=== PATIENT | female | born 1955 | race Caucasian/White ===

== ENCOUNTER 2016-11-29 16:41 | Inpatient (IN) | payer OTHER ==
[2016-11-29] MEDS ORDERED: SODIUM CHLORIDE 0.9% 1,000 ML IV STA (19:36)
--- NOTE | 2016-11-29 19:40 | ED ---
Nausea/Vomiting/Diarrhea HPI - General Chief complaint: Nausea/Vomiting/Diarrhea Stated complaint: vomiting x2 days Time Seen by Provider: 11/29/16 19:25 Source: patient, family, RN notes reviewed Mode of arrival: wheelchair Limitations: no limitations - History of Present Illness Initial comments: 61-year-old female presents emergency Department chief complaint nausea vomiting since yesterday morning. Patient states that she has continuous he vomited. Patient states she just feels very nauseous at the time but has no real abdominal pain. Patient does admit to a prior cholecystectomy, tubal ligation and multiple C-sections. Patient states that she is on dialysis for renal failure secondary to her diabetes. Patient states she has not checked her blood sugar recently. States it has been up and down over the last 24 hours. He states she's not been hospitalist for diabetes recently. Patient states that she has fistula noted on the left arm for dialysis. Patient states she goes Sunday, , Sunday. Patient denies any chest pain or shortness breath. Patient denies fever, chills. Patient had no recent sick contacts with similar symptoms. - Related Data Home Medications Medication Instructions Recorded Confirmed Insulin Glargine [Lantus] 27 unit SQ HS 06/28/15 11/29/16 Furosemide [Lasix] 40 mg PO BID 09/08/15 11/29/16 Carvedilol 25 mg PO BID 09/22/15 11/29/16 Dicyclomine [Bentyl] 10 - 20 mg PO QID PRN 09/22/15 11/29/16 Metolazone [Zaroxolyn] 2.5 mg PO QAM 12/03/15 11/29/16 Colchicine [Colcrys] 0.6 mg PO DAILY 06/27/16 11/29/16 Gabapentin [Neurontin] 300 mg PO DAILY 06/27/16 11/29/16 Insulin Lispro [humaLOG Kwikpen] See Protocol SQ AC-TID 06/27/16 11/29/16 Aspirin [Adult Low Dose Aspirin EC] 81 mg PO DAILY 09/16/16 11/29/16 Fosrenol 500 mg PO AC-TID 09/16/16 11/29/16 Lidocaine-Prilocaine Cream [Emla 1 applic TOPICAL DAILY PRN 11/29/16 11/29/16 Cream 2.5%/2.5%] Lisinopril [Zestril] 10 mg PO DAILY 11/29/16 11/29/16 Multivitamins, Thera [Multivitamin] 1 tab PO DAILY 11/29/16 11/29/16 Ondansetron HCl [Zofran] 4 mg PO Q6H PRN 11/29/16 11/29/16 amLODIPine [Norvasc] 10 mg PO DAILY 11/29/16 11/29/16 Allergies Allergy/AdvReac Type Severity Reaction Status Date / Time sulfamethoxazole AdvReac Nausea & Verified 11/29/16 19:23 [From Bactrim] Vomiting,dyspnea trimethoprim [From Bactrim] AdvReac Nausea & Verified 11/29/16 19:23 Vomiting,dyspnea Review of Systems ROS Statement: Those systems with pertinent positive or pertinent negative responses have been documented in the HPI. ROS Other: All systems not noted in ROS Statement are negative. Past Medical History Past Medical History: Diabetes Mellitus, Hypertension, Renal Disease Additional Past Medical History / Comment(s): Stage III renal disease, neuropathy bilateral legs and feet, bilateral lower leg edema, IBS, gout, pt uses walker, dialysis fistula left arm- dialysis since July 2016, tue, , sat dialysis History of Any Multi-Drug Resistant Organisms: None Reported Past Surgical History: Appendectomy, Cardiac Ablation, Section, Cholecystectomy, Tubal Ligation Additional Past Surgical History / Comment(s): bilateral cataract removal with lens implants, C-sections, bilateral breast biopsies, graft left arm done for dialysis Past Anesthesia/Blood Transfusion Reactions: Postoperative Nausea & Vomiting ( PONV) Past Psychological History: No Psychological Hx Reported Additional Psychological History / Comment(s): Pt resides with her spouse. She is independent. She uses no assistive device. She drives. Smoking Status: Never smoker Past Alcohol Use History: None Reported Past Drug Use History: None Reported - Past Family History Father Family Medical History: Cancer, Diabetes Mellitus Additional Family Medical History / Comment(s): Father had prostate cancer. Mother Family Medical History: Cancer Additional Family Medical History / Comment(s): Mother had breast cancer. General Exam Limitations: no limitations General appearance: alert, in no apparent distress Head exam: Present: atraumatic, normocephalic, normal inspection Respiratory exam: Present: normal lung sounds bilaterally. Absent: respiratory distress, wheezes, rales, rhonchi, stridor Cardiovascular Exam: Present: regular rate, normal rhythm, normal heart sounds. Absent: systolic murmur, diastolic murmur, rubs, gallop, clicks GI/Abdominal exam: Present: soft, normal bowel sounds. Absent: distended, tenderness, guarding, rebound, rigid Neurological exam: Present: alert, oriented X3, CN II-XII intact Skin exam: Present: warm, dry, intact, normal color. Absent: rash Course Vital Signs 11/29/16 11/29/16 17:54 21:00 Temperature 97.1 F L 98 F Pulse Rate 90 82 Respiratory 20 20 Rate Blood Pressure 231/99 202/83 O2 Sat by Pulse 98 96 Oximetry Medical Decision Making - Lab Data Result diagrams: 11/29/16 19:50 11/29/16 20:48 Lab Results 11/29/16 11/29/16 11/29/16 Range/Units 19:50 19:50 19:52 WBC 17.2 H (3.8-10.6) k/uL RBC 4.40 (3.80-5.40) m/uL Hgb 14.7 (11.4-16.0) gm/dL Hct 45.3 (34.0-46.0) % MCV 103.0 H (80.0-100.0) fL MCH 33.5 (25.0-35.0) pg MCHC 32.5 (31.0-37.0) g/dL RDW 15.4 (11.5-15.5) % Plt Count 192 (150-450) k/uL Neutrophils % 86 % Lymphocytes % 9 % Monocytes % 4 % Eosinophils % 0 % Basophils % 1 % Neutrophils # 14.7 H (1.3-7.7) k/uL Lymphocytes # 1.6 (1.0-4.8) k/uL Monocytes # 0.7 (0-1.0) k/uL Eosinophils # 0.0 (0-0.7) k/uL Basophils # 0.1 (0-0.2) k/uL Macrocytosis Slight Sodium (137-145) mmol/L Potassium (3.5-5.1) mmol/L Chloride (98-107) mmol/L Carbon Dioxide (22-30) mmol/L Anion Gap mmol/L BUN (7-17) mg/dL Creatinine (0.52-1.04) mg/dL Est GFR (MDRD) Af Amer (>60 ml/min/1.73 sqM) Est GFR (MDRD) Non-Af (>60 ml/min/1.73 sqM) Glucose (74-99) mg/dL POC Glucose (mg/dL) 366 H (75-99) mg/dL POC Glu Rope Coiling Machine Operator ID Darrel Nunez Plasma Lactic Acid Milton 3.2 H* (0.7-2.0) mmol/L Calcium (8.4-10.2) mg/dL Phosphorus (2.5-4.5) mg/dL Magnesium (1.6-2.3) mg/dL Total Bilirubin (0.2-1.3) mg/dL AST (14-36) U/L ALT (9-52) U/L Alkaline Phosphatase (38-126) U/L Total Protein (6.3-8.2) g/dL Albumin (3.5-5.0) g/dL Amylase (30-110) U/L Lipase (23-300) U/L Urine Color Urine Appearance (Clear) Urine pH (5.0-8.0) Ur Specific [place] (1.001-1.035) Urine Protein (Negative) Urine Glucose (UA) (Negative) Urine Ketones (Negative) Urine Blood (Negative) Urine Nitrate (Negative) Urine Bilirubin (Negative) Urine Urobilinogen (<2.0) mg/dL Ur Leukocyte Esterase (Negative) Urine RBC (0-5) /hpf Urine WBC (0-5) /hpf Ur Squamous Epith Cells (0-4) /hpf Urine Bacteria (None) /hpf Urine Mucus (None) /hpf Gastric Occult Blood (Negative) Acetone, Qual (Negative) 11/29/16 11/29/16 11/29/16 Range/Units 20:38 20:48 21:09 WBC (3.8-10.6) k/uL RBC (3.80-5.40) m/uL Hgb (11.4-16.0) gm/dL Hct (34.0-46.0) % MCV (80.0-100.0) fL MCH (25.0-35.0) pg MCHC (31.0-37.0) g/dL RDW (11.5-15.5) % Plt Count (150-450) k/uL Neutrophils % % Lymphocytes % % Monocytes % % Eosinophils % % Basophils % % Neutrophils # (1.3-7.7) k/uL Lymphocytes # (1.0-4.8) k/uL Monocytes # (0-1.0) k/uL Eosinophils # (0-0.7) k/uL Basophils # (0-0.2) k/uL Macrocytosis Sodium 140 (137-145) mmol/L Potassium 4.2 (3.5-5.1) mmol/L Chloride 95 L (98-107) mmol/L Carbon Dioxide 19 L (22-30) mmol/L Anion Gap 26 mmol/L BUN 30 H (7-17) mg/dL Creatinine 4.60 H (0.52-1.04) mg/dL Est GFR (MDRD) Af Amer 12 (>60 ml/min/1.73 sqM) Est GFR (MDRD) Non-Af 10 (>60 ml/min/1.73 sqM) Glucose 379 H (74-99) mg/dL POC Glucose (mg/dL) (75-99) mg/dL POC Glu Rope Coiling Machine Operator ID Plasma Lactic Acid [place] (0.7-2.0) mmol/L Calcium 9.2 (8.4-10.2) mg/dL Phosphorus 5.6 H (2.5-4.5) mg/dL Magnesium 2.4 H (1.6-2.3) mg/dL Total Bilirubin 1.0 (0.2-1.3) mg/dL AST 28 (14-36) U/L ALT 32 (9-52) U/L Alkaline Phosphatase 97 (38-126) U/L Total Protein 7.2 (6.3-8.2) g/dL Albumin 4.1 (3.5-5.0) g/dL Amylase 32 (30-110) U/L Lipase 23 (23-300) U/L Urine Color Yellow Urine Appearance Clear (Clear) Urine pH 7.0 (5.0-8.0) Ur Specific [place] 1.009 (1.001-1.035) Urine Protein 4+ H (Negative) Urine Glucose (UA) 4+ H (Negative) Urine Ketones 3+ H (Negative) Urine Blood Small H (Negative) Urine Nitrate Negative (Negative) Urine Bilirubin Negative (Negative) Urine Urobilinogen <2.0 (<2.0) mg/dL Ur Leukocyte Esterase Negative (Negative) Urine RBC 2 (0-5) /hpf Urine WBC 1 (0-5) /hpf Ur Squamous Epith Cells 1 (0-4) /hpf Urine Bacteria Rare H (None) /hpf Urine Mucus Rare H (None) /hpf Gastric Occult Blood Positive (Negative) Acetone, Qual Positive (Negative) Disposition Clinical Impression: DKA (diabetic ketoacidoses), Upper GI bleed, Chronic renal failure, Hypertension, Nausea & vomiting Disposition: ADMITTED IP TO THIS HOSP
[2016-11-29] MEDS ORDERED: LABETALOL SYRINGE 5 MG/ML IVP STA (19:41)
[2016-11-29 19:57] LABS: Glucose,Whole Blood 366 mg/dL (75-99)
[2016-11-29] MEDS ORDERED: ONDANSETRON 4 MG/2 ML VIAL IVP STA (19:59)
[2016-11-29 20:09] LABS: Basophils # (A) 0.1 k/uL (0-0.2); Basophils % (A) 1 %; CHCM 33.2; Eosinophils % (A) 0 %; HCT 45.3 % (34.0-46.0); HDW 2.93; HGB 14.7 gm/dL (11.4-16.0); Luc # (Auto) 0.06; Luc % (Auto) 0; Lymphocytes # (A) 1.6 k/uL (1.0-4.8); Lymphocytes % (A) 9 %; MCH 33.5 pg (25.0-35.0); MCHC 32.5 g/dL (31.0-37.0); Macrocytosis Slight; Mean Platelet Volume 9.1; Monocytes # (A) 0.7 k/uL (0-1.0); Monocytes % (A) 4 %; Neutrophils # (A) 14.7 k/uL (1.3-7.7); Neutrophils % (A) 86 %; RDW 15.4 % (11.5-15.5); WBC 17.2 k/uL (3.8-10.6); WBC (Perox) 17.07
--- NOTE | 2016-11-29 20:26 | XR ---
EXAMINATION TYPE: XR KUB DATE OF EXAM: 11/29/2016 8:21 PM COMPARISON: NONE HISTORY: Vomiting for 2 days TECHNIQUE: 2 views FINDINGS: There is no sign of intestinal obstruction or pneumoperitoneum. Fecal pattern is normal. Th ere is no sign of a mass. Lung bases are clear. There are no pathologic calcifications over the kidne ys. IMPRESSION: Nonacute abdomen.
[2016-11-29] MEDS ORDERED: PANTOPRAZOLE 40 MG/10 ML VIAL IVP STA (20:49)
[2016-11-29 20:50] LABS: Appearance,Urine Clear (Clear); Bacteria,Urine Rare /hpf; Bilirubin,Urine Negative (Negative); Glucose,Urine (UA) 4+ (Negative); Leukocyte Esterase,Urine Negative (Negative); Mucus,Urine Rare /hpf; Nitrite,Urine Negative (Negative); Particle Count 1430; Protein,Urine 4+ (Negative); RBC,Urine 2 /hpf (0-5); Specific Gravity,Urine 1.009 (1.001-1.035); Squamous Epithelial Cell,Urine 1 /hpf (0-4); UA Billing (MACRO vs. MICRO) MICRO; Urobilinogen,Urine <2.0 mg/dL (<2.0); WBC,Urine 1 /hpf (0-5)
[2016-11-29] MEDS ORDERED: SODIUM CHLORIDE 0.9% 1,000 ML IV ONE (20:52)
[2016-11-29 20:53] LABS: Ketones,Urine 3+ (Negative)
[2016-11-29 21:13] LABS: ALT 32 U/L (9-52); AST 28 U/L (14-36); Alkaline Phosphatase 97 U/L (38-126); Amylase 32 U/L (30-110); Anion Gap 26 mmol/L; Blood Urea Nitrogen 30 mg/dL (7-17); Calcium 9.2 mg/dL (8.4-10.2); Carbon Dioxide 19 mmol/L (22-30); Chloride 95 mmol/L (98-107); Glucose 379 mg/dL (74-99); Magnesium 2.4 mg/dL (1.6-2.3); Phosphorous 5.6 mg/dL (2.5-4.5); Potassium 4.2 mmol/L (3.5-5.1); Sodium 140 mmol/L (137-145); Total Protein 7.2 g/dL (6.3-8.2)
[2016-11-29 21:15] LABS: Non-African American GFR(MDRD) 10 (>60 ml/min/1.73 sqM)
[2016-11-29] MEDS: INSULIN REGULAR 100 UNIT in SODIUM CHLORIDE 0.9% 100 ML IV SCH (21:51)
[2016-11-29 21:56] LABS: Glucose,Whole Blood 353 mg/dL (75-99)
[2016-11-29] MEDS: ONDANSETRON 4 MG/2 ML VIAL IVP PRN (22:25)
[2016-11-29 22:50] LABS: Hemoglobin A1C 7.8 % (4.2-6.1)
[2016-11-29 23:17] LABS: Glucose,Whole Blood 328 mg/dL (75-99)
[2016-11-30] MEDS ORDERED: METOCLOPRAMIDE 5 MG/ML 2 ML VIAL IVP STA (00:32)
[2016-11-30 00:41] LABS: Glucose,Whole Blood 238 mg/dL (75-99)
[2016-11-30] MEDS: D5-0.45% NACL WITH KCL 20MEQ/L 1,000 ML IV SCH ×3 (00:41→08:31)
[2016-11-30 01:15] LABS: Basophils # (A) 0.1 k/uL (0-0.2); Basophils % (A) 0 %; CH 33.6; CHCM 32.7; Eosinophils # (A) 0.1 k/uL (0-0.7); Eosinophils % (A) 0 %; HCT 39.4 % (34.0-46.0); HDW 2.89; HGB 12.6 gm/dL (11.4-16.0); Luc # (Auto) 0.07; Luc % (Auto) 1; Lymphocytes # (A) 1.2 k/uL (1.0-4.8); Lymphocytes % (A) 9 %; MCH 33.1 pg (25.0-35.0); MCHC 32.1 g/dL (31.0-37.0); MCV 103.2 fL (80.0-100.0); Macrocytosis Moderate; Mean Platelet Volume 8.7; Monocytes # (A) 0.7 k/uL (0-1.0); Monocytes % (A) 5 %; Neutrophils # (A) 12.1 k/uL (1.3-7.7); Neutrophils % (A) 85 %; RBC 3.82 m/uL (3.80-5.40); RDW 15.4 % (11.5-15.5); WBC 14.3 k/uL (3.8-10.6); WBC (Perox) 15.16
[2016-11-30 01:24] LABS: Phosphorous 3.6 mg/dL (2.5-4.5); Potassium 3.3 mmol/L (3.5-5.1)
[2016-11-30 01:43] LABS: Glucose,Whole Blood 189 mg/dL (75-99)
[2016-11-30] MEDS: SODIUM CHLORIDE 0.9% 1,000 ML IV SCH ×3 (01:43→07:51)
[2016-11-30] MEDS ORDERED: LABETALOL SYRINGE 5 MG/ML IVP PRN (02:13)
[2016-11-30] MEDS ORDERED: Potassium Replacement Protocol 1 EACH MISC MISCELLANE PRN (02:19)
[2016-11-30 02:42] LABS: Glucose,Whole Blood 170 mg/dL (75-99)
[2016-11-30] MEDS: POTASSIUM CHLORIDE ER 20 MEQ TAB.ER PO SCH ×3 (02:42→07:05)
[2016-11-30] MEDS: cloNIDine HCL 0.2 MG TAB PO SCH ×4 (02:42→21:19)
[2016-11-30 03:39] LABS: Glucose,Whole Blood 153 mg/dL (75-99)
[2016-11-30 04:30] LABS: Glucose,Whole Blood 111 mg/dL (75-99)
[2016-11-30 05:34] LABS: Glucose,Whole Blood 84 mg/dL (75-99)
[2016-11-30 05:38] LABS: Basophils # (A) 0.1 k/uL (0-0.2); Basophils % (A) 1 %; CH 33.6; CHCM 33.1; Eosinophils # (A) 0.2 k/uL (0-0.7); Eosinophils % (A) 1 %; HCT 37.1 % (34.0-46.0); HDW 2.88; Luc # (Auto) 0.18; Luc % (Auto) 1; Lymphocytes # (A) 1.9 k/uL (1.0-4.8); Lymphocytes % (A) 13 %; MCH 32.9 pg (25.0-35.0); MCHC 32.3 g/dL (31.0-37.0); Macrocytosis Slight; Mean Platelet Volume 9.2; Monocytes % (A) 7 %; Neutrophils # (A) 10.9 k/uL (1.3-7.7); Neutrophils % (A) 77 %; RBC 3.64 m/uL (3.80-5.40); RDW 15.4 % (11.5-15.5); WBC 14.3 k/uL (3.8-10.6)
[2016-11-30 05:53] LABS: Phosphorous 2.9 mg/dL (2.5-4.5); Potassium 3.8 mmol/L (3.5-5.1)
[2016-11-30 05:59] LABS: Glucose,Whole Blood 87 mg/dL (75-99)
[2016-11-30 06:43] LABS: Glucose,Whole Blood 100 mg/dL (75-99)
[2016-11-30] MEDS: ONDANSETRON 4 MG/2 ML VIAL IVP PRN ×3 (07:03→19:34)
[2016-11-30] MEDS ORDERED: GELATIN SPONGE,ABSORB (SMALL) 1 EACH SPONGE ONE (08:00)
[2016-11-30] MEDS: CARVEDILOL 12.5 MG TAB PO SCH ×2 (08:03→21:19)
[2016-11-30] MEDS: FUROSEMIDE 40 MG TAB PO SCH ×2 (08:04→08:06)
[2016-11-30] MEDS: amLODIPine 10 MG TAB PO SCH (08:04)
[2016-11-30] MEDS: LISINOPRIL 10 MG TAB PO SCH (08:04)
[2016-11-30] MEDS: METOLAZONE 2.5 MG TAB PO SCH ×2 (08:05→08:06)
[2016-11-30] MEDS: PANTOPRAZOLE 40 MG/10 ML VIAL IVP SCH ×2 (08:05→21:22)
[2016-11-30 08:11] LABS: Glucose,Whole Blood 136 mg/dL (75-99)
[2016-11-30] MEDS: INSULIN REGULAR 100 UNIT in SODIUM CHLORIDE 0.9% 100 ML IV SCH (08:31)
[2016-11-30 09:11] LABS: Glucose,Whole Blood 144 mg/dL (75-99)
[2016-11-30 10:14] LABS: Glucose,Whole Blood 153 mg/dL (75-99)
[2016-11-30 10:37] LABS: Calcium 8.6 mg/dL (8.4-10.2); Potassium 3.9 mmol/L (3.5-5.1); Total Bilirubin 0.7 mg/dL (0.2-1.3)
[2016-11-30 10:46] VITALS: BMI 35.3
[2016-11-30 11:16] LABS: Glucose,Whole Blood 167 mg/dL (75-99)
--- NOTE | 2016-11-30 11:59 | P.CONS ---
History of Present Illness - Reason for Consult Consult date: 11/30/16 Upper GI bleed coffee-ground emesis Requesting physician: Usman Silva - History of Present Illness 61-year-old female patient Dr. Ingram with a past medical history of insulin- dependent diabetes mellitus, end-stage renal disease hemodialysis Sunday, hypertension, neuropathy, gout, and IBS. Admitted with DKA intractable nausea vomiting with a few episodes of coffee-ground emesis. Symptoms started 2 days ago. This morning she is having considerable amount of nausea with clear colored phlegm in emesis basin. Denies hematochezia or melena. No fever or chills. No history of DKA, peptic ulcer disease or EGD. Admission white count 17 currently 14. Hemoglobin 12. Platelet 184. BUN 32. Creatinine 4.6. Glucose 100-366. Intravenous insulin. Mild midepigastric discomfort. Review of Systems Constitutional: Denies fever, chills, sweats, weight gain, or loss. HEENT: Negative for migraines, blurred vision or loss, earaches, drainage, tinnitus, oral mucosal lesions, dysphagia, or odynophagia. CARDIAC: Hypertension. Negative for chest pain, arrhythmias, or palpitation. RESPIRATORY: Negative for shortness of breath, hemoptysis, cough, or sputum production. GI: See HPI for pertinent findings. : Negative for hematuria, urgency, frequency, polyuria, or dysuria. GYNc: Denies possibility of . Negative vaginal discharge. MUSCULOSKELETAL: Negative for muscle aches, swelling, arthritis, and arthralgias. NEUROLOGIC: Neuropathy. Negative for stroke or TIA. ENDOCRINE: Gout. Insulin-dependent diabetes mellitus. End-stage renal disease. Negative for thyroid problems. SKIN: Negative for rash or itching. PSYCHIATRIC: Negative history for depression and anxiety All systems: negative (See HPI) Past Medical History Past Medical History: Diabetes Mellitus, Hypertension, Renal Disease Additional Past Medical History / Comment(s): Stage III renal disease, neuropathy bilateral legs and feet, bilateral lower leg edema, IBS, gout, pt uses walker, dialysis fistula left arm- dialysis since July 2016, sun, , sun dialysis History of Any Multi-Drug Resistant Organisms: None Reported Past Surgical History: Appendectomy, Cardiac Ablation, Section, Cholecystectomy, Tubal Ligation Additional Past Surgical History / Comment(s): bilateral cataract removal with lens implants, C-sections, bilateral breast biopsies, graft left arm done for dialysis Past Anesthesia/Blood Transfusion Reactions: Postoperative Nausea & Vomiting ( PONV) Past Psychological History: No Psychological Hx Reported Additional Psychological History / Comment(s): Pt resides with her spouse. She is independent. She uses no assistive device. She drives. Smoking Status: Never smoker Past Alcohol Use History: None Reported Past Drug Use History: None Reported - Past Family History Father Family Medical History: Cancer, Diabetes Mellitus Additional Family Medical History / Comment(s): Father had prostate cancer. Mother Family Medical History: Cancer Additional Family Medical History / Comment(s): Mother had breast cancer. Medications and Allergies Home Medications Medication Instructions Recorded Confirmed Type Insulin Glargine [Lantus] 27 unit SQ HS 06/28/15 11/29/16 History Carvedilol 25 mg PO BID 09/22/15 11/29/16 History Colchicine [Colcrys] 0.6 mg PO DAILY 06/27/16 11/29/16 History Gabapentin [Neurontin] 300 mg PO DAILY 06/27/16 11/29/16 History Insulin Lispro [humaLOG Kwikpen] See Protocol SQ AC-TID 06/27/16 11/29/16 History Aspirin [Adult Low Dose Aspirin EC] 81 mg PO DAILY 09/16/16 11/29/16 History Fosrenol 500 mg PO AC-TID 09/16/16 11/29/16 History Lidocaine-Prilocaine Cream [Emla 1 applic TOPICAL DAILY PRN 11/29/16 11/29/16 History Cream 2.5%/2.5%] Lisinopril [Zestril] 10 mg PO DAILY 11/29/16 11/29/16 History Multivitamins, Thera [Multivitamin] 1 tab PO DAILY 11/29/16 11/29/16 History Ondansetron HCl [Zofran] 4 mg PO Q6H PRN 11/29/16 11/29/16 History amLODIPine [Norvasc] 10 mg PO DAILY 11/29/16 11/29/16 History Allergies Allergy/AdvReac Type Severity Reaction Status Date / Time sulfamethoxazole AdvReac Nausea & Verified 11/29/16 19:23 [From Bactrim] Vomiting,dyspnea trimethoprim [From Bactrim] AdvReac Nausea & Verified 11/29/16 19:23 Vomiting,dyspnea Physical Exam Vitals: Vital Signs Temp Pulse Pulse Resp BP BP BP 11/30/16 11:17 98 F 71 18 158/70 11/30/16 08:00 98.1 F 104 H 18 168/89 11/30/16 04:13 97 F L 81 18 176/76 11/30/16 02:30 178/83 11/30/16 01:30 97.7 F 90 18 215/80 229/100 11/30/16 01:01 98.9 F 84 19 179/73 11/29/16 23:34 77 18 164/72 11/29/16 22:26 98.1 F 85 16 188/89 11/29/16 21:53 98 F 84 18 191/82 Pulse Ox 11/30/16 11:17 93 L 11/30/16 08:00 92 L 11/30/16 04:13 91 L 11/30/16 02:30 11/30/16 01:30 94 L 11/30/16 01:01 95 11/29/16 23:34 94 L 11/29/16 22:26 97 11/29/16 21:53 97 Intake and Output 11/29/16 11/30/16 11/30/16 22:59 06:59 14:59 Intake Total 66.449 5.485 Balance 66.449 5.485 Intake: Intake, IV Titration 66.449 5.485 Amount Insulin Regular 100 unit 66.449 5.485 In Sodium Chloride 0.9% 100 ml @ 0.1 UNITS/KG/HR 9.16 mls/hr IV .Q11H2M [facility] Rx#:[id number] Other: # Voids 0 Weight 90.5 kg 90.5 kg Patient Weight 12/01/16 06:59 Weight 90.5 kg General appearance: The patient is alert, oriented, in no acute distress. HET: Head is normocephalic and atraumatic. Pupils are equal and reactive. Oropharynx is clear without lesions. Neck: Supple without lymphadenopathy. Trachea midline. Heart: S1 S2. Regular rate and rhythm. Lungs: No crackles or wheezes are heard. Abdomen: Soft, nontender, nondistended with bowel sounds. No peritoneal signs. No palpable organomegaly or masses. Extremities: Normal skin color and turgor. No cyanosis, rash, ulceration, clubbing, or edema. Radial and pedal pulses are 2/4 bilaterally. Neurological: No focal deficits. Strength and sensation are grossly intact. Results CBC & Chem 7: 11/30/16 05:23 11/30/16 09:59 Labs: Abnormal Lab Results - Last 24 Hours (Table) 11/29/16 11/29/16 11/30/16 Range/Units 21:56 23:15 00:27 WBC (3.8-10.6) k/uL RBC (3.80-5.40) m/uL MCV (80.0-100.0) fL Neutrophils # (1.3-7.7) k/uL Potassium (3.5-5.1) mmol/L BUN (7-17) mg/dL Creatinine (0.52-1.04) mg/dL Glucose (74-99) mg/dL POC Glucose (mg/dL) 353 H 328 H 238 H (75-99) mg/dL Plasma Lactic Acid [place] (0.7-2.0) mmol/L Total Protein (6.3-8.2) g/dL Albumin (3.5-5.0) g/dL 11/30/16 11/30/16 11/30/16 Range/Units 01:00 01:00 01:41 WBC 14.3 H (3.8-10.6) k/uL RBC (3.80-5.40) m/uL MCV 103.2 H (80.0-100.0) fL Neutrophils # 12.1 H (1.3-7.7) k/uL Potassium 3.3 L (3.5-5.1) mmol/L BUN 32 H (7-17) mg/dL Creatinine 4.60 H (0.52-1.04) mg/dL Glucose 231 H (74-99) mg/dL POC Glucose (mg/dL) 189 H (75-99) mg/dL Plasma Lactic Acid [place] (0.7-2.0) mmol/L Total Protein (6.3-8.2) g/dL Albumin (3.5-5.0) g/dL 11/30/16 11/30/16 11/30/16 Range/Units 02:40 03:37 04:28 WBC (3.8-10.6) k/uL RBC (3.80-5.40) m/uL MCV (80.0-100.0) fL Neutrophils # (1.3-7.7) k/uL Potassium (3.5-5.1) mmol/L BUN (7-17) mg/dL Creatinine (0.52-1.04) mg/dL Glucose (74-99) mg/dL POC Glucose (mg/dL) 170 H 153 H 111 H (75-99) mg/dL Plasma Lactic Acid [place] (0.7-2.0) mmol/L Total Protein (6.3-8.2) g/dL Albumin (3.5-5.0) g/dL 11/30/16 11/30/16 11/30/16 Range/Units 05:23 05:23 05:23 WBC 14.3 H (3.8-10.6) k/uL RBC 3.64 L (3.80-5.40) m/uL MCV 102.0 H (80.0-100.0) fL Neutrophils # 10.9 H (1.3-7.7) k/uL Potassium (3.5-5.1) mmol/L BUN 34 H (7-17) mg/dL Creatinine 4.44 H (0.52-1.04) mg/dL Glucose (74-99) mg/dL POC Glucose (mg/dL) (75-99) mg/dL Plasma Lactic Acid [place] 2.3 H* (0.7-2.0) mmol/L Total Protein (6.3-8.2) g/dL Albumin (3.5-5.0) g/dL 11/30/16 11/30/16 11/30/16 Range/Units 06:42 08:07 09:04 WBC (3.8-10.6) k/uL RBC (3.80-5.40) m/uL MCV (80.0-100.0) fL Neutrophils # (1.3-7.7) k/uL Potassium (3.5-5.1) mmol/L BUN (7-17) mg/dL Creatinine (0.52-1.04) mg/dL Glucose (74-99) mg/dL POC Glucose (mg/dL) 100 H 136 H 144 H (75-99) mg/dL Plasma Lactic Acid [place] (0.7-2.0) mmol/L Total Protein (6.3-8.2) g/dL Albumin (3.5-5.0) g/dL 11/30/16 11/30/16 11/30/16 Range/Units 09:59 10:02 11:14 WBC (3.8-10.6) k/uL RBC (3.80-5.40) m/uL MCV (80.0-100.0) fL Neutrophils # (1.3-7.7) k/uL Potassium (3.5-5.1) mmol/L BUN 34 H (7-17) mg/dL Creatinine 4.40 H (0.52-1.04) mg/dL Glucose 164 H (74-99) mg/dL POC Glucose (mg/dL) 153 H 167 H (75-99) mg/dL Plasma Lactic Acid [place] (0.7-2.0) mmol/L Total Protein 6.0 L (6.3-8.2) g/dL Albumin 3.1 L (3.5-5.0) g/dL Assessment and Plan (1) Coffee ground emesis Narrative/Plan: Suspect gastritis possible esophagitis and possible Malka-Alvares tear exacerbated by multiple episodes of retching secondary DKA. Status: Acute (2) DKA (diabetic ketoacidoses) Status: Acute (3) Nausea & vomiting Status: Acute (4) End stage renal disease on dialysis Status: Chronic (5) Diabetes Status: Chronic Plan: 1. Protonix 40 mg IV twice daily. Will add Reglan 10 mg every 6 hours as needed for nausea. Supportive measures. Tight glycemic control. Endoscopy not planned at this time but contingent on clinical course. We'll follow with you. Monitor CBC. Thank you for this kind referral and the opportunity to participate in the care of your patient. This consultation was discussed with Dr. Stock. The impression and plan of care have been directed as dictated.
[2016-11-30] MEDS: METOCLOPRAMIDE 5 MG/ML 2 ML VIAL IVP PRN ×2 (12:11→18:40)
[2016-11-30 12:27] LABS: Glucose,Whole Blood 155 mg/dL (75-99)
[2016-11-30 13:10] LABS: Glucose,Whole Blood 154 mg/dL (75-99)
--- NOTE | 2016-11-30 14:03 | CONS ---
DATE OF CONSULTATION: 11/30/2016 REASON FOR CONSULT: End-stage renal disease. HISTORY OF PRESENT ILLNESS: Patient is a 61-year-old white female with history of end-stage renal disease on hemodialysis on a Sunday, , Sunday schedule. She was admitted to the hospital with complaints of nausea and vomiting which has been going on for a few days prior to admission. The patient denies any fever or chills. She has also had some diarrhea. She denies any significant abdominal pain. Her serum acetone was elevated. Blood sugars according to the patient had high as well as low and patient is admitted for DKA. She is currently maintained on an insulin drip. Her sugars had been ( ) on initial admission. PAST MEDICAL HISTORY: End-stage renal disease, hypertension with episodes of hypotension as well particularly with dialysis. Chronic lower extremity edema likely lymphedema, particularly in the left lower extremity as compared to the right, type 2 diabetes, obesity, neuropathy, hyperuricemia/gout. Medications at home included insulin, Lasix, Coreg, Ventolin, Zaroxolyn, Colcrys, Neurontin, Zofran, Norvasc, Fosrenol. Allergies include BACTRIM, nausea, vomiting and shortness of breath. REVIEW OF SYSTEMS: As per HPI. Other systems negative. PAST MEDICAL HISTORY: Type 2 diabetes, hypertension, end-stage renal disease, chronic lower extremity likely lymphedema, cardiac dysrhythmias status post cardiac catheterization. PAST SURGICAL HISTORY: Appendectomy, AV fistula, cardiac catheterizations, , cholecystectomy, tubal ligation, cataract surgery, breast biopsies. Social history is negative for smoking, drug abuse or alcohol abuse On examination, patient is comfortable, awake, alert and oriented x3. She is not in any acute distress. Blood pressure is 158/70, heart rate 71 per minute. She is afebrile. Examination of the heart S1 and S2. Examination of the lungs, bilateral breath sounds are heard. Abdomen is soft, nontender. No organomegaly is seen. The lower extremities shows no significant edema in the right lower extremity, there is 2+ edema in left lower extremity which is chronic and significantly improved from baseline. TIRE GROOVER exam is grossly intact. Labs show sodium 140, potassium 3.9, anion gap was at 12 and albumin 3.1, serum acetone was positive. Gastric occult blood was positive. Hemoglobin was at 12.0. White cell count 14.3, it was 17.2 on 11/29/2016. ASSESSMENT: 1. End-stage renal disease on hemodialysis on a Sunday, , Sunday schedule. Will arrange for hemodialysis today with no significant ultrafiltration. 2. Diabetic ketoacidosis, currently improving, likely discontinue the insulin drip ( ) and we will stop the fluids as well. 3. Nausea and vomiting, most likely secondary to diabetic gastroparesis. No evidence of significant infection noted at this time. 4. Chronic lower extremity edema, particularly left lower extremity, possible underlying lymphedema. PLAN: Hemodialysis today with no significant ultrafiltration, try to encourage increased oral intake depending on the nausea. Continue with the Zofran. GI has been consulted. Thank you for this consultation. Will continue to follow the patient with you during her hospitalization.
[2016-11-30 14:15] LABS: Glucose,Whole Blood 165 mg/dL (75-99)
[2016-11-30 14:39] LABS: Calcium 8.3 mg/dL (8.4-10.2); Potassium 4.9 mmol/L (3.5-5.1); Total Bilirubin 0.7 mg/dL (0.2-1.3); Total Protein 5.6 g/dL (6.3-8.2)
--- NOTE | 2016-11-30 16:43 | HP ---
DATE OF ADMISSION: Patient is a 61-year-old who follows with Dr. Ingram. She came in with complaints of end-stage renal disease, insulin-dependent diabetes mellitus. Came in with complaints of nausea, vomiting that have been going on for 3 to 4 days. Patient denied any fevers. Patient denied any flu-like symptoms. Patient was complaining of epigastric abdominal pain. Patient probably has gastritis. She was retching. Patient had an episode of hematemesis, which resolved at this point of time. Patient is admitted for DKA. Anion gap resolved and patient will be resumed on her insulin. Patient denied any dysuria, denied any cough, runny nose. Patient has end-stage renal disease, because of which patient's IV fluids will be discontinued, as her DKA resolved. Patient's diuretics will be held for today, and tomorrow they will be reinitiated back. Patient denied any history of peptic ulcer disease. We will treat her nausea, vomiting symptomatically probably due to gastritis or esophagitis. Patient will be continued on proton pump inhibitor, avoiding NSAIDs. The reason for her uncontrolled blood sugars and DKA is unknown at this point of time. REVIEW OF SYSTEMS: CONSTITUTIONAL: No fever, no malaise, no fatigue. HEENT: No recent visual problems or hearing problems. Denied any sore throat. CARDIOVASCULAR: No chest pain, orthopnea, PND, no palpitations, no syncope. PULMONARY: No shortness of breath, no cough, no hemoptysis. GASTROINTESTINAL: As described in HPI. NEUROLOGICAL: No headaches, no weakness, no numbness. HEMATOLOGICAL: Denies any bleeding or petechiae. GENITOURINARY: Denies any burning micturition, frequency, or urgency. MUSCULOSKELETAL/RHEUMATOLOGICAL: Denies any joint pain, swelling, or any muscle pain. ENDOCRINE: Denies any polyuria or polydipsia. The rest of the 14 point review of systems is negative. Past medical history is significant for: 1. Diabetes mellitus, insulin-dependent. (unsure whether type 1 or type 2) 2. Hypertension. 3. CKD. 4. End-stage renal disease secondary to diabetic nephropathy. 5. Appendectomy. 6. Cardiac ablation surgery. 7. section. 8. Cholecystectomy in the past. 9. Bilateral breast masses. 10. Left arm grafts. SOCIAL HISTORY: Denied any smoking or alcohol abuse or any drug abuse. FAMILY HISTORY: Father had cancer, diabetes mellitus. Father had prostate cancer. Mother had breast cancer. Home medications include: 1. Insulin. 2. ( ) 3. Gabapentin. 4. Lispro. 5. Aspirin. 6. Lidocaine. 7. Lisinopril. 8. Multivitamin. 9. Ondansetron. 10. Amlodipine. ALLERGIES: BACTRIM. PHYSICAL EXAMINATION: VITAL SIGNS: Temperature 98.0, pulse of 71, respiratory rate of 18, blood pressure 158/70. Saturating at 93% on room air. GENERAL: The patient is alert and oriented x3, not in any acute distress. Well developed, well nourished. HEENT: Pupils are round and equally reacting to light. EOMI. No scleral icterus. No conjunctival pallor. Normocephalic, atraumatic. No pharyngeal erythema. No thyromegaly. CARDIOVASCULAR: S1 and S2 present. No murmurs, rubs, or gallops. PULMONARY: Chest is clear to auscultation, no wheezing or crackles. ABDOMEN: Soft, nontender, nondistended, normoactive bowel sounds. No palpable organomegaly. MUSCULOSKELETAL: No joint swelling or deformity. EXTREMITIES: No cyanosis, clubbing, or pedal edema. NEUROLOGICAL: Gross neurological examination did not reveal any focal deficits. SKIN: No rashes. LABORATORY DATA: CBC, CMP are abnormal for elevated WBC count of 14,300. Patient's anion gap improved. Bicarbonate is 24. Anion gap is 10 now. BUN of 32, creatinine 4.4. Blood glucose is elevated. UA is consistent with DKA and acetone positive. ASSESSMENT AND PLAN: 1. Diabetic ketoacidosis, anion gap as well. Patient will be resumed on her insulin regimen. Will start her on diet and continue on symptomatic therapy for her nausea, vomiting. 2. Upper gastrointestinal bleed secondary to retching and esophagitis. 3. Nausea, vomiting, which probably precipitated her DKA, which is again secondary to esophagitis. Patient is on proton pump inhibitor for that. 4. End-stage renal disease, hemodialysis-dependent, because of which I will stop the IV fluids. Patient will be resumed on diuretic therapy tomorrow. 5. Diabetic neuropathy, diabetic nephropathy, end-stage renal disease secondary to diabetes. 6. Hypertension. For above-mentioned chronic medical problems, I will go ahead and continue her home medications.
[2016-11-30 16:49] LABS: Glucose,Whole Blood 190 mg/dL (75-99)
[2016-11-30] MEDS: GABAPENTIN 300 MG CAP PO SCH (17:02)
[2016-11-30] MEDS: INSULIN LISPRO (humaLOG) 300 UNIT/3 ML VIAL SQ SCH ×2 (17:03→21:16)
[2016-11-30] MEDS: SEVELAMER 800 MG TAB PO SCH (17:04)
[2016-11-30 20:36] LABS: Glucose,Whole Blood 93 mg/dL (75-99)
[2016-11-30] MEDS: INSULIN GLARGINE 100 UNIT/ML 10 ML VIAL SQ SCH (21:19)
[2016-12-01] MEDS: METOCLOPRAMIDE 5 MG/ML 2 ML VIAL IVP PRN ×2 (00:13→06:35)
[2016-12-01] MEDS: ONDANSETRON 4 MG/2 ML VIAL IVP PRN ×2 (02:01→08:04)
[2016-12-01 06:31] LABS: Glucose,Whole Blood 227 mg/dL (75-99)
[2016-12-01] MEDS: INSULIN LISPRO (humaLOG) 300 UNIT/3 ML VIAL SQ SCH ×4 (06:39→22:41)
[2016-12-01 07:10] LABS: Hepatitis B Surface Ag Index 0.07
[2016-12-01] MEDS: SEVELAMER 800 MG TAB PO SCH ×3 (07:11→16:53)
[2016-12-01 07:16] LABS: Hepatitis B Core IgM Index 0.07
[2016-12-01 07:41] LABS: Hepatitis B Surface Antibody Negative (Negative)
[2016-12-01] MEDS: amLODIPine 10 MG TAB PO SCH (08:03)
[2016-12-01] MEDS: CARVEDILOL 12.5 MG TAB PO SCH ×2 (08:03→16:53)
[2016-12-01] MEDS: COLCHICINE 0.6 MG TAB PO SCH (08:03)
[2016-12-01] MEDS: LISINOPRIL 10 MG TAB PO SCH (08:03)
[2016-12-01] MEDS: GABAPENTIN 300 MG CAP PO SCH (08:03)
[2016-12-01] MEDS: FUROSEMIDE 40 MG TAB PO SCH ×2 (08:04→16:52)
[2016-12-01] MEDS: PANTOPRAZOLE 40 MG/10 ML VIAL IVP SCH ×2 (08:04→22:43)
[2016-12-01] MEDS: cloNIDine HCL 0.2 MG TAB PO SCH ×3 (08:04→22:42)
[2016-12-01 11:33] LABS: Glucose,Whole Blood 188 mg/dL (75-99)
--- NOTE | 2016-12-01 12:01 | XR ---
EXAMINATION TYPE: XR chest 1V DATE OF EXAM: 12/01/2016 11:50 AM CLINICAL HISTORY: History of CHF with vomiting. TECHNIQUE: Single AP portable upright view of the chest is obtained. COMPARISON: Chest x-ray from September 16, 2016 FINDINGS: There is persistent cardiomegaly. There is chronic parenchymal change without suspicious n ew focal airspace opacity, pleural effusion, or pneumothorax seen bilaterally. Osseous structures ar e somewhat demineralized. IMPRESSION: Cardiomegaly without acute pulmonary process,
--- NOTE | 2016-12-01 12:06 | P.PN ---
Subjective Principal diagnosis: Nausea vomiting DKA 61-year-old female end-stage renal disease dialysis dependent admitted with DKA nausea vomiting. Reevaluated today in regards to nausea vomiting which has improved. She is tolerating soft food diet. Objective - Vital Signs Vital signs: Vital Signs Temp 97.6 F 12/01/16 11:27 Pulse 65 12/01/16 11:27 Resp 16 12/01/16 11:27 BP 167/76 12/01/16 11:27 Pulse Ox 94 L 12/01/16 11:27 Intake & Output 11/30/16 12/01/16 12/01/16 18:59 06:59 18:59 Intake Total 906.295 840 Output Total 575 500 Balance 331.295 340 Weight 90.5 kg 90.9 kg Intake: IV 900 D5-0.45% NaCl with KCl 900 20Meq/l 1,000 ml @ 75 mls /hr IV .[id number] ELIF Rx#: [id number] Intake, IV Titration 6.295 Amount Insulin Regular 100 unit 6.295 In Sodium Chloride 0.9% 100 ml @ 0.1 UNITS/KG/HR 9.16 mls/hr IV .[id number] ELIF Rx#:[id number] Oral 840 Output: Urine 575 500 Other: Voiding Method Toilet Toilet # Voids 0 - Exam General appearance: The patient is alert, oriented, in no acute distress. HET: Head is normocephalic and atraumatic. Pupils are equal and reactive. Oropharynx is clear without lesions. Neck: Supple without lymphadenopathy. Trachea midline. Heart: S1 S2. Regular rate and rhythm. Lungs: No crackles or wheezes are heard. Abdomen: Soft, nontender, nondistended with bowel sounds. No peritoneal signs. No palpable organomegaly or masses. Extremities: Normal skin color and turgor. No cyanosis, rash, ulceration, clubbing, or edema. Radial and pedal pulses are 2/4 bilaterally. Neurological: No focal deficits. Strength and sensation are grossly intact. - Labs CBC & Chem 7: 11/30/16 05:23 11/30/16 14:03 Labs: Abnormal Lab Results - Last 24 Hours (Table) 11/30/16 11/30/16 11/30/16 Range/Units 12:15 12:53 14:03 Sodium 136 L (137-145) mmol/L BUN 32 H (7-17) mg/dL Creatinine 4.40 H (0.52-1.04) mg/dL Glucose 314 H (74-99) mg/dL POC Glucose (mg/dL) 155 H 154 H (75-99) mg/dL Calcium 8.3 L (8.4-10.2) mg/dL Total Protein 5.6 L (6.3-8.2) g/dL Albumin 2.9 L (3.5-5.0) g/dL 11/30/16 11/30/16 12/01/16 Range/Units 14:13 16:48 06:30 Sodium (137-145) mmol/L BUN (7-17) mg/dL Creatinine (0.52-1.04) mg/dL Glucose (74-99) mg/dL POC Glucose (mg/dL) 165 H 190 H 227 H (75-99) mg/dL Calcium (8.4-10.2) mg/dL Total Protein (6.3-8.2) g/dL Albumin (3.5-5.0) g/dL 12/01/16 Range/Units 11:31 Sodium (137-145) mmol/L BUN (7-17) mg/dL Creatinine (0.52-1.04) mg/dL Glucose (74-99) mg/dL POC Glucose (mg/dL) 188 H (75-99) mg/dL Calcium (8.4-10.2) mg/dL Total Protein (6.3-8.2) g/dL Albumin (3.5-5.0) g/dL Assessment and Plan (1) Coffee ground emesis Narrative/Plan: Suspect gastritis possible esophagitis and possible Malka-Alvares tear exacerbated by multiple episodes of retching secondary DKA. Status: Acute (2) DKA (diabetic ketoacidoses) Status: Acute (3) Nausea & vomiting Status: Acute (4) End stage renal disease on dialysis Status: Chronic (5) Diabetes Status: Chronic Plan: 1. Nausea vomiting is improved. Case was discussed with Dr. Ruiz. Discharge per medicine. Follow up in GI office if symptoms recur. Assessment and plan a care discussed with Dr. Stock.
[2016-12-01 16:50] LABS: Glucose,Whole Blood 211 mg/dL (75-99)
--- NOTE | 2016-12-01 17:09 | PN ---
Patient is seen for follow-up for end-stage renal disease. She was dialyzed yesterday, we had only about 500 mL of ultrafiltration. Patient states she is feeling better. However, she is only able to keep down water and a little bit of the grape juice. No further abdominal pain or diarrhea noted. Patient is off of IV fluids. On examination, blood pressure was high at 183/82, heart rate 65 per minute. She is afebrile. Examination of the heart S1 and S2. Examination of the lungs: Bilateral breath sounds are heard. ABDOMEN: Soft, nontender, obese. Examination of lower extremities shows edema. More in the left lower extremity, currently decreased. Labs show potassium of 4.9 from yesterday and blood sugar 227. ASSESSMENT: 1. End-stage renal disease on hemodialysis on a Sunday, , Sunday schedule. Will arrange for hemodialysis in a.m. 2. Nausea and vomiting secondary to diabetic gastroparesis, slowly improving. 3. Chronic lower extremity edema which is actually improved from baseline as patient has been volume depleted. 4. Hypertension with significant orthostatic hypotension as outpatient. Blood pressure has been high, but we need to be cautious in terms of medications. I have asked for sitting or standing blood pressure to make sure we are not overmedicating. PLAN: Hemodialysis in a.m. Check sitting and standing blood pressures as patient has severe orthostatic hypotension.
[2016-12-01 17:28] VITALS: RESP 18
[2016-12-01 20:50] LABS: Glucose,Whole Blood 204 mg/dL (75-99)
--- NOTE | 2016-12-01 21:32 | PN ---
DATE OF SERVICE: 12/01/2016 The patient is a 61-year-old admitted secondary to diabetic ketoacidosis. Ketoacidosis resolved and the patient's blood sugars are ( ) the high because of ( ) Lantus and patient does not feel comfortable yet because she is unable to tolerate the ( ) because of which I am holding her discharge today and we will advance the diet as tolerated and ( ) discharge tomorrow. Patient does have end stage renal disease, hemodialysis depending. The patient probably can be discharged tomorrow after hemodialysis. REVIEW OF SYSTEMS: CARDIOVASCULAR: No chest pain, no orthopnea, no PND, no palpitations. PULMONARY: Denied any shortness of breath. No cough or hemoptysis. GASTROINTESTINAL: No diarrhea, nausea or vomiting. No abdominal pain. Normoactive bowel sounds. NEUROLOGIC: No headaches, no weakness, no numbness. Medications were reviewed. PHYSICAL EXAMINATION: VITAL SIGNS: Temperature 97.6. Pulse of 65, respiratory rate 16. Blood pressure is 167/76, saturating at 94% on room air. GENERAL: The patient is alert and oriented x3, not in any acute distress. Well developed, well nourished. HEENT: Pupils are round and equally reacting to light. EOMI. No scleral icterus. No conjunctival pallor. Normocephalic, atraumatic. No pharyngeal erythema. No thyromegaly. CARDIOVASCULAR: S1 and S2 present. No murmurs, rubs, or gallops. PULMONARY: Chest is clear to auscultation, no wheezing or crackles. ABDOMEN: Soft, nontender, nondistended, normoactive bowel sounds. No palpable organomegaly. MUSCULOSKELETAL: No joint swelling or deformity. EXTREMITIES: No cyanosis, clubbing, or pedal edema. NEUROLOGICAL: Gross neurological examination did not reveal any focal deficits. SKIN: No rashes. LABORATORY DATA: CBC, BMP are abnormal for elevated blood sugars of 314. The patient does have elevated BUN and creatinine although the patient is an end stage renal disease patient. ASSESSMENT AND PLAN: 1. Diabetic ketoacidosis. Ketoacidosis resolved. The patient increased the dose of Lantus. Patient uses sliding scale as directed by primary care physician ( ), I will go ahead and continue that scale at this time. 2. Nausea, vomiting, retching, secondary to esophagitis. Continue with proton pump inhibitor, advance diet as tolerated. 3. End stage renal disease modalities ( ). 4. Diabetic neuropathy. 5. Diabetic nephropathy. 6. Hypertension. PLAN: As mentioned above.
[2016-12-01] MEDS: INSULIN GLARGINE 100 UNIT/ML 10 ML VIAL SQ SCH (22:42)
[2016-12-02 00:23] VITALS: PULSE 65
[2016-12-02 06:29] LABS: Glucose,Whole Blood 211 mg/dL (75-99)
[2016-12-02] MEDS: SEVELAMER 800 MG TAB PO SCH ×3 (07:10→16:06)
[2016-12-02] MEDS: CARVEDILOL 12.5 MG TAB PO SCH ×2 (07:11→16:06)
[2016-12-02] MEDS: INSULIN LISPRO (humaLOG) 300 UNIT/3 ML VIAL SQ SCH ×3 (07:11→17:01)
[2016-12-02 07:13] LABS: Calcium 8.8 mg/dL (8.4-10.2); Potassium 3.6 mmol/L (3.5-5.1)
[2016-12-02] MEDS: PANTOPRAZOLE 40 MG/10 ML VIAL IVP SCH (07:41)
[2016-12-02] MEDS: GABAPENTIN 300 MG CAP PO SCH ×2 (09:01→16:06)
[2016-12-02] MEDS: amLODIPine 10 MG TAB PO SCH (09:57)
[2016-12-02] MEDS: cloNIDine HCL 0.2 MG TAB PO SCH ×2 (09:57→16:06)
[2016-12-02] MEDS: COLCHICINE 0.6 MG TAB PO SCH ×2 (10:40→12:07)
[2016-12-02] MEDS: FUROSEMIDE 40 MG TAB PO SCH ×3 (10:40→16:06)
[2016-12-02] MEDS: LISINOPRIL 10 MG TAB PO SCH ×2 (10:40→12:07)
--- NOTE | 2016-12-02 11:07 | PN ---
Patient is seen for followup for end-stage renal disease. She is currently doing much better. She was admitted to the hospital with nausea and vomiting and DKA. She has been eating and has been able to keep her food down. There are plans for discharge today. On examination, blood pressure is 163/77, heart rate 65 per minute. She is afebrile. EXAMINATION OF THE HEART: S1 and S2. EXAMINATION OF THE LUNGS: Bilateral breath sounds are heard. ABDOMEN: Soft, nontender, obese. Examination of lower extremities shows chronic skin changes, chronic edema. No wounds are noted. Left leg is little bit more swollen than the right neck. SHOESHINER exam is grossly intact. Labs show sodium 136, potassium 3.6, BUN 31. ASSESSMENT: 1. End-stage renal disease on hemodialysis on a Sunday, , Sunday schedule. Will arrange for hemodialysis today. Patient can be discharged post dialysis. 2. Diabetic ketoacidosis, currently resolved. 3. Hypertension with orthostatic hypotension. Currently blood pressure is staying on the higher side. 4. Patient is maintained on medications. She will need to be careful upon discharge to monitor her blood pressure at home. 5. Chronic lower extremity edema with possible lymphedema as well, currently improved. PLAN: The patient is stable for discharge post dialysis.
[2016-12-02 11:35] LABS: Glucose,Whole Blood 100 mg/dL (75-99)
[2016-12-02 14:53] VITALS: BP 162/76; TEMP 97.6
[2016-12-02 16:54] LABS: Glucose,Whole Blood 178 mg/dL (75-99)
--- NOTE | 2016-12-02 21:20 | DS ---
DATE OF ADMISSION: 11/29/2016 DATE OF DISCHARGE: 12/02/2016 Mrs. Lazar is a 61-year-old female with a past medical history of diabetes mellitus, hypertension, and end-stage disease on hemodialysis, admitted to the hospital with diabetic ketoacidosis. Patient has been started on IV fluids and insulin drip, after which her sugars have been under better control. The patient is also having nausea and vomiting with blood which was thought to be secondary to retching and due to vomiting. She was started on PPIs after which her symptoms resolved. During her hospital ( ) nephrology was on board and managing her hemodialysis. The patient has been cleared by nephrology and also by GI services that were involved in her care and she is being discharged home in stable condition today. Patient's discharge diagnoses: 1. Diabetic ketoacidosis. 2. Nausea, vomiting and retching secondary to #1. 3. ESRD on hemodialysis. 4. Diabetic neuropathy. 5. Diabetic nephropathy. 6. Hypertension The patient's discharge medications are as follows: 1. Coreg 25 mg p.o. b.i.d. 2. Colchicine 0.6 mg p.o. daily. 3. Gabapentin 300 milligrams p.o. daily. 4. Sliding scale of insulin. 5. Aspirin 81 mg p.o. daily. 6. ( ) 500 mg p.o. 3 times a day. 7. Lisinopril 10 milligrams p.o. daily. 8. Multivitamin 1 tablet p.o. daily. 9. Zofran 4 mg p.o. q.h.s. p.r.n. for nausea and vomiting. 10. Amlodipine 10 mg p.o. daily. 11. Clonidine 0.2 mg p.o. 3 times a day. 12. Lantus 35 mg p.o. q.h.s. 13. Protonix 40 mg p.o. daily. Patient is being discharged home to follow up with her primary care physician, Dr. Ingram in 3 to 4 days.
== END 2016-12-02 20:18 | disposition home or self-care (01) | DRG 637 ==
LOC: EC 16:41 → 6SEL 21:33
PROVIDERS: ADMIT Hospitalist; ATTEND Hospitalist
PROC: 5A1D60Z (ICD-10-PCS; principal; 2016-11-30)
DX: E13.10 Other specified diabetes mellitus with ketoacidosis without coma (principal); N18.6 End stage renal disease; K92.0 Hematemesis; I12.0 Hypertensive chronic kidney disease with stage 5 chronic kidney disease or end stage renal disease; K31.84 Gastroparesis; K20.9 Esophagitis, unspecified; E11.21 Type 2 diabetes mellitus with diabetic nephropathy; E11.22 Type 2 diabetes mellitus with diabetic chronic kidney disease; E11.43 Type 2 diabetes mellitus with diabetic autonomic (poly)neuropathy; I89.0 Lymphedema, not elsewhere classified; M10.9 Gout, unspecified; E86.9 Volume depletion, unspecified; I95.1 Orthostatic hypotension; E66.9 Obesity, unspecified; K29.70 Gastritis, unspecified, without bleeding; K58.0 Irritable bowel syndrome with diarrhea; Z71.3 Dietary counseling and surveillance; Z68.35 Body mass index [BMI] 35.0-35.9, adult; Z88.2 Allergy status to sulfonamides; Z90.49 Acquired absence of other specified parts of digestive tract; Z99.2 Dependence on renal dialysis; Z98.41 Cataract extraction status, right eye; Z98.42 Cataract extraction status, left eye; Z96.1 Presence of intraocular lens; Z79.4 Long term (current) use of insulin; Z79.82 Long term (current) use of aspirin; Z79.899 Other long term (current) drug therapy
CPT/HCPCS: 36415; 71010; 74000; 80048; 80051; 80053; 81001; 82009; 82150; 82271; 82565; 82607; 82947; 83036; 83605; 83690; 83735; 84100; 84520; 85025; 86704; 86705; 86706; 87340; 90935; 96361; 96365; 96366; 96375; 99285

== ENCOUNTER → 2019-01-14 | Outpatient (CLI) | payer MEDICARE, BC ==
--- NOTE | 2019-01-14 10:19 | XR ---
EXAMINATION TYPE: XR chest 2V DATE OF EXAM: 01/14/2019 COMPARISON: 07/08/2018 HISTORY: Cough for one month TECHNIQUE: Frontal and lateral views of the chest are obtained. FINDINGS: There is no focal air space opacity, pleural effusion, or pneumothorax seen. Minimal inter stitial prominence is unchanged from the prior. The cardiac silhouette size is mildly enlarged. The osseous structures are intact. IMPRESSION: No acute cardiopulmonary process, unchanged from the prior.
== END ==
LOC: RADXRMAIN 09:45
PROVIDERS: ATTEND Nurse Practitioner Family
DX: R05 Cough (principal)
CPT/HCPCS: 71046

== ENCOUNTER 2019-01-17 05:48 | Observation (INO) | payer MEDICARE, BC ==
[2019-01-17 06:47] LABS: Basophils # (A) 0.1 k/uL (0-0.2); Basophils % (A) 1 %; Eosinophils # (A) 0.4 k/uL (0-0.7); Eosinophils % (A) 3 %; HCT 37.9 % (34.0-46.0); HGB 12.1 gm/dL (11.4-16.0); Lymphocytes # (A) 2.8 k/uL (1.0-4.8); Lymphocytes % (A) 18 %; MCH 32.1 pg (25.0-35.0); MCHC 31.9 g/dL (31.0-37.0); MCV 100.7 fL (80.0-100.0); Macrocytosis Slight; Mean Platelet Volume 7.3; Monocytes # (A) 0.8 k/uL (0-1.0); Monocytes % (A) 5 %; Neutrophils # (A) 11.1 k/uL (1.3-7.7); Neutrophils % (A) 72 %; Platelet Count 259 k/uL (150-450); RBC 3.76 m/uL (3.80-5.40); RDW 13.7 % (11.5-15.5); WBC 15.5 k/uL (3.8-10.6)
[2019-01-17 07:00] LABS: Albumin 3.9 g/dL (3.5-5.0); Calcium 8.9 mg/dL (8.4-10.2); Potassium 4.9 mmol/L (3.5-5.1); Total Bilirubin 0.7 mg/dL (0.2-1.3); Total Protein 7.2 g/dL (6.3-8.2)
--- NOTE | 2019-01-17 07:00 | ED ---
Abdominal Pain HPI - General Source: patient Mode of arrival: EMS Limitations: no limitations <Adriane Steiner - Last Filed: 01/17/19 06:49> <Sid De Anda - Last Filed: 01/17/19 09:09> - General Chief Complaint: Abdominal Pain Stated Complaint: Chronic Low Back Pain Time Seen by Provider: 01/17/19 06:26 - History of Present Illness Initial Comments: Clarissa is a 63-year-old female who presents to the emergency department today for evaluation of back pain and bilateral flank pain. Patient reports the pain b ramakrishna a couple days ago without trauma or injury. She reports that the pain is been progressively worsening since that time. She describes the pain as an aching or bandlike across her low back. Pain is worse with any movement. Patient denies any sciatic-like pain or paresthesias in lower extremity she denies any loss of sensation in the perineal area, she rarely makes urine but denies any urinary incontinence or constipation. She has no trauma. No fevers or chills. Patient has been compliant with her dialysis she is due for dialysis this morning. EMS reports that they arrived on scene to find the patient sitting appearing very uncomfortable crying. They treated her with IM morphine and Zofran and transported her here hemodynamically stable. (Adriane Steiner) Patient was sent out to me by previous shift physician Dr. Steiner. Instruction at signout was to follow-up with urine studies and assess for final disposition. Patient was evaluated by myself. Labs and imaging studies were reviewed. Patient appears to have debilitating back pain that is exacerbated by movement. There is concern that patient is having back pain secondary to mostly skeletal in origin. Patient is given IV analgesia. An attempt was made to ambulate patient. She was not able to ambulate. Given degree of disability we will place patient in observation unit with spinal surgery consultation. Nephrology was also consulted because patient is scheduled to have dialysis today. Patient is agreeable to disposition. Patient was given Decadron per request by internal medicine (Sid De Anda) - Related Data Home Medications Medication Instructions Recorded Confirmed Carvedilol 25 mg PO BID 09/22/15 01/17/19 Colchicine [Colcrys] 0.6 mg PO DAILY PRN 06/27/16 01/17/19 Gabapentin [Neurontin] 300 mg PO DAILY PRN 06/27/16 01/17/19 Aspirin [Adult Low Dose Aspirin EC] 81 mg PO DAILY 09/16/16 01/17/19 amLODIPine [Norvasc] 10 mg PO HS 11/29/16 01/17/19 Calcium Carb-Mag Carb-Folic 1 tab PO AC-TID 07/08/18 01/17/19 [Magnebind 400 Rx] Furosemide [Lasix] 40 mg PO BID 07/08/18 01/17/19 HYDROcodone/APAP 7.5-325MG [[place] 1 tab PO DAILY PRN 07/08/18 01/17/19 7.5-325] Insulin Aspart [NovoLOG Flexpen] 14 units SQ AC-TID 07/08/18 01/17/19 Insulin Aspart [NovoLOG Flexpen] See Protocol SQ AC-TID 07/08/18 01/17/19 Insulin Glargine,Hum.rec.anlog 24 unit SQ HS 07/08/18 01/17/19 [Basaglar Kwikpen U-100] Allergies Allergy/AdvReac Type Severity Reaction Status Date / Time sulfamethoxazole AdvReac Nausea & Verified 01/17/19 07:06 [From Bactrim] Vomiting,dyspnea trimethoprim [From Bactrim] AdvReac Nausea & Verified 01/17/19 07:06 Vomiting,dyspnea Review of Systems ROS Other: All systems not noted in ROS Statement are negative. <Adriane Steiner P - Last Filed: 01/17/19 06:49> ROS Other: All systems not noted in ROS Statement are negative. <Sid De Anda - Last Filed: 01/17/19 09:09> ROS Statement: Those systems with pertinent positive or pertinent negative responses have been documented in the HPI. Past Medical History Past Medical History: Diabetes Mellitus, Hypertension, Renal Disease Additional Past Medical History / Comment(s): Stage III renal disease, neuropathy bilateral legs and feet, bilateral lower leg edema, IBS, gout, pt uses walker, dialysis fistula left arm- dialysis since July 2016, sun, , sat dialysis History of Any Multi-Drug Resistant Organisms: None Reported Past Surgical History: Appendectomy, Cardiac Ablation, Section, Cholecystectomy, Tubal Ligation Additional Past Surgical History / Comment(s): bilateral cataract removal with lens implants, C-sections, bilateral breast biopsies, graft left arm done 06-23-16 for dialysis Past Anesthesia/Blood Transfusion Reactions: Postoperative Nausea & Vomiting (PONV) Past Psychological History: No Psychological Hx Reported Smoking Status: Never smoker Past Alcohol Use History: None Reported Past Drug Use History: None Reported - Past Family History Father Family Medical History: Cancer, Diabetes Mellitus Additional Family Medical History / Comment(s): Father had prostate cancer. Mother Family Medical History: Cancer Additional Family Medical History / Comment(s): Mother had breast cancer. <Adriane Steiner - Last Filed: 01/17/19 06:49> General Exam Limitations: no limitations <Adriane Steiner - Last Filed: 01/17/19 06:49> - General Exam Comments Initial Comments: Physical Exam GENERAL: Chronically ill-appearing obese female HENT: Normocephalic, Atraumatic. EYES: PERRL, EOMI PULMONARY: Unlabored respirations. No audible rales rhonchi or wheezing was noted. CARDIOVASCULAR: There is a regular rate and rhythm without any murmurs gallops or rubs. Warm and well-perfused lower extremities DP and PT pulses are present and equal bilaterally No pulsatile mass in the abdomen ABDOMEN: Soft and nontender with normal bowel sounds. SKIN: Skin is clear with no lesions or rashes and otherwise unremarkable. : Deferred NEUROLOGIC: Patient is alert and oriented x3. Moving all extremities spontaneously MUSCULOSKELETAL: Normal extremities with adequate strength and full range of motion. No lower extremity swelling or edema. No calf tenderness. No midline spinal tenderness No bruising to back PSYCHIATRIC: Normal psychiatric evaluation. Limitations: no limitations (Adriane Steiner) Course Vital Signs 01/17/19 01/17/19 05:53 07:35 Temperature 98.8 F 98.2 F Pulse Rate 61 60 Respiratory 20 18 Rate Blood Pressure 138/69 162/78 O2 Sat by Pulse 93 L 95 Oximetry Medical Decision Making <Adriane Steiner - Last Filed: 01/17/19 06:49> - Lab Data Result diagrams: 01/17/19 06:07 01/17/19 06:07 <Sid De Anda - Last Filed: 01/17/19 09:09> - Medical Decision Making Patient was seen and evaluated history is obtained from the patient and at bedside as well as MS 63-year-old female with end-stage renal disease on dialysis who presents with atraumatic bilateral lower back pain Physical exam with no acute findings Patient receives Zofran and morphine from EMS Labs and imaging were ordered labs consistent with chronic kidney disease, there is leukocytosis, urinalysis is pending KUB x-rays no acute findings Patient care was signed out to Dr De Anda at 7:30am, UA pending at time of sign out (Adriane Steiner) - Lab Data Lab Results 01/17/19 01/17/19 01/17/19 Range/Units 06:07 06:07 08:00 WBC 15.5 H (3.8-10.6) k/uL RBC 3.76 L (3.80-5.40) m/uL Hgb 12.1 (11.4-16.0) gm/dL Hct 37.9 (34.0-46.0) % MCV 100.7 H (80.0-100.0) fL MCH 32.1 (25.0-35.0) pg MCHC 31.9 (31.0-37.0) g/dL RDW 13.7 (11.5-15.5) % Plt Count 259 (150-450) k/uL Neutrophils % 72 % Lymphocytes % 18 % Monocytes % 5 % Eosinophils % 3 % Basophils % 1 % Neutrophils # 11.1 H (1.3-7.7) k/uL Lymphocytes # 2.8 (1.0-4.8) k/uL Monocytes # 0.8 (0-1.0) k/uL Eosinophils # 0.4 (0-0.7) k/uL Basophils # 0.1 (0-0.2) k/uL Macrocytosis Slight Sodium 138 (137-145) mmol/L Potassium 4.9 (3.5-5.1) mmol/L Chloride 100 (98-107) mmol/L Carbon Dioxide 26 (22-30) mmol/L Anion Gap 12 mmol/L BUN 56 H (7-17) mg/dL Creatinine 5.52 H (0.52-1.04) mg/dL Est GFR (CKD-EPI)AfAm 9 (>60 ml/min/1.73 sqM) Est GFR (CKD-EPI)NonAf 8 (>60 ml/min/1.73 sqM) Glucose 174 H (74-99) mg/dL Calcium 8.9 (8.4-10.2) mg/dL Total Bilirubin 0.7 (0.2-1.3) mg/dL AST 21 (14-36) U/L ALT 34 (9-52) U/L Alkaline Phosphatase 155 H (38-126) U/L Total Protein 7.2 (6.3-8.2) g/dL Albumin 3.9 (3.5-5.0) g/dL Amylase 32 (30-110) U/L Lipase 24 (23-300) U/L Urine Color Yellow Urine Appearance Clear (Clear) Urine pH 6.5 (5.0-8.0) Ur Specific [place] 1.009 (1.001-1.035) Urine Protein 3+ H (Negative) Urine Glucose (UA) 1+ H (Negative) Urine Ketones Negative (Negative) Urine Blood Trace H (Negative) Urine Nitrite Negative (Negative) Urine Bilirubin Negative (Negative) Urine Urobilinogen <2.0 (<2.0) mg/dL Ur Leukocyte Esterase Negative (Negative) Urine RBC 1 (0-5) /hpf Urine WBC 1 (0-5) /hpf Ur Squamous Epith Cells 3 (0-4) /hpf Hyaline Casts 1 (0-2) /lpf Urine Mucus Rare H (None) /hpf Disposition <Adriane Steiner P - Last Filed: 01/17/19 06:49> Decision Time: 09:09 <Sid De Anda - Last Filed: 01/17/19 09:09> Clinical Impression: Acute back pain Disposition: ADMITTED IP TO THIS HOSP Condition: Fair Referrals: Piedad Ingram III, MD [Primary Care Provider] - 1-2 days
--- NOTE | 2019-01-17 07:21 | XR ---
EXAMINATION TYPE: XR KUB DATE OF EXAM: 01/17/2019 7:11 AM CLINICAL HISTORY: Abdominal and bilateral flank pain. TECHNIQUE: Two supine KUB images of the abdomen are obtained. COMPARISON: Abdominal x-ray November 29, 2016 FINDINGS: Scattered gas is seen in non-distended stomach and small bowel loops. Gas and fecal materia l is seen in non-distended colon. There are scattered pelvic phleboliths. There is moderate narrowing in both hip joints. There is slight scoliotic curvature in the thoracolumbar spine. No definitive ne phrolithiasis, evaluation however limited due to patient's body habitus. IMPRESSION: Overall nonobstructive bowel gas pattern.
[2019-01-17] MEDS ORDERED: MORPHINE SULFATE 4 MG/ML SYRINGE IVP STA (08:09)
[2019-01-17] MEDS ORDERED: LIDOCAINE 5% PATCH TOPICAL STA (08:15)
[2019-01-17 08:52] LABS: Appearance,Urine Clear (Clear); Bilirubin,Urine Negative (Negative); Blood,Urine Trace (Negative); Color,Urine Yellow; Glucose,Urine (UA) 1+ (Negative); Hyaline Casts,Urine 1 /lpf (0-2); Ketones,Urine Negative (Negative); Leukocyte Esterase,Urine Negative (Negative); Mucus,Urine Rare /hpf; Nitrite,Urine Negative (Negative); PH, Urine 6.5 (5.0-8.0); Protein,Urine 3+ (Negative); RBC,Urine 1 /hpf (0-5); Specific Gravity,Urine 1.009 (1.001-1.035); Squamous Epithelial Cell,Urine 3 /hpf (0-4); Urobilinogen,Urine <2.0 mg/dL (<2.0); WBC,Urine 1 /hpf (0-5)
[2019-01-17] MEDS ORDERED: DEXAMETHASONE SOD PHOSPHATE 10 MG/ML 1 ML VIAL IV STA (09:07)
[2019-01-17] MEDS ORDERED: NALOXONE 0.4 MG/ML 1 ML VIAL IV PRN (09:09)
[2019-01-17] MEDS ORDERED: HYDROcodone/APAP 7.5-325MG 1 EACH TAB PO PRN (09:11)
[2019-01-17] MEDS ORDERED: GABAPENTIN 300 MG CAP PO PRN (09:11)
--- NOTE | 2019-01-17 09:42 | P.NPCON ---
History of Present Illness - Reason for Consult end stage renal disease - History of Present Illness Reason for consultation: End-stage renal disease History of present illness: Patient is a 63-year-old female seen in renal consultation for end-stage renal disease. She is maintained on hemodialysis on a Sunday schedule for left upper extremity AV graft. Patient states at about 6:45 PM last night she developed some back pain for which she took now. Pain did not improve. Overnight the pain continued to worsen and she has a difficult time getting up this morning and decided to come to the hospital. She did receive morphine as well as IV steroids in the ER and is starting to feel better. She is able to move all her extremities. No fever or chills. She did have an episode of emesis last night but better now. No diarrhea. No fever or chills. Hemodynamically stable. Vital signs are stable. General: The patient appeared well nourished and normally developed. HEENT: Head exam is unremarkable. Neck is without jugular venous distension. LUNGS: Lungs are clear to auscultation and percussion. Breath sounds decreased. HEART: Rate and Rhythm are regular. First and second heart sounds normal. No murmurs, rubs or gallops. ABDOMEN: Abdominal exam reveals normal bowel sounds. Non-tender and non- distended. No evidence of peritonitis. EXTREMITITES: No clubbing, cyanosis, or edema. Past Medical History Past Medical History: Diabetes Mellitus, Hypertension, Renal Disease Additional Past Medical History / Comment(s): Stage III renal disease, neuropathy bilateral legs and feet, bilateral lower leg edema, IBS, gout, pt uses walker, dialysis fistula left arm- dialysis since July 2016, sun, , sun dialysis History of Any Multi-Drug Resistant Organisms: None Reported Past Surgical History: Appendectomy, Cardiac Ablation, Section, Cholecystectomy, Tubal Ligation Additional Past Surgical History / Comment(s): bilateral cataract removal with lens implants, C-sections, bilateral breast biopsies, graft left arm done for dialysis Past Anesthesia/Blood Transfusion Reactions: Postoperative Nausea & Vomiting (PONV) Past Psychological History: No Psychological Hx Reported Smoking Status: Never smoker Past Alcohol Use History: None Reported Past Drug Use History: None Reported - Past Family History Father Family Medical History: Cancer, Diabetes Mellitus Additional Family Medical History / Comment(s): Father had prostate cancer. Mother Family Medical History: Cancer Additional Family Medical History / Comment(s): Mother had breast cancer. Medications and Allergies Home Medications Medication Instructions Recorded Confirmed Type Carvedilol 25 mg PO BID 09/22/15 01/17/19 History Colchicine [Colcrys] 0.6 mg PO DAILY PRN 06/27/16 01/17/19 History Gabapentin [Neurontin] 300 mg PO DAILY PRN 06/27/16 01/17/19 History Aspirin [Adult Low Dose Aspirin EC] 81 mg PO DAILY 09/16/16 01/17/19 History amLODIPine [Norvasc] 10 mg PO HS 11/29/16 01/17/19 History Calcium Carb-Mag Carb-Folic 1 tab PO AC-TID 07/08/18 01/17/19 History [Magnebind 400 Rx] Furosemide [Lasix] 40 mg PO BID 07/08/18 01/17/19 History HYDROcodone/APAP 7.5-325MG [[place] 1 tab PO DAILY PRN 07/08/18 01/17/19 History 7.5-325] Insulin Aspart [NovoLOG Flexpen] 14 units SQ AC-TID 07/08/18 01/17/19 History Insulin Aspart [NovoLOG Flexpen] See Protocol SQ AC-TID 07/08/18 01/17/19 History Insulin Glargine,Hum.rec.anlog 24 unit SQ HS 07/08/18 01/17/19 History [Basaglar Kwikpen U-100] Allergies Allergy/AdvReac Type Severity Reaction Status Date / Time sulfamethoxazole AdvReac Nausea & Verified 01/17/19 07:06 [From Bactrim] Vomiting,dyspnea trimethoprim [From Bactrim] AdvReac Nausea & Verified 01/17/19 07:06 Vomiting,dyspnea Physical Exam Vitals: Vital Signs Temp Pulse Resp BP Pulse Ox 01/17/19 09:18 97.2 F L 61 18 164/75 97 01/17/19 07:35 98.2 F 60 18 162/78 95 01/17/19 05:53 98.8 F 61 20 138/69 93 L Intake and Output 01/16/19 01/17/19 01/17/19 22:59 06:59 14:59 Output Total 50 Balance -50 Output: Urine 50 Straight 50 Other: Weight 105.914 kg Results - Lab Results Most recent lab results Calcium 8.9 mg/dL (8.4-10.2) 01/17/19 06:07 01/17/19 06:07 01/17/19 06:07 Assessment and Plan Plan: Assessment: 1. End-stage renal disease maintained on hemodialysis on a Sunday schedule for left upper extremity AV graft. 2. Low back pain. Appears to be musculoskeletal in nature. 3. Insulin-dependent diabetes mellitus. 4. Hypertension with chronic kidney disease. 5. Chronic kidney disease mineral bone disease maintained on PhosLo. Plan: Hemodialysis today. Resume binders and home antihypertensives. Thank you for the consultation. I will continue to follow the patient with you during her hospital stay.
[2019-01-17 10:23] VITALS: BMI 41.3
[2019-01-17] MEDS ORDERED: COLCHICINE 0.6 MG EACH PO PRN (11:18)
[2019-01-17] MEDS: INSULIN ASPART (NovoLOG) 100 UNIT/ML VIAL SQ SCH ×4 (12:26→20:34)
[2019-01-17] MEDS: CALCIUM CARB-MAG CARB-FOLIC 1 EACH TAB PO SCH ×2 (12:28→18:10)
--- NOTE | 2019-01-17 13:34 | XR ---
EXAMINATION TYPE: XR lumbar spine 2 or 3V DATE OF EXAM: 01/17/2019 CLINICAL HISTORY: Low back pain. TECHNIQUE: Frontal and lateral images of the lumbar spine are obtained. COMPARISON: None FINDINGS: Demineralization is felt present which is noted to lower radiographic sensitivity. In reggie tion evaluation suboptimal due to patient's underlying large body habitus. There are 5 lumbar type ve rtebral bodies identified. The lumbar spine shows straightened alignment without evidence of acute f racture or dislocation. Vertebral body heights are felt within normal limits. Moderate disc space nyasia rowing with endplate sclerosis L3-L4 level is seen. Advanced disc space narrowing with advanced anter ior spurring L4-L5 level is present. Moderate disc space narrowing L5-S1 level is identified. Vascula r calcification overlying abdominal aorta is seen. IMPRESSION: As above.
[2019-01-17 16:53] LABS: Glucose,Whole Blood 243 mg/dL (75-99)
[2019-01-17] MEDS: HYDROcodone/APAP 7.5-325MG 1 EACH TAB PO PRN (18:10)
[2019-01-17] MEDS: FUROSEMIDE 40 MG TAB PO SCH (18:10)
[2019-01-17 19:34] LABS: Glucose,Whole Blood 332 mg/dL (75-99)
[2019-01-17] MEDS: CARVEDILOL 12.5 MG TAB PO SCH (20:36)
[2019-01-17] MEDS ORDERED: amLODIPine 10 MG TAB PO SCH (21:00)
[2019-01-17] MEDS ORDERED: INSULIN DETEMIR (LEVEMIR) 100 UNIT/ML SYR SQ SCH (21:00)
[2019-01-17 21:27] LABS: Glucose,Whole Blood 264 mg/dL (75-99)
[2019-01-18 07:08] LABS: Glucose,Whole Blood 262 mg/dL (75-99)
[2019-01-18 07:20] VITALS: BP 158/83; PULSE 58; RESP 14; TEMP 97.6
[2019-01-18] MEDS: CALCIUM CARB-MAG CARB-FOLIC 1 EACH TAB PO SCH ×2 (08:40→12:56)
[2019-01-18] MEDS: CARVEDILOL 12.5 MG TAB PO SCH (08:40)
[2019-01-18] MEDS: INSULIN ASPART (NovoLOG) 100 UNIT/ML VIAL SQ SCH ×4 (08:41→12:56)
[2019-01-18] MEDS: FUROSEMIDE 40 MG TAB PO SCH (08:42)
[2019-01-18] MEDS ORDERED: ASPIRIN 81 MG PO SCH (09:00)
--- NOTE | 2019-01-18 10:41 | P.PN ---
Subjective Progress Note Date: 01/18/19 Principal diagnosis: This is a 63-year-old female known to us with ESRD on dialysis Sunday. She had acute severe back pain for which was admitted through the [facility] room. KUB and spinal x-rays are normal. There is some degenerative joint disease, and some vascular calcification in the abdominal aorta is noted Pain is almost nearly resolved back to her baseline. She walks with a walker. Past medical history significant for diabetes severe neuropathy in both legs and irritable bowel syndrome. Objective - Vital Signs Vital signs: Vital Signs Temp 97.6 F 01/18/19 07:00 Pulse 58 L 01/18/19 07:00 Resp 14 01/18/19 07:00 BP 158/83 01/18/19 07:00 Pulse Ox 93 L 01/18/19 07:00 Intake & Output 01/17/19 01/18/19 01/18/19 18:59 06:59 18:59 Intake Total 240 Output Total 50 Balance 190 Intake: Oral 240 Output: Urine 50 Straight 50 Other: Voiding Method Toilet Toilet # Voids 1 0 On exam she is awake alert oriented comfortable smiling and cheerful HEENT exam no JVP neck is supple no facial asymmetry Lungs clear to auscultation good air entry bilaterally Heart sounds are unremarkable no murmur rub gallop Abdomen is soft nontender Extremity exam was no edema Neurologically awake alert oriented comfortable. - Labs CBC & Chem 7: 01/17/19 06:07 01/17/19 06:07 Labs: Abnormal Lab Results - Last 24 Hours (Table) 01/17/19 01/17/19 01/17/19 Range/Units 16:51 19:32 21:26 POC Glucose (mg/dL) 243 H 332 H 264 H (75-99) mg/dL 01/18/19 Range/Units 07:05 POC Glucose (mg/dL) 262 H (75-99) mg/dL Assessment and Plan Assessment: Impression 1. ESRD on dialysis Sunday. Stable. 2. Admitted with severe back pain resolved nearly completely with some chronic back pain. Amylase and lipase were normal at 32 and 24 respectively. 3. Severe neuropathy chronic, uses a walker to walk. 4. History of irritable bowel syndrome. 5. History of diabetes mellitus. 6. Anemia off ESRD, hemoglobin is 12.1 at target. 7. Calcium 8.9 albumin 3.9 phosphorus not available Recommendation. Patient can be discharged. Patient can receive physiotherapy as an outpatient if need be
--- NOTE | 2019-01-18 11:53 | P.CNOR ---
History of Present Illness - [facility] Consult date: 01/18/19 Requesting physician: Brittany Crouch Consult reason: low back pain History of present illness: Patient states she has a history of chronic low back pain. She has been seen in the past but not for a few years for a workup. She currently sees Dr. Arambula for pain management. She takes Williams when necessary for her pain. She states she has chronic neuropathy where she has diabetes mellitus and requires dialysis. She has been utilizing a walker at home. She has no new or acute radicular symptoms. She denies bowel or bladder changes or saddle anesthesia. Yesterday, 01/17/2019 she developed an episode of acute back pain. She denies any injury or trauma that resulted in her developing her acute back pain. The pain was severe where she could not move and required EMS transportation. She was admitted through the emergency department. She states her back pain is much improved this morning. She has not required pain medicine. She is not having any new complaints. Review of Systems All systems: negative Past Medical History Past Medical History: Diabetes Mellitus, Hypertension, Renal Disease Additional Past Medical History / Comment(s): Pt states she has recently been ill with influenza that went into bronchitis, ESRD with hemodialysis M/W/F, IDDM type II, past DKA, neuropathy bilateral feet/legs and alittle in hands, "fast heart rate"-had cardiac ablation, lymphedema bilateral lower legs/feet, gout R knee, mineral bone disease, IBS, R sided Mustafa's palsey. History of Any Multi-Drug Resistant Organisms: None Reported Past Surgical History: Appendectomy, Cardiac Ablation, Section, Cholecystectomy, Tubal Ligation Additional Past Surgical History / Comment(s): bilateral cataract removal with lens implants, C-sections, bilateral benign breast biopsies, AV graft left arm done 06-23-16 for dialysis, colonoscopy. Past Anesthesia/Blood Transfusion Reactions: Motion Sickness, Postoperative Nausea & Vomiting (PONV) Smoking Status: Never smoker - Past Family History Father Family Medical History: Cancer, Diabetes Mellitus Additional Family Medical History / Comment(s): Father had prostate cancer. Mother Family Medical History: Cancer Additional Family Medical History / Comment(s): Mother had breast cancer. Medications and Allergies Home Medications Medication Instructions Recorded Confirmed Type Carvedilol 25 mg PO BID 09/22/15 01/17/19 History Colchicine [Colcrys] 0.6 mg PO DAILY PRN 06/27/16 01/17/19 History Gabapentin [Neurontin] 300 mg PO DAILY PRN 06/27/16 01/17/19 History Aspirin [Adult Low Dose Aspirin EC] 81 mg PO DAILY 09/16/16 01/17/19 History amLODIPine [Norvasc] 10 mg PO HS 11/29/16 01/17/19 History Calcium Carb-Mag Carb-Folic 1 tab PO AC-TID 07/08/18 01/17/19 History [Magnebind 400 Rx] Furosemide [Lasix] 40 mg PO BID 07/08/18 01/17/19 History HYDROcodone/APAP 7.5-325MG [[place] 1 tab PO DAILY PRN 07/08/18 01/17/19 History 7.5-325] Insulin Aspart [NovoLOG Flexpen] 14 units SQ AC-TID 07/08/18 01/17/19 History Insulin Aspart [NovoLOG Flexpen] See Protocol SQ AC-TID 07/08/18 01/17/19 H istory Insulin Glargine,Hum.rec.anlog 24 unit SQ HS 07/08/18 01/17/19 History [Basaglar Kwikpen U-100] Cyclobenzaprine [Flexeril] 10 mg PO TID PRN #20 tab 01/18/19 Rx Allergies Allergy/AdvReac Type Severity Reaction Status Date / Time sulfamethoxazole AdvReac Nausea & Verified 01/17/19 07:06 [From Bactrim] Vomiting,dyspnea trimethoprim [From Bactrim] AdvReac Nausea & Verified 01/17/19 07:06 Vomiting,dyspnea Physical Examination Inspection of the lumbar spine is benign. There is no deformity. There are no wounds, erythema or ecchymoses. There is no step-off. It is nontender throughout the thoracolumbar spine. Lower extremities: She has weakness in both anterior tibialis and EHLs. Otherwise L2 through S1 is intact bilaterally with motor and gross sensation to light touch. There is no hyperreflexia. There is 1-2+ knee jerk and ankle jerks. There is no clonus. Downgoing toes with pink Babinski. Calves are soft and nontender. There is 2+ dorsalis pedis pulse and less than 2 second capillary refill distally. There is no true straight leg raising. Results X-rays of the lumbar spine show severe degenerative changes, spondylosis and degenerative disc disease at L4 5 and L5-S1 with there is loss of lordosis. There is also anterior spurring at these levels which appears to be causing some autofusion. There are no fractures or instability. - Labs Labs: Abnormal Lab Results - Last 24 Hours (Table) 01/17/19 01/17/19 01/17/19 Range/Units 16:51 19:32 21:26 POC Glucose (mg/dL) 243 H 332 H 264 H (75-99) mg/dL 01/18/19 Range/Units 07:05 POC Glucose (mg/dL) 262 H (75-99) mg/dL H & H 01/17/19 Range/Units 06:07 Hgb 12.1 (11.4-16.0) gm/dL Hct 37.9 (34.0-46.0) % Result Diagrams: 01/17/19 06:07 01/17/19 06:07 - Diagnostic results Lumbar AP/lateral x-ray: report reviewed, image reviewed Assessment and Plan (1) Acute back pain Narrative/Plan: The patient's lumbago is much improved this morning. She has no acute radicular symptoms. No immediate surgical intervention is warranted. I recommended follow-up with Dr. Crouch as an outpatient for further evaluation and management. Recommended continued physical therapy, restrictions and pain management. She may be discharged to home from an orthopedic standpoint. Current Visit: Yes Status: Acute Priority: Medium Code(s): M54.9 - DORSALGIA, UNSPECIFIED SNOMED Code(s): 834107627 Time with Patient: Less than 30
[2019-01-18 12:08] LABS: Glucose,Whole Blood 313 mg/dL (75-99)
[2019-01-18] MEDS: HYDROcodone/APAP 7.5-325MG 1 EACH TAB PO PRN (15:25)
--- NOTE | 2019-01-18 15:28 | P.HPIM ---
History of Present Illness H&P Date: 01/17/19 Chief Complaint: Acute exacerbation of chronic back pain 63-year-old female known to us with ESRD on dialysis Sunday. She had acute severe back pain for which was admitted through the emergency room. KUB and spinal x-rays are normal. There is some degenerative joint disease, and some vascular calcification in the abdominal aorta is noted Pain is almost nearly resolved back to her baseline. She walks with a walker. Past medical history significant for diabetes severe neuropathy in both legs and irritable bowel syndrome. Review of Systems Constitutional: Denies chills, Denies fever Eyes: denies blurred vision Ears, nose, mouth and throat: Denies epistaxis, Denies headache Cardiovascular: Denies chest pain, Denies palpitations Respiratory: Denies cough with sputum Gastrointestinal: Denies abdominal pain Musculoskeletal: Reports low back pain, Reports myalgias, Denies leg numbness/tingling Neurological: Denies confusion, Denies motor disturbance Psychiatric: Denies anxiety, Denies confusion Endocrine: Denies cold intolerance, Denies heat intolerance Hematologic/Lymphatic: Denies lymphadenopathy Past Medical History Past Medical History: Diabetes Mellitus, Hypertension, Renal Disease Additional Past Medical History / Comment(s): Pt states she has recently been ill with influenza that went into bronchitis, ESRD with hemodialysis M/W/F, IDDM type II, past DKA, neuropathy bilateral feet/legs and alittle in hands, "fast heart rate"-had cardiac ablation, lymphedema bilateral lower legs/feet, gout R knee, mineral bone disease, IBS, R sided Mustafa's palsey. History of Any Multi-Drug Resistant Organisms: None Reported Past Surgical History: Appendectomy, Cardiac Ablation, Section, Cholecystectomy, Tubal Ligation Additional Past Surgical History / Comment(s): bilateral cataract removal with lens implants, C-sections, bilateral benign breast biopsies, AV graft left arm done 06-23-16 for dialysis, colonoscopy. Past Anesthesia/Blood Transfusion Reactions: Motion Sickness, Postoperative Nausea & Vomiting (PONV) Smoking Status: Never smoker - Past Family History Father Family Medical History: Cancer, Diabetes Mellitus Additional Family Medical History / Comment(s): Father had prostate cancer. Mother Family Medical History: Cancer Additional Family Medical History / Comment(s): Mother had breast cancer. Medications and Allergies Home Medications Medication Instructions Recorded Confirmed Type Carvedilol 25 mg PO BID 09/22/15 01/17/19 History Colchicine [Colcrys] 0.6 mg PO DAILY PRN 06/27/16 01/17/19 History Gabapentin [Neurontin] 300 mg PO DAILY PRN 06/27/16 01/17/19 History Aspirin [Adult Low Dose Aspirin EC] 81 mg PO DAILY 09/16/16 01/17/19 History amLODIPine [Norvasc] 10 mg PO HS 11/29/16 01/17/19 History Calcium Carb-Mag Carb-Folic 1 tab PO AC-TID 07/08/18 01/17/19 History [Magnebind 400 Rx] Furosemide [Lasix] 40 mg PO BID 07/08/18 01/17/19 History HYDROcodone/APAP 7.5-325MG [[place] 1 tab PO DAILY PRN 07/08/18 01/17/19 History 7.5-325] Insulin Aspart [NovoLOG Flexpen] 14 units SQ AC-TID 07/08/18 01/17/19 History Insulin Aspart [NovoLOG Flexpen] See Protocol SQ AC-TID 07/08/18 01/17/19 History Insulin Glargine,Hum.rec.anlog 24 unit SQ 07/08/18 01/17/19 History [Basaglar Kwikpen U-100] Cyclobenzaprine [Flexeril] 10 mg PO TID PRN #20 tab 01/18/19 Rx Allergies Allergy/AdvReac Type Severity Reaction Status Date / Time sulfamethoxazole AdvReac Nausea & Verified 01/17/19 07:06 [From Bactrim] Vomiting,dyspnea trimethoprim [From Bactrim] AdvReac Nausea & Verified 01/17/19 07:06 Vomiting,dyspnea Physical Exam Vitals: Vital Signs Temp Pulse Pulse Resp BP BP Pulse Ox 01/17/19 10:21 97.8 F 74 17 156/81 98 01/17/19 09:18 97.2 F L 61 18 164/75 97 01/17/19 07:35 98.2 F 60 18 162/78 95 01/17/19 05:53 98.8 F 61 20 138/69 93 L Intake and Output 01/17/19 01/17/19 01/17/19 06:59 14:59 22:59 Output Total 50 Balance -50 Output: Urine 50 Straight 50 Other: Weight 105.914 kg On exam she is awake alert oriented comfortable smiling and cheerful HEENT exam no JVP neck is supple no facial asymmetry Lungs clear to auscultation good air entry bilaterally Heart sounds are unremarkable no murmur rub gallop Abdomen is soft nontender Extremity exam was no edema Neurologically awake alert oriented comfortable. Results CBC & Chem 7: 01/17/19 06:07 01/17/19 06:07 Labs: Abnormal Lab Results - Last 24 Hours (Table) 01/17/19 01/17/19 01/17/19 Range/Units 06:07 06:07 08:00 WBC 15.5 H (3.8-10.6) k/uL RBC 3.76 L (3.80-5.40) m/uL MCV 100.7 H (80.0-100.0) fL Neutrophils # 11.1 H (1.3-7.7) k/uL BUN 56 H (7-17) mg/dL Creatinine 5.52 H (0.52-1.04) mg/dL Glucose 174 H (74-99) mg/dL Alkaline Phosphatase 155 H (38-126) U/L Urine Protein 3+ H (Negative) Urine Glucose (UA) 1+ H (Negative) Urine Blood Trace H (Negative) Urine Mucus Rare H (None) /hpf Thrombosis Risk Factor Assmnt - Choose All That Apply Any of the Below Risk Factors Present?: Yes Each Factor Represents 1 point: Obesity (BMI >25) Other Risk Factors: Yes Each Risk Factor Represents 2 Points: Age 61-74 years Other congenital or acquired thrombophilia - If yes, enter type in comment: No Thrombosis Risk Factor Assessment Total Risk Factor Score: 3 Thrombosis Risk Factor Assessment Level: Moderate Risk Assessment and Plan Assessment: 1. End-stage renal disease maintained on hemodialysis on a Sunday schedule for left upper extremity AV graft. 2. Low back pain. Appears to be musculoskeletal in nature. - Orthopedic is consulted; await recommendations 3. Insulin-dependent diabetes mellitus; continue with Accu-Cheks with insulin sliding scale. 4. Hypertension with chronic kidney disease; stable on current home antihypertensive therapy. 5. Chronic kidney disease mineral bone disease maintained on PhosLo; patient is being dialyzed today. 6. DVT prophylaxis CODE STATUS; full code Plan: Hemodialysis today. Resume binders and home antihypertensives.
--- NOTE | 2019-01-18 15:40 | P.DS ---
Providers Date of admission: 01/17/19 09:10 Attending physician: Mack Martinez Consults: 01/17/19 09:03 Consult Physician Routine Consulting Provider: Ld Downey Consult Reason/Comments: needs HD Do you want consulting provider notified?: Yes 01/17/19 09:05 Consult Physician Routine Consulting Provider: Brittany Crouch Consult Reason/Comments: back pain Do you want consulting provider notified?: Yes Primary care physician: Piedad Quezada [facility] Course: 63-year-old female seen in renal consultation for end-stage renal disease. She is maintained on hemodialysis on a Sunday schedule for left upper extremity AV graft. Patient states at about 6:45 PM last night she developed some back pain for which she took now. Pain did not improve. Overnight the pain continued to worsen and she has a difficult time getting up this morning and decided to come to the hospital. She did receive morphine as well as IV steroids in the ER and is starting to feel better. She is able to move all her extremities. No fever or chills. She did have an episode of emesis last night but better now. No diarrhea. No fever or chills. Hemodynamically stable. Patient was admitted to the hospital for pain control and orthopedic evaluation; patient's symptoms resolved; orthopedic's saw patient and no further treatment or evaluation as recommended; patient did undergo dialysis was discharged home in a stable condition Patient Condition at Discharge: Fair Plan - Discharge Summary Discharge Rx Participant: No New Discharge Prescriptions: New Cyclobenzaprine [Flexeril] 10 mg PO TID PRN #20 tab PRN Reason: Spasms Continue Carvedilol 25 mg PO BID Gabapentin [Neurontin] 300 mg PO DAILY PRN PRN Reason: Pain Colchicine [Colcrys] 0.6 mg PO DAILY PRN PRN Reason: GOUT Aspirin [Adult Low Dose Aspirin EC] 81 mg PO DAILY amLODIPine [Norvasc] 10 mg PO HS Insulin Aspart [NovoLOG Flexpen] 14 units SQ AC-TID Insulin Glargine,Hum.rec.anlog [Basaglar Kwikpen U-100] 24 unit SQ HS Furosemide [Lasix] 40 mg PO BID Calcium Carb-Mag Carb-Folic [Magnebind 400] 1 tab PO AC-TID Insulin Aspart [NovoLOG Flexpen] See Protocol SQ AC-TID HYDROcodone/APAP 7.5-325MG [[place] 7.5-325] 1 tab PO DAILY PRN PRN Reason: Pain Discharge Medication List Carvedilol 25 mg PO BID 09/22/15 [History] Colchicine [Colcrys] 0.6 mg PO DAILY PRN 06/27/16 [History] Gabapentin [Neurontin] 300 mg PO DAILY PRN 06/27/16 [History] Aspirin [Adult Low Dose Aspirin EC] 81 mg PO DAILY 09/16/16 [History] amLODIPine [Norvasc] 10 mg PO HS 11/29/16 [History] Calcium Carb-Mag Carb-Folic [Magnebind 400] 1 tab PO AC-TID 07/08/18 [History] Furosemide [Lasix] 40 mg PO BID 07/08/18 [History] HYDROcodone/APAP 7.5-325MG [[place] 7.5-325] 1 tab PO DAILY PRN 07/08/18 [History] Insulin Aspart [NovoLOG Flexpen] 14 units SQ AC-TID 07/08/18 [History] Insulin Aspart [NovoLOG Flexpen] See Protocol SQ AC-TID 07/08/18 [History] Insulin Glargine,Hum.rec.anlog [Basaglar Kwikpen U-100] 24 unit SQ HS 07/08/18 [History] Cyclobenzaprine [Flexeril] 10 mg PO TID PRN #20 tab 01/18/19 [Rx] Follow up Appointment(s)/Referral(s): Brittany Crouch DO [Doctor of Osteopathic Medicine] - 1 Week Piedad Ingram III, MD [Primary Care Provider] - 1-2 days Activity/Diet/Wound Care/Special Instructions: Take meds as directed No bending, lifting or twisting Follow-up with Dr. Crouch as an outpatient Discharge Disposition: HOME SELF-CARE
== END 2019-01-18 15:35 | disposition home or self-care (01) ==
LOC: EC 05:48 → 4SSUR 09:10
PROVIDERS: ADMIT Internal Medicine; ATTEND Internal Medicine
DX: G89.29 Other chronic pain (principal); M54.5 Low back pain; I12.0 Hypertensive chronic kidney disease with stage 5 chronic kidney disease or end stage renal disease; E11.22 Type 2 diabetes mellitus with diabetic chronic kidney disease; N18.6 End stage renal disease; E11.40 Type 2 diabetes mellitus with diabetic neuropathy, unspecified; M89.8X9 Other specified disorders of bone, unspecified site; Z99.2 Dependence on renal dialysis; M10.9 Gout, unspecified; G51.0 Bell's palsy; I89.0 Lymphedema, not elsewhere classified; D64.9 Anemia, unspecified; E66.9 Obesity, unspecified; Z68.41 Body mass index [BMI] 40.0-44.9, adult; M19.90 Unspecified osteoarthritis, unspecified site; Z87.09 Personal history of other diseases of the respiratory system; Z79.899 Other long term (current) drug therapy; Z79.82 Long term (current) use of aspirin; Z79.4 Long term (current) use of insulin; Z88.2 Allergy status to sulfonamides; Z80.42 Family history of malignant neoplasm of prostate; Z80.3 Family history of malignant neoplasm of breast
CPT/HCPCS: 90970; 96374; 96375; 99285; 36415; 80053; 82150; 83690; 85025; 81001; 72100; 74018; G0378 ×2; G0257; J2270; J1100; 90935

== ENCOUNTER 2019-04-15 12:25 | Inpatient (IN) | payer MEDICARE, BC ==
[2019-04-15] MEDS ORDERED: ALBUTEROL NEBULIZED 2.5 MG/3 ML INHALATION STA (12:29)
[2019-04-15] MEDS ORDERED: CALCIUM GLUCONATE 1 GM in SODIUM CHLORIDE 0.9% 100 ML IVPB ONE (12:32)
[2019-04-15] MEDS ORDERED: FUROSEMIDE 10 MG/ML 4 ML VIAL IV STA (12:35)
[2019-04-15] MEDS ORDERED: ATROPINE SULFATE 0.1 MG/ML 10ML SYRINGE IV STA (12:56)
--- NOTE | 2019-04-15 13:02 | ED ---
Arrhythmia/Palpitations HPI - General Stated Complaint: Bradycardia Time Seen by Provider: 04/15/19 12:26 Source: patient, EMS, RN notes reviewed, old records reviewed Mode of arrival: EMS Limitations: no limitations - History of Present Illness Initial Comments: This is a 63-year-old female history of renal failure with dialysis who does still make some urine was brought in from dialysis due to a bradycardic heart rate. Patient denies any chest pain or shortness of breath she did have a blood pressure 120/70 a glucose of 270. He normally is a Sunday dial ysis she missed yesterday due to inability to access the dialysis port this was corrected she was go back today to have it done she has now been 4 days past her last dialysis. She later admitted that she has some chest tightness along with it. Upon arrival here she states she felt somewhat diaphoretic. - Related Data Home Medications Medication Instructions Recorded Confirmed Carvedilol 25 mg PO BID 09/22/15 04/15/19 Colchicine [Colcrys] 0.6 mg PO DAILY PRN 06/27/16 04/15/19 Gabapentin [Neurontin] 300 mg PO DAILY PRN 06/27/16 04/15/19 Aspirin [Adult Low Dose Aspirin EC] 81 mg PO DAILY 09/16/16 04/15/19 amLODIPine [Norvasc] 10 mg PO HS 11/29/16 04/15/19 Calcium Carb-Mag Carb-Folic 1 tab PO AC-TID 07/08/18 04/15/19 [Magnebind 400] HYDROcodone/APAP 7.5-325MG [[place] 1 tab PO DAILY PRN 07/08/18 04/15/19 7.5-325] Insulin Aspart [NovoLOG Flexpen] 14 units SQ AC-TID 07/08/18 04/15/19 Insulin Aspart [NovoLOG Flexpen] See Protocol SQ AC-TID 07/08/18 04/15/19 Insulin Glargine,Hum.rec.anlog 24 unit SQ HS 07/08/18 04/15/19 [Basaglar Kwikpen U-100] Furosemide [Lasix] 80 mg PO BID 04/15/19 04/15/19 Previous Rx's Medication Instructions Recorded Cyclobenzaprine [Flexeril] 10 mg PO TID PRN #20 tab 01/18/19 Allergies Allergy/AdvReac Type Severity Reaction Status Date / Time sulfamethoxazole AdvReac Nausea & Verified 04/15/19 13:03 [From Bactrim] Vomiting,dyspnea trimethoprim [From Bactrim] AdvReac Nausea & Verified 04/15/19 13:03 Vomiting,dyspnea Review of Systems ROS Statement: Those systems with pertinent positive or pertinent negative responses have been documented in the HPI. ROS Other: All systems not noted in ROS Statement are negative. Past Medical History Past Medical History: Diabetes Mellitus, Hypertension, Renal Disease Additional Past Medical History / Comment(s): Pt states she has recently been ill with influenza that went into bronchitis, ESRD with hemodialysis M/W/F, IDDM type II, past DKA, neuropathy bilateral feet/legs and alittle in hands, "fast heart rate"-had cardiac ablation, lymphedema bilateral lower legs/feet, gout R knee, mineral bone disease, IBS, R sided Mustafa's palsey. History of Any Multi-Drug Resistant Organisms: None Reported Past Surgical History: Appendectomy, Cardiac Ablation, Section, Cholecystectomy, Tubal Ligation Additional Past Surgical History / Comment(s): bilateral cataract removal with lens implants, C-sections, bilateral benign breast biopsies, AV graft left arm done 06-23-16 for dialysis, colonoscopy. Past Anesthesia/Blood Transfusion Reactions: Motion Sickness, Postoperative Nausea & Vomiting (PONV) Past Psychological History: No Psychological Hx Reported Smoking Status: Never smoker - Past Family History Father Family Medical History: Cancer, Diabetes Mellitus Additional Family Medical History / Comment(s): Father had prostate cancer. Mother Family Medical History: Cancer Additional Family Medical History / Comment(s): Mother had breast cancer. General Exam - General Exam Comments Initial Comments: This is a well-developed well-nourished awake alert oriented 3 female Limitations: no limitations General appearance: alert, in no apparent distress Head exam: Present: atraumatic, normocephalic, normal inspection Eye exam: Present: normal appearance, PERRL, EOMI. Absent: scleral icterus, conjunctival injection, periorbital swelling ENT exam: Present: normal exam, mucous membranes moist Neck exam: Present: normal inspection. Absent: tenderness, meningismus, lymphadenopathy Respiratory exam: Present: normal lung sounds bilaterally. Absent: respiratory distress, wheezes, rales, rhonchi, stridor Cardiovascular Exam: Present: bradycardia. Absent: systolic murmur, diastolic murmur, rubs, gallop, clicks GI/Abdominal exam: Present: soft, normal bowel sounds. Absent: distended, tenderness, guarding, rebound, rigid Extremities exam: Present: normal inspection, full ROM, normal capillary refill. Absent: tenderness, pedal edema, joint swelling, calf tenderness Back exam: Present: normal inspection Neurological exam: Present: alert, oriented X3, CN II-XII intact Psychiatric exam: Present: normal affect, normal mood Skin exam: Present: warm, intact, normal color, diaphoretic. Absent: rash Course Vital Signs 04/15/19 04/15/19 04/15/19 12:30 12:41 12:47 Temperature Pulse Rate 38 L 40 L Pulse Rate [ 40 L Window Glass Cutter Off ] Respiratory 16 16 Rate Blood Pressure 101/57 101/57 O2 Sat by Pulse 93 L Oximetry 04/15/19 04/15/19 04/15/19 13:00 13:30 13:51 Temperature Pulse Rate 43 L 43 L 40 L Pulse Rate [ Window Glass Cutter Off ] Respiratory 22 16 Rate Blood Pressure 125/62 152/79 O2 Sat by Pulse 96 Oximetry 04/15/19 04/15/19 04/15/19 13:59 14:00 14:11 Temperature Pulse Rate 42 L 40 L 42 L Pulse Rate [ Window Glass Cutter Off ] Respiratory 13 18 Rate Blood Pressure 125/77 125/64 O2 Sat by Pulse 100 99 Oximetry 04/15/19 04/15/19 04/15/19 14:30 15:00 15:34 Temperature 96.6 F L Pulse Rate 37 L 38 L 38 L Pulse Rate [ Window Glass Cutter Off ] Respiratory 14 15 Rate Blood Pressure 121/78 120/59 O2 Sat by Pulse Oximetry - Reevaluation(s) Reevaluation #1: 04/15/19 13:01 The initial concern was for hyperkalemia patient was started on treatment for this presumed entity. Pacer pads were also placed. She has lesser maintain her blood pressure. Reevaluation #2: 04/15/19 15:53 I did discuss the findings with patient and family and several occasions patient did have one episode of the. Be vasovagal in nature she otherwise remained in a blood pressure 120-130 systolic. She does have evidence of hyperkalemia she was treated for hyperkalemia. Undergone D was consulted who did come the emergency department see the patient did discuss case also with Dr. Ricardo Oliver EKG Findings - EKG Results: EKG: interpreted by ERMD (Third-degree heart block grades 37 QRS 96 QT since QTC 632/496 nonspecific configuration) Medical Decision Making - Medical Decision Making Patient was reevaluated on multiple occasions including several discussed with the patient family members. - Lab Data Result diagrams: 04/15/19 12:45 04/15/19 12:45 Lab Results 04/15/19 04/15/19 04/15/19 Range/Units 12:45 12:45 12:45 WBC 7.8 (3.8-10.6) k/uL RBC 3.39 L (3.80-5.40) m/uL Hgb 10.6 L (11.4-16.0) gm/dL Hct 34.3 (34.0-46.0) % MCV 101.4 H (80.0-100.0) fL MCH 31.4 (25.0-35.0) pg MCHC 30.9 L (31.0-37.0) g/dL RDW 14.9 (11.5-15.5) % Plt Count 313 (150-450) k/uL Neutrophils % 64 % Lymphocytes % 26 % Monocytes % 5 % Eosinophils % 2 % Basophils % 1 % Neutrophils # 5.0 (1.3-7.7) k/uL Lymphocytes # 2.0 (1.0-4.8) k/uL Monocytes # 0.4 (0-1.0) k/uL Eosinophils # 0.2 (0-0.7) k/uL Basophils # 0.0 (0-0.2) k/uL Hypochromasia Slight Macrocytosis Slight PT (9.0-12.0) sec INR (<1.2) APTT (22.0-30.0) sec Sodium 133 L (137-145) mmol/L Potassium 7.2 H* (3.5-5.1) mmol/L Chloride 97 L (98-107) mmol/L Carbon Dioxide 23 (22-30) mmol/L Anion Gap 13 mmol/L BUN 57 H (7-17) mg/dL Creatinine 8.44 H* (0.52-1.04) mg/dL Est GFR (CKD-EPI)AfAm 5 (>60 ml/min/1.73 sqM) Est GFR (CKD-EPI)NonAf 5 (>60 ml/min/1.73 sqM) Glucose 322 H (74-99) mg/dL POC Glucose (mg/dL) (75-99) mg/dL POC Glu Promotional Representative ID Calcium 8.5 (8.4-10.2) mg/dL Magnesium 3.2 H (1.6-2.3) mg/dL Total Bilirubin 0.5 (0.2-1.3) mg/dL AST 35 (14-36) U/L ALT 29 (9-52) U/L Alkaline Phosphatase 151 H (38-126) U/L CK-MB (CK-2) 1.4 (0.0-2.4) ng/mL Troponin I <0.012 (0.000-0.034) ng/mL Total Protein 7.6 (6.3-8.2) g/dL Albumin 3.9 (3.5-5.0) g/dL 04/15/19 04/15/19 Range/Units 12:45 13:42 WBC (3.8-10.6) k/uL RBC (3.80-5.40) m/uL Hgb (11.4-16.0) gm/dL Hct (34.0-46.0) % MCV (80.0-100.0) fL MCH (25.0-35.0) pg MCHC (31.0-37.0) g/dL RDW (11.5-15.5) % Plt Count (150-450) k/uL Neutrophils % % Lymphocytes % % Monocytes % % Eosinophils % % Basophils % % Neutrophils # (1.3-7.7) k/uL Lymphocytes # (1.0-4.8) k/uL Monocytes # (0-1.0) k/uL Eosinophils # (0-0.7) k/uL Basophils # (0-0.2) k/uL Hypochromasia Macrocytosis PT 9.9 (9.0-12.0) sec INR 0.9 (<1.2) APTT 22.2 (22.0-30.0) sec Sodium (137-145) mmol/L Potassium (3.5-5.1) mmol/L Chloride (98-107) mmol/L Carbon Dioxide (22-30) mmol/L Anion Gap mmol/L BUN (7-17) mg/dL Creatinine (0.52-1.04) mg/dL Est GFR (CKD-EPI)AfAm (>60 ml/min/1.73 sqM) Est GFR (CKD-EPI)NonAf (>60 ml/min/1.73 sqM) Glucose (74-99) mg/dL POC Glucose (mg/dL) 319 H (75-99) mg/dL POC Glu Promotional Representative ID Clif Solano Calcium (8.4-10.2) mg/dL Magnesium (1.6-2.3) mg/dL Total Bilirubin (0.2-1.3) mg/dL AST (14-36) U/L ALT (9-52) U/L Alkaline Phosphatase (38-126) U/L CK-MB (CK-2) (0.0-2.4) ng/mL Troponin I (0.000-0.034) ng/mL Total Protein (6.3-8.2) g/dL Albumin (3.5-5.0) g/dL - Radiology Data Radiology results: report reviewed, image reviewed (Increased interstitial markings consistent with failure) Critical Care Time Critical Care Time: Yes Critical Care Time: 49 minutes of critical care time which includes initial presentation with history physical labs x-rays multiple re-evaluations patient response to therapy discussed with paramedics any breath patient review of old charting admission orders and documentation of the above Disposition Clinical Impression: Acute hyperkalemia, Third degree heart block, Chronic renal failure syndrome, Vasovagal episode Disposition: ADMITTED IP TO THIS [facility] Condition: Serious Referrals: Piedad Ingram III, MD [Primary Care Provider] - 1-2 days
[2019-04-15 13:14] LABS: Basophils % (A) 1 %; Eosinophils # (A) 0.2 k/uL (0-0.7); Eosinophils % (A) 2 %; HCT 34.3 % (34.0-46.0); HGB 10.6 gm/dL (11.4-16.0); Hypochromasia Slight; Lymphocytes % (A) 26 %; MCH 31.4 pg (25.0-35.0); MCHC 30.9 g/dL (31.0-37.0); MCV 101.4 fL (80.0-100.0); Macrocytosis Slight; Mean Platelet Volume 8.1; Monocytes # (A) 0.4 k/uL (0-1.0); Monocytes % (A) 5 %; Neutrophils % (A) 64 %; Platelet Count 313 k/uL (150-450); RBC 3.39 m/uL (3.80-5.40); RDW 14.9 % (11.5-15.5); WBC 7.8 k/uL (3.8-10.6)
[2019-04-15 13:17] LABS: Calcium 8.5 mg/dL (8.4-10.2)
[2019-04-15 13:19] LABS: INR 0.9 (<1.2); Partial Thromboplastin Time 22.2 sec (22.0-30.0); Prothrombin Time 9.9 sec (9.0-12.0)
[2019-04-15] MEDS ORDERED: ONDANSETRON 4 MG/2 ML VIAL IVP STA (13:20)
[2019-04-15] MEDS ORDERED: DEXTROSE 50% SYRINGE 50 ML IVP STA (13:21)
--- NOTE | 2019-04-15 13:27 | XR ---
EXAMINATION TYPE: XR chest 2V DATE OF EXAM: 04/15/2019 COMPARISON: Chest x-ray January 14, 2019 HISTORY: Shortness of breath and bradycardia. TECHNIQUE: Frontal and lateral views of the chest are obtained. FINDINGS: There is chronic parenchymal change without suspicious focal air space opacity, pleural ef fusion, or pneumothorax seen. Mild interstitial edema still present. The cardiac silhouette size is enlarged with atherosclerotic change in aortic knob. The osseous structures are intact. IMPRESSION: Correlate for CHF exacerbation as there is slightly more prominent cardiomegaly with lam pected mild interstitial edema bilaterally.
[2019-04-15] MEDS ORDERED: INSULIN REGULAR 100 UNIT/ML VIAL IV ONE ×2 (13:30→13:49)
[2019-04-15 13:38] LABS: Albumin 3.9 g/dL (3.5-5.0); Magnesium 3.2 mg/dL (1.6-2.3); Total Bilirubin 0.5 mg/dL (0.2-1.3); Total Protein 7.6 g/dL (6.3-8.2)
[2019-04-15 13:39] LABS: Creatine Kinase MB 1.4 ng/mL (0.0-2.4); Troponin I <0.012 ng/mL (0.000-0.034)
[2019-04-15 13:44] LABS: Glucose,Whole Blood 319 mg/dL (75-99)
[2019-04-15 13:47] LABS: Potassium 7.2 mmol/L (3.5-5.1)
--- NOTE | 2019-04-15 15:11 | P.NPCON ---
History of Present Illness - Reason for Consult end stage renal disease - History of Present Illness Reason for consultation: End-stage renal disease History of present illness: Patient is a 63-year-old female seen in renal consultation for end-stage renal disease. Patient was evaluated in the emergency room. She is maintained on hemodialysis on a Sunday schedule via left upper extremity AV graft. Her last hemodialysis was on Sunday. Patient states she did go for her treatment yesterday but the nurses could not cannulate her access. Patient was seen by vascular surgery this morning and apparently underwent an angioplasty. She was scheduled to undergo hemodialysis today at her outpatient center but felt more short of breath and also lightheaded. When she came to the hospital her potassium level was 7.2. Blood sugars are also high at 320. Blood pressures controlled. However the patient is quite bradycardic with heart rate in the low 40s. Currently denies any active chest pain or shortness of breath. She is quite edematous. No vomiting or diarrhea. No fever or chills. Patient received IV calcium along with IV insulin, nebulized albuterol in the ER. She also got a dose of IV Lasix. Vital signs are stable. General: The patient appeared well nourished and normally developed. HEENT: Head exam is unremarkable. Neck is without jugular venous distension. LUNGS: Lungs are clear to auscultation and percussion. Breath sounds decreased. HEART: Bradycardic. No murmurs or gallops. ABDOMEN: Abdominal exam reveals normal bowel sounds. Non-tender and non-distend ed. No evidence of peritonitis. EXTREMITITES: 2+ edema. Patient has chronic lymphedema. Past Medical History Past Medical History: Diabetes Mellitus, Hypertension, Renal Disease Additional Past Medical History / Comment(s): Pt states she has recently been ill with influenza that went into bronchitis, ESRD with hemodialysis M/W/F, IDDM type II, past DKA, neuropathy bilateral feet/legs and alittle in hands, "fast heart rate"-had cardiac ablation, lymphedema bilateral lower legs/feet, gout R knee, mineral bone disease, IBS, R sided Mustafa's palsey. History of Any Multi-Drug Resistant Organisms: None Reported Past Surgical History: Appendectomy, Cardiac Ablation, Section, Cholecystectomy, Tubal Ligation Additional Past Surgical History / Comment(s): bilateral cataract removal with lens implants, C-sections, bilateral benign breast biopsies, AV graft left arm done 06-23-16 for dialysis, colonoscopy. Past Anesthesia/Blood Transfusion Reactions: Motion Sickness, Postoperative Nausea & Vomiting (PONV) Past Psychological History: No Psychological Hx Reported Smoking Status: Never smoker - Past Family History Father Family Medical History: Cancer, Diabetes Mellitus Additional Family Medical History / Comment(s): Father had prostate cancer. Mother Family Medical History: Cancer Additional Family Medical History / Comment(s): Mother had breast cancer. Medications and Allergies Home Medications Medication Instructions Recorded Confirmed Type Carvedilol 25 mg PO BID 09/22/15 04/15/19 History Colchicine [Colcrys] 0.6 mg PO DAILY PRN 06/27/16 04/15/19 History Gabapentin [Neurontin] 300 mg PO DAILY PRN 06/27/16 04/15/19 History Aspirin [Adult Low Dose Aspirin EC] 81 mg PO DAILY 09/16/16 04/15/19 History amLODIPine [Norvasc] 10 mg PO HS 11/29/16 04/15/19 History Calcium Carb-Mag Carb-Folic 1 tab PO AC-TID 07/08/18 04/15/19 History [Magnebind 400] HYDROcodone/APAP 7.5-325MG [[place] 1 tab PO DAILY PRN 07/08/18 04/15/19 History 7.5-325] Insulin Aspart [NovoLOG Flexpen] 14 units SQ AC-TID 07/08/18 04/15/19 History Insulin Aspart [NovoLOG Flexpen] See Protocol SQ AC-TID 07/08/18 04/15/19 History Insulin Glargine,Hum.rec.anlog 24 unit SQ HS 07/08/18 04/15/19 History [Basaglar Kwikpen U-100] Cyclobenzaprine [Flexeril] 10 mg PO TID PRN #20 tab 01/18/19 04/15/19 Rx Furosemide [Lasix] 80 mg PO BID 04/15/19 04/15/19 History Allergies Allergy/AdvReac Type Severity Reaction Status Date / Time sulfamethoxazole AdvReac Nausea & Verified 04/15/19 13:03 [From Bactrim] Vomiting,dyspnea trimethoprim [From Bactrim] AdvReac Nausea & Verified 04/15/19 13:03 Vomiting,dyspnea Physical Exam Vitals: Vital Signs Pulse Pulse Resp BP Pulse Ox 04/15/19 14:11 42 L 18 125/64 99 04/15/19 13:59 42 L 04/15/19 13:51 40 L 04/15/19 12:47 40 L 04/15/19 12:41 40 L 16 101/57 93 L Intake and Output 04/15/19 04/15/19 04/15/19 06:59 14:59 22:59 Other: Weight 99.79 kg Results - Lab Results Most recent lab results Calcium 8.5 mg/dL (8.4-10.2) 04/15/19 12:45 Magnesium 3.2 mg/dL (1.6-2.3) H 04/15/19 12:45 04/15/19 12:45 04/15/19 12:45 Assessment and Plan Plan: Assessment: 1. End-stage renal disease maintained on hemodialysis on Sunday schedule via left upper extremity AV graft. 2. Hyperkalemia secondary to missed dialysis treatment. Patient received IV calcium along with IV insulin and nebulized albuterol in the ER. 3. Insulin-dependent diabetes mellitus. 4. Hyponatremia secondary to chronic kidney disease. 5. Anemia of chronic kidney disease. Hemoglobin at goal. 6. Bradycardia secondary to hyperkalemia. Patient is also on Coreg outpatient. 7. Chronic kidney disease mineral bone disease maintained on Magnebind. 8. Hypertension with chronic kidney disease. Controlled. 9. Volume overload. Plan: Hemodialysis today using low potassium bath with goal 3-4 L ultrafiltration. Another treatment tomorrow per her outpatient schedule. Resume phosphate binders with meals. Add Lasix 80 mg IV twice daily. Tight blood sugar control. Thank you for the consultation. I will continue to follow the patient with you during her hospital stay.
[2019-04-15] MEDS ORDERED: ALBUTEROL NEB (CONC) 2.5 MG/0.5 ML INHALATION ONE (15:22)
[2019-04-15] MEDS ORDERED: NALOXONE 0.4 MG/ML 1 ML VIAL IV PRN (15:56)
[2019-04-15] MEDS ORDERED: CYCLOBENZAPRINE 10 MG TAB PO PRN (15:58)
[2019-04-15] MEDS ORDERED: GABAPENTIN 300 MG CAP PO PRN (15:58)
[2019-04-15] MEDS ORDERED: HYDROcodone/APAP 7.5-325MG 1 EACH TAB PO PRN (15:58)
[2019-04-15] MEDS ORDERED: COLCHICINE 0.6 MG EACH PO PRN (15:58)
[2019-04-15] MEDS ORDERED: SODIUM CHLORIDE 0.9% 1,000 ML IV SCH (16:00)
[2019-04-15 16:41] LABS: Glucose,Whole Blood 291 mg/dL (75-99)
--- NOTE | 2019-04-15 17:38 | P.CNPUL ---
History of Present Illness Consult date: 04/15/19 Reason for consult: dyspnea, other (profound bradycardia and hyperkalemia.) Chief complaint: shortness of breath and lightheadedness History of present illness: this is a 63-year-old female with history of end-stage renal disease, patient is normally on hemodialysis on Mondays 1 days and Fridays, her hemodialysis is us ually done via left upper lobe extremity AV graft. On Sunday, the patient went for hemodialysis, however the nurses could not access her AV graft. And the patient was seen this morning at [facility] by vascular surgery, and she underwent angioplasty. Patient was scheduled to undergo hemodialysis today on outpatient basis, however before she went for dialysis, patient was feeling lightheaded and generally weak. He came into the ER, and she was found to have a potassium of 7.2. She was also found to have profound bradycardia rate in the low 40s, patient was also noted to be edematous, and a blood sugar was 320. Patient received IV calcium along with insulin and she also received nebulized albuterol in the ER. IV Lasix was given. Then the patient was transferred to the ICU, and I was asked to see her on consultation. During my evaluation, the hemodialysis nurse was already dialyzing the patient. And the plan is to remove 2 L of fluids. Chest x-ray did show evidence of pulmonary edema. Review of Systems constitutional: Weakness fatigue no energy. No weight loss. No fever no chills. HEENT: No headache, no sore throat, no earache. Pulmonary: Some shortness of breath no cough no wheezing no fever no chills no hemoptysis no chest pain. Cardiac denies chest pain, but she feels lightheaded. Feels like she was going to pass out. No diaphoresis. Pulmonary: Some shortness of breath, minimal dry cough, no wheezing, no hemoptysis. GI: No nausea no vomiting no abdominal pain no melena no hematemesis Genitourinary: No dysuria frequency urgency or hematuria. Neurologic: Lightheadedness but no headache no blurred vision no diplopia. Psychiatric: Denies any symptoms of active depression Endocrine denies any symptoms of heat or cold intolerance. Hematologic: Denies any clotting bleeding or bruising. Past Medical History Past Medical History: Diabetes Mellitus, Hypertension, Renal Disease Additional Past Medical History / Comment(s): Pt states she has recently been ill with influenza that went into bronchitis, ESRD with hemodialysis M/W/F, IDDM type II, past DKA, neuropathy bilateral feet/legs and alittle in hands, "fast heart rate"-had cardiac ablation, lymphedema bilateral lower legs/feet, gout R knee, mineral bone disease, IBS, R sided Mustafa's palsey. History of Any Multi-Drug Resistant Organisms: None Reported Past Surgical History: Appendectomy, Cardiac Ablation, Section, Cholecystectomy, Tubal Ligation Additional Past Surgical History / Comment(s): bilateral cataract removal with lens implants, C-sections, bilateral benign breast biopsies, AV graft left arm done 06-23-16 for dialysis, colonoscopy. Past Anesthesia/Blood Transfusion Reactions: Motion Sickness, Postoperative Nausea & Vomiting (PONV) Past Psychological History: No Psychological Hx Reported Smoking Status: Never smoker - Past Family History Father Family Medical History: Cancer, Diabetes Mellitus Additional Family Medical History / Comment(s): Father had prostate cancer. Mother Family Medical History: Cancer Additional Family Medical History / Comment(s): Mother had breast cancer. Medications and Allergies Home Medications Medication Instructions Recorded Confirmed Type Carvedilol 25 mg PO BID 09/22/15 04/15/19 History Colchicine [Colcrys] 0.6 mg PO DAILY PRN 06/27/16 04/15/19 History Gabapentin [Neurontin] 300 mg PO DAILY PRN 06/27/16 04/15/19 History Aspirin [Adult Low Dose Aspirin EC] 81 mg PO DAILY 09/16/16 04/15/19 History amLODIPine [Norvasc] 10 mg PO HS 11/29/16 04/15/19 History Calcium Carb-Mag Carb-Folic 1 tab PO AC-TID 07/08/18 04/15/19 History [Magnebind 400] HYDROcodone/APAP 7.5-325MG [[place] 1 tab PO DAILY PRN 07/08/18 04/15/19 History 7.5-325] Insulin Aspart [NovoLOG Flexpen] 14 units SQ AC-TID 07/08/18 04/15/19 History Insulin Aspart [NovoLOG Flexpen] See Protocol SQ AC-TID 07/08/18 04/15/19 History Insulin Glargine,Hum.rec.anlog 24 unit SQ HS 07/08/18 04/15/19 History [Vin Rollins U-100] Cyclobenzaprine [Flexeril] 10 mg PO TID PRN #20 tab 01/18/19 04/15/19 Rx Furosemide [Lasix] 80 mg PO BID 04/15/19 04/15/19 History Allergies Allergy/AdvReac Type Severity Reaction Status Date / Time sulfamethoxazole AdvReac Nausea & Verified 04/15/19 13:03 [From Bactrim] Vomiting,dyspnea trimethoprim [From Bactrim] AdvReac Nausea & Verified 04/15/19 13:03 Vomiting,dyspnea Physical Exam Vitals: Vital Signs Temp Pulse Pulse Resp BP Pulse Ox 04/15/19 17:15 44 L 14 135/62 97 04/15/19 17:00 41 L 18 118/81 94 L 04/15/19 16:45 41 L 17 110/68 92 L 04/15/19 16:32 97.7 F 42 L 18 120/85 95 04/15/19 16:15 43 L 22 123/60 63 L 04/15/19 16:13 41 L 04/15/19 16:10 42 L 20 123/60 100 04/15/19 16:05 37 L 20 123/60 100 04/15/19 16:00 38 L 13 133/60 04/15/19 15:55 37 L 13 133/60 100 04/15/19 15:53 38 L 04/15/19 15:50 38 L 9 L 133/60 100 04/15/19 15:45 39 L 15 119/85 100 04/15/19 15:40 39 L 14 119/85 100 04/15/19 15:35 40 L 12 119/85 100 04/15/19 15:34 38 L 04/15/19 15:30 40 L 13 115/75 04/15/19 15:25 36 L 12 115/75 99 04/15/19 15:20 36 L 17 115/75 99 04/15/19 15:15 40 L 13 117/63 04/15/19 15:00 96.6 F L 38 L 15 120/59 04/15/19 14:30 37 L 14 121/78 04/15/19 14:11 42 L 18 125/64 99 04/15/19 14:00 40 L 13 125/77 100 04/15/19 13:59 42 L 06/18/19 13:51 40 L 04/15/19 13:30 43 L 16 152/79 96 04/15/19 13:00 43 L 22 125/62 04/15/19 12:47 40 L 04/15/19 12:41 40 L 16 101/57 93 L 04/15/19 12:30 38 L 16 101/57 Intake and Output 04/15/19 04/15/19 04/15/19 06:59 14:59 22:59 Intake Total 0 Output Total 0 Balance 0 Intake: IV 0 Sodium Chloride 0.9% 1, 0 000 ml @ 20 mls/hr IV . Q24H [facility] Rx#:[id number] Output: Urine 0 Other: Weight 99.79 kg General appearance: alert, in no apparent distress Head exam: atraumatic, normocephalic, Eye exam: PERRL, EOMI. Absent: scleral icterus, conjunctival injection, periorbital swelling ENT exam: mucous membranes moist, throat is clear. Neck exam: no tenderness, meningismus, lymphadenopathy Respiratory exam: minimal fine crackles at the bases no rhonchi and no wheezes. Cardiovascular Exam: bradycardia. distant S1 and S2, no S3 gallop GI/Abdominal exam: soft, normal bowel sounds. Absent: distended, tenderness, guarding, rebound, rigid Extremities exam: full ROM, normal capillary refill. Absent: tenderness,1+ pedal edema, joint swelling, calf tenderness, Neurological exam: Present: alert, oriented X3, CN II-XII intact Psychiatric exam: Present: normal affect, normal mood Skin exam: Present: minimal areas of cellulitis noted above the ankle anterior aspect of the left lower extremity.slightly warm to touch. Results - Laboratory Findings CBC and BMP: 04/15/19 12:45 04/15/19 12:45 PT/INR, D-dimer PT 9.9 sec (9.0-12.0) 04/15/19 12:45 INR 0.9 (<1.2) 04/15/19 12:45 Abnormal lab findings: Abnormal Labs 04/15/19 04/15/19 04/15/19 12:45 12:45 13:42 RBC 3.39 L Hgb 10.6 L MCV 101.4 H MCHC 30.9 L Sodium 133 L Potassium 7.2 H* Chloride 97 L BUN 57 H Creatinine 8.44 H* Glucose 322 H POC Glucose (mg/dL) 319 H Magnesium 3.2 H Alkaline Phosphatase 151 H 04/15/19 16:37 RBC Hgb MCV MCHC Sodium Potassium Chloride BUN Creatinine Glucose POC Glucose (mg/dL) 291 H Magnesium Alkaline Phosphatase - Diagnostic Findings Chest x-ray: image reviewed (correlate for congestive heart failure and interstitial edema.) Assessment and Plan Assessment: impression: 1 acute hyperkalemia and profound bradycardia secondary to hyperkalemia secondary to chronic kidney disease and missed dialysis. 2 end stage renal disease, on hemodialysis. 3 insulin-dependent diabetes 4 electrolytes imbalance secondary to chronic kidney disease 5 anemia of chronic kidney disease 6 hypertension and history of nephrosclerosis 7 fluid overload secondary to renal failure./Chronic/end-stage renal disease. 8 history of neuropathy secondary to diabetes 9 history of cardiac ablation 10 suspect limited area of cellulitis in the left lower extremity hence the patient will be placed on. Patient Was Already on Keflex for the Last 2 Days on Outpatient Basis. 11 History of Irritable Bowel Syndrome Presently Asymptomatic Recommendation: Agree with the Present Treatment Plan, Patient Will Be Monitored in the ICU, She is already being dialyzed, and I expect the patient to improve significantly postdialysis, will monitor overnight in the ICU. Will follow. Started on For Cellulitis of the Lower Extremity. Time with Patient: Greater than 30
[2019-04-15 17:55] LABS: Glucose,Whole Blood 202 mg/dL (75-99)
[2019-04-15] MEDS: CARVEDILOL 12.5 MG TAB PO SCH (18:10)
[2019-04-15] MEDS: INSULIN ASPART (NovoLOG) 100 UNIT/ML VIAL SQ SCH (18:14)
[2019-04-15] MEDS ORDERED: ALPRAZolam 0.25 MG TAB PO PRN (20:29)
[2019-04-15] MEDS ORDERED: TEMAZEPAM 15 MG CAP PO PRN (20:29)
[2019-04-15 20:40] LABS: Glucose,Whole Blood 90 mg/dL (75-99)
[2019-04-15] MEDS ORDERED: amLODIPine 10 MG TAB PO SCH (21:00)
[2019-04-15] MEDS ORDERED: INSULIN DETEMIR (LEVEMIR) 100 UNIT/ML SYR SQ SCH (21:00)
[2019-04-15] MEDS: CALCIUM CARB-MAG CARB-FOLIC 1 EACH TAB PO SCH (21:11)
[2019-04-15] MEDS: FUROSEMIDE 10 MG/ML 10 ML VIAL IV SCH (21:11)
--- NOTE | 2019-04-15 23:07 | HP ---
HISTORY AND PHYSICAL DATE OF SERVICE: 04/15/2019 CHIEF COMPLAINTS: Bradycardia, nausea, weakness, dizziness. HISTORY OF PRESENT ILLNESS: This 63-year-old woman with a past medical history of multiple medical problems, including chronic kidney disease, on hemodialysis Sunday, Sunday, Sunday, diabetes mellitus, hypertension, history of cardiac ablation, section, being followed by Dr. Ingram in the outpatient setting, recently had a blockage of the AV fistula on the left side which was being treated by a [facility] physician. The patient came back for hemodialysis today, but she was feeling tiredness, weakness, chest tightness, dizziness, and the patient was also found to be bradycardic. The patient was sent to [facility] Emergency Room and admitted for further evaluation and treatment. In the ER, the patient was found to have a potassium of 7.2. Creatinine was 8.44. EKG showed multiple arrhythmias, including junctional rhythm as well as possibly AV dissociation. Patient admitted in ICU. There is no history of fever, rigors, no history of headache, loss of consciousness, seizures at this time. PAST MEDICAL HISTORY: 1. History of diabetes mellitus. 2. Hypertension. 3. Renal disease. 4. Chronic renal failure. 5. History of diabetic ketoacidosis. HOME MEDICATIONS: 1. Norvasc 10 mg at bedtime. 2. NovoLog FlexPen t.i.d. and FlexPen 14 units before meals t.i.d. 3. Basaglar 24 units subcutaneously at bedtime. 4. [place] 7.5 daily p.r.n. 5. Neurontin 300 mg daily p.r.n. 6. Lasix 80 mg p.o. b.i.d. 7. Flexeril 10 mg p.o. t.i.d. p.r.n. 8. Colcrys 0.6 mg daily p.r.n. 9. Coreg 25 mg p.o. b.i.d. 10.MagneBind 400 mg p.o. before meals t.i.d. 11.Aspirin 81 mg p.o. daily. ALLERGIES: BACTRIM. FAMILY HISTORY: History of cancer, diabetes mellitus, prostate cancer. SOCIAL HISTORY: No history of smoking. No history of alcohol intake. REVIEW OF SYSTEMS: ENT: No diminished hearing. No diminished vision. CARDIOVASCULAR SYSTEM: No angina, palpitations. RESPIRATORY SYSTEM: No cough, hemoptysis. GI: As mentioned earlier. : As mentioned earlier. NERVOUS SYSTEM: No numbness, weakness. ALLERGY/IMMUNOLOGY: No asthma, hayfever. MUSCULOSKELETAL: As mentioned earlier. HEMATOLOGY/ONCOLOGY: No history of anemia. ENDOCRINE: Diabetes mellitus. CONSTITUTIONAL: As mentioned earlier. DERMATOLOGY: Negative. RHEUMATOLOGY: Negative. PSYCHIATRY: As mentioned earlier. PHYSICAL EXAMINATION: Patient is alert and oriented x3. Pulse 58, blood pressure 142/87, respiration 10, temperature 98.4, pulse ox 99% on 2 L. HEENT: Conjunctivae normal. NECK: No jugular venous distention. CARDIOVASCULAR SYSTEM: S1, S2 muffled. RESPIRATORY SYSTEM: Breath sounds diminished at the bases. A few scattered rhonchi and crackles. Expiratory wheezing also present. ABDOMEN: Soft, non-tender. No mass palpable. LEGS: No edema. No swelling. NERVOUS SYSTEM: Higher functions as mentioned earlier. Moves all 4 limbs. No focal motor or sensory deficit. LYMPHATICS: No lymph node palpable in neck, axillae or groin. SKIN: No ulcer, rash, bleeding. JOINTS: No active deforming arthropathy. LABS: WBC 7.8, hemoglobin 10.6, sodium 133, potassium 7.2. ASSESSMENT: 1. Severe hyperkalemia secondary to missed hemodialysis and resulting dizziness and cardiac arrhythmia. 2. Cardiac arrhythmia with bradycardia with possible AV dissociation. 3. Hyponatremia. 4. Chronic kidney disease, stage IV, on hemodialysis Sunday, Sunday, Sunday. 5. Diabetes mellitus, type 2. 6. Hypertension. 7. History of chronic kidney disease. 8. History of cardiac ablation. 9. Cholecystectomy. 10.History of diabetic ketoacidosis in the past. RECOMMENDATIONS AND DISCUSSION: In this 63-year-old woman who presented with multiple complex medical problems, we will monitor the patient closely, continue the current management, continue symptomatic treatment. The patient received insulin glucose regimen in the ER. I would recommend continuing with the hemodialysis and check potassium subsequently. Low- potassium diet. Avoid JOSSELYN inhibitors and potassium supplements. Otherwise, resume the rest of the medications. Prognosis is guarded because of multiple complex medical issues. Will repeat labs. Further recommendations to follow. Monitor blood sugars closely at this time. A copy of this dictation is being forwarded to Dr. Ingram, who is the primary physician. Repeat labs are ordered. Nephrology, Dr. Oliver and Cardiology have been consulted. A 2D echo also will be ordered. Further recommendations to follow. MMODL / IJN: [id number] / TABATHA
[2019-04-16] MEDS ORDERED: ONDANSETRON 4 MG/2 ML VIAL IVP STA (01:23)
[2019-04-16 05:24] LABS: Basophils # (A) 0.1 k/uL (0-0.2); Basophils % (A) 1 %; Eosinophils # (A) 0.2 k/uL (0-0.7); Eosinophils % (A) 2 %; HCT 34.1 % (34.0-46.0); HGB 10.6 gm/dL (11.4-16.0); Hypochromasia Slight; Lymphocytes # (A) 1.7 k/uL (1.0-4.8); Lymphocytes % (A) 23 %; MCH 30.8 pg (25.0-35.0); MCHC 31.1 g/dL (31.0-37.0); MCV 99.1 fL (80.0-100.0); Macrocytosis Slight; Mean Platelet Volume 7.9; Monocytes # (A) 0.4 k/uL (0-1.0); Monocytes % (A) 6 %; Neutrophils # (A) 4.8 k/uL (1.3-7.7); Neutrophils % (A) 67 %; Platelet Count 229 k/uL (150-450); RBC 3.44 m/uL (3.80-5.40); RDW 14.6 % (11.5-15.5); WBC 7.1 k/uL (3.8-10.6)
[2019-04-16 05:33] LABS: Calcium 8.4 mg/dL (8.4-10.2); Potassium 5.3 mmol/L (3.5-5.1)
[2019-04-16] MEDS: CALCIUM CARB-MAG CARB-FOLIC 1 EACH TAB PO SCH ×2 (07:04→10:58)
[2019-04-16] MEDS: PANTOPRAZOLE 40 MG TABLET PO SCH ×2 (07:05→10:59)
[2019-04-16] MEDS: CARVEDILOL 12.5 MG TAB PO SCH ×2 (07:05→10:58)
--- NOTE | 2019-04-16 07:19 | XR ---
EXAMINATION TYPE: XR chest 1V portable DATE OF EXAM: 04/16/2019 COMPARISON: 04/15/2019 HISTORY: Shortness of breath TECHNIQUE: Single frontal view of the chest is obtained. FINDINGS: Heart is prominent is atherosclerotic change aorta. No pneumothorax. Coarsened interstitia l pattern. No obvious areas of consolidation. IMPRESSION: 1. Stable x-ray demonstrating cardiomegaly with coarsened interstitium could been the basis of mild i nterstitial edema or interstitial pneumonitis.
[2019-04-16 07:26] LABS: Glucose,Whole Blood 71 mg/dL (75-99)
[2019-04-16] MEDS ORDERED: ASPIRIN 81 MG PO SCH (09:00)
[2019-04-16] MEDS ORDERED: FUROSEMIDE 80 MG TAB PO SCH (09:00)
--- NOTE | 2019-04-16 09:31 | ECHOF ---
Referral Reason:arrhythmia MEASUREMENTS -------- HEIGHT: 160.0 cm WEIGHT: 99.8 kg BP: 143/63 IVSd: 1.3 cm (0.6 - 1.1) LVIDd: 5.0 cm (3.9 - 5.3) LVPWd: 1.1 cm (0.6 - 1.1) IVSs: 1.6 cm LVIDs: 3.1 cm LVPWs: 1.9 cm LA Diam: 3.6 cm (2.7 - 3.8) Ao Diam: 3.1 cm (2.0 - 3.7) AV Cusp: 1.7 cm (1.5 - 2.6) MV EXCURSION: 10.738 mm (> 18.000) MV EF SLOPE: 39 mm/s (70 - 150) EPSS: 0.5 cm MV E Sherman: 1.19 m/s MV DecT: 295 ms MV A Sherman: 0.89 m/s MV E/A Ratio: 1.34 RAP: 10.00 mmHg RVSP: 44.61 mmHg FINDINGS -------- Sinus rhythm. This was a technically good study. [facility], [facility] The left ventricular size is normal. There is moderate concentric left ventricular hypertrophy. T here is normal global left ventricular contractility. The right ventricle is normal in size. The left atrium is normal in size. The right atrial size is normal. The aortic valve is trileaflet, and appears structurally normal. No aortic stenosis or regurgitation. Mild mitral annular calcification present. Mild mitral regurgitation is present. The tricuspid valve appears structurally normal. Mild tricuspid regurgitation present. There is m ild pulmonary hypertension. The right ventricular systolic pressure, as measured by Doppler, is 44. 61mmHg. Trace/mild (physiologic) pulmonic regurgitation. There is no pericardial effusion. CONCLUSIONS -------- 1. Sinus rhythm. 2. This was a technically good study. 3. The left ventricular size is normal. 4. There is moderate concentric left ventricular hypertrophy. 5. There is normal global left ventricular contractility. 6. The left atrium is normal in size. 7. The aortic valve is trileaflet, and appears structurally normal. No aortic stenosis or regurgitati on. 8. Mild mitral annular calcification present. 9. Mild mitral regurgitation is present. 10. The tricuspid valve appears structurally normal. 11. Mild tricuspid regurgitation present. 12. There is mild pulmonary hypertension. 13. Trace/mild (physiologic) pulmonic regurgitation. 14. There is no pericardial effusion. COLLAR SEPARATOR: GREGORY Tejeda RT(N)
--- NOTE | 2019-04-16 10:13 | P.PN ---
Subjective Patient is seen in follow-up for end-stage renal disease. She is maintained on hemodialysis on a Sunday schedule. Currently seen while undergoing hemodialysis. Potassium level is down to 5.3. Heart rate is stable. Denies chest pain or shortness of breath. Denies dizziness. Oral intake is fair. Feels nauseous and is having emesis after eating. Vital signs are stable. General: The patient appeared well nourished and normally developed. HEENT: Head exam is unremarkable. Neck is without jugular venous distension. LUNGS: Lungs are clear to auscultation and percussion. Breath sounds decreased. HEART: Rate and Rhythm are regular. First and second heart sounds normal. No murmurs, rubs or gallops. ABDOMEN: Abdominal exam reveals normal bowel sounds. Non-tender and non- distended. No evidence of peritonitis. EXTREMITITES: 1+ edema. Patient has chronic lymphedema. Objective - Vital Signs Vital signs: Vital Signs Temp 97.6 F 04/16/19 08:00 Pulse 64 04/16/19 09:00 Resp 13 04/16/19 09:00 BP 156/71 04/16/19 09:00 Pulse Ox 95 04/16/19 09:00 Intake & Output 04/15/19 04/16/19 04/16/19 18:59 06:59 18:59 Intake Total 0 690 10 Output Total 0 8500 0 Balance 0 -7810 10 Weight 99.79 kg 101.8 kg Intake: IV 0 190 10 Sodium Chloride 0.9% 1, 0 90 10 000 ml @ 20 mls/hr IV . Q24H ELIF Rx#:[id number] ceFAZolin 1,000 mg In 100 Sodium Chloride 0.9% 50 ml @ 100 mls/hr IVPB Q8HR ELIF Rx#:[id number] Hemodialysis 500 Output: Urine 0 0 0 Hemodialysis 4500 Other 4000 Other: Voiding Method Bedpan Bedpan Bedpan - Labs CBC & Chem 7: 04/16/19 04:55 04/16/19 04:55 Labs: Abnormal Lab Results - Last 24 Hours (Table) 04/15/19 04/15/19 04/15/19 Range/Units 12:45 12:45 13:42 RBC 3.39 L (3.80-5.40) m/uL Hgb 10.6 L (11.4-16.0) gm/dL MCV 101.4 H (80.0-100.0) fL MCHC 30.9 L (31.0-37.0) g/dL Sodium 133 L (137-145) mmol/L Potassium 7.2 H* (3.5-5.1) mmol/L Chloride 97 L (98-107) mmol/L BUN 57 H (7-17) mg/dL Creatinine 8.44 H* (0.52-1.04) mg/dL Glucose 322 H (74-99) mg/dL POC Glucose (mg/dL) 319 H (75-99) mg/dL Magnesium 3.2 H (1.6-2.3) mg/dL Alkaline Phosphatase 151 H (38-126) U/L 04/15/19 04/15/19 04/16/19 Range/Units 16:37 17:54 04:55 RBC 3.44 L (3.80-5.40) m/uL Hgb 10.6 L (11.4-16.0) gm/dL MCV (80.0-100.0) fL MCHC (31.0-37.0) g/dL Sodium (137-145) mmol/L Potassium (3.5-5.1) mmol/L Chloride (98-107) mmol/L BUN (7-17) mg/dL Creatinine (0.52-1.04) mg/dL Glucose (74-99) mg/dL POC Glucose (mg/dL) 291 H 202 H (75-99) mg/dL Magnesium (1.6-2.3) mg/dL Alkaline Phosphatase (38-126) U/L 04/16/19 04/16/19 Range/Units 04:55 06:59 RBC (3.80-5.40) m/uL Hgb (11.4-16.0) gm/dL MCV (80.0-100.0) fL MCHC (31.0-37.0) g/dL Sodium 134 L (137-145) mmol/L Potassium 5.3 H (3.5-5.1) mmol/L Chloride (98-107) mmol/L BUN 30 H (7-17) mg/dL Creatinine 4.98 H (0.52-1.04) mg/dL Glucose (74-99) mg/dL POC Glucose (mg/dL) 71 L (75-99) mg/dL Magnesium (1.6-2.3) mg/dL Alkaline Phosphatase (38-126) U/L Assessment and Plan Plan: Assessment: 1. End-stage renal disease maintained on hemodialysis on Sunday schedule via left upper extremity AV graft. 2. Hyperkalemia secondary to missed dialysis treatment. Better. 3. Insulin-dependent diabetes mellitus. 4. Hyponatremia secondary to chronic kidney disease. Better. 5. Anemia of chronic kidney disease. Hemoglobin at goal. 6. Symptomatic bradycardia secondary to hyperkalemia. Patient is also on Coreg outpatient. Better. 7. Chronic kidney disease mineral bone disease maintained on Magnebind. 8. Hypertension with chronic kidney disease. Controlled. 9. Volume overload. Better. Plan: Currently seen while undergoing hemodialysis. Next treatment on Sunday. Tight blood sugar control. Potential discharge today if nausea and vomiting improved.
[2019-04-16] MEDS: FUROSEMIDE 10 MG/ML 10 ML VIAL IV SCH (10:28)
[2019-04-16 10:42] VITALS: TEMP 98.2
[2019-04-16] MEDS: INSULIN ASPART (NovoLOG) 100 UNIT/ML VIAL SQ SCH (11:03)
[2019-04-16 11:30] VITALS: BP 160/73; PULSE 67; RESP 10
[2019-04-16 11:39] LABS: Glucose,Whole Blood 89 mg/dL (75-99)
--- NOTE | 2019-04-16 13:25 | P.PN ---
Subjective Progress Note Date: 04/16/19 Principal diagnosis: Profound bradycardia and hyperkalemia secondary to end-stage renal disease and chronic renal failure, missed dialysis this is a 63-year-old female with history of end-stage renal disease, patient is normally on hemodialysis on Mondays 1 days and Fridays, her hemodialysis is usually done via left upper lobe extremity AV graft. On Sunday, the patient went for hemodialysis, however the nurses could not access her AV graft. And the patient was seen this morning at [facility] by vascular surgery, and she underwent angioplasty. Patient was scheduled to undergo hemodialysis today on outpatient basis, however before she went for dialysis, patient was feeling lightheaded and generally weak. He came into the ER, and she was found to have a potassium of 7.2. She was also found to have profound bradycardia rate in the low 40s, patient was also noted to be edematous, and a blood sugar was 320. Patient received IV calcium along with insulin and she also received nebulized albuterol in the ER. IV Lasix was given. Then the patient was transferred to the ICU, and I was asked to see her on consultation. During my evaluation, the hemodialysis nurse was already dialyzing the patient. And the plan is to remove 2 L of fluids. Chest x-ray did show evidence of pulmonary edema. Patient was reevaluated today on 04/16/2019, she seems to be doing great, presently undergoing dialysis, hemodynamically stable, she is in sinus rhythm, denies any cough wheezing or shortness of breath. Denies any nausea vomiting abdominal pain. Patient actually is doing great. And has been steadily improving since dialysis was started yesterday. All labs were reviewed today including normal CBC hemoglobin is 10.6 electrolytes are noted potassium is down to 5.3. Objective - Vital Signs Vital signs: Vital Signs Temp 98.2 F 04/16/19 10:41 Pulse 67 04/16/19 11:00 Resp 10 L 04/16/19 11:00 BP 160/73 04/16/19 11:00 Pulse Ox 96 04/16/19 11:00 Intake & Output 04/15/19 04/16/19 04/16/19 18:59 06:59 18:59 Intake Total 0 690 10 Output Total 0 8500 3000 Balance 0 -7810 -2990 Weight 99.79 kg 101.8 kg Intake: IV 0 190 10 Sodium Chloride 0.9% 1, 0 90 10 000 ml @ 20 mls/hr IV . Q24H ELIF Rx#:[id number] ceFAZolin 1,000 mg In 100 Sodium Chloride 0.9% 50 ml @ 100 mls/hr IVPB Q8HR ELIF Rx#:[id number] Hemodialysis 500 Output: Urine 0 0 0 Hemodialysis 4500 3000 Other 4000 Other: Voiding Method Bedpan Bedpan Bedpan - Exam General appearance: alert, in no apparent distress Head exam: atraumatic, normocephalic, Eye exam: PERRL, EOMI. Absent: scleral icterus, conjunctival injection, periorbital swelling ENT exam: mucous membranes moist, throat is clear. Neck exam: no tenderness, meningismus, lymphadenopathy Respiratory exam: Clear throughout no crackles or rhonchi or wheezes Cardiovascular Exam: Normal S1 and S2, no S3 gallop. GI/Abdominal exam: soft, normal bowel sounds. Absent: distended, tenderness, guarding, rebound, rigid Extremities exam: full ROM, normal capillary refill. Absent: tenderness,1+ pedal edema, joint swelling, calf tenderness, Neurological exam: Present: alert, oriented X3, CN II-XII intact Psychiatric exam: Normal mood affect and mental status examination. Skin exam: No clubbing edema or cyanosis. - Labs CBC & Chem 7: 04/16/19 04:55 04/16/19 04:55 Labs: Abnormal Lab Results - Last 24 Hours (Table) 04/15/19 04/15/19 04/15/19 Range/Units 12:45 13:42 16:37 RBC (3.80-5.40) m/uL Hgb (11.4-16.0) gm/dL Sodium 133 L (137-145) mmol/L Potassium 7.2 H* (3.5-5.1) mmol/L Chloride 97 L (98-107) mmol/L BUN 57 H (7-17) mg/dL Creatinine 8.44 H* (0.52-1.04) mg/dL Glucose 322 H (74-99) mg/dL POC Glucose (mg/dL) 319 H 291 H (75-99) mg/dL Magnesium 3.2 H (1.6-2.3) mg/dL Alkaline Phosphatase 151 H (38-126) U/L 0604/16/19 04/16/19 Range/Units 17:54 04:55 04:55 RBC 3.44 L (3.80-5.40) m/uL Hgb 10.6 L (11.4-16.0) gm/dL Sodium 134 L (137-145) mmol/L Potassium 5.3 H (3.5-5.1) mmol/L Chloride (98-107) mmol/L BUN 30 H (7-17) mg/dL Creatinine 4.98 H (0.52-1.04) mg/dL Glucose (74-99) mg/dL POC Glucose (mg/dL) 202 H (75-99) mg/dL Magnesium (1.6-2.3) mg/dL Alkaline Phosphatase (38-126) U/L 04/16/19 Range/Units 06:59 RBC (3.80-5.40) m/uL Hgb (11.4-16.0) gm/dL Sodium (137-145) mmol/L Potassium (3.5-5.1) mmol/L Chloride (98-107) mmol/L BUN (7-17) mg/dL Creatinine (0.52-1.04) mg/dL Glucose (74-99) mg/dL POC Glucose (mg/dL) 71 L (75-99) mg/dL Magnesium (1.6-2.3) mg/dL Alkaline Phosphatase (38-126) U/L Assessment and Plan Assessment: impression: 1 acute hyperkalemia and profound bradycardia secondary to hyperkalemia secondary to chronic kidney disease and missed dialysis. Resolved postdialysis. 2 end stage renal disease, on hemodialysis. 3 insulin-dependent diabetes 4 electrolytes imbalance secondary to chronic kidney disease 5 anemia of chronic kidney disease 6 hypertension and history of nephrosclerosis 7 fluid overload secondary to renal failure./Chronic/end-stage renal disease. 8 history of neuropathy secondary to diabetes 9 history of cardiac ablation 10 suspect limited area of cellulitis in the left lower extremity patient was placed on Kefzol, however if discharged today she could go back on Keflex. 11 History of Irritable Bowel Syndrome Presently Asymptomatic Recommendation: Patient is presently undergoing dialysis, I believe the patient could be considered for discharge home. And we'll see on when necessary basis. Time with Patient: Less than 30
--- NOTE | 2019-04-16 17:16 | P.CRDCN ---
History of Present Illness Consult date: 04/16/19 History of present illness: This is a 63-year-old female with history of chronic renal failure on dialysis who apparently missed dialysis because of her fistula was not working well. Patient had angioplasty done at [facility]. However, patient came to the emergency room with complaints of weakness and fatigue. Patient was found to have hyperkalemia and also severe bradycardia. Patient was treated in the emergency room. She did undergo dialysis yesterday. Her heart rate has improved. She is in sinus rhythm. Patient has history of atrial fibrillation a nd had an ablation done several years ago. Follows with Dr. Hein. Hasn't had any chest pain or shortness of breath. Patient is clinically stable at this time. Patient may be discharged home today Review of Systems As per the chart Past Medical History Past Medical History: Diabetes Mellitus, Hypertension, Renal Disease Additional Past Medical History / Comment(s): Pt states she has recently been il l with influenza that went into bronchitis, ESRD with hemodialysis M/W/F, IDDM type II, past DKA, neuropathy bilateral feet/legs and alittle in hands, "fast heart rate"-had cardiac ablation, lymphedema bilateral lower legs/feet, gout R knee, mineral bone disease, IBS, R sided Mustafa's palsey. History of Any Multi-Drug Resistant Organisms: None Reported Past Surgical History: Appendectomy, Cardiac Ablation, Section, Cholecystectomy, Tubal Ligation Additional Past Surgical History / Comment(s): bilateral cataract removal with lens implants, C-sections, bilateral benign breast biopsies, AV graft left arm done 06-23-16 for dialysis, colonoscopy. Past Anesthesia/Blood Transfusion Reactions: Motion Sickness, Postoperative Nausea & Vomiting (PONV) Past Psychological History: No Psychological Hx Reported Additional Psychological History / Comment(s): Pt resides with her spouse. She is independent. She uses a walker. She drives. She has a nebulizer. Smoking Status: Never smoker Past Alcohol Use History: None Reported Past Drug Use History: None Reported - Past Family History Father Family Medical History: Cancer, Diabetes Mellitus Additional Family Medical History / Comment(s): Father had prostate cancer. Mother Family Medical History: Cancer Additional Family Medical History / Comment(s): Mother had breast cancer. Medications and Allergies Home Medications Medication Instructions Recorded Confirmed Type Carvedilol 25 mg PO BID 09/22/15 04/15/19 History Colchicine [Colcrys] 0.6 mg PO DAILY PRN 06/27/16 04/15/19 History Gabapentin [Neurontin] 300 mg PO DAILY PRN 06/27/16 04/15/19 History Aspirin [Adult Low Dose Aspirin EC] 81 mg PO DAILY 09/16/16 04/15/19 History amLODIPine [Norvasc] 10 mg PO HS 11/29/16 04/15/19 History Calcium Carb-Mag Carb-Folic 1 tab PO AC-TID 07/08/18 04/15/19 History [Magnebind 400] HYDROcodone/APAP 7.5-325MG [[place] 1 tab PO DAILY PRN 07/08/18 04/15/19 History 7.5-325] Insulin Aspart [NovoLOG Flexpen] 14 units SQ AC-TID 07/08/18 04/15/19 History Insulin Aspart [NovoLOG Flexpen] See Protocol SQ AC-TID 07/08/18 04/15/19 History Insulin Glargine,Hum.rec.anlog 24 unit SQ HS 07/08/18 04/15/19 History [Basaglar Kwikpen U-100] Cyclobenzaprine [Flexeril] 10 mg PO TID PRN #20 tab 01/18/19 04/15/19 Rx Furosemide [Lasix] 80 mg PO BID 04/15/19 04/15/19 History Allergies Allergy/AdvReac Type Severity Reaction Status Date / Time sulfamethoxazole AdvReac Nausea & Verified 04/15/19 13:03 [From Bactrim] Vomiting,dyspnea trimethoprim [From Bactrim] AdvReac Nausea & Verified 04/15/19 13:03 Vomiting,dyspnea Physical Exam Vitals: Vital Signs Temp Pulse Pulse Pulse Resp BP BP 04/16/19 11:00 67 10 L 160/73 04/16/19 10:41 98.2 F 68 16 143/65 04/16/19 10:00 66 16 166/60 04/16/19 09:00 64 13 156/71 04/16/19 08:20 13 04/16/19 08:05 04/16/19 08:00 97.6 F 66 12 158/71 04/16/19 07:00 62 15 148/69 04/16/19 06:00 63 17 159/69 04/16/19 05:00 60 16 133/59 04/16/19 04:00 98.3 F 62 22 145/69 04/16/19 03:00 59 L 15 143/64 04/16/19 02:00 63 14 162/80 04/16/19 01:00 63 21 140/67 04/16/19 00:00 98.3 F 60 15 143/67 04/15/19 23:00 58 L 13 129/61 04/15/19 22:30 58 L 13 129/61 04/15/19 22:00 58 L 13 156/65 04/15/19 21:00 61 14 149/73 04/15/19 20:52 97.7 F 59 L 14 149/73 04/15/19 20:45 59 L 17 142/86 04/15/19 20:30 55 L 10 L 153/68 04/15/19 20:15 57 L 14 142/69 04/15/19 20:00 98.4 F 58 L 10 L 142/87 04/15/19 19:45 59 L 12 152/85 04/15/19 19:30 55 L 10 L 145/74 04/15/19 19:15 56 L 10 L 148/76 04/15/19 19:00 57 L 159/82 04/15/19 18:46 60 164/99 04/15/19 18:30 63 20 154/76 04/15/19 18:15 63 17 157/77 04/15/19 18:00 62 12 156/62 04/15/19 17:45 61 18 161/91 04/15/19 17:30 60 16 149/100 04/15/19 17:15 44 L 14 135/62 Pulse Ox 04/16/19 11:00 96 04/16/19 10:41 04/16/19 10:00 97 04/16/19 09:00 95 04/16/19 08:20 04/16/19 08:05 97 04/16/19 08:00 96 04/16/19 07:00 94 L 04/16/19 06:00 94 L 04/16/19 05:00 96 04/16/19 04:00 97 04/16/19 03:00 97 04/16/19 02:00 87 L 04/16/19 01:00 95 04/16/19 00:00 98 06/18/19 23:00 98 04/15/19 22:30 98 04/15/19 22:00 99 04/15/19 21:00 99 04/15/19 20:52 04/15/19 20:45 98 04/15/19 20:30 99 04/15/19 20:15 99 04/15/19 20:00 99 04/15/19 19:45 99 04/15/19 19:30 98 04/15/19 19:15 99 04/15/19 19:00 99 04/15/19 18:46 99 04/15/19 18:30 96 04/15/19 18:15 97 04/15/19 18:00 91 L 04/15/19 17:45 97 04/15/19 17:30 90 L 04/15/19 17:15 97 Intake and Output 04/16/19 04/16/19 04/16/19 06:59 14:59 22:59 Intake Total 120 10 Output Total 0 3000 Balance 120 -2990 Intake: IV 120 10 Sodium Chloride 0.9% 1, 70 10 000 ml @ 20 mls/hr IV . Q24H ELIF Rx#:[id number] ceFAZolin 1,000 mg In 50 Sodium Chloride 0.9% 50 ml @ 100 mls/hr IVPB Q8HR ELIF Rx#:[id number] Output: Urine 0 0 Hemodialysis 3000 Other: Voiding Method Bedpan Bedpan Weight 101.8 kg GENERAL EXAM: Patient is alert and oriented and doesn't appear to be in any acute distress HEENT: Normocephalic. Normal reaction of pupils, equal size, normal range of extraocular motion. No erythema or exudates in the throat. NECK: No masses, no nuchal rigidity. CHEST: No chest wall deformity. LUNGS: Equal air entry with no crackles or wheeze. HEART: S1 and S2 normal with no audible mumurs or gallops. Regular rhythm, femorals equal on both sides.. ABDOMEN: No hepatosplenomegaly, normal bowel sounds, no guarding or rigidity. SKIN: No rashes CENTRAL NERVOUS SYSTEM: No focal deficits. EXTREMITIES: No cyanosis, clubbing or edema. Results 04/16/19 04:55 04/16/19 04:55 CBC 04/16/19 Range/Units 04:55 WBC 7.1 (3.8-10.6) k/uL RBC 3.44 L (3.80-5.40) m/uL Hgb 10.6 L (11.4-16.0) gm/dL Hct 34.1 (34.0-46.0) % Plt Count 229 (150-450) k/uL Comprehensive Metabolic Panel 04/16/19 Range/Units 04:55 Sodium 134 L (137-145) mmol/L Potassium 5.3 H (3.5-5.1) mmol/L Chloride 98 (98-107) mmol/L Carbon Dioxide 26 (22-30) mmol/L BUN 30 H (7-17) mg/dL Creatinine 4.98 H (0.52-1.04) mg/dL Glucose 92 (74-99) mg/dL Calcium 8.4 (8.4-10.2) mg/dL Intake and Output 04/16/19 04/16/19 04/16/19 06:59 14:59 22:59 Intake Total 120 10 Output Total 0 3000 Balance 120 -2990 Intake: IV 120 10 Sodium Chloride 0.9% 1, 70 10 000 ml @ 20 mls/hr IV . Q24H ELIF Rx#:[id number] ceFAZolin 1,000 mg In 50 Sodium Chloride 0.9% 50 ml @ 100 mls/hr IVPB Q8HR ELIF Rx#:[id number] Output: Urine 0 0 Hemodialysis 3000 Other: Voiding Method Bedpan Bedpan Weight 101.8 kg 04/16/19 04:55 04/16/19 04:55 EKG Interpretations (text) Initial EKG showed severe bradycardia. His Assessment and Plan (1) Severe sinus bradycardia Status: Acute Code(s): R00.1 - BRADYCARDIA, UNSPECIFIED SNOMED Code(s): 82506370 (2) Chronic renal failure Status: Acute Code(s): N18.9 - CHRONIC KIDNEY DISEASE, UNSPECIFIED SNOMED Code(s): 02556140 (3) Hypertension Status: Acute Code(s): I10 - ESSENTIAL (PRIMARY) HYPERTENSION SNOMED Code(s): 74830129 (4) Hyperkalemia Status: Acute Code(s): E87.5 - HYPERKALEMIA SNOMED Code(s): 69564582 Plan: Patient's bradycardia is related to hyperkalemia. Heart rate has improved since correction of the hyperkalemia. Has history of atrial fibrillation but currently maintaining sinus rhythm. No further cardiac workup at this time. Follow-up with Dr. Hein upon discharge.
--- NOTE | 2019-04-17 21:07 | DS ---
DISCHARGE SUMMARY DATE OF SERVICE: 04/17/2019 FINAL DIAGNOSES: 1. Severe hyperkalemia secondary to missed hemodialysis resulting in dizziness and cardiac arrhythmia. 2. Cardiac arrhythmia with bradycardia and possible AV dissociation. 3. Hyponatremia. 4. Chronic kidney disease, stage IV, on hemodialysis Sunday, Sunday, Sunday. 5. Diabetes mellitus, type 2. 6. Hypertension. 7. History of chronic kidney disease. 8. History of cardiac ablation. 9. History of cholecystectomy. 10.History of diabetic ketoacidosis in the past. DISCHARGE DISPOSITION: The patient will be discharged in stable condition with guarded prognosis. HISTORY OF PRESENT ILLNESS: This 63-year-old woman with a past medical history of multiple medical problems, was admitted with potassium of 7.2, dizziness and cardiac arrhythmia. The patient apparently missed hemodialysis. The patient had issues with an AV graft which was treated by a [place] physician. Hemodialysis continued and the patient improved significantly. Potassium improved to 5.3. Recommend outpatient followup, low- potassium diet. On exam, vitals are stable. CARDIOVASCULAR SYSTEM: S1, S2 muffled. ABDOMEN: Soft. NERVOUS SYSTEM: No focal deficit. DISCHARGE ADVICE AND MEDICATIONS: 1. Discharge diet is cardiac. 2. Activity limited until followup. 3. Follow up with Dr. Ingram in 2 to 3 days. 4. Follow up with Nephrology as advised. 5. Aspirin 81 mg p.o. daily. 6. Lantus 24 units subcutaneously at bedtime. 7. Coreg 25 mg p.o. b.i.d. 8. Colcrys 0.6 p.o. daily p.r.n. 9. Lasix 80 mg p.o. b.i.d. 10.Magnebind 400 mg before meals t.i.d. 11.Neurontin 300 mg daily p.r.n. 12.Hydrocodone 7.5 mg . 13.Norvasc 10 mg at bedtime. 14.NovoLog FlexPen 14 units before meals t.i.d. and also scale as before. 15.Flexeril 10 mg t.i.d. p.r.n. 16.CBC and BMP in the outpatient setting. Once again, the patient will be discharged in stable condition with guarded prognosis. MMODL / IJN: [id number] /
== END 2019-04-16 12:49 | disposition home or self-care (01) | DRG 640 ==
LOC: EC 12:25 → 2SICU 15:56
PROVIDERS: ADMIT Hospitalist; ATTEND Hospitalist
PROC: 5A1D70Z Performance of Urinary Filtration, Intermittent, Less than 6 Hours Per Day (ICD-10-PCS; principal; 2019-04-15)
DX: E87.5 Hyperkalemia (principal); N18.6 End stage renal disease; I12.0 Hypertensive chronic kidney disease with stage 5 chronic kidney disease or end stage renal disease; L03.116 Cellulitis of left lower limb; E11.22 Type 2 diabetes mellitus with diabetic chronic kidney disease; E11.40 Type 2 diabetes mellitus with diabetic neuropathy, unspecified; E83.9 Disorder of mineral metabolism, unspecified; R00.1 Bradycardia, unspecified; D63.1 Anemia in chronic kidney disease; E87.70 Fluid overload, unspecified; E87.1 Hypo-osmolality and hyponatremia; G51.0 Bell's palsy; I89.0 Lymphedema, not elsewhere classified; K58.9 Irritable bowel syndrome, unspecified; M10.9 Gout, unspecified; Z79.82 Long term (current) use of aspirin; Z79.4 Long term (current) use of insulin; Z79.899 Other long term (current) drug therapy; Z99.2 Dependence on renal dialysis; Z98.891 History of uterine scar from previous surgery; Z90.49 Acquired absence of other specified parts of digestive tract; Z98.51 Tubal ligation status; Z86.79 Personal history of other diseases of the circulatory system; Z98.42 Cataract extraction status, left eye; Z98.41 Cataract extraction status, right eye; Z96.1 Presence of intraocular lens; Z88.2 Allergy status to sulfonamides; Z83.3 Family history of diabetes mellitus; Z80.42 Family history of malignant neoplasm of prostate; Z80.3 Family history of malignant neoplasm of breast
CPT/HCPCS: 36415; 71045; 71046; 80048; 80053; 82553; 83735; 84484; 85025; 85610; 85730; 90935; 93005; 93306; 94640; 94644; 96365; 96366; 96375; 99291

== ENCOUNTER → 2019-07-15 | Outpatient (CLI) | payer MEDICARE, BC ==
[2019-07-15 18:43] LABS: African American GFR (CKD) 9.6 (60.0-200.0); Albumin 4.1 g/dL (3.80-4.90); Albumin/Globulin Ratio 1.24 (1.60-3.17); Anion Gap 12.9 mmol/L (4.00-12.00); BUN/Creat Ratio 3.53 Ratio (12.00-20.00); Calcium 9.3 mg/dL (8.7-10.3); Carbon Dioxide 29.1 mmol/L (21.6-31.8); Globulin 3.3 g/dL (1.6-3.3); Potassium 3.9 mmol/L (3.5-5.5); Total Bilirubin 0.5 mg/dL (0.2-1.2); Total Protein 7.4 g/dL (6.2-8.2)
== END | disposition home or self-care (01) ==
LOC: LABWHC1 13:35
PROVIDERS: ATTEND Family Medicine
DX: Z00.01 Encounter for general adult medical examination with abnormal findings (principal); N18.6 End stage renal disease; E11.22 Type 2 diabetes mellitus with diabetic chronic kidney disease; K58.0 Irritable bowel syndrome with diarrhea; I12.0 Hypertensive chronic kidney disease with stage 5 chronic kidney disease or end stage renal disease
CPT/HCPCS: 36415; 80053

== ENCOUNTER 2020-05-19 05:54 | Emergency (ER) | payer MEDICARE, BC ==
--- NOTE | 2020-05-19 05:58 | ED ---
SOB HPI - General Stated Complaint: Bradycardia Time Seen by Provider: 05/19/20 05:57 Source: RN notes reviewed, old records reviewed - History of Present Illness Initial Comments: This is a 64-year-old female presented today for evaluation of low heart rate. Patient had abnormal low heart rate when she woke up today. Patient has persistent low heart rate here in the ER states she is a never this low lower always does run around 60 to mid 50s blood pressure is normal she feels otherwise fine. Patient missed dialysis secondary to low heart rate today MD Complaint: shortness of breath, cough -: days(s) Severity: moderate Severity scale (1-10): 4 Quality: dull, aching Consistency: constant Improves With: nothing Worsens With: nothing Known History Of: COPD Context: recent URI Associated Symptoms: cough - Related Data Home Medications Medication Instructions Recorded Confirmed Carvedilol 25 mg PO BID 09/22/15 05/19/20 Colchicine [Colcrys] 0.6 mg PO DIRECTED PRN 06/27/16 05/19/20 Gabapentin [Neurontin] 300 mg PO DAILY 06/27/16 05/19/20 Aspirin [Adult Low Dose Aspirin EC] 81 mg PO DAILY 09/16/16 05/19/20 amLODIPine [Norvasc] 10 mg PO HS 11/29/16 05/19/20 Calcium Carb-Mag Carb-Folic 1 tab PO AC-TID 07/08/18 05/19/20 [Magnebind 400] HYDROcodone/APAP 7.5-325MG [[place] 1 tab PO Q6H PRN 07/08/18 05/19/20 7.5-325] Insulin Aspart [NovoLOG Flexpen] See Protocol SQ AC-TID 07/08/18 05/19/20 Insulin Glargine,Hum.rec.anlog 24 unit SQ HS 07/08/18 05/19/20 [Basaglar Kwikpen U-100] Furosemide [Lasix] 40 mg PO DIRECTED 04/15/19 05/19/20 Lidocaine-Prilocaine Cream [Emla 1 applic TOPICAL MOWEFR PRN 05/19/20 05/19/20 Cream 2.5%/2.5%] Ondansetron HCl [Zofran] 4 mg PO Q6H PRN 05/19/20 05/19/20 Allergies Allergy/AdvReac Type Severity Reaction Status Date / Time sulfamethoxazole AdvReac Nausea & Verified 05/19/20 07:04 [From Bactrim] Vomiting,dyspnea trimethoprim [From Bactrim] AdvReac Nausea & Verified 05/19/20 07:04 Vomiting,dyspnea Review of Systems ROS Statement: Those systems with pertinent positive or pertinent negative responses have been documented in the HPI. ROS Other: All systems not noted in ROS Statement are negative. Past Medical History Past Medical History: Diabetes Mellitus, Hypertension, Renal Disease Additional Past Medical History / Comment(s): Pt states she has recently been ill with influenza that went into bronchitis, ESRD with hemodialysis M/W/F, IDDM type II, past DKA, neuropathy bilateral feet/legs and alittle in hands, "fast heart rate"-had cardiac ablation, lymphedema bilateral lower legs/feet, gout R knee, mineral bone disease, IBS, R sided Mustafa's palsey. History of Any Multi-Drug Resistant Organisms: None Reported Past Surgical History: Appendectomy, Cardiac Ablation, Section, Cho lecystectomy, Tubal Ligation Additional Past Surgical History / Comment(s): bilateral cataract removal with lens implants, C-sections, bilateral benign breast biopsies, AV graft left arm done 06-23-16 for dialysis, colonoscopy. Past Anesthesia/Blood Transfusion Reactions: Motion Sickness, Postoperative Nausea & Vomiting (PONV) Past Psychological History: No Psychological Hx Reported Additional Psychological History / Comment(s): Pt resides with her spouse. She is independent. She uses a walker. She drives. She has a nebulizer. Past Alcohol Use History: None Reported Past Drug Use History: None Reported - Past Family History Father Family Medical History: Cancer, Diabetes Mellitus Additional Family Medical History / Comment(s): Father had prostate cancer. Mother Family Medical History: Cancer Additional Family Medical History / Comment(s): Mother had breast cancer. General Exam General appearance: alert, in no apparent distress Head exam: Present: atraumatic, normocephalic, normal inspection Eye exam: Present: normal appearance, PERRL, EOMI. Absent: scleral icterus, conjunctival injection, periorbital swelling ENT exam: Present: normal exam, mucous membranes moist Neck exam: Present: normal inspection. Absent: tenderness, meningismus, lymphadenopathy Respiratory exam: Present: normal lung sounds bilaterally. Absent: respiratory distress, wheezes, rales, rhonchi, stridor Cardiovascular Exam: Present: normal rhythm, bradycardia, normal heart sounds. Absent: systolic murmur, diastolic murmur, rubs, gallop, clicks GI/Abdominal exam: Present: soft, normal bowel sounds. Absent: distended, tenderness, guarding, rebound, rigid Extremities exam: Present: normal inspection, full ROM, normal capillary refill. Absent: tenderness, pedal edema, joint swelling, calf tenderness Back exam: Present: normal inspection Neurological exam: Present: alert, oriented X3, CN II-XII intact Psychiatric exam: Present: normal affect, normal mood Skin exam: Present: warm, dry, intact, normal color. Absent: rash Course Vital Signs 05/19/20 05/19/20 05/19/20 06:00 06:13 07:14 Temperature 98.1 F 98.1 F Pulse Rate 53 L 52 L Pulse Rate [ 51 L Movie Actor ] Respiratory 16 17 Rate Blood Pressure 123/59 131/57 O2 Sat by Pulse 99 98 Oximetry - Reevaluation(s) Reevaluation #1: 05/19/20 06:48 Medical records reviewed Reevaluation #2: Patient states heart is backed about where she normally has it, she feels asymptomatic and has making dramatic since he knows her heart rate being this morning Medical Decision Making - Medical Decision Making 64 female DF for evaluation of abnormal heart rate blood pressures remained normal she is a symptomatic and can be discharged home - Lab Data Result diagrams: 05/19/20 06:10 05/19/20 06:10 Lab Results 05/19/20 05/19/20 05/19/20 Range/Units 06:10 06:10 06:10 WBC 6.8 (3.8-10.6) k/uL RBC 3.33 L (3.80-5.40) m/uL Hgb 10.5 L (11.4-16.0) gm/dL Hct 32.8 L (34.0-46.0) % MCV 98.5 (80.0-100.0) fL MCH 31.4 (25.0-35.0) pg MCHC 31.9 (31.0-37.0) g/dL RDW 14.1 (11.5-15.5) % Plt Count 201 (150-450) k/uL Neutrophils % 68 % Lymphocytes % 20 % Monocytes % 7 % Eosinophils % 3 % Basophils % 1 % Neutrophils # 4.7 (1.3-7.7) k/uL Lymphocytes # 1.3 (1.0-4.8) k/uL Monocytes # 0.5 (0-1.0) k/uL Eosinophils # 0.2 (0-0.7) k/uL Basophils # 0.1 (0-0.2) k/uL PT 10.4 (9.0-12.0) sec INR 1.0 (<1.2) APTT 25.3 (22.0-30.0) sec Sodium 135 L (137-145) mmol/L Potassium 4.1 (3.5-5.1) mmol/L Chloride 96 L (98-107) mmol/L Carbon Dioxide 26 (22-30) mmol/L Anion Gap 13 mmol/L BUN 36 H (7-17) mg/dL Creatinine 6.33 H (0.52-1.04) mg/dL Est GFR (CKD-EPI)AfAm 7 (>60 ml/min/1.73 sqM) Est GFR (CKD-EPI)NonAf 6 (>60 ml/min/1.73 sqM) Glucose 115 H (74-99) mg/dL Plasma Lactic Acid [place] (0.7-2.0) mmol/L Calcium 9.2 (8.4-10.2) mg/dL Phosphorus 3.8 (2.5-4.5) mg/dL Magnesium 2.9 H (1.6-2.3) mg/dL Total Bilirubin 0.7 (0.2-1.3) mg/dL AST 27 (14-36) U/L ALT 26 (4-34) U/L Alkaline Phosphatase 121 (38-126) U/L Creatine Kinase 125 (30-135) U/L Troponin I (0.000-0.034) ng/mL NT-Pro-B Natriuret Pep pg/mL Total Protein 7.5 (6.3-8.2) g/dL Albumin 4.3 (3.5-5.0) g/dL TSH 2.520 (0.465-4.680) mIU/L 05/19/20 05/19/20 05/19/20 Range/Units 06:10 06:10 06:10 WBC (3.8-10.6) k/uL RBC (3.80-5.40) m/uL Hgb (11.4-16.0) gm/dL Hct (34.0-46.0) % MCV (80.0-100.0) fL MCH (25.0-35.0) pg MCHC (31.0-37.0) g/dL RDW (11.5-15.5) % Plt Count (150-450) k/uL Neutrophils % % Lymphocytes % % Monocytes % % Eosinophils % % Basophils % % Neutrophils # (1.3-7.7) k/uL Lymphocytes # (1.0-4.8) k/uL Monocytes # (0-1.0) k/uL Eosinophils # (0-0.7) k/uL Basophils # (0-0.2) k/uL PT (9.0-12.0) sec INR (<1.2) APTT (22.0-30.0) sec Sodium (137-145) mmol/L Potassium (3.5-5.1) mmol/L Chloride (98-107) mmol/L Carbon Dioxide (22-30) mmol/L Anion Gap mmol/L BUN (7-17) mg/dL Creatinine (0.52-1.04) mg/dL Est GFR (CKD-EPI)AfAm (>60 ml/min/1.73 sqM) Est GFR (CKD-EPI)NonAf (>60 ml/min/1.73 sqM) Glucose (74-99) mg/dL Plasma Lactic Acid [place] 1.1 (0.7-2.0) mmol/L Calcium (8.4-10.2) mg/dL Phosphorus (2.5-4.5) mg/dL Magnesium (1.6-2.3) mg/dL Total Bilirubin (0.2-1.3) mg/dL AST (14-36) U/L ALT (4-34) U/L Alkaline Phosphatase (38-126) U/L Creatine Kinase (30-135) U/L Troponin I <0.012 (0.000-0.034) ng/mL NT-Pro-B Natriuret Pep 66146 pg/mL Total Protein (6.3-8.2) g/dL Albumin (3.5-5.0) g/dL TSH (0.465-4.680) mIU/L - EKG Data -: EKG Interpreted by Me (EKG shows sinus bradycardia first-degree block the rate of 52 [place] 238 QRS 98) Disposition Clinical Impression: Bradycardia, Palpitations Disposition: HOME SELF-CARE Condition: Good Instructions (If sedation given, give patient instructions): Heart Palpitations (ED) Is patient prescribed a controlled substance at d/c from ED?: No Referrals: Piedad Ingram III, MD [Primary Care Provider] - 1-2 days
[2020-05-19 06:06] VITALS: TEMP 98.1
[2020-05-19 06:20] LABS: Basophils # (A) 0.1 k/uL (0-0.2); Basophils % (A) 1 %; Eosinophils # (A) 0.2 k/uL (0-0.7); Eosinophils % (A) 3 %; HCT 32.8 % (34.0-46.0); HGB 10.5 gm/dL (11.4-16.0); Lymphocytes # (A) 1.3 k/uL (1.0-4.8); Lymphocytes % (A) 20 %; MCH 31.4 pg (25.0-35.0); MCHC 31.9 g/dL (31.0-37.0); MCV 98.5 fL (80.0-100.0); Mean Platelet Volume 8.4; Monocytes # (A) 0.5 k/uL (0-1.0); Monocytes % (A) 7 %; Neutrophils # (A) 4.7 k/uL (1.3-7.7); Neutrophils % (A) 68 %; Platelet Count 201 k/uL (150-450); RBC 3.33 m/uL (3.80-5.40); RDW 14.1 % (11.5-15.5); WBC 6.8 k/uL (3.8-10.6)
[2020-05-19 06:30] LABS: Partial Thromboplastin Time 25.3 sec (22.0-30.0); Prothrombin Time 10.4 sec (9.0-12.0)
[2020-05-19 06:35] LABS: Albumin 4.3 g/dL (3.5-5.0); Calcium 9.2 mg/dL (8.4-10.2); Magnesium 2.9 mg/dL (1.6-2.3); Phosphorus 3.8 mg/dL (2.5-4.5); Potassium 4.1 mmol/L (3.5-5.1); Total Bilirubin 0.7 mg/dL (0.2-1.3); Total Protein 7.5 g/dL (6.3-8.2)
[2020-05-19 07:19] VITALS: BP 131/57; PULSE 52; RESP 17
== END 2020-05-19 07:21 | disposition home or self-care (01) ==
LOC: EC 05:54
DX: R00.1 Bradycardia, unspecified (principal); R00.2 Palpitations; R06.02 Shortness of breath; R05 Cough; I12.0 Hypertensive chronic kidney disease with stage 5 chronic kidney disease or end stage renal disease; E11.22 Type 2 diabetes mellitus with diabetic chronic kidney disease; N18.6 End stage renal disease; E11.40 Type 2 diabetes mellitus with diabetic neuropathy, unspecified; Z87.09 Personal history of other diseases of the respiratory system; Z99.2 Dependence on renal dialysis; Z98.890 Other specified postprocedural states; Z79.82 Long term (current) use of aspirin; Z79.4 Long term (current) use of insulin; Z79.899 Other long term (current) drug therapy; Z88.2 Allergy status to sulfonamides
CPT/HCPCS: 36415; 80053; 82550; 83605; 83735; 83880; 84100; 84443; 84484; 85025; 85610; 85730; 93005; 99284

== ENCOUNTER 2020-07-12 20:34 | Inpatient (IN) | payer MEDICARE, BC ==
[2020-07-12] MEDS ORDERED: IPRATROPIUM-ALBUTEROL 3 ML NEB INHALATION STA (21:05)
[2020-07-12] MEDS ORDERED: ONDANSETRON 4 MG/2 ML VIAL IVP STA (21:06)
[2020-07-12] MEDS ORDERED: FAMOTIDINE 20 MG/2 ML VIAL IV STA (21:06)
--- NOTE | 2020-07-12 21:09 | ED ---
General Adult HPI - General Chief complaint: Shortness of Breath Stated complaint: SOB Time Seen by Provider: 07/12/20 20:43 Source: patient, family, RN notes reviewed Mode of arrival: wheelchair Limitations: no limitations - History of Present Illness Initial comments: Patient is a pleasant 64-year-old female presenting to the emergency department with nausea vomiting and dyspnea. Patient did have nausea and vomiting last miss dialysis on Sunday. Patient did make it on Sunday. Symptoms started again Sunday and were also present Sunday and today, Sunday. Patient still has nausea. Symptoms have been waxing and waning. Patient states she does feel somewhat short of breath since yesterday evening. Patient does have some leg swelling however this is chronic from lymphedema and unchanged. No chest pain. No fevers. - Related Data Home Medications Medication Instructions Recorded Confirmed Carvedilol 25 mg PO BID 09/22/15 07/12/20 Colchicine [Colcrys] See Taper PO DIRECTED PRN 06/27/16 07/12/20 Gabapentin [Neurontin] 300 mg PO DAILY PRN 06/27/16 07/12/20 Aspirin [Adult Low Dose Aspirin EC] 81 mg PO DAILY 09/16/16 07/12/20 amLODIPine [Norvasc] 10 mg PO HS 11/29/16 07/12/20 Insulin Glargine,Hum.rec.anlog 21 unit SQ HS 07/08/18 07/12/20 [Basaglar Kwikpen U-100] Furosemide [Lasix] 40 mg PO SUTUTHSA 04/15/19 07/12/20 Lidocaine-Prilocaine Cream [Emla 1 applic TOPICAL MOWEFR PRN 05/19/20 07/12/20 Cream 2.5%/2.5%] Ondansetron HCl [Zofran] 4 mg PO Q6H PRN 05/19/20 07/12/20 Calcium Acetate [Phoslo] 1,334 mg PO AC-BID 07/12/20 07/12/20 Calcium Acetate [Phoslo] 667 mg PO DAILY PRN 07/12/20 07/12/20 INSULIN ASPART (NovoLOG) [NovoLOG 10 unit SQ AC-TID 07/12/20 07/12/20 (formulary)] INSULIN ASPART (NovoLOG) [NovoLOG See Protocol SQ AC-TID 07/12/20 07/12/20 (formulary)] Allergies Allergy/AdvReac Type Severity Reaction Status Date / Time sulfamethoxazole AdvReac Nausea & Verified 07/12/20 22:05 [From Bactrim] Vomiting,dyspnea trimethoprim [From Bactrim] AdvReac Nausea & Verified 07/12/20 22:05 Vomiting,dyspnea Review of Systems ROS Statement: Those systems with pertinent positive or pertinent negative responses have been documented in the HPI. ROS Other: All systems not noted in ROS Statement are negative. Constitutional: Denies: fever, chills Eyes: Denies: eye pain ENT: Denies: ear pain Respiratory: Reports: dyspnea. Denies: cough Cardiovascular: Denies: chest pain Endocrine: Denies: fatigue Gastrointestinal: Reports: nausea, vomiting. Denies: abdominal pain Genitourinary: Denies: dysuria Musculoskeletal: Denies: back pain Skin: Denies: rash Neurological: Denies: weakness Past Medical History Past Medical History: Diabetes Mellitus, Hypertension, Renal Disease Additional Past Medical History / Comment(s): ESRD with hemodialysis M/W/F, IDDM type II, past DKA, neuropathy bilateral feet/legs and alittle in hands, "fast heart rate"-had cardiac ablation, lymphedema bilateral lower legs/feet, gout R knee, mineral bone disease, IBS, R sided Mustafa's palsey. History of Any Multi-Drug Resistant Organisms: None Reported Past Surgical History: Appendectomy, Cardiac Ablation, Section, Cholecystectomy, Tubal Ligation Additional Past Surgical History / Comment(s): bilateral cataract removal with lens implants, C-sections, bilateral benign breast biopsies, AV graft left arm done 06-23-16 for dialysis, colonoscopy. Past Anesthesia/Blood Transfusion Reactions: Motion Sickness, Postoperative Nausea & Vomiting (PONV) Past Psychological History: No Psychological Hx Reported Smoking Status: Never smoker Past Alcohol Use History: None Reported Past Drug Use History: None Reported - Past Family History Father Family Medical History: Cancer, Diabetes Mellitus Additional Family Medical History / Comment(s): Father had prostate cancer. Mother Family Medical History: Cancer Additional Family Medical History / Comment(s): Mother had breast cancer. General Exam Limitations: no limitations General appearance: alert, in no apparent distress Head exam: Present: normocephalic Eye exam: Present: normal appearance Neck exam: Present: normal inspection Respiratory exam: Present: normal lung sounds bilaterally Cardiovascular Exam: Present: regular rate, normal rhythm GI/Abdominal exam: Present: soft. Absent: tenderness Neurological exam: Present: alert Psychiatric exam: Present: normal affect, normal mood Skin exam: Present: normal color Course Vital Signs 07/12/20 07/12/20 07/12/20 20:35 21:06 21:18 Temperature 97.8 F Pulse Rate 60 59 L Respiratory 18 18 Rate Blood Pressure 192/77 O2 Sat by Pulse 98 99 Oximetry 07/12/20 07/12/20 21:29 21:30 Temperature Pulse Rate 59 L 59 L Respiratory 16 20 Rate Blood Pressure 162/70 O2 Sat by Pulse Oximetry EKG Findings - EKG Comments: EKG Findings:: Normal sinus rhythm 60. [place] 200. QRS 80. QT 546. QTc 546. Normal axis. Normal QRS. No acute ST change. Medical Decision Making - Medical Decision Making Patient reevaluated and updated. Dr. bullock has been paged for admission covering for Dr. Ingram. - Lab Data Result diagrams: 07/12/20 21:19 07/12/20 21:19 Lab Results 07/12/20 07/12/20 07/12/20 Range/Units 21:19 21:19 21:19 WBC 9.5 (3.8-10.6) k/uL RBC 3.36 L (3.80-5.40) m/uL Hgb 10.3 L (11.4-16.0) gm/dL Hct 32.6 L (34.0-46.0) % MCV 96.9 (80.0-100.0) fL MCH 30.6 (25.0-35.0) pg MCHC 31.5 (31.0-37.0) g/dL RDW 13.8 (11.5-15.5) % Plt Count 230 (150-450) k/uL Neutrophils % 80 % Lymphocytes % 12 % Monocytes % 5 % Eosinophils % 2 % Basophils % 1 % Neutrophils # 7.5 (1.3-7.7) k/uL Lymphocytes # 1.1 (1.0-4.8) k/uL Monocytes # 0.5 (0-1.0) k/uL Eosinophils # 0.2 (0-0.7) k/uL Basophils # 0.1 (0-0.2) k/uL PT 10.5 (9.0-12.0) sec INR 1.0 (<1.2) APTT 19.3 L (22.0-30.0) sec D-Dimer 1.01 H (<0.60) mg/L FEU Sodium 129 L (137-145) mmol/L Potassium 4.2 (3.5-5.1) mmol/L Chloride 90 L (98-107) mmol/L Carbon Dioxide 26 (22-30) mmol/L Anion Gap 13 mmol/L BUN 49 H (7-17) mg/dL Creatinine 10.66 H* (0.52-1.04) mg/dL Est GFR (CKD-EPI)AfAm 4 (>60 ml/min/1.73 sqM) Est GFR (CKD-EPI)NonAf 3 (>60 ml/min/1.73 sqM) Glucose 442 H (74-99) mg/dL Plasma Lactic Acid [place] (0.7-2.0) mmol/L Calcium 9.1 (8.4-10.2) mg/dL Total Bilirubin 1.2 (0.2-1.3) mg/dL AST 16 (14-36) U/L ALT 14 (4-34) U/L Alkaline Phosphatase 104 (38-126) U/L Creatine Kinase 83 (30-135) U/L Troponin I (0.000-0.034) ng/mL NT-Pro-B Natriuret Pep pg/mL Total Protein 7.6 (6.3-8.2) g/dL Albumin 4.2 (3.5-5.0) g/dL 07/12/20 07/12/20 07/12/20 Range/Units 21:19 21:19 21:19 WBC (3.8-10.6) k/uL RBC (3.80-5.40) m/uL Hgb (11.4-16.0) gm/dL Hct (34.0-46.0) % MCV (80.0-100.0) fL MCH (25.0-35.0) pg MCHC (31.0-37.0) g/dL RDW (11.5-15.5) % Plt Count (150-450) k/uL Neutrophils % % Lymphocytes % % Monocytes % % Eosinophils % % Basophils % % Neutrophils # (1.3-7.7) k/uL Lymphocytes # (1.0-4.8) k/uL Monocytes # (0-1.0) k/uL Eosinophils # (0-0.7) k/uL Basophils # (0-0.2) k/uL PT (9.0-12.0) sec INR (<1.2) APTT (22.0-30.0) sec D-Dimer (<0.60) mg/L FEU Sodium (137-145) mmol/L Potassium (3.5-5.1) mmol/L Chloride (98-107) mmol/L Carbon Dioxide (22-30) mmol/L Anion Gap mmol/L BUN (7-17) mg/dL Creatinine (0.52-1.04) mg/dL Est GFR (CKD-EPI)AfAm (>60 ml/min/1.73 sqM) Est GFR (CKD-EPI)NonAf (>60 ml/min/1.73 sqM) Glucose (74-99) mg/dL Plasma Lactic Acid [place] 1.7 (0.7-2.0) mmol/L Calcium (8.4-10.2) mg/dL Total Bilirubin (0.2-1.3) mg/dL AST (14-36) U/L ALT (4-34) U/L Alkaline Phosphatase (38-126) U/L Creatine Kinase (30-135) U/L Troponin I 0.042 H* (0.000-0.034) ng/mL NT-Pro-B Natriuret Pep 53594 pg/mL Total Protein (6.3-8.2) g/dL Albumin (3.5-5.0) g/dL - Radiology Data Radiology results: image reviewed (Chest x-ray does show mild pulmonary interstitial edema and small effusions, or failure possible. Interstitial density increased compared to old exam.) Disposition Clinical Impression: Congestive heart failure Disposition: ADMITTED IP TO THIS HOSP Is patient prescribed a controlled substance at d/c from ED?: No Referrals: Piedad Ingram III, MD [Primary Care Provider] - 1-2 days Decision Time: 22:50
[2020-07-12 21:52] LABS: Basophils # (A) 0.1 k/uL (0-0.2); Basophils % (A) 1 %; Eosinophils # (A) 0.2 k/uL (0-0.7); Eosinophils % (A) 2 %; HCT 32.6 % (34.0-46.0); HGB 10.3 gm/dL (11.4-16.0); Lymphocytes # (A) 1.1 k/uL (1.0-4.8); Lymphocytes % (A) 12 %; MCH 30.6 pg (25.0-35.0); MCHC 31.5 g/dL (31.0-37.0); MCV 96.9 fL (80.0-100.0); Mean Platelet Volume 8.6; Monocytes # (A) 0.5 k/uL (0-1.0); Monocytes % (A) 5 %; Neutrophils # (A) 7.5 k/uL (1.3-7.7); Neutrophils % (A) 80 %; Platelet Count 230 k/uL (150-450); RBC 3.36 m/uL (3.80-5.40); RDW 13.8 % (11.5-15.5); WBC 9.5 k/uL (3.8-10.6)
[2020-07-12 21:59] LABS: Albumin 4.2 g/dL (3.5-5.0); Calcium 9.1 mg/dL (8.4-10.2); Potassium 4.2 mmol/L (3.5-5.1); Total Bilirubin 1.2 mg/dL (0.2-1.3); Total Protein 7.6 g/dL (6.3-8.2)
[2020-07-12 22:04] LABS: Prothrombin Time 10.5 sec (9.0-12.0)
--- NOTE | 2020-07-12 22:04 | XR ---
EXAMINATION TYPE: XR chest 2V DATE OF EXAM: 07/12/2020 COMPARISON: 04/16/2019 HISTORY: Difficulty breathing TECHNIQUE: FINDINGS: Heart is enlarged. There is coarse pulmonary interstitial infiltrates. There are chest lead s. There is very slight blunting of the costophrenic angles. IMPRESSION: Mild pulmonary interstitial edema with small pleural effusions. Mild heart failure is pos sible. Interstitial density increased compared to old exam.
[2020-07-12 22:22] LABS: D-Dimer 1.01 mg/L FEU (<0.60); Partial Thromboplastin Time 19.3 sec (22.0-30.0)
[2020-07-12] MEDS ORDERED: ASPIRIN 325 MG TAB PO STA (22:50)
[2020-07-12] MEDS ORDERED: FUROSEMIDE 10 MG/ML 4 ML VIAL IV STA (22:53)
[2020-07-12] MEDS ORDERED: ENOXAPARIN 80 MG/0.8 ML SYRINGE SQ SCH (23:00)
[2020-07-12] MEDS: NITROGLYCERIN OINT 1 INCH/GM PACKET TOPICAL SCH (23:11)
[2020-07-12] MEDS ORDERED: ENOXAPARIN 80 MG/0.8 ML SYRINGE SQ ONE (23:15)
[2020-07-13 00:09] LABS: Glucose,Whole Blood 442 mg/dL (75-99)
[2020-07-13] MEDS ORDERED: INSULIN REGULAR 100 UNIT/ML VIAL IV ONE (00:14)
[2020-07-13 06:28] LABS: Glucose,Whole Blood 263 mg/dL (75-99)
[2020-07-13] MEDS: INSULIN ASPART (NovoLOG) 100 UNIT/ML VIAL SQ SCH ×7 (06:43→20:54)
--- NOTE | 2020-07-13 08:42 | NM ---
EXAMINATION TYPE: NM pul vent and perfuse DATE OF EXAM: 07/13/2020 COMPARISON: Correlation 07/12/2020 radiograph HISTORY: 64-year-old female shortness breath, dyspnea TECHNIQUE: Utilizing inhalation of 65.5 mCi Tc 99m DTPA aerosol and intravenous injection of 5.14 mC i of Tc 99m MAA, ventilation and perfusion images are acquired post injection in multiple projections . FINDINGS: Normal radiotracer distribution is noted in the lungs. There is some clumping of inhaled tracer withi n the central airways. There is no evidence of mismatched defects. IMPRESSION: Very low probability for pulmonary embolus. Some clumping of tracer in the central airways can be see n with COPD. Clinically correlate.
[2020-07-13] MEDS ORDERED: GABAPENTIN 300 MG CAP PO PRN (09:23)
[2020-07-13] MEDS ORDERED: CALCIUM ACETATE 667 MG TAB PO PRN (09:23)
[2020-07-13] MEDS ORDERED: ONDANSETRON 4 MG TAB PO PRN (09:23)
[2020-07-13] MEDS ORDERED: LIDOCAINE-PRILOCAINE 2.5-2.5% CREAM 5 GM TUBE TOPICAL PRN (09:23)
[2020-07-13] MEDS ORDERED: ONDANSETRON 4 MG/2 ML VIAL IVP PRN (09:25)
[2020-07-13] MEDS: FUROSEMIDE 40 MG TAB PO SCH (09:45)
[2020-07-13] MEDS: HYDROcodone/APAP 7.5-325MG 1 EACH TAB PO PRN ×2 (09:45→20:16)
[2020-07-13] MEDS: NITROGLYCERIN OINT 1 INCH/GM PACKET TOPICAL SCH ×5 (09:46→20:16)
--- NOTE | 2020-07-13 10:45 | P.HPIM ---
History of Present Illness 1-year-old female presented with nausea vomiting, and shortness of breath. Patient denied any fever chills patient denied any abdominal pain patient does have occasional diarrhea although that's not initiate this time. Patient has is single nausea episodes on and off since has a renal failure and dialysis. Patient did miss dialysis yesterday and once again on Sunday. Patient is Sunday, Sunday hemodialysis. Patient is a short of breath and patient chest x-ray did show pulmonary edema patient barely makes any urine. Patient does have anasarca. Review of Systems REVIEW OF SYSTEMS: CONSTITUTIONAL: No fever, no malaise, no fatigue. HEENT: No recent visual problems or hearing problems. Denied any sore throat. CARDIOVASCULAR: no palpitations, no syncope. PULMONARY: no cough, no hemoptysis. GASTROINTESTINAL: No diarrhea, no vomiting, no abdominal pain. NEUROLOGICAL: No headaches, no weakness, no numbness. HEMATOLOGICAL: Denies any bleeding or petechiae. GENITOURINARY: Denies any burning micturition, frequency, or urgency. MUSCULOSKELETAL/RHEUMATOLOGICAL: Denies any joint pain, swelling, or any muscle pain. ENDOCRINE: Denies any polyuria or polydipsia. The rest of the 14-point review of systems is negative. Past Medical History Past Medical History: Diabetes Mellitus, Hypertension, Renal Disease Additional Past Medical History / Comment(s): ESRD with hemodialysis M/W/F, IDDM type II, past DKA, neuropathy bilateral feet/legs and alittle in hands, "fast heart rate"-had cardiac ablation, lymphedema bilateral lower legs/feet, gout R knee, mineral bone disease, IBS, R sided Mustafa's palsey. History of Any Multi-Drug Resistant Organisms: None Reported Past Surgical History: Appendectomy, Cardiac Ablation, Section, Cholecystectomy, Tubal Ligation Additional Past Surgical History / Comment(s): bilateral cataract removal with lens implants, C-sections, bilateral benign breast biopsies, AV graft left arm done 06-23-16 for dialysis, colonoscopy. Past Anesthesia/Blood Transfusion Reactions: Motion Sickness, Postoperative Nausea & Vomiting (PONV) Past Psychological History: No Psychological Hx Reported Additional Psychological History / Comment(s): Pt resides with her spouse. She is independent. She uses a walker. She drives. She has a nebulizer. Smoking Status: Never smoker Past Alcohol Use History: None Reported Past Drug Use History: None Reported - Past Family History Father Family Medical History: Cancer, Diabetes Mellitus Additional Family Medical History / Comment(s): Father had prostate cancer. Mother Family Medical History: Cancer Additional Family Medical History / Comment(s): Mother had breast cancer. Medications and Allergies Home Medications Medication Instructions Recorded Confirmed Type Carvedilol 25 mg PO BID 09/22/15 07/12/20 History Colchicine [Colcrys] See Taper PO DIRECTED PRN 06/27/16 07/12/20 History Gabapentin [Neurontin] 300 mg PO DAILY PRN 06/27/16 07/12/20 History Aspirin [Adult Low Dose Aspirin EC] 81 mg PO DAILY 09/16/16 07/12/20 History amLODIPine [Norvasc] 10 mg PO HS 11/29/16 07/12/20 History Insulin Glargine,Hum.rec.anlog 21 unit SQ HS 07/08/18 07/12/20 History [Basaglar Kwikpen U-100] Furosemide [Lasix] 40 mg PO SUTUTHSA 04/15/19 07/12/20 History Lidocaine-Prilocaine Cream [Emla 1 applic TOPICAL MOWEFR PRN 05/19/20 07/12/20 History Cream 2.5%/2.5%] Ondansetron HCl [Zofran] 4 mg PO Q8H PRN 05/19/20 07/13/20 History Calcium Acetate [Phoslo] 1,334 mg PO AC-BID 07/12/20 07/12/20 History Calcium Acetate [Phoslo] 667 mg PO DAILY PRN 07/12/20 07/12/20 History INSULIN ASPART (NovoLOG) [NovoLOG 10 unit SQ AC-TID 07/12/20 07/12/20 History (formulary)] INSULIN ASPART (NovoLOG) [NovoLOG See Protocol SQ AC-TID 07/12/20 07/12/20 History (formulary)] HYDROcodone/APAP 7.5-325MG [[place] 1 tablet PO BID PRN 07/13/20 07/13/20 History 7.5-325] Allergies Allergy/AdvReac Type Severity Reaction Status Date / Time sulfamethoxazole AdvReac Nausea & Verified 07/12/20 22:05 [From Bactrim] Vomiting,dyspnea trimethoprim [From Bactrim] AdvReac Nausea & Verified 07/12/20 22:05 Vomiting,dyspnea Physical Exam Vitals: Vital Signs Temp Pulse Pulse Resp BP BP Pulse Ox 07/13/20 08:25 98.8 F 53 L 18 135/62 98 07/13/20 03:08 56 L 18 154/65 97 07/13/20 03:07 60 19 07/13/20 00:48 97.6 F 60 19 155/70 99 07/13/20 00:00 60 19 07/12/20 23:32 98.2 F 60 18 142/63 98 07/12/20 23:20 60 18 151/68 99 07/12/20 21:30 59 L 20 162/70 07/12/20 21:29 59 L 16 07/12/20 21:18 59 L 18 07/12/20 21:06 99 07/12/20 20:35 97.8 F 60 18 192/77 98 Intake and Output 07/12/20 07/13/20 07/13/20 22:59 06:59 14:59 Other: # Voids 2 Weight 83.915 kg 103 kg PHYSICAL EXAMINATION: GENERAL: The patient is alert and oriented x3, not in any acute distress. Well developed, well nourished. Does have anasarca HEENT: Pupils are round and equally reacting to light. EOMI. No scleral icterus. No conjunctival pallor. Normocephalic, atraumatic. No pharyngeal erythema. No thyromegaly. CARDIOVASCULAR: S1 and S2 present. No murmurs, rubs, or gallops. PULMONARY: Chest is clear to auscultation, no wheezing or crackles. ABDOMEN: Soft, nontender, nondistended, normoactive bowel sounds. No palpable organomegaly. MUSCULOSKELETAL: No joint swelling or deformity. EXTREMITIES: No cyanosis, clubbing, she does have bilateral pedal edema that is some skin breakdown but no infection in both legs. NEUROLOGICAL: Gross neurological examination did not reveal any focal deficits. SKIN: Skin breakdown as mentioned above Results CBC & Chem 7: 07/12/20 21:19 07/12/20 21:19 Labs: Abnormal Lab Results - Last 24 Hours (Table) 07/12/20 07/12/20 07/12/20 Range/Units 21:19 21:19 21:19 RBC 3.36 L (3.80-5.40) m/uL Hgb 10.3 L (11.4-16.0) gm/dL Hct 32.6 L (34.0-46.0) % APTT 19.3 L (22.0-30.0) sec D-Dimer 1.01 H (<0.60) mg/L FEU Sodium 129 L (137-145) mmol/L Chloride 90 L (98-107) mmol/L BUN 49 H (7-17) mg/dL Creatinine 10.66 H* (0.52-1.04) mg/dL Glucose 442 H (74-99) mg/dL POC Glucose (mg/dL) (75-99) mg/dL Troponin I (0.000-0.034) ng/mL 07/12/20 07/13/20 07/13/20 Range/Units 21:19 00:00 06:26 RBC (3.80-5.40) m/uL Hgb (11.4-16.0) gm/dL Hct (34.0-46.0) % APTT (22.0-30.0) sec D-Dimer (<0.60) mg/L FEU Sodium (137-145) mmol/L Chloride (98-107) mmol/L BUN (7-17) mg/dL Creatinine (0.52-1.04) mg/dL Glucose (74-99) mg/dL POC Glucose (mg/dL) 442 H 263 H (75-99) mg/dL Troponin I 0.042 H* (0.000-0.034) ng/mL Thrombosis Risk Factor Assmnt - Choose All That Apply Each Factor Represents 1 point: Heart failure (<1month), Swollen legs (current) Other Risk Factors: Yes Each Risk Factor Represents 2 Points: Age 61-74 years Other congenital or acquired thrombophilia - If yes, enter type in comment: No Thrombosis Risk Factor Assessment Total Risk Factor Score: 4 Thrombosis Risk Factor Assessment Level: Moderate Risk Assessment and Plan Plan: -Shadows of breath : Secondary to pulmonary edema which is again secondary to missing hemodialysis, nephrology was consulted patient probably will need hemodialysis today. Patient had a pulmonary perfusion imaging which showed very low probability for PE -Severe nausea: Secondary to renal failure, patient will be continued on Zofran and Pepcid. Hopefully this will improve with the hemodialysis. -And stage renal disease: Patient will need hemodialysis today usually Sunday schedule -Hyponatremia: Expected to improve with hemodialysis secondary to renal failure -Mildly elevated troponin without any chest pain history: Secondary to renal failure -Type 2 diabetes mellitus: Uncontrolled elevated blood sugars: Patient will be resumed on her home regimen and titrate the insulin depending on her blood sugars. -Hypertension -Metabolic bone disease from renal failure -DVT prophylaxis with subcutaneous heparin from tomorrow as patient received high-dose Lovenox in spite of renal failure.
[2020-07-13 11:48] LABS: Glucose,Whole Blood 235 mg/dL (75-99)
--- NOTE | 2020-07-13 14:13 | P.CRDCN ---
History of Present Illness Consult date: 07/13/20 Consult reason: congestive heart failure Chief complaint: Nausea and vomiting, shortness of breath History of present illness: This is a pleasant 64-year-old female who follows with Dr. Harrison in the office. She has a known history of end-stage renal disease on dialysis, hypertension, hyperlipidemia, diabetes. She presented to the hospital with symptoms of nausea and vomiting with associated shortness of breath. She missed her dialysis last Sunday, underwent dialysis Sunday, states that the symptoms have been going off and on for approximately one week duration. Her chest x-ray on presentation here did show some mild pulmonary interstitial edema with small effusions. EKG showed normal sinus rhythm with prolonged QT, no acute changes noted. The patient did have an echocardiogram with Doppler study performed in March 2019 which revealed a normal left ventricular systolic function. Her blood pressure 155/70 with a heart rate in the 50s, respirations 18. White blood cell count 9.5, hemoglobin 10.3, platelet count 2:30, d-dimer 1.01, sodium 129, potassium 4.2, BUN 49, creatinine 1.0. Troponin 0.012, 0.042. BNP level XLII,DCC. Patient was given a one-time dose of IV Lasix, she does make some urine however very faint amounts. We will obtain an echocardiogram with Doppler study. We will also decrease the aspirin 81 mg daily. Past Medical History Past Medical History: Diabetes Mellitus, Hypertension, Renal Disease Additional Past Medical History / Comment(s): ESRD with hemodialysis M/W/F, IDDM type II, past DKA, neuropathy bilateral feet/legs and alittle in hands, "fast heart rate"-had cardiac ablation, lymphedema bilateral lower legs/feet, gout R knee, mineral bone disease, IBS, R sided Mustafa's palsey. History of Any Multi-Drug Resistant Organisms: None Reported Past Surgical History: Appendectomy, Cardiac Ablation, Section, Cholecystectomy, Tubal Ligation Additional Past Surgical History / Comment(s): bilateral cataract removal with lens implants, C-sections, bilateral benign breast biopsies, AV graft left arm done 06-23-16 for dialysis, colonoscopy. Past Anesthesia/Blood Transfusion Reactions: Motion Sickness, Postoperative Nausea & Vomiting (PONV) Past Psychological History: No Psychological Hx Reported Additional Psychological History / Comment(s): Pt resides with her spouse. She is independent. She uses a walker. She drives. She has a nebulizer. Smoking Status: Never smoker Past Alcohol Use History: None Reported Past Drug Use History: None Reported - Past Family History Father Family Medical History: Cancer, Diabetes Mellitus Additional Family Medical History / Comment(s): Father had prostate cancer. Mother Family Medical History: Cancer Additional Family Medical History / Comment(s): Mother had breast cancer. Medications and Allergies Home Medications Medication Instructions Recorded Confirmed Type Carvedilol 25 mg PO BID 09/22/15 07/12/20 History Colchicine [Colcrys] See Taper PO DIRECTED PRN 06/27/16 07/12/20 History Gabapentin [Neurontin] 300 mg PO DAILY PRN 06/27/16 07/12/20 History Aspirin [Adult Low Dose Aspirin EC] 81 mg PO DAILY 09/16/16 07/12/20 History amLODIPine [Norvasc] 10 mg PO HS 11/29/16 07/12/20 History Insulin Glargine,Hum.rec.anlog 21 unit SQ HS 07/08/18 07/12/20 History [Basaglar Kwikpen U-100] Furosemide [Lasix] 40 mg PO SUTUTHSA 04/15/19 07/12/20 History Lidocaine-Prilocaine Cream [Emla 1 applic TOPICAL MOWEFR PRN 05/19/20 07/12/20 History Cream 2.5%/2.5%] Ondansetron HCl [Zofran] 4 mg PO Q8H PRN 05/19/20 07/13/20 History Calcium Acetate [Phoslo] 1,334 mg PO AC-BID 07/12/20 07/12/20 History Calcium Acetate [Phoslo] 667 mg PO DAILY PRN 07/12/20 07/12/20 History INSULIN ASPART (NovoLOG) [NovoLOG 10 unit SQ AC-TID 07/12/20 07/12/20 History (formulary)] INSULIN ASPART (NovoLOG) [NovoLOG See Protocol SQ AC-TID 07/12/20 07/12/20 History (formulary)] HYDROcodone/APAP 7.5-325MG [[place] 1 tablet PO BID PRN 07/13/20 07/13/20 History 7.5-325] Allergies Allergy/AdvReac Type Severity Reaction Status Date / Time sulfamethoxazole AdvReac Nausea & Verified 07/12/20 22:05 [From Bactrim] Vomiting,dyspnea trimethoprim [From Bactrim] AdvReac Nausea & Verified 07/12/20 22:05 Vomiting,dyspnea Physical Exam Vitals: Vital Signs Temp Pulse Pulse Resp BP BP Pulse Ox 07/13/20 12:05 48 L 18 114/50 98 07/13/20 08:25 98.8 F 53 L 18 135/62 98 07/13/20 03:08 56 L 18 154/65 97 07/13/20 03:07 60 19 07/13/20 00:48 97.6 F 60 19 155/70 99 07/13/20 00:00 60 19 07/12/20 23:32 98.2 F 60 18 142/63 98 07/12/20 23:20 60 18 151/68 99 07/12/20 21:30 59 L 20 162/70 07/12/20 21:29 59 L 16 07/12/20 21:18 59 L 18 07/12/20 21:06 99 07/12/20 20:35 97.8 F 60 18 192/77 98 Intake and Output 07/12/20 07/13/20 07/13/20 22:59 06:59 14:59 Other: # Voids 2 Weight 83.915 kg 103 kg PHYSICAL EXAMINATION: GENERAL: 64-year-old female in no acute distress at the time of my examination HEENT: Head is atraumatic, normocephalic. Pupils equal, round. Sclera anicteric. Conjunctiva are clear. Mucous membranes of the mouth are moist. Neck is supple. There is elevated jugular venous pressure. No carotid bruit is heard. HEART EXAMINATION: Heart S1 and S2 with soft systolic murmur is heard CHEST EXAMINATION: On's reveal rales to the bases bilaterally ABDOMEN: Soft, nontender. Bowel sounds are heard. No organomegaly noted. EXTREMITIES: 2+ peripheral pulses with 1-2+ evidence of peripheral edema and no calf tenderness noted. NEUROLOGIC patient is awake, alert and oriented 3 . . Results 07/12/20 21:19 07/12/20 21:19 Cardiac Enzymes 07/12/20 07/12/20 Range/Units 21:19 21:19 AST 16 (14-36) U/L Troponin I 0.042 H* (0.000-0.034) ng/mL Coagulation 07/12/20 Range/Units 21:19 PT 10.5 (9.0-12.0) sec APTT 19.3 L (22.0-30.0) sec CBC 07/12/20 Range/Units 21:19 WBC 9.5 (3.8-10.6) k/uL RBC 3.36 L (3.80-5.40) m/uL Hgb 10.3 L (11.4-16.0) gm/dL Hct 32.6 L (34.0-46.0) % Plt Count 230 (150-450) k/uL Comprehensive Metabolic Panel 07/12/20 Range/Units 21:19 Sodium 129 L (137-145) mmol/L Potassium 4.2 (3.5-5.1) mmol/L Chloride 90 L (98-107) mmol/L Carbon Dioxide 26 (22-30) mmol/L BUN 49 H (7-17) mg/dL Creatinine 10.66 H* (0.52-1.04) mg/dL Glucose 442 H (74-99) mg/dL Calcium 9.1 (8.4-10.2) mg/dL AST 16 (14-36) U/L ALT 14 (4-34) U/L Alkaline Phosphatase 104 (38-126) U/L Total Protein 7.6 (6.3-8.2) g/dL Albumin 4.2 (3.5-5.0) g/dL Current Medications Generic Name Dose Route Start Last Admin Trade Name Freq PRN Reason Stop Dose Admin Hydrocodone Bitart/Acetaminophen 1 each 07/13/20 09:23 07/13/20 09:45 Hydrocodone/Apap 7.5-325mg 1 Each Tab PO 1 each BID PRN Administration Pain Amlodipine Besylate 10 mg 07/13/20 21:00 Amlodipine 10 Mg Tab PO HS ELIF Aspirin 81 mg 07/14/20 09:00 Aspirin 81 Mg PO DAILY ELIF Calcium Acetate 1,334 mg 07/13/20 17:30 Calcium Acetate 667 Mg Tab PO AC-BID ELIF Calcium Acetate 667 mg 07/13/20 09:23 Calcium Acetate 667 Mg Tab PO DAILY PRN with a snack Carvedilol 25 mg 07/13/20 17:30 Carvedilol 12.5 Mg Tab PO BID-W/MEALS [facility] Famotidine 20 mg 07/14/20 09:00 Famotidine 20 Mg Tab PO DAILY [facility] Furosemide 40 mg 07/13/20 09:30 07/13/20 09:45 Furosemide 40 Mg Tab PO 40 mg SUTUTHSA [facility] Administration Gabapentin 300 mg 07/13/20 09:23 Gabapentin 300 Mg Cap PO DAILY PRN NERVE PAIN Heparin Sodium (Porcine) 5,000 unit 07/14/20 00:00 Heparin Sodium,Porcine 5,000 Unit/Ml 1 Ml Vial SQ Q8HR [facility] Insulin Aspart 0 unit 07/13/20 07:30 07/13/20 12:24 Insulin Aspart (Novolog) 100 Unit/Ml Vial SQ 5 unit ACHS [facility] Administration Protocol Insulin Aspart 10 unit 07/13/20 12:30 07/13/20 12:24 Insulin Aspart (Novolog) 100 Unit/Ml Vial SQ 10 unit AC-TID [facility] Administration Insulin Detemir 21 unit 07/13/20 21:00 Insulin Detemir (Levemir) 100 Unit/Ml Syr SQ HS [facility] Lidocaine/Prilocaine 1 applic 07/13/20 09:23 Lidocaine-Prilocaine 2.5-2.5% Cream 5 Gm Tube TOPICAL MOWEFR PRN DIALYIS DAYS Nitroglycerin 1 inch 07/12/20 23:00 07/13/20 12:24 Nitroglycerin Oint 1 Inch/Gm Packet TOPICAL Not Given QID [facility] Ondansetron HCl 4 mg 07/13/20 09:25 Ondansetron 4 Mg/2 Ml Vial IVP Q6HR PRN Nausea And Vomiting Sodium Chloride 10 ml 07/13/20 09:00 07/13/20 09:48 Sodium Chloride 0.9% Flush 10 Ml Syringe IV 10 ml BID [facility] Administration Intake and Output 07/12/20 07/13/20 07/13/20 22:59 06:59 14:59 Other: # Voids 2 Weight 83.915 kg 103 kg 07/12/20 21:19 07/12/20 21:19 EKG Interpretations (text) EKG shows normal sinus rhythm with prolonged QT, no acute changes noted Assessment and Plan Plan: Assessment and plan #1 diastolic congestive heart failure acute on chronic #2 end-stage renal disease on hemodialysis #3 diabetes #4 hypertension #5 hyperlipidemia #6 elevated d-dimer #7 abnormality in troponin, not consistent with acute coronary syndrome, likely secondary to chronic renal failure Plan We will obtain a repeat echocardiogram with Doppler study, decrease aspirin 81 mg daily. will undergo dialysis, diuretic management as per nephrology. A VQ scan of the chest is also been requested to rule out the possibility of pulmonary embolism. DNP note has been reviewed, I agree with a documented findings and plan of care. Patient was seen and examined.
[2020-07-13 14:19] VITALS: BMI 40.2
[2020-07-13] MEDS ORDERED: EPINEPHrine 10 ML SYRINGE (0.1 MG/ML) ONE (15:10)
[2020-07-13] MEDS ORDERED: SODIUM BICARB 8.4% 50 ML SYR (1 MEQ/ML) ONE ×2 (15:10→15:27)
[2020-07-13] MEDS ORDERED: CALCIUM CHLORIDE 100 MG/ML 10 ML SYRINGE ONE (15:10)
[2020-07-13 15:34] LABS: Glucose,Whole Blood 77 mg/dL (75-99)
[2020-07-13 15:46] LABS: ABG Base Excess 2.3 mmol/L; ABG HCO3 27 mmol/L (21-25); ABG Oxygen Saturation 99.3 % (94-97); ABG PCO2 43 mmHg (35-45); ABG PH 7.41 (7.35-7.45); ABG PO2 299 mmHg (83-108); ABG TCO2 28 mmol/L (19-24); Allen Test Performed? Yes
[2020-07-13 15:47] LABS: INR 1.2 (<1.2); Prothrombin Time 11.9 sec (9.0-12.0)
[2020-07-13 15:51] LABS: Albumin 3.8 g/dL (3.5-5.0); Calcium 10.3 mg/dL (8.4-10.2); Magnesium 2.6 mg/dL (1.6-2.3); Phosphorus 3.7 mg/dL (2.5-4.5); Potassium 3.2 mmol/L (3.5-5.1)
[2020-07-13 15:55] LABS: Glucose,Whole Blood 83 mg/dL (75-99)
--- NOTE | 2020-07-13 16:21 | P.EN ---
Code Blue Note: Arrived to find CPR in progress and one amp of EPI given. Patient had been receiving HD for approx 1.5 Hrs developed bradycardia with agonal respirations, and then quickly went into PEA. Her fluids were given back from HD. She given a total of 2 rounds of epinephrine, 1 amp of sodium bicarb, and calcium gluconate and return of spontaneous circulation- these were given through her HD access as she lost IV access. She had a blood pressure of 181/101 at the time of ROSC She was noted to have either sinus bradycardia versus junctional rhythm on the monitor. She regained consciousness and was awake and talking. Critical care was notified and ordered one additional amp of sodium bicarb. Blood work was drawn. She was transferred to the ICU. ABG obtained and within normal. Patient was awake and alert and following commands. Dr. Campos was contacted and arrived at bedside to place central line. Dr. Martinez notified and aware of code. D/W HD tech and apparently patients was receiving HD and then had to go to the bathroom, was unhooked for 45 mins, came back to bed and was restarted on HD and then started to feel light headed and not well and then coded. Total down time less than 10 minutes. A total of 60 minutes was spent on the complex care of this patient.
--- NOTE | 2020-07-13 16:43 | XR ---
EXAMINATION TYPE: XR chest 1V portable DATE OF EXAM: 07/13/2020 COMPARISON: Yesterday HISTORY: Short of breath TECHNIQUE: Single view FINDINGS: There is right jugular catheter with tip in the superior vena cava. There is some mild pulm onary interstitial edema. Heart is enlarged. There are no hilar masses. There are chest leads. IMPRESSION: There is mild pulmonary interstitial edema unchanged compared to yesterday. Mild heart fa ilure is possible.
[2020-07-13 16:50] LABS: Amylase 35 U/L (30-110)
[2020-07-13] MEDS: carvediloL 12.5 MG TAB PO SCH (16:56)
[2020-07-13] MEDS: CALCIUM ACETATE 667 MG TAB PO SCH (16:56)
--- NOTE | 2020-07-13 17:08 | ECHOF ---
Referral Reason:Heart Failure MEASUREMENTS -------- HEIGHT: 160.0 cm WEIGHT: 103.0 kg BP: 154/65 IVSd: 1.5 cm (0.6 - 1.1) LVIDd: 4.1 cm (3.9 - 5.3) LVPWd: 1.4 cm (0.6 - 1.1) EDV(Teich): 75 ml IVSs: 1.6 cm LVIDs: 3.5 cm LVPWs: 1.4 cm %IVS Thck: 6 % ESV(Teich): 51 ml EF(Teich): 32 % %FS: 15 % SV(Teich): 24 ml LA Diam: 4.8 cm (2.7 - 3.8) RVIDd: 3.8 cm (< 3.3) LALs A4C: 5.8 cm LAAs A4C: 21.3 cm LAESV A-L A4C: 66 ml LAESV MOD A4C: 62 ml LALs A2C: 5.7 cm LAAs A2C: 25.0 cm LAESV A-L A2C: 94 ml LAESV MOD A2C: 88 ml LAESV(A-L): 80 ml LAESV Index (A-L): 39.13 ml/m Ao Diam: 2.7 cm (2.0 - 3.7) LA Diam: 4.4 cm (2.7 - 3.8) AV Cusp: 1.5 cm (1.5 - 2.6) EPSS: 0.3 cm MV E [place]: 0.55 m/s MV DecT: 242 ms MV Dec [place]: 2.3 m/s MV A [place]: 0.67 m/s MV E/A Ratio: 0.82 MV PHT: 70 ms TR Vmax: 3.07 m/s TR maxP.74 mmHg RAP: 5.00 mmHg RVSP: 42.74 mmHg MV EF SLOPE: 22.96 mm/s (70 - 150) MV EXCURSION: 11.45 mm (> 18.000) FINDINGS -------- The left ventricular size is normal. There is mild concentric left ventricular hypertrophy. Overa ll left ventricular systolic function is low-normal with, an EF between 50 - 55 %. Increased Lap Gr francine II Diastolic Dysfunction. The right ventricle is mildly enlarged. The left atrium is markedly dilated. LA is severely dilated >40 ml/m2 The right atrial size is normal. 5.0mg OF [place] UTLIZED: 2 OR MORE WALL SEGMENTS NOT VISUALIZED. The aortic valve is trileaflet, and appears structurally normal. No aortic stenosis or regurgitation. Mild mitral regurgitation is present. Mild tricuspid regurgitation present. There is mild to moderate pulmonary hypertension. Trace/mild (physiologic) pulmonic regurgitation. The aortic root size is normal. There is a trivial pericardial effusion present. CONCLUSIONS -------- 1. The left ventricular size is normal. 2. There is mild concentric left ventricular hypertrophy. 3. Overall left ventricular systolic function is low-normal with, an EF between 50 - 55 %. 4. Increased Lap Grade II Diastolic Dysfunction. 5. The right ventricle is mildly enlarged. 6. The left atrium is markedly dilated. 7. LA is severely dilated >40 ml/m2 8. The right atrial size is normal. 9. 5.0mg OF [place] UTLIZED: 2 OR MORE WALL SEGMENTS NOT VISUALIZED. 10. Mild mitral regurgitation is present. 11. Mild tricuspid regurgitation present. 12. There is mild to moderate pulmonary hypertension. 13. Trace/mild (physiologic) pulmonic regurgitation. 14. There is a trivial pericardial effusion present. BUSINESS CONTINUITY ANALYST: Veena Luna RDCS
--- NOTE | 2020-07-13 17:27 | CONS ---
CONSULTATION REASON FOR CONSULT: End-stage renal disease. HISTORY OF PRESENT ILLNESS: The patient is a 64-year-old female with end-stage renal disease who was seen this morning. Patient presented to the hospital with complaints of weakness, not feeling well. She was also short of breath. The patient is normally maintained on a Sunday, Sunday, Sunday schedule for dialysis. She stated that she did not go for her treatment yesterday and it was rescheduled for today. The patient did have some nausea and vomiting as well. She felt that she could not eat as usual. There is no history of fever or chills. No diarrhea. No abdominal pain. The patient denied any chest pains. She did admit to missing dialysis last week as well, but patient did have her treatment on Sunday and then did not come in on Sunday, which was yesterday. Chest x-ray shows evidence of pulmonary vascular congestion. PAST MEDICAL HISTORY: End-stage renal disease, type 2 diabetes, neuropathy, coronary artery disease, lymphedema, chronic, history of gout, CKD mineral bone disorder, history of Mustafa's palsy, IBS, cardiac arrhythmia with history of cardiac ablation. PAST SURGICAL HISTORY: Appendectomy, , cardiac ablation, cholecystectomy, tubal ligation, AV graft, colonoscopy, bilateral breast biopsies, lens implants, C-sections. SOCIAL HISTORY: Negative for smoking, drug abuse or alcohol abuse. MEDICATIONS: Medications prior to admission included carvedilol, colchicine, Neurontin, Norvasc, Lasix, Zofran, PhosLo, insulin, Shelton. ALLERGIES: ALLERGIES include BACTRIM, which causes nausea and vomiting. REVIEW OF SYSTEMS: As per HPI. Other systems negative. PHYSICAL EXAMINATION: Patient is comfortable, awake, alert, oriented x3, not in any acute distress. Blood pressure was this morning 135/62, heart rate 53 per minute. Patient is afebrile. EXAMINATION OF THE HEART: S1 and S2. EXAMINATION OF LUNGS: Bilateral breath sounds are heard. ABDOMEN: Soft, non-tender. Examination of lower extremities shows edema 2+ bilaterally with chronic skin changes. PUTTY PATCHER exam is grossly intact. LABS: Labs show hemoglobin 10.3, sodium 129, potassium 4.2, BUN 49, serum creatinine 10.6. Troponin was 0.042. ASSESSMENT: 1. End-stage renal disease, on hemodialysis on a Sunday, Sunday, Sunday schedule. Patient missed her treatment yesterday. She also missed her treatment last week. She will be dialyzed today. 2. Volume overload. Expect improvement post dialysis. 3. Nausea and vomiting, treated symptomatically. Continue to monitor for now. Symptoms have improved. 4. Type 2 diabetes. 5. Chronic kidney disease mineral bone disorder. 6. Hypertension, partly volume-sensitive. PLAN: Hemodialysis today. We will plan for another treatment tomorrow, and this will help with the volume overload as well. ADDENDUM: The patient was being dialyzed on the floor. However, she requested to come off to go to the restroom. The patient was in the restroom for about 35 to 40 minutes and then came back to be hooked back up to dialysis. Her blood pressure was noted to be significantly low and then subsequently patient CODED. She went into PEA and code lasted for about 10 minutes. Post cardiac arrest, patient did not need to be intubated. She was transferred to the ICU. Dialysis needles were left in and patient will complete her treatment, mostly for volume overload. If she is hemodynamically stable, we will hold off on the dialysis and plan for a treatment tomorrow. MMODL / IJN: [id number] /
--- NOTE | 2020-07-13 17:27 | P.CNPUL ---
History of Present Illness Consult date: 07/13/20 Chief complaint: Unresponsiveness, cardiac arrest History of present illness: This is a 64-year-old. Patient is currently on hemodialysis for incisional disease. The patient is diabetic. The patient undergoes hemodialysis 3 times a week MW. She has chronic peripheral neuropathy involving the lower extremities and chronic lower extremity edema and lymphedema. She also has previous history of IBS and Mustafa's palsy. The patient was having nausea vomiting on outpatient basis. She missed 2 sessions of hemodialysis and she developed worsening shortness of breath and for that reason she was hospitalized on 07/12/2020. She had obviously increased edema. Her chest x-ray showed mild pulmonary vessel congestion and interstitial edema and small pleural effusions. The patient had mild heart failure. Her initial sodium level was 129. Her creatinine was up to 10.6 and her serum bicarb was 26. LFTs are within normal limits. D-dimer was 1. Coagulation profile was essentially within normal limits. The CPK was nonelevated at 83. Troponin was 0.042. ProBNP level was 42,700. The patient was undergoing hemodialysis this afternoon when she had to had stopped the dialysis to go to the bathroom and have a bowel movement. During the process, the patient spent quite a bit having a bowel movement and following that she came back to her bed and she acutely developed bradycardia and subsequently went into a PEA rhythm. Note that the patient already received hemodialysis for approximately 1.5 hours. She developed bradycardia and then she had agonal breathing and quickly went into PEA. At that point, CPR was initiated and the patient was given 2 rounds of epinephrine and 1 of sodium bicarb and calcium gluconate and she returned to spontaneous circulation following that. She did not get intubated. She was placed on on the percent on a beta facemasks. Upon return of smoking circulation her BP was 181 over 11. She did develop sinus rhythm and currently she is in sinus rhythm with a heart rate in the mid 50s. She had regained full consciousness and she was awake and alert and following commands and answering questions without any focal neurological deficits. She got moved to the intensive care unit. Blood gases was noted. No cervical metabolic acidosis. Lactic acid level was up to 3.7 following the code. Note that I repeated the blood work immediately in the ICU. Potassium level is at 3.2. The serum bicarb was 22. No other significant abnormalities on her blood work. Her blood gas showed a pH of 7.41 with a pCO2 of 43 and pO2 of 299. She denies having any chest pain. No pleurisy. No hemoptysis. The lynn virus Covid 19 PCR was negative. Review of Systems Constitutional: Reports fatigue, Reports weakness Eyes: denies as per HPI, denies blurred vision, denies bulging eye, denies decreased vision, denies diplopia, denies discharge, denies dry eye, denies irritation, denies itching, denies pain, denies photophobia, denies loss of peripheral vision, denies loss of vision, denies tunnel vision/blind spots Ears: deny: decreased hearing, ear discharge, earache, tinnitus Ears, nose, mouth and throat: Denies headache, Denies sore throat Breasts: absent: as per HPI, change in shape, gynecomastia, masses, nipple discharge, pain, skin changes, swelling Cardiovascular: Reports decreased exercise tolerance, Reports dyspnea on e xertion Respiratory: Reports as per HPI, Reports dyspnea Gastrointestinal: Reports nausea, Reports vomiting Genitourinary: Reports as per HPI (The patient is on dialysis through AV graft in the left upper extremity) Menstruation: Reports as per HPI Musculoskeletal: Reports arm numbness/tingling Musculoskeletal: bilateral: ankle swelling, absent: ankle pain, ankle stiffness Integumentary: Reports as per HPI Neurological: Reports gait dysfunction, Reports weakness Psychiatric: Reports as per HPI Endocrine: Reports as per HPI, Reports fatigue Hematologic/Lymphatic: Reports as per HPI Allergic/Immunologic: Reports as per HPI Past Medical History Past Medical History: Diabetes Mellitus, Hypertension, Renal Disease Additional Past Medical History / Comment(s): ESRD with hemodialysis M/W/F, IDDM type II, past DKA, neuropathy bilateral feet/legs and alittle in hands, "fast heart rate"-had cardiac ablation, lymphedema bilateral lower legs/feet, gout R knee, mineral bone disease, IBS, R sided Mustafa's palsey. History of Any Multi-Drug Resistant Organisms: None Reported Past Surgical History: Appendectomy, Cardiac Ablation, Section, Cholecystectomy, Tubal Ligation Additional Past Surgical History / Comment(s): bilateral cataract removal with lens implants, C-sections, bilateral benign breast biopsies, AV graft left arm done 06-23-16 for dialysis, colonoscopy. Past Anesthesia/Blood Transfusion Reactions: Motion Sickness, Postoperative Nausea & Vomiting (PONV) Past Psychological History: No Psychological Hx Reported Additional Psychological History / Comment(s): Pt resides with her spouse. She is independent. She uses a walker. She drives. She has a nebulizer. Smoking Status: Never smoker Past Alcohol Use History: None Reported Past Drug Use History: None Reported - Past Family History Father Family Medical History: Cancer, Diabetes Mellitus Additional Family Medical History / Comment(s): Father had prostate cancer. Mother Family Medical History: Cancer Additional Family Medical History / Comment(s): Mother had breast cancer. Medications and Allergies Home Medications Medication Instructions Recorded Confirmed Type Carvedilol 25 mg PO BID 09/22/15 07/12/20 History Colchicine [Colcrys] See Taper PO DIRECTED PRN 06/27/16 07/12/20 History Gabapentin [Neurontin] 300 mg PO DAILY PRN 06/27/16 07/12/20 History Aspirin [Adult Low Dose Aspirin EC] 81 mg PO DAILY 09/16/16 07/12/20 History amLODIPine [Norvasc] 10 mg PO HS 11/29/16 07/12/20 History Insulin Glargine,Hum.rec.anlog 21 unit SQ HS 07/08/18 07/12/20 History [Basaglar Kwikpen U-100] Furosemide [Lasix] 40 mg PO SUTUTHSA 04/15/19 07/12/20 History Lidocaine-Prilocaine Cream [Emla 1 applic TOPICAL MOWEFR PRN 05/19/20 07/12/20 History Cream 2.5%/2.5%] Ondansetron HCl [Zofran] 4 mg PO Q8H PRN 05/19/20 07/13/20 History Calcium Acetate [Phoslo] 1,334 mg PO AC-BID 07/12/20 07/12/20 History Calcium Acetate [Phoslo] 667 mg PO DAILY PRN 07/12/20 07/12/20 History INSULIN ASPART (NovoLOG) [NovoLOG 10 unit SQ AC-TID 07/12/20 07/12/20 History (formulary)] INSULIN ASPART (NovoLOG) [NovoLOG See Protocol SQ AC-TID 07/12/20 07/12/20 History (formulary)] HYDROcodone/APAP 7.5-325MG [Sula 1 tablet PO BID PRN 07/13/20 07/13/20 History 7.5-325] Allergies Allergy/AdvReac Type Severity Reaction Status Date / Time sulfamethoxazole AdvReac Nausea & Verified 07/12/20 22:05 [From Bactrim] Vomiting,dyspnea trimethoprim [From Bactrim] AdvReac Nausea & Verified 07/12/20 22:05 Vomiting,dyspnea Physical Exam Vitals: Vital Signs Temp Pulse Pulse Resp BP BP Pulse Ox 07/13/20 12:05 48 L 18 114/50 98 07/13/20 08:25 98.8 F 53 L 18 135/62 98 07/13/20 03:08 56 L 18 154/65 97 07/13/20 03:07 60 19 07/13/20 00:48 97.6 F 60 19 155/70 99 07/13/20 00:00 60 19 07/12/20 23:32 98.2 F 60 18 142/63 98 07/12/20 23:20 60 18 151/68 99 07/12/20 21:30 59 L 20 162/70 07/12/20 21:29 59 L 16 07/12/20 21:18 59 L 18 07/12/20 21:06 99 07/12/20 20:35 97.8 F 60 18 192/77 98 Intake and Output 07/13/20 07/13/20 07/13/20 06:59 14:59 22:59 Other: # Voids 2 # Bowel Movements 1 Weight 103 kg 103 kg Gen. appearance, comfortable and the patient is not in acute respiratory distress. The patient is communicating and alert and she is awake. Head exam was generally normal. There was no scleral icterus or corneal arcus. Mucous membranes were moist. Neck was supple and without jugular venous distension, thyromegaly, or carotid bruits. Carotids were easily palpable bilaterally. There was no adenopathy. Lungs were clear to auscultation and percussion, and with normal diaphragmatic excursion. No wheezes or rales were noted. The patient has few crackles in lung bases bilaterally. Heart sounds are regular and there is a systolic ejection murmur heard over the left lateral sternal border and apex. Abdominal exam revealed normal bowel sounds. The abdomen was soft, non-tender, and without masses, organomegaly, or appreciable enlargement of the abdominal aorta. Extremities revealed an AV graft which is functional in the left upper extremity. The patient's chronic lipedema and edema in lower extremity is bilaterally was 1-2 pitting. Neurologically, the patient is awake and alert and the patient does not have any focal neurological deficit. Cranial nerves are essentially intact. Examination of the skin revealed no evidence of significant rashes, suspicious appearing nevi or other concerning lesions. Results - Laboratory Findings CBC and BMP: 07/12/20 21:19 07/13/20 15:31 ABG ABG pH 7.41 (7.35-7.45) 07/13/20 15:44 ABG pCO2 43 mmHg (35-45) 07/13/20 15:44 ABG pO2 299 mmHg (83-108) H 07/13/20 15:44 ABG O2 Saturation 99.3 % (94-97) H 07/13/20 15:44 PT/INR, D-dimer PT 11.9 sec (9.0-12.0) 07/13/20 15:31 INR 1.2 (<1.2) H 07/13/20 15:31 D-Dimer 1.01 mg/L FEU (<0.60) H 07/12/20 21:19 Abnormal lab findings: Abnormal Labs 07/12/20 07/12/20 07/12/20 21:19 21:19 21:19 RBC 3.36 L Hgb 10.3 L Hct 32.6 L INR APTT 19.3 L D-Dimer 1.01 H ABG pO2 ABG HCO3 ABG Total CO2 ABG O2 Saturation Sodium 129 L Potassium Chloride 90 L BUN 49 H Creatinine 10.66 H* Glucose 442 H POC Glucose (mg/dL) Plasma Lactic Acid [place] Calcium Magnesium Troponin I Lipase 07/12/20 07/13/20 07/13/20 21:19 00:00 06:26 RBC Hgb Hct INR APTT D-Dimer ABG pO2 ABG HCO3 ABG Total CO2 ABG O2 Saturation Sodium Potassium Chloride BUN Creatinine Glucose POC Glucose (mg/dL) 442 H 263 H Plasma Lactic Acid [place] Calcium Magnesium Troponin I 0.042 H* Lipase 07/13/20 07/13/20 07/13/20 11:47 15:31 15:31 RBC Hgb Hct INR 1.2 H APTT D-Dimer ABG pO2 ABG HCO3 ABG Total CO2 ABG O2 Saturation Sodium Potassium 3.2 L Chloride BUN 32 H Creatinine 7.82 H* Glucose 111 H POC Glucose (mg/dL) 235 H Plasma Lactic Acid [place] Calcium 10.3 H Magnesium 2.6 H Troponin I Lipase 07/13/20 07/13/20 07/13/20 15:31 15:31 15:44 RBC Hgb Hct INR APTT D-Dimer ABG pO2 299 H ABG HCO3 27 H ABG Total CO2 28 H ABG O2 Saturation 99.3 H Sodium Potassium Chloride BUN Creatinine Glucose POC Glucose (mg/dL) Plasma Lactic Acid [place] 3.7 H* Calcium Magnesium Troponin I Lipase 16 L - Diagnostic Findings Chest x-ray: image reviewed Assessment and Plan Plan: 1 acute cardiac pulmonary arrest. The patient developed bradycardia with agonal respirations subsequently she went into a PEA. Exact etiology is not clear. Suspect underlying cardiac event. A vasovagal event post defecation is felt to be less likely. The patient got resuscitated based on ACLS protocol with a very short downtime and return respiratory circulation. She is hemodynamically stable at this point in time. Troponin is not elevated. EKG showing a normal sinus rhythm without any acute ischemic changes or any ST segment elevation or depression. She had a normal sinus rhythm with bradycardia. She has not required any pressors. 2 mild lactic acidosis with a lactic acid level of 3.7 post cardiac arrest 3 end-stage renal disease on hemodialysis 3 times a week MWF and the patient was approximately 1-1/2 hours into dialysis when she had this above-mentioned events. She had missed 2 sessions of dialysis earlier the patient had a component of fluid overload. 4 shortness of breath secondary to above 5 diabetes mellitus type 2. No documented hypoglycemia. 6 diabetic peripheral neuropathy 7 chronic lymphedema lower extremity with interval worsening of the swelling as the patient has missed dialysis 2 8 Gout 9 metabolic bone disease 10 IBS 11 right-sided Mustafa's palsy 12 hypertension 13 hyperlipidemia Plan Monitor troponins 3 obtain echocardiogram hemodynamically stable. FiO2 will be weaned down and the patient and placed on oxygen by nasal cannula blood work was noted Complete hemodialysis and I've discussed this with nephrology ICU monitoring Check Doppler of the lower extremities Cardiology consultation We'll continue to follow.
--- NOTE | 2020-07-13 17:31 | P.PCN ---
Date of Procedure: 07/13/20 Preoperative Diagnosis: Cardiac arrest, PEA Postoperative Diagnosis: Cardiac arrest, PEA Procedure(s) Performed: Triple-lumen catheter insertion Anesthesia: local Surgeon: Lian Campos Estimated Blood Loss (ml): 0 Pathology: none sent Condition: critical Disposition: ICU Operative Findings: Indication: Hemodynamic monitoring/Intravenous access. A time-out was completed verifying correct patient, procedure, site, positioning, and implant(s) or special equipment if applicable. The patient was placed in a dependent position appropriate for central line placement based on the vein to be cannulated. The patients right neck was prepped and draped in sterile fashion. 1% Lidocaine was used to anesthetize the surrounding skin area. A triple lumen 9F Cordis catheter was introduced into the internal jugular vein using Seldinger technique. The catheter was threaded smoothly over the guide wire and appropriate blood return was obtained. Each lumen of the catheter was evacuated of air and flushed with sterile saline. The catheter was then sutured in place to the skin and a sterile dressing applied. Perfusion to the extremity distal to the point of catheter insertion was checked and found to be adequate. The patient tolerated the procedure well and there were no complications.
[2020-07-13] MEDS: amLODIPine 10 MG TAB PO SCH (20:16)
--- NOTE | 2020-07-13 20:33 | US ---
EXAMINATION TYPE: US venous doppler duplex LE DATE OF EXAM: 07/13/2020 8:13 PM COMPARISON: [facility] 2012 CLINICAL HISTORY: swelling , rule out DVT. Swelling bilateral lower extremities. No hx of DVT. Patien t takes baby aspirin. SIDE PERFORMED: Bilateral TECHNIQUE: The lower extremity deep venous system is examined utilizing real time linear array sonog wesley with graded compression, doppler sonography and color-flow sonography. VESSELS IMAGED: External Iliac Vein (EIV) Common Femoral Vein Deep Femoral Vein Greater Saphenous Vein * Femoral Vein Popliteal Vein Small Saphenous Vein * Proximal Calf Veins (* superficial vessels) Limited due to patient body habitus. Right Leg: No evidence of DVT in veins imaged at this time from prox calf veins to EIV. Limited visi bility of distal segment right femoral vein in compression views. Left Leg: No evidence of DVT in veins imaged at this time from prox calf veins to EIV. IMPRESSION: No sign of deep vein thrombosis in both legs.
[2020-07-13 20:54] LABS: Glucose,Whole Blood 82 mg/dL (75-99)
[2020-07-13] MEDS ORDERED: FAMOTIDINE 20 MG/2 ML VIAL IV SCH (21:00)
[2020-07-13 21:22] LABS: Hemoglobin A1C 7.9 % (4.0-6.0)
[2020-07-13] MEDS: INSULIN DETEMIR (LEVEMIR) 100 UNIT/ML SYR SQ SCH (21:22)
[2020-07-13] MEDS ORDERED: ASPIRIN 325 MG TAB PO SCH (22:51)
[2020-07-14] MEDS: HEPARIN SODIUM,PORCINE 5,000 UNIT/ML 1 ML VIAL SQ SCH ×3 (00:31→17:51)
[2020-07-14 02:01] LABS: Glucose,Whole Blood 85 mg/dL (75-99)
[2020-07-14 06:49] LABS: Glucose,Whole Blood 114 mg/dL (75-99)
[2020-07-14 06:54] LABS: Basophils # (A) 0.1 k/uL (0-0.2); Basophils % (A) 1 %; Eosinophils # (A) 0.2 k/uL (0-0.7); Eosinophils % (A) 2 %; HCT 32.5 % (34.0-46.0); HGB 10.1 gm/dL (11.4-16.0); Hypochromasia Moderate; Lymphocytes # (A) 1.3 k/uL (1.0-4.8); Lymphocytes % (A) 17 %; MCH 30.6 pg (25.0-35.0); MCHC 31.1 g/dL (31.0-37.0); MCV 98.2 fL (80.0-100.0); Mean Platelet Volume 9.1; Monocytes # (A) 0.5 k/uL (0-1.0); Monocytes % (A) 6 %; Neutrophils # (A) 5.4 k/uL (1.3-7.7); Neutrophils % (A) 72 %; Platelet Count 207 k/uL (150-450); RBC 3.32 m/uL (3.80-5.40); RDW 13.9 % (11.5-15.5); WBC 7.5 k/uL (3.8-10.6)
[2020-07-14] MEDS: INSULIN ASPART (NovoLOG) 100 UNIT/ML VIAL SQ SCH ×7 (06:54→21:06)
[2020-07-14] MEDS: carvediloL 12.5 MG TAB PO SCH ×2 (07:03→17:37)
[2020-07-14] MEDS: CALCIUM ACETATE 667 MG TAB PO SCH ×2 (07:03→17:43)
--- NOTE | 2020-07-14 07:43 | XR ---
EXAMINATION TYPE: XR chest 1V portable DATE OF EXAM: 07/14/2020 COMPARISON: 07/13/2020 INDICATION: CHF TECHNIQUE: Single frontal view of the chest is obtained. FINDINGS: The heart size is mildly prominent. The pulmonary vasculature is mildly prominent. Small left pleural effusion is present. Right central venous catheter is present with the tip in the right atrium. IMPRESSION: 1. Small left pleural effusion. 2. Cardiomegaly with prominent pulmonary vascular markings. There may be some volume overload present .
[2020-07-14 08:20] LABS: Calcium 8.5 mg/dL (8.4-10.2)
[2020-07-14] MEDS ORDERED: ASPIRIN 81 MG PO SCH (09:00)
[2020-07-14] MEDS ORDERED: LOPERAMIDE 2 MG CAP PO SCH (09:30)
[2020-07-14] MEDS: ASPIRIN 81 MG PO SCH (09:31)
[2020-07-14] MEDS: NITROGLYCERIN OINT 1 INCH/GM PACKET TOPICAL SCH ×5 (09:31→23:14)
[2020-07-14] MEDS: FAMOTIDINE 20 MG TAB PO SCH (09:31)
[2020-07-14] MEDS ORDERED: LOPERAMIDE 2 MG CAP PO PRN (09:32)
--- NOTE | 2020-07-14 10:00 | ECHOF ---
Referral Reason:cardiac arrest MEASUREMENTS -------- HEIGHT: 160.0 cm WEIGHT: 106.1 kg BP: 167/65 RVIDd: 3.4 cm (< 3.3) TR Vmax: 2.78 m/s TR maxP.84 mmHg RAP: 5.00 mmHg RVSP: 35.84 mmHg FINDINGS -------- Sinus rhythm. Limited Study Overall left ventricular systolic function is normal with, an EF between 55 - 60 %. The aortic valve is trileaflet and appears structurally normal. Mild mitral regurgitation is present. Mild tricuspid regurgitation present. There is mild pulmonary hypertension. The right ventricular systolic pressure, as measured by Doppler, is 35.84mmHg. Trace/mild (physiologic) pulmonic regurgitation. There is no pericardial effusion. CONCLUSIONS -------- 1. Limited Study 2. Overall left ventricular systolic function is normal with, an EF between 55 - 60 %. 3. Mild mitral regurgitation is present. 4. Mild tricuspid regurgitation present. 5. There is mild pulmonary hypertension. 6. Trace/mild (physiologic) pulmonic regurgitation. 7. There is no pericardial effusion. LINESPERSON: Mary Stover RDCS
--- NOTE | 2020-07-14 11:36 | P.PN ---
Subjective Patient is admitted with pulmonary edema secondary to missing hemodialysis and nausea vomiting secondary to renal failure. Nausea vomiting improved presently. Patient was transferred to ICU yesterday as she had an episode of pulseless electrical activity patient was resuscitated there for about 10 minutes and received 2 doses of epinephrine. Patient is presently clinically doing well chest x-ray still showing some pulmonary edema. Patient had a normal ejection fraction. Constitutional: Denied any fatigue denied any fever. Cardio vascular: denied any chest pain, palpitations Gastrointestinal denied any nausea vomiting Pulmonary: Denied any shortness of breath cough Neurologic denied any new focal deficits All inpatient medications were reviewed and appropriate changes in these medications as dictated in the interval history and assessment and plan. Objective - Vital Signs Vital signs: Vital Signs Temp 97.9 F 07/14/20 08:00 Pulse 54 L 07/14/20 11:00 Resp 20 07/14/20 11:00 BP 156/83 07/14/20 11:00 Pulse Ox 98 07/14/20 11:00 Intake & Output 07/13/20 07/14/20 07/14/20 18:59 06:59 18:59 Intake Total 20 240 20 Output Total 550 2000 0 Balance -530 -1760 20 Weight 103 kg 106.5 kg Intake: IV 20 240 20 0.9 20 240 20 Output: Urine 0 Hemodialysis 550 2000 Other: # Voids 2 1 # Bowel Movements 1 1 - Exam PHYSICAL EXAMINATION: GENERAL: The patient is alert and oriented x3, not in any acute distress. Well developed, well nourished. HEENT: Pupils are round and equally reacting to light. EOMI. No scleral icterus. No conjunctival pallor. Normocephalic, atraumatic. No pharyngeal erythema. No thyromegaly. CARDIOVASCULAR: S1 and S2 present. No murmurs, rubs, or gallops. PULMONARY: Mild bibasilar crackles and rhonchi ABDOMEN: Soft, nontender, nondistended, normoactive bowel sounds. No palpable organomegaly. MUSCULOSKELETAL: No joint swelling or deformity. EXTREMITIES: No cyanosis, clubbing, still has significant bilateral pedal edema NEUROLOGICAL: Gross neurological examination did not reveal any focal deficits. SKIN: No rashes. - Labs CBC & Chem 7: 07/14/20 06:14 07/14/20 07:50 Labs: Abnormal Lab Results - Last 24 Hours (Table) 0907/13/20 07/13/20 Range/Units 21:19 11:47 15:31 RBC (3.80-5.40) m/uL Hgb (11.4-16.0) gm/dL Hct (34.0-46.0) % INR 1.2 H (<1.2) ABG pO2 (83-108) mmHg ABG HCO3 (21-25) mmol/L ABG Total CO2 (19-24) mmol/L ABG O2 Saturation (94-97) % Potassium (3.5-5.1) mmol/L BUN (7-17) mg/dL Creatinine (0.52-1.04) mg/dL Glucose (74-99) mg/dL POC Glucose (mg/dL) 235 H (75-99) mg/dL Hemoglobin A1c 7.9 H (4.0-6.0) % Plasma Lactic Acid Milton (0.7-2.0) mmol/L Calcium (8.4-10.2) mg/dL Magnesium (1.6-2.3) mg/dL Troponin I (0.000-0.034) ng/mL Lipase (23-300) U/L 07/13/20 07/13/20 07/13/20 Range/Units 15:31 15:31 15:31 RBC (3.80-5.40) m/uL Hgb (11.4-16.0) gm/dL Hct (34.0-46.0) % INR (<1.2) ABG pO2 (83-108) mmHg ABG HCO3 (21-25) mmol/L ABG Total CO2 (19-24) mmol/L ABG O2 Saturation (94-97) % Potassium 3.2 L (3.5-5.1) mmol/L BUN 32 H (7-17) mg/dL Creatinine 7.82 H* (0.52-1.04) mg/dL Glucose 111 H (74-99) mg/dL POC Glucose (mg/dL) (75-99) mg/dL Hemoglobin A1c (4.0-6.0) % Plasma Lactic Acid Milton 3.7 H* (0.7-2.0) mmol/L Calcium 10.3 H (8.4-10.2) mg/dL Magnesium 2.6 H (1.6-2.3) mg/dL Troponin I (0.000-0.034) ng/mL Lipase 16 L (23-300) U/L 07/13/20 07/13/20 07/13/20 Range/Units 15:44 18:10 23:55 RBC (3.80-5.40) m/uL Hgb (11.4-16.0) gm/dL Hct (34.0-46.0) % INR (<1.2) ABG pO2 299 H (83-108) mmHg ABG HCO3 27 H (21-25) mmol/L ABG Total CO2 28 H (19-24) mmol/L ABG O2 Saturation 99.3 H (94-97) % Potassium (3.5-5.1) mmol/L BUN (7-17) mg/dL Creatinine (0.52-1.04) mg/dL Glucose (74-99) mg/dL POC Glucose (mg/dL) (75-99) mg/dL Hemoglobin A1c (4.0-6.0) % Plasma Lactic Acid Milton (0.7-2.0) mmol/L Calcium (8.4-10.2) mg/dL Magnesium (1.6-2.3) mg/dL Troponin I 0.060 H* 0.115 H* (0.000-0.034) ng/mL Lipase (23-300) U/L 07/14/20 07/14/20 07/14/20 Range/Units 06:14 06:47 07:50 RBC 3.32 L (3.80-5.40) m/uL Hgb 10.1 L (11.4-16.0) gm/dL Hct 32.5 L (34.0-46.0) % INR (<1.2) ABG pO2 (83-108) mmHg ABG HCO3 (21-25) mmol/L ABG Total CO2 (19-24) mmol/L ABG O2 Saturation (94-97) % Potassium (3.5-5.1) mmol/L BUN 28 H (7-17) mg/dL Creatinine 7.71 H* (0.52-1.04) mg/dL Glucose 169 H (74-99) mg/dL POC Glucose (mg/dL) 114 H (75-99) mg/dL Hemoglobin A1c (4.0-6.0) % Plasma Lactic Acid Milton (0.7-2.0) mmol/L Calcium (8.4-10.2) mg/dL Magnesium (1.6-2.3) mg/dL Troponin I (0.000-0.034) ng/mL Lipase (23-300) U/L 07/14/20 Range/Units 07:50 RBC (3.80-5.40) m/uL Hgb (11.4-16.0) gm/dL Hct (34.0-46.0) % INR (<1.2) ABG pO2 (83-108) mmHg ABG HCO3 (21-25) mmol/L ABG Total CO2 (19-24) mmol/L ABG O2 Saturation (94-97) % Potassium (3.5-5.1) mmol/L BUN (7-17) mg/dL Creatinine (0.52-1.04) mg/dL Glucose (74-99) mg/dL POC Glucose (mg/dL) (75-99) mg/dL Hemoglobin A1c (4.0-6.0) % Plasma Lactic Acid Milton (0.7-2.0) mmol/L Calcium (8.4-10.2) mg/dL Magnesium (1.6-2.3) mg/dL Troponin I 0.102 H* (0.000-0.034) ng/mL Lipase (23-300) U/L Assessment and Plan Plan: -pulmonary edema which is again secondary to missing hemodialysis, patient had hemodialysis yesterday will receive hemodialysis again today. No evidence of heart failure -Cardio pulmonary arrest: Was successfully resuscitated patient had an episode of PE A received 2 rounds of epinephrine 1 amp of sodium bicarbonate and calcium gluconate -Severe nausea: Secondary to renal failure, patient will be continued on Zofran and Pepcid. Hopefully this will improve with the hemodialysis. -End-stage stage renal disease: Patient will need hemodialysis today usually Sunday schedule -Hyponatremia: Expected to improve with hemodialysis secondary to renal failure -Mildly elevated troponin without any chest pain history: Secondary to renal failure -Type 2 diabetes mellitus: Uncontrolled elevated blood sugars: Patient will be resumed on her home regimen and titrate the insulin depending on her blood sugars. -Hypertension -Metabolic bone disease from renal failure -DVT prophylaxis with subcutaneous heparin from tomorrow as patient received high-dose Lovenox in spite of renal failure.
[2020-07-14 12:08] LABS: Glucose,Whole Blood 250 mg/dL (75-99)
--- NOTE | 2020-07-14 12:20 | PN ---
PROGRESS NOTE Patient is seen for followup for end-stage renal disease. She was transferred to the ICU yesterday after cardiac arrest. Patient developed PEA. She was down for about 10 minutes and this happened while patient came off dialysis to go to the bathroom and she was found to be significantly hypotensive after she came back. She was not reconnected to the dialysis machine yet. However, she did not need intubation and patient was dialyzed after the code. She tolerated her treatment very well. Electrolytes have been within normal range. Troponin was mildly elevated. Currently patient is asymptomatic. She is sitting up in a bedside chair, comfortable with no significant complaints. Patient had missed outpatient dialysis and there was evidence of CHF and fluid overload. We did have about 2 L of ultrafiltration yesterday. PHYSICAL EXAMINATION: On examination today, blood pressure was 149/66, heart rate 54 per minute, she is afebrile. Examination of the heart S1, S2. Examination of the lungs, bilateral breath sounds are heard. Abdomen is soft, nontender, obese. Examination of the lower extremities shows edema bilateral extremities which is chronic. Patient's legs are currently wrapped. BIOM[employer] FACILITATOR exam grossly intact. LABS: Show sodium 139, potassium 4.0, chloride 102, BUN 28, creatinine 7.7 troponin 0.102. ASSESSMENT: 1. End-stage renal disease, on hemodialysis on a Sunday, Sunday, Sunday schedule, status post dialysis yesterday as patient had missed her treatment as outpatient. 2. Status post cardiac arrest. Patient did not need intubation. She is currently doing well. Troponin is borderline. 3. Nausea and vomiting, currently improved. 4. CHF/volume overload, expect further improvement post hemodialysis today. PLAN: Repeat dialysis today with goal UF of about 2-3 L. MMODL / IJN: [id number] /
--- NOTE | 2020-07-14 13:36 | P.PN ---
Subjective Progress Note Date: 07/14/20 Principal diagnosis: Cardiac arrest This is a 64-year-old. Patient is currently on hemodialysis for incisional disease. The patient is diabetic. The patient undergoes hemodialysis 3 times a week MW. She has chronic peripheral neuropathy involving the lower extremities and chronic lower extremity edema and lymphedema. She also has previous history of IBS and Mustafa's palsy. The patient was having nausea vomiting on outpatient basis. She missed 2 sessions of hemodialysis and she developed worsening shortness of breath and for that reason she was hospitalized on 07/12/2020. She had obviously increased edema. Her chest x-ray showed mild pulmonary vessel congestion and interstitial edema and small pleural effusions. The patient had mild heart failure. Her initial sodium level was 129. Her creatinine was up to 10.6 and her serum bicarb was 26. LFTs are within normal limits. D-dimer was 1. Coagulation profile was essentially within normal limits. The CPK was nonelevated at 83. Troponin was 0.042. ProBNP level was 42,700. The patient was undergoing hemodialysis this afternoon when she had to had stopped the dialysis to go to the bathroom and have a bowel movement. During the process, the patient spent quite a bit having a bowel movement and following that she came back to her bed and she acutely developed bradycardia and subsequently went into a PEA rhythm. Note that the patient already received hemodialysis for approximately 1.5 hours. She developed bradycardia and then she had agonal breathing and quickly went into PEA. At that point, CPR was initiated and the patient was given 2 rounds of epinephrine and 1 of sodium bicarb and calcium gluconate and she returned to spontaneous circulation following that. She did not get intubated. She was placed on on the percent on a beta facemasks. Upon return of smoking circulation her BP was 181 over 11. She did develop sinus rhythm and currently she is in sinus rhythm with a heart rate in the mid 50s. She had regained full consciousness and she was awake and alert and following commands and answering questions without any focal neurological deficits. She got moved to the intensive care unit. Blood gases was noted. No cervical metabolic acidosis. Lactic acid level was up to 3.7 following the code. Note that I repeated the blood work immediately in the ICU. Potassium level is at 3.2. The serum bicarb was 22. No other significant abnormalities on her blood work. Her blood gas showed a pH of 7.41 with a pCO2 of 43 and pO2 of 299. She denies having any chest pain. No pleurisy. No hemoptysis. The lynn virus Covid 19 PCR was negative. On patient seen in follow-up in the intensive care unit, she is currently awake and alert, she is oriented 3, she denies any acute distress, no complaint of chest and shortness of breath. Patient is currently on 2 L of oxygen her pulse ox is 98%, she's been afebrile, she remains bradycardic on the monitor, in sinus mechanism with a rate of 55-56 BPM, her Coreg remains on hold, yesterday patient has completed her hemodialysis and 2550 cc of fluid was removed with dialysis. She has had no recurrent issues overnight, electrolytes this morning have been reviewed showing sodium of 139, potassium is 4.0, chloride is 102, CO2 is 28, BUN of 28, creatinine is 7.71, troponin came back at 0.102. No fever or chills, no leukocytosis on today's labs, white blood cell count is 7.5, hemoglobin is 10.1. Echocardiogram has been completed showing left ventricular systolic function is normal with an EF of 55-60%, mild mitral regurg, mild tricuspid regurg with mild pulmonary hypertension and right-sided pressures of 35.8 mmHg. Her chest x-ray today shows small left pleural effusion, cardiomegaly with prominent pulmonary vascular markings suggesting of of some volume overload. Patient will have another hemodialysis session today and the goal to remove 2-3 L. Lower extremity Dopplers showed no evidence of DVT Objective - Vital Signs Vital signs: Vital Signs Temp 98.2 F 07/14/20 12:00 Pulse 56 L 07/14/20 13:00 Resp 14 07/14/20 13:00 BP 160/80 07/14/20 13:00 Pulse Ox 98 07/14/20 13:00 Intake & Output 07/13/20 07/14/20 07/14/20 18:59 06:59 18:59 Intake Total 20 240 20 Output Total 550 2000 0 Balance -530 -1760 20 Weight 103 kg 106.5 kg Intake: IV 20 240 20 0.9 20 240 20 Output: Urine 0 Hemodialysis 550 2000 Other: # Voids 2 0 # Bowel Movements 1 1 - Exam GENERAL EXAM: Alert, very pleasant, 64-year-old white female on 2 L of oxygen pulse ox 98% comfortable in no apparent distress. HEAD: Normocephalic/atraumatic. EYES: Normal reaction of pupils, equal size. Conjunctiva pink, sclera white. NOSE: Clear with pink turbinates. THROAT: No erythema or exudates. NECK: No masses, no JVD, no thyroid enlargement, no adenopathy. CHEST: No chest wall deformity. Symmetrical expansion. LUNGS: Equal air entry with no crackles, wheeze, rhonchi or dullness. CVS: Regular rate and rhythm, normal S1 and S2, no gallops, no murmurs, no rubs ABDOMEN: Soft, nontender. No hepatosplenomegaly, normal bowel sounds, no guarding or rigidity. EXTREMITIES: No clubbing, no edema, no cyanosis, 2+ pulses and upper and lower extremities. MUSCULOSKELETAL: Muscle strength and tone normal. SPINE: No scoliosis or deformity SKIN: No rashes CENTRAL NERVOUS SYSTEM: Alert and oriented -3. No focal deficits, tone is normal in all 4 extremities. PSYCHIATRIC: Alert and oriented -3. Appropriate affect. Intact judgment and insight. - Labs CBC & Chem 7: 07/14/20 06:14 07/14/20 07:50 Labs: Abnormal Lab Results - Last 24 Hours (Table) 07/12/20 07/13/20 07/13/20 Range/Units 21:19 15:31 15:31 RBC (3.80-5.40) m/uL Hgb (11.4-16.0) gm/dL Hct (34.0-46.0) % INR 1.2 H (<1.2) ABG pO2 (83-108) mmHg ABG HCO3 (21-25) mmol/L ABG Total CO2 (19-24) mmol/L ABG O2 Saturation (94-97) % Potassium 3.2 L (3.5-5.1) mmol/L BUN 32 H (7-17) mg/dL Creatinine 7.82 H* (0.52-1.04) mg/dL Glucose 111 H (74-99) mg/dL POC Glucose (mg/dL) (75-99) mg/dL Hemoglobin A1c 7.9 H (4.0-6.0) % Plasma Lactic Acid Milton (0.7-2.0) mmol/L Calcium 10.3 H (8.4-10.2) mg/dL Magnesium 2.6 H (1.6-2.3) mg/dL Troponin I (0.000-0.034) ng/mL Lipase (23-300) U/L 07/13/20 07/13/20 07/13/20 Range/Units 15:31 15:31 15:44 RBC (3.80-5.40) m/uL Hgb (11.4-16.0) gm/dL Hct (34.0-46.0) % INR (<1.2) ABG pO2 299 H (83-108) mmHg ABG HCO3 27 H (21-25) mmol/L ABG Total CO2 28 H (19-24) mmol/L ABG O2 Saturation 99.3 H (94-97) % Potassium (3.5-5.1) mmol/L BUN (7-17) mg/dL Creatinine (0.52-1.04) mg/dL Glucose (74-99) mg/dL POC Glucose (mg/dL) (75-99) mg/dL Hemoglobin A1c (4.0-6.0) % Plasma Lactic Acid Milton 3.7 H* (0.7-2.0) mmol/L Calcium (8.4-10.2) mg/dL Magnesium (1.6-2.3) mg/dL Troponin I (0.000-0.034) ng/mL Lipase 16 L (23-300) U/L 07/13/20 07/13/20 07/14/20 Range/Units 18:10 23:55 06:14 RBC 3.32 L (3.80-5.40) m/uL Hgb 10.1 L (11.4-16.0) gm/dL Hct 32.5 L (34.0-46.0) % INR (<1.2) ABG pO2 (83-108) mmHg ABG HCO3 (21-25) mmol/L ABG Total CO2 (19-24) mmol/L ABG O2 Saturation (94-97) % Potassium (3.5-5.1) mmol/L BUN (7-17) mg/dL Creatinine (0.52-1.04) mg/dL Glucose (74-99) mg/dL POC Glucose (mg/dL) (75-99) mg/dL Hemoglobin A1c (4.0-6.0) % Plasma Lactic Acid Milton (0.7-2.0) mmol/L Calcium (8.4-10.2) mg/dL Magnesium (1.6-2.3) mg/dL Troponin I 0.060 H* 0.115 H* (0.000-0.034) ng/mL Lipase (23-300) U/L 07/14/20 07/14/20 07/14/20 Range/Units 06:47 07:50 07:50 RBC (3.80-5.40) m/uL Hgb (11.4-16.0) gm/dL Hct (34.0-46.0) % INR (<1.2) ABG pO2 (83-108) mmHg ABG HCO3 (21-25) mmol/L ABG Total CO2 (19-24) mmol/L ABG O2 Saturation (94-97) % Potassium (3.5-5.1) mmol/L BUN 28 H (7-17) mg/dL Creatinine 7.71 H* (0.52-1.04) mg/dL Glucose 169 H (74-99) mg/dL POC Glucose (mg/dL) 114 H (75-99) mg/dL Hemoglobin A1c (4.0-6.0) % Plasma Lactic Acid Milton (0.7-2.0) mmol/L Calcium (8.4-10.2) mg/dL Magnesium (1.6-2.3) mg/dL Troponin I 0.102 H* (0.000-0.034) ng/mL Lipase (23-300) U/L 07/14/20 Range/Units 12:06 RBC (3.80-5.40) m/uL Hgb (11.4-16.0) gm/dL Hct (34.0-46.0) % INR (<1.2) ABG pO2 (83-108) mmHg ABG HCO3 (21-25) mmol/L ABG Total CO2 (19-24) mmol/L ABG O2 Saturation (94-97) % Potassium (3.5-5.1) mmol/L BUN (7-17) mg/dL Creatinine (0.52-1.04) mg/dL Glucose (74-99) mg/dL POC Glucose (mg/dL) 250 H (75-99) mg/dL Hemoglobin A1c (4.0-6.0) % Plasma Lactic Acid Milton (0.7-2.0) mmol/L Calcium (8.4-10.2) mg/dL Magnesium (1.6-2.3) mg/dL Troponin I (0.000-0.034) ng/mL Lipase (23-300) U/L Assessment and Plan Plan: Assessment: 1 acute cardiac pulmonary arrest. The patient developed bradycardia with agonal respirations subsequently she went into a PEA. Exact etiology is not clear. Suspect underlying cardiac event. A vasovagal event post defecation is felt to be less likely. The patient got resuscitated based on ACLS protocol with a very short downtime and return respiratory circulation. She is hemodynamically stable at this point in time. Troponin is not elevated. EKG showing a normal sinus rhythm without any acute ischemic changes or any ST segment elevation or depression. She had a normal sinus rhythm with bradycardia. She has not required any pressors. 2 mild lactic acidosis with a lactic acid level of 3.7 post cardiac arrest 3 end-stage renal disease on hemodialysis 3 times a week MWF and the patient was approximately 1-1/2 hours into dialysis when she had this above-mentioned ev ents. She had missed 2 sessions of dialysis earlier the patient had a component of fluid overload. 4 shortness of breath secondary to above 5 diabetes mellitus type 2. No documented hypoglycemia. 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 We'll continue to closely follow the patient in the ICU, her mentation is appropriate, she is completely back to baseline, awake and alert, answering all questions appropriately, no neurologic deficits. No complaints of chest pain or shortness of breath, we'll continue to follow patient's labs, and chest x-rays. Case discussed with nephrology I performed a history & physical examination of the patient and discussed their management with my nurse practitioner, Maryann Louis. I reviewed the nurse practitioner's note and agree with the documented findings and plan of care. Lung sounds are positive for diminished breath sounds, and mild bibasilar crackles. The findings and the impression was discussed with the patient. I attest to the documentation by the nurse practitioner. Time with Patient: Less than 30
--- NOTE | 2020-07-14 14:59 | PN ---
PROGRESS NOTE A 64-year-old lady admitted to hospital with congestive heart failure, nausea, vomiting and shortness of breath. The patient has history of diastolic heart failure, end-stage renal disease on hemodialysis, hypertension, diabetes, dyslipidemia. She had elevated troponin not suggestive of myocardial infarction, is related to the renal failure. Had an echocardiogram that showed normal LV function without any evidence of pericardial effusion. The patient apparently had pulseless electrical activity on the floor and had been transferred to ICU. The exact etiology for her cardiac event is unclear. She had dialysis, got up and then apparently suddenly passed out and then she came out of it spontaneously. She received CPR. She has been admitted to ICU and has been doing well since. On exam, afebrile, heart rate is 53 beats per minute. Blood pressure is 138/85, respiratory rate 18. Chest exam reveals good air entry bilaterally. Heart exam reveals first and second heart sounds. No gallop. Exam of extremities did not reveal any edema. LABS: Show troponin of 0.1 secondary to renal failure. Hemoglobin is 10.1. She is in sinus rhythm. ASSESSMENT: 1. Cardiac arrest, exact etiology is unclear. Patient looks fine this morning. Her echo did not show pericardial effusion or wall motion abnormalities. 2. Elevated troponin. 3. Diastolic heart failure. PLAN: Patient will continue the aspirin, Coreg, Lasix and I will increase her activity today. MMODL / IJN: [id number] /
[2020-07-14 16:42] LABS: Glucose,Whole Blood 61 mg/dL (75-99)
[2020-07-14 16:56] LABS: Glucose,Whole Blood 60 mg/dL (75-99)
[2020-07-14 17:08] LABS: Glucose,Whole Blood 78 mg/dL (75-99)
[2020-07-14 17:50] LABS: Glucose,Whole Blood 122 mg/dL (75-99)
[2020-07-14 21:00] LABS: Glucose,Whole Blood 166 mg/dL (75-99)
[2020-07-14] MEDS: HYDROcodone/APAP 7.5-325MG 1 EACH TAB PO PRN (21:05)
[2020-07-14] MEDS: INSULIN DETEMIR (LEVEMIR) 100 UNIT/ML SYR SQ SCH (21:06)
[2020-07-14] MEDS: amLODIPine 10 MG TAB PO SCH (21:07)
[2020-07-15 00:06] LABS: Glucose,Whole Blood 186 mg/dL (75-99)
[2020-07-15] MEDS: HEPARIN SODIUM,PORCINE 5,000 UNIT/ML 1 ML VIAL SQ SCH ×3 (00:09→17:08)
[2020-07-15] MEDS ORDERED: INSULIN DETEMIR (LEVEMIR) 100 UNIT/ML SYR SQ SCH (04:12)
[2020-07-15 06:40] LABS: Glucose,Whole Blood 146 mg/dL (75-99)
[2020-07-15] MEDS: CALCIUM ACETATE 667 MG TAB PO SCH ×2 (06:46→17:08)
[2020-07-15] MEDS: carvediloL 12.5 MG TAB PO SCH ×2 (06:47→11:00)
[2020-07-15] MEDS: INSULIN ASPART (NovoLOG) 100 UNIT/ML VIAL SQ SCH ×4 (06:48→21:49)
[2020-07-15 07:09] LABS: HCT 30.8 % (34.0-46.0); HGB 9.8 gm/dL (11.4-16.0); Hypochromasia Slight; MCHC 31.7 g/dL (31.0-37.0); MCV 97.9 fL (80.0-100.0); Mean Platelet Volume 8.4; Platelet Count 203 k/uL (150-450); RBC 3.15 m/uL (3.80-5.40); RDW 13.9 % (11.5-15.5); WBC 7.5 k/uL (3.8-10.6)
[2020-07-15 07:32] LABS: Calcium 8.6 mg/dL (8.4-10.2); Potassium 3.9 mmol/L (3.5-5.1)
[2020-07-15] MEDS: NITROGLYCERIN OINT 1 INCH/GM PACKET TOPICAL SCH (08:17)
[2020-07-15] MEDS: FAMOTIDINE 20 MG TAB PO SCH (08:22)
[2020-07-15] MEDS: ASPIRIN 81 MG PO SCH (08:22)
[2020-07-15] MEDS: FUROSEMIDE 40 MG TAB PO SCH (08:23)
[2020-07-15 11:28] LABS: Glucose,Whole Blood 178 mg/dL (75-99)
[2020-07-15 12:37] LABS: Glucose,Whole Blood 169 mg/dL (75-99)
--- NOTE | 2020-07-15 13:38 | P.PN ---
Subjective Patient is admitted with pulmonary edema secondary to missing hemodialysis and nausea vomiting secondary to renal failure. Nausea vomiting improved presently. Patient was transferred to ICU yesterday as she had an episode of pulseless electrical activity patient was resuscitated there for about 10 minutes and received 2 doses of epinephrine. Patient is presently clinically doing well chest x-ray still showing some pulmonary edema. Patient had a normal ejection fraction. 07/15/2020 Patient is doing much better and patient will undergo dialysis tomorrow after that patient will be discharged patient is otherwise and patient's anasarca impr trever. Constitutional: Denied any fatigue denied any fever. Cardio vascular: denied any chest pain, palpitations Gastrointestinal denied any nausea vomiting Pulmonary: Denied any shortness of breath cough Neurologic denied any new focal deficits All inpatient medications were reviewed and appropriate changes in these medications as dictated in the interval history and assessment and plan. Objective - Vital Signs Vital signs: Vital Signs Temp 97.6 F 07/15/20 08:00 Pulse 56 L 07/15/20 10:00 Resp 16 07/15/20 10:00 BP 140/62 07/15/20 10:00 Pulse Ox 95 07/15/20 10:00 Intake & Output 07/14/20 07/15/20 07/15/20 18:59 06:59 18:59 Intake Total 20 Output Total 3000 0 0 Balance -2980 0 0 Weight 101.4 kg Intake: IV 20 0.9 20 Output: Urine 0 0 0 Hemodialysis 3000 Other: # Voids 0 1 0 # Bowel Movements 1 - Exam PHYSICAL EXAMINATION: GENERAL: The patient is alert and oriented x3, not in any acute distress. Well developed, well nourished. HEENT: Pupils are round and equally reacting to light. EOMI. No scleral icterus. No conjunctival pallor. Normocephalic, atraumatic. No pharyngeal erythema. No thyromegaly. CARDIOVASCULAR: S1 and S2 present. No murmurs, rubs, or gallops. PULMONARY: No wheezing or crackles are appreciated good air entry into bilateral lung [place] ABDOMEN: Soft, nontender, nondistended, normoactive bowel sounds. No palpable organomegaly. MUSCULOSKELETAL: No joint swelling or deformity. EXTREMITIES: No cyanosis, clubbing, still has significant bilateral pedal edema NEUROLOGICAL: Gross neurological examination did not reveal any focal deficits. SKIN: No rashes. - Labs CBC & Chem 7: 07/15/20 06:31 07/15/20 06:31 Labs: Abnormal Lab Results - Last 24 Hours (Table) 07/14/20 07/14/20 07/14/20 Range/Units 16:41 16:53 17:49 RBC (3.80-5.40) m/uL Hgb (11.4-16.0) gm/dL Hct (34.0-46.0) % Sodium (137-145) mmol/L BUN (7-17) mg/dL Creatinine (0.52-1.04) mg/dL Glucose (74-99) mg/dL POC Glucose (mg/dL) 61 L 60 L 122 H (75-99) mg/dL 07/14/20 07/15/20 07/15/20 Range/Units 20:59 00:05 06:31 RBC (3.80-5.40) m/uL Hgb (11.4-16.0) gm/dL Hct (34.0-46.0) % Sodium 135 L (137-145) mmol/L BUN 19 H (7-17) mg/dL Creatinine 5.99 H (0.52-1.04) mg/dL Glucose 153 H (74-99) mg/dL POC Glucose (mg/dL) 166 H 186 H (75-99) mg/dL 07/15/20 07/15/20 07/15/20 Range/Units 06:31 06:39 11:26 RBC 3.15 L (3.80-5.40) m/uL Hgb 9.8 L (11.4-16.0) gm/dL Hct 30.8 L (34.0-46.0) % Sodium (137-145) mmol/L BUN (7-17) mg/dL Creatinine (0.52-1.04) mg/dL Glucose (74-99) mg/dL POC Glucose (mg/dL) 146 H 178 H (75-99) mg/dL 07/15/20 Range/Units 12:36 RBC (3.80-5.40) m/uL Hgb (11.4-16.0) gm/dL Hct (34.0-46.0) % Sodium (137-145) mmol/L BUN (7-17) mg/dL Creatinine (0.52-1.04) mg/dL Glucose (74-99) mg/dL POC Glucose (mg/dL) 169 H (75-99) mg/dL Assessment and Plan Plan: -pulmonary edema which is again secondary to missing hemodialysis, patient had AV hemodialysis since admission patient is presently close to anemia on the session of dialysis tomorrow after the patient was discharged tomorrow -Cardio pulmonary arrest: Was successfully resuscitated patient had an episode of PE A received 2 rounds of epinephrine 1 amp of sodium bicarbonate and calcium gluconate -Severe nausea: Secondary to renal failure, patient will be continued on Zofran and Pepcid. He has some nausea significantly improved since admission -End-stage stage renal disease: Patient will need hemodialysis today usually Sunday schedule -Hyponatremia: Improved with hemodialysis -Mildly elevated troponin without any chest pain history: Secondary to renal failure -Type 2 diabetes mellitus: Uncontrolled elevated blood sugars: Patient will be resumed on her home regimen and titrate the insulin depending on her blood sugars. -Hypertension -Metabolic bone disease from renal failure -DVT prophylaxis with subcutaneous heparin from tomorrow as patient received hig h-dose Lovenox in spite of renal failure.
--- NOTE | 2020-07-15 14:23 | P.PN ---
Subjective Progress Note Date: 07/15/20 This is a 64-year-old. Patient is currently on hemodialysis for incisional disease. The patient is diabetic. The patient undergoes hemodialysis 3 times a week MW. She has chronic peripheral neuropathy involving the lower extremities and chronic lower extremity edema and lymphedema. She also has previous history of IBS and Mustafa's palsy. The patient was having nausea vomiting on outpatient basis. She missed 2 sessions of hemodialysis and she developed worsening shortness of breath and for that reason she was hospitalized on 07/12/2020. She had obviously increased edema. Her chest x-ray showed mild pulmonary vessel congestion and interstitial edema and small pleural effusions. The patient had mild heart failure. Her initial sodium level was 129. Her creatinine was up to 10.6 and her serum bicarb was 26. LFTs are within normal limits. D-dimer was 1. Coagulation profile was essentially within normal limits. The CPK was nonelevated at 83. Troponin was 0.042. ProBNP level was 42,700. The patient was undergoing hemodialysis this afternoon when she had to had stopped the dialysis to go to the bathroom and have a bowel movement. During the process, the patient spent quite a bit having a bowel movement and following that she came back to her bed and she acutely developed bradycardia and subsequently went into a PEA rhythm. Note that the patient already received hemodialysis for approximately 1.5 hours. She developed bradycardia and then she had agonal breathing and quickly went into PEA. At that point, CPR was initiated and the patient was given 2 rounds of epinephrine and 1 of sodium bicarb and calcium gluconate and she returned to spontaneous circulation following that. She did not get intubated. She was placed on on the percent on a beta facemasks. Upon return of smoking circulation her BP was 181 over 11. She did develop sinus rhythm and currently she is in sinus rhythm with a heart rate in the mid 50s. She had regained full consciousness and she was awake and alert and following commands and answering questions without any focal neurological deficits. She got moved to the intensive care unit. Blood gases was noted. No cervical metabolic acidosis. Lactic acid level was up to 3.7 following the code. Note that I repeated the blood work immediately in the ICU. Potassium level is at 3.2. The serum bicarb was 22. No other significant abnormalities on her blood work. Her blood gas showed a pH of 7.41 with a pCO2 of 43 and pO2 of 299. She denies having any chest pain. No pleurisy. No hemoptysis. The lynn virus Covid 19 PCR was negative. On patient seen in follow-up in the intensive care unit, she is currently awake and alert, she is oriented 3, she denies any acute distress, no complaint of chest and shortness of breath. Patient is currently on 2 L of oxygen her pulse ox is 98%, she's been afebrile, she remains bradycardic on the monitor, in sinus mechanism with a rate of 55-56 BPM, her Coreg remains on hold, yesterday patient has completed her hemodialysis and 2550 cc of fluid was removed with dialysis. She has had no recurrent issues overnight, electrolytes this morning have been reviewed showing sodium of 139, potassium is 4.0, chloride is 102, CO2 is 28, BUN of 28, creatinine is 7.71, troponin came back at 0.102. No fever or chills, no leukocytosis on today's labs, white blood cell count is 7.5, hemoglobin is 10.1. Echocardiogram has been completed showing left ventricular systolic function is normal with an EF of 55-60%, mild mitral regurg, mild tricuspid regurg with mild pulmonary hypertension and right-sided pressures of 35.8 mmHg. Her chest x-ray today shows small left pleural effusi on, cardiomegaly with prominent pulmonary vascular markings suggesting of of some volume overload. Patient will have another hemodialysis session today and the goal to remove 2-3 L. Lower extremity Dopplers showed no evidence of DVT on 07/15/2020, the patient is doing well. The patient underwent dialysis yesterday without any major difficulties. The patient is doing well. The patient is alert and awake and the patient has no specific complaints. Meanwhile, the patient was held on Coreg which probably was contributing to her bradycardia. No chest pain.a limited echocardiogram was done patient had an ejection fraction of 55-60%. No evidence of any significant pulmonary hypertension. Lower extremity DVT evaluation was negative. No fever. No chills. No other new complaints. the hemoglobin is at 9.8. BNP is at 19 with a creatinine of 5.99. Objective - Vital Signs Vital signs: Vital Signs Temp 97.6 F 07/15/20 08:00 Pulse 56 L 07/15/20 10:00 Resp 16 07/15/20 10:00 BP 140/62 07/15/20 10:00 Pulse Ox 95 07/15/20 10:00 Intake & Output 07/14/20 07/15/20 07/15/20 18:59 06:59 18:59 Intake Total 20 Output Total 3000 0 0 Balance -2980 0 0 Weight 101.4 kg Intake: IV 20 0.9 20 Output: Urine 0 0 0 Hemodialysis 3000 Other: # Voids 0 1 0 # Bowel Movements 1 - Exam GENERAL EXAM: Alert, very pleasant, 64-year-old white female on 2 L of oxygen pulse ox 98% comfortable in no apparent distress. HEAD: Normocephalic/atraumatic. EYES: Normal reaction of pupils, equal size. Conjunctiva pink, sclera white. NOSE: Clear with pink turbinates. THROAT: No erythema or exudates. NECK: No masses, no JVD, no thyroid enlargement, no adenopathy. CHEST: No chest wall deformity. Symmetrical expansion. LUNGS: Equal air entry with no crackles, wheeze, rhonchi or dullness. CVS: Regular rate and rhythm, normal S1 and S2, no gallops, no murmurs, no rubs ABDOMEN: Soft, nontender. No hepatosplenomegaly, normal bowel sounds, no guarding or rigidity. EXTREMITIES: No clubbing, no edema, no cyanosis, 2+ pulses and upper and lower extremities. MUSCULOSKELETAL: Muscle strength and tone normal. SPINE: No scoliosis or deformity SKIN: No rashes CENTRAL NERVOUS SYSTEM: Alert and oriented -3. No focal deficits, tone is normal in all 4 extremities. PSYCHIATRIC: Alert and oriented -3. Appropriate affect. Intact judgment and insight. - Labs CBC & Chem 7: 07/15/20 06:31 07/15/20 06:31 Labs: Abnormal Lab Results - Last 24 Hours (Table) 07/14/20 07/14/20 07/14/20 Range/Units 16:41 16:53 17:49 RBC (3.80-5.40) m/uL Hgb (11.4-16.0) gm/dL Hct (34.0-46.0) % Sodium (137-145) mmol/L BUN (7-17) mg/dL Creatinine (0.52-1.04) mg/dL Glucose (74-99) mg/dL POC Glucose (mg/dL) 61 L 60 L 122 H (75-99) mg/dL 07/14/20 07/15/20 07/15/20 Range/Units 20:59 00:05 06:31 RBC (3.80-5.40) m/uL Hgb (11.4-16.0) gm/dL Hct (34.0-46.0) % Sodium 135 L (137-145) mmol/L BUN 19 H (7-17) mg/dL Creatinine 5.99 H (0.52-1.04) mg/dL Glucose 153 H (74-99) mg/dL POC Glucose (mg/dL) 166 H 186 H (75-99) mg/dL 07/15/20 07/15/20 07/15/20 Range/Units 06:31 06:39 11:26 RBC 3.15 L (3.80-5.40) m/uL Hgb 9.8 L (11.4-16.0) gm/dL Hct 30.8 L (34.0-46.0) % Sodium (137-145) mmol/L BUN (7-17) mg/dL Creatinine (0.52-1.04) mg/dL Glucose (74-99) mg/dL POC Glucose (mg/dL) 146 H 178 H (75-99) mg/dL 07/15/20 Range/Units 12:36 RBC (3.80-5.40) m/uL Hgb (11.4-16.0) gm/dL Hct (34.0-46.0) % Sodium (137-145) mmol/L BUN (7-17) mg/dL Creatinine (0.52-1.04) mg/dL Glucose (74-99) mg/dL POC Glucose (mg/dL) 169 H (75-99) mg/dL Assessment and Plan Plan: 1 acute cardiac arrest. the patient has been resuscitated adequately and the patient recovered without any significant deficits. The exact cause is not clear for his underlying cardiac arrest. 2 mild lactic acidosis post cardiac arrest 3 end-stage renal disease on hemodialysis 3 times a week MWF , last dialysis session was yesterday 4 shortness of breath secondary to above 5 diabetes mellitus type 2. No documented hypoglycemia. 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
--- NOTE | 2020-07-15 15:58 | PN ---
PROGRESS NOTE Patient is seen for followup for end-stage renal disease. She is currently transferred out of the ICU. Patient denies any significant complaints. She tolerated her dialysis well yesterday. We had about 3 L of fluid removed. No significant complaints today. PHYSICAL EXAMINATION: Patient is comfortable. Blood pressure is 140/62, heart rate 56 per minute, she is afebrile. Examination of the heart S1, S2. Examination of the lungs, bilateral breath sounds are heard. Abdomen is soft, nontender. Examination of the lower extremities shows no evidence of edema. SHIP LINER exam grossly intact. LABS: Show sodium 135, potassium 3.9, chloride 98, CO2 is 28, BUN 19, creatinine 5.9, hemoglobin 9.8 g/dL. ASSESSMENT: 1. End-stage renal disease, on hemodialysis on a Sunday, Sunday, Sunday schedule. 2. Volume overload, currently improved. 3. Status post cardiac arrest. No evidence of DVT in the lower extremities. Troponin was borderline. No evidence of ischemic changes on EKG. No plans from Cardiology standpoint. 4. Chronic lower extremity lymphedema with volume overload and increased lower extremity edema, now improved. 5. Metabolic bone disease. 6. Hypertension, partly volume sensitive, now improved. PLAN: Hemodialysis in a.m. Patient can likely be discharged tomorrow post dialysis. MMODL / IJN: [id number] /
[2020-07-15 17:00] LABS: Glucose,Whole Blood 193 mg/dL (75-99)
[2020-07-15] MEDS: carvediloL 3.125 MG TAB PO SCH (17:08)
--- NOTE | 2020-07-15 17:10 | PN ---
PROGRESS NOTE Clarissa is feeling much better. Did not have any further syncopal events. She had been dialyzed and the heart failure symptoms have resolved. She has had bradycardia last night and the Coreg is currently on hold. On exam, heart rate is 56 beats per minute. Blood pressure is 140/72, respirations 16. Chest exam reveals good air entry bilaterally. Heart exam reveals first and second heart sounds. No gallop. Abdomen is soft. Exam of the extremities did not reveal any edema. Peripheral pulses are felt. Patient is currently on aspirin Norvasc Coreg, which is on hold, Lasix, Neurontin, insulin, and lisinopril. ASSESSMENT: 1. Acute exacerbation of chronic diastolic heart failure. 2. Elevated troponin. 3. Status post cardiac arrest of unclear etiology. PLAN: Patient is doing well. I will decrease the dose of Coreg to 3.25 b.i.d. LUIS FERNANDO / VI: [id number] /
[2020-07-15] MEDS: HYDROcodone/APAP 7.5-325MG 1 EACH TAB PO PRN (19:59)
[2020-07-15] MEDS: amLODIPine 10 MG TAB PO SCH (20:00)
[2020-07-15 21:19] LABS: Glucose,Whole Blood 95 mg/dL (75-99)
[2020-07-16] MEDS: HEPARIN SODIUM,PORCINE 5,000 UNIT/ML 1 ML VIAL SQ SCH ×3 (00:54→16:14)
[2020-07-16 06:25] LABS: Potassium 4.2 mmol/L (3.5-5.1)
[2020-07-16 06:59] LABS: Glucose,Whole Blood 116 mg/dL (75-99)
[2020-07-16] MEDS: INSULIN ASPART (NovoLOG) 100 UNIT/ML VIAL SQ SCH ×2 (07:22→11:49)
[2020-07-16] MEDS: CALCIUM ACETATE 667 MG TAB PO SCH (07:34)
[2020-07-16] MEDS: carvediloL 3.125 MG TAB PO SCH (07:37)
--- NOTE | 2020-07-16 11:14 | P.PN ---
Subjective This is a pleasant 64-year-old female past medical history significant for end-stage renal disease on hemodialysis, hypertension, dyslipidemia and diabetes mellitus. She follows in the office with Dr. Hein. She is seen and examined resting comfortably undergoing dialysis this morning. She has no symptoms of chest pain, shortness of breath, dizziness or palpitations. Blood pressure 144/75 heart rate 55 afebrile maintaining oxygen saturation on room air. Laboratory data reviewed, sodium 132, potassium 4.2, creatinine 7.3. Currently maintained on amlodipine 10 mg daily, aspirin 81 mg daily, Coreg 3.125 mg twice a day and Lasix 40 mg every other day. Yesterday her Coreg was decreased secondary to bradycardia. She continues to maintain a heart rate in the mid to high 50s. GENERAL: Well-appearing, well-nourished and in no acute distress. NECK: Supple without JVD or thyromegaly. LUNGS: Breath sounds clear to auscultation bilaterally. Respiration equal and unlabored. No wheezes, rales or rhonchi. HEART: Regular rate and rhythm with systolic ejection murmur at the base, no rubs or gallops. S1 and S2 heard. EXTREMITIES: Normal range of motion, no edema. No clubbing or cyanosis. Peripheral pulses intact. ASSESSMENT Acute on chronic diastolic heart failure, improved Chronic kidney disease on hemodialysis Status post cardiac arrest, PEA with ROSC after CPR and epi administration Hypertension Dyslipidemia Diabetes mellitus PLAN Stable on current medical regimen. Continue coreg at decreased dose. Nurse Practitioner note has been reviewed, I agree with a documented findings and plan of care. Patient was seen and examined. Objective - Vital Signs Vital signs: Vital Signs Temp 97.4 F L 07/16/20 04:56 Pulse 55 L 07/16/20 04:56 Resp 17 07/16/20 04:56 BP 144/75 07/16/20 04:56 Pulse Ox 94 L 07/16/20 04:56 Intake & Output 07/15/20 07/16/20 07/16/20 18:59 06:59 18:59 Intake Total 0 Output Total 0 0 Balance 0 0 Weight 88 kg Intake: IV 0 0.9 0 Output: Urine 0 0 Stool 0 Other: # Voids 0 0 - Labs CBC & Chem 7: 07/15/20 06:31 07/16/20 05:30 Labs: Abnormal Lab Results - Last 24 Hours (Table) 07/15/20 07/15/20 07/15/20 Range/Units 11:26 12:36 16:57 Sodium (137-145) mmol/L Chloride (98-107) mmol/L BUN (7-17) mg/dL Creatinine (0.52-1.04) mg/dL Glucose (74-99) mg/dL POC Glucose (mg/dL) 178 H 169 H 193 H (75-99) mg/dL 07/16/20 07/16/20 Range/Units 05:30 06:57 Sodium 132 L (137-145) mmol/L Chloride 97 L (98-107) mmol/L BUN 28 H (7-17) mg/dL Creatinine 7.30 H* (0.52-1.04) mg/dL Glucose 114 H (74-99) mg/dL POC Glucose (mg/dL) 116 H (75-99) mg/dL
[2020-07-16 11:17] LABS: Glucose,Whole Blood 114 mg/dL (75-99)
[2020-07-16 11:39] VITALS: TEMP 97.6
[2020-07-16] MEDS: FAMOTIDINE 20 MG TAB PO SCH (11:48)
[2020-07-16] MEDS: ASPIRIN 81 MG PO SCH (11:48)
[2020-07-16] MEDS: HYDROcodone/APAP 7.5-325MG 1 EACH TAB PO PRN (11:51)
--- NOTE | 2020-07-16 12:10 | P.PN ---
Subjective Progress Note Date: 07/16/20 Principal diagnosis: Acute cardiac arrest with return of spontaneous circulation This is a 64-year-old. Patient is currently on hemodialysis for incisional disease. The patient is diabetic. The patient undergoes hemodialysis 3 times a week MW. She has chronic peripheral neuropathy involving the lower extremities and chronic lower extremity edema and lymphedema. She also has previous history of IBS and Mustafa's palsy. The patient was having nausea vomiting on outpatient basis. She missed 2 sessions of hemodialysis and she developed worsening shortness of breath and for that reason she was hospitalized on 07/12/2020. She had obviously increased edema. Her chest x-ray showed mild pulmonary vessel congestion and interstitial edema and small pleural effusions. The patient had mild heart failure. Her initial sodium level was 129. Her creatinine was up to 10.6 and her serum bicarb was 26. LFTs are within normal limits. D-dimer was 1. Coagulation profile was essentially within normal limits. The CPK was nonelevated at 83. Troponin was 0.042. ProBNP level was 42,700. The patient was undergoing hemodialysis this afternoon when she had to had stopped the dialysis to go to the bathroom and have a bowel movement. During the process, the patient spent quite a bit having a bowel movement and following that she came back to her bed and she acutely developed bradycardia and subsequently went into a PEA rhythm. Note that the patient already received hemodialysis for approximately 1.5 hours. She developed bradycardia and then she had agonal breathing and quickly went into PEA. At that point, CPR was initiated and the patient was given 2 rounds of epinephrine and 1 of sodium bicarb and calcium gluconate and she returned to spontaneous circulation following that. She did not get intubated. She was placed on on the percent on a beta facemasks. Upon return of smoking circulation her BP was 181 over 11. She did develop sinus rhythm and currently she is in sinus rhythm with a heart rate in the mid 50s. She had regained full consciousness and she was awake and alert and following commands and answering questions without any focal neurological deficits. She got moved to the intensive care unit. Blood gases was noted. No cervical metabolic acidosis. Lactic acid level was up to 3.7 following the code. Note that I repeated the blood work immediately in the ICU. Potassium level is at 3.2. The serum bicarb was 22. No other significant abnormalities on her blood work. Her blood gas showed a pH of 7.41 with a pCO2 of 43 and pO2 of 299. She denies having any chest pain. No pleurisy. No hemoptysis. The lynn virus Covid 19 PCR was negative. On patient seen in follow-up in the intensive care unit, she is currently awake and alert, she is oriented 3, she denies any acute distress, no complaint of chest and shortness of breath. Patient is currently on 2 L of oxygen her pulse ox is 98%, she's been afebrile, she remains bradycardic on the monitor, in sinus mechanism with a rate of 55-56 BPM, her Coreg remains on hold, yesterday patient has completed her hemodialysis and 2550 cc of fluid was removed with dialysis. She has had no recurrent issues overnight, electrolytes this morning have been reviewed showing sodium of 139, potassium is 4.0, chloride is 102, CO2 is 28, BUN of 28, creatinine is 7.71, troponin came back at 0.102. No fever or chills, no leukocytosis on today's labs, white blood cell count is 7.5, hemoglobin is 10.1. Echocardiogram has been completed showing left ventricular systolic function is normal with an EF of 55-60%, mild mitral regurg, mild tricuspid regurg with mild pulmonary hypertension and right-sided pressures of 35.8 mmHg. Her chest x-ray today shows small left pleural effusion, cardiomegaly with prominent pulmonary vascular markings suggesting of of some volume overload. Patient will have another hemodialysis session today and the goal to remove 2-3 L. Lower extremity Dopplers showed no evidence of DVT on 07/15/2020, the patient is doing well. The patient underwent dialysis yesterday without any major difficulties. The patient is doing well. The patient is alert and awake and the patient has no specific complaints. Meanwhile, the patient was held on Coreg which probably was contributing to her bradycardia. No chest pain.a limited echocardiogram was done patient had an ejection fraction of 55-60%. No evidence of any significant pulmonary hyperten noel. Lower extremity DVT evaluation was negative. No fever. No chills. No other new complaints. the hemoglobin is at 9.8. BNP is at 19 with a creatinine of 5.99. The patient is seen today 07/16/2020 in follow-up on the regular medical floor. She is currently sitting up at the bedside. Awake and alert in no acute distress. She is maintaining good O2 saturations in the mid 90s on room air. She's been afebrile. Sodium 132. Potassium 4.2. Creatinine 7.30. Currently receiving hemodialysis. Objective - Vital Signs Vital signs: Vital Signs Temp 97.6 F 07/16/20 11:37 Pulse 61 07/16/20 12:05 Resp 15 07/16/20 11:37 BP 165/76 07/16/20 12:05 Pulse Ox 97 07/16/20 12:05 Intake & Output 07/15/20 07/16/20 07/16/20 18:59 06:59 18:59 Intake Total 0 Output Total 0 0 Balance 0 0 Weight 88 kg Intake: IV 0 0.9 0 Output: Urine 0 0 Stool 0 Other: # Voids 0 0 - Exam GENERAL EXAM: Alert, very pleasant, 64-year-old white female on room air, comfortable in no apparent distress. HEAD: Normocephalic/atraumatic. EYES: Normal reaction of pupils, equal size. Conjunctiva pink, sclera white. NOSE: Clear with pink turbinates. THROAT: No erythema or exudates. NECK: No masses, no JVD, no thyroid enlargement, no adenopathy. CHEST: No chest wall deformity. Symmetrical expansion. LUNGS: Equal air entry with faint crackles in the posterior bases. CVS: Regular rate and rhythm, normal S1 and S2, no gallops, no murmurs, no rubs ABDOMEN: Soft, nontender. No hepatosplenomegaly, normal bowel sounds, no guarding or rigidity. EXTREMITIES: No clubbing, no edema, no cyanosis, 2+ pulses and upper and lower extremities. MUSCULOSKELETAL: Muscle strength and tone normal. SPINE: No scoliosis or deformity SKIN: No rashes CENTRAL NERVOUS SYSTEM: No focal deficits, tone is normal in all 4 extremities. PSYCHIATRIC: Alert and oriented -3. Appropriate affect. Intact judgment and insight. - Labs CBC & Chem 7: 07/15/20 06:31 07/16/20 05:30 Labs: Abnormal Lab Results - Last 24 Hours (Table) 07/15/20 07/15/20 07/16/20 Range/Units 12:36 16:57 05:30 Sodium 132 L (137-145) mmol/L Chloride 97 L (98-107) mmol/L BUN 28 H (7-17) mg/dL Creatinine 7.30 H* (0.52-1.04) mg/dL Glucose 114 H (74-99) mg/dL POC Glucose (mg/dL) 169 H 193 H (75-99) mg/dL 07/16/20 07/16/20 Range/Units 06:57 11:15 Sodium (137-145) mmol/L Chloride (98-107) mmol/L BUN (7-17) mg/dL Creatinine (0.52-1.04) mg/dL Glucose (74-99) mg/dL POC Glucose (mg/dL) 116 H 114 H (75-99) mg/dL Assessment and Plan Assessment: 1 acute cardiac arrest. the patient has been resuscitated adequately and the patient recovered without any significant deficits. The exact cause is not clear for his underlying cardiac arrest. 2 mild lactic acidosis post cardiac arrest 3 end-stage renal disease on hemodialysis 3 times a week MWF , last dialysis session was yesterday 4 shortness of breath secondary to above 5 diabetes mellitus type 2. No documented hypoglycemia. 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 Campos Currently stable from the pulmonary and critical care standpoint Currently receiving hemodialysis On room air We will see on an as-needed basis I, the cosigning physician, performed a history & physical examination of the patient. Lungs sounds with faint crackles in the posterior bases. Maintaining g ood O2 saturations in the 90s on room air. I discussed the assessment and plan of care with my nurse practitioner, Marie Daniel. I attest to the above note as dictated by her.
[2020-07-16 12:40] VITALS: BP 183/70; PULSE 57; RESP 16
--- NOTE | 2020-07-16 15:38 | P.DS ---
Providers Date of admission: 07/12/20 22:50 Attending physician: Brandon Boyd MD Consults: 07/12/20 22:50 Consult Physician Routine Consulting Provider: Kira Tomlin Consult Reason/Comments: chf Do you want consulting provider notified?: Yes Consult Physician Routine Consulting Provider: Gwen Ulrich Consult Reason/Comments: crf, pulmonary edema Do you want consulting provider notified?: Yes 07/13/20 18:02 Consult Physician Routine Consulting Provider: Lian Campos Consult Reason/Comments: icu management Do you want consulting provider notified?: Already Contacted Primary care physician: Piedad Con[facility] Hospital Course: Patient is admitted with pulmonary edema secondary to missing hemodialysis and nausea vomiting secondary to renal failure. Nausea vomiting improved presently. Patient was transferred to ICU yesterday as she had an episode of pulseless electrical activity patient was resuscitated there for about 10 minutes and received 2 doses of epinephrine. Patient is presently clinically doing well chest x-ray still showing some pulmonary edema. Patient had a normal ejection fraction. 07/15/2020 Patient is doing much better and patient will undergo dialysis tomorrow after that patient will be discharged patient is otherwise and patient's anasarca improved. 07/16/2020 Patient swelling and anasarca improved patient is bit hyponatremic and creatinine went up will receive hemodialysis today and after that patient will be discharged patient blood pressure is elevated since her coronary dose was cut down because of bradycardia. Eval is in and will be discharged today PHYSICAL EXAMINATION: GENERAL: The patient is alert and oriented x3, not in any acute distress. Well developed, well nourished. HEENT: Pupils are round and equally reacting to light. EOMI. No scleral icterus. No conjunctival pallor. Normocephalic, atraumatic. No pharyngeal erythema. No thyromegaly. CARDIOVASCULAR: S1 and S2 present. No murmurs, rubs, or gallops. PULMONARY: No wheezing or crackles are appreciated good air entry into bilateral lung [place] ABDOMEN: Soft, nontender, nondistended, normoactive bowel sounds. No palpable organomegaly. MUSCULOSKELETAL: No joint swelling or deformity. EXTREMITIES: No cyanosis, clubbing, still has significant bilateral pedal edema NEUROLOGICAL: Gross neurological examination did not reveal any focal deficits. SKIN: No rashes. Assessment and Plan Plan: -pulmonary edema which is again secondary to missing hemodialysis, patient received daily him on hemodialysis since hospitalization. Clinically doing well and patient will be discharged today -Cardio pulmonary arrest: Was successfully resuscitated patient had an episode of PE A received 2 rounds of epinephrine 1 amp of sodium bicarbonate and calcium gluconate. Patient was bradycardic, and was on hold a dose of which is being cut down to very low-dose. -Severe nausea: Secondary to renal failure, patient will be continued on Zofran and Pepcid. He has some nausea significantly improved since admission -End-stage stage renal disease: Patient will need hemodialysis today usually Sunday schedule -Hyponatremia: Improved with hemodialysis -Mildly elevated troponin without any chest pain history: Secondary to renal failure -Type 2 diabetes mellitus: Fairly well controlled on present regimen discharged on present regimen -Hypertension: Blood pressure is significantly elevated patient was started on hydralazine -Metabolic bone disease from renal failure Plan - Discharge Summary Discharge Rx Participant: No New Discharge Prescriptions: New carvediloL [Coreg] 3.125 mg PO BID-W/MEALS #30 tab hydrALAZINE HCL [Apresoline] 50 mg PO TID #90 tab Continue Gabapentin [Neurontin] 300 mg PO DAILY PRN PRN Reason: NERVE PAIN Aspirin [Adult Low Dose Aspirin EC] 81 mg PO DAILY amLODIPine [Norvasc] 10 mg PO HS Insulin Glargine,Hum.rec.anlog [Basaglar Kwikpen U-100] 21 unit SQ HS Furosemide [Lasix] 40 mg PO SUTUTHSA Ondansetron HCl [Zofran] 4 mg PO Q8H PRN PRN Reason: Nausea And Vomiting Lidocaine-Prilocaine Cream [Emla Cream 2.5%/2.5%] 1 applic TOPICAL MOWEFR PRN PRN Reason: DIALYIS DAYS INSULIN ASPART (NovoLOG) [NovoLOG (formulary)] See Protocol SQ AC-TID Calcium Acetate [PhosLo] 667 mg PO DAILY PRN PRN Reason: with a snack Calcium Acetate [PhosLo] 1,334 mg PO AC-BID INSULIN ASPART (NovoLOG) [NovoLOG (formulary)] 10 unit SQ AC-TID HYDROcodone/APAP 7.5-325MG [[place] 7.5-325] 1 tablet PO BID PRN PRN Reason: Pain Discontinued Carvedilol 25 mg PO BID Colchicine [Colcrys] See Taper PO DIRECTED PRN PRN Reason: GOUT Discharge Medication List Gabapentin [Neurontin] 300 mg PO DAILY PRN 06/27/16 [History] Aspirin [Adult Low Dose Aspirin EC] 81 mg PO DAILY 09/16/16 [History] amLODIPine [Norvasc] 10 mg PO HS 11/29/16 [History] Insulin Glargine,Hum.rec.anlog [Basaglar Kwikpen U-100] 21 unit SQ HS 07/08/18 [History] Furosemide [Lasix] 40 mg PO SUTUTHSA 04/15/19 [History] Lidocaine-Prilocaine Cream [Emla Cream 2.5%/2.5%] 1 applic TOPICAL MOWEFR PRN 05/19/20 [History] Ondansetron HCl [Zofran] 4 mg PO Q8H PRN 05/19/20 [History] Calcium Acetate [PhosLo] 1,334 mg PO AC-BID 07/12/20 [History] Calcium Acetate [PhosLo] 667 mg PO DAILY PRN 07/12/20 [History] INSULIN ASPART (NovoLOG) [NovoLOG (formulary)] 10 unit SQ AC-TID 07/12/20 [History] INSULIN ASPART (NovoLOG) [NovoLOG (formulary)] See Protocol SQ AC-TID 07/12/20 [History] HYDROcodone/APAP 7.5-325MG [[place] 7.5-325] 1 tablet PO BID PRN 07/13/20 [History] carvediloL [Coreg] 3.125 mg PO BID-W/MEALS #30 tab 07/16/20 [Rx] hydrALAZINE HCL [Apresoline] 50 mg PO TID #90 tab 07/16/20 [Rx] Follow up Appointment(s)/Referral(s): Ross Hein MD [STAFF PHYSICIAN] - 2 Weeks Piedad Ingram III, MD [Primary Care Provider] - 3 Days Lian Campos MD [STAFF PHYSICIAN] - 1 Week Discharge Disposition: HOME SELF-CARE
--- NOTE | 2020-07-16 17:03 | PN ---
PROGRESS NOTE Patient is seen for followup for end-stage renal disease. She is currently seen on hemodialysis, tolerating her treatment well. Patient denies any significant complaints. PHYSICAL EXAMINATION: Blood pressure was elevated at 165/76, heart rate 59 per minute. Patient is afebrile. There is edema noted in bilateral lower extremities with lymphedema as well. Chronic skin changes noted bilaterally, worse on the right leg. Abdomen is soft, morbidly obese. LOCATION ANALYST exam grossly intact. LABS: Labs show sodium 132, potassium 4.2, serum creatinine 7.3 mg/dL. ASSESSMENT: 1. End-stage renal disease, on hemodialysis on a Sunday, Sunday, Sunday schedule. Patient can be discharged post dialysis and follow up for dialysis on Sunday as outpatient. 2. Status post cardiac arrest with all workup negative, including no evidence of PE or acute PA. Rhythm has been stable. 3. Volume overload, now improved. 4. Chronic kidney disease mineral bone disorder. PLAN: Goal UF about 3 L. The patient can be discharged post dialysis. Follow up as outpatient on Sunday. Continue to maintain salt and fluid restriction. MMODL / IJN: [id number] /
--- NOTE | 2020-07-18 13:08 | CDI ---
Documentation Clarification Form Date: 07/18/20 From: Audrey Acevedo Phone: If you have a question about this query, please contact Ingrid Eaton, Manager Of Software Development at [phone] between 8am and 5pm. Admit Date: 07/12/20 Discharge Date: 04/15/20 Patient Name: NASREEN TINOCO Visit Number: [id number] ATTENTION: The Clinical Documentation Specialists (CDI) and [facility] Coding Staff appreciate your assistance in clarifying documentation. Please respond to the clarification below the line at the bottom and electronically sign. The CDI & [facility] Coding staff will review the response and follow-up if needed. Please note: Queries are made part of the Legal Health Record. If you have any questions, please contact the author of this message via ITS. Dear Dr. Mack Martinez, The patient has Type 2 diabetes: uncontolled elevated blood sugars, as indicated on H&P. POC Glucose: 442, 263, 235, 77, 83, 82, 85, 114, 250, 61, 60, 78, 122, 166, 186, 146, 178, 169, 193, 95, 116, 114 Glucose: 442, 111, 169, 153, 114 a1C: 7.9 Treatment: blood glucose monitoring ACHS, consistent carbohydrate diet, Humi;om R 10 U iv stat, [id number]/ml Insulin pin Per [facility] 2016 - query the provider for clarification whether the patient has hyperglycemia or hypoglycemia so that the appropriate code may be reported - uncontrolled diabetes indicates that the patient's blood sugar is not at an acceptable level, because it is either too high or too low. In order to capture the severity of Illness and necessary documentation specificity, please clarify if Type 2 uncontrolled diabetes is: Hyperglycemia Hypoglycemia Other, please specify Unable to Determine Hyperglycemia MTDD
== END 2020-07-16 16:37 | disposition home or self-care (01) | DRG 291 ==
LOC: EC 20:34 → 3SCARD 22:50 → 2SICU 07-13 15:38 → 6NMEDSUR 07-15 22:12
PROVIDERS: ADMIT Internal Medicine; ATTEND Internal Medicine
PROC: 5A12012 Performance of Cardiac Output, Single, Manual (ICD-10-PCS; principal; 2020-07-13)
PROC: 5A1D70Z Performance of Urinary Filtration, Intermittent, Less than 6 Hours Per Day (ICD-10-PCS; 2020-07-13)
PROC: 02HV33Z Insertion of Infusion Device into Superior Vena Cava, Percutaneous Approach (ICD-10-PCS; 2020-07-13)
DX: I13.2 Hypertensive heart and chronic kidney disease with heart failure and with stage 5 chronic kidney disease, or end stage renal disease (principal); N18.6 End stage renal disease; I50.33 Acute on chronic diastolic (congestive) heart failure; I46.9 Cardiac arrest, cause unspecified; E87.1 Hypo-osmolality and hyponatremia; E87.2 Acidosis; I27.20 Pulmonary hypertension, unspecified; E83.9 Disorder of mineral metabolism, unspecified; I95.9 Hypotension, unspecified; E11.22 Type 2 diabetes mellitus with diabetic chronic kidney disease; E11.42 Type 2 diabetes mellitus with diabetic polyneuropathy; E11.65 Type 2 diabetes mellitus with hyperglycemia; Z79.4 Long term (current) use of insulin; Z99.2 Dependence on renal dialysis; Z20.828 Contact with and (suspected) exposure to other viral communicable diseases; E78.5 Hyperlipidemia, unspecified; I08.1 Rheumatic disorders of both mitral and tricuspid valves; R00.1 Bradycardia, unspecified; I25.10 Atherosclerotic heart disease of native coronary artery without angina pectoris; M10.9 Gout, unspecified; K58.9 Irritable bowel syndrome, unspecified; I89.0 Lymphedema, not elsewhere classified; R79.89 Other specified abnormal findings of blood chemistry; Z79.82 Long term (current) use of aspirin; Z79.899 Other long term (current) drug therapy; Z86.69 Personal history of other diseases of the nervous system and sense organs; Z90.49 Acquired absence of other specified parts of digestive tract; Z87.19 Personal history of other diseases of the digestive system; Z98.51 Tubal ligation status; Z86.79 Personal history of other diseases of the circulatory system; Z96.1 Presence of intraocular lens; Z98.41 Cataract extraction status, right eye; Z98.891 History of uterine scar from previous surgery; Z98.42 Cataract extraction status, left eye; Z98.890 Other specified postprocedural states; Z88.2 Allergy status to sulfonamides; Z83.3 Family history of diabetes mellitus; Z80.42 Family history of malignant neoplasm of prostate; Z80.3 Family history of malignant neoplasm of breast
CPT/HCPCS: 36415; 36600; 71045; 71046; 78582; 80048; 80053; 82150; 82550; 82805; 83036; 83605; 83690; 83735; 83880; 84100; 84484; 85025; 85027; 85379; 85610; 85730; 87040; 90935; 93005; 93306; 93970; 94640; 96372; 96374; 96375; 99285

== ENCOUNTER 2020-11-01 10:52 | Inpatient (IN) | payer MEDICARE, BC ==
[2020-11-01] MEDS ORDERED: hydrALAZINE HCL 20 MG/ML 1 ML VIAL IVP STA (11:35)
--- NOTE | 2020-11-01 11:56 | ED ---
General Adult HPI - General Source: patient, RN notes reviewed Mode of arrival: wheelchair Limitations: no limitations <Sanjeev Kang - Last Filed: 11/01/20 13:18> <Iris Junior - Last Filed: 11/04/20 00:35> - General Chief complaint: Shortness of Breath Stated complaint: SOB Time Seen by Provider: 11/01/20 11:13 - History of Present Illness Initial comments: This a 64-year-old female presents emergency Department chief complaint of shortness of breath. Patient's been having increasing shortness breath over the last couple days. She is concerned that she has covid family members in the house have been tested positive. She recently started becoming symptomatic. Patient does have a history of diabetes, hypertension on dialysis. Last dialysis was Sunday. She states her days are switched because of recent Covid exposure. Patient denies any abdominal complaints denies any spinning fevers or chills that she's had some nausea vomiting diarrhea. She states that she has chronic wound on her legs which has not worsened usual. She has not checked her blood sugar today. Patient has not taken her blood pressure medication patient noted to be hypertensive. Patient denies chest pain. (Sanjeev Kang) - Related Data Home Medications Medication Instructions Recorded Confirmed Gabapentin [Neurontin] 300 mg PO DAILY PRN 06/27/16 11/03/20 Aspirin [Adult Low Dose Aspirin EC] 81 mg PO DAILY 09/16/16 11/03/20 amLODIPine [Norvasc] 10 mg PO HS 11/29/16 11/03/20 Insulin Glargine,Hum.rec.anlog 21 unit SQ HS 07/08/18 11/03/20 [Vin Rollins U-100] Lidocaine-Prilocaine Cream [Emla 1 applic TOPICAL TUTHSA PRN 05/19/20 11/03/20 Cream 2.5%/2.5%] Ondansetron HCl [Zofran] 4 mg PO Q8H PRN 05/19/20 11/03/20 Calcium Acetate [PhosLo] 1,334 mg PO AC-BID 07/12/20 11/03/20 Calcium Acetate [PhosLo] 667 mg PO DAILY PRN 07/12/20 11/03/20 INSULIN ASPART (NovoLOG) [NovoLOG 10 unit SQ AC-TID 07/12/20 11/03/20 (formulary)] INSULIN ASPART (NovoLOG) [NovoLOG See Protocol SQ AC-TID 07/12/20 11/03/20 (formulary)] HYDROcodone/APAP 7.5-325MG [[place] 1 tablet PO BID PRN 07/13/20 11/03/20 7.5-325] Furosemide [Lasix] 80 mg PO BID 11/01/20 11/03/20 methylPREDNISolone Dose Pack See Taper PO DIRECTED 11/03/20 11/03/20 [Medrol Dose Pack] Previous Rx's Medication Instructions Recorded carvediloL [Coreg] 3.125 mg PO BID-W/MEALS #30 tab 07/16/20 hydrALAZINE HCL [Apresoline] 50 mg PO TID #90 tab 07/16/20 Famotidine [Pepcid] 20 mg PO BID #30 tablet 11/02/20 Ondansetron Odt [Zofran Odt] 4 mg PO Q8HR PRN #30 tab 11/02/20 Zinc Sulfate 220 mg PO BID #20 capsule 11/02/20 Allergies Allergy/AdvReac Type Severity Reaction Status Date / Time sulfamethoxazole AdvReac Nausea & Verified 11/03/20 19:41 [From Bactrim] Vomiting,dyspnea trimethoprim [From Bactrim] AdvReac Nausea & Verified 11/03/20 19:41 Vomiting,dyspnea Review of Systems ROS Other: All systems not noted in ROS Statement are negative. <Sanjeev Kang - Last Filed: 11/01/20 13:18> ROS Other: All systems not noted in ROS Statement are negative. <Iris Junior - Last Filed: 11/04/20 00:35> ROS Statement: Those systems with pertinent positive or pertinent negative responses have been documented in the HPI. Past Medical History Past Medical History: Diabetes Mellitus, Hypertension, Renal Disease Additional Past Medical History / Comment(s): ESRD with hemodialysis M/W/F, IDDM type II, past DKA, neuropathy bilateral feet/legs and alittle in hands, "fast heart rate"-had cardiac ablation, lymphedema bilateral lower legs/feet, gout R knee, mineral bone disease, IBS, R sided Mustafa's palsey. History of Any Multi-Drug Resistant Organisms: None Reported Past Surgical History: Appendectomy, Cardiac Ablation, Section, Cholecystectomy, Tubal Ligation Additional Past Surgical History / Comment(s): bilateral cataract removal with lens implants, C-sections, bilateral benign breast biopsies, AV graft left arm done 06-23-16 for dialysis, colonoscopy. Past Anesthesia/Blood Transfusion Reactions: Motion Sickness, Postoperative Nausea & Vomiting (PONV) Past Psychological History: No Psychological Hx Reported Smoking Status: Never smoker Past Alcohol Use History: None Reported Past Drug Use History: None Reported - Past Family History Father Family Medical History: Cancer, Diabetes Mellitus Additional Family Medical History / Comment(s): Father had prostate cancer. Mother Family Medical History: Cancer Additional Family Medical History / Comment(s): Mother had breast cancer. <Sanjeev Kang - Last Filed: 11/01/20 13:18> General Exam Limitations: no limitations General appearance: alert, in no apparent distress Head exam: Present: atraumatic, normocephalic, normal inspection Eye exam: Present: normal appearance, PERRL, EOMI. Absent: scleral icterus, conjunctival injection, periorbital swelling ENT exam: Present: normal exam, mucous membranes moist Neck exam: Present: normal inspection. Absent: tenderness, meningismus, lym phadenopathy Respiratory exam: Present: normal lung sounds bilaterally. Absent: respiratory distress, wheezes, rales, rhonchi, stridor Cardiovascular Exam: Present: regular rate, normal rhythm, normal heart sounds. Absent: systolic murmur, diastolic murmur, rubs, gallop, clicks GI/Abdominal exam: Present: soft, normal bowel sounds. Absent: distended, tenderness, guarding, rebound, rigid Extremities exam: Present: other (Old healing sores on right lower extremity) Neurological exam: Present: alert, oriented X3, CN II-XII intact Skin exam: Present: warm, dry, intact, normal color. Absent: rash <Sanjeev Kang - Last Filed: 11/01/20 13:18> Course Vital Signs 11/01/20 11/01/20 11/01/20 11:06 12:17 12:30 Temperature 98.9 F Pulse Rate 73 Respiratory 24 23 Rate Blood Pressure 237/186 176/81 O2 Sat by Pulse 99 Oximetry 11/01/20 11/01/20 11/01/20 14:00 14:12 14:52 Temperature 98.8 F Pulse Rate 80 79 77 Respiratory 18 22 20 Rate Blood Pressure 194/91 191/89 O2 Sat by Pulse 97 97 97 Oximetry EKG Findings - EKG Comments: EKG Findings:: EKG performed at 11:42 normal sinus rhythm rate of 78 UT 178 QRS 80 QT/QTC 42/549 prolonged QT noted <Sanjeev Kang - Last Filed: 11/01/20 13:18> Medical Decision Making - Lab Data Result diagrams: 11/01/20 11:49 11/01/20 11:49 <Sanjeev Kang - Last Filed: 11/01/20 13:18> - Lab Data Result diagrams: 11/01/20 11:49 11/01/20 11:49 <Iris Junior - Last Filed: 11/04/20 00:35> - Medical Decision Making 64-year-old presented for shortness breath. Patient is covid Positive. Patient does have chronic renal failure with evidence of interstitial edema, elevated potassium. Patient's troponin is elevated though patient is sexually no chest pain. Patient will be admitted for dialysis, further management treatment. (Sanjeev Kang) I was available for consultation in the emergency department. The history and physical exam were done by the midlevel provider. I was consulted for this patients care. I reviewed the case with the midlevel provider and based on their presentation of the patient, I agree with the assessment, medical decision making and plan of care as documented. Chart was dictated using [employer] dictation software. Attempts were made to correct any dictation errors however some typographical errors may persist. Patient was seen during a national state of emergency due to the Covid-19 pandemic. (Iris Junior) - Lab Data Lab Results 11/01/20 11/01/20 11/01/20 Range/Units 11:49 11:49 11:49 WBC 5.8 (3.8-10.6) k/uL RBC 3.75 L (3.80-5.40) m/uL Hgb 11.7 (11.4-16.0) gm/dL Hct 35.4 (34.0-46.0) % MCV 94.4 (80.0-100.0) fL MCH 31.1 (25.0-35.0) pg MCHC 33.0 (31.0-37.0) g/dL RDW 14.7 (11.5-15.5) % Plt Count 232 (150-450) k/uL MPV 8.1 Neutrophils % 66 % Lymphocytes % 18 % Monocytes % 11 % Eosinophils % 1 % Basophils % 2 % Neutrophils # 3.8 (1.3-7.7) k/uL Lymphocytes # 1.0 (1.0-4.8) k/uL Monocytes # 0.6 (0-1.0) k/uL Eosinophils # 0.1 (0-0.7) k/uL Basophils # 0.1 (0-0.2) k/uL PT 11.5 (9.0-12.0) sec INR 1.1 (<1.2) APTT 23.2 (22.0-30.0) sec Sodium 133 L (137-145) mmol/L Potassium 5.4 H (3.5-5.1) mmol/L Chloride 93 L (98-107) mmol/L Carbon Dioxide 24 (22-30) mmol/L Anion Gap 16 mmol/L BUN 32 H (7-17) mg/dL Creatinine 7.29 H* (0.52-1.04) mg/dL Est GFR (CKD-EPI)AfAm 6 (>60 ml/min/1.73 sqM) Est GFR (CKD-EPI)NonAf 5 (>60 ml/min/1.73 sqM) Glucose 312 H (74-99) mg/dL POC Glucose (mg/dL) (75-99) mg/dL POC Glu Machine Operator Replanter ID Lactic Ac Sepsis Rflx Plasma Lactic Acid [place] (0.7-2.0) mmol/L Calcium 9.2 (8.4-10.2) mg/dL Phosphorus 5.2 H (2.5-4.5) mg/dL Magnesium 2.5 H (1.6-2.3) mg/dL Total Bilirubin 1.0 (0.2-1.3) mg/dL AST 26 (14-36) U/L ALT 21 (4-34) U/L Alkaline Phosphatase 157 H (38-126) U/L Troponin I (0.000-0.034) ng/mL NT-Pro-B Natriuret Pep pg/mL Total Protein 9.1 H (6.3-8.2) g/dL Albumin 4.4 (3.5-5.0) g/dL Coronavirus (PCR) (Not Detectd) 11/01/20 11/01/20 11/01/20 Range/Units 11:49 11:49 11:49 WBC (3.8-10.6) k/uL RBC (3.80-5.40) m/uL Hgb (11.4-16.0) gm/dL Hct (34.0-46.0) % MCV (80.0-100.0) fL MCH (25.0-35.0) pg MCHC (31.0-37.0) g/dL RDW (11.5-15.5) % Plt Count (150-450) k/uL MPV Neutrophils % % Lymphocytes % % Monocytes % % Eosinophils % % Basophils % % Neutrophils # (1.3-7.7) k/uL Lymphocytes # (1.0-4.8) k/uL Monocytes # (0-1.0) k/uL Eosinophils # (0-0.7) k/uL Basophils # (0-0.2) k/uL PT (9.0-12.0) sec INR (<1.2) APTT (22.0-30.0) sec Sodium (137-145) mmol/L Potassium (3.5-5.1) mmol/L Chloride (98-107) mmol/L Carbon Dioxide (22-30) mmol/L Anion Gap mmol/L BUN (7-17) mg/dL Creatinine (0.52-1.04) mg/dL Est GFR (CKD-EPI)AfAm (>60 ml/min/1.73 sqM) Est GFR (CKD-EPI)NonAf (>60 ml/min/1.73 sqM) Glucose (74-99) mg/dL POC Glucose (mg/dL) (75-99) mg/dL POC Glu Machine Operator Replanter ID Lactic Ac Sepsis Rflx Plasma Lactic Acid [place] 3.2 H* (0.7-2.0) mmol/L Calcium (8.4-10.2) mg/dL Phosphorus (2.5-4.5) mg/dL Magnesium (1.6-2.3) mg/dL Total Bilirubin (0.2-1.3) mg/dL AST (14-36) U/L ALT (4-34) U/L Alkaline Phosphatase (38-126) U/L Troponin I 0.145 H* (0.000-0.034) ng/mL NT-Pro-B Natriuret Pep 73058 pg/mL Total Protein (6.3-8.2) g/dL Albumin (3.5-5.0) g/dL Coronavirus (PCR) (Not Detectd) 11/01/20 11/01/20 11/01/20 Range/Units 11:49 12:29 12:45 WBC (3.8-10.6) k/uL RBC (3.80-5.40) m/uL Hgb (11.4-16.0) gm/dL Hct (34.0-46.0) % MCV (80.0-100.0) fL MCH (25.0-35.0) pg MCHC (31.0-37.0) g/dL RDW (11.5-15.5) % Plt Count (150-450) k/uL MPV Neutrophils % % Lymphocytes % % Monocytes % % Eosinophils % % Basophils % % Neutrophils # (1.3-7.7) k/uL Lymphocytes # (1.0-4.8) k/uL Monocytes # (0-1.0) k/uL Eosinophils # (0-0.7) k/uL Basophils # (0-0.2) k/uL PT (9.0-12.0) sec INR (<1.2) APTT (22.0-30.0) sec Sodium (137-145) mmol/L Potassium (3.5-5.1) mmol/L Chloride (98-107) mmol/L Carbon Dioxide (22-30) mmol/L Anion Gap mmol/L BUN (7-17) mg/dL Creatinine (0.52-1.04) mg/dL Est GFR (CKD-EPI)AfAm (>60 ml/min/1.73 sqM) Est GFR (CKD-EPI)NonAf (>60 ml/min/1.73 sqM) Glucose (74-99) mg/dL POC Glucose (mg/dL) 296 H (75-99) mg/dL POC Glu Machine Operator Replanter ID Sujatha Ayoub Lactic Ac Sepsis Rflx Y Plasma Lactic Acid [place] (0.7-2.0) mmol/L Calcium (8.4-10.2) mg/dL Phosphorus (2.5-4.5) mg/dL Magnesium (1.6-2.3) mg/dL Total Bilirubin (0.2-1.3) mg/dL AST (14-36) U/L ALT (4-34) U/L Alkaline Phosphatase (38-126) U/L Troponin I (0.000-0.034) ng/mL NT-Pro-B Natriuret Pep pg/mL Total Protein (6.3-8.2) g/dL Albumin (3.5-5.0) g/dL Coronavirus (PCR) Detected A (Not Detectd) Disposition <Sanjeev Kang - Last Filed: 11/01/20 13:18> <Iris Junior A - Last Filed: 11/04/20 00:35> Clinical Impression: Hyperkalemia, COVID-19, Hypertension, End stage renal disease on dialysis, Lilliana betes, Pulmonary edema Disposition: ADMITTED IP TO THIS HOSP Condition: Serious
--- NOTE | 2020-11-01 12:02 | XR ---
EXAMINATION TYPE: XR chest 2V DATE OF EXAM: 11/01/2020 COMPARISON: 07/14/2020 HISTORY: 64 year-old female shortness of breath, difficulty breathing TECHNIQUE: AP and lateral views FINDINGS: Heart mildly enlarged. Mild interstitial opacity and peribronchial cuffing. No maury consolidation or pleural effusion. IMPRESSION: Mild cardiomegaly and interstitial changes. Correlate to exclude mild pulmonary vascular congestion. If concern for early atypical pneumonia, follow-up can be performed.
[2020-11-01 12:19] LABS: Basophils # (A) 0.1 k/uL (0-0.2); Basophils % (A) 2 %; Eosinophils # (A) 0.1 k/uL (0-0.7); Eosinophils % (A) 1 %; HCT 35.4 % (34.0-46.0); HGB 11.7 gm/dL (11.4-16.0); Lymphocytes % (A) 18 %; MCH 31.1 pg (25.0-35.0); MCV 94.4 fL (80.0-100.0); Mean Platelet Volume 8.1; Monocytes # (A) 0.6 k/uL (0-1.0); Monocytes % (A) 11 %; Neutrophils # (A) 3.8 k/uL (1.3-7.7); Neutrophils % (A) 66 %; Platelet Count 232 k/uL (150-450); RBC 3.75 m/uL (3.80-5.40); RDW 14.7 % (11.5-15.5); WBC 5.8 k/uL (3.8-10.6)
[2020-11-01 12:27] LABS: INR 1.1 (<1.2); Partial Thromboplastin Time 23.2 sec (22.0-30.0); Prothrombin Time 11.5 sec (9.0-12.0)
[2020-11-01 12:29] LABS: Albumin 4.4 g/dL (3.5-5.0); Calcium 9.2 mg/dL (8.4-10.2); Magnesium 2.5 mg/dL (1.6-2.3); Phosphorus 5.2 mg/dL (2.5-4.5); Potassium 5.4 mmol/L (3.5-5.1); Total Protein 9.1 g/dL (6.3-8.2)
[2020-11-01 12:31] LABS: Glucose,Whole Blood 296 mg/dL (75-99)
[2020-11-01] MEDS ORDERED: ACETAMINOPHEN TAB 325 MG TAB PO PRN (13:20)
[2020-11-01] MEDS ORDERED: NALOXONE 0.4 MG/ML 1 ML VIAL IV PRN (13:20)
[2020-11-01] MEDS ORDERED: ONDANSETRON 4 MG/2 ML VIAL IVP PRN (13:57)
[2020-11-01] MEDS ORDERED: CALCIUM ACETATE 667 MG TAB PO PRN (14:38)
[2020-11-01] MEDS ORDERED: GABAPENTIN 300 MG CAP PO PRN (14:38)
[2020-11-01] MEDS ORDERED: LIDOCAINE-PRILOCAINE 2.5-2.5% CREAM 5 GM TUBE TOPICAL PRN (14:38)
--- NOTE | 2020-11-01 14:47 | P.HPIM ---
History of Present Illness Patient is a pleasant 62-year-old female came in with complaints of shortness of breath. Patient was having discharge breath for last couple days. Patient was having symptoms of covid in drink of generalized weakness since last Sunday and patient is tested positive today. Patient's the hematemesis was switched around because of her exposure to Covid. Patient is supposed to get hemodialysis today. Patient was comparing of her severe nausea vomiting and some diarrhea. Patient was also having fevers. Patient is afebrile since hospitalization. Patient's last hemodialysis was on Sunday. Patient is found to have significant infiltrate bilaterally with highly elevated BNP the infiltrate is consistent with CHF and can be secondary to Covid pneumonia. Review of Systems REVIEW OF SYSTEMS: CONSTITUTIONAL: Has mentioned in HPI HEENT: No recent visual problems or hearing problems. Denied any sore throat. CARDIOVASCULAR: No chest pain, orthopnea, PND, no palpitations, no syncope. PULMONARY: no hemoptysis. GASTROINTESTINAL: no abdominal pain. NEUROLOGICAL: No headaches, no weakness, no numbness. HEMATOLOGICAL: Denies any bleeding or petechiae. GENITOURINARY: Denies any burning micturition, frequency, or urgency. MUSCULOSKELETAL/RHEUMATOLOGICAL: Denies any joint pain, swelling, or any muscle pain. ENDOCRINE: Denies any polyuria or polydipsia. The rest of the 14-point review of systems is negative. Past Medical History Past Medical History: Diabetes Mellitus, Hypertension, Renal Disease Additional Past Medical History / Comment(s): ESRD with hemodialysis M/W/F, IDDM type II, past DKA, neuropathy bilateral feet/legs and alittle in hands, "fast heart rate"-had cardiac ablation, lymphedema bilateral lower legs/feet, gout R knee, mineral bone disease, IBS, R sided Mustafa's palsey. History of Any Multi-Drug Resistant Organisms: None Reported Past Surgical History: Appendectomy, Cardiac Ablation, Section, Cholecystectomy, Tubal Ligation Additional Past Surgical History / Comment(s): bilateral cataract removal with lens implants, C-sections, bilateral benign breast biopsies, AV graft left arm done 06-23-16 for dialysis, colonoscopy. Past Anesthesia/Blood Transfusion Reactions: Motion Sickness, Postoperative Nausea & Vomiting (PONV) Past Psychological History: No Psychological Hx Reported Smoking Status: Never smoker Past Alcohol Use History: None Reported Past Drug Use History: None Reported - Past Family History Father Family Medical History: Cancer, Diabetes Mellitus Additional Family Medical History / Comment(s): Father had prostate cancer. Mother Family Medical History: Cancer Additional Family Medical History / Comment(s): Mother had breast cancer. Medications and Allergies Home Medications Medication Instructions Recorded Confirmed Type Gabapentin [Neurontin] 300 mg PO DAILY PRN 06/27/16 11/01/20 History Aspirin [Adult Low Dose Aspirin EC] 81 mg PO DAILY 09/16/16 11/01/20 History amLODIPine [Norvasc] 10 mg PO HS 11/29/16 11/01/20 History Insulin Glargine,Hum.rec.anlog 21 unit SQ HS 07/08/18 11/01/20 History [Basaglar Kwikpen U-100] Lidocaine-Prilocaine Cream [Emla 1 applic TOPICAL TUTHSA PRN 05/19/20 11/01/20 History Cream 2.5%/2.5%] Ondansetron HCl [Zofran] 4 mg PO Q8H PRN 05/19/20 11/01/20 History Calcium Acetate [PhosLo] 1,334 mg PO AC-BID 07/12/20 11/01/20 History Calcium Acetate [PhosLo] 667 mg PO DAILY PRN 07/12/20 11/01/20 History INSULIN ASPART (NovoLOG) [NovoLOG 10 unit SQ AC-TID 07/12/20 11/01/20 History (formulary)] INSULIN ASPART (NovoLOG) [NovoLOG See Protocol SQ AC-TID 07/12/20 11/01/20 History (formulary)] HYDROcodone/APAP 7.5-325MG [[place] 1 tablet PO BID PRN 07/13/20 11/01/20 History 7.5-325] carvediloL [Coreg] 3.125 mg PO BID-W/MEALS #30 tab 07/16/20 11/01/20 Rx hydrALAZINE HCL [Apresoline] 50 mg PO TID #90 tab 07/16/20 11/01/20 Rx Furosemide [Lasix] 80 mg PO BID 11/01/20 11/01/20 History Allergies Allergy/AdvReac Type Severity Reaction Status Date / Time sulfamethoxazole AdvReac Nausea & Verified 11/01/20 13:03 [From Bactrim] Vomiting,dyspnea trimethoprim [From Bactrim] AdvReac Nausea & Verified 11/01/20 13:03 Vomiting,dyspnea Physical Exam Vitals: Vital Signs Temp Pulse Resp BP Pulse Ox 11/01/20 14:12 98.8 F 79 22 194/91 97 11/01/20 14:00 80 18 97 11/01/20 12:30 176/81 11/01/20 12:17 23 11/01/20 11:06 98.9 F 73 24 237/186 99 Intake and Output 10/31/20 11/01/20 11/01/20 22:59 06:59 14:59 Other: Weight 104.326 kg PHYSICAL EXAMINATION: GENERAL: The patient is alert and oriented x3, patient is in distress because of her severe nausea. Well developed, well nourished. HEENT: Pupils are round and equally reacting to light. EOMI. No scleral icterus. No conjunctival pallor. Normocephalic, atraumatic. No pharyngeal erythema. No thyromegaly. CARDIOVASCULAR: S1 and S2 present. No murmurs, rubs, or gallops. PULMONARY: Right basilar crackles ABDOMEN: Soft, nontender, nondistended, normoactive bowel sounds. No palpable organomegaly. MUSCULOSKELETAL: No joint swelling or deformity. EXTREMITIES: No cyanosis, clubbing, or pedal edema. NEUROLOGICAL: Gross neurological examination did not reveal any focal deficits. SKIN: No rashes. Note: Because of COVID 19 isolation, some of the history and physical exam findings are indirect and obtained from nursing staff, and other physician examinations to avoid unnecessary contact with the patient. Results CBC & Chem 7: 11/01/20 11:49 11/01/20 11:49 Labs: Abnormal Lab Results - Last 24 Hours (Table) 11/01/20 11/01/20 11/01/20 Range/Units 11:49 11:49 11:49 RBC 3.75 L (3.80-5.40) m/uL Sodium 133 L (137-145) mmol/L Potassium 5.4 H (3.5-5.1) mmol/L Chloride 93 L (98-107) mmol/L BUN 32 H (7-17) mg/dL Creatinine 7.29 H* (0.52-1.04) mg/dL Glucose 312 H (74-99) mg/dL POC Glucose (mg/dL) (75-99) mg/dL Plasma Lactic Acid [place] 3.2 H* (0.7-2.0) mmol/L Phosphorus 5.2 H (2.5-4.5) mg/dL Magnesium 2.5 H (1.6-2.3) mg/dL Alkaline Phosphatase 157 H (38-126) U/L Troponin I (0.000-0.034) ng/mL Total Protein 9.1 H (6.3-8.2) g/dL Coronavirus (PCR) (Not Detectd) 11/01/20 11/01/20 11/01/20 Range/Units 11:49 11:49 12:29 RBC (3.80-5.40) m/uL Sodium (137-145) mmol/L Potassium (3.5-5.1) mmol/L Chloride (98-107) mmol/L BUN (7-17) mg/dL Creatinine (0.52-1.04) mg/dL Glucose (74-99) mg/dL POC Glucose (mg/dL) 296 H (75-99) mg/dL Plasma Lactic Acid [place] (0.7-2.0) mmol/L Phosphorus (2.5-4.5) mg/dL Magnesium (1.6-2.3) mg/dL Alkaline Phosphatase (38-126) U/L Troponin I 0.145 H* (0.000-0.034) ng/mL Total Protein (6.3-8.2) g/dL Coronavirus (PCR) Detected A (Not Detectd) Assessment and Plan Plan: -Short of breath: Secondary to covid 19 pneumonia and pulmonary edema. -Covid 19 pneumonia: Patient was started on Decadron because of significant infiltrates on the chest x-ray, pulmonary was consulted. -Nausea vomiting diarrhea: Secondary to assessment #2 -Pulmonary edema secondary to end-stage renal disease patient will undergo emergent hemodialysis today. -Mild elevation of troponin secondary to chronic kidney disease will repeat 2 more sets of troponins -Type 2 diabetes mellitus -Hypertension -End-stage renal disease secondary to diabetic nephropathy -Type 2 diabetes mellitus: Patient will be started on sliding scale insulin as patient is having nausea vomiting will hold off on long-acting insulin as well as female insulin. -Due to prophylaxis with subcutaneous heparin GI prophylaxis with IV Pepcid
[2020-11-01] MEDS: hydrALAZINE HCL 50 MG TAB PO SCH ×2 (14:53→21:16)
--- NOTE | 2020-11-01 14:57 | P.NPCON ---
History of Present Illness - Reason for Consult end stage renal disease - History of Present Illness Reason for consultation: End-stage renal disease History of present illness: Patient is a 64-year-old female seen in renal consultation for end-stage renal disease. Patient was seen in the emergency room. She is maintained on hemodialysis on Sunday schedule. Patient states she had hem odialysis on Sunday due to the holiday week and shortly afterwards developed vomiting as well as loose bowel movements. She also became more short of breath. Patient states 2 of her grandchildren tested positive for Covid 19. Patient also tested positive for Covid 19. She denies fever or chills. She has been started on IV steroids. Currently on 2 L nasal cannula. Blood pressure high. All medications have been resumed. No abdominal pain. Vital signs are stable. General: The patient appeared well nourished and normally developed. HEENT: Head exam is unremarkable. Neck is without jugular venous distension. LUNGS: Breath sounds decreased. HEART: Rate and Rhythm are regular. ABDOMEN: Soft, nontender. Obese. EXTREMITITES: 1+ edema. Chronic skin changes noted. Past Medical History Past Medical History: Diabetes Mellitus, Hypertension, Renal Disease Additional Past Medical History / Comment(s): ESRD with hemodialysis M/W/F, IDDM type II, past DKA, neuropathy bilateral feet/legs and alittle in hands, "fast heart rate"-had cardiac ablation, lymphedema bilateral lower legs/feet, gout R knee, mineral bone disease, IBS, R sided Mustafa's palsey. History of Any Multi-Drug Resistant Organisms: None Reported Past Surgical History: Appendectomy, Cardiac Ablation, Section, Cholecystectomy, Tubal Ligation Additional Past Surgical History / Comment(s): bilateral cataract removal with lens implants, C-sections, bilateral benign breast biopsies, AV graft left arm done 06-23-16 for dialysis, colonoscopy. Past Anesthesia/Blood Transfusion Reactions: Motion Sickness, Postoperative Nausea & Vomiting (PONV) Past Psychological History: No Psychological Hx Reported Smoking Status: Never smoker Past Alcohol Use History: None Reported Past Drug Use History: None Reported - Past Family History Father Family Medical History: Cancer, Diabetes Mellitus Additional Family Medical History / Comment(s): Father had prostate cancer. Mother Family Medical History: Cancer Additional Family Medical History / Comment(s): Mother had breast cancer. Medications and Allergies Home Medications Medication Instructions Recorded Confirmed Type Gabapentin [Neurontin] 300 mg PO DAILY PRN 06/27/16 11/01/20 History Aspirin [Adult Low Dose Aspirin EC] 81 mg PO DAILY 09/16/16 11/01/20 History amLODIPine [Norvasc] 10 mg PO HS 11/29/16 11/01/20 History Insulin Glargine,Hum.rec.anlog 21 unit SQ HS 07/08/18 11/01/20 History [Vin Rollins U-100] Lidocaine-Prilocaine Cream [Emla 1 applic TOPICAL TUTHSA PRN 05/19/20 11/01/20 History Cream 2.5%/2.5%] Ondansetron HCl [Zofran] 4 mg PO Q8H PRN 05/19/20 11/01/20 History Calcium Acetate [PhosLo] 1,334 mg PO AC-BID 07/12/20 11/01/20 History Calcium Acetate [PhosLo] 667 mg PO DAILY PRN 07/12/20 11/01/20 History INSULIN ASPART (NovoLOG) [NovoLOG 10 unit SQ AC-TID 07/12/20 11/01/20 History (formulary)] INSULIN ASPART (NovoLOG) [NovoLOG See Protocol SQ AC-TID 07/12/20 11/01/20 History (formulary)] HYDROcodone/APAP 7.5-325MG [[place] 1 tablet PO BID PRN 07/13/20 11/01/20 History 7.5-325] carvediloL [Coreg] 3.125 mg PO BID-W/MEALS #30 tab 07/16/20 11/01/20 Rx hydrALAZINE HCL [Apresoline] 50 mg PO TID #90 tab 07/16/20 11/01/20 Rx Furosemide [Lasix] 80 mg PO BID 11/01/20 11/01/20 History Allergies Allergy/AdvReac Type Severity Reaction Status Date / Time sulfamethoxazole AdvReac Nausea & Verified 11/01/20 13:03 [From Bactrim] Vomiting,dyspnea trimethoprim [From Bactrim] AdvReac Nausea & Verified 11/01/20 13:03 Vomiting,dyspnea Physical Exam Vitals: Vital Signs Temp Pulse Resp BP Pulse Ox 11/01/20 14:12 98.8 F 79 22 194/91 97 11/01/20 14:00 80 18 97 11/01/20 12:30 176/81 11/01/20 12:17 23 11/01/20 11:06 98.9 F 73 24 237/186 99 Intake and Output 10/31/20 11/01/20 11/01/20 22:59 06:59 14:59 Other: Weight 104.326 kg Results - Lab Results Most recent lab results Calcium 9.2 mg/dL (8.4-10.2) 11/01/20 11:49 Phosphorus 5.2 mg/dL (2.5-4.5) H 11/01/20 11:49 Magnesium 2.5 mg/dL (1.6-2.3) H 11/01/20 11:49 11/01/20 11:49 11/01/20 11:49 Assessment and Plan Plan: Assessment: 1. End-stage renal disease maintained on hemodialysis on Sunday schedule. 2. Coated 19 pneumonia. Maintained on steroids. 3. Chronic kidney disease mineral bone disease maintained on PhosLo. 4. Hypertension with chronic kidney disease. Exacerbated by steroids. 5. Diabetes mellitus. Plan: Hemodialysis today. Home antihypertensives and phosphate binder resumed. Add hydralazine 10 mg every 4 hours as needed for systolic blood pressure greater than 160. Thank you for the consultation. I will continue to follow the patient with you during her hospital stay.
[2020-11-01] MEDS: DEXAMETHASONE SOD PHOSPHATE 10 MG/ML 1 ML VIAL IV SCH (15:56)
[2020-11-01] MEDS: hydrALAZINE HCL 20 MG/ML 1 ML VIAL IVP PRN ×2 (15:57→23:55)
[2020-11-01] MEDS: FAMOTIDINE 20 MG/2 ML VIAL IV SCH ×2 (15:58→23:44)
[2020-11-01] MEDS: carvediloL 3.125 MG TAB PO SCH (15:58)
[2020-11-01] MEDS: CALCIUM ACETATE 667 MG TAB PO SCH (15:58)
[2020-11-01] MEDS: HEPARIN SODIUM,PORCINE 5,000 UNIT/ML 1 ML VIAL SQ SCH ×2 (15:58→23:47)
[2020-11-01 16:46] LABS: Glucose,Whole Blood 300 mg/dL (75-99)
[2020-11-01] MEDS: INSULIN ASPART (NovoLOG) 100 UNIT/ML VIAL SQ SCH ×2 (17:08→21:15)
[2020-11-01 20:49] LABS: Glucose,Whole Blood 127 mg/dL (75-99)
[2020-11-01] MEDS ORDERED: amLODIPine 10 MG TAB PO SCH (21:00)
[2020-11-01] MEDS: HYDROcodone/APAP 7.5-325MG 1 EACH TAB PO PRN (21:16)
[2020-11-01] MEDS: FUROSEMIDE 80 MG TAB PO SCH (21:16)
[2020-11-02] MEDS ORDERED: hydrALAZINE HCL 50 MG TAB PO STA (03:51)
[2020-11-02 05:29] LABS: Glucose,Whole Blood 176 mg/dL (75-99)
[2020-11-02] MEDS: CALCIUM ACETATE 667 MG TAB PO SCH ×2 (07:15→17:05)
[2020-11-02] MEDS: carvediloL 3.125 MG TAB PO SCH ×2 (07:15→17:06)
[2020-11-02] MEDS: INSULIN ASPART (NovoLOG) 100 UNIT/ML VIAL SQ SCH ×3 (07:28→17:06)
[2020-11-02] MEDS ORDERED: FUROSEMIDE 40 MG TAB PO SCH (09:00)
[2020-11-02] MEDS ORDERED: ASPIRIN 81 MG PO SCH (09:00)
[2020-11-02] MEDS: HEPARIN SODIUM,PORCINE 5,000 UNIT/ML 1 ML VIAL SQ SCH ×3 (09:27→17:12)
[2020-11-02] MEDS: FUROSEMIDE 80 MG TAB PO SCH (09:28)
[2020-11-02] MEDS: hydrALAZINE HCL 50 MG TAB PO SCH ×2 (09:28→17:06)
[2020-11-02 12:05] LABS: Glucose,Whole Blood 217 mg/dL (75-99)
[2020-11-02] MEDS: DEXAMETHASONE SOD PHOSPHATE 10 MG/ML 1 ML VIAL IV SCH (12:16)
[2020-11-02] MEDS: FAMOTIDINE 20 MG/2 ML VIAL IV SCH (12:22)
--- NOTE | 2020-11-02 12:31 | P.PN ---
Subjective Patient is seen in follow-up for end-stage renal disease. She is maintained on hemodialysis on Sunday schedule. Feels better today. No chest pain or shortness of breath. Vital signs are stable. General: The patient appeared well nourished and normally developed. HEENT: Head exam is unremarkable. Neck is without jugular venous distension. LUNGS: Breath sounds decreased. HEART: Rate and Rhythm are regular. ABDOMEN: Soft, nontender. EXTREMITITES: 1+ edema. Chronic changes noted. Objective - Vital Signs Vital signs: Vital Signs Temp 96.3 F L 11/02/20 08:00 Pulse 68 11/02/20 04:00 Resp 18 11/02/20 08:00 BP 147/68 11/02/20 08:00 Pulse Ox 93 L 11/02/20 08:00 Intake & Output 11/01/20 11/02/20 11/02/20 18:59 06:59 18:59 Intake Total 240 Output Total 1999 Balance -1999 240 Weight 104.326 kg 97 kg Intake: Oral 240 Output: Hemodialysis 1999 Other: Voiding Method Bedside Commode Bedside Commode Bedside Commode # Voids 0 - Labs CBC & Chem 7: 11/01/20 11:49 11/01/20 11:49 Labs: Abnormal Lab Results - Last 24 Hours (Table) 11/01/20 11/01/20 11/01/20 Range/Units 11:49 11:49 11:49 Sodium 133 L (137-145) mmol/L Potassium 5.4 H (3.5-5.1) mmol/L Chloride 93 L (98-107) mmol/L BUN 32 H (7-17) mg/dL Creatinine 7.29 H* (0.52-1.04) mg/dL Glucose 312 H (74-99) mg/dL POC Glucose (mg/dL) (75-99) mg/dL Plasma Lactic Acid [place] 3.2 H* (0.7-2.0) mmol/L Phosphorus 5.2 H (2.5-4.5) mg/dL Magnesium 2.5 H (1.6-2.3) mg/dL Alkaline Phosphatase 157 H (38-126) U/L Troponin I 0.145 H* (0.000-0.034) ng/mL Total Protein 9.1 H (6.3-8.2) g/dL Coronavirus (PCR) (Not Detectd) 11/01/20 11/01/20 11/01/20 Range/Units 11:49 12:29 15:20 Sodium (137-145) mmol/L Potassium (3.5-5.1) mmol/L Chloride (98-107) mmol/L BUN (7-17) mg/dL Creatinine (0.52-1.04) mg/dL Glucose (74-99) mg/dL POC Glucose (mg/dL) 296 H (75-99) mg/dL Plasma Lactic Acid [place] 2.2 H* (0.7-2.0) mmol/L Phosphorus (2.5-4.5) mg/dL Magnesium (1.6-2.3) mg/dL Alkaline Phosphatase (38-126) U/L Troponin I (0.000-0.034) ng/mL Total Protein (6.3-8.2) g/dL Coronavirus (PCR) Detected A (Not Detectd) 11/01/20 11/01/20 11/02/20 Range/Units 16:44 20:46 05:25 Sodium (137-145) mmol/L Potassium (3.5-5.1) mmol/L Chloride (98-107) mmol/L BUN (7-17) mg/dL Creatinine (0.52-1.04) mg/dL Glucose (74-99) mg/dL POC Glucose (mg/dL) 300 H 127 H 176 H (75-99) mg/dL Plasma Lactic Acid [place] (0.7-2.0) mmol/L Phosphorus (2.5-4.5) mg/dL Magnesium (1.6-2.3) mg/dL Alkaline Phosphatase (38-126) U/L Troponin I (0.000-0.034) ng/mL Total Protein (6.3-8.2) g/dL Coronavirus (PCR) (Not Detectd) 11/02/20 Range/Units 11:45 Sodium (137-145) mmol/L Potassium (3.5-5.1) mmol/L Chloride (98-107) mmol/L BUN (7-17) mg/dL Creatinine (0.52-1.04) mg/dL Glucose (74-99) mg/dL POC Glucose (mg/dL) 217 H (75-99) mg/dL Plasma Lactic Acid [place] (0.7-2.0) mmol/L Phosphorus (2.5-4.5) mg/dL Magnesium (1.6-2.3) mg/dL Alkaline Phosphatase (38-126) U/L Troponin I (0.000-0.034) ng/mL Total Protein (6.3-8.2) g/dL Coronavirus (PCR) (Not Detectd) Assessment and Plan Plan: Assessment: 1. End-stage renal disease maintained on hemodialysis on Sunday schedule. 2. Coated 19 pneumonia. Maintained on steroids. 3. Chronic kidney disease mineral bone disease maintained on PhosLo. 4. Hypertension with chronic kidney disease. Exacerbated by steroids. Stable. 5. Diabetes mellitus. Plan: Due to COVID-19 infection, she will now be maintained on a Sunday schedule at a dialysis unit in [place] campus. I will do a short hemodialysis treatment today and then she will go to the [place] [facility] unit starting .
--- NOTE | 2020-11-02 13:04 | P.DS ---
Providers Date of admission: 11/01/20 14:34 Attending physician: Mack Martinez Consults: 11/01/20 13:20 Consult Physician Urgent Consulting Provider: Ld Downey Consult Reason/Comments: Dialysis Do you want consulting provider notified?: Yes 11/01/20 13:21 Consult Physician Urgent Consulting Provider: Eduar Oliver Consult Reason/Comments: COVID Do you want consulting provider notified?: Yes Primary care physician: Piedad Simpson [facility] Course: Patient is a pleasant 62-year-old female came in with complaints of shortness of breath. Patient was having discharge breath for last couple days. Patient was having symptoms of covid in drink of generalized weakness since last Sunday and patient is tested positive today. Patient's the hematemesis was switched around because of her exposure to Covid. Patient is supposed to get hemodialysis today. Patient was comparing of her severe nausea vomiting and some diarrhea. Patient was also having fevers. Patient is afebrile since hos pitalization. Patient's last hemodialysis was on Sunday. Patient is found to have significant infiltrate bilaterally with highly elevated BNP the infiltrate is consistent with CHF and can be secondary to Covid pneumonia. 11/02/2020 Patient has significant improvement in her respiratory status and her overall symptoms of nausea vomiting and patient is doing much better today the symptoms improved after hemodialysis. Patient will undergo hemanalysis again today after that patient will be discharged patient is not requiring any oxygen. Patient's hemodialysis will be next which will be set up by case management here PHYSICAL EXAMINATION: GENERAL: The patient is alert and oriented x3, patient is in distress because of her severe nausea. Well developed, well nourished. HEENT: Pupils are round and equally reacting to light. EOMI. No scleral icterus. No conjunctival pallor. Normocephalic, atraumatic. No pharyngeal erythema. No thyromegaly. CARDIOVASCULAR: S1 and S2 present. No murmurs, rubs, or gallops. PULMONARY: Right basilar crackles ABDOMEN: Soft, nontender, nondistended, normoactive bowel sounds. No palpable organomegaly. MUSCULOSKELETAL: No joint swelling or deformity. EXTREMITIES: No cyanosis, clubbing, or pedal edema. NEUROLOGICAL: Gross neurological examination did not reveal any focal deficits. SKIN: No rashes. Note: Because of COVID 19 isolation, some of the history and physical exam findings are indirect and obtained from nursing staff, and other physician examinations to avoid unnecessary contact with the patient. Assessment and Plan Plan: -Shortness of breath: Secondary to covid 19 pneumonia and pulmonary edema. -Covid 19 pneumonia: Patient will be discharged on Medrol Dosepak, zinc -Nausea vomiting diarrhea: Secondary to assessment #2 -Pulmonary edema secondary to end-stage renal disease patient will undergo emergent hemodialysis today. -Mild elevation of troponin secondary to chronic kidney disease . -Type 2 diabetes mellitus: Patient blood sugars were low yesterday before us systemic steroids as patient is being discharged on steroids him unsure how the blood sugars will behavior as because of which asked her to closely monitor the blood sugars at home and if they're elevated call PCP for titration of insulin -Hypertension -End-stage renal disease secondary to diabetic nephropathy Patient Condition at Discharge: Serious Plan - Discharge Summary New Discharge Prescriptions: New methylPREDNISolone Dose Pack [Medrol Dose Pack] 4 mg PO DIRECTED #21 package Zinc Sulfate 220 mg PO BID #20 capsule Famotidine [Pepcid] 20 mg PO BID #30 tablet No Action Gabapentin [Neurontin] 300 mg PO DAILY PRN PRN Reason: NERVE PAIN Aspirin [Adult Low Dose Aspirin EC] 81 mg PO DAILY amLODIPine [Norvasc] 10 mg PO HS Insulin Glargine,Hum.rec.anlog [Basaglar Kwikpen U-100] 21 unit SQ HS Ondansetron HCl [Zofran] 4 mg PO Q8H PRN PRN Reason: Nausea And Vomiting Lidocaine-Prilocaine Cream [Emla Cream 2.5%/2.5%] 1 applic TOPICAL TUTHSA PRN PRN Reason: DIALYIS DAYS INSULIN ASPART (NovoLOG) [NovoLOG (formulary)] See Protocol SQ AC-TID Calcium Acetate [PhosLo] 667 mg PO DAILY PRN PRN Reason: with a snack Calcium Acetate [PhosLo] 1,334 mg PO AC-BID INSULIN ASPART (NovoLOG) [NovoLOG (formulary)] 10 unit SQ AC-TID HYDROcodone/APAP 7.5-325MG [[place] 7.5-325] 1 tablet PO BID PRN PRN Reason: Pain carvediloL [Coreg] 3.125 mg PO BID-W/MEALS #30 tab hydrALAZINE HCL [Apresoline] 50 mg PO TID #90 tab Furosemide [Lasix] 80 mg PO BID Discharge Medication List Gabapentin [Neurontin] 300 mg PO DAILY PRN 06/27/16 [History] Aspirin [Adult Low Dose Aspirin EC] 81 mg PO DAILY 09/16/16 [History] amLODIPine [Norvasc] 10 mg PO HS 11/29/16 [History] Insulin Glargine,Hum.rec.anlog [Basaglar Kwikpen U-100] 21 unit SQ HS 07/08/18 [History] Lidocaine-Prilocaine Cream [Emla Cream 2.5%/2.5%] 1 applic TOPICAL TUTHSA PRN 05/19/20 [History] Ondansetron HCl [Zofran] 4 mg PO Q8H PRN 05/19/20 [History] Calcium Acetate [PhosLo] 1,334 mg PO AC-BID 07/12/20 [History] Calcium Acetate [PhosLo] 667 mg PO DAILY PRN 07/12/20 [History] INSULIN ASPART (NovoLOG) [NovoLOG (formulary)] 10 unit SQ AC-TID 07/12/20 [History] INSULIN ASPART (NovoLOG) [NovoLOG (formulary)] See Protocol SQ AC-TID 07/12/20 [History] HYDROcodone/APAP 7.5-325MG [[place] 7.5-325] 1 tablet PO BID PRN 07/13/20 [History] carvediloL [Coreg] 3.125 mg PO BID-W/MEALS #30 tab 07/16/20 [Rx] hydrALAZINE HCL [Apresoline] 50 mg PO TID #90 tab 07/16/20 [Rx] Furosemide [Lasix] 80 mg PO BID 11/01/20 [History] Famotidine [Pepcid] 20 mg PO BID #30 tablet 11/02/20 [Rx] Zinc Sulfate 220 mg PO BID #20 capsule 11/02/20 [Rx] methylPREDNISolone Dose Pack [Medrol Dose Pack] 4 mg PO DIRECTED #21 package 11/02/20 [Rx] Follow up Appointment(s)/Referral(s): Eduar Oliver MD [STAFF PHYSICIAN] - 3 Weeks Piedad Ingram III, MD [Primary Care Provider] - 3 Days Discharge Disposition: HOME SELF-CARE
[2020-11-02] MEDS ORDERED: ONDANSETRON ODT 4 MG TAB PO PRN (13:28)
[2020-11-02 13:30] VITALS: TEMP 98
[2020-11-02] MEDS ORDERED: FAMOTIDINE 20 MG TAB PO SCH (13:30)
--- NOTE | 2020-11-02 15:11 | P.CNPUL ---
History of Present Illness Consult date: 11/02/20 Reason for consult: dyspnea Chief complaint: Shortness of breath History of present illness: This is a 64-year-old female with history of multiple medical problems including end-stage renal disease, on hemodialysis, type 2 diabetes, diabetic neuropathy, chronic lymphedema, irritable bowel syndrome, patient presented to the ER yesterday with 2 days history of increased shortness of breath. Patient had no fever, no chills, no hemoptysis, no chest pain. No nausea no vomiting no abdominal pain no diarrhea, no loss of sensation of taste or smell. Patient was noted to have evidence of interstitial edema, and underwent dialysis. Her last dialysis was on Sunday. Shortly after the patient underwent hemodialysis, her shortness of breath has completely resolved. Considering the patient had those pulmonary symptoms and considering that she was recently exposed to a family member who had covid 19 infection, patient was tested for Covid, and the tests came back positive. Hence the patient was admitted, placed on the Covid 19 cocktail, she has no active pulmonary symptoms at present, and this consult was initiated. However shortly after I evaluated the patient, her admitting physician is planning to discharge the patient home today. Her labs showed relatively normal CBC. Abnormal renal profile with a BUN of 32 creatinine of 7.29. BNP level was over 44,000. Review of Systems CONSTITUTIONAL: Negative HEENT: No recent visual problems or hearing problems. Denied any sore throat. CARDIOVASCULAR: As noted in HPI. PULMONARY: As noted in HPI. GASTROINTESTINAL: no abdominal pain. NEUROLOGICAL: No headaches, no weakness, no numbness. HEMATOLOGICAL: Denies any bleeding or petechiae. GENITOURINARY: Denies any burning micturition, frequency, or urgency. MUSCULOSKELETAL/RHEUMATOLOGICAL: Denies any joint pain, swelling, or any muscle pain. ENDOCRINE: Denies any polyuria or polydipsia. Past Medical History Past Medical History: Diabetes Mellitus, Hypertension, Renal Disease Additional Past Medical History / Comment(s): ESRD with hemodialysis M/W/F, IDDM type II, past DKA, neuropathy bilateral feet/legs and alittle in hands, "fast heart rate"-had cardiac ablation, lymphedema bilateral lower legs/feet, gout R knee, mineral bone disease, IBS, R sided Mustafa's palsey.skin CA on back removed. History of Any Multi-Drug Resistant Organisms: None Reported Past Surgical History: Appendectomy, Cardiac Ablation, Section, Cholecystectomy, Tubal Ligation Additional Past Surgical History / Comment(s): bilateral cataract removal with lens implants, C-sections, bilateral benign breast biopsies, AV graft left arm done 06-23-16 for dialysis, colonoscopy. Past Anesthesia/Blood Transfusion Reactions: Motion Sickness, Postoperative Nausea & Vomiting (PONV) Past Psychological History: No Psychological Hx Reported Additional Psychological History / Comment(s): Pt resides with her spouse. She is independent. She uses a walker. She drives. . Smoking Status: Never smoker Past Alcohol Use History: None Reported Past Drug Use History: None Reported - Past Family History Father Family Medical History: Cancer, Diabetes Mellitus Additional Family Medical History / Comment(s): Father had prostate cancer. Mother Family Medical History: Cancer Additional Family Medical History / Comment(s): Mother had breast cancer. Medications and Allergies Home Medications Medication Instructions Recorded Confirmed Type Gabapentin [Neurontin] 300 mg PO DAILY PRN 06/27/16 11/01/20 History Aspirin [Adult Low Dose Aspirin EC] 81 mg PO DAILY 09/16/16 11/01/20 History amLODIPine [Norvasc] 10 mg PO HS 11/29/16 11/01/20 History Insulin Glargine,Hum.rec.anlog 21 unit SQ HS 07/08/18 11/01/20 History [Vin Rollins U-100] Lidocaine-Prilocaine Cream [Emla 1 applic TOPICAL TUTHSA PRN 05/19/20 11/01/20 History Cream 2.5%/2.5%] Ondansetron HCl [Zofran] 4 mg PO Q8H PRN 05/19/20 11/01/20 History Calcium Acetate [PhosLo] 1,334 mg PO AC-BID 07/12/20 11/01/20 History Calcium Acetate [PhosLo] 667 mg PO DAILY PRN 07/12/20 11/01/20 History INSULIN ASPART (NovoLOG) [NovoLOG 10 unit SQ AC-TID 07/12/20 11/01/20 History (formulary)] INSULIN ASPART (NovoLOG) [NovoLOG See Protocol SQ AC-TID 07/12/20 11/01/20 History (formulary)] HYDROcodone/APAP 7.5-325MG [[place] 1 tablet PO BID PRN 07/13/20 11/01/20 History 7.5-325] carvediloL [Coreg] 3.125 mg PO BID-W/MEALS #30 tab 07/16/20 11/01/20 Rx hydrALAZINE HCL [Apresoline] 50 mg PO TID #90 tab 07/16/20 11/01/20 Rx Furosemide [Lasix] 80 mg PO BID 11/01/20 11/01/20 History Famotidine [Pepcid] 20 mg PO BID #30 tablet 11/02/20 Rx Ondansetron Odt [Zofran Odt] 4 mg PO Q8HR PRN #30 tab 11/02/20 Rx Zinc Sulfate 220 mg PO BID #20 capsule 11/02/20 Rx methylPREDNISolone Dose Pack 4 mg PO DIRECTED #21 package 11/02/20 Rx [Medrol Dose Pack] Allergies Allergy/AdvReac Type Severity Reaction Status Date / Time sulfamethoxazole AdvReac Nausea & Verified 11/01/20 13:03 [From Bactrim] Vomiting,dyspnea trimethoprim [From Bactrim] AdvReac Nausea & Verified 11/01/20 13:03 Vomiting,dyspnea Physical Exam Vitals: Vital Signs Temp Pulse Resp BP Pulse Ox 11/02/20 12:00 98 F 62 16 166/70 93 L 11/02/20 08:00 96.3 F L 18 147/68 93 L 11/02/20 04:00 68 18 176/79 92 L 11/02/20 01:31 61 18 11/02/20 00:00 61 18 186/81 97 11/01/20 20:02 98.1 F 76 16 159/89 11/01/20 20:00 76 18 11/01/20 17:00 76 20 167/85 11/01/20 16:00 98.1 F 78 10 L 223/95 98 Intake and Output 11/02/20 11/02/20 11/02/20 06:59 14:59 22:59 Intake Total 240 Balance 240 Intake: Oral 240 Other: Voiding Method Bedside Commode Bedside Commode Weight 97 kg Physical Exam: Revealed a 64-year-old female, on room air, pleasant, in no distress. Head: Atraumatic, normocephalic. HEENT:[Neck is supple.] [No neck masses.] [No thyromegaly.] [No JVD.] Chest: [Symmetrical chest expansion, final crackles at the bases. Cardiac Exam: [Normal S1 and S2, no S3 gallop, no murmur.] Abdomen: [Soft, nontender, no megaly, no rebound, no guarding, normal bowel sounds.] Extremities: [No clubbing, trace of bipedal edema. edema, no cyanosis.] Neurological Exam: [No focal neurologic deficit.] Alert oriented 3. Psychiatric: Normal mood, affect and normal mental status examination. Skin: No rashes. Results - Laboratory Findings CBC and BMP: 11/01/20 11:49 11/01/20 11:49 PT/INR, D-dimer PT 11.5 sec (9.0-12.0) 11/01/20 11:49 INR 1.1 (<1.2) 11/01/20 11:49 Abnormal lab findings: Abnormal Labs 11/01/20 11/01/20 11/01/20 11:49 11:49 11:49 RBC 3.75 L Sodium 133 L Potassium 5.4 H Chloride 93 L BUN 32 H Creatinine 7.29 H* Glucose 312 H POC Glucose (mg/dL) Plasma Lactic Acid [place] 3.2 H* Phosphorus 5.2 H Magnesium 2.5 H Alkaline Phosphatase 157 H Troponin I Total Protein 9.1 H Coronavirus (PCR) 11/01/20 11/01/20 11/01/20 11:49 11:49 12:29 RBC Sodium Potassium Chloride BUN Creatinine Glucose POC Glucose (mg/dL) 296 H Plasma Lactic Acid [place] Phosphorus Magnesium Alkaline Phosphatase Troponin I 0.145 H* Total Protein Coronavirus (PCR) Detected A 11/01/20 11/01/20 11/01/20 15:20 16:44 20:46 RBC Sodium Potassium Chloride BUN Creatinine Glucose POC Glucose (mg/dL) 300 H 127 H Plasma Lactic Acid [place] 2.2 H* Phosphorus Magnesium Alkaline Phosphatase Troponin I Total Protein Coronavirus (PCR) 11/02/20 11/02/20 05:25 11:45 RBC Sodium Potassium Chloride BUN Creatinine Glucose POC Glucose (mg/dL) 176 H 217 H Plasma Lactic Acid [place] Phosphorus Magnesium Alkaline Phosphatase Troponin I Total Protein Coronavirus (PCR) - Diagnostic Findings Chest x-ray: image reviewed (Chest x-ray showed cardiomegaly and mild interstitial changes bilaterally consistent with mild pulmonary vascular congestion. Or atypical pneumonia.) Assessment and Plan Assessment: Impression: Shortness of breath secondary to fluid overload secondary to end-stage renal disease, improved with dialysis. Possible underlying Covid19 pneumonitis. However considering the patient's dramatic improvement in her pulmonary status post hemodialysis speaks in favor of fluid overload rather than Covid 19 pneumonitis. Acute Covid 19 infection Type 2 diabetes with diabetic neuropathy. Benign essential hypertension. End-stage renal disease secondary to diabetic nephropathy, on hemodialysis Mondays 1 days and Fridays. Recommendation: Consider lacing the patient on the Covid 19 cocktail. Agree with discharge planning however the patient was made aware to come back to the hospital if her condition gets any worse. Patient is to follow-up with her primary care physician otherwise. Time with Patient: Greater than 30
[2020-11-02] MEDS: HYDROcodone/APAP 7.5-325MG 1 EACH TAB PO PRN (16:55)
[2020-11-02 17:07] LABS: Glucose,Whole Blood 152 mg/dL (75-99)
[2020-11-02 17:23] VITALS: BP 178/72; PULSE 66; RESP 18
== END 2020-11-02 19:14 | disposition home or self-care (01) | DRG 177 ==
LOC: EC 10:52 → 3SCARD 14:34
PROVIDERS: ADMIT Internal Medicine; ATTEND Internal Medicine
PROC: 5A1D70Z Performance of Urinary Filtration, Intermittent, Less than 6 Hours Per Day (ICD-10-PCS; principal; 2020-11-01)
DX: U07.1 COVID-19 (principal); N18.6 End stage renal disease; J12.82 Pneumonia due to coronavirus disease 2019; E11.22 Type 2 diabetes mellitus with diabetic chronic kidney disease; E11.40 Type 2 diabetes mellitus with diabetic neuropathy, unspecified; E87.5 Hyperkalemia; T38.0X5A Adverse effect of glucocorticoids and synthetic analogues, initial encounter; Z96.1 Presence of intraocular lens; N18.9 Chronic kidney disease, unspecified; I12.9 Hypertensive chronic kidney disease with stage 1 through stage 4 chronic kidney disease, or unspecified chronic kidney disease; K58.0 Irritable bowel syndrome with diarrhea; E83.89 Other disorders of mineral metabolism; Z83.3 Family history of diabetes mellitus; Z80.42 Family history of malignant neoplasm of prostate; Z80.3 Family history of malignant neoplasm of breast; Z98.42 Cataract extraction status, left eye; Z98.41 Cataract extraction status, right eye; Z99.2 Dependence on renal dialysis; Z85.828 Personal history of other malignant neoplasm of skin; Z79.899 Other long term (current) drug therapy; Z79.82 Long term (current) use of aspirin; Z79.4 Long term (current) use of insulin; Z79.52 Long term (current) use of systemic steroids; Z88.2 Allergy status to sulfonamides; Z90.49 Acquired absence of other specified parts of digestive tract; Z98.891 History of uterine scar from previous surgery; Z98.51 Tubal ligation status; Z98.890 Other specified postprocedural states
CPT/HCPCS: 36415; 71046; 80053; 83605; 83735; 83880; 84100; 84484; 85025; 85610; 85730; 87635; 90935; 93005; 96374; 96375; 99285

== ENCOUNTER 2020-11-03 18:18 | Inpatient (IN) | payer MEDICARE, BC ==
[2020-11-03] MEDS ORDERED: ALBUTEROL HFA INHALER INHALATION STA (18:30)
[2020-11-03] MEDS ORDERED: ALBUTEROL HFA INHALER INHALATION PRN (18:30)
[2020-11-03] MEDS ORDERED: ACETAMINOPHEN TAB 500 MG TAB PO PRN (18:30)
--- NOTE | 2020-11-03 18:39 | ED ---
General Adult HPI - General Chief complaint: Shortness of Breath Stated complaint: +covid/sob Time Seen by Provider: 11/03/20 18:29 Source: patient, RN notes reviewed Mode of arrival: wheelchair Limitations: no limitations - History of Present Illness Initial comments: Patient is a pleasant 5 he 4-year-old female presenting to the emergency Department with complaints of difficulty in breathing. Onset of symptoms was just 2 days ago. Patient states she was diagnosed positive for rotavirus and admitted to the hospital. Patient recently discharged. Patient states symptoms have worsened today. No leg pain or leg swelling. Patient is having some subjective fevers chills and myalgias. Patient is fatigued. Patient is maintained complaint is her breathing. Patient does have occasional cough with yellow sputum. No history of chronic lung problems. - Related Data Home Medications Medication Instructions Recorded Confirmed Gabapentin [Neurontin] 300 mg PO DAILY PRN 06/27/16 11/03/20 Aspirin [Adult Low Dose Aspirin EC] 81 mg PO DAILY 09/16/16 11/03/20 amLODIPine [Norvasc] 10 mg PO HS 11/29/16 11/03/20 Insulin Glargine,Hum.rec.anlog 21 unit SQ HS 07/08/18 11/03/20 [[place] U-100] Lidocaine-Prilocaine Cream [Emla 1 applic TOPICAL TUTHSA PRN 05/19/20 11/03/20 Cream 2.5%/2.5%] Ondansetron HCl [Zofran] 4 mg PO Q8H PRN 05/19/20 11/03/20 Calcium Acetate [PhosLo] 1,334 mg PO AC-BID 07/12/20 11/03/20 Calcium Acetate [PhosLo] 667 mg PO DAILY PRN 07/12/20 11/03/20 INSULIN ASPART (NovoLOG) [NovoLOG 10 unit SQ AC-TID 07/12/20 11/03/20 (formulary)] INSULIN ASPART (NovoLOG) [NovoLOG See Protocol SQ AC-TID 07/12/20 11/03/20 (formulary)] HYDROcodone/APAP 7.5-325MG [[place] 1 tablet PO BID PRN 07/13/20 11/03/20 7.5-325] Furosemide [Lasix] 80 mg PO BID 11/01/20 11/03/20 methylPREDNISolone Dose Pack See Taper PO DIRECTED 11/03/20 11/03/20 [Medrol Dose Pack] Previous Rx's Medication Instructions Recorded carvediloL [Coreg] 3.125 mg PO BID-W/MEALS #30 tab 07/16/20 hydrALAZINE HCL [Apresoline] 50 mg PO TID #90 tab 07/16/20 Famotidine [Pepcid] 20 mg PO BID #30 tablet 11/02/20 Ondansetron Odt [Zofran Odt] 4 mg PO Q8HR PRN #30 tab 11/02/20 Zinc Sulfate 220 mg PO BID #20 capsule 11/02/20 Allergies Allergy/AdvReac Type Severity Reaction Status Date / Time sulfamethoxazole AdvReac Nausea & Verified 11/03/20 19:41 [From Bactrim] Vomiting,dyspnea trimethoprim [From Bactrim] AdvReac Nausea & Verified 11/03/20 19:41 Vomiting,dyspnea Review of Systems ROS Statement: Those systems with pertinent positive or pertinent negative responses have been documented in the HPI. ROS Other: All systems not noted in ROS Statement are negative. Constitutional: Reports: fever, chills Eyes: Denies: eye pain ENT: Denies: ear pain Respiratory: Reports: cough, dyspnea Cardiovascular: Denies: chest pain Endocrine: Reports: fatigue Gastrointestinal: Denies: abdominal pain Genitourinary: Denies: dysuria Musculoskeletal: Denies: back pain Skin: Denies: rash Neurological: Denies: weakness Past Medical History Past Medical History: Diabetes Mellitus, Hypertension, Renal Disease Additional Past Medical History / Comment(s): ESRD with hemodialysis M/W/F, IDDM type II, past DKA, neuropathy bilateral feet/legs and alittle in hands, "fast heart rate"-had cardiac ablation, lymphedema bilateral lower legs/feet, gout R knee, mineral bone disease, IBS, R sided Mustafa's palsey.skin CA on back removed. covid 19 History of Any Multi-Drug Resistant Organisms: None Reported Past Surgical History: Appendectomy, Cardiac Ablation, Section, Cholecystectomy, Tubal Ligation Additional Past Surgical History / Comment(s): bilateral cataract removal with lens implants, C-sections, bilateral benign breast biopsies, AV graft left arm done 06-23-16 for dialysis, colonoscopy. Past Anesthesia/Blood Transfusion Reactions: Motion Sickness, Postoperative Nausea & Vomiting (PONV) Past Psychological History: No Psychological Hx Reported Smoking Status: Never smoker Past Alcohol Use History: None Reported Past Drug Use History: None Reported - Past Family History Father Family Medical History: Cancer, Diabetes Mellitus Additional Family Medical History / Comment(s): Father had prostate cancer. Mother Family Medical History: Cancer Additional Family Medical History / Comment(s): Mother had breast cancer. General Exam Limitations: no limitations General appearance: alert Head exam: Present: normocephalic Eye exam: Present: normal appearance Neck exam: Present: normal inspection Respiratory exam: Present: respiratory distress, wheezes (Right base), accessory muscle use Cardiovascular Exam: Present: regular rate, normal rhythm GI/Abdominal exam: Present: soft. Absent: tenderness Extremities exam: Present: normal inspection. Absent: pedal edema, calf tenderness Neurological exam: Present: alert Psychiatric exam: Present: normal affect, normal mood Skin exam: Present: normal color Course Vital Signs 11/03/20 18:22 Temperature 99.5 F Pulse Rate 64 Respiratory 28 H Rate Blood Pressure 207/84 O2 Sat by Pulse 93 L Oximetry EKG Findings - EKG Comments: EKG Findings:: Sinus rhythm with rate of 72. CA 178. QRS 90. QT 538. QTC 589. Normal axis. Premature complexes present. Severe motion artifact is present. Medical Decision Making - Medical Decision Making Reevaluated and updated. Case discussed with Dr. Martinez, who will admit covering for Dr. Ingram - Lab Data Result diagrams: 11/03/20 18:49 11/03/20 18:49 Lab Results 11/03/20 11/03/20 11/03/20 Range/Units 18:49 18:49 18:49 WBC 6.4 (3.8-10.6) k/uL RBC 3.76 L (3.80-5.40) m/uL Hgb 11.6 (11.4-16.0) gm/dL Hct 35.2 (34.0-46.0) % MCV 93.7 (80.0-100.0) fL MCH 30.9 (25.0-35.0) pg MCHC 33.0 (31.0-37.0) g/dL RDW 14.7 (11.5-15.5) % Plt Count 181 (150-450) k/uL MPV 8.3 Neutrophils % 68 % Lymphocytes % 19 % Monocytes % 8 % Eosinophils % 0 % Basophils % 3 % Neutrophils # 4.4 (1.3-7.7) k/uL Lymphocytes # 1.2 (1.0-4.8) k/uL Monocytes # 0.5 (0-1.0) k/uL Eosinophils # 0.0 (0-0.7) k/uL Basophils # 0.2 (0-0.2) k/uL PT 11.4 (9.0-12.0) sec INR 1.1 (<1.2) APTT 25.2 (22.0-30.0) sec Sodium 132 L (137-145) mmol/L Potassium 6.3 H* (3.5-5.1) mmol/L Chloride 97 L (98-107) mmol/L Carbon Dioxide 23 (22-30) mmol/L Anion Gap 12 mmol/L BUN 35 H (7-17) mg/dL Creatinine 6.11 H (0.52-1.04) mg/dL Est GFR (CKD-EPI)AfAm 8 (>60 ml/min/1.73 sqM) Est GFR (CKD-EPI)NonAf 7 (>60 ml/min/1.73 sqM) Glucose 153 H (74-99) mg/dL Plasma Lactic Acid [place] (0.7-2.0) mmol/L Calcium 8.9 (8.4-10.2) mg/dL Magnesium 2.3 (1.6-2.3) mg/dL Total Bilirubin 1.2 (0.2-1.3) mg/dL AST 50 H (14-36) U/L ALT 24 (4-34) U/L Alkaline Phosphatase 124 (38-126) U/L Lactate Dehydrogenase 1118 H (313-618) U/L C-Reactive Protein 20.0 H (<10.0) mg/L Total Protein 9.7 H (6.3-8.2) g/dL Albumin 4.5 (3.5-5.0) g/dL 11/03/20 Range/Units 18:49 WBC (3.8-10.6) k/uL RBC (3.80-5.40) m/uL Hgb (11.4-16.0) gm/dL Hct (34.0-46.0) % MCV (80.0-100.0) fL MCH (25.0-35.0) pg MCHC (31.0-37.0) g/dL RDW (11.5-15.5) % Plt Count (150-450) k/uL MPV Neutrophils % % Lymphocytes % % Monocytes % % Eosinophils % % Basophils % % Neutrophils # (1.3-7.7) k/uL Lymphocytes # (1.0-4.8) k/uL Monocytes # (0-1.0) k/uL Eosinophils # (0-0.7) k/uL Basophils # (0-0.2) k/uL PT (9.0-12.0) sec INR (<1.2) APTT (22.0-30.0) sec Sodium (137-145) mmol/L Potassium (3.5-5.1) mmol/L Chloride (98-107) mmol/L Carbon Dioxide (22-30) mmol/L Anion Gap mmol/L BUN (7-17) mg/dL Creatinine (0.52-1.04) mg/dL Est GFR (CKD-EPI)AfAm (>60 ml/min/1.73 sqM) Est GFR (CKD-EPI)NonAf (>60 ml/min/1.73 sqM) Glucose (74-99) mg/dL Plasma Lactic Acid [place] 1.7 (0.7-2.0) mmol/L Calcium (8.4-10.2) mg/dL Magnesium (1.6-2.3) mg/dL Total Bilirubin (0.2-1.3) mg/dL AST (14-36) U/L ALT (4-34) U/L Alkaline Phosphatase (38-126) U/L Lactate Dehydrogenase (313-618) U/L C-Reactive Protein (<10.0) mg/L Total Protein (6.3-8.2) g/dL Albumin (3.5-5.0) g/dL - Radiology Data Radiology results: image reviewed (Chest x-ray shows increased interstitial density similar to previous exam. No obvious heart failure.) Critical Care Time Critical Care Time: Yes Total Critical Care Time: 32 Disposition Clinical Impression: Hyperkalemia, Chronic renal failure syndrome, COVID-19 Disposition: ADMITTED IP TO THIS HOSP Condition: Serious Is patient prescribed a controlled substance at d/c from ED?: No Referrals: Piedad Ingram III, MD [Primary Care Provider] - 1-2 days Decision Time: 20:18
[2020-11-03] MEDS ORDERED: ACETAMINOPHEN TAB 500 MG TAB PO STA (18:40)
[2020-11-03] MEDS ORDERED: SODIUM CHLORIDE 0.9% 1,000 ML IV STA (18:40)
[2020-11-03 19:14] LABS: INR 1.1 (<1.2); Partial Thromboplastin Time 25.2 sec (22.0-30.0); Prothrombin Time 11.4 sec (9.0-12.0)
[2020-11-03 19:21] LABS: Basophils # (A) 0.2 k/uL (0-0.2); Basophils % (A) 3 %; Eosinophils % (A) 0 %; HCT 35.2 % (34.0-46.0); HGB 11.6 gm/dL (11.4-16.0); Lymphocytes # (A) 1.2 k/uL (1.0-4.8); Lymphocytes % (A) 19 %; MCH 30.9 pg (25.0-35.0); MCV 93.7 fL (80.0-100.0); Mean Platelet Volume 8.3; Monocytes # (A) 0.5 k/uL (0-1.0); Monocytes % (A) 8 %; Neutrophils # (A) 4.4 k/uL (1.3-7.7); Neutrophils % (A) 68 %; Platelet Count 181 k/uL (150-450); RBC 3.76 m/uL (3.80-5.40); RDW 14.7 % (11.5-15.5); WBC 6.4 k/uL (3.8-10.6)
[2020-11-03 19:41] LABS: Albumin 4.5 g/dL (3.5-5.0); Calcium 8.9 mg/dL (8.4-10.2); Magnesium 2.3 mg/dL (1.6-2.3); Total Bilirubin 1.2 mg/dL (0.2-1.3); Total Protein 9.7 g/dL (6.3-8.2)
[2020-11-03 19:44] LABS: Potassium 6.3 mmol/L (3.5-5.1)
--- NOTE | 2020-11-03 20:00 | XR ---
EXAMINATION TYPE: XR chest 1V portable DATE OF EXAM: 11/03/2020 COMPARISON: 11/01/2020 HISTORY: Short of breath. Cough. TECHNIQUE: Single view FINDINGS: Heart is enlarged. There is mild coarsening of the interstitial pulmonary markings. There a re chest leads. Costophrenic angles are clear. There is no obvious heart failure. IMPRESSION: Increased interstitial pulmonary density similar to old exam. No obvious heart failure. S table cardiomegaly.
[2020-11-03] MEDS ORDERED: DEXTROSE 50% SYRINGE 50 ML IVP ONE (20:04)
[2020-11-03] MEDS ORDERED: SODIUM POLYSTYRENE SULFONATE 15 GM/60 ML BOTTLE PO ONE (20:04)
[2020-11-03] MEDS ORDERED: INSULIN REGULAR 100 UNIT/ML VIAL IV ONE (20:04)
[2020-11-03] MEDS ORDERED: CALCIUM GLUCONATE 1 GM in SODIUM CHLORIDE 0.9% 100 ML IVPB ONE (20:15)
[2020-11-03] MEDS ORDERED: NALOXONE 0.4 MG/ML 1 ML VIAL IV PRN (20:19)
[2020-11-03] MEDS: ALBUTEROL HFA INHALER INHALATION SCH (20:21)
[2020-11-03] MEDS ORDERED: ZINC SULFATE 220 MG CAP PO SCH (20:30)
[2020-11-03] MEDS: CHOLECALCIFEROL 1,000 UNIT TAB PO SCH (20:58)
[2020-11-03 21:42] LABS: Glucose,Whole Blood 69 mg/dL (75-99)
[2020-11-03 21:57] LABS: Glucose,Whole Blood 67 mg/dL (75-99)
[2020-11-03] MEDS ORDERED: ONDANSETRON 4 MG TAB PO PRN (22:09)
[2020-11-03] MEDS ORDERED: ONDANSETRON ODT 4 MG TAB PO PRN (22:09)
[2020-11-03] MEDS ORDERED: GABAPENTIN 300 MG CAP PO PRN (22:09)
[2020-11-03] MEDS ORDERED: HYDROcodone/APAP 7.5-325MG 1 EACH TAB PO PRN (22:09)
[2020-11-03 22:10] LABS: Glucose,Whole Blood 69 mg/dL (75-99)
[2020-11-03] MEDS ORDERED: FAMOTIDINE 20 MG TAB PO SCH (22:15)
[2020-11-03] MEDS ORDERED: amLODIPine 10 MG TAB PO SCH (22:15)
[2020-11-03 22:26] LABS: Glucose,Whole Blood 81 mg/dL (75-99)
[2020-11-03] MEDS: CALCIUM ACETATE 667 MG TAB PO SCH (22:29)
[2020-11-03] MEDS: FUROSEMIDE 80 MG TAB PO SCH (22:30)
[2020-11-03] MEDS: hydrALAZINE HCL 50 MG TAB PO SCH (22:34)
[2020-11-03] MEDS: ASCORBIC ACID 500 MG TAB PO SCH (22:35)
[2020-11-03] MEDS: DEXAMETHASONE SOD PHOSPHATE 10 MG/ML 1 ML VIAL IV SCH (22:35)
[2020-11-03] MEDS: ZINC SULFATE 220 MG CAP PO SCH (22:36)
[2020-11-04] MEDS: ALBUTEROL HFA INHALER INHALATION SCH ×4 (01:54→19:52)
[2020-11-04] MEDS: CALCIUM ACETATE 667 MG TAB PO SCH ×2 (06:36→18:55)
[2020-11-04] MEDS: carvediloL 3.125 MG TAB PO SCH ×2 (06:36→18:55)
[2020-11-04] MEDS: hydrALAZINE HCL 50 MG TAB PO SCH (06:45)
[2020-11-04 06:51] LABS: Glucose,Whole Blood 289 mg/dL (75-99)
[2020-11-04] MEDS: INSULIN ASPART (NovoLOG) 100 UNIT/ML VIAL SQ SCH ×6 (07:11→19:34)
[2020-11-04] MEDS ORDERED: LIDOCAINE-PRILOCAINE 2.5-2.5% CREAM 5 GM TUBE TOPICAL PRN (09:00)
[2020-11-04] MEDS ORDERED: ASPIRIN 81 MG PO SCH (09:00)
[2020-11-04] MEDS ORDERED: ENOXAPARIN 30 MG/0.3 ML SYRINGE SQ SCH (09:00)
--- NOTE | 2020-11-04 09:44 | P.CRDCN ---
History of Present Illness History of present illness: HISTORY OF PRESENTING ILLNESS This is a pleasant 64-year-old female past medical history significant for end-stage renal disease on hemodialysis last treatment 2 days ago, chronic diastolic heart failure, hypertension and diabetes mellitus. She follows in the office with Dr. Hein. We have been asked to see in consultation for ventricular tachycardia. She was recently admitted to the hospital and discharged on Sunday with Covid 19. She was home for less than 24 hours and she felt as though her breathing was unstable and she returned to the hospital. On arrival her potassium was 6.3. She had a run of nonsustained wide complex ventricular tachycardia, 10 beats. During that time she did feel dizzy and lightheaded. She denies symptoms of chest pain. She was given D5, calcium gluconate and insulin. Repeat potassium is 3.8. She has had no further arrhythmia noted on the monitor. DIAGNOSTICS EKG reveals sinus mechanism with first-degree AV block with PVCs. Chest xray increased interstitial pulmonary density with no obvious heart failure. Laboratory reviewed, CBC unremarkable, sodium 132, initial potassium 6. 3 repeat after treatment 3.8, creatinine 6.11, magnesium 2.3, NT proBNP 47,900. Current cardiac medications include aspirin 81 mg daily, Lasix 80 mg twice a day, amlodipine 10 mg at bedtime, Coreg 3.125 mg twice a day and hydralazine 50 mg 3 times a day. Most recent echocardiogram obtained June 2020 revealed preserved LV systolic function with ejection fraction 50-55%, grade 2 diastolic dysfunction, mild mitral regurgitation and mild tricuspid regurgitation with mild to moderate pulmonary hypertension. REVIEW OF SYSTEMS At the time of my exam: CONSTITUTIONAL: Denies fever or chills. CARDIOVASCULAR: Complains of shortness of breath. Denies chest pain, orthopnea, PND or palpitations. RESPIRATORY: Denies cough. GASTROINTESTINAL: Denies abdominal pain, diarrhea, constipation, nausea or vomiting. MUSCULOSKELETAL: Denies myalgias. NEUROLOGIC: Denies numbness, tingling or weakness. ENDOCRINE: Denies fatigue, weight change, polydipsia or polyurina. GENITOURINARY: Denies burning, hematuria or urgency with micturation. HEMATOLOGIC: Denies history of anemia or bleeding. PHYSICAL EXAMINATION Blood pressure 192/93 heart rate 65 afebrile and maintaining oxygen saturation on nasal cannula. CONSTITUTIONAL: No apparent distress. HEENT: Head is normocephalic. Pupils are equal, round. Sclerae anicteric. Mucous membranes of the mouth are moist. No JVD. No carotid bruit. CHEST EXAMINATION: Lungs are clear to auscultation. No chest wall tenderness is noted on palpation or with deep breathing. Diminished bilaterally. HEART EXAMINATION: Regular rate and rhythm. S1, S2 heard. Systolic ejection murmur at the left sternal border, no gallops or rub. ABDOMEN: Soft, nontender. Positive bowel sounds. EXTREMITIES: 2+ peripheral pulses, trace bilateral lower extremity edema and no calf tenderness. NEUROLOGIC EXAMINATION: Patient is awake, alert and oriented x3. ASSESSMENT Nonsustained ventricular tachycardia secondary to hyperkalemia Hyperkalemia, improved End-stage renal disease on hemodialysis Covid 19 Hypertension Chronic diastolic heart failure, clinically euvolemic Diabetes mellitus PLAN Patient will likely undergo hemodialysis today, awaiting nephrology evaluation. Increase hydralazine to 75 mg 3 times a day for optimal blood pressure control. Continue Coreg at 3.125 mg twice a day, heart rates in the 50s to 60s currently. Ventricular tachycardia secondary to hyperkalemia. No further arrhythmia noted since correction of potassium. Thank you kindly for this consultation. Nurse Practitioner note has been reviewed, I agree with a documented findings and plan of care. Patient was seen and examined. Past Medical History Past Medical History: Diabetes Mellitus, Hypertension, Renal Disease Additional Past Medical History / Comment(s): ESRD with hemodialysis t,th, sat, IDDM type II, past DKA, neuropathy bilateral feet/legs and alittle in hands, "fast heart rate"-had cardiac ablation, lymphedema bilateral lower legs/feet, gout R knee, mineral bone disease, IBS, R sided Mustafa's palsey.skin CA on back removed. covid 19 History of Any Multi-Drug Resistant Organisms: None Reported Past Surgical History: Appendectomy, Cardiac Ablation, Section, Cholecystectomy, Tubal Ligation Additional Past Surgical History / Comment(s): bilateral cataract removal with lens implants, C-sections, bilateral benign breast biopsies, AV graft left arm done 06-23-16 for dialysis, colonoscopy. Past Anesthesia/Blood Transfusion Reactions: Motion Sickness, Postoperative Nausea & Vomiting (PONV) Smoking Status: Never smoker - Past Family History Father Family Medical History: Cancer, Diabetes Mellitus Additional Family Medical History / Comment(s): Father had prostate cancer. Mother Family Medical History: Cancer Additional Family Medical History / Comment(s): Mother had breast cancer. Medications and Allergies Home Medications Medication Instructions Recorded Confirmed Type Gabapentin [Neurontin] 300 mg PO DAILY PRN 06/27/16 11/03/20 History Aspirin [Adult Low Dose Aspirin EC] 81 mg PO DAILY 09/16/16 11/03/20 History amLODIPine [Norvasc] 10 mg PO HS 11/29/16 11/03/20 History Insulin Glargine,Hum.rec.anlog 21 unit SQ HS 07/08/18 11/03/20 History [Basaglar Kwikpen U-100] Lidocaine-Prilocaine Cream [Emla 1 applic TOPICAL TUTHSA PRN 05/19/20 11/03/20 History Cream 2.5%/2.5%] Ondansetron HCl [Zofran] 4 mg PO Q8H PRN 05/19/20 11/03/20 History Calcium Acetate [PhosLo] 1,334 mg PO AC-BID 07/12/20 11/03/20 History Calcium Acetate [PhosLo] 667 mg PO DAILY PRN 07/12/20 11/03/20 History INSULIN ASPART (NovoLOG) [NovoLOG 10 unit SQ AC-TID 07/12/20 11/03/20 History (formulary)] INSULIN ASPART (NovoLOG) [NovoLOG See Protocol SQ AC-TID 07/12/20 11/03/20 History (formulary)] HYDROcodone/APAP 7.5-325MG [[place] 1 tablet PO BID PRN 07/13/20 11/03/20 History 7.5-325] carvediloL [Coreg] 3.125 mg PO BID-W/MEALS #30 tab 07/16/20 11/03/20 Rx hydrALAZINE HCL [Apresoline] 50 mg PO TID #90 tab 07/16/20 11/03/20 Rx Furosemide [Lasix] 80 mg PO BID 11/01/20 11/03/20 History Famotidine [Pepcid] 20 mg PO BID #30 tablet 11/02/20 11/03/20 Rx Ondansetron Odt [Zofran Odt] 4 mg PO Q8HR PRN #30 tab 11/02/20 11/03/20 Rx Zinc Sulfate 220 mg PO BID #20 capsule 11/02/20 11/03/20 Rx methylPREDNISolone Dose Pack See Taper PO DIRECTED 11/03/20 11/03/20 History [Medrol Dose Pack] Allergies Allergy/AdvReac Type Severity Reaction Status Date / Time sulfamethoxazole AdvReac Nausea & Verified 11/03/20 19:41 [From Bactrim] Vomiting,dyspnea trimethoprim [From Bactrim] AdvReac Nausea & Verified 11/03/20 19:41 Vomiting,dyspnea Physical Exam Vitals: Vital Signs Temp Pulse Pulse Resp BP BP Pulse Ox 11/04/20 04:00 98.1 F 65 20 192/93 96 11/04/20 02:00 57 L 18 11/04/20 00:30 97.8 F 57 L 18 169/79 96 11/03/20 21:30 98.1 F 60 18 179/81 98 11/03/20 20:39 65 18 183/80 98 11/03/20 18:22 99.5 F 64 28 H 207/84 93 L Intake and Output 11/03/20 11/04/20 11/04/20 22:59 06:59 14:59 Output Total 0 Balance 0 Output: Urine 0 Other: Weight 104.326 kg 97 kg Results 11/03/20 18:49 11/03/20 23:43 Cardiac Enzymes 11/03/20 Range/Units 18:49 AST 50 H (14-36) U/L Lactate Dehydrogenase 1118 H (313-618) U/L Coagulation 11/03/20 Range/Units 18:49 PT 11.4 (9.0-12.0) sec APTT 25.2 (22.0-30.0) sec CBC 11/03/20 Range/Units 18:49 WBC 6.4 (3.8-10.6) k/uL RBC 3.76 L (3.80-5.40) m/uL Hgb 11.6 (11.4-16.0) gm/dL Hct 35.2 (34.0-46.0) % Plt Count 181 (150-450) k/uL Comprehensive Metabolic Panel 11/03/20 11/03/20 Range/Units 18:49 23:43 Sodium 132 L (137-145) mmol/L Potassium 6.3 H* 3.8 (3.5-5.1) mmol/L Chloride 97 L (98-107) mmol/L Carbon Dioxide 23 (22-30) mmol/L BUN 35 H (7-17) mg/dL Creatinine 6.11 H (0.52-1.04) mg/dL Glucose 153 H (74-99) mg/dL Calcium 8.9 (8.4-10.2) mg/dL AST 50 H (14-36) U/L ALT 24 (4-34) U/L Alkaline Phosphatase 124 (38-126) U/L Total Protein 9.7 H (6.3-8.2) g/dL Albumin 4.5 (3.5-5.0) g/dL Current Medications Generic Name Dose Route Start Last Admin Trade Name Freq PRN Reason Stop Dose Admin Acetaminophen 1,000 mg 11/03/20 18:30 Acetaminophen Tab 500 Mg Tab PO Q6HR PRN Fever>101 Hydrocodone Bitart/Acetaminophen 1 each 11/03/20 22:09 11/03/20 22:34 Hydrocodone/Apap 7.5-325mg 1 Each Tab PO 1 each BID PRN Administration Pain Albuterol Sulfate 2 puff 11/03/20 20:00 11/04/20 08:20 Albuterol Hfa Inhaler INHALATION 2 puff RT-Q6H ELIF Administration Albuterol Sulfate 2 puff 11/03/20 18:30 Albuterol Hfa Inhaler INHALATION RT-Q6H PRN Shortness Of Breath Or Wheezing Amlodipine Besylate 10 mg 11/03/20 22:15 11/03/20 22:34 Amlodipine 10 Mg Tab PO 10 mg HS ELIF Administration Ascorbic Acid 500 mg 11/03/20 21:30 11/03/20 22:35 Ascorbic Acid 500 Mg Tab PO 500 mg BID ELIF Administration Aspirin 81 mg 11/04/20 09:00 Aspirin 81 Mg PO DAILY ELIF Calcium Acetate 1,334 mg 11/03/20 22:15 11/04/20 06:36 Calcium Acetate 667 Mg Tab PO 1,334 mg AC-BID ELIF Administration Carvedilol 3.125 mg 11/04/20 07:30 11/04/20 06:36 Carvedilol 3.125 Mg Tab PO 3.125 mg BID-W/MEALS ELIF Administration Cholecalciferol 5,000 unit 11/03/20 20:30 11/03/20 20:58 Cholecalciferol 1,000 Unit Tab PO Not Given DAILY [facility] Dexamethasone Sodium Phosphate 6 mg 11/03/20 22:00 11/03/20 22:35 Dexamethasone Sod Phosphate 10 Mg/Ml 1 Ml Vial IV 6 mg DAILY [facility] Administration Enoxaparin Sodium 30 mg 11/04/20 09:00 Enoxaparin 30 Mg/0.3 Ml Syringe SQ DAILY ELIF Famotidine 20 mg 11/03/20 22:15 11/03/20 22:34 Famotidine 20 Mg Tab PO 20 mg BID [facility] Administration Furosemide 80 mg 11/03/20 22:15 11/03/20 22:30 Furosemide 80 Mg Tab PO Not Given BID [facility] Gabapentin 300 mg 11/03/20 22:09 Gabapentin 300 Mg Cap PO DAILY PRN [facility] Hydralazine HCl 75 mg 11/04/20 09:00 Hydralazine Hcl 25 Mg Tab PO TID [facility] Insulin Aspart 0 unit 11/04/20 07:30 11/04/20 07:11 Insulin Aspart (Novolog) 100 Unit/Ml Vial SQ 5 unit AC-TID [facility] Administration Protocol Insulin Aspart 10 unit 11/04/20 07:30 11/04/20 07:11 Insulin Aspart (Novolog) 100 Unit/Ml Vial SQ 10 unit AC-TID [facility] Administration Insulin Detemir 21 unit 11/04/20 21:00 Insulin Detemir (Levemir) 100 Unit/Ml Syr SQ [facility] Lidocaine/Prilocaine 1 applic 11/04/20 09:00 Lidocaine-Prilocaine 2.5-2.5% Cream 5 Gm Tube TOPICAL TUTHSA PRN DIALYIS DAYS Naloxone HCl 0.2 mg 11/03/20 20:19 Naloxone 0.4 Mg/Ml 1 Ml Vial IV Q2M PRN Opioid Reversal Ondansetron HCl 4 mg 11/03/20 22:09 Ondansetron Odt 4 Mg Tab PO Q8HR PRN Nausea And Vomiting Zinc Sulfate 220 mg 11/03/20 22:15 11/03/20 22:36 Zinc Sulfate 220 Mg Cap PO 220 mg BID [facility] Administration Intake and Output 11/03/20 11/04/20 11/04/20 22:59 06:59 14:59 Output Total 0 Balance 0 Output: Urine 0 Other: Weight 104.326 kg 97 kg 11/03/20 18:49 11/03/20 23:43
[2020-11-04 11:22] LABS: Ferritin 3482.3 ng/mL (10.0-291.0)
[2020-11-04 12:10] LABS: Glucose,Whole Blood 240 mg/dL (75-99)
[2020-11-04] MEDS ORDERED: hydrALAZINE HCL 20 MG/ML 1 ML VIAL IVP PRN (12:15)
--- NOTE | 2020-11-04 12:18 | P.NPCON ---
History of Present Illness - Reason for Consult end stage renal disease - History of Present Illness Reason for consultation: End-stage renal disease History of present illness: Patient is a 64-year-old female seen in renal consultation for end-stage renal disease. She is maintained on hemodialysis on Sunday schedule but is currently on a Sunday schedule as she is at a different unit for dialysis for the next 2 weeks due to Covid infection. Last treatment was on Sunday. She is due for dialysis today. Patient was just discharged from the hospital 2 days ago but returned due to worsening shortness of breath. She is currently on room air. Denies chest pain. Does admit to dyspnea especially with exertion. Oral intake is fair. No vomiting or diarrhea. Blood pressure on the higher side. Chest x-ray was not suggestive of heart failure. Increased interstitial pulmonary density was noted. She is afebrile. White count normal. Denies any significant cough. Patient's potassium level was high at 6.3 and was medically treated. Repeat potassium level was 3.8 last night. Vital signs are stable. General: The patient appeared well nourished and normally developed. HEENT: Head exam is unremarkable. Neck is without jugular venous distension. LUNGS: Breath sounds decreased. HEART: Rate and Rhythm are regular. ABDOMEN: Soft, nontender. EXTREMITITES: 1-2+ edema. Chronic lymphedema. Past Medical History Past Medical History: Diabetes Mellitus, Hypertension, Renal Disease Additional Past Medical History / Comment(s): ESRD with hemodialysis t,, sun, IDDM type II, past DKA, neuropathy bilateral feet/legs and alittle in hands, "fast heart rate"-had cardiac ablation, lymphedema bilateral lower legs/feet, gout R knee, mineral bone disease, IBS, R sided Mustafa's palsey.skin CA on back removed. covid 19 History of Any Multi-Drug Resistant Organisms: None Reported Past Surgical History: Appendectomy, Cardiac Ablation, Section, Cholecystectomy, Tubal Ligation Additional Past Surgical History / Comment(s): bilateral cataract removal with lens implants, C-sections, bilateral benign breast biopsies, AV graft left arm done 06-23-16 for dialysis, colonoscopy. Past Anesthesia/Blood Transfusion Reactions: Motion Sickness, Postoperative Nausea & Vomiting (PONV) Smoking Status: Never smoker - Past Family History Father Family Medical History: Cancer, Diabetes Mellitus Additional Family Medical History / Comment(s): Father had prostate cancer. Mother Family Medical History: Cancer Additional Family Medical History / Comment(s): Mother had breast cancer. Medications and Allergies Home Medications Medication Instructions Recorded Confirmed Type Gabapentin [Neurontin] 300 mg PO DAILY PRN 06/27/16 11/03/20 History Aspirin [Adult Low Dose Aspirin EC] 81 mg PO DAILY 09/16/16 11/03/20 History amLODIPine [Norvasc] 10 mg PO HS 11/29/16 11/03/20 History Insulin Glargine,Hum.rec.anlog 21 unit SQ HS 07/08/18 11/03/20 History [Basaglar Kwikpen U-100] Lidocaine-Prilocaine Cream [Emla 1 applic TOPICAL TUTHSA PRN 05/19/20 11/03/20 History Cream 2.5%/2.5%] Ondansetron HCl [Zofran] 4 mg PO Q8H PRN 05/19/20 11/03/20 History Calcium Acetate [PhosLo] 1,334 mg PO AC-BID 07/12/20 11/03/20 History Calcium Acetate [PhosLo] 667 mg PO DAILY PRN 07/12/20 11/03/20 History INSULIN ASPART (NovoLOG) [NovoLOG 10 unit SQ AC-TID 07/12/20 11/03/20 History (formulary)] INSULIN ASPART (NovoLOG) [NovoLOG See Protocol SQ AC-TID 07/12/20 11/03/20 Hist ory (formulary)] HYDROcodone/APAP 7.5-325MG [[place] 1 tablet PO BID PRN 07/13/20 11/03/20 History 7.5-325] carvediloL [Coreg] 3.125 mg PO BID-W/MEALS #30 tab 07/16/20 11/03/20 Rx hydrALAZINE HCL [Apresoline] 50 mg PO TID #90 tab 07/16/20 11/03/20 Rx Furosemide [Lasix] 80 mg PO BID 11/01/20 11/03/20 History Famotidine [Pepcid] 20 mg PO BID #30 tablet 11/02/20 11/03/20 Rx Ondansetron Odt [Zofran Odt] 4 mg PO Q8HR PRN #30 tab 11/02/20 11/03/20 Rx Zinc Sulfate 220 mg PO BID #20 capsule 11/02/20 11/03/20 Rx methylPREDNISolone Dose Pack See Taper PO DIRECTED 11/03/20 11/03/20 History [Medrol Dose Pack] Allergies Allergy/AdvReac Type Severity Reaction Status Date / Time sulfamethoxazole AdvReac Nausea & Verified 11/03/20 19:41 [From Bactrim] Vomiting,dyspnea trimethoprim [From Bactrim] AdvReac Nausea & Verified 11/03/20 19:41 Vomiting,dyspnea Physical Exam Vitals: Vital Signs Temp Pulse Pulse Resp BP BP Pulse Ox 11/04/20 08:00 97.5 F L 64 20 163/73 95 11/04/20 04:00 98.1 F 65 20 192/93 96 11/04/20 02:00 57 L 18 11/04/20 00:30 97.8 F 57 L 18 169/79 96 11/03/20 21:30 98.1 F 60 18 179/81 98 11/03/20 20:39 65 18 183/80 98 11/03/20 18:22 99.5 F 64 28 H 207/84 93 L Intake and Output 11/03/20 11/04/20 11/04/20 22:59 06:59 14:59 Output Total 0 Balance 0 Output: Urine 0 Other: Weight 104.326 kg 97 kg Results - Lab Results Most recent lab results Calcium 8.9 mg/dL (8.4-10.2) 11/03/20 18:49 Magnesium 2.3 mg/dL (1.6-2.3) 11/03/20 18:49 11/03/20 18:49 11/03/20 23:43 Assessment and Plan Plan: assessment: 1. End-stage renal disease maintained on hemodialysis on Sunday schedule. Currently on a sunday schedule due to Covid infection. 2. Covid pneumonia maintained on steroids and zinc. 3. Volume overload. 4. Chronic kidney disease mineral bone disease maintained on PhosLo. 5. Hypertension with chronic kidney disease. Hydralazine dose increased by card iology. 6. Acute on chronic diastolic CHF. 7. Diabetes mellitus. Plan: Hemodialysis today with goal 3 L ultrafiltration. Add hydralazine 10 mg every 4 hours as needed for systolic blood pressure gr eater than 160. Thank you for the consultation. I will continue to follow the patient with you during her hospital stay
--- NOTE | 2020-11-04 12:24 | P.HPIM ---
History of Present Illness 63-year-old pleasant female was a readmitted after she was discharged from my service 2 days ago. During her previous hospitalization patient was diagnosed with covid 19, patient was admitted for acute hypoxic respiratory failure at the time which was believed secondary to mostly CHF and coronavirus pneumonia. At the time of discharge patient was not requiring oxygen saturating well on room air and patient was discharged on Medrol Dosepak and was discharged home. Patient came in yesterday with complaints of shortness of breath. I was told patient was severely hypoxic because of which we admitted the patient and I believe patient was on 2 L of oxygen. Patient is presently saturating 95% without any oxygen although she complains of shortness of breath while walking to the bathroom. Patient didn't receive hemodialysis today at. Discussed with nephrology patient will undergo hemodialysis with removal of 3 L of fluid. Chest x-ray is more consistent with fluid overload than Covid 19 pneumonia. After the hemodialysis will ablate the patient and if patient is not requiring oxygen patient will be discharged. Patient blood sugars were still low normal on admission but now higher because of Decadron because of those low normal blood sugars down the pre-meal insulin to 5 units and patient will be asked to check her blood sugars closely. Patient is also found to be hyperkalemic on admission with admission potassium was 6.3 patient received the D5 with insulin with significant improvement in potassium. Patient also had episode of nonsustained VT for which cardiology evaluated the patient and they believe this nonsustained VT secondary to elevated potassium no further intervention or workup is being planned from their perspective. Patient's magnesium is 2.3. Review of Systems REVIEW OF SYSTEMS: CONSTITUTIONAL: No fever, no malaise, no fatigue. HEENT: No recent visual problems or hearing problems. Denied any sore throat. CARDIOVASCULAR: No chest pain, orthopnea, PND, no palpitations, no syncope. PULMONARY: no hemoptysis. GASTROINTESTINAL: No diarrhea, no nausea, no vomiting, no abdominal pain. NEUROLOGICAL: No headaches, no weakness, no numbness. HEMATOLOGICAL: Denies any bleeding or petechiae. GENITOURINARY: Denies any burning micturition, frequency, or urgency. MUSCULOSKELETAL/RHEUMATOLOGICAL: Denies any joint pain, swelling, or any muscle pain. ENDOCRINE: Denies any polyuria or polydipsia. The rest of the 14-point review of systems is negative. Past Medical History Past Medical History: Diabetes Mellitus, Hypertension, Renal Disease Additional Past Medical History / Comment(s): ESRD with hemodialysis t,th, sat, IDDM type II, past DKA, neuropathy bilateral feet/legs and alittle in hands, "fast heart rate"-had cardiac ablation, lymphedema bilateral lower legs/feet, gout R knee, mineral bone disease, IBS, R sided Mustafa's palsey.skin CA on back removed. covid 19 History of Any Multi-Drug Resistant Organisms: None Reported Past Surgical History: Appendectomy, Cardiac Ablation, Section, Cholecystectomy, Tubal Ligation Additional Past Surgical History / Comment(s): bilateral cataract removal with lens implants, C-sections, bilateral benign breast biopsies, AV graft left arm done 06-23-16 for dialysis, colonoscopy. Past Anesthesia/Blood Transfusion Reactions: Motion Sickness, Postoperative Nausea & Vomiting (PONV) Smoking Status: Never smoker - Past Family History Father Family Medical History: Cancer, Diabetes Mellitus Additional Family Medical History / Comment(s): Father had prostate cancer. Mother Family Medical History: Cancer Additional Family Medical History / Comment(s): Mother had breast cancer. Medications and Allergies Home Medications Medication Instructions Recorded Confirmed Type Gabapentin [Neurontin] 300 mg PO DAILY PRN 06/27/16 11/03/20 History Aspirin [Adult Low Dose Aspirin EC] 81 mg PO DAILY 09/16/16 11/03/20 History amLODIPine [Norvasc] 10 mg PO HS 11/29/16 11/03/20 History Insulin Glargine,Hum.rec.anlog 21 unit SQ HS 07/08/18 11/03/20 History [Vin Rollins U-100] Lidocaine-Prilocaine Cream [Emla 1 applic TOPICAL TUTHSA PRN 05/19/20 11/03/20 History Cream 2.5%/2.5%] Ondansetron HCl [Zofran] 4 mg PO Q8H PRN 05/19/20 11/03/20 History Calcium Acetate [PhosLo] 1,334 mg PO AC-BID 07/12/20 11/03/20 History Calcium Acetate [PhosLo] 667 mg PO DAILY PRN 07/12/20 11/03/20 History INSULIN ASPART (NovoLOG) [NovoLOG See Protocol SQ AC-TID 07/12/20 11/03/20 History (formulary)] HYDROcodone/APAP 7.5-325MG [[place] 1 tablet PO BID PRN 07/13/20 11/03/20 History 7.5-325] carvediloL [Coreg] 3.125 mg PO BID-W/MEALS #30 tab 07/16/20 11/03/20 Rx hydrALAZINE HCL [Apresoline] 50 mg PO TID #90 tab 07/16/20 11/03/20 Rx Furosemide [Lasix] 80 mg PO BID 11/01/20 11/03/20 History Famotidine [Pepcid] 20 mg PO BID #30 tablet 11/02/20 11/03/20 Rx Ondansetron Odt [Zofran Odt] 4 mg PO Q8HR PRN #30 tab 11/02/20 11/03/20 Rx Zinc Sulfate 220 mg PO BID #20 capsule 11/02/20 11/03/20 Rx methylPREDNISolone Dose Pack See Taper PO DIRECTED 11/03/20 11/03/20 History [Medrol Dose Pack] Albuterol Inhaler [Ventolin Hfa 2 puff INHALATION RT-QID PRN #1 11/04/20 Rx Inhaler] inhaler INSULIN ASPART (NovoLOG) [NovoLOG 5 unit SQ AC-TID #0 11/04/20 11/03/20 Rx (formulary)] Allergies Allergy/AdvReac Type Severity Reaction Status Date / Time sulfamethoxazole AdvReac Nausea & Verified 11/03/20 19:41 [From Bactrim] Vomiting,dyspnea trimethoprim [From Bactrim] AdvReac Nausea & Verified 11/03/20 19:41 Vomiting,dyspnea Physical Exam Vitals: Vital Signs Temp Pulse Pulse Resp BP BP Pulse Ox 11/04/20 08:00 97.5 F L 64 20 163/73 95 11/04/20 04:00 98.1 F 65 20 192/93 96 11/04/20 02:00 57 L 18 11/04/20 00:30 97.8 F 57 L 18 169/79 96 11/03/20 21:30 98.1 F 60 18 179/81 98 11/03/20 20:39 65 18 183/80 98 11/03/20 18:22 99.5 F 64 28 H 207/84 93 L Intake and Output 11/03/20 11/04/20 11/04/20 22:59 06:59 14:59 Output Total 0 Balance 0 Output: Urine 0 Other: Weight 104.326 kg 97 kg PHYSICAL EXAMINATION: GENERAL: The patient is alert and oriented x3, not in any acute distress. Well developed, well nourished. HEENT: Pupils are round and equally reacting to light. EOMI. No scleral icterus. No conjunctival pallor. Normocephalic, atraumatic. No pharyngeal erythema. No thyromegaly. CARDIOVASCULAR: S1 and S2 present. No murmurs, rubs, or gallops. PULMONARY: Mild of bibasilar crackles were appreciated ABDOMEN: Soft, nontender, nondistended, normoactive bowel sounds. No palpable organomegaly. MUSCULOSKELETAL: No joint swelling or deformity. EXTREMITIES: No cyanosis, clubbing, or pedal edema. NEUROLOGICAL: Gross neurological examination did not reveal any focal deficits. SKIN: No rashes. Results CBC & Chem 7: 11/03/20 18:49 11/03/20 23:43 Labs: Abnormal Lab Results - Last 24 Hours (Table) 11/03/20 11/03/20 11/03/20 Range/Units 18:49 18:49 18:49 RBC 3.76 L (3.80-5.40) m/uL Sodium 132 L (137-145) mmol/L Potassium 6.3 H* (3.5-5.1) mmol/L Chloride 97 L (98-107) mmol/L BUN 35 H (7-17) mg/dL Creatinine 6.11 H (0.52-1.04) mg/dL Glucose 153 H (74-99) mg/dL POC Glucose (mg/dL) (75-99) mg/dL Ferritin 3482.3 H (10.0-291.0) ng/mL AST 50 H (14-36) U/L Lactate Dehydrogenase 1118 H (313-618) U/L C-Reactive Protein 20.0 H (<10.0) mg/L Total Protein 9.7 H (6.3-8.2) g/dL Procalcitonin 0.41 H (0.02-0.09) ng/mL 11/03/20 11/03/20 11/03/20 Range/Units 21:39 21:56 22:09 RBC (3.80-5.40) m/uL Sodium (137-145) mmol/L Potassium (3.5-5.1) mmol/L Chloride (98-107) mmol/L BUN (7-17) mg/dL Creatinine (0.52-1.04) mg/dL Glucose (74-99) mg/dL POC Glucose (mg/dL) 69 L 67 L 69 L (75-99) mg/dL Ferritin (10.0-291.0) ng/mL AST (14-36) U/L Lactate Dehydrogenase (313-618) U/L C-Reactive Protein (<10.0) mg/L Total Protein (6.3-8.2) g/dL Procalcitonin (0.02-0.09) ng/mL 11/04/20 Range/Units 06:49 RBC (3.80-5.40) m/uL Sodium (137-145) mmol/L Potassium (3.5-5.1) mmol/L Chloride (98-107) mmol/L BUN (7-17) mg/dL Creatinine (0.52-1.04) mg/dL Glucose (74-99) mg/dL POC Glucose (mg/dL) 289 H (75-99) mg/dL Ferritin (10.0-291.0) ng/mL AST (14-36) U/L Lactate Dehydrogenase (313-618) U/L C-Reactive Protein (<10.0) mg/L Total Protein (6.3-8.2) g/dL Procalcitonin (0.02-0.09) ng/mL Thrombosis Risk Factor Assmnt - Choose All That Apply Any of the Below Risk Factors Present?: Yes Each Factor Represents 1 point: Obesity (BMI >25), Swollen legs (current) Other Risk Factors: Yes Each Risk Factor Represents 2 Points: Age 61-74 years Other congenital or acquired thrombophilia - If yes, enter type in comment: No Thrombosis Risk Factor Assessment Total Risk Factor Score: 4 Thrombosis Risk Factor Assessment Level: Moderate Risk Assessment and Plan Plan: Shortness of breath: Secondary to pulmonary edema from end-stage renal disease patient will undergo hemodialysis patient also has covid 19. Plan as mentioned in the interval history most probably patient will be discharged today -Hyperkalemia: Secondary to end-stage indices patient will undergo hemodialysis today her potassium repeat one is around 3.8. Patient the will be discharged on low potassium diet instructions regarding this progress on diet will be provided to the patient -Nonsustained VT: Secondary to hyperkalemia -Type 2 diabetes mellitus: Management of blood sugars as mentioned the history -Hypertension -End-stage renal disease secondary to diabetic nephropathy -Diabetic peripheral neuropathy: Continue gabapentin Plan as mentioned in the interval history
--- NOTE | 2020-11-04 12:28 | P.DS ---
Providers Date of admission: 11/03/20 20:21 Attending physician: Mack Martinez Consults: 11/03/20 20:19 Consult Physician Urgent Consulting Provider: Ld Downey Consult Reason/Comments: crf, hyperkalemia Do you want consulting provider notified?: Yes 11/03/20 20:20 Consult Physician Urgent Consulting Provider: Eduar Oliver Consult Reason/Comments: covid, dyspnea Do you want consulting provider notified?: Yes 11/03/20 20:28 Consult Physician Urgent Consulting Provider: Kira Tomlin Consult Reason/Comments: run of v tach, hyperkalemia Do you want consulting provider notified?: Yes Primary care physician: [facility] Course: Refer to my history of present illness for further details Patient Condition at Discharge: Serious Plan - Discharge Summary New Discharge Prescriptions: New Albuterol Inhaler [Ventolin Hfa Inhaler] 2 puff INHALATION RT-QID PRN #1 inhaler PRN Reason: Shortness Of Breath Or Wheezing Continue Gabapentin [Neurontin] 300 mg PO DAILY PRN PRN Reason: NERVE PAIN Aspirin [Adult Low Dose Aspirin EC] 81 mg PO DAILY amLODIPine [Norvasc] 10 mg PO HS Insulin Glargine,Hum.rec.anlog [Basaglar Kwikpen U-100] 21 unit SQ HS Ondansetron HCl [Zofran] 4 mg PO Q8H PRN PRN Reason: Nausea And Vomiting Lidocaine-Prilocaine Cream [Emla Cream 2.5%/2.5%] 1 applic TOPICAL TUTHSA PRN PRN Reason: DIALYIS DAYS INSULIN ASPART (NovoLOG) [NovoLOG (formulary)] See Protocol SQ AC-TID Calcium Acetate [PhosLo] 667 mg PO DAILY PRN PRN Reason: with a snack Calcium Acetate [PhosLo] 1,334 mg PO AC-BID HYDROcodone/APAP 7.5-325MG [[place] 7.5-325] 1 tablet PO BID PRN PRN Reason: Pain carvediloL [Coreg] 3.125 mg PO BID-W/MEALS #30 tab hydrALAZINE HCL [Apresoline] 50 mg PO TID #90 tab Furosemide [Lasix] 80 mg PO BID Zinc Sulfate 220 mg PO BID #20 capsule Famotidine [Pepcid] 20 mg PO BID #30 tablet Ondansetron Odt [Zofran ODT] 4 mg PO Q8HR PRN #30 tab PRN Reason: Nausea And Vomiting methylPREDNISolone Dose Pack [Medrol Dose Pack] See Taper PO DIRECTED Changed INSULIN ASPART (NovoLOG) [NovoLOG (formulary)] 5 unit SQ AC-TID #0 Discharge Medication List Gabapentin [Neurontin] 300 mg PO DAILY PRN 06/27/16 [History] Aspirin [Adult Low Dose Aspirin EC] 81 mg PO DAILY 09/16/16 [History] amLODIPine [Norvasc] 10 mg PO HS 11/29/16 [History] Insulin Glargine,Hum.rec.anlog [Basaglar Kwikpen U-100] 21 unit SQ HS 07/08/18 [History] Lidocaine-Prilocaine Cream [Emla Cream 2.5%/2.5%] 1 applic TOPICAL TUTHSA PRN 05/19/20 [History] Ondansetron HCl [Zofran] 4 mg PO Q8H PRN 05/19/20 [History] Calcium Acetate [PhosLo] 1,334 mg PO AC-BID 07/12/20 [History] Calcium Acetate [PhosLo] 667 mg PO DAILY PRN 07/12/20 [History] INSULIN ASPART (NovoLOG) [NovoLOG (formulary)] See Protocol SQ AC-TID 07/12/20 [History] HYDROcodone/APAP 7.5-325MG [[place] 7.5-325] 1 tablet PO BID PRN 07/13/20 [History] carvediloL [Coreg] 3.125 mg PO BID-W/MEALS #30 tab 07/16/20 [Rx] hydrALAZINE HCL [Apresoline] 50 mg PO TID #90 tab 07/16/20 [Rx] Furosemide [Lasix] 80 mg PO BID 11/01/20 [History] Famotidine [Pepcid] 20 mg PO BID #30 tablet 11/02/20 [Rx] Ondansetron Odt [Zofran ODT] 4 mg PO Q8HR PRN #30 tab 11/02/20 [Rx] Zinc Sulfate 220 mg PO BID #20 capsule 11/02/20 [Rx] methylPREDNISolone Dose Pack [Medrol Dose Pack] See Taper PO DIRECTED 11/03/20 [History] Albuterol Inhaler [Ventolin Hfa Inhaler] 2 puff INHALATION RT-QID PRN #1 inhaler 11/04/20 [Rx] INSULIN ASPART (NovoLOG) [NovoLOG (formulary)] 5 unit SQ AC-TID #0 11/04/20 [Rx] Follow up Appointment(s)/Referral(s): Piedad Ingram III, MD [Primary Care Provider] - 3 Days Activity/Diet/Wound Care/Special Instructions: Renal diet Discharge Disposition: HOME SELF-CARE
[2020-11-04 13:25] LABS: Albumin 4.2 g/dL (3.5-5.0); Calcium 9.1 mg/dL (8.4-10.2); Phosphorus 5.2 mg/dL (2.5-4.5); Potassium 4.3 mmol/L (3.5-5.1); Total Bilirubin 0.7 mg/dL (0.2-1.3); Total Protein 8.9 g/dL (6.3-8.2)
--- NOTE | 2020-11-04 14:02 | P.CNPUL ---
History of Present Illness Consult date: 11/04/20 Requesting physician: aMck Martinez Reason for consult: dyspnea, abnormal CXR/CT (Increased interstitial pulmonary disease.) Chief complaint: Shortness of breath History of present illness: This is a 64-year-old female with history of multiple medical problems including end-stage renal disease, on hemodialysis, type 2 diabetes, diabetic neuropathy, chronic lymphedema, irritable bowel syndrome, patient presented to the ER yesterday 11/03/2020 after just being discharged from the hospital on 11/02/2020. She had tested positive for the lynn virus. On 11/02/2020 she did undergo hemodialysis however only approximately 200 ML's of fluid was able to be removed. She stated she had increasing shortness of breath and came back to the emergency room. Chest x-ray reveals evidence of fluid volume overload. She is scheduled to receive hemodialysis again today. Presently she is seen in consultation on the selective care unit. She is sitting up at the bedside. Awake and alert in no acute distress. Maintaining O2 saturations in the mid 90s on room air. She's afebrile. Sodium 134. Potassium 4.3. Creatinine 7.60. White count 6.4. Hemoglobin 11.6. She remains on dexamethasone, Lovenox, and Pepcid, vitamin supplements. The goals today for hemodialysis on 3 L of ultrafiltration. She is also initiated on hydralazine. Review of Systems REVIEW OF SYSTEMS: CONSTITUTIONAL: Denies any recent significant weight loss or weight gain. EYES: Denies change in vision. EARS, NOSE, MOUTH, THROAT: Denies headaches, denies sore throat. CARDIOVASCULAR: Denies chest pain, palpitations or syncopal episodes. RESPIRATORY: Positive for shortness of breath, cough, congestion no hemoptysis. GASTROINTESTINAL: Denies change in appetite, denies abdominal pain GENITOURINARY: Denies hematuria, denies infections. MUSKULOSKELETAL: Denies pain, denies swelling. INTEGUMENTARY: Denies rash, denies eczema. NEUROLOGICAL: Denies recent memory loss, no recent seizure activity. PSYCHIATRIC: Denies anxiety, denies depression. HEMATOLOGIC/LYMPHATIC: Denies anemia, denies enlarged lymph nodes. Past Medical History Past Medical History: Diabetes Mellitus, Hypertension, Renal Disease Additional Past Medical History / Comment(s): ESRD with hemodialysis t,th, sat, IDDM type II, past DKA, neuropathy bilateral feet/legs and alittle in hands, "fast heart rate"-had cardiac ablation, lymphedema bilateral lower legs/feet, gout R knee, mineral bone disease, IBS, R sided Mustafa's palsey.skin CA on back removed. covid 19 History of Any Multi-Drug Resistant Organisms: None Reported Past Surgical History: Appendectomy, Cardiac Ablation, Section, Cho lecystectomy, Tubal Ligation Additional Past Surgical History / Comment(s): bilateral cataract removal with lens implants, C-sections, bilateral benign breast biopsies, AV graft left arm done 06-23-16 for dialysis, colonoscopy. Past Anesthesia/Blood Transfusion Reactions: Motion Sickness, Postoperative Nausea & Vomiting (PONV) Smoking Status: Never smoker - Past Family History Father Family Medical History: Cancer, Diabetes Mellitus Additional Family Medical History / Comment(s): Father had prostate cancer. Mother Family Medical History: Cancer Additional Family Medical History / Comment(s): Mother had breast cancer. Medications and Allergies Home Medications Medication Instructions Recorded Confirmed Type Gabapentin [Neurontin] 300 mg PO DAILY PRN 06/27/16 11/03/20 History Aspirin [Adult Low Dose Aspirin EC] 81 mg PO DAILY 09/16/16 11/03/20 History amLODIPine [Norvasc] 10 mg PO HS 11/29/16 11/03/20 History Insulin Glargine,Hum.rec.anlog 21 unit SQ HS 07/08/18 11/03/20 History [Basaglar Ayo U-100] Lidocaine-Prilocaine Cream [Emla 1 applic TOPICAL TUTHSA PRN 05/19/20 11/03/20 History Cream 2.5%/2.5%] Ondansetron HCl [Zofran] 4 mg PO Q8H PRN 05/19/20 11/03/20 History Calcium Acetate [PhosLo] 1,334 mg PO AC-BID 07/12/20 11/03/20 History Calcium Acetate [PhosLo] 667 mg PO DAILY PRN 07/12/20 11/03/20 History INSULIN ASPART (NovoLOG) [NovoLOG See Protocol SQ AC-TID 07/12/20 11/03/20 History (formulary)] HYDROcodone/APAP 7.5-325MG [[place] 1 tablet PO BID PRN 07/13/20 11/03/20 History 7.5-325] carvediloL [Coreg] 3.125 mg PO BID-W/MEALS #30 tab 07/16/20 11/03/20 Rx hydrALAZINE HCL [Apresoline] 50 mg PO TID #90 tab 07/16/20 11/03/20 Rx Furosemide [Lasix] 80 mg PO BID 11/01/20 11/03/20 History Famotidine [Pepcid] 20 mg PO BID #30 tablet 11/02/20 11/03/20 Rx Ondansetron Odt [Zofran ODT] 4 mg PO Q8HR PRN #30 tab 11/02/20 11/03/20 Rx Zinc Sulfate 220 mg PO BID #20 capsule 11/02/20 11/03/20 Rx methylPREDNISolone Dose Pack See Taper PO DIRECTED 11/03/20 11/03/20 History [Medrol Dose Pack] Albuterol Inhaler [Ventolin Hfa 2 puff INHALATION RT-QID PRN #1 11/04/20 Rx Inhaler] inhaler INSULIN ASPART (NovoLOG) [NovoLOG 5 unit SQ AC-TID #0 11/04/20 11/03/20 Rx (formulary)] Allergies Allergy/AdvReac Type Severity Reaction Status Date / Time sulfamethoxazole AdvReac Nausea & Verified 11/03/20 19:41 [From Bactrim] Vomiting,dyspnea trimethoprim [From Bactrim] AdvReac Nausea & Verified 11/03/20 19:41 Vomiting,dyspnea Physical Exam Vitals: Vital Signs Temp Pulse Pulse Resp BP BP Pulse Ox 11/04/20 08:00 97.5 F L 64 20 163/73 95 11/04/20 04:00 98.1 F 65 20 192/93 96 11/04/20 02:00 57 L 18 11/04/20 00:30 97.8 F 57 L 18 169/79 96 11/03/20 21:30 98.1 F 60 18 179/81 98 11/03/20 20:39 65 18 183/80 98 11/03/20 18:22 99.5 F 64 28 H 207/84 93 L Intake and Output 11/03/20 11/04/20 11/04/20 22:59 06:59 14:59 Output Total 0 Balance 0 Output: Urine 0 Other: Weight 104.326 kg 97 kg GENERAL EXAM: Alert, active, pleasant 64-year-old female patient, on room air, comfortable in no apparent distress. HEAD: Normocephalic. EYES: Normal reaction of pupils, equal size. NOSE: Clear with pink turbinates. THROAT: No erythema or exudates. NECK: No masses, no JVD. CHEST: No chest wall deformity. LUNGS: Equal air entry with faint crackles in the bilateral posterior bases. CVS: S1 and S2 normal with no audible murmur, regular rhythm. ABDOMEN: No hepatosplenomegaly, normal bowel sounds, no guarding or rigidity. SPINE: No scoliosis or deformity SKIN: No rashes CENTRAL NERVOUS SYSTEM: No focal deficits, tone is normal in all 4 extremities. EXTREMITIES: AV fistula left upper extremity. There is no peripheral edema. No clubbing, no cyanosis. Peripheral pulses are intact. Results - Laboratory Findings CBC and BMP: 11/03/20 18:49 11/04/20 11:15 PT/INR, D-dimer PT 11.4 sec (9.0-12.0) 11/03/20 18:49 INR 1.1 (<1.2) 11/03/20 18:49 Abnormal lab findings: Abnormal Labs 11/03/20 11/03/20 11/03/20 18:49 18:49 18:49 RBC 3.76 L Sodium 132 L Potassium 6.3 H* Chloride 97 L BUN 35 H Creatinine 6.11 H Glucose 153 H POC Glucose (mg/dL) Phosphorus Ferritin 3482.3 H AST 50 H Alkaline Phosphatase Lactate Dehydrogenase 1118 H C-Reactive Protein 20.0 H Total Protein 9.7 H Procalcitonin 0.41 H 11/03/20 11/03/20 11/03/20 21:39 21:56 22:09 RBC Sodium Potassium Chloride BUN Creatinine Glucose POC Glucose (mg/dL) 69 L 67 L 69 L Phosphorus Ferritin AST Alkaline Phosphatase Lactate Dehydrogenase C-Reactive Protein Total Protein Procalcitonin 11/04/20 11/04/20 11/04/20 06:49 11:15 11:54 RBC Sodium 134 L Potassium Chloride 94 L BUN 43 H Creatinine 7.60 H* Glucose 293 H POC Glucose (mg/dL) 289 H 240 H Phosphorus 5.2 H Ferritin AST 41 H Alkaline Phosphatase 130 H Lactate Dehydrogenase C-Reactive Protein Total Protein 8.9 H Procalcitonin - Diagnostic Findings Chest x-ray: image reviewed Assessment and Plan Assessment: 1 Dyspnea secondary to fluid volume overload and end-stage renal disease 2 Recent admission for Coumadin 19 pneumonitis, recovered 3 Type 2 diabetes mellitus 4 Diabetic neuropathy 5 Hypertension 6 Irritable bowel syndrome 7 History of Mustafa's palsy Plan: The patient was seen and evaluated by Dr. Oliver Chest x-ray and labs reviewed Stable from the pulmonary standpoint, on room air Possible discharge after hemodialysis and once cleared medically We will continue to follow and make further recommendations based on her clinical status I, the cosigning physician, performed a history & physical examination of the patient. Lungs sounds with basilar crackles. Maintaining good O2 saturations in the 90s on room air. I discussed the assessment and plan of care with my nurse practitioner, Marie Daniel. I attest to the above consultation as dictated by her. Time with Patient: Greater than 30
[2020-11-04 17:06] LABS: Glucose,Whole Blood 88 mg/dL (75-99)
[2020-11-04 17:15] VITALS: BP 163/82; PULSE 65; RESP 18; TEMP 98.1
[2020-11-04] MEDS: ASCORBIC ACID 500 MG TAB PO SCH ×2 (18:55→18:57)
[2020-11-04] MEDS: ZINC SULFATE 220 MG CAP PO SCH (18:56)
[2020-11-04] MEDS: hydrALAZINE HCL 25 MG TAB PO SCH ×2 (18:56→19:32)
[2020-11-04] MEDS: FUROSEMIDE 80 MG TAB PO SCH (18:56)
[2020-11-04] MEDS: DEXAMETHASONE SOD PHOSPHATE 10 MG/ML 1 ML VIAL IV SCH (19:05)
[2020-11-04] MEDS: CHOLECALCIFEROL 1,000 UNIT TAB PO SCH (19:32)
[2020-11-04] MEDS ORDERED: INSULIN DETEMIR (LEVEMIR) 100 UNIT/ML SYR SQ SCH (21:00)
[2020-11-05] MEDS ORDERED: FAMOTIDINE 20 MG TAB PO SCH (09:00)
== END 2020-11-04 19:36 | disposition home or self-care (01) | DRG 291 ==
LOC: EC 18:18 → 3SCARD 20:21
PROVIDERS: ADMIT Internal Medicine; ATTEND Internal Medicine
PROC: 5A1D70Z Performance of Urinary Filtration, Intermittent, Less than 6 Hours Per Day (ICD-10-PCS; principal; 2020-11-04)
DX: I13.2 Hypertensive heart and chronic kidney disease with heart failure and with stage 5 chronic kidney disease, or end stage renal disease (principal); I50.33 Acute on chronic diastolic (congestive) heart failure; U07.1 COVID-19; J12.82 Pneumonia due to coronavirus disease 2019; N18.6 End stage renal disease; I47.2 Ventricular tachycardia; E11.22 Type 2 diabetes mellitus with diabetic chronic kidney disease; E11.42 Type 2 diabetes mellitus with diabetic polyneuropathy; E87.5 Hyperkalemia; I27.20 Pulmonary hypertension, unspecified; I44.0 Atrioventricular block, first degree; E83.9 Disorder of mineral metabolism, unspecified; K58.9 Irritable bowel syndrome, unspecified; Z79.4 Long term (current) use of insulin; Z79.52 Long term (current) use of systemic steroids; Z79.82 Long term (current) use of aspirin; Z79.899 Other long term (current) drug therapy; Z80.3 Family history of malignant neoplasm of breast; Z80.42 Family history of malignant neoplasm of prostate; Z83.3 Family history of diabetes mellitus; Z85.828 Personal history of other malignant neoplasm of skin; Z96.1 Presence of intraocular lens; Z98.41 Cataract extraction status, right eye; Z98.42 Cataract extraction status, left eye; Z99.2 Dependence on renal dialysis; Z98.51 Tubal ligation status; Z88.2 Allergy status to sulfonamides
CPT/HCPCS: 36415; 71045; 80053; 82728; 83605; 83615; 83735; 83880; 84100; 84132; 84145; 85025; 85610; 85730; 86140; 87040; 90935; 93005; 94640; 96374; 99291

== ENCOUNTER 2020-12-04 11:51 | Emergency (ER) | payer MEDICARE, BC ==
[2020-12-04 11:57] VITALS: BP 180/69; PULSE 79; RESP 18; TEMP 98.2
--- NOTE | 2020-12-04 12:16 | ED ---
Extremity Problem HPI - General Chief complaint: Extremity Problem,Nontraumatic Stated complaint: L Knee Pain, Hx Blood Clots Time Seen by Provider: 12/04/20 11:58 Source: patient, RN notes reviewed Mode of arrival: wheelchair Limitations: no limitations - History of Present Illness Initial comments: This a 65-year-old female presents emergency Department with chief complaint of left knee pain. Patient states started last night she did take 2 [place] spine which has helped. Patient states that she had no recent trauma states that she did fall on the hospital last week. Patient was discharged 9 days ago after having some shortness of breath and was found to have bilateral lower leg DVTs. Patient states that she is on Eliquis currently. Patient states that her left knee feels like she has gout in which she's in the past she noticed some bruising this morning. Denies any pain above or below. There is pain with movement especially weightbearing. Denies chest pain or shortness breath patient did have a CT of her chest which was negative for blood clot. - Related Data Home Medications Medication Instructions Recorded Confirmed Gabapentin [Neurontin] 300 mg PO DAILY PRN 06/27/16 11/03/20 Aspirin [Adult Low Dose Aspirin EC] 81 mg PO DAILY 09/16/16 11/03/20 amLODIPine [Norvasc] 10 mg PO HS 11/29/16 11/03/20 Insulin Glargine,Hum.rec.anlog 21 unit SQ HS 07/08/18 11/03/20 [[place] U-100] Lidocaine-Prilocaine Cream [Emla 1 applic TOPICAL TUTHSA PRN 05/19/20 11/03/20 Cream 2.5%/2.5%] Ondansetron HCl [Zofran] 4 mg PO Q8H PRN 05/19/20 11/03/20 Calcium Acetate [PhosLo] 1,334 mg PO AC-BID 07/12/20 11/03/20 Calcium Acetate [PhosLo] 667 mg PO DAILY PRN 07/12/20 11/03/20 INSULIN ASPART (NovoLOG) [NovoLOG See Protocol SQ AC-TID 07/12/20 11/03/20 (formulary)] HYDROcodone/APAP 7.5-325MG [[place] 1 tablet PO BID PRN 07/13/20 11/03/20 7.5-325] Furosemide [Lasix] 80 mg PO BID 11/01/20 11/03/20 methylPREDNISolone Dose Pack See Taper PO DIRECTED 11/03/20 11/03/20 [Medrol Dose Pack] Previous Rx's Medication Instructions Recorded carvediloL [Coreg] 3.125 mg PO BID-W/MEALS #30 tab 07/16/20 hydrALAZINE HCL [Apresoline] 50 mg PO TID #90 tab 07/16/20 Famotidine [Pepcid] 20 mg PO BID #30 tablet 11/02/20 Ondansetron Odt [Zofran ODT] 4 mg PO Q8HR PRN #30 tab 11/02/20 Zinc Sulfate 220 mg PO BID #20 capsule 11/02/20 INSULIN ASPART (NovoLOG) [NovoLOG 5 unit SQ AC-TID #0 11/04/20 (formulary)] Albuterol Sulfate [Ventolin HFA] 2 puff INHALATION Q6H PRN 30 Days 11/05/20 #1 inhaler Allergies Allergy/AdvReac Type Severity Reaction Status Date / Time sulfamethoxazole AdvReac Nausea & Verified 12/04/20 11:57 [From Bactrim] Vomiting,dyspnea trimethoprim [From Bactrim] AdvReac Nausea & Verified 12/04/20 11:57 Vomiting,dyspnea Review of Systems ROS Statement: Those systems with pertinent positive or pertinent negative responses have been documented in the HPI. ROS Other: All systems not noted in ROS Statement are negative. Past Medical History Past Medical History: Diabetes Mellitus, Deep Vein Thrombosis (DVT), Hypertension, Renal Disease Additional Past Medical History / Comment(s): ESRD with hemodialysis t,th, sat, IDDM type II, past DKA, neuropathy bilateral feet/legs and alittle in hands, "fast heart rate"-had cardiac ablation, lymphedema bilateral lower legs/feet, gout R knee, mineral bone disease, IBS, R sided Mustafa's palsey.skin CA on back removed. covid 19 History of Any Multi-Drug Resistant Organisms: None Reported Past Surgical History: Appendectomy, Cardiac Ablation, Section, Cholecystectomy, Tubal Ligation Additional Past Surgical History / Comment(s): bilateral cataract removal with lens implants, C-sections, bilateral benign breast biopsies, AV graft left arm done 8-26-16 for dialysis, colonoscopy. Past Anesthesia/Blood Transfusion Reactions: Motion Sickness, Postoperative Nausea & Vomiting (PONV) Past Psychological History: No Psychological Hx Reported Smoking Status: Never smoker Past Alcohol Use History: None Reported Past Drug Use History: None Reported - Past Family History Father Family Medical History: Cancer, Diabetes Mellitus Additional Family Medical History / Comment(s): Father had prostate cancer. Mother Family Medical History: Cancer Additional Family Medical History / Comment(s): Mother had breast cancer. General Exam Limitations: no limitations General appearance: alert, in no apparent distress Head exam: Present: atraumatic, normocephalic, normal inspection Eye exam: Present: normal appearance, PERRL, EOMI. Absent: scleral icterus, conjunctival injection, periorbital swelling Respiratory exam: Present: normal lung sounds bilaterally. Absent: respiratory distress, wheezes, rales, rhonchi, stridor Cardiovascular Exam: Present: regular rate, normal rhythm, normal heart sounds. Absent: systolic murmur, diastolic murmur, rubs, gallop, clicks Extremities exam: Present: other (Bilateral lower shunted swelling noted, pedal pulses are equal bilaterally there is tenderness diffusely of the left knee with no erythema no swelling or increased warmth there is equal warmth or lower extremities patient has some bruising noted just inferior to the left knee ) Course Vital Signs 12/04/20 11:54 Temperature 98.2 F Pulse Rate 79 Respiratory 18 Rate Blood Pressure 180/69 O2 Sat by Pulse 100 Oximetry Medical Decision Making - Medical Decision Making X-ray and also been reviewed there is no evidence of DVT, x-ray unremarkable patient does have some bruising a related to pain from blood in the tissue. Patient's neurovascular intact. Patient follow-up with orthopedics if no improvement. Disposition Clinical Impression: Left knee pain Disposition: HOME SELF-CARE Condition: Stable Instructions (If sedation given, give patient instructions): Knee Pain (ED) Additional Instructions: Please return to the Emergency Department if symptoms worsen or any other con cerns. Is patient prescribed a controlled substance at d/c from ED?: No Referrals: Piedad Ingram III, MD [Primary Care Provider] - 1-2 days Lee Alves MD [STAFF PHYSICIAN] - 1-2 days Time of Disposition: 13:13
--- NOTE | 2020-12-04 12:27 | XR ---
Scattered bilateral carpal EXAMINATION TYPE: XR knee complete LT DATE OF EXAM: 12/04/2020 CLINICAL HISTORY: pain TECHNIQUE: Three views of the left knee are obtained. COMPARISON: None. FINDINGS: There is no acute fracture/dislocation. The tri-compartment joint spaces appear within no rmal limits. The overlying soft tissue appears unremarkable. IMPRESSION: There is no acute fracture or dislocation ICD 10 NO FRACTURE, INITIAL EVALUATION
--- NOTE | 2020-12-04 13:00 | US ---
EXAMINATION TYPE: US venous doppler duplex LE LT DATE OF EXAM: 12/04/2020 12:51 PM COMPARISON: CLINICAL HISTORY: pain, recent clot. Patient states having an ultrasound done x 1 week ago at [facility] facility and was told she had blood clot in both legs. On Eliquis. Anterior left knee pain. SIDE PERFORMED: Left TECHNIQUE: The lower extremity deep venous system is examined utilizing real time linear array sonog wesley with graded compression, doppler sonography and color-flow sonography. VESSELS IMAGED: Common Femoral Vein Deep Femoral Vein Greater Saphenous Vein * Femoral Vein Popliteal Vein Small Saphenous Vein * Proximal Calf Veins (* superficial vessels) Left Leg: Negative for DVT IMPRESSION: No evidence for DVT.
[2020-12-04] MEDS ORDERED: HYDROmorphone 1 MG/ML 1 ML SYRINGE IM STA (13:12)
== END 2020-12-04 13:30 | disposition home or self-care (01) ==
LOC: EC 11:51
DX: M25.562 Pain in left knee (principal); R06.02 Shortness of breath; I12.0 Hypertensive chronic kidney disease with stage 5 chronic kidney disease or end stage renal disease; N18.6 End stage renal disease; E11.22 Type 2 diabetes mellitus with diabetic chronic kidney disease; E11.40 Type 2 diabetes mellitus with diabetic neuropathy, unspecified; Z79.4 Long term (current) use of insulin; Z79.899 Other long term (current) drug therapy; Z79.82 Long term (current) use of aspirin; Z99.2 Dependence on renal dialysis; Z88.1 Allergy status to other antibiotic agents; Z88.2 Allergy status to sulfonamides; Z90.49 Acquired absence of other specified parts of digestive tract; Z98.42 Cataract extraction status, left eye; Z98.41 Cataract extraction status, right eye; Z96.1 Presence of intraocular lens; Z85.828 Personal history of other malignant neoplasm of skin; Z80.3 Family history of malignant neoplasm of breast; Z80.42 Family history of malignant neoplasm of prostate
CPT/HCPCS: 73562; 93971; 99284; 96372; J1170

== ENCOUNTER 2020-12-08 14:32 | Inpatient (IN) | payer MEDICARE, BC ==
[2020-12-08] MEDS ORDERED: ALBUTEROL HFA INHALER INHALATION STA (15:12)
[2020-12-08] MEDS ORDERED: ACETAMINOPHEN TAB 500 MG TAB PO PRN (15:12)
[2020-12-08] MEDS ORDERED: ACETAMINOPHEN TAB 500 MG TAB PO STA (15:12)
--- NOTE | 2020-12-08 15:37 | ED ---
General Adult HPI - General Chief complaint: Fever Stated complaint: Fever Time Seen by Provider: 12/08/20 15:05 Source: patient, RN notes reviewed Mode of arrival: wheelchair Limitations: no limitations - History of Present Illness Initial comments: Patient is a pleasant 65-year-old female presenting to the emergency department with fever. Patient was diagnosed with rotavirus just over 1 month ago. Patient has fatigue, decreased appetite, decreased oral intake. Patient has cough and dyspnea. Patient has loss of taste loss of smell. Patient is having nausea vomiting or diarrhea. Patient feels somewhat weak all over. Patient feels chilled and cold. - Related Data Home Medications Medication Instructions Recorded Confirmed Gabapentin [Neurontin] 300 mg PO DAILY PRN 06/27/16 11/03/20 Aspirin [Adult Low Dose Aspirin EC] 81 mg PO DAILY 09/16/16 11/03/20 amLODIPine [Norvasc] 10 mg PO HS 11/29/16 11/03/20 Insulin Glargine,Hum.rec.anlog 21 unit SQ HS 07/08/18 11/03/20 [Vin Rollins U-100] Lidocaine-Prilocaine Cream [Emla 1 applic TOPICAL TUTHSA PRN 05/19/20 11/03/20 Cream 2.5%/2.5%] Ondansetron HCl [Zofran] 4 mg PO Q8H PRN 05/19/20 11/03/20 Calcium Acetate [PhosLo] 1,334 mg PO AC-BID 07/12/20 11/03/20 Calcium Acetate [PhosLo] 667 mg PO DAILY PRN 07/12/20 11/03/20 INSULIN ASPART (NovoLOG) [NovoLOG See Protocol SQ AC-TID 07/12/20 11/03/20 (formulary)] HYDROcodone/APAP 7.5-325MG [[place] 1 tablet PO BID PRN 07/13/20 11/03/20 7.5-325] Furosemide [Lasix] 80 mg PO BID 11/01/20 11/03/20 Apixaban [Eliquis] 5 mg PO BID 12/08/20 12/08/20 INSULIN ASPART (NovoLOG) [NovoLOG 12 unit SQ AC-TID 12/08/20 12/08/20 (formulary)] Zinc 50 mg PO BID 12/08/20 12/08/20 Previous Rx's Medication Instructions Recorded hydrALAZINE HCL [Apresoline] 50 mg PO TID #90 tab 07/16/20 Albuterol Sulfate [Ventolin HFA] 2 puff INHALATION Q6H PRN 30 Days 11/05/20 #1 inhaler Allergies Allergy/AdvReac Type Severity Reaction Status Date / Time sulfamethoxazole AdvReac Nausea & Verified 12/08/20 17:22 [From Bactrim] Vomiting,dyspnea trimethoprim [From Bactrim] AdvReac Nausea & Verified 12/08/20 17:22 Vomiting,dyspnea Review of Systems ROS Statement: Those systems with pertinent positive or pertinent negative responses have been documented in the HPI. ROS Other: All systems not noted in ROS Statement are negative. Constitutional: Reports: fever, chills Eyes: Denies: eye pain ENT: Denies: ear pain Respiratory: Reports: cough, dyspnea Cardiovascular: Denies: chest pain Endocrine: Reports: fatigue Gastrointestinal: Reports: nausea, vomiting, diarrhea. Denies: abdominal pain Genitourinary: Denies: dysuria Musculoskeletal: Denies: back pain Skin: Denies: rash Neurological: Denies: confusion Past Medical History Past Medical History: Diabetes Mellitus, Dialysis, Deep Vein Thrombosis (DVT), Hypertension, Renal Disease Additional Past Medical History / Comment(s): ESRD with hemodialysis t,, sat, IDDM type II, past DKA, neuropathy bilateral feet/legs and alittle in hands, "fast heart rate"-had cardiac ablation, lymphedema bilateral lower legs/feet, gout R knee, mineral bone disease, IBS, R sided Mustafa's palsey.skin CA on back removed. covid 19 in October History of Any Multi-Drug Resistant Organisms: None Reported Past Surgical History: Appendectomy, Cardiac Ablation, Section, Cholecystectomy, Tubal Ligation Additional Past Surgical History / Comment(s): bilateral cataract removal with lens implants, C-sections, bilateral benign breast biopsies, AV graft left arm done 06-23-16 for dialysis, colonoscopy. Past Anesthesia/Blood Transfusion Reactions: Motion Sickness, Postoperative Nausea & Vomiting (PONV) Past Psychological History: No Psychological Hx Reported Smoking Status: Never smoker Past Alcohol Use History: None Reported Past Drug Use History: None Reported - Past Family History Father Family Medical History: Cancer, Diabetes Mellitus Additional Family Medical History / Comment(s): Father had prostate cancer. Mother Family Medical History: Cancer Additional Family Medical History / Comment(s): Mother had breast cancer. General Exam Limitations: no limitations General appearance: alert, in no apparent distress Head exam: Present: atraumatic, normocephalic Eye exam: Present: normal appearance, PERRL ENT exam: Present: mucous membranes dry Neck exam: Present: normal inspection Respiratory exam: Present: normal lung sounds bilaterally Cardiovascular Exam: Present: regular rate, normal rhythm GI/Abdominal exam: Present: soft. Absent: tenderness Extremities exam: Present: pedal edema. Absent: calf tenderness Neurological exam: Present: alert. Absent: motor sensory deficit Psychiatric exam: Present: flat affect Skin exam: Present: normal color Course Vital Signs 12/08/20 12/08/20 12/08/20 14:48 15:49 16:33 Temperature 99.3 F 98.8 F Pulse Rate 93 93 83 Respiratory 18 20 18 Rate Blood Pressure 180/67 176/86 169/71 O2 Sat by Pulse 94 L 95 97 Oximetry EKG Findings - EKG Comments: EKG Findings:: Normal sinus rhythm and 93. CO 178. QRS 72. QT 370. QTc or 69. Normal axis. Normal QRS. No acute ST change. Medical Decision Making - Medical Decision Making Patient reevaluated and updated. Dr. Silva has been paged for admission, covering for Dr. Ingram. Dr. Ludy Chavez and was updated on consult. - Lab Data Result diagrams: 12/08/20 15:29 12/08/20 15:29 Lab Results 12/08/20 12/08/20 12/08/20 Range/Units 15:01 15:29 15:29 WBC 12.8 H (3.8-10.6) k/uL RBC 3.23 L (3.80-5.40) m/uL Hgb 9.6 L D (11.4-16.0) gm/dL Hct 30.4 L (34.0-46.0) % MCV 94.3 (80.0-100.0) fL MCH 29.8 (25.0-35.0) pg MCHC 31.6 (31.0-37.0) g/dL RDW 16.1 H (11.5-15.5) % Plt Count 732 H D (150-450) k/uL MPV 7.0 Neutrophils % 74 % Lymphocytes % 14 % Monocytes % 8 % Eosinophils % 2 % Basophils % 1 % Neutrophils # 9.5 H (1.3-7.7) k/uL Lymphocytes # 1.8 (1.0-4.8) k/uL Monocytes # 1.0 (0-1.0) k/uL Eosinophils # 0.2 (0-0.7) k/uL Basophils # 0.1 (0-0.2) k/uL Hypochromasia Slight Anisocytosis Slight PT 11.6 (9.0-12.0) sec INR 1.1 (<1.2) APTT 31.9 H (22.0-30.0) sec Sodium (137-145) mmol/L Potassium (3.5-5.1) mmol/L Chloride (98-107) mmol/L Carbon Dioxide (22-30) mmol/L Anion Gap mmol/L BUN (7-17) mg/dL Creatinine (0.52-1.04) mg/dL Est GFR (CKD-EPI)AfAm (>60 ml/min/1.73 sqM) Est GFR (CKD-EPI)NonAf (>60 ml/min/1.73 sqM) Glucose (74-99) mg/dL POC Glucose (mg/dL) 82 (75-99) mg/dL POC Glu Traffic Signal Repairer Salma Dacosta Plasma Lactic Acid [place] (0.7-2.0) mmol/L Calcium (8.4-10.2) mg/dL Magnesium (1.6-2.3) mg/dL Total Bilirubin (0.2-1.3) mg/dL AST (14-36) U/L ALT (4-34) U/L Alkaline Phosphatase (38-126) U/L Lactate Dehydrogenase (313-618) U/L C-Reactive Protein (<10.0) mg/L Total Protein (6.3-8.2) g/dL Albumin (3.5-5.0) g/dL 12/08/20 12/08/20 Range/Units 15:29 15:29 WBC (3.8-10.6) k/uL RBC (3.80-5.40) m/uL Hgb (11.4-16.0) gm/dL Hct (34.0-46.0) % MCV (80.0-100.0) fL MCH (25.0-35.0) pg MCHC (31.0-37.0) g/dL RDW (11.5-15.5) % Plt Count (150-450) k/uL MPV Neutrophils % % Lymphocytes % % Monocytes % % Eosinophils % % Basophils % % Neutrophils # (1.3-7.7) k/uL Lymphocytes # (1.0-4.8) k/uL Monocytes # (0-1.0) k/uL Eosinophils # (0-0.7) k/uL Basophils # (0-0.2) k/uL Hypochromasia Anisocytosis PT (9.0-12.0) sec INR (<1.2) APTT (22.0-30.0) sec Sodium 133 L (137-145) mmol/L Potassium 4.2 (3.5-5.1) mmol/L Chloride 91 L (98-107) mmol/L Carbon Dioxide 32 H (22-30) mmol/L Anion Gap 10 mmol/L BUN 11 (7-17) mg/dL Creatinine 3.24 H (0.52-1.04) mg/dL Est GFR (CKD-EPI)AfAm 16 (>60 ml/min/1.73 sqM) Est GFR (CKD-EPI)NonAf 14 (>60 ml/min/1.73 sqM) Glucose 83 (74-99) mg/dL POC Glucose (mg/dL) (75-99) mg/dL POC Glu Traffic Signal Repairer ID Plasma Lactic Acid [place] 1.7 (0.7-2.0) mmol/L Calcium 9.4 (8.4-10.2) mg/dL Magnesium 2.1 (1.6-2.3) mg/dL Total Bilirubin 0.8 (0.2-1.3) mg/dL AST 22 (14-36) U/L ALT 16 (4-34) U/L Alkaline Phosphatase 163 H (38-126) U/L Lactate Dehydrogenase 701 H (313-618) U/L C-Reactive Protein 178.7 H (<10.0) mg/L Total Protein 8.3 H (6.3-8.2) g/dL Albumin 3.8 (3.5-5.0) g/dL - Radiology Data Radiology results: image reviewed (Chest x-ray shows right lower lobe patchy infiltrate) Critical Care Time Critical Care Time: Yes Total Critical Care Time: 31 Disposition Clinical Impression: COVID-19, Pneumonia, Sepsis Disposition: ADMITTED IP TO THIS HOSP Is patient prescribed a controlled substance at d/c from ED?: No Referrals: Piedad Ingram III, MD [Primary Care Provider] - 1-2 days Decision Time: 17:29
[2020-12-08 15:39] LABS: Glucose,Whole Blood 82 mg/dL (75-99)
[2020-12-08 15:48] LABS: Anisocytosis Slight; Basophils # (A) 0.1 k/uL (0-0.2); Basophils % (A) 1 %; Eosinophils # (A) 0.2 k/uL (0-0.7); Eosinophils % (A) 2 %; HCT 30.4 % (34.0-46.0); Hypochromasia Slight; Lymphocytes # (A) 1.8 k/uL (1.0-4.8); Lymphocytes % (A) 14 %; MCH 29.8 pg (25.0-35.0); MCHC 31.6 g/dL (31.0-37.0); MCV 94.3 fL (80.0-100.0); Monocytes % (A) 8 %; Neutrophils # (A) 9.5 k/uL (1.3-7.7); Neutrophils % (A) 74 %; RBC 3.23 m/uL (3.80-5.40); RDW 16.1 % (11.5-15.5); WBC 12.8 k/uL (3.8-10.6)
[2020-12-08 15:58] LABS: HGB 9.6 gm/dL (11.4-16.0)
[2020-12-08 15:59] LABS: Platelet Count 732 k/uL (150-450)
--- NOTE | 2020-12-08 16:02 | XR ---
EXAMINATION TYPE: XR chest 1V portable DATE OF EXAM: 12/08/2020 COMPARISON: Chest x-ray 11/03/2020 HISTORY: Suspected Covid 19 pneumonia TECHNIQUE: Single frontal view of the chest is obtained. FINDINGS: Patchy airspace disease suspected at the right lung base. Cardiac mediastinal silhouette t hought to be stable, heart is enlarged, appearance may be accentuated by rotation. Technique is somew hat limited. There are overlying leads. No evident pneumothorax or pleural effusion. IMPRESSION: Correlate for pneumonia or edema, follow-up is recommended.
[2020-12-08 16:17] LABS: INR 1.1 (<1.2); Partial Thromboplastin Time 31.9 sec (22.0-30.0); Prothrombin Time 11.6 sec (9.0-12.0)
[2020-12-08 16:19] LABS: Albumin 3.8 g/dL (3.5-5.0); Calcium 9.4 mg/dL (8.4-10.2); Magnesium 2.1 mg/dL (1.6-2.3); Potassium 4.2 mmol/L (3.5-5.1); Total Bilirubin 0.8 mg/dL (0.2-1.3); Total Protein 8.3 g/dL (6.3-8.2)
[2020-12-08 16:44] LABS: C Reactive Protein 178.7 mg/L (<10.0)
[2020-12-08] MEDS ORDERED: PNEUMONIA PROTOCOL UTILIZED 1 EACH MISC PO PRN (17:30)
[2020-12-08] MEDS ORDERED: AZITHROMYCIN 500 MG in SODIUM CHLORIDE 0.9% 250 ML IVPB STA (17:30)
[2020-12-08] MEDS ORDERED: PIPERACILLIN-TAZOBACTAM 3.375 GM in SODIUM CHLORIDE 0.9% 100 ML IVPB STA (17:30)
[2020-12-08] MEDS ORDERED: IPRATROPIUM-ALBUTEROL 3 ML NEB INHALATION PRN (17:30)
[2020-12-08] MEDS ORDERED: HYDROcodone/APAP 7.5-325MG 1 EACH TAB PO ONE (18:04)
[2020-12-08] MEDS: ZINC SULFATE 220 MG CAP PO SCH (18:36)
[2020-12-08] MEDS: CHOLECALCIFEROL 25 MCG (1000 IU) TABLET PO SCH (18:36)
[2020-12-08] MEDS: DEXAMETHASONE SOD PHOSPHATE 10 MG/ML 1 ML VIAL IV SCH (18:36)
[2020-12-08] MEDS: SODIUM CHLORIDE 0.9% 1,000 ML IV SCH (18:39)
[2020-12-08] MEDS: ASCORBIC ACID 500 MG TAB PO SCH (22:18)
[2020-12-08] MEDS: APIXABAN 5 MG TAB PO SCH (22:18)
[2020-12-09] MEDS: SODIUM CHLORIDE 0.9% 1,000 ML IV SCH ×3 (02:01→20:50)
[2020-12-09] MEDS: PIPERACILLIN-TAZOBACTAM 3.375 GM in SODIUM CHLORIDE 0.9% 100 ML IVPB SCH ×2 (05:44→18:16)
[2020-12-09 05:52] LABS: Ferritin 2495.1 ng/mL (10.0-291.0)
[2020-12-09 07:00] LABS: Glucose,Whole Blood 467 mg/dL (75-99)
--- NOTE | 2020-12-09 07:35 | XR ---
EXAMINATION TYPE: XR chest 1V DATE OF EXAM: 12/09/2020 COMPARISON: 12/08/2020 INDICATION: Pneumonia TECHNIQUE: Single frontal view of the chest is obtained. FINDINGS: The heart size is mildly prominent. The pulmonary vasculature is slightly prominent. Previous basilar infiltrates are resolving. IMPRESSION: 1. Resolving bibasilar infiltrates. Correlate for resolving congestive heart failure or pneumonia.
[2020-12-09] MEDS: ASCORBIC ACID 500 MG TAB PO SCH ×2 (08:22→20:44)
[2020-12-09] MEDS: CHOLECALCIFEROL 25 MCG (1000 IU) TABLET PO SCH (08:22)
[2020-12-09] MEDS: DEXAMETHASONE SOD PHOSPHATE 10 MG/ML 1 ML VIAL IV SCH (08:22)
[2020-12-09] MEDS: ZINC SULFATE 220 MG CAP PO SCH (08:22)
[2020-12-09] MEDS: APIXABAN 5 MG TAB PO SCH (08:22)
[2020-12-09] MEDS: INSULIN ASPART (NovoLOG) 100 UNIT/ML VIAL SQ SCH ×6 (08:22→20:44)
[2020-12-09] MEDS ORDERED: FUROSEMIDE 80 MG TAB PO PRN (08:55)
[2020-12-09] MEDS ORDERED: CALCIUM ACETATE 667 MG TAB PO PRN (08:55)
[2020-12-09] MEDS ORDERED: GABAPENTIN 300 MG CAP PO PRN (08:55)
[2020-12-09] MEDS ORDERED: LIDOCAINE-PRILOCAINE 2.5-2.5% CREAM 5 GM TUBE TOPICAL PRN (08:55)
[2020-12-09] MEDS ORDERED: ONDANSETRON 4 MG TAB PO PRN (08:55)
[2020-12-09] MEDS ORDERED: ALBUTEROL HFA INHALER INHALATION PRN (08:55)
[2020-12-09] MEDS ORDERED: NON FORMULARY DRUG (Zinc [Zinc] 50 MG Tablet) PO SCH (09:00)
[2020-12-09] MEDS: ASPIRIN 81 MG PO SCH (09:48)
[2020-12-09] MEDS: hydrALAZINE HCL 50 MG TAB PO SCH ×3 (09:49→20:49)
[2020-12-09 11:39] LABS: Anisocytosis Slight; Basophils % (A) 0 %; Eosinophils % (A) 0 %; HGB 8.9 gm/dL (11.4-16.0); Hypochromasia Moderate; Lymphocytes # (A) 0.8 k/uL (1.0-4.8); Lymphocytes % (A) 8 %; MCHC 30.7 g/dL (31.0-37.0); MCV 97.7 fL (80.0-100.0); Macrocytosis Slight; Mean Platelet Volume 7.5; Monocytes # (A) 0.7 k/uL (0-1.0); Monocytes % (A) 7 %; Neutrophils # (A) 8.3 k/uL (1.3-7.7); Neutrophils % (A) 84 %; Platelet Count 640 k/uL (150-450); RBC 2.97 m/uL (3.80-5.40); RDW 16.1 % (11.5-15.5); WBC 9.8 k/uL (3.8-10.6)
[2020-12-09 11:44] LABS: Glucose,Whole Blood 413 mg/dL (75-99)
[2020-12-09 12:28] LABS: African American GFR (CKD) 11 (>60 ml/min/1.73 sqM); Anion Gap 16 mmol/L; Blood Urea Nitrogen 27 mg/dL (7-17); Calcium 9.4 mg/dL (8.4-10.2); Carbon Dioxide 23 mmol/L (22-30); Chloride 90 mmol/L (98-107); Glucose 430 mg/dL (74-99); Non-African American GFR(CKD) 9 (>60 ml/min/1.73 sqM); Potassium 4.5 mmol/L (3.5-5.1); Sodium 129 mmol/L (137-145)
[2020-12-09] MEDS ORDERED: INSULIN ASPART (NovoLOG) 100 UNIT/ML VIAL SQ SCH ×2 (12:30)
--- NOTE | 2020-12-09 15:55 | CONS ---
CONSULTATION REASON FOR CONSULT: End-stage renal disease. HISTORY OF PRESENT ILLNESS: Patient is a 65-year-old female with end-stage renal disease, on hemodialysis on a Sunday, Sunday, Sunday schedule. Patient was admitted to the hospital with a history of fever and chills. She recently had COVID-19 infection with no significant respiratory symptoms about 3 weeks ago, following which she was dialyzed at an outside facility. Patient had been complaining of left knee pain for some time. She was also diagnosed recently with lower extremity DVTs. She denied any cough, nausea, vomiting, fevers, chills or abdominal pain. Currently patient is maintained on antibiotics and there is concern for possible need for arthrocentesis. PAST MEDICAL HISTORY: End-stage renal disease, recent COVID-19 infection, coronary artery disease, CKD mineral bone disorder, anemia of chronic disease, history of neuropathy, gout. PAST SURGICAL HISTORY: Appendectomy, cardiac ablation, , cholecystectomy, tubal ligation, cataract surgeries, breast biopsies, AV graft, left arm, colonoscopy. SOCIAL HISTORY: Negative for smoking, drug abuse or alcohol abuse. MEDICATIONS: Medications prior to admission included insulin, Lasix, Eliquis, zinc, PhosLo, Zofran, aspirin, Norvasc, Neurontin. ALLERGIES: ALLERGIES include BACTRIM, which causes nausea, vomiting and dyspnea. PHYSICAL EXAMINATION: Patient is comfortable, awake, not in any acute distress. Alert, oriented x3. Blood pressure is 169/76, heart rate 75 per minute. She is afebrile. EXAMINATION OF THE HEART: S1 and S2. EXAMINATION OF LUNGS: Bilateral breath sounds are heard. ABDOMEN: Soft, non-tender, obese. Examination of lower extremities shows no evidence of edema. [employer]ENT exam is grossly intact. LABS: Labs show sodium 129, potassium 4.5, BUN 27, serum creatinine 4.62, hemoglobin 8.9 g/dL. ASSESSMENT: 1. End-stage renal disease, on hemodialysis on a Sunday, Sunday, Sunday schedule. 2. Recent COVID-19 infection with repeat test currently negative. 3. Fever on initial admission with concern for possible pneumonia versus infectious arthritis, septic arthritis, left left knee, maintained on antibiotics. 4. Chronic kidney disease mineral bone disorder. 5. Recent lower extremity deep venous thrombosis. PLAN: Continue IV antibiotics. Continue phosphate binders. Discontinue IV fluids. We will plan for hemodialysis in a.m. Further antibiotic recommendations as per ID. MMTIFFANYL / IJN: [id number] /
[2020-12-09 16:45] LABS: Glucose,Whole Blood 153 mg/dL (75-99)
--- NOTE | 2020-12-09 16:49 | P.CNPUL ---
History of Present Illness Consult date: 12/09/20 Reason for consult: other Chief complaint: Fever, chills, recent coronavirus infection History of present illness: This 65-year-old white female patient of Dr. Ingram, with past medical history of diabetes mellitus, hypertension, end-stage renal disease on hemodialysis on Sunday schedule, chronic lymphedema involving bilateral lower extremities, gout, who had recent history of COVID 19 infection on 11/01/2020. She also had recent hospitalization from 11/03/2020 through 11/05/2020 for shortness of breath related to fluid overload, pulmonary edema. She was dialyzed, was feeling better, and was discharged home. On 12/08/2020 patient presented to the hospital for evaluation of fever, and the patient had called her thoracic surgeon office Dr. Rea, and she was also complaining of decreased appetite, weakness, cough and dyspnea. Patient was also having loss of taste and smell. She is also complaining of nausea vomiting and diarrhea. She is having hot and cold spells. Her chest x-ray showed patchy airspace disease at the right lung base, EKG showed normal sinus rhythm. Coronavirus PCR was negative, less than lab data has been reviewed showing white blood cell count of 12.8, hemoglobin of 9.6, sodium of 133, potassium is 4.2, chloride is 91, CO2 is 32, BUN of 11, creatinine of 3.24, ferritin level was 2495, [place] phosphatase was elevated to 163, AST and OT were within normal limits, LDH is 701, improved since October, CRP is 178, pro-calcitonin level was 0.30. Patient was afebrile, hemodynamically she is stable, she was started on empiric antibiotics in the form of azithromycin, and Zosyn, she is receiving IV hydration at 100 ML per hour, nephrology is following, today she seen ambulating to the bathroom, tolerating activity very well, follow-up chest x-ray today shows resolving bibasilar infiltrates. She is on oral Lasix 80 mg twice daily, is on oral anticoagulation. Patient had complaint of swelling in her left knee, and x-ray of the left knee showed no acute fracture or dislocation. Venous Doppler of the left lower extremity revealed no evidence of DVT. Patient does have chronic venous congestion of lower extremities and chronic lower extremity swelling. Left knee does not appear to be more swollen or red or warm to touch. ID service is following Review of Systems All systems: negative Constitutional: Reports weakness, Denies chills, Denies fever Eyes: denies blurred vision, denies pain Ears, nose, mouth and throat: Denies headache, Denies sore throat Cardiovascular: Denies chest pain, Denies shortness of breath Respiratory: Reports dyspnea, Reports home oxygen, Reports respiratory infections, Denies cough Gastrointestinal: Denies abdominal pain, Denies diarrhea, Denies nausea, Denies vomiting Genitourinary: Denies dysuria, Denies hematuria Musculoskeletal: Denies myalgias Integumentary: Denies pruritus, Denies rash Neurological: Denies numbness, Denies weakness Psychiatric: Denies anxiety, Denies depression Endocrine: Denies fatigue, Denies weight change Past Medical History Past Medical History: Diabetes Mellitus, Dialysis, Deep Vein Thrombosis (DVT), Hypertension, Renal Disease Additional Past Medical History / Comment(s): ESRD with hemodialysis t,, sun, IDDM type II, past DKA, neuropathy bilateral feet/legs and alittle in hands, "fast heart rate"-had cardiac ablation, lymphedema bilateral lower legs/feet, gout R knee, mineral bone disease, IBS, R sided Mustafa's palsey.skin CA on back removed. covid 19 in October History of Any Multi-Drug Resistant Organisms: None Reported Past Surgical History: Appendectomy, Cardiac Ablation, Section, Cholecystectomy, Tubal Ligation Additional Past Surgical History / Comment(s): bilateral cataract removal with lens implants, C-sections, bilateral benign breast biopsies, AV graft left arm done 06-23-16 for dialysis, colonoscopy. Past Anesthesia/Blood Transfusion Reactions: Motion Sickness, Postoperative Nausea & Vomiting (PONV) Past Psychological History: No Psychological Hx Reported Additional Psychological History / Comment(s): Pt resides with her spouse. She is independent. She uses a walker. She drives. . Smoking Status: Never smoker Past Alcohol Use History: None Reported Past Drug Use History: None Reported - Past Family History Father Family Medical History: Cancer, Diabetes Mellitus Additional Family Medical History / Comment(s): Father had prostate cancer. Mother Family Medical History: Cancer Additional Family Medical History / Comment(s): Mother had breast cancer. Medications and Allergies Home Medications Medication Instructions Recorded Confirmed Type Gabapentin [Neurontin] 300 mg PO DAILY PRN 06/27/16 12/08/20 History Aspirin [Adult Low Dose Aspirin EC] 81 mg PO DAILY 09/16/16 12/08/20 History amLODIPine [Norvasc] 10 mg PO HS 11/29/16 12/08/20 History Insulin Glargine,Hum.rec.anlog 21 unit SQ HS 07/08/18 12/08/20 History [Basaglar Kwikpen U-100] Lidocaine-Prilocaine Cream [Emla 1 applic TOPICAL TUTHSA PRN 05/19/20 12/08/20 History Cream 2.5%/2.5%] Ondansetron HCl [Zofran] 4 mg PO Q8H PRN 05/19/20 12/08/20 History Calcium Acetate [PhosLo] 1,334 mg PO AC-BID 07/12/20 12/08/20 History Calcium Acetate [PhosLo] 667 mg PO DAILY PRN 07/12/20 12/08/20 History INSULIN ASPART (NovoLOG) [NovoLOG See Protocol SQ AC-TID 07/12/20 12/08/20 History (formulary)] HYDROcodone/APAP 7.5-325MG [[place] 1 tablet PO Q6H PRN 07/13/20 12/08/20 History 7.5-325] hydrALAZINE HCL [Apresoline] 50 mg PO TID #90 tab 07/16/20 12/08/20 Rx Furosemide [Lasix] 80 mg PO BID PRN 11/01/20 12/08/20 History Albuterol Sulfate [Ventolin HFA] 2 puff INHALATION Q6H PRN 30 Days 11/05/20 12/08/20 Rx #1 inhaler Apixaban [Eliquis] 5 mg PO BID 12/08/20 12/08/20 History INSULIN ASPART (NovoLOG) [NovoLOG 12 unit SQ AC-TID 12/08/20 12/08/20 History (formulary)] Zinc 50 mg PO BID 12/08/20 12/08/20 History Allergies Allergy/AdvReac Type Severity Reaction Status Date / Time sulfamethoxazole AdvReac Nausea & Verified 12/08/20 17:22 [From Bactrim] Vomiting,dyspnea trimethoprim [From Bactrim] AdvReac Nausea & Verified 12/08/20 17:22 Vomiting,dyspnea Physical Exam Vitals: Vital Signs Temp Pulse Pulse Resp BP BP Pulse Ox 12/09/20 14:30 97.5 F L 79 17 178/52 98 12/09/20 09:19 97.9 F 99 17 125/56 96 12/09/20 05:42 97.4 F L 90 18 143/69 93 L 12/09/20 02:30 97.5 F L 75 16 156/69 93 L 12/08/20 22:22 97.3 F L 77 17 169/76 93 L 12/08/20 21:04 73 18 131/64 95 12/08/20 20:00 77 17 12/08/20 18:43 83 18 165/78 94 L 12/08/20 16:33 98.8 F 83 18 169/71 97 Intake and Output 12/09/20 12/09/20 12/09/20 06:59 14:59 22:59 Intake Total 1450 Balance 1450 Intake: Intake, IV Titration 1450 Amount Azithromycin 500 mg In 250 Sodium Chloride 0.9% 250 ml @ 250 mls/hr IVPB Q24H [facility] Rx#:[id number] Sodium Chloride 0.9% 1, 1200 000 ml @ 100 mls/hr IV . Q10H [facility] Rx#:[id number] GENERAL EXAM: Alert, very pleasant, 65-year-old white female, walking with a walker, from the bathroom, currently on room air with pulse ox of 98% comfortable in no apparent distress. HEAD: Normocephalic/atraumatic. EYES: Normal reaction of pupils, equal size. Conjunctiva pink, sclera white. NOSE: Clear with pink turbinates. THROAT: No erythema or exudates. NECK: No masses, no JVD, no thyroid enlargement, no adenopathy. CHEST: No chest wall deformity. Symmetrical expansion. LUNGS: Equal air entry with no crackles, wheeze, rhonchi or dullness. CVS: Regular rate and rhythm, normal S1 and S2, no gallops, no murmurs, no rubs ABDOMEN: Soft, nontender. No hepatosplenomegaly, normal bowel sounds, no guarding or rigidity. EXTREMITIES: No clubbing, no edema, no cyanosis, 2+ pulses and upper and lower extremities. MUSCULOSKELETAL: Muscle strength and tone normal. SPINE: No scoliosis or deformity SKIN: No rashes CENTRAL NERVOUS SYSTEM: Alert and oriented -3. No focal deficits, tone is normal in all 4 extremities. PSYCHIATRIC: Alert and oriented -3. Appropriate affect. Intact judgment and insight. Results - Laboratory Findings CBC and BMP: 12/09/20 11:01 12/09/20 11:01 PT/INR, D-dimer PT 11.6 sec (9.0-12.0) 12/08/20 15:29 INR 1.1 (<1.2) 12/08/20 15:29 Abnormal lab findings: Abnormal Labs 12/08/20 12/08/20 12/08/20 15:29 15:29 15:29 WBC 12.8 H RBC 3.23 L Hgb 9.6 L D Hct 30.4 L MCHC RDW 16.1 H Plt Count 732 H D Neutrophils # 9.5 H Lymphocytes # APTT 31.9 H Sodium 133 L Chloride 91 L Carbon Dioxide 32 H BUN Creatinine 3.24 H Glucose POC Glucose (mg/dL) Ferritin 2495.1 H Alkaline Phosphatase 163 H Lactate Dehydrogenase 701 H C-Reactive Protein 178.7 H Total Protein 8.3 H Procalcitonin 12/08/20 12/09/20 12/09/20 15:29 06:56 11:01 WBC RBC 2.97 L Hgb 8.9 L Hct 29.0 L MCHC 30.7 L RDW 16.1 H Plt Count 640 H Neutrophils # 8.3 H Lymphocytes # 0.8 L APTT Sodium Chloride Carbon Dioxide BUN Creatinine Glucose POC Glucose (mg/dL) 467 H Ferritin Alkaline Phosphatase Lactate Dehydrogenase C-Reactive Protein Total Protein Procalcitonin 0.30 H 12/09/20 12/09/20 11:01 11:42 WBC RBC Hgb Hct MCHC RDW Plt Count Neutrophils # Lymphocytes # APTT Sodium 129 L Chloride 90 L Carbon Dioxide BUN 27 H Creatinine 4.62 H Glucose 430 H POC Glucose (mg/dL) 413 H Ferritin Alkaline Phosphatase Lactate Dehydrogenase C-Reactive Protein Total Protein Procalcitonin - Diagnostic Findings Chest x-ray: report reviewed, image reviewed Assessment and Plan Plan: Assessment: #1. Fever, chills, possibly related to septic joint in left knee, possibility of pneumonia is less likely #2. Recent history of bilateral lower extremity DVTs, and patient is on Eliquis, left lower extremity Doppler showed no evidence of DVT #3. Recent history of COVID19 pneumonia on 11/01/2020, recovered. Repeat COVID 19 PCR negative at this time #4. End-stage renal disease on hemodialysis #5. History of coronary artery disease #6. Chronic anemia #7. Diabetes mellitus with history of diabetic neuropathy #8. History of gout #9. No history of smoking #10. Hypertension Plan: Continue antibiotics per ID service recommendations, chest x-ray reviewed, pneumonia is felt to be less likely, no significant pulmonary symptoms, no cough, no chest pain, patient is on room air, she's been afebrile while in the hospital. I performed a history & physical examination of the patient and discussed their management with my nurse practitioner, Maryann Louis. I reviewed the nurse practitioner's note and agree with the documented findings and plan of care. Lung sounds are positive for diminished breath sounds. The findings and the impression was discussed with the patient. I attest to the documentation by the nurse practitioner. Time with Patient: Greater than 30
--- NOTE | 2020-12-09 17:14 | P.HPIM ---
History of Present Illness H&P Date: 12/09/20 Chief Complaint: Fever and chills Patient is a 65-year-old female with a known history of ESRD on hemodialysis Sunday and Sunday for the past 5 years, AV graft, recent covid 19 positive on 11/01/2020 with recovery, recently admitted to the hospital at [facility] and found to have bilateral lower extremity DVTs and was started on Eliquis for anticoagulation, hypertension, diabetes type 2 and bilateral lower extremity chronic venous stasis and lymphedema presents to ER due to complaints of fever and chills with T-max of 10.1. Patient called her dry folder cloth office and was recommended to go to ER. Patient was also complaining of fatigue and decreased appetite and oral intake. Does have cough and shortness of breath on admission. Patient does have loss of taste and smell. She was also complaining of left knee pain. Patient says that she had thrombolysis done in the left upper extremity AV graft. Not sure which pushes it was done. In the ER chest x-ray showed correlate for pneumonia or edema. Follow-up is recommended. EKG showed normal sinus rhythm. Laboratory data showed WBC 12.8, hemoglobin 9.6, RDW 16.1 and platelets 732 MCV 94.3 Sodium 133 potassium 4.2 chloride 91 bicarb 32 BUN 11 and creatinine 3.24 AST 22 ALT 16 alk phos 163 LDH 701 CRP 178 and pro calcitonin 0.3 Covid 19 PCR not detected. Patient was started on antibiotics for possible pneumonia in the ER. Currently on Zosyn and azithromycin. Review of Systems Constitutional: Patient does have fever and chills . Generalized weakness and fatigue.. Abdomen: Patient is complaining of nausea vomiting and diarrhea. No abdominal pain.. Cardiovascular: Patient denies any chest pain . Does have short of breath no palpitations. Respiratory: Patient does have cough without sputum production. Positive shortness of breath Neurologic: Patient denied any numbness or tingling headache. Musculoskeletal: Patient had left knee pain on admission. Skin: Negative Psychiatric: Negative Endocrine: No heat or cold intolerance. No recent weight gain. Genitourinary: No dysuria or hematuria. All other 14 point ROS negative except the above Past Medical History Past Medical History: Diabetes Mellitus, Dialysis, Deep Vein Thrombosis (DVT), Hypertension, Renal Disease Additional Past Medical History / Comment(s): ESRD with hemodialysis t,th, sat, IDDM type II, past DKA, neuropathy bilateral feet/legs and alittle in hands, "fast heart rate"-had cardiac ablation, lymphedema bilateral lower legs/feet, gout R knee, mineral bone disease, IBS, R sided Mustafa's palsey.skin CA on back removed. covid 19 in October History of Any Multi-Drug Resistant Organisms: None Reported Past Surgical History: Appendectomy, Cardiac Ablation, Section, Cholecystectomy, Tubal Ligation Additional Past Surgical History / Comment(s): bilateral cataract removal with lens implants, C-sections, bilateral benign breast biopsies, AV graft left arm done 06-23-16 for dialysis, colonoscopy. Past Anesthesia/Blood Transfusion Reactions: Motion Sickness, Postoperative Nicko sea & Vomiting (PONV) Past Psychological History: No Psychological Hx Reported Additional Psychological History / Comment(s): Pt resides with her spouse. She is independent. She uses a walker. She drives. . Smoking Status: Never smoker Past Alcohol Use History: None Reported Past Drug Use History: None Reported - Past Family History Father Family Medical History: Cancer, Diabetes Mellitus Additional Family Medical History / Comment(s): Father had prostate cancer. Mother Family Medical History: Cancer Additional Family Medical History / Comment(s): Mother had breast cancer. Medications and Allergies Home Medications Medication Instructions Recorded Confirmed Type Gabapentin [Neurontin] 300 mg PO DAILY PRN 06/27/16 12/08/20 History Aspirin [Adult Low Dose Aspirin EC] 81 mg PO DAILY 09/16/16 12/08/20 History amLODIPine [Norvasc] 10 mg PO HS 11/29/16 12/08/20 History Insulin Glargine,Hum.rec.anlog 21 unit SQ HS 07/08/18 12/08/20 History [Basaglar Kwikpen U-100] Lidocaine-Prilocaine Cream [Emla 1 applic TOPICAL TUTHSA PRN 05/19/20 12/08/20 History Cream 2.5%/2.5%] Ondansetron HCl [Zofran] 4 mg PO Q8H PRN 05/19/20 12/08/20 History Calcium Acetate [PhosLo] 1,334 mg PO AC-BID 07/12/20 12/08/20 History Calcium Acetate [PhosLo] 667 mg PO DAILY PRN 07/12/20 12/08/20 History INSULIN ASPART (NovoLOG) [NovoLOG See Protocol SQ AC-TID 07/12/20 12/08/20 History (formulary)] HYDROcodone/APAP 7.5-325MG [[place] 1 tablet PO Q6H PRN 07/13/20 12/08/20 History 7.5-325] hydrALAZINE HCL [Apresoline] 50 mg PO TID #90 tab 07/16/20 12/08/20 Rx Furosemide [Lasix] 80 mg PO BID PRN 11/01/20 12/08/20 History Albuterol Sulfate [Ventolin HFA] 2 puff INHALATION Q6H PRN 30 Days 11/05/20 12/08/20 Rx #1 inhaler Apixaban [Eliquis] 5 mg PO BID 12/08/20 12/08/20 History INSULIN ASPART (NovoLOG) [NovoLOG 12 unit SQ AC-TID 12/08/20 12/08/20 History (formulary)] Zinc 50 mg PO BID 12/08/20 12/08/20 History Allergies Allergy/AdvReac Type Severity Reaction Status Date / Time sulfamethoxazole AdvReac Nausea & Verified 12/08/20 17:22 [From Bactrim] Vomiting,dyspnea trimethoprim [From Bactrim] AdvReac Nausea & Verified 12/08/20 17:22 Vomiting,dyspnea Physical Exam Vitals: Vital Signs Temp Pulse Pulse Resp BP BP Pulse Ox 12/09/20 05:42 97.4 F L 90 18 143/69 93 L 12/09/20 02:30 97.5 F L 75 16 156/69 93 L 12/08/20 22:22 97.3 F L 77 17 169/76 93 L 12/08/20 21:04 73 18 131/64 95 12/08/20 20:00 77 17 12/08/20 18:43 83 18 165/78 94 L 12/08/20 16:33 98.8 F 83 18 169/71 97 12/08/20 15:49 93 20 176/86 95 12/08/20 14:48 99.3 F 93 18 180/67 94 L Intake and Output 12/08/20 12/09/20 12/09/20 22:59 06:59 14:59 Intake Total 1450 Balance 1450 Intake: Intake, IV Titration 1450 Amount Azithromycin 500 mg In 250 Sodium Chloride 0.9% 250 ml @ 250 mls/hr IVPB Q24H [facility] Rx#:[id number] Sodium Chloride 0.9% 1, 1200 000 ml @ 100 mls/hr IV . Q10H [facility] Rx#:[id number] Other: Voiding Method Toilet Weight 104.326 kg PHYSICAL EXAMINATION: Patient is lying in the bed comfortably, no acute distress, awake alert and oriented. Morbidly obese. HEENT: Normocephalic. Neck is supple. Pupils reactive. Nostrils clear. Oral cavity is moist. Ears reveal no drainage. Neck reveals no JVD, carotid bruits, or thyromegaly. CHEST EXAMINATION: Trachea is central. Symmetrical expansion. Lung [place] clear to auscultation and percussion. CARDIAC: Normal S1, S2 with no gallops. No murmurs ABDOMEN: Soft. Bowel sounds normal. No organomegaly. No abdominal bruits. Extremities: Bilateral lower extremity lymphedema with skin discoloration due to venous stasis. No clubbing or cyanosis Neurologically awake, alert, oriented x3 with well-coordinated movements. No focal deficits noted Skin: No rash or skin lesions. Psychiatric: Coperative. Nonsuicidal Musculoskeletal: No joint swelling or deformity. Normal range of motion. Results CBC & Chem 7: 12/09/20 11:01 12/09/20 11:01 Labs: Abnormal Lab Results - Last 24 Hours (Table) 12/08/20 12/08/20 12/08/20 Range/Units 15:29 15:29 15:29 WBC 12.8 H (3.8-10.6) k/uL RBC 3.23 L (3.80-5.40) m/uL Hgb 9.6 L D (11.4-16.0) gm/dL Hct 30.4 L (34.0-46.0) % RDW 16.1 H (11.5-15.5) % Plt Count 732 H D (150-450) k/uL Neutrophils # 9.5 H (1.3-7.7) k/uL APTT 31.9 H (22.0-30.0) sec Sodium 133 L (137-145) mmol/L Chloride 91 L (98-107) mmol/L Carbon Dioxide 32 H (22-30) mmol/L Creatinine 3.24 H (0.52-1.04) mg/dL POC Glucose (mg/dL) (75-99) mg/dL Ferritin 2495.1 H (10.0-291.0) ng/mL Alkaline Phosphatase 163 H (38-126) U/L Lactate Dehydrogenase 701 H (313-618) U/L C-Reactive Protein 178.7 H (<10.0) mg/L Total Protein 8.3 H (6.3-8.2) g/dL Procalcitonin (0.02-0.09) ng/mL 12/08/20 12/09/20 Range/Units 15:29 06:56 WBC (3.8-10.6) k/uL RBC (3.80-5.40) m/uL Hgb (11.4-16.0) gm/dL Hct (34.0-46.0) % RDW (11.5-15.5) % Plt Count (150-450) k/uL Neutrophils # (1.3-7.7) k/uL APTT (22.0-30.0) sec Sodium (137-145) mmol/L Chloride (98-107) mmol/L Carbon Dioxide (22-30) mmol/L Creatinine (0.52-1.04) mg/dL POC Glucose (mg/dL) 467 H (75-99) mg/dL Ferritin (10.0-291.0) ng/mL Alkaline Phosphatase (38-126) U/L Lactate Dehydrogenase (313-618) U/L C-Reactive Protein (<10.0) mg/L Total Protein (6.3-8.2) g/dL Procalcitonin 0.30 H (0.02-0.09) ng/mL Thrombosis Risk Factor Assmnt - DVT/VTE Prophylaxis DVT/VTE Prophylaxis: Pharmacologic Prophylaxis ordered - Choose All That Apply Each Factor Represents 1 point: Obesity (BMI >25), Swollen legs (current) Each Risk Factor Represents 2 Points: Age 61-74 years Each Risk Factor Represents 3 Points: History of DVT/PE Thrombosis Risk Factor Assessment Total Risk Factor Score: 7 Thrombosis Risk Factor Assessment Level: High Risk Assessment and Plan Assessment: Fever and chills with possible left knee septic arthritis versus bacteremia from AV graft. Recent history of bilateral lower extremity DVT currently on anticoagulation with Eliquis Recent history of covid 19 diagnoses on 11/01/2020 with improvement in bilateral pulmonary infiltrates on repeat chest x-ray. On room air currently. Chronic bilateral lower extremity lymphedema and chronic venous stasis changes ESRD on hemodialysis Sunday, left upper extremity AV graft. Morbid obesity with BMI 40.7 History of gout in the left knee Anemia of chronic disease Hypertension Diabetes type 2 insulin-dependent Bilateral lower extremity diabetic peripheral neuropathy History of cardiac ablation History of IBS DVT prophylaxis. Patient is already on Eliquis Plan: Patient will be continued on antibiotics the form of Zosyn and azithromycin. Follow-up blood cultures. Repeat chest x-ray showed improving infiltrates. Left knee pain and swelling is resolved now. No redness noted around the joint. ID and pulmonary was consulted. Nephrology is on board. Continue with home medications and titrate insulin dose. Follow up closely and further recommendations based on the clinical course. Time with Patient: Greater than 30
[2020-12-09] MEDS: CALCIUM ACETATE 667 MG TAB PO SCH (17:29)
[2020-12-09] MEDS ORDERED: AZITHROMYCIN 500 MG in SODIUM CHLORIDE 0.9% 250 ML IVPB SCH (18:00)
[2020-12-09 20:35] LABS: Glucose,Whole Blood 280 mg/dL (75-99)
[2020-12-09] MEDS: amLODIPine 10 MG TAB PO SCH (20:43)
[2020-12-09] MEDS: INSULIN DETEMIR (LEVEMIR) 100 UNIT/ML SYR SQ SCH (20:44)
[2020-12-09] MEDS: APIXABAN 2.5 MG TABLET PO SCH (20:44)
--- NOTE | 2020-12-10 00:33 | CONS ---
CONSULTATION DATE OF SERVICE: 12/09/2020. REASON FOR CONSULTATION AND EVALUATION: Fever, pneumonia. HISTORY OF PRESENT ILLNESS: The patient is a 65-year-old female with a past medical history significant for end-stage renal disease, on hemodialysis with left arm fistula Sunday, , Sunday. The patient recently did have manipulation of her fistula by her vascular surgeon and she did have her dialysis yesterday without any problem. Off dialysis, the patient went for followup to her solar sales advisor, Dr. Oliver. On question today, she was noticed to have a fever for which the patient was sent to the ER for further evaluation. The patient mentioning not feeling well for the last few days. Has been complaining of pain to the left knee area, more of a dull aching, 4-5 out of 10 and no radiation. No history of any trauma. She did have some swelling but no redness to the left knee area. The patient denies having any chest pain or shortness of breath. Minimal cough. No sputum production. Some nausea but no vomiting. No abdominal pain. Did have some diarrhea. With these symptoms, the patient has been evaluated by the ER physician. On arrival to the ER, the patient did have a low-grade fever of 99.3. The patient is currently sating 96% on room air. The patient did have a white count of 12.8 on admission that has subsequently normalized to 9.8 this morning. The patient did have a procalcitonin of 0.30 and CRP 178. Carbajal PCR came back negative. Blood cultures obtained so far pending. The patient did have a chest x-ray done yesterday afternoon which shows correlate for or pneumonia. Repeat x-ray showing resolving right basilar infiltrate. The patient did mention improvement in her symptoms after she was started on Zosyn. REVIEW OF SYSTEMS: Positive points have been mentioned in HPI. Rest of systems are negative. PAST MEDICAL HISTORY: End-stage renal disease on hemodialysis, diabetes mellitus, DVT, hypertension. PAST SURGICAL HISTORY: Appendectomy, cardiac ablation, , cholecystectomy, tubal ligation. SOCIAL HISTORY: No history of smoking, drinking or drug use. FAMILY HISTORY: Father history of diabetes and prostate cancer. Mother history of breast cancer. ALLERGIES: TO SULFAMETHOXAZOLE. MEDICATIONS: Include the patient is currently on Tylenol, [place], Ventolin, Norvasc, Eliquis, vitamin C, aspirin, and erythromycin, PhosLo, Lasix, Neurontin, hydralazine, NovoLog, Levemir, Zofran, Piptazobactam. PHYSICAL EXAMINATION: Her blood pressure 171/80 with a pulse of 81, temperature 97.6. She is 96% on room air. General description: The patient is an elderly female up in the bed in no distress. No tachypnea or accessory muscles of respiration use. HEENT: Examination shows slight pallor. No scleral icterus. Oral mucous membranes dry. Neck: Trachea central. No thyromegaly. Lungs: Unlabored breathing, decreased breath sounds in the bases. No wheeze or crackles. Heart S1, S2. Regular rate and rhythm. ABDOMEN: Soft, no tenderness. No guarding. No rigidity. EXTREMITIES: No edema of the feet. SKIN examination: Left knee area did have some swelling. No redness, no warmth. No tenderness. Left arm AV fistula site with no swelling. No redness and bruising. NEUROLOGICAL: Patient is awake, alert, oriented times three. Mood and affect normal. LABS: Hemoglobin 8.9, white count 9.8. BUN of 27, creatinine 4.62, procalcitonin 0.30. CRP was elevated. Blood culture has been negative so far. DIAGNOSTIC IMPRESSION AND PLAN: Patient admitted to hospital with fever in this patient who did have recent manipulation of the left arm AV fistula site with concern for possible source versus pneumonia. However, she did not have significant respiratory symptoms to account for etiology of her fever. The patient did have elevated procalcitonin and patient reported improvement with Zosyn. PLAN: 1. We will keep the patient on Zosyn while waiting for the culture to finalize. 2. Try to obtain sputum for Gram stain and culture. 3. Obtain x-rays of the left knee and aspirate if evidence of any fluid. 4. We will follow on clinical condition and culture to further adjust medication if needed. Thank you for this consultation. Will follow this patient along with you. MMODL / IJN: [id number] /
[2020-12-10] MEDS: LOPERAMIDE 2 MG CAP PO PRN ×4 (01:38→21:08)
[2020-12-10] MEDS: PIPERACILLIN-TAZOBACTAM 3.375 GM in SODIUM CHLORIDE 0.9% 100 ML IVPB SCH ×2 (05:45→17:38)
[2020-12-10 06:49] LABS: Glucose,Whole Blood 293 mg/dL (75-99)
[2020-12-10] MEDS: CHOLECALCIFEROL 25 MCG (1000 IU) TABLET PO SCH (07:41)
[2020-12-10] MEDS: APIXABAN 2.5 MG TABLET PO SCH ×2 (07:41→20:50)
[2020-12-10] MEDS: CALCIUM ACETATE 667 MG TAB PO SCH ×2 (07:41→17:38)
[2020-12-10] MEDS: ASPIRIN 81 MG PO SCH (07:41)
[2020-12-10] MEDS: ASCORBIC ACID 500 MG TAB PO SCH ×2 (07:41→20:52)
[2020-12-10] MEDS: ZINC SULFATE 220 MG CAP PO SCH (07:41)
[2020-12-10] MEDS: INSULIN ASPART (NovoLOG) 100 UNIT/ML VIAL SQ SCH ×7 (07:42→20:54)
[2020-12-10] MEDS: hydrALAZINE HCL 50 MG TAB PO SCH ×3 (07:42→20:51)
[2020-12-10 11:49] LABS: Glucose,Whole Blood 123 mg/dL (75-99)
--- NOTE | 2020-12-10 12:07 | XR ---
EXAMINATION TYPE: XR knee limited LT DATE OF EXAM: 12/10/2020 CLINICAL HISTORY: pain TECHNIQUE: Three views of the left knee are obtained. COMPARISON: None. FINDINGS: There is no acute fracture/dislocation. The tri-compartment joint spaces appear within no rmal limits. The overlying soft tissue appears unremarkable. IMPRESSION: There is no acute fracture or dislocation ICD 10 NO FRACTURE, INITIAL EVALUATION
--- NOTE | 2020-12-10 13:19 | P.CNOR ---
History of Present Illness - [facility] Consult date: 12/10/20 Consult reason: joint pain History of present illness: Patient is a 65 showed female who presented to [facility] on 12/08/2020 for evaluation of her current medical condition. Patient has a very extensive medical history and multiple hospital visits at multiple hospitals over the last month or 2. Patient has chronic end-stage renal disease and requires dialysis multiple days per week. She was diagnosed with COVID 19 in early October. She has spent time at both [facility] and [facility] due to increasing and worsening shortness of breath. At her most recent visit at [facility] she was diagnosed with bilateral DVTs in lower extremities and started on a anticoagulant. Patient was seeing her tile and marble setter on 12/08/2020 and she had developed shaking chills along with increasing fever. She was advised to report to the hospital for admission and further workup. Multiple lab tests imaging test have been done along with multiple medical specialty consults. During her hospital stay she has mentioned increasing pain in her left knee. With her lab results, there was concern for possible septic arthritis involving the left knee. Our orthopedic team was on consult. Patient was examined today at bedside, she was resting comfortably. She was just finishing up with her dialysis treatment. She is a very pleasant female. She states that her knee started to hurt about a week ago. For a day or 2 she noticed significant pain throughout the knee mainly with ambulation. Since last week it has improved but she still does notice some discomfort. 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 Patient states that during that time at [facility] in later October she did have a fall. The x-rays were done at the hospital at [place] on 12/08/2020 and also today's x-rays revealed no acute fractures or dislocations. Patient is a type II diabetic and on insulin. She has multiple medical comorbidities. She has no other orthopedic complaints, this to include bilateral upper extremity, cervical, thoracic or lumbar pain. She denies any discomfort of the right lower extremity. The loss of bowel or bladder function, no peroneal numbness or tingling. Review of Systems Constitutional: Reports as per HPI Past Medical History Past Medical History: Diabetes Mellitus, Dialysis, Deep Vein Thrombosis (DVT), Hypertension, Renal Disease Additional Past Medical History / Comment(s): ESRD with hemodialysis t,th, sat, IDDM type II, past DKA, neuropathy bilateral feet/legs and alittle in hands, "fast heart rate"-had cardiac ablation, lymphedema bilateral lower legs/feet, gout R knee, mineral bone disease, IBS, R sided Mustafa's palsey.skin CA on back removed. covid 19 in October History of Any Multi-Drug Resistant Organisms: None Reported Past Surgical History: Appendectomy, Cardiac Ablation, Section, Cholecystectomy, Tubal Ligation Additional Past Surgical History / Comment(s): bilateral cataract removal with lens implants, C-sections, bilateral benign breast biopsies, AV graft left arm done 06-23-16 for dialysis, colonoscopy. Past Anesthesia/Blood Transfusion Reactions: Motion Sickness, Postoperative Nausea & Vomiting (PONV) Past Psychological History: No Psychological Hx Reported Additional Psychological History / Comment(s): Pt resides with her spouse. She is independent. She uses a walker. She drives. . Smoking Status: Never smoker Past Alcohol Use History: None Reported Past Drug Use History: None Reported - Past Family History Father Family Medical History: Cancer, Diabetes Mellitus Additional Family Medical History / Comment(s): Father had prostate cancer. Mother Family Medical History: Cancer Additional Family Medical History / Comment(s): Mother had breast cancer. Medications and Allergies Home Medications Medication Instructions Recorded Confirmed Type Gabapentin [Neurontin] 300 mg PO DAILY PRN 06/27/16 12/08/20 History Aspirin [Adult Low Dose Aspirin EC] 81 mg PO DAILY 09/16/16 12/08/20 History amLODIPine [Norvasc] 10 mg PO HS 11/29/16 12/08/20 History Insulin Glargine,Hum.rec.anlog 21 unit SQ 07/08/18 12/08/20 History [Clayagltravis Ibarrapen U-100] Lidocaine-Prilocaine Cream [Emla 1 applic TOPICAL TUTHSA PRN 05/19/20 12/08/20 History Cream 2.5%/2.5%] Ondansetron HCl [Zofran] 4 mg PO Q8H PRN 05/19/20 12/08/20 History Calcium Acetate [PhosLo] 1,334 mg PO AC-BID 07/12/20 12/08/20 History Calcium Acetate [PhosLo] 667 mg PO DAILY PRN 07/12/20 12/08/20 History INSULIN ASPART (NovoLOG) [NovoLOG See Protocol SQ AC-TID 07/12/20 12/08/20 History (formulary)] HYDROcodone/APAP 7.5-325MG [[place] 1 tablet PO Q6H PRN 07/13/20 12/08/20 History 7.5-325] hydrALAZINE HCL [Apresoline] 50 mg PO TID #90 tab 07/16/20 12/08/20 Rx Furosemide [Lasix] 80 mg PO BID PRN 11/01/20 12/08/20 History Albuterol Sulfate [Ventolin HFA] 2 puff INHALATION Q6H PRN 30 Days 11/05/20 12/08/20 Rx #1 inhaler Apixaban [Eliquis] 5 mg PO BID 12/08/20 12/08/20 History INSULIN ASPART (NovoLOG) [NovoLOG 12 unit SQ AC-TID 12/08/20 12/08/20 History (formulary)] Zinc 50 mg PO BID 12/08/20 12/08/20 History Allergies Allergy/AdvReac Type Severity Reaction Status Date / Time sulfamethoxazole AdvReac Nausea & Verified 12/08/20 17:22 [From Bactrim] Vomiting,dyspnea trimethoprim [From Bactrim] AdvReac Nausea & Verified 12/08/20 17:22 Vomiting,dyspnea Physical Examination Left lower extremity: No obvious open lesions or sores are present surrounding the knee. There is obvious edema of the lower extremity with skin discoloration of a chronic venous stasis Mild effusion is present over the knee, there is no areas of fluctuance appreciated She's nontender with palpation along the medial and lateral joint line. She is nontender with palpation of the proximal femur and also the lower leg, including foot and ankle She can straight leg raise with no difficulty, logroll maneuver reproduces no groin pain She can actively extend the knee fully and flex past 90 with no significant pain reproduced Plantar flexion, dorsiflexion, EHL, FHL are intact Her sensory exam to light touch is intact throughout the extremity Refills less than 2 seconds General orthopedic exam: Range of motion is intact in all major muscle groups the bilateral upper extremities She is nontender to palpation throughout the midline and paraspinal region of the cervical, thoracic and lumbar spine No point tenderness of the bilateral upper extremities appreciated Logroll maneuver the right lower extremity reproduces no pain, she is able to straight leg raise. Extension and flexion of the hip, knee, foot and ankle are all intact Lymphedema with chronic venous stasis changes are appreciated in the lower extremity Results - Labs Labs: Abnormal Lab Results - Last 24 Hours (Table) 12/09/20 12/09/20 12/10/20 Range/Units 16:42 20:34 06:45 POC Glucose (mg/dL) 153 H 280 H 293 H (75-99) mg/dL C-Reactive Protein (<10.0) mg/L 12/10/20 12/10/20 Range/Units 11:46 12:06 POC Glucose (mg/dL) 123 H (75-99) mg/dL C-Reactive Protein 86.6 H (<10.0) mg/L Microbiology - Last 24 Hours (Table) 12/08/20 15:50 Blood Culture - Preliminary Blood No Growth after 24 hours 12/08/20 15:56 Blood Culture - Preliminary Blood No Growth after 24 hours H & H 12/08/20 12/09/20 Range/Units 15:29 11:01 Hgb 9.6 L D 8.9 L (11.4-16.0) gm/dL Hct 30.4 L 29.0 L (34.0-46.0) % Coagulation 12/08/20 Range/Units 15:29 INR 1.1 (<1.2) Result Diagrams: 12/09/20 11:01 12/09/20 11:01 - Diagnostic results Knee x-ray: report reviewed, image reviewed Assessment and Plan Assessment: Left knee pain Left knee effusion Concern for left knee septic arthropathy versus gouty arthropathy versus other inflammatory arthropathy Multiple medical comorbidities Plan: I was able to discuss the case, including the physical exam findings and imaging studies my attending Dr. Liao. Due to the physical exam findings and also her lab findings, recommend aspiration of the left knee for further analysis. Discussion of the procedure was had with the patient at bedside, she is in good understanding and would like to proceed. Please see procedure note for further detail Await analysis on fluid of the left knee, aerobic and anaerobic cultures, cell count, Gram stain, fungal cultures and crystals Weight-bear as tolerated of left lower extremity DVT prophylaxis, recommendations per primary medical team Other medical especially recommendations Further recommendations to follow Time with Patient: Less than 30
--- NOTE | 2020-12-10 13:21 | P.PCN ---
Date of Procedure: 12/10/20 Preoperative Diagnosis: Left knee pain, left knee effusion Postoperative Diagnosis: Same Procedure(s) Performed: Left knee aspiration Anesthesia: none Surgeon: Andrade Chen Estimated Blood Loss (ml): 0 Pathology: none sent Condition: stable Disposition: no change Indications for Procedure: Left knee pain, left knee effusion, abnormal lab Description of Procedure: The procedure was discussed with the patient at bedside, this including the risk and benefits of the procedure along with need for further treatment depending on results of labs that will be taken on the fluid analysis from her left knee. Patient was a good understanding and would like to proceed Patient was lying supine, the knee was prepped with 1 chlorhexidine swab and one alcohol swabs. A 20-gauge needle was then used to aspirate 22 mL of straw- colored joint fluid via the suprapatellar approach. After achieving a good aspiration, the needle was then removed. A bandage was then placed. I then placing a 20-gauge needle onto syringe and prepared culture tubes and culture swabs for lab analysis. Proper labs were then ordered and fluid was sent to lab. Await results
[2020-12-10 15:49] LABS: Appearance,BF Cloudy
[2020-12-10 15:50] LABS: Nucleated Cells, Body Fluid 10720 /uL; RBC, Body Fluid 3840 /uL
[2020-12-10 15:51] LABS: Mononuclear WBC,Body Fluid 5 %; Polynuclear WBC,Body Fluid 95 %; Total Cells Counted,Body Fluid 100
--- NOTE | 2020-12-10 15:51 | P.PN ---
Subjective Progress Note Date: 12/10/20 This 65-year-old white female patient of Dr. Ingram, with past medical history of diabetes mellitus, hypertension, end-stage renal disease on hemodialysis on Sunday schedule, chronic lymphedema involving bilateral lower extremities, gout, who had recent history of COVID 19 infection on 11/01/2020. She also had recent hospitalization from 11/03/2020 through 11/05/2020 for shortness of breath related to fluid overload, pulmonary edema. She was dialyzed, was feeling better, and was discharged home. On 12/08/2020 patient presented to the hospital for evaluation of fever, and the patient had called her school program director office Dr. Rea, and she was also complaining of decreased appetite, weakness, cough and dyspnea. Patient was also having loss of taste and smell. She is also complaining of nausea vomiting and diarrhea. She is having hot and cold spells. Her chest x-ray showed patchy airspace disease at the right lung base, EKG showed normal sinus rhythm. Coronavirus PCR was negative, less than lab data has been reviewed showing white blood cell count of 12.8, hemoglobin of 9.6, sodium of 133, potassium is 4.2, chloride is 91, CO2 is 32, BUN of 11, creatinine of 3.24, ferritin level was 2495, [place] phosphatase was elevated to 163, AST and OT were within normal limits, LDH is 701, improved since October, CRP is 178, pro-calcitonin level was 0.30. Patient was afebrile, hemodynamically she is stable, she was started on empiric antibiotics in the form of azithromycin, and Zosyn, she is receiving IV hydration at 100 ML per hour, nephrology is following, today she seen ambulating to the bathroom, tolerating activity very well, follow-up chest x-ray today shows resolving bibasilar infiltrates. She is on oral Lasix 80 mg twice daily, is on oral anticoagulation. Patient had complaint of swelling in her left knee, and x-ray of the left knee showed no acute fracture or dislocation. Venous Doppler of the left lower extremity revealed no evidence of DVT. Patient does have chronic venous congestion of lower extremities and chronic lower extremity swelling. Left knee does not appear to be more swollen or red or warm to touch. ID service is following On today's evaluation of 12/10/2020, I'm seeing the patient for a follow-up. The patient is doing well. No new complaints for now. She was having a bout of fever on outpatient basis and temperature was not documented during this current hospital stay. She did have some swelling in her left knee and orthopedic surgery was involved and any drainage was done. The fluid was not turbid or purulence. The pro-calcitonin level level was 0.3. Her Covid 19 testing came back negative. C-reactive protein is also improving. Her sed rate is also elevated. Currently she is on a broad-spectrum antibiotics including Zosyn and vancomycin. Ubaldo has a stable. Nevertheless, the exact source of infection is not clear and were pending further cultures. ID is on the case. The blood cultures remain negative for now. Discussed the case with orthopedic surgery. Objective - Vital Signs Vital signs: Vital Signs Temp 97.3 F L 12/10/20 14:23 Pulse 72 12/10/20 14:23 Resp 17 12/10/20 14:23 BP 161/71 12/10/20 14:23 Pulse Ox 98 12/10/20 14:23 Intake & Output 12/09/20 12/10/20 12/10/20 18:59 06:59 18:59 Output Total 2500 Balance -2500 Output: Hemodialysis 2500 Other: Voiding Method Toilet Toilet # Voids 3 1 1 - Exam GENERAL EXAM: Alert, very pleasant, 65-year-old white female, walking with a walker, from the bathroom, currently on room air with pulse ox of 98% comfortable in no apparent distress. HEAD: Normocephalic/atraumatic. EYES: Normal reaction of pupils, equal size. Conjunctiva pink, sclera white. NOSE: Clear with pink turbinates. THROAT: No erythema or exudates. NECK: No masses, no JVD, no thyroid enlargement, no adenopathy. CHEST: No chest wall deformity. Symmetrical expansion. LUNGS: Equal air entry with no crackles, wheeze, rhonchi or dullness. CVS: Regular rate and rhythm, normal S1 and S2, no gallops, no murmurs, no rubs ABDOMEN: Soft, nontender. No hepatosplenomegaly, normal bowel sounds, no guarding or rigidity. EXTREMITIES: No clubbing, no edema, no cyanosis, 2+ pulses and upper and lower extremities. MUSCULOSKELETAL: Muscle strength and tone normal. SPINE: No scoliosis or deformity SKIN: No rashes CENTRAL NERVOUS SYSTEM: Alert and oriented -3. No focal deficits, tone is normal in all 4 extremities. PSYCHIATRIC: Alert and oriented -3. Appropriate affect. Intact judgment and insight. - Labs CBC & Chem 7: 12/09/20 11:01 12/09/20 11:01 Labs: Abnormal Lab Results - Last 24 Hours (Table) 12/09/20 12/09/20 12/10/20 Range/Units 16:42 20:34 06:45 ESR (0-20) mm/hr POC Glucose (mg/dL) 153 H 280 H 293 H (75-99) mg/dL C-Reactive Protein (<10.0) mg/L 12/10/20 12/10/20 12/10/20 Range/Units 11:46 12:06 12:06 ESR >140 H (0-20) mm/hr POC Glucose (mg/dL) 123 H (75-99) mg/dL C-Reactive Protein 86.6 H (<10.0) mg/L Microbiology - Last 24 Hours (Table) 12/08/20 15:50 Blood Culture - Preliminary Blood No Growth after 24 hours 12/08/20 15:56 Blood Culture - Preliminary Blood No Growth after 24 hours Assessment and Plan Plan: #1. Fever, chills, possibly related to septic joint in left knee, possibility of pneumonia is less likely, the patient is still being investigated. Her sed rate and CRP levels were both elevated. Left he joint was drained and the fluid analysis still pending for now. Meanwhile the patient is afebrile and she is hemodynamically stable and she is covered with broad-spectrum antibiotics. #2. Recent history of bilateral lower extremity DVTs, and patient is on Eliquis, left lower extremity Doppler showed no evidence of DVT #3. Recent history of COVID19 pneumonia on 11/01/2020, recovered. Repeat COVID 19 PCR negative at this time #4. End-stage renal disease on hemodialysis #5. History of coronary artery disease #6. Chronic anemia #7. Diabetes mellitus with history of diabetic neuropathy #8. History of gout #9. No history of smoking #10. Hypertension Plan Awaiting results from the fluid aspiration from the left knee Monitor fever pattern Continue antibiotics per ID recommendation Pulmonary status is stable and will continue to follow. Furthermore the Covid 19 testing came back negative.
[2020-12-10 16:41] LABS: Glucose,Whole Blood 147 mg/dL (75-99)
--- NOTE | 2020-12-10 16:42 | PN ---
PROGRESS NOTE Patient is seen for followup for end-stage renal disease. She is maintained on a Sunday, Sunday, Sunday schedule. Patient was admitted to the hospital with fever and left knee pain. She recently had COVID-19 infection. Patient has been started on antibiotics and she is currently afebrile. The pain in the left knee has also improved. PHYSICAL EXAMINATION: On examination today, blood pressure was 161/71, heart rate 72 per minute. Patient is afebrile. She is seen on hemodialysis, tolerating her treatment well. Examination of lower extremities shows no evidence of edema. Left knee is not significantly tender. ABDOMEN: Soft, obese, nontender. LABS: Hemoglobin of 8.9 g/dL yesterday. Sodium 129, potassium 4.5 yesterday. ASSESSMENT: 1. End-stage renal disease, on hemodialysis on a Sunday, Sunday, Sunday schedule. 2. Fever, possibly related to left knee septic arthritis. 3. Recent COVID-19 infection and mild pneumonia. 4. Chronic kidney disease mineral bone disorder. 5. Hypertension. PLAN: Hemodialysis today. Patient is tolerating her treatment well. Next treatment will be Sunday12/13/2020. Antibiotics as per ID. Consult Orthopedics for left knee arthrocentesis. MMODL / IJN: [id number] /
[2020-12-10] MEDS: SODIUM CHLORIDE 0.9% 1,000 ML IV SCH ×2 (19:38→20:37)
[2020-12-10 20:26] LABS: Glucose,Whole Blood 183 mg/dL (75-99)
[2020-12-10] MEDS: amLODIPine 10 MG TAB PO SCH (20:51)
[2020-12-10] MEDS: INSULIN DETEMIR (LEVEMIR) 100 UNIT/ML SYR SQ SCH (20:52)
[2020-12-11] MEDS: SODIUM CHLORIDE 0.9% 1,000 ML IV SCH (05:39)
[2020-12-11] MEDS: PIPERACILLIN-TAZOBACTAM 3.375 GM in SODIUM CHLORIDE 0.9% 100 ML IVPB SCH ×2 (05:54→17:26)
[2020-12-11 07:04] LABS: Glucose,Whole Blood 165 mg/dL (75-99)
[2020-12-11] MEDS: APIXABAN 2.5 MG TABLET PO SCH ×2 (07:37→21:11)
[2020-12-11] MEDS: INSULIN ASPART (NovoLOG) 100 UNIT/ML VIAL SQ SCH ×7 (07:38→21:12)
[2020-12-11] MEDS: ASPIRIN 81 MG PO SCH (07:39)
[2020-12-11] MEDS: hydrALAZINE HCL 50 MG TAB PO SCH ×3 (07:39→21:11)
[2020-12-11] MEDS: ZINC SULFATE 220 MG CAP PO SCH (07:39)
[2020-12-11] MEDS: CHOLECALCIFEROL 25 MCG (1000 IU) TABLET PO SCH (07:40)
[2020-12-11] MEDS: ASCORBIC ACID 500 MG TAB PO SCH ×2 (07:40→21:11)
[2020-12-11] MEDS: CALCIUM ACETATE 667 MG TAB PO SCH ×2 (07:40→17:26)
--- NOTE | 2020-12-11 11:05 | P.PN ---
Subjective Patient is seen in follow-up for end-stage renal disease. She is maintained on hemodialysis on Sunday schedule. Tolerated dialysis yesterday with 2.5 L of oxygen. She underwent aspiration of the left knee yesterday. No active complaints at this time. Vital signs are stable. General: The patient appeared well nourished and normally developed. HEENT: Head exam is unremarkable. Neck is without jugular venous distension. LUNGS: Breath sounds decreased. HEART: Rate and Rhythm are regular. ABDOMEN: Soft, nontender. EXTREMITITES: 2+ edema. Objective - Vital Signs Vital signs: Vital Signs Temp 97.6 F 12/11/20 08:00 Pulse 69 12/11/20 08:00 Resp 16 12/11/20 08:00 BP 151/73 12/11/20 08:00 Pulse Ox 99 12/11/20 08:00 Intake & Output 12/10/20 12/11/20 12/11/20 18:59 06:59 18:59 Output Total 2500 Balance -2500 Output: Hemodialysis 2500 Other: Voiding Method Toilet Toilet # Voids 2 3 # Bowel Movements 1 - Labs CBC & Chem 7: 12/09/20 11:01 12/09/20 11:01 Labs: Abnormal Lab Results - Last 24 Hours (Table) 12/10/20 12/10/20 12/10/20 Range/Units 11:46 12:06 12:06 ESR >140 H (0-20) mm/hr POC Glucose (mg/dL) 123 H (75-99) mg/dL C-Reactive Protein 86.6 H (<10.0) mg/L 12/10/20 12/10/20 12/11/20 Range/Units 16:38 20:24 07:02 ESR (0-20) mm/hr POC Glucose (mg/dL) 147 H 183 H 165 H (75-99) mg/dL C-Reactive Protein (<10.0) mg/L Microbiology - Last 24 Hours (Table) 12/10/20 13:05 Gram Stain - Preliminary Synovial Fluid Body Fluid Culture - Preliminary 12/10/20 13:05 Fungal Culture - Preliminary Knee - Left 12/10/20 13:05 Anaerobic Culture - Preliminary Knee - Left 12/08/20 15:50 Blood Culture - Preliminary Blood No Growth after 48 hours 12/08/20 15:56 Blood Culture - Preliminary Blood No Growth after 48 hours Assessment and Plan Plan: Assessment: 1. End-stage renal disease maintained on hemodialysis on Sunday schedule. 2. Possible left knee septic arthritis. Status post aspiration December 10. Orthopedic surgery following. 3. Hypertension with chronic kidney disease. 4. Chronic kidney disease mineral bone disease maintained on PhosLo. 5. Diabetes mellitus. 6. Chronic lower extremity lymphedema. Plan: Hemodialysis on Sunday. Hep-Lock IV fluids. Follow-up cultures.
--- NOTE | 2020-12-11 11:05 | P.PN ---
Subjective Progress Note Date: 12/11/20 Patient seen and examined she is resting comfortably in bed no issues currently pain is controlled Objective - Vital Signs Vital signs: Vital Signs Temp 97.6 F 12/11/20 08:00 Pulse 69 12/11/20 08:00 Resp 16 12/11/20 08:00 BP 151/73 12/11/20 08:00 Pulse Ox 99 12/11/20 08:00 Intake & Output 12/10/20 12/11/20 12/11/20 18:59 06:59 18:59 Output Total 2500 Balance -2500 Output: Hemodialysis 2500 Other: Voiding Method Toilet Toilet # Voids 2 3 # Bowel Movements 1 - Exam Patient is alert and oriented 3 appears well-nourished well-hydrated is in no acute distress. They does not appear septic. On exam the patient has no te nderness to palpation of her thoracic or lumbar spine. There is no edema or ballottement sign. They have good strength in her lower extremities with 5 out of 5 dorsiflexion plantar flexion EHL and FHL bilaterally. Upper extremities show 5/5 strength in all major muscle groups. There is FROM that is painless of the b/l UE and LE in all major joints. They are intact to light touch sensation in L2 to S1 nerve distribution. Patient has palpable dorsalis pedis was posterior tibial pulses. Compartments are soft and compressible. Patient shows a negative Homans, Frazier's, negative Babinski's negative clonus bilaterally. negative straight leg raise bilaterally. No tensioning signs.Cranial nerves II through XII are grossly intact. Overall alignment is well-maintained in the sagittal coronal planes. - Constitutional General appearance: Present: cooperative - Labs CBC & Chem 7: 12/09/20 11:01 12/09/20 11:01 Labs: Abnormal Lab Results - Last 24 Hours (Table) 12/10/20 12/10/20 12/10/20 Range/Units 11:46 12:06 12:06 ESR >140 H (0-20) mm/hr POC Glucose (mg/dL) 123 H (75-99) mg/dL C-Reactive Protein 86.6 H (<10.0) mg/L 12/10/20 12/10/20 12/11/20 Range/Units 16:38 20:24 07:02 ESR (0-20) mm/hr POC Glucose (mg/dL) 147 H 183 H 165 H (75-99) mg/dL C-Reactive Protein (<10.0) mg/L Microbiology - Last 24 Hours (Table) 12/10/20 13:05 Gram Stain - Preliminary Synovial Fluid Body Fluid Culture - Preliminary 12/10/20 13:05 Fungal Culture - Preliminary Knee - Left 12/10/20 13:05 Anaerobic Culture - Preliminary Knee - Left 12/08/20 15:50 Blood Culture - Preliminary Blood No Growth after 48 hours 12/08/20 15:56 Blood Culture - Preliminary Blood No Growth after 48 hours Assessment and Plan Assessment: 65-year-old female with a history of gout question of septic arthritis No septic arthritis on aspiration Plan: Her labs came back for her knee she does not have septic arthritis she has mild arthritic changes Recommend PT pain control anti-inflammatories ice if needed possible gout medications no surgical intervention at this time
[2020-12-11] MEDS: HYDROcodone/APAP 7.5-325MG 1 EACH TAB PO PRN (11:34)
[2020-12-11 12:19] LABS: Glucose,Whole Blood 105 mg/dL (75-99)
[2020-12-11] MEDS ORDERED: KETOROLAC 15 MG/ML 1 ML VIAL IVP STA (12:41)
--- NOTE | 2020-12-11 12:59 | P.PN ---
Subjective Progress Note Date: 12/10/20 HISTORY OF PRESENT ILLNESS This is a 65-year-old female patient treated for fever and pneumonia. She has a significant past medical history of end-stage renal disease on hemodialysis with left arm fistula on Sunday schedule she recently had manipulation of her fistula by her vascular surgeon. The patient states that her headache is better today. She continues to have a cough that is nonproductive. She denies any chest pain. No nausea, vomiting or diarrhea. Patient is afebrile, heart rate 70, blood pressure 161/71, pulse ox 98% on room air. PHYSICAL EXAMINATION Gen: This is a 65-year-old female. Patient is resting and appears to be comfortable. HEENT: Head is atraumatic, normocephalic. Pupils equal, round. Sclerae is anicteric. NECK: Supple. No JVD. No lymphadenopathy. LUNGS: Decreased at the bases. No intercostal retractions. HEART: Regular rate and rhythm. ABDOMEN: Soft. Bowel sounds are present. No masses. No tenderness. EXTREMITIES: No pedal edema. No calf tenderness. NEUROLOGICAL: Patient is awake, alert and oriented x3. ASSESSMENT Fever rule out underlying lying cause AV fistula manipulation as source of infection unlikely Possible gram-negative pneumonia Ruled out septic left knee PLAN Continue Zosyn 3.375 g IV piggyback every 12 hours Monitor blood cultures Obtain sputum culture Further recommendations based on patient's clinical course The above dictated assessment and findings were discussed with Dr. Felton. The impression and plan of care have been directed as dictated. Graciela Rosas nurse practitioner acting as scribe for Dr. Felton. Objective - Vital Signs Vital signs: Vital Signs Temp 97.8 F 12/10/20 07:17 Pulse 74 12/10/20 07:17 Resp 17 12/10/20 07:17 BP 167/74 12/10/20 07:17 Pulse Ox 98 12/10/20 07:17 Intake & Output 12/09/20 12/10/20 12/10/20 18:59 06:59 18:59 Other: Voiding Method Toilet Toilet # Voids 3 1 1 - Labs CBC & Chem 7: 12/09/20 11:01 12/09/20 11:01 Labs: Abnormal Lab Results - Last 24 Hours (Table) 12/09/20 12/09/20 12/10/20 Range/Units 16:42 20:34 06:45 POC Glucose (mg/dL) 153 H 280 H 293 H (75-99) mg/dL C-Reactive Protein (<10.0) mg/L 12/10/20 12/10/20 Range/Units 11:46 12:06 POC Glucose (mg/dL) 123 H (75-99) mg/dL C-Reactive Protein 86.6 H (<10.0) mg/L Microbiology - Last 24 Hours (Table) 12/08/20 15:50 Blood Culture - Preliminary Blood No Growth after 24 hours 12/08/20 15:56 Blood Culture - Preliminary Blood No Growth after 24 hours
--- NOTE | 2020-12-11 13:44 | P.PN ---
Subjective Progress Note Date: 12/11/20 This 65-year-old white female patient of Dr. Ingram, with past medical history of diabetes mellitus, hypertension, end-stage renal disease on hemodialysis on Sunday schedule, chronic lymphedema involving bilateral lower extremities, gout, who had recent history of COVID 19 infection on 11/01/2020. She also had recent hospitalization from 11/03/2020 through 11/05/2020 for shortness of breath related to fluid overload, pulmonary edema. She was dialyzed, was feeling better, and was discharged home. On 12/08/2020 patient presented to the hospital for evaluation of fever, and the patient had called her boilers and pressure vessels inspector office Dr. Rea, and she was also complaining of decreased appetite, weakness, cough and dyspnea. Patient was also having loss of taste and smell. She is also complaining of nausea vomiting and diarrhea. She is having hot and cold spells. Her chest x-ray showed patchy airspace disease at the right lung base, EKG showed normal sinus rhythm. Coronavirus PCR was negative, less than lab data has been reviewed showing white blood cell count of 12.8, hemoglobin of 9.6, sodium of 133, potassium is 4.2, chloride is 91, CO2 is 32, BUN of 11, creatinine of 3.24, ferritin level was 2495, [place] phosphatase was elevated to 163, AST and OT were within normal limits, LDH is 701, improved since October, CRP is 178, pro-calcitonin level was 0.30. Patient was afebrile, hemodynamically she is stable, she was started on empiric antibiotics in the form of azithromycin, and Zosyn, she is receiving IV hydration at 100 ML per hour, nephrology is following, today she seen ambulating to the bathroom, tolerating activity very well, follow-up chest x-ray today shows resolving bibasilar infiltrates. She is on oral Lasix 80 mg twice daily, is on oral anticoagulation. Patient had complaint of swelling in her left knee, and x-ray of the left knee showed no acute fracture or dislocation. Venous Doppler of the left lower extremity revealed no evidence of DVT. Patient does have chronic venous congestion of lower extremities and chronic lower extremity swelling. Left knee does not appear to be more swollen or red or warm to touch. ID service is following On today's evaluation of 12/10/2020, I'm seeing the patient for a follow-up. The patient is doing well. No new complaints for now. She was having a bout of fever on outpatient basis and temperature was not documented during this current hospital stay. She did have some swelling in her left knee and orthopedic surgery was involved and any drainage was done. The fluid was not turbid or purulence. The pro-calcitonin level level was 0.3. Her Covid 19 testing came back negative. C-reactive protein is also improving. Her sed rate is also elevated. Currently she is on a broad-spectrum antibiotics including Zosyn and vancomycin. Ubaldo has a stable. Nevertheless, the exact source of infection is not clear and were pending further cultures. ID is on the case. The blood cultures remain negative for now. Discussed the case with orthopedic surgery. Today's evaluation done is being seen in follow-up on 12/11/2020 patient is still having pain in her knee. The fluid was aspirated. There was a question of septic arthritis. Nevertheless, the tests from the synovitis fluid did not confirm this. She is offered anti-inflammatory medications for now. No other new complaints.. Noted the cultures are negative the patient has had gout in the right knee in the past. Objective - Vital Signs Vital signs: Vital Signs Temp 97.6 F 12/11/20 08:00 Pulse 69 12/11/20 08:00 Resp 16 12/11/20 08:00 BP 151/73 12/11/20 08:00 Pulse Ox 99 12/11/20 08:00 Intake & Output 12/10/20 12/11/20 12/11/20 18:59 06:59 18:59 Output Total 2500 Balance -2500 Output: Hemodialysis 2500 Other: Voiding Method Toilet Toilet # Voids 2 3 # Bowel Movements 1 - Exam GENERAL EXAM: Alert, very pleasant, 65-year-old white female, walking with a walker, from the bathroom, currently on room air with pulse ox of 98% comfortable in no apparent distress. HEAD: Normocephalic/atraumatic. EYES: Normal reaction of pupils, equal size. Conjunctiva pink, sclera white. NOSE: Clear with pink turbinates. THROAT: No erythema or exudates. NECK: No masses, no JVD, no thyroid enlargement, no adenopathy. CHEST: No chest wall deformity. Symmetrical expansion. LUNGS: Equal air entry with no crackles, wheeze, rhonchi or dullness. CVS: Regular rate and rhythm, normal S1 and S2, no gallops, no murmurs, no rubs ABDOMEN: Soft, nontender. No hepatosplenomegaly, normal bowel sounds, no guarding or rigidity. EXTREMITIES: No clubbing, no edema, no cyanosis, 2+ pulses and upper and lower extremities. MUSCULOSKELETAL: Muscle strength and tone normal. SPINE: No scoliosis or deformity SKIN: No rashes CENTRAL NERVOUS SYSTEM: Alert and oriented -3. No focal deficits, tone is normal in all 4 extremities. PSYCHIATRIC: Alert and oriented -3. Appropriate affect. Intact judgment and insight. - Labs CBC & Chem 7: 12/09/20 11:01 12/09/20 11:01 Labs: Abnormal Lab Results - Last 24 Hours (Table) 12/10/20 12/10/20 12/11/20 Range/Units 16:38 20:24 07:02 POC Glucose (mg/dL) 147 H 183 H 165 H (75-99) mg/dL 12/11/20 Range/Units 12:17 POC Glucose (mg/dL) 105 H (75-99) mg/dL Microbiology - Last 24 Hours (Table) 12/10/20 13:05 Gram Stain - Preliminary Synovial Fluid Body Fluid Culture - Preliminary 12/10/20 13:05 Fungal Culture - Preliminary Knee - Left 12/10/20 13:05 Anaerobic Culture - Preliminary Knee - Left 12/08/20 15:50 Blood Culture - Preliminary Blood No Growth after 48 hours 12/08/20 15:56 Blood Culture - Preliminary Blood No Growth after 48 hours Assessment and Plan Plan: #1. Fever, chills, possibly related to septic joint in left knee, possibility of pneumonia is less likely, the patient is still being investigated. Her sed rate and CRP levels were both elevated. Fluid from the left knee + on uri nalysis indicated no evidence of septic arthritis. This could be gout/pseudogout. Cultures are negative thus far. #2. Recent history of bilateral lower extremity DVTs, and patient is on Eliquis, left lower extremity Doppler showed no evidence of DVT #3. Recent history of COVID19 pneumonia on 11/01/2020, recovered. Repeat COVID 19 PCR negative at this time #4. End-stage renal disease on hemodialysis #5. History of coronary artery disease #6. Chronic anemia #7. Diabetes mellitus with history of diabetic neuropathy #8. History of gout #9. No history of smoking #10. Hypertension Plan Add colchicine 0.6 mg on a daily basis Monitor fever pattern, currently afebrile Continue antibiotics per ID recommendation Pulmonary status is stable and we will sign off the case.
[2020-12-11 17:08] LABS: Glucose,Whole Blood 253 mg/dL (75-99)
[2020-12-11 20:13] LABS: Glucose,Whole Blood 224 mg/dL (75-99)
[2020-12-11] MEDS: INSULIN DETEMIR (LEVEMIR) 100 UNIT/ML SYR SQ SCH (21:11)
[2020-12-11] MEDS: amLODIPine 10 MG TAB PO SCH (21:11)
--- NOTE | 2020-12-11 23:43 | PN ---
PROGRESS NOTE DATE OF SERVICE: 12/11/2020. REASON FOR FOLLOWUP: Fever. INTERVAL HISTORY: Patient is currently afebrile. Patient is breathing comfortably. Still complaining of pain to the left knee area. No worsening though. No chest pain, shortness of breath or cough. No abdominal pain or diarrhea. PHYSICAL EXAMINATION: Blood pressure 143/69 with a pulse of 73, temperature 97.6. She is 98% on room air. General description is an elderly female up in the bed in no distress. Respiratory system: Unlabored breathing. Decreased breath sounds in the bases. No wheeze. Heart S1, S2. Regular rate and rhythm. Abdomen soft, no tenderness. Left knee minimal swelling. No redness. No drainage. LABS: Left knee aspirate was mostly with 10,000 white cells neutrophils. Blood culture has been negative. DIAGNOSTIC IMPRESSION AND PLAN: Patient with fever and left knee pain, possible gouty arthritis. The clinical picture is not suggestive of septic arthritis and the aspirate shows only 10,000 WBC. The patient has been started on colchicine. If the culture remains to be negative, antibiotic can be safely discontinued. MMODL / IJN: [id number] /
[2020-12-12] MEDS: PIPERACILLIN-TAZOBACTAM 3.375 GM in SODIUM CHLORIDE 0.9% 100 ML IVPB SCH ×2 (05:58→17:29)
[2020-12-12 07:26] LABS: Glucose,Whole Blood 178 mg/dL (75-99)
[2020-12-12] MEDS: ASCORBIC ACID 500 MG TAB PO SCH ×2 (07:40→20:44)
[2020-12-12] MEDS: CHOLECALCIFEROL 25 MCG (1000 IU) TABLET PO SCH (07:40)
[2020-12-12] MEDS: CALCIUM ACETATE 667 MG TAB PO SCH ×2 (07:40→17:29)
[2020-12-12] MEDS: ZINC SULFATE 220 MG CAP PO SCH (07:40)
[2020-12-12] MEDS: HYDROcodone/APAP 7.5-325MG 1 EACH TAB PO PRN ×2 (07:40→23:17)
[2020-12-12] MEDS: APIXABAN 2.5 MG TABLET PO SCH ×2 (07:40→20:44)
[2020-12-12] MEDS: ASPIRIN 81 MG PO SCH (07:40)
[2020-12-12] MEDS: hydrALAZINE HCL 50 MG TAB PO SCH ×3 (07:40→20:44)
[2020-12-12] MEDS: INSULIN ASPART (NovoLOG) 100 UNIT/ML VIAL SQ SCH ×7 (07:41→20:43)
[2020-12-12] MEDS: FUROSEMIDE 80 MG TAB PO SCH ×2 (08:31→17:30)
--- NOTE | 2020-12-12 09:32 | P.PN ---
Subjective Patient is seen in follow-up for end-stage renal disease. She is maintained on hemodialysis on Sunday schedule. She underwent aspiration of the left knee on December 10. No active complaints at this time. Hemodynamically stable. Vital signs are stable. General: The patient appeared well nourished and normally developed. HEENT: Head exam is unremarkable. Neck is without jugular venous distension. LUNGS: Breath sounds decreased. HEART: Rate and Rhythm are regular. ABDOMEN: Soft, nontender. EXTREMITITES: 2+ edema. Objective - Vital Signs Vital signs: Vital Signs Temp 98.4 F 12/12/20 08:00 Pulse 73 12/12/20 08:00 Resp 16 12/12/20 08:00 BP 154/76 12/12/20 08:00 Pulse Ox 98 12/12/20 08:00 Intake & Output 12/11/20 12/12/20 12/12/20 18:59 06:59 18:59 Other: Voiding Method Toilet # Voids 3 2 # Bowel Movements 0 - Labs CBC & Chem 7: 12/09/20 11:01 12/09/20 11:01 Labs: Abnormal Lab Results - Last 24 Hours (Table) 12/11/20 12/11/20 12/11/20 Range/Units 12:17 17:07 20:12 POC Glucose (mg/dL) 105 H 253 H 224 H (75-99) mg/dL 12/12/20 Range/Units 07:25 POC Glucose (mg/dL) 178 H (75-99) mg/dL Microbiology - Last 24 Hours (Table) 12/08/20 15:50 Blood Culture - Preliminary Blood No Growth after 72 hours 12/08/20 15:56 Blood Culture - Preliminary Blood No Growth after 72 hours 12/10/20 13:05 Gram Stain - Preliminary Synovial Fluid Body Fluid Culture - Preliminary Assessment and Plan Plan: Assessment: 1. End-stage renal disease maintained on hemodialysis on Sunday schedule. 2. Possible left knee septic arthritis. Status post aspiration December 10. Orthopedic surgery following. 3. Hypertension with chronic kidney disease. Stable. 4. Chronic kidney disease mineral bone disease maintained on PhosLo. 5. Diabetes mellitus. 6. Chronic lower extremity lymphedema. Plan: Hemodialysis on Sunday. Follow-up cultures. Maintain oral Lasix.
[2020-12-12 11:53] LABS: Glucose,Whole Blood 199 mg/dL (75-99)
[2020-12-12 16:53] LABS: Glucose,Whole Blood 178 mg/dL (75-99)
[2020-12-12 20:20] LABS: Glucose,Whole Blood 195 mg/dL (75-99)
[2020-12-12] MEDS: INSULIN DETEMIR (LEVEMIR) 100 UNIT/ML SYR SQ SCH (20:43)
[2020-12-12] MEDS: amLODIPine 10 MG TAB PO SCH (20:44)
[2020-12-12] MEDS: COLCHICINE 0.6 MG EACH PO SCH (22:23)
--- NOTE | 2020-12-12 22:42 | PN ---
PROGRESS NOTE DATE OF SERVICE: 12/12/2020 REASON FOR FOLLOWUP: Fever. INTERVAL HISTORY: The patient is currently afebrile. The patient is breathing comfortably. The patient denies any chest pain. No shortness of breath. No cough. No nausea. No abdominal pain. No diarrhea. PHYSICAL EXAMINATION: Blood pressure 135/72 with a pulse of 71, temperature 98. She is 97% on room air. General description: The patient is a middle-aged female up in the chair in no distress. Respiratory system: Unlabored breathing, clear to auscultation anteriorly. Heart S1, S2, regular rate and rhythm. Abdomen soft, no tenderness. Left knee currently with no swelling. No redness. LABS: No new labs have been obtained today. Cultures from the left knee so far negative. DIAGNOSTIC IMPRESSION AND PLAN: Patient admitted to the hospital with subjective fever with no fever recorded in the hospital. Noted to have elevated white count with left knee pain status post aspirate and cultures negative so far. The patient will be started on Colchicine with concern for possible gouty arthritis. With no evidence of any infection, Zosyn will be discontinued and monitor clinical course closely. Continue supportive care. MMODL / IJN: [id number] /
--- NOTE | 2020-12-13 01:49 | P.PN ---
Subjective Progress Note Date: 12/10/20 Principal diagnosis: Fever and chills. Suspected left knee septic arthritis. Patient is a 65-year-old female with a known history of ESRD on hemodialysis Mo sunday and Sunday for the past 5 years, AV graft, recent covid 19 positive on 11/01/2020 with recovery, recently admitted to the hospital at [facility] and found to have bilateral lower extremity DVTs and was started on Eliquis for anticoagulation, hypertension, diabetes type 2 and bi lateral lower extremity chronic venous stasis and lymphedema presents to ER due to complaints of fever and chills with T-max of 10.1. Patient called her test and research reactor operator office and was recommended to go to ER. Patient was also complaining of fatigue and decreased appetite and oral intake. Does have cough and shortness of breath on admission. Patient does have loss of taste and smell. She was also complaining of left knee pain. Patient says that she had thrombolysis done in the left upper extremity AV graft. Not sure which pushes it was done. In the ER chest x-ray showed correlate for pneumonia or edema. Follow-up is recommended. EKG showed normal sinus rhythm. Laboratory data showed WBC 12.8, hemoglobin 9.6, RDW 16.1 and platelets 732 MCV 94.3 Sodium 133 potassium 4.2 chloride 91 bicarb 32 BUN 11 and creatinine 3.24 AST 22 ALT 16 alk phos 163 LDH 701 CRP 178 and pro calcitonin 0.3 Covid 19 PCR not detected. Patient was started on antibiotics for possible pneumonia in the ER. Currently on Zosyn and azithromycin. 12/10/2020 Patient is currently sitting in the chair comfortably. No complaints of chest pain or shortness of breath. Patient has been afebrile. No episodes of fever while in the hospital so far. No dysuria or hematuria. Patient was seen by orthopedic surgery left knee joint aspiration was done and fluid was sent for analysis. Patient remains on antibiotics in the form of Zosyn. ID and pulmonary is following. Source of infection is unclear at this time. Blood cultures have been negative so far. Current medications reviewed. Objective - Vital Signs Vital signs: Vital Signs Temp 97.3 F L 12/10/20 14:23 Pulse 72 12/10/20 14:23 Resp 17 12/10/20 14:23 BP 161/71 12/10/20 14:23 Pulse Ox 98 12/10/20 14:23 Intake & Output 12/09/20 12/10/20 12/10/20 18:59 06:59 18:59 Output Total 2500 Balance -2500 Output: Hemodialysis 2500 Other: Voiding Method Toilet Toilet # Voids 3 1 1 - Exam PHYSICAL EXAMINATION: Patient is lying in the bed comfortably, no acute distress, awake alert and oriented. Morbidly obese. HEENT: Normocephalic. Neck is supple. Pupils reactive. Nostrils clear. Oral cavity is moist. Ears reveal no drainage. Neck reveals no JVD, carotid bruits, or thyromegaly. CHEST EXAMINATION: Trachea is central. Symmetrical expansion. Lung [place] clear to auscultation and percussion. CARDIAC: Normal S1, S2 with no gallops. No murmurs ABDOMEN: Soft. Bowel sounds normal. No organomegaly. No abdominal bruits. Extremities: Bilateral lower extremity lymphedema with skin discoloration due to venous stasis. No clubbing or cyanosis Neurologically awake, alert, oriented x3 with well-coordinated movements. No focal deficits noted Skin: No rash or skin lesions. Psychiatric: Coperative. Nonsuicidal Musculoskeletal: No joint swelling or deformity. Normal range of motion. - Labs CBC & Chem 7: 12/09/20 11:01 12/09/20 11:01 Labs: Abnormal Lab Results - Last 24 Hours (Table) 12/09/20 12/09/20 12/10/20 Range/Units 16:42 20:34 06:45 ESR (0-20) mm/hr POC Glucose (mg/dL) 153 H 280 H 293 H (75-99) mg/dL C-Reactive Protein (<10.0) mg/L 12/10/20 12/10/20 12/10/20 Range/Units 11:46 12:06 12:06 ESR >140 H (0-20) mm/hr POC Glucose (mg/dL) 123 H (75-99) mg/dL C-Reactive Protein 86.6 H (<10.0) mg/L Microbiology - Last 24 Hours (Table) 12/08/20 15:50 Blood Culture - Preliminary Blood No Growth after 24 hours 12/08/20 15:56 Blood Culture - Preliminary Blood No Growth after 24 hours Assessment and Plan Assessment: Fever and chills with suspected left knee septic arthritis vs gout. Recent history of bilateral lower extremity DVT currently on anticoagulation w gisela Deal Recent history of covid 19 diagnoses on 11/01/2020 with improvement in bilateral pulmonary infiltrates on repeat chest x-ray. On room air currently. Chronic bilateral lower extremity lymphedema and chronic venous stasis changes ESRD on hemodialysis Sunday, left upper extremity AV graft. Morbid obesity with BMI 40.7 History of gout in the left knee Anemia of chronic disease Hypertension Diabetes type 2 insulin-dependent Bilateral lower extremity diabetic peripheral neuropathy History of cardiac ablation History of IBS DVT prophylaxis. Patient is already on Eliquis Plan: Patient will be continued on antibiotics the form of Zosyn and azithromycin. Follow-up blood cultures. Repeat chest x-ray showed improving infiltrates. Left knee pain and swelling is resolved now. No redness noted around the joint. ID and pulmonary is followingd. Nephrology is on board. Status post left knee arthrocentesis Continue with home medications and titrate insulin dose. Follow up closely and further recommendations based on the clinical course. Time with Patient: Greater than 30
--- NOTE | 2020-12-13 01:51 | P.PN ---
Subjective Progress Note Date: 12/11/20 Principal diagnosis: Fever and chills. Suspected left knee septic arthritis. Patient is a 65-year-old female with a known history of ESRD on hemodialysis [place] sunday and Sunday for the past 5 years, AV graft, recent covid 19 positive on 11/01/2020 with recovery, recently admitted to the hospital at [facility] and found to have bilateral lower extremity DVTs and was started on Eliquis for anticoagulation, hypertension, diabetes type 2 and bi lateral lower extremity chronic venous stasis and lymphedema presents to ER due to complaints of fever and chills with T-max of 10.1. Patient called her site project manager office and was recommended to go to ER. Patient was also complaining of fatigue and decreased appetite and oral intake. Does have cough and shortness of breath on admission. Patient does have loss of taste and smell. She was also complaining of left knee pain. Patient says that she had thrombolysis done in the left upper extremity AV graft. Not sure which pushes it was done. In the ER chest x-ray showed correlate for pneumonia or edema. Follow-up is recommended. EKG showed normal sinus rhythm. Laboratory data showed WBC 12.8, hemoglobin 9.6, RDW 16.1 and platelets 732 MCV 94.3 Sodium 133 potassium 4.2 chloride 91 bicarb 32 BUN 11 and creatinine 3.24 AST 22 ALT 16 alk phos 163 LDH 701 CRP 178 and pro calcitonin 0.3 Covid 19 PCR not detected. Patient was started on antibiotics for possible pneumonia in the ER. Currently on Zosyn and azithromycin. 12/10/2020 Patient is currently sitting in the chair comfortably. No complaints of chest pain or shortness of breath. Patient has been afebrile. No episodes of fever while in the hospital so far. No dysuria or hematuria. Patient was seen by orthopedic surgery left knee joint aspiration was done and fluid was sent for analysis. Patient remains on antibiotics in the form of Zosyn. ID and pulmonary is following. Source of infection is unclear at this time. Blood cultures have been negative so far. 12/11/2020 Patient is currently sitting in the chair. Complains of pain at the aspiration site of left knee. Patient states that she is unable to flex her knee completely. Otherwise patient is afebrile. Synovial fluid analysis showed no evidence of infection. Fluid culture and crystals pending at this time. Blood cultures have been negative so far. Patient is afebrile. No cough or sputum production. Saturating well on room air. No headache or di zziness or lightheadedness. No chest pain or shortness breath. Current medications reviewed. Objective - Vital Signs Vital signs: Vital Signs Temp 97.6 F 12/11/20 19:10 Pulse 73 12/11/20 19:10 Resp 20 12/11/20 19:10 BP 143/69 12/11/20 19:10 Pulse Ox 98 12/11/20 19:10 Intake & Output 12/11/20 12/11/20 12/12/20 06:59 18:59 06:59 Other: Voiding Method Toilet # Voids 3 3 - Exam PHYSICAL EXAMINATION: Patient is lying in the bed comfortably, no acute distress, awake alert and oriented. Morbidly obese. HEENT: Normocephalic. Neck is supple. Pupils reactive. Nostrils clear. Oral cavity is moist. Ears reveal no drainage. Neck reveals no JVD, carotid bruits, or thyromegaly. CHEST EXAMINATION: Trachea is central. Symmetrical expansion. Lung [place] clear to auscultation and percussion. CARDIAC: Normal S1, S2 with no gallops. No murmurs ABDOMEN: Soft. Bowel sounds normal. No organomegaly. No abdominal bruits. Extremities: Bilateral lower extremity lymphedema with skin discoloration due to venous stasis. No clubbing or cyanosis Neurologically awake, alert, oriented x3 with well-coordinated movements. No focal deficits noted Skin: No rash or skin lesions. Psychiatric: Coperative. Nonsuicidal Musculoskeletal: No joint swelling or deformity. Normal range of motion. - Labs CBC & Chem 7: 12/09/20 11:01 12/09/20 11:01 Labs: Abnormal Lab Results - Last 24 Hours (Table) 12/11/20 12/11/20 12/11/20 Range/Units 07:02 12:17 17:07 POC Glucose (mg/dL) 165 H 105 H 253 H (75-99) mg/dL 12/11/20 Range/Units 20:12 POC Glucose (mg/dL) 224 H (75-99) mg/dL Microbiology - Last 24 Hours (Table) 02/10/21 15:50 Blood Culture - Preliminary Blood No Growth after 72 hours 12/08/20 15:56 Blood Culture - Preliminary Blood No Growth after 72 hours 12/10/20 13:05 Gram Stain - Preliminary Synovial Fluid Body Fluid Culture - Preliminary 12/10/20 13:05 Fungal Culture - Preliminary Knee - Left 12/10/20 13:05 Anaerobic Culture - Preliminary Knee - Left Assessment and Plan Assessment: Fever and chills with suspected left knee septic arthritis vs gout. Recent history of bilateral lower extremity DVT currently on anticoagulation with Eliquis Recent history of covid 19 diagnoses on 11/01/2020 with improvement in bilateral pulmonary infiltrates on repeat chest x-ray. On room air currently. Chronic bilateral lower extremity lymphedema and chronic venous stasis changes ESRD on hemodialysis Sunday, left upper extremity AV graft. Morbid obesity with BMI 40.7 History of gout in the left knee Anemia of chronic disease Hypertension Diabetes type 2 insulin-dependent Bilateral lower extremity diabetic peripheral neuropathy History of cardiac ablation History of IBS DVT prophylaxis. Patient is already on Eliquis Plan: Patient will be continued on antibiotics the form of Zosyn. Follow-up blood cultures. Repeat chest x-ray showed improving infiltrates. Left knee pain and swelling is resolved now. No redness noted around the joint. ID and pulmonary is followingd. Nephrology is on board. Status post left knee arthrocentesis Continue with home medications and titrate insulin dose. Follow up closely and further recommendations based on the clinical course. Time with Patient: Greater than 30
--- NOTE | 2020-12-13 01:53 | P.PN ---
Subjective Progress Note Date: 12/12/20 Principal diagnosis: Fever and chills. Suspected left knee septic arthritis. Patient is a 65-year-old female with a known history of ESRD on hemodialysis Mo sunday and Sunday for the past 5 years, AV graft, recent covid 19 positive on 11/01/2020 with recovery, recently admitted to the hospital at [facility] and found to have bilateral lower extremity DVTs and was started on Eliquis for anticoagulation, hypertension, diabetes type 2 and bi lateral lower extremity chronic venous stasis and lymphedema presents to ER due to complaints of fever and chills with T-max of 10.1. Patient called her inter fold roll cutter office and was recommended to go to ER. Patient was also complaining of fatigue and decreased appetite and oral intake. Does have cough and shortness of breath on admission. Patient does have loss of taste and smell. She was also complaining of left knee pain. Patient says that she had thrombolysis done in the left upper extremity AV graft. Not sure which pushes it was done. In the ER chest x-ray showed correlate for pneumonia or edema. Follow-up is recommended. EKG showed normal sinus rhythm. Laboratory data showed WBC 12.8, hemoglobin 9.6, RDW 16.1 and platelets 732 MCV 94.3 Sodium 133 potassium 4.2 chloride 91 bicarb 32 BUN 11 and creatinine 3.24 AST 22 ALT 16 alk phos 163 LDH 701 CRP 178 and pro calcitonin 0.3 Covid 19 PCR not detected. Patient was started on antibiotics for possible pneumonia in the ER. Currently on Zosyn and azithromycin. 12/10/2020 Patient is currently sitting in the chair comfortably. No complaints of chest pain or shortness of breath. Patient has been afebrile. No episodes of fever while in the hospital so far. No dysuria or hematuria. Patient was seen by orthopedic surgery left knee joint aspiration was done and fluid was sent for analysis. Patient remains on antibiotics in the form of Zosyn. ID and pulmonary is following. Source of infection is unclear at this time. Blood cultures have been negative so far. 12/11/2020 Patient is currently sitting in the chair. Complains of pain at the aspiration site of left knee. Patient states that she is unable to flex her knee completely. Otherwise patient is afebrile. Synovial fluid analysis showed no evidence of infection. Fluid culture and crystals pending at this time. Blood cultures have been negative so far. Patient is afebrile. No cough or sputum production. Saturating well on room air. No headache or di zziness or lightheadedness. No chest pain or shortness breath. 12/12/2020 patient states that her left knee pain is better today. Afebrile. No nausea vomiting or abdominal pain. Fluid culture and analysis is pending at this time. Blood cultures have been negative so far. Patient has been afebrile while in the hospital. Orthopedic surgery is following. Patient will receive a dose of Toradol yesterday. patient is scheduled for hemodialysis tomorrow. ID is on board. Patient was initially admitted to hospital due to fever and chills. No septic focus is noted so far. Current medications reviewed. Objective - Vital Signs Vital signs: Vital Signs Temp 98.5 F 12/12/20 14:00 Pulse 72 12/12/20 14:00 Resp 16 12/12/20 14:00 BP 157/69 12/12/20 14:00 Pulse Ox 98 12/12/20 14:00 Intake & Output 12/11/20 12/12/20 12/12/20 18:59 06:59 18:59 Other: Voiding Method Toilet # Voids 3 2 # Bowel Movements 0 - Exam PHYSICAL EXAMINATION: Patient is lying in the bed comfortably, no acute distress, awake alert and oriented. Morbidly obese. HEENT: Normocephalic. Neck is supple. Pupils reactive. Nostrils clear. Oral cavity is moist. Ears reveal no drainage. Neck reveals no JVD, carotid bruits, or thyromegaly. CHEST EXAMINATION: Trachea is central. Symmetrical expansion. Lung [place] clear to auscultation and percussion. CARDIAC: Normal S1, S2 with no gallops. No murmurs ABDOMEN: Soft. Bowel sounds normal. No organomegaly. No abdominal bruits. Extremities: Bilateral lower extremity lymphedema with skin discoloration due to venous stasis. No clubbing or cyanosis Neurologically awake, alert, oriented x3 with well-coordinated movements. No focal deficits noted Skin: No rash or skin lesions. Psychiatric: Coperative. Nonsuicidal Musculoskeletal: No joint swelling or deformity. Normal range of motion. - Labs CBC & Chem 7: 12/09/20 11:01 12/09/20 11:01 Labs: Abnormal Lab Results - Last 24 Hours (Table) 12/11/20 12/12/20 12/12/20 Range/Units 20:12 07:25 11:52 POC Glucose (mg/dL) 224 H 178 H 199 H (75-99) mg/dL 12/12/20 Range/Units 16:51 POC Glucose (mg/dL) 178 H (75-99) mg/dL Microbiology - Last 24 Hours (Table) 12/08/20 15:50 Blood Culture - Preliminary Blood No Growth after 72 hours 12/08/20 15:56 Blood Culture - Preliminary Blood No Growth after 72 hours 12/10/20 13:05 Gram Stain - Preliminary Synovial Fluid Body Fluid Culture - Preliminary Assessment and Plan Assessment: Fever and chills with suspected left knee septic arthritis vs gout. Recent history of bilateral lower extremity DVT currently on anticoagulation wit h Eliquis Recent history of covid 19 diagnoses on 11/01/2020 with improvement in bilateral pulmonary infiltrates on repeat chest x-ray. On room air currently. Chronic bilateral lower extremity lymphedema and chronic venous stasis changes ESRD on hemodialysis Sunday, left upper extremity AV graft. Morbid obesity with BMI 40.7 History of gout in the left knee Anemia of chronic disease Hypertension Diabetes type 2 insulin-dependent Bilateral lower extremity diabetic peripheral neuropathy History of cardiac ablation History of IBS DVT prophylaxis. Patient is already on Eliquis Plan: Patient will be continued on antibiotics the form of Zosyn. Follow-up blood cultures. Repeat chest x-ray showed improving infiltrates. Left knee pain and swelling is resolved now. No redness noted around the joint. ID and pulmonary is followingd. Nephrology is on board. Status post left knee arthrocentesis Continue with home medications and titrate insulin dose. Follow up closely and further recommendations based on the clinical course. Time with Patient: Greater than 30
[2020-12-13 07:05] LABS: Glucose,Whole Blood 221 mg/dL (75-99)
[2020-12-13] MEDS: hydrALAZINE HCL 50 MG TAB PO SCH ×3 (08:12→20:04)
[2020-12-13] MEDS: FUROSEMIDE 80 MG TAB PO SCH ×2 (08:12→18:50)
[2020-12-13] MEDS: CALCIUM ACETATE 667 MG TAB PO SCH ×2 (08:12→18:51)
[2020-12-13] MEDS: CHOLECALCIFEROL 25 MCG (1000 IU) TABLET PO SCH (08:12)
[2020-12-13] MEDS: APIXABAN 2.5 MG TABLET PO SCH ×2 (08:12→20:04)
[2020-12-13] MEDS: COLCHICINE 0.6 MG EACH PO SCH ×2 (08:12→20:04)
[2020-12-13] MEDS: ASPIRIN 81 MG PO SCH (08:12)
[2020-12-13] MEDS: INSULIN ASPART (NovoLOG) 100 UNIT/ML VIAL SQ SCH ×7 (08:12→20:29)
[2020-12-13] MEDS: ZINC SULFATE 220 MG CAP PO SCH (08:13)
[2020-12-13] MEDS: ASCORBIC ACID 500 MG TAB PO SCH ×2 (08:13→20:05)
[2020-12-13 11:06] LABS: Basophils # (A) 0.19 X 10*3/uL (0.00-0.10); Basophils % (A) 1.1 %; Eosinophils % (A) 1.7 %; HCT 27.4 % (37.2-46.3); HGB 8.2 g/dL (12.0-15.0); Lymphocytes # (A) 2.85 X 10*3/uL (0.90-5.00); Lymphocytes % (A) 15.9 %; MCH 29.7 pg (27.0-32.0); MCHC 29.9 g/dL (32.0-37.0); MCV 99.3 fL (80.0-97.0); Mean Platelet Volume 9.5 fL (9.5-12.2); Monocytes # (A) 1.47 X 10*3/uL (0.20-1.00); Monocytes % (A) 8.2 %; Neutrophils # (A) 12.26 X 10*3/uL (1.80-7.70); Neutrophils % (A) 68.3 %; Platelet Count 617 X 10*3/uL (140-440); RBC 2.76 X 10*6/uL (4.10-5.20); RDW 17.3 % (11.5-14.5); WBC 17.94 X 10*3/uL (4.50-10.00)
[2020-12-13 11:34] LABS: Glucose,Whole Blood 139 mg/dL (75-99)
--- NOTE | 2020-12-13 11:53 | P.PN ---
Subjective Patient is seen in follow-up for end-stage renal disease. She is maintained on hemodialysis on Sunday schedule. She underwent aspiration of the left knee on December 10. No active complaints at this time. Hemodynamically stable. Scheduled for dialysis today. No changes overnight. Vital signs are stable. General: The patient appeared well nourished and normally developed. HEENT: Head exam is unremarkable. Neck is without jugular venous distension. LUNGS: Breath sounds decreased. HEART: Rate and Rhythm are regular. ABDOMEN: Soft, nontender. EXTREMITITES: 2+ edema. Objective - Vital Signs Vital signs: Vital Signs Temp 97.6 F 12/13/20 07:28 Pulse 71 12/13/20 08:00 Resp 17 12/13/20 08:00 BP 146/64 12/13/20 07:28 Pulse Ox 99 12/13/20 07:28 Intake & Output 12/12/20 12/13/20 12/13/20 18:59 06:59 18:59 Other: Voiding Method Toilet Toilet # Voids 6 1 - Labs CBC & Chem 7: 12/13/20 07:58 12/09/20 11:01 Labs: Abnormal Lab Results - Last 24 Hours (Table) 12/12/20 12/12/20 12/12/20 Range/Units 11:52 16:51 20:17 WBC (4.50-10.00) X 10*3/uL RBC (4.10-5.20) X 10*6/uL Hgb (12.0-15.0) g/dL Hct (37.2-46.3) % MCV (80.0-97.0) fL MCHC (32.0-37.0) g/dL RDW (11.5-14.5) % Plt Count (140-440) X 10*3/uL Immature Gran # (0.00-0.04) X 10*3/uL Neutrophils # (1.80-7.70) X 10*3/uL Monocytes # (0.20-1.00) X 10*3/uL Basophils # (0.00-0.10) X 10*3/uL POC Glucose (mg/dL) 199 H 178 H 195 H (75-99) mg/dL 12/13/20 12/13/20 12/13/20 Range/Units 06:50 07:58 11:31 WBC 17.94 H (4.50-10.00) X 10*3/uL RBC 2.76 L (4.10-5.20) X 10*6/uL Hgb 8.2 L (12.0-15.0) g/dL Hct 27.4 L (37.2-46.3) % MCV 99.3 H (80.0-97.0) fL MCHC 29.9 L (32.0-37.0) g/dL RDW 17.3 H (11.5-14.5) % Plt Count 617 H (140-440) X 10*3/uL Immature Gran # 0.87 H (0.00-0.04) X 10*3/uL Neutrophils # 12.26 H (1.80-7.70) X 10*3/uL Monocytes # 1.47 H (0.20-1.00) X 10*3/uL Basophils # 0.19 H (0.00-0.10) X 10*3/uL POC Glucose (mg/dL) 221 H 139 H (75-99) mg/dL Microbiology - Last 24 Hours (Table) 12/10/20 13:05 Anaerobic Culture - Preliminary Knee - Left 12/08/20 15:50 Blood Culture - Preliminary Blood No Growth after 96 hours 12/08/20 15:56 Blood Culture - Preliminary Blood No Growth after 96 hours Assessment and Plan Plan: Assessment: 1. End-stage renal disease maintained on hemodialysis on Sunday schedule. 2. Possible left knee septic arthritis. Status post aspiration December 10. Orthopedic surgery following. 3. Hypertension with chronic kidney disease. Stable. 4. Chronic kidney disease mineral bone disease maintained on PhosLo. 5. Diabetes mellitus. 6. Chronic lower extremity lymphedema. 7. Anemia of chronic kidney disease. Plan: Hemodialysis today. Follow-up cultures. Maintain oral Lasix. Add Aranesp.
[2020-12-13] MEDS ORDERED: DARBEPOETIN ALFA 40 MCG/0.4 ML SYRINGE SQ SCH (12:00)
--- NOTE | 2020-12-13 13:32 | P.DS ---
Providers Date of admission: 12/08/20 17:30 Attending physician: Usman Silva Consults: 12/08/20 17:30 Consult Physician Routine Consulting Provider: Lian Campos Consult Reason/Comments: dyspnea Do you want consulting provider notified?: Yes 12/08/20 18:02 Consult Physician Urgent Consulting Provider: Darshana Felton Consult Reason/Comments: pneumonia, covid Do you want consulting provider notified?: Yes 12/09/20 09:00 Consult Physician Urgent Consulting Provider: Gwen Ulrich Consult Reason/Comments: hemodialysis Do you want consulting provider notified?: Yes 12/10/20 11:28 Consult Physician Urgent Consulting Provider: Gabriel Liao Consult Reason/Comments: possible knee aspiration Do you want consulting provider notified?: Yes Primary care physician: Piedad Quezada [facility] Hospital Course: Fever and chills. Gouty arthritis, rule out septic arthritis Patient is a 65-year-old female with a known history of ESRD on hemodialysis Sunday and Sunday for the past 5 years, AV graft, recent covid 19 positive on 11/01/2020 with recovery, recently admitted to the hospital at [facility] and found to have bilateral lower extremity DVTs and was sta rted on Eliquis for anticoagulation, hypertension, diabetes type 2 and bilateral lower extremity chronic venous stasis and lymphedema presents to ER due to complaints of fever and chills with T-max of 10.1. 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 Patient was also complaining of fatigue and decreased appetite and oral intake. Does have cough and shortness of breath on admission. Patient does have loss of taste and smell. She was also complaining of left knee pain. Patient says that she had thrombolysis done in the left upper extremity AV graft. Not sure which pushes it was done. In the ER chest x-ray showed correlate for pneumonia or edema. Follow-up is recommended. EKG showed normal sinus rhythm. Laboratory data showed WBC 12.8, hemoglobin 9.6, RDW 16.1 and platelets 732 MCV 94.3 Sodium 133 potassium 4.2 chloride 91 bicarb 32 BUN 11 and creatinine 3.24 AST 22 ALT 16 alk phos 163 LDH 701 CRP 178 and pro calcitonin 0.3 Covid 19 PCR not detected. Patient was started on antibiotics for possible pneumonia in the ER. Currently on Zosyn and azithromycin. 12/10/2020 Patient is currently sitting in the chair comfortably. No complaints of chest pain or shortness of breath. Patient has been afebrile. No episodes of fever while in the hospital so far. No dysuria or hematuria. Patient was seen by orthopedic surgery left knee joint aspiration was done and fluid was sent for analysis. Patient remains on antibiotics in the form of Zosyn. ID and pulmonary is following. Source of infection is unclear at this time. Blood cultures have been negative so far. 12/11/2020 Patient is currently sitting in the chair. Complains of pain at the aspiration site of left knee. Patient states that she is unable to flex her knee completely. Otherwise patient is afebrile. Synovial fluid analysis showed no evidence of infection. Fluid culture and crystals pending at this time. Blood cultures have been negative so far. Patient is afebrile. No cough or sputum production. Saturating well on room air. No headache or dizziness or lightheadedness. No chest pain or shortness breath. 12/12/2020 patient states that her left knee pain is better today. Afebrile. No nausea vomiting or abdominal pain. Fluid culture and analysis is pending at this time. Blood cultures have been negative so far. Patient has been afebrile while in the hospital. Orthopedic surgery is following. Patient will receive a dose of Toradol yesterday. patient is scheduled for hemodialysis tomorrow. ID is on board. Patient was initially admitted to hospital due to fever and chills. No septic focus is noted so far. 12/13/2020 Patient pain in the left is better patient appears to have gout. Patient was started on colchicine antibiotics were discontinued and patient will be discharged after hemodialysis today patient does have bilateral lower leg edema and patient states that she has lymphedema which is chronic PHYSICAL EXAMINATION: Patient is lying in the bed comfortably, no acute distress, awake alert and oriented. Morbidly obese. HEENT: Normocephalic. Neck is supple. Pupils reactive. Nostrils clear. Oral cavity is moist. Ears reveal no drainage. Neck reveals no JVD, carotid bruits, or thyromegaly. CHEST EXAMINATION: Trachea is central. Symmetrical expansion. Lung [place] clear to auscultation and percussion. CARDIAC: Normal S1, S2 with no gallops. No murmurs ABDOMEN: Soft. Bowel sounds normal. No organomegaly. No abdominal bruits. Extremities: Bilateral lower extremity lymphedema with skin discoloration due to venous stasis. No clubbing or cyanosis Neurologically awake, alert, oriented x3 with well-coordinated movements. No focal deficits noted Skin: No rash or skin lesions. Psychiatric: Coperative. Nonsuicidal Musculoskeletal: No joint swelling or deformity. Normal range of motion. Assessment and Plan Assessment: Gouty arthritis of the left knee ruled out septic arthritis. Cultures are so far negative Recent history of bilateral lower extremity DVT currently on anticoagulation with Eliquis Recent history of covid 19 diagnoses on 11/01/2020 with improvement in bilateral pulmonary infiltrates on repeat chest x-ray. On room air currently. Chronic bilateral lower extremity lymphedema and chronic venous stasis changes ESRD on hemodialysis Sunday, left upper extremity AV graft. Morbid obesity with BMI 40.7 History of gout in the left knee Anemia of chronic disease Hypertension Diabetes type 2 insulin-dependent Bilateral lower extremity diabetic peripheral neuropathy History of cardiac ablation History of IBS DVT prophylaxis. Patient is already on Eliquis Plan - Discharge Summary Discharge Rx Participant: No New Discharge Prescriptions: New Colchicine [Colcrys] 0.6 mg PO BID #60 each Continue Gabapentin [Neurontin] 300 mg PO DAILY PRN PRN Reason: NERVE PAIN Aspirin [Adult Low Dose Aspirin EC] 81 mg PO DAILY amLODIPine [Norvasc] 10 mg PO HS Insulin Glargine,Hum.rec.anlog [Basaglar Kwikpen U-100] 21 unit SQ HS Ondansetron HCl [Zofran] 4 mg PO Q8H PRN PRN Reason: Nausea And Vomiting Lidocaine-Prilocaine Cream [Emla Cream 2.5%/2.5%] 1 applic TOPICAL TUTHSA PRN PRN Reason: DIALYIS DAYS INSULIN ASPART (NovoLOG) [NovoLOG (formulary)] See Protocol SQ AC-TID Calcium Acetate [PhosLo] 667 mg PO DAILY PRN PRN Reason: with a snack Calcium Acetate [PhosLo] 1,334 mg PO AC-BID HYDROcodone/APAP 7.5-325MG [[place] 7.5-325] 1 tablet PO Q6H PRN PRN Reason: Pain hydrALAZINE HCL [Apresoline] 50 mg PO TID #90 tab Furosemide [Lasix] 80 mg PO BID PRN PRN Reason: Edema Albuterol Sulfate [Ventolin HFA] 2 puff INHALATION Q6H PRN 30 Days #1 inhaler PRN Reason: Shortness Of Breath Apixaban [Eliquis] 5 mg PO BID INSULIN ASPART (NovoLOG) [NovoLOG (formulary)] 12 unit SQ AC-TID Zinc 50 mg PO BID Discharge Medication List Gabapentin [Neurontin] 300 mg PO DAILY PRN 06/27/16 [History] Aspirin [Adult Low Dose Aspirin EC] 81 mg PO DAILY 09/16/16 [History] amLODIPine [Norvasc] 10 mg PO HS 11/29/16 [History] Insulin Glargine,Hum.rec.anlog [Basaglar Kwikpen U-100] 21 unit SQ HS 07/08/18 [History] Lidocaine-Prilocaine Cream [Emla Cream 2.5%/2.5%] 1 applic TOPICAL TUTHSA PRN 05/19/20 [History] Ondansetron HCl [Zofran] 4 mg PO Q8H PRN 05/19/20 [History] Calcium Acetate [PhosLo] 1,334 mg PO AC-BID 07/12/20 [History] Calcium Acetate [PhosLo] 667 mg PO DAILY PRN 07/12/20 [History] INSULIN ASPART (NovoLOG) [NovoLOG (formulary)] See Protocol SQ AC-TID 07/12/20 [History] HYDROcodone/APAP 7.5-325MG [[place] 7.5-325] 1 tablet PO Q6H PRN 07/13/20 [History] hydrALAZINE HCL [Apresoline] 50 mg PO TID #90 tab 07/16/20 [Rx] Furosemide [Lasix] 80 mg PO BID PRN 11/01/20 [History] Albuterol Sulfate [Ventolin HFA] 2 puff INHALATION Q6H PRN 30 Days #1 inhaler 11/05/20 [Rx] Apixaban [Eliquis] 5 mg PO BID 12/08/20 [History] INSULIN ASPART (NovoLOG) [NovoLOG (formulary)] 12 unit SQ AC-TID 12/08/20 [History] Zinc 50 mg PO BID 12/08/20 [History] Colchicine [Colcrys] 0.6 mg PO BID #60 each 12/13/20 [Rx] Follow up Appointment(s)/Referral(s): Piedad Ingram III, MD [Primary Care Provider] - 12/15/20 10:30 am (This will be a phone visit) Discharge Disposition: HOME SELF-CARE
[2020-12-13 13:51] LABS: African American GFR (CKD) 6.5 (60.0-200.0); Anion Gap 12.7 mmol/L (4.00-12.00); BUN/Creat Ratio 10.57 Ratio (12.00-20.00); Calcium 8.8 mg/dL (8.7-10.3); Carbon Dioxide 21.3 mmol/L (21.6-31.8); Non-African American GFR(CKD) 5.6 (60.0-200.0); Potassium 6.4 mmol/L (3.5-5.5)
--- NOTE | 2020-12-13 14:33 | PN ---
PROGRESS NOTE DATE OF SERVICE: 12/13/2020 REASON FOR FOLLOWUP: Subjective fever and left knee pain, question septic arthritis. INTERVAL HISTORY: The patient is currently afebrile. Patient is breathing comfortably. Denies having any chest pain. No shortness of breath or cough. No nausea, no vomiting. No abdominal pain. No diarrhea. Still complaining of pain in the left knee area but no worsening though. PHYSICAL EXAMINATION: Blood pressure 146/64, pulse of 71, temperature 97.6. She is 99% on room air. General description is an elderly female up in the bed in no distress. RESPIRATORY SYSTEM: Unlabored breathing, decreased intensity of breath sounds. No wheeze. HEART: S1, S2. Regular rate and rhythm. ABDOMEN: Soft, no tenderness. Left knee with minimal swelling, no redness. LABS: Hemoglobin 8.2, white count 17.94. DIAGNOSTIC IMPRESSION AND PLAN: Patient presented to the hospital with fever, though no fever has been recorded in this hospital stay. Patient was complaining of pain to the left knee, which has been aspirated, did not show significant elevated white count with concern for possible gouty arthritis versus advanced osteoarthritis. However, the patient did have significant jump in her white count that is slightly concerning after or antibiotic. We will check a blood culture. Check inflammatory marker, a chest x-ray and recommend holding on discharge today. Re-evaluate the CBC tomorrow. Continue supportive care. MMODL / IJN: [id number] /
[2020-12-13] MEDS: HYDROcodone/APAP 7.5-325MG 1 EACH TAB PO PRN (15:13)
--- NOTE | 2020-12-13 16:41 | XR ---
EXAMINATION TYPE: XR chest 1V portable DATE OF EXAM: 12/13/2020 Comparison: 12/09/2020 Clinical History: 65-year-old female pneumonia Findings: Heart mildly enlarged. Patchy medial right basilar opacity is similar. Mild interstitial prominence i s unchanged and may be chronic. No pleural effusion. Impression: Similar medial right basilar infiltrate. Interstitial prominence may in part be chronic.
[2020-12-13 16:52] LABS: Glucose,Whole Blood 107 mg/dL (75-99)
[2020-12-13] MEDS: amLODIPine 10 MG TAB PO SCH (20:04)
[2020-12-13 20:18] LABS: Glucose,Whole Blood 147 mg/dL (75-99)
[2020-12-13] MEDS: INSULIN DETEMIR (LEVEMIR) 100 UNIT/ML SYR SQ SCH (20:28)
[2020-12-13 20:40] VITALS: RESP 20; TEMP 97.8
[2020-12-13 21:17] VITALS: BP 160/64; PULSE 83
--- NOTE | 2020-12-14 12:02 | P.PN ---
Progress Note - Text 65-year-old female was admitted the for arthritis of the knee initially was treated for septic arthritis, after several fluid analysis and believed that patient hasn't committed arthritis was discharged on colchicine now her sinus reveal fluid cultures came back positive for staph aureus patient is called to come back to the hospital there was no response a message was left with a callback number.
== END 2020-12-13 21:17 | disposition home or self-care (01) | DRG 553 ==
LOC: EC 14:32 → 4SSUR 17:30
PROVIDERS: ADMIT Hospitalist; ATTEND Hospitalist
PROC: 0S9D3ZZ Drainage of Left Knee Joint, Percutaneous Approach (ICD-10-PCS; principal; 2020-12-10)
PROC: 5A1D70Z Performance of Urinary Filtration, Intermittent, Less than 6 Hours Per Day (ICD-10-PCS; 2020-12-10)
DX: M10.062 Idiopathic gout, left knee (principal); N18.6 End stage renal disease; I12.0 Hypertensive chronic kidney disease with stage 5 chronic kidney disease or end stage renal disease; Z68.41 Body mass index [BMI] 40.0-44.9, adult; D63.1 Anemia in chronic kidney disease; E11.22 Type 2 diabetes mellitus with diabetic chronic kidney disease; E11.40 Type 2 diabetes mellitus with diabetic neuropathy, unspecified; E66.01 Morbid (severe) obesity due to excess calories; I25.10 Atherosclerotic heart disease of native coronary artery without angina pectoris; I89.0 Lymphedema, not elsewhere classified; I87.8 Other specified disorders of veins; M65.9 Synovitis and tenosynovitis, unspecified; Z86.16 Personal history of COVID-19; Z20.822 Contact with and (suspected) exposure to COVID-19; M17.10 Unilateral primary osteoarthritis, unspecified knee; M89.8X9 Other specified disorders of bone, unspecified site; Z96.1 Presence of intraocular lens; Z79.01 Long term (current) use of anticoagulants; Z79.4 Long term (current) use of insulin; Z79.82 Long term (current) use of aspirin; Z79.899 Other long term (current) drug therapy; Z80.3 Family history of malignant neoplasm of breast; Z80.42 Family history of malignant neoplasm of prostate; Z83.3 Family history of diabetes mellitus; Z85.828 Personal history of other malignant neoplasm of skin; Z86.718 Personal history of other venous thrombosis and embolism; Z87.01 Personal history of pneumonia (recurrent); Z98.41 Cataract extraction status, right eye; Z98.42 Cataract extraction status, left eye; Z99.2 Dependence on renal dialysis
CPT/HCPCS: 36415; 71045; 80048; 80053; 82728; 83605; 83615; 83735; 84145; 85025; 85610; 85652; 85730; 86140; 87040; 87070; 87075; 87077; 87102; 87186; 87205; 87635; 89050; 89060; 90935; 93005; 94640; 96365; 96367; 96375; 99291

== ENCOUNTER 2020-12-14 14:40 | Inpatient (IN) | payer MEDICARE, BC ==
[2020-12-14] MEDS ORDERED: VANCOMYCIN IV PER PHARMACY 1 EACH MISC MISCELLANE PRN (15:06)
[2020-12-14] MEDS ORDERED: SODIUM CHLORIDE 0.9% 1,000 ML IV STA (15:08)
[2020-12-14] MEDS ORDERED: NALOXONE 0.4 MG/ML 1 ML VIAL IV PRN (15:11)
[2020-12-14] MEDS ORDERED: traMADol 50 MG TAB PO PRN (15:11)
--- NOTE | 2020-12-14 15:15 | ED ---
Recheck HPI - General Chief Complaint: Recheck/Abnormal Lab/Rx Stated Complaint: Lft knee infection Time Seen by Provider: 12/14/20 14:56 Source: patient, RN notes reviewed Mode of arrival: wheelchair Limitations: no limitations - History of Present Illness Initial Comments: Patient is a 65 she'll female that presents to emergency department with a left knee staph aureus infection. She noted that she was dismissed discharge from the hospital today but then was called with lab reports and that she should come back to the IV antibiotics and fluids due to staph aureus being cultured on joint aspiration. She also has a history of lymphedema bilateral legs. She denied any pain or need for any pain medication at the moment. She stated that her knee was not sore or painful. She denied any chest pain short of breath headache nausea vomiting diarrhea constipation fever fatigue chills. - Related Data Home Medications Medication Instructions Recorded Confirmed Gabapentin [Neurontin] 300 mg PO DAILY PRN 06/27/16 12/08/20 Aspirin [Adult Low Dose Aspirin EC] 81 mg PO DAILY 09/16/16 12/08/20 amLODIPine [Norvasc] 10 mg PO HS 11/29/16 12/08/20 Insulin Glargine,Hum.rec.anlog 21 unit SQ HS 07/08/18 12/08/20 [Vin Rollins U-100] Lidocaine-Prilocaine Cream [Emla 1 applic TOPICAL TUTHSA PRN 05/19/20 12/08/20 Cream 2.5%/2.5%] Ondansetron HCl [Zofran] 4 mg PO Q8H PRN 05/19/20 12/08/20 Calcium Acetate [PhosLo] 1,334 mg PO AC-BID 07/12/20 12/08/20 Calcium Acetate [PhosLo] 667 mg PO DAILY PRN 07/12/20 12/08/20 INSULIN ASPART (NovoLOG) [NovoLOG See Protocol SQ AC-TID 07/12/20 12/08/20 (formulary)] HYDROcodone/APAP 7.5-325MG [[place] 1 tablet PO Q6H PRN 07/13/20 12/08/20 7.5-325] Furosemide [Lasix] 80 mg PO BID PRN 11/01/20 12/08/20 Apixaban [Eliquis] 5 mg PO BID 12/08/20 12/08/20 INSULIN ASPART (NovoLOG) [NovoLOG 12 unit SQ AC-TID 12/08/20 12/08/20 (formulary)] Zinc 50 mg PO BID 12/08/20 12/08/20 Previous Rx's Medication Instructions Recorded hydrALAZINE HCL [Apresoline] 50 mg PO TID #90 tab 07/16/20 Albuterol Sulfate [Ventolin HFA] 2 puff INHALATION Q6H PRN 30 Days 11/05/20 #1 inhaler Colchicine [Colcrys] 0.6 mg PO BID #60 each 12/13/20 Allergies Allergy/AdvReac Type Severity Reaction Status Date / Time sulfamethoxazole AdvReac Nausea & Verified 12/14/20 14:46 [From Bactrim] Vomiting,dyspnea trimethoprim [From Bactrim] AdvReac Nausea & Verified 12/08/20 17:22 Vomiting,dyspnea Review of Systems ROS Statement: Those systems with pertinent positive or pertinent negative responses have been documented in the HPI. ROS Other: All systems not noted in ROS Statement are negative. Past Medical History Past Medical History: Diabetes Mellitus, Dialysis, Deep Vein Thrombosis (DVT), Hypertension, Renal Disease Additional Past Medical History / Comment(s): ESRD with hemodialysis t,th, sat, IDDM type II, past DKA, neuropathy bilateral feet/legs and alittle in hands, "fast heart rate"-had cardiac ablation, lymphedema bilateral lower legs/feet, gout R knee, mineral bone disease, IBS, R sided Mustafa's palsey.skin CA on back removed. covid 19 in October History of Any Multi-Drug Resistant Organisms: None Reported Past Surgical History: Appendectomy, Cardiac Ablation, Section, Cholecystectomy, Tubal Ligation Additional Past Surgical History / Comment(s): bilateral cataract removal with lens implants, C-sections, bilateral benign breast biopsies, AV graft left arm done 06-23-16 for dialysis, colonoscopy. Past Anesthesia/Blood Transfusion Reactions: Motion Sickness, Postoperative Nausea & Vomiting (PONV) Past Psychological History: No Psychological Hx Reported Smoking Status: Never smoker Past Alcohol Use History: None Reported Past Drug Use History: None Reported - Past Family History Father Family Medical History: Cancer, Diabetes Mellitus Additional Family Medical History / Comment(s): Father had prostate cancer. Mother Family Medical History: Cancer Additional Family Medical History / Comment(s): Mother had breast cancer. General Exam Limitations: no limitations General appearance: alert, in no apparent distress Head exam: Present: atraumatic, normocephalic, normal inspection Eye exam: Present: normal appearance, PERRL, EOMI. Absent: scleral icterus, conjunctival injection, periorbital swelling ENT exam: Present: normal exam, mucous membranes moist Neck exam: Present: normal inspection. Absent: tenderness, meningismus, lymphadenopathy Respiratory exam: Present: normal lung sounds bilaterally. Absent: respiratory distress, wheezes, rales, rhonchi, stridor Cardiovascular Exam: Present: regular rate, normal rhythm, normal heart sounds. Absent: systolic murmur, diastolic murmur, rubs, gallop, clicks Extremities exam: Present: normal inspection, full ROM, normal capillary refill, other (Bilateral lower extremity lymphedema,). Absent: tenderness, pedal edema, joint swelling, calf tenderness Neurological exam: Present: alert, oriented X3, CN II-XII intact Psychiatric exam: Present: normal affect, normal mood Skin exam: Present: warm, dry, intact, normal color, other (Dry flaky skin noted on bilateral lower legs/and.). Absent: rash Course Vital Signs 12/14/20 14:42 Temperature 98.2 F Pulse Rate 78 Respiratory 16 Rate Blood Pressure 143/85 O2 Sat by Pulse 98 Oximetry Medical Decision Making - Medical Decision Making Patient is 65-year-old female with a staph aureus left knee joint infection. CBC, CMP, lactic acid, blood cultures ordered. IV Rocephin and vancomycin ordered and started. 1 L of normal saline bolus given. Case discussed with Dr. Ornelas, it was decided to admit patient to inpatient Sunday but antibiotic therapy. Disposition Clinical Impression: Staph aureus infection, Infection of knee, Obesity Disposition: ADMITTED IP TO THIS HOSP Condition: Stable Referrals: Piedad Ingram III, MD [Primary Care Provider] - 1-2 days
[2020-12-14] MEDS: SODIUM CHLORIDE 0.9% 1,000 ML IV SCH (15:38)
[2020-12-14] MEDS: MORPHINE SULFATE 4 MG/ML SYRINGE IV PRN ×3 (15:42→23:47)
[2020-12-14] MEDS: ONDANSETRON 4 MG/2 ML VIAL IVP PRN ×2 (15:43→23:49)
[2020-12-14 16:26] LABS: Anisocytosis Slight; Basophils # (A) 0.2 k/uL (0-0.2); Basophils % (A) 1 %; Eosinophils # (A) 0.6 k/uL (0-0.7); Eosinophils % (A) 4 %; HCT 23.9 % (34.0-46.0); HGB 7.6 gm/dL (11.4-16.0); Hypochromasia Slight; Lymphocytes # (A) 2.5 k/uL (1.0-4.8); Lymphocytes % (A) 15 %; MCH 30.3 pg (25.0-35.0); MCHC 31.6 g/dL (31.0-37.0); MCV 95.7 fL (80.0-100.0); Macrocytosis Slight; Monocytes # (A) 1.1 k/uL (0-1.0); Monocytes % (A) 7 %; Neutrophils # (A) 11.9 k/uL (1.3-7.7); Neutrophils % (A) 73 %; Platelet Count 580 k/uL (150-450); RDW 17.3 % (11.5-15.5); WBC 16.4 k/uL (3.8-10.6)
[2020-12-14] MEDS ORDERED: VANCOMYCIN 1,750 MG in SODIUM CHLORIDE 0.9% 500 ML 500 ML IVPB ONE (16:30)
[2020-12-14 16:41] LABS: Albumin 3.6 g/dL (3.5-5.0); Calcium 8.9 mg/dL (8.4-10.2); Potassium 5.5 mmol/L (3.5-5.1); Total Bilirubin 0.5 mg/dL (0.2-1.3); Total Protein 7.6 g/dL (6.3-8.2)
[2020-12-14 17:21] LABS: Glucose,Whole Blood 129 mg/dL (75-99)
[2020-12-14 20:43] LABS: Appearance,BF Cloudy; Color,BF Yellow; Nucleated Cells, Body Fluid 24600 /uL; RBC, Body Fluid 650 /uL
[2020-12-14 20:45] LABS: Mononuclear WBC,Body Fluid 5 %; Polynuclear WBC,Body Fluid 95 %; Total Cells Counted,Body Fluid 100
[2020-12-14 20:52] LABS: Glucose,Whole Blood 134 mg/dL (75-99)
--- NOTE | 2020-12-14 21:55 | P.CNOR ---
History of Present Illness - HPI Consult date: 12/14/20 Consult reason: joint pain History of present illness: 65-year-old female return to the emergency department after positive cultures came back On her knee aspiration from earlier in the week. The patient had been having a lot of pain in her knee however had gotten a lot better it was really not having any issues at discharge. Her original aspiration was very benign with synovial wbc of 10,000 and 95% PMN and no oranisms originally with a negative gram stain originally. She states now that shes having more knee pain than she was and that at home the [place] was not helping her. She denies any fevers or chills. Shes actually having emesis in the room during exam as she got morphine. It does appear to be coffee ground in nature. She just ate dinner as well. She denies any other symptoms right now she does have some sort of shortness of breath and was diagnosed with pneumonia previously. Review of Systems 14 point ROS completed and as stated in HPI. All other systems reviewed negative. Past Medical History Past Medical History: Diabetes Mellitus, Dialysis, Deep Vein Thrombosis (DVT), Hypertension, Renal Disease Additional Past Medical History / Comment(s): ESRD with hemodialysis t,th, sat, IDDM type II, past DKA, neuropathy bilateral feet/legs and alittle in hands, "fast heart rate"-had cardiac ablation, lymphedema bilateral lower legs/feet, gout R knee, mineral bone disease, IBS, R sided Mustafa's palsey.skin CA on back removed. covid 19 in October History of Any Multi-Drug Resistant Organisms: None Reported Past Surgical History: Appendectomy, Cardiac Ablation, Section, Cholecystectomy, Tubal Ligation Additional Past Surgical History / Comment(s): bilateral cataract removal with lens implants, C-sections, bilateral benign breast biopsies, AV graft left arm done 06-23-16 for dialysis, colonoscopy. Past Anesthesia/Blood Transfusion Reactions: Motion Sickness, Postoperative Nausea & Vomiting (PONV) Past Psychological History: No Psychological Hx Reported Smoking Status: Never smoker Past Alcohol Use History: None Reported Past Drug Use History: None Reported - Past Family History Father Family Medical History: Cancer, Diabetes Mellitus Additional Family Medical History / Comment(s): Father had prostate cancer. Mother Family Medical History: Cancer Additional Family Medical History / Comment(s): Mother had breast cancer. Medications and Allergies Home Medications Medication Instructions Recorded Confirmed Type RX: Gabapentin [Neurontin] 300 mg PO DAILY PRN 06/27/16 12/14/20 History RX: Aspirin [Adult Low Dose 81 mg PO DAILY 09/16/16 12/14/20 History Aspirin EC] RX: amLODIPine [Norvasc] 10 mg PO HS 11/29/16 12/14/20 History RX: Insulin Glargine,Hum.rec.anlog 21 unit SQ HS 07/08/18 12/14/20 History [Basaglar Kwikpen U-100] RX: Lidocaine-Prilocaine Cream 1 applic TOPICAL TUTHSA PRN 05/19/20 12/14/20 History [Emla Cream 2.5%/2.5%] RX: Ondansetron HCl [Zofran] 4 mg PO Q8H PRN 05/19/20 12/14/20 History RX: Calcium Acetate [PhosLo] 1,334 mg PO AC-BID 07/12/20 12/14/20 History RX: Calcium Acetate [PhosLo] 667 mg PO DAILY PRN 07/12/20 12/14/20 History RX: INSULIN ASPART (NovoLOG) See Protocol SQ AC-TID 07/12/20 12/14/20 History [NovoLOG (formulary)] RX: HYDROcodone/APAP 7.5-325MG 1 tablet PO Q6H PRN 07/13/20 12/14/20 History [[place] 7.5-325] RX: hydrALAZINE HCL [Apresoline] 50 mg PO TID #90 tab 07/16/20 12/14/20 Rx RX: Furosemide [Lasix] 80 mg PO BID PRN 11/01/20 12/14/20 History RX: Albuterol Sulfate [Ventolin 2 puff INHALATION Q6H PRN 30 Days 11/05/20 12/14/20 Rx HFA] #1 inhaler RX: Apixaban [Eliquis] 5 mg PO BID 12/08/20 12/14/20 History RX: INSULIN ASPART (NovoLOG) 12 unit SQ AC-TID 12/08/20 12/14/20 History [NovoLOG (formulary)] RX: Zinc 50 mg PO BID 12/08/20 12/14/20 History RX: Colchicine [Colcrys] 0.6 mg PO BID #60 each 12/13/20 12/14/20 Rx Allergies Allergy/AdvReac Type Severity Reaction Status Date / Time sulfamethoxazole AdvReac Nausea & Verified 12/14/20 17:46 [From Bactrim] Vomiting,dyspnea trimethoprim [From Bactrim] AdvReac Nausea & Verified 12/14/20 17:46 Vomiting,dyspnea Physical Examination Osteopathic Statement: *. No significant issues noted on an osteopathic structural exam other than those noted in the History and Physical/Consult. AOX3 NAD in room with her Non septic appearing Slightly sedated due to morphine Minimal pain in knee currently Obese body habitus, edema in LE b/l with venous stasis appearance No erythema around knee, no ecchymosis, mild 1+ effusion of LEFT knee No pain with passive motion of the LEFT knee, inability to bear weight at this time however Currently having coffee ground emesis LLE exam: L knee is without Erythema, calor, edema. There is a mild 1+ effusion. There is no pain with palpation of the knee. There is no pain with patellar ballotment The knee is stable to varus valgus ant/post drawer testing SILT L2-S1 5/5 EHL, FHL, SLR, KF, KE, DF, PF 2/4 DP/PT pulses compartments soft and compressive There is no pain with movement of the LEFT hip or ankle There is FROM of all major joints of the LE b/l There is FROM of all major joints of the UE b/l without pain UE exams benign with full strength all major muscle groups and palpable distal pulses with soft compartments Results Previous knee aspiration showed culture that grew out Staph A. No other cultures grew any organisms. New aspiration cultures pending New knee xrays pending pending - Labs Labs: Abnormal Lab Results - Last 24 Hours (Table) 12/14/20 12/14/20 12/14/20 Range/Units 15:29 15:29 17:18 WBC 16.4 H (3.8-10.6) k/uL RBC 2.50 L (3.80-5.40) m/uL Hgb 7.6 L (11.4-16.0) gm/dL Hct 23.9 L (34.0-46.0) % RDW 17.3 H (11.5-15.5) % Plt Count 580 H (150-450) k/uL Neutrophils # 11.9 H (1.3-7.7) k/uL Monocytes # 1.1 H (0-1.0) k/uL Sodium 133 L (137-145) mmol/L Potassium 5.5 H (3.5-5.1) mmol/L Carbon Dioxide 21 L (22-30) mmol/L BUN 58 H (7-17) mg/dL Creatinine 5.94 H (0.52-1.04) mg/dL Glucose 114 H (74-99) mg/dL POC Glucose (mg/dL) 129 H (75-99) mg/dL H & H 12/14/20 Range/Units 15:29 Hgb 7.6 L (11.4-16.0) gm/dL Hct 23.9 L (34.0-46.0) % Result Diagrams: 12/14/20 15:29 12/14/20 15:29 Assessment and Plan Assessment: Pt s/e on the hospital floor 65 yo female with LEFT knee pain, Possible Septic arthrits one positive culture after aspiration, possible contaminant. Staph A. Previous synovial count does not reflect septic arthritis. Pt was previously dx with pneumonia and is ESRD which can elevate SED and CRP as well. WBC count is again high here today, however it is lower than previously. Pt has hx of gout in RIGHT knee, never in LEFT. Previous aspiration did not show crystals. Continued pain in LEFT knee and positive cultures Multiple medical comorbidities Plan: -Appreciate consult -RE-aspiration of LEFT knee. After informed consent the patients LEFT knee was identified and superior lateral area was prepped and draped in a sterile fashion. An 18 g needle was introduced into the patients LEFT suprapatellar region. 20 cc of cloudy straw colored fluid was obtained. 10 cc was sent to lab for stat gram stain, synovial fluid analysis, and culture. The rest was discarded. There was no blood in tap. The patient tolerated this well and the site was bandaged after removal of needle. There were no complications. -Trend labs sed and crp -Pain control, light on the morphine and narcotics -Medical management -GI/DVT ppx -NPO @ [place] Had a long discussion with patient and . At this time she is vomiting coffee ground like material and has just had dinner. Her aspirate is more concerning this time as it is cloudy as compared to her previous aspirate which was not. She is having pain, but states it is much better than it was before. Due to the readmission, positive cultures and continued pain I do feel that we should lavage this knee. Due to her high risk with medical comorbids, recent and continuing pneumonia, emesis, recent meal we need to wait until morning for lavage. I explained the risks and benefits of this and the procedure at length to the and patient. They agreed and pt stated her lungs and kidneys are bad and that she would rather wait until it is more safe for surgery. We will board her first thing in the AM for arthroscopic lavage of the LEFT knee with cultures. They were comfortable with this. She is currently on vancomycin and this can continue Await aspiration results Time with Patient: Greater than 30
[2020-12-14] MEDS ORDERED: SCOPOLAMINE 1.5MG/72HR PATCH TRANSDERM STA (22:01)
[2020-12-15] MEDS: HEPARIN SODIUM,PORCINE 5,000 UNIT/ML 1 ML VIAL SQ SCH ×3 (00:06→17:44)
[2020-12-15 00:38] LABS: Anisocytosis Slight; Basophils # (A) 0.2 k/uL (0-0.2); Basophils % (A) 1 %; Eosinophils # (A) 0.2 k/uL (0-0.7); Eosinophils % (A) 1 %; HCT 23.1 % (34.0-46.0); HGB 7.2 gm/dL (11.4-16.0); Hypochromasia Moderate; Lymphocytes # (A) 2.9 k/uL (1.0-4.8); Lymphocytes % (A) 16 %; MCH 30.7 pg (25.0-35.0); MCHC 31.3 g/dL (31.0-37.0); MCV 98.2 fL (80.0-100.0); Macrocytosis Slight; Mean Platelet Volume 7.4; Monocytes # (A) 1.2 k/uL (0-1.0); Monocytes % (A) 7 %; Neutrophils # (A) 13.5 k/uL (1.3-7.7); Neutrophils % (A) 74 %; Platelet Count 526 k/uL (150-450); RBC 2.35 m/uL (3.80-5.40); RDW 17.1 % (11.5-15.5); WBC 18.3 k/uL (3.8-10.6)
[2020-12-15] MEDS: SODIUM CHLORIDE 0.9% 1,000 ML IV SCH (04:41)
[2020-12-15] MEDS ORDERED: NALOXONE 0.4 MG/ML 1 ML VIAL ONE (06:53)
[2020-12-15] MEDS ORDERED: WATER FOR INJECTION, STERILE 10 ML VIAL IV ONE (06:53)
[2020-12-15] MEDS ORDERED: ONDANSETRON 4 MG/2 ML VIAL ONE (06:53)
[2020-12-15] MEDS ORDERED: PHENYLEPHRINE-0.9% NACL SYG 1,000 MCG/10 ML SYRINGE ONE (06:53)
[2020-12-15] MEDS ORDERED: PROPOFOL 10 MG/ML 20 ML VIAL IV ONE (06:53)
[2020-12-15] MEDS ORDERED: LIDOCAINE 1% INJ 10MG/ML (20 ML MDV) ONE (06:53)
[2020-12-15] MEDS ORDERED: ePHEDrine SULFATE/0.9% NACL/PF 50 MG/5 ML SYRINGE IV ONE (06:53)
[2020-12-15] MEDS ORDERED: fentaNYL (PF) 50 MCG/ML 2 ML AMP ONE ×2 (06:53)
[2020-12-15] MEDS ORDERED: LACTATED RINGERS 1,000 ML IV ONE ×2 (06:56)
[2020-12-15] MEDS ORDERED: ceFAZolin 3,000 MG in SODIUM CHLORIDE 0.9% IRRIGATIO 3,000 ML IRRIGATION ONE (06:56)
--- NOTE | 2020-12-15 06:56 | P.PN ---
Subjective Progress Note Date: 12/15/20 Principal diagnosis: LEFT knee pain Pt s/e this am. She is slightly sedated at this time. She is able to answer questions and is in room currently. Denies any f/c overnight. She is still having alot of emesis. States pain in the knee that seems to be the same but she has not been up yet. Denies any other symptoms. Objective - Vital Signs Vital signs: Vital Signs Temp 97.5 F L 12/15/20 02:20 Pulse 68 12/15/20 02:20 Resp 15 12/15/20 02:20 BP 113/71 12/15/20 02:20 Pulse Ox 94 L 12/15/20 02:20 Intake & Output 12/14/20 12/14/20 12/15/20 06:59 18:59 06:59 Output Total 250 Balance -250 Weight 104.326 kg 100.7 kg Output: Emesis 250 Other: Voiding Method Toilet Bedside Commode # Voids 2 # Bowel Movements 2 - Exam AOX3 NAD in room with her Non septic appearing Slightly sedated due to morphine Minimal pain in knee currently Obese body habitus, edema in LE b/l with venous stasis appearance No erythema around knee, no ecchymosis, mild 1+ effusion of LEFT knee No pain with passive motion of the LEFT knee, inability to bear weight at this time however Currently having coffee ground emesis LLE exam: L knee is without Erythema, calor, edema. There is a mild 1+ effusion. There is no pain with palpation of the knee. There is no pain with patellar ballotment The knee is stable to varus valgus ant/post drawer testing SILT L2-S1 5/5 EHL, FHL, SLR, KF, KE, DF, PF 2/4 DP/PT pulses compartments soft and compressive There is no pain with movement of the LEFT hip or ankle There is FROM of all major joints of the LE b/l There is FROM of all major joints of the UE b/l without pain UE exams benign with full strength all major muscle groups and palpable distal pulses with soft compartments - Labs CBC & Chem 7: 12/14/20 23:37 12/14/20 15:29 Labs: Abnormal Lab Results - Last 24 Hours (Table) 12/14/20 12/14/20 12/14/20 Range/Units 15:29 15:29 17:18 WBC 16.4 H (3.8-10.6) k/uL RBC 2.50 L (3.80-5.40) m/uL Hgb 7.6 L (11.4-16.0) gm/dL Hct 23.9 L (34.0-46.0) % RDW 17.3 H (11.5-15.5) % Plt Count 580 H (150-450) k/uL Neutrophils # 11.9 H (1.3-7.7) k/uL Monocytes # 1.1 H (0-1.0) k/uL Sodium 133 L (137-145) mmol/L Potassium 5.5 H (3.5-5.1) mmol/L Carbon Dioxide 21 L (22-30) mmol/L BUN 58 H (7-17) mg/dL Creatinine 5.94 H (0.52-1.04) mg/dL Glucose 114 H (74-99) mg/dL POC Glucose (mg/dL) 129 H (75-99) mg/dL 12/14/20 12/14/20 Range/Units 20:51 23:37 WBC 18.3 H (3.8-10.6) k/uL RBC 2.35 L (3.80-5.40) m/uL Hgb 7.2 L (11.4-16.0) gm/dL Hct 23.1 L (34.0-46.0) % RDW 17.1 H (11.5-15.5) % Plt Count 526 H (150-450) k/uL Neutrophils # 13.5 H (1.3-7.7) k/uL Monocytes # 1.2 H (0-1.0) k/uL Sodium (137-145) mmol/L Potassium (3.5-5.1) mmol/L Carbon Dioxide (22-30) mmol/L BUN (7-17) mg/dL Creatinine (0.52-1.04) mg/dL Glucose (74-99) mg/dL POC Glucose (mg/dL) 134 H (75-99) mg/dL Microbiology - Last 24 Hours (Table) 12/14/20 18:20 Gram Stain - Preliminary Knee - Left Body Fluid Culture - Preliminary Assessment and Plan Assessment: Pt s/e on the hospital floor 65 yo female with LEFT knee pain, Possible Septic arthrits one positive culture after aspiration, possible contaminant. Staph A. Previous synovial count does not reflect septic arthritis. Pt was previously dx with pneumonia and is ESRD which can elevate SED and CRP as well. WBC count is again high here today, however it is lower than previously. Pt has hx of gout in RIGHT knee, never in LEFT. Previous aspiration did not show crystals. Continued pain in LEFT knee and positive cultures Multiple medical comorbidities Plan: -Appreciate consult -Trend labs sed and crp -Pain control, light on the morphine and narcotics -Medical management -GI/DVT ppx -NPO confirmed Had a long discussion with patient and . At this time she is vomiting coffee ground like material and has just had dinner. Her aspirate is more concerning this time as it is cloudy as compared to her previous aspirate which was not. She is having pain, but states it is much better than it was before. Due to the readmission, positive cultures and continued pain I do feel that we should lavage this knee. Due to her high risk with medical comorbids, recent and continuing pneumonia, emesis, recent meal we need to wait until morning for lavage. I explained the risks and benefits of this and the procedure at length to the and patient. They agreed and pt stated her lungs and kidneys are bad and that she would rather wait until it is more safe for surgery. We will board her first thing in the AM for arthroscopic lavage of the LEFT knee with cultures. They were comfortable with this. She is currently on vancomycin and this can continue Aspiration results still inconclusive from cell count. NO organisms seen. WBC 24k (however this is doubled), PMN 95% and 5 PHPF. OR THIS MORNING
[2020-12-15] MEDS ORDERED: BUPIVACAINE (PF) 0.5% 30 ML VIAL SQ ONE ×2 (07:47→07:54)
[2020-12-15] MEDS ORDERED: SODIUM CHLORIDE 0.9% 250 ML IV ONE (07:47)
[2020-12-15] MEDS ORDERED: ONDANSETRON 4 MG TAB PO PRN (08:35)
[2020-12-15] MEDS ORDERED: CALCIUM ACETATE 667 MG TAB PO PRN (08:35)
[2020-12-15] MEDS ORDERED: ALBUTEROL NEBULIZED 2.5 MG/3 ML INHALATION PRN (08:35)
[2020-12-15] MEDS ORDERED: FUROSEMIDE 80 MG TAB PO PRN (08:35)
[2020-12-15] MEDS ORDERED: HYDROcodone/APAP 7.5-325MG 1 EACH TAB PO PRN (08:35)
[2020-12-15] MEDS ORDERED: LIDOCAINE-PRILOCAINE 2.5-2.5% CREAM 5 GM TUBE TOPICAL PRN (08:35)
[2020-12-15] MEDS ORDERED: GABAPENTIN 300 MG CAP PO PRN (08:35)
[2020-12-15 08:53] LABS: Glucose,Whole Blood 227 mg/dL (75-99)
[2020-12-15] MEDS ORDERED: INSULIN ASPART (NovoLOG) 100 UNIT/ML VIAL SQ ONE (08:57)
[2020-12-15] MEDS ORDERED: PANTOPRAZOLE 40 MG/10 ML VIAL IVP SCH (09:00)
[2020-12-15] MEDS: PANTOPRAZOLE 40 MG/10 ML VIAL IVP SCH ×2 (10:55→22:09)
[2020-12-15] MEDS: ZINC SULFATE 220 MG CAP PO SCH ×2 (10:55→22:09)
[2020-12-15] MEDS: hydrALAZINE HCL 50 MG TAB PO SCH ×3 (10:55→22:00)
--- NOTE | 2020-12-15 11:00 | P.NPCON ---
History of Present Illness - Reason for Consult end stage renal disease - History of Present Illness Reason for consultation: End-stage renal disease History of present illness: Patient is a 65-year-old female seen in renal consultation for end-stage renal disease. She is maintained on hemodialysis on Sunday schedule. Patient presented with left knee pain and was just discharged from the hospital 2 days ago. She was advised to come back to the hospital after the fluid culture came back positive for staph aureus. She underwent lavage of the knee this morning. She is currently quite sleepy. present at bedside. No fever. Blood pressure stable. Scheduled for dialysis today. She is maintained on IV antibiotics. Infectious disease also consulted. She also had coffee ground emesis last night after dinner 4 with GI has been consulted. Hemoglobin 7.2 as of last night. Last admission was in the range of 8.2-9.6. Vital signs are stable. General: The patient appeared well nourished and normally developed. HEENT: Head exam is unremarkable. Neck is without jugular venous distension. LUNGS: Breath sounds decreased. HEART: Rate and Rhythm are regular. ABDOMEN: Soft, nontender. Obese. EXTREMITITES: 2+ edema. Chronic lymphedema. Past Medical History Past Medical History: Diabetes Mellitus, Dialysis, Deep Vein Thrombosis (DVT), Hypertension, Renal Disease Additional Past Medical History / Comment(s): ESRD with hemodialysis t,, sun, IDDM type II, past DKA, neuropathy bilateral feet/legs and alittle in hands, "fast heart rate"-had cardiac ablation, lymphedema bilateral lower legs/feet, gout R knee, mineral bone disease, IBS, R sided Mustafa's palsey.skin CA on back removed. covid 19 in October History of Any Multi-Drug Resistant Organisms: None Reported Past Surgical History: Appendectomy, Cardiac Ablation, Section, Cholecystectomy, Tubal Ligation Additional Past Surgical History / Comment(s): bilateral cataract removal with lens implants, C-sections, bilateral benign breast biopsies, AV graft left arm done 06-23-16 for dialysis, colonoscopy. Past Anesthesia/Blood Transfusion Reactions: Motion Sickness, Postoperative Nausea & Vomiting (PONV) Past Psychological History: No Psychological Hx Reported Smoking Status: Never smoker Past Alcohol Use History: None Reported Past Drug Use History: None Reported - Past Family History Father Family Medical History: Cancer, Diabetes Mellitus Additional Family Medical History / Comment(s): Father had prostate cancer. Mother Family Medical History: Cancer Additional Family Medical History / Comment(s): Mother had breast cancer. Medications and Allergies Home Medications Medication Instructions Recorded Confirmed Type Gabapentin [Neurontin] 300 mg PO DAILY PRN 06/27/16 12/14/20 History Aspirin [Adult Low Dose Aspirin EC] 81 mg PO DAILY 09/16/16 12/14/20 History amLODIPine [Norvasc] 10 mg PO HS 11/29/16 12/14/20 History Insulin Glargine,Hum.rec.anlog 21 unit SQ HS 07/08/18 12/14/20 History [Basaglar Kwikpen U-100] Lidocaine-Prilocaine Cream [Emla 1 applic TOPICAL TUTHSA PRN 05/19/20 12/14/20 History Cream 2.5%/2.5%] Ondansetron HCl [Zofran] 4 mg PO Q8H PRN 05/19/20 12/14/20 History Calcium Acetate [PhosLo] 1,334 mg PO AC-BID 07/12/20 12/14/20 History Calcium Acetate [PhosLo] 667 mg PO DAILY PRN 07/12/20 12/14/20 History INSULIN ASPART (NovoLOG) [NovoLOG See Protocol SQ AC-TID 07/12/20 12/14/20 History (formulary)] HYDROcodone/APAP 7.5-325MG [[place] 1 tablet PO Q6H PRN 07/13/20 12/14/20 History 7.5-325] hydrALAZINE HCL [Apresoline] 50 mg PO TID #90 tab 07/16/20 12/14/20 Rx Furosemide [Lasix] 80 mg PO BID PRN 11/01/20 12/14/20 History Albuterol Sulfate [Ventolin HFA] 2 puff INHALATION Q6H PRN 30 Days 11/05/20 12/14/20 Rx #1 inhaler Apixaban [Eliquis] 5 mg PO BID 12/08/20 12/14/20 History INSULIN ASPART (NovoLOG) [NovoLOG 12 unit SQ AC-TID 12/08/20 12/14/20 History (formulary)] Zinc 50 mg PO BID 12/08/20 12/14/20 History Colchicine [Colcrys] 0.6 mg PO BID #60 each 12/13/20 12/14/20 Rx Allergies Allergy/AdvReac Type Severity Reaction Status Date / Time sulfamethoxazole AdvReac Nausea & Verified 12/14/20 17:46 [From Bactrim] Vomiting,dyspnea trimethoprim [From Bactrim] AdvReac Nausea & Verified 12/14/20 17:46 Vomiting,dyspnea Physical Exam Vitals: Vital Signs Temp Pulse Pulse Resp BP BP BP 12/15/20 09:30 44 L 16 12/15/20 09:00 44 L 16 106/51 12/15/20 08:45 53 L 16 110/55 12/15/20 08:30 52 L 16 107/53 12/15/20 08:21 96.9 F L 45 L 20 111/55 12/15/20 02:20 97.5 F L 68 15 113/71 12/14/20 19:20 98.6 F 71 16 133/69 12/14/20 18:07 98.4 F 76 17 166/66 12/14/20 17:01 98.4 F 12/14/20 16:46 75 18 144/65 12/14/20 14:42 98.2 F 78 16 143/85 Pulse Ox 12/15/20 09:30 12/15/20 09:00 97 12/15/20 08:45 99 12/15/20 08:30 100 12/15/20 08:21 98 12/15/20 02:20 94 L 12/14/20 19:20 96 12/14/20 18:07 97 12/14/20 17:01 12/14/20 16:46 92 L 12/14/20 14:42 98 Intake and Output 12/14/20 12/15/20 12/15/20 22:59 06:59 14:59 Intake Total 201 50 Output Total 100 150 10 Balance -100 51 40 Intake: IV 201 50 Output: Emesis 100 150 Estimated Blood Loss 10 Other: Voiding Method Toilet Toilet Bedside Commode Bedside Commode # Voids 2 2 # Bowel Movements 2 2 Weight 104.326 kg 100.7 kg Results - Lab Results Most recent lab results Calcium 8.9 mg/dL (8.4-10.2) 12/14/20 15:29 12/14/20 23:37 12/14/20 15:29 Assessment and Plan Plan: Assessment: 1. End-stage renal disease maintained on hemodialysis on Sunday schedule. 2. Left knee septic arthritis with culture positive for staph aureus status post lavage morning. 3. Anemia of chronic kidney disease. Rule out iron deficiency. Questionable GI bleed. 4. Chronic kidney disease mineral bone disease maintained on PhosLo. 5. Diabetes mellitus. 6. Hypertension with chronic kidney disease. Controlled. Plan: Hemodialysis today. Follow-up cultures. Hold antihypertensives for systolic blood pressure less than 120. Check iron studies. Add Aranesp. GI and infectious disease recommendations pending. Thank you for the consultation. I will continue to follow the patient with you during her hospital stay.
[2020-12-15 11:18] LABS: Anisocytosis Slight; Basophils # (A) 0.1 k/uL (0-0.2); Basophils % (A) 1 %; Eosinophils # (A) 0.1 k/uL (0-0.7); Eosinophils % (A) 0 %; HCT 23.5 % (34.0-46.0); Hypochromasia Marked; Lymphocytes # (A) 1.2 k/uL (1.0-4.8); Lymphocytes % (A) 9 %; Macrocytosis Marked; Monocytes # (A) 0.8 k/uL (0-1.0); Monocytes % (A) 6 %; Neutrophils # (A) 11.4 k/uL (1.3-7.7); Neutrophils % (A) 83 %; Platelet Count 441 k/uL (150-450); RBC 2.12 m/uL (3.80-5.40); RDW 17.4 % (11.5-15.5); WBC 13.7 k/uL (3.8-10.6)
[2020-12-15 11:21] LABS: HGB 6.3 gm/dL (11.4-16.0); MCV 111.1 fL (80.0-100.0)
[2020-12-15 11:33] LABS: Glucose,Whole Blood 223 mg/dL (75-99)
[2020-12-15] MEDS ORDERED: DARBEPOETIN ALFA 40 MCG/0.4 ML SYRINGE SQ SCH (12:00)
[2020-12-15] MEDS ORDERED: traMADol 50 MG TAB PO PRN (12:50)
[2020-12-15] MEDS: INSULIN ASPART (NovoLOG) 100 UNIT/ML VIAL SQ SCH ×2 (13:03→17:46)
--- NOTE | 2020-12-15 13:48 | P.HPIM ---
History of Present Illness 65-year-old pleasant female who was discharged from my service after she was evaluated and treated for septic arthritis which was subsequently ruled out because of the white blood cell count in the synovial fluid which was only 10,00 0. Although day after discharge the patient the cultures from the synovial fluid came back positive for staph aureus which is MSSA I called the patient back patient came back and was readmitted. Patient does have lymphedema bilateral lower extremity his patient is hemodialysis dependent. Patient was started on Rocephin and vancomycin vancomycin will be discontinued Rocephin will be continued infectious disease and arthritic surgery was good consulted and patient already had incision and drainage and irrigation of the left knee. Patient also had an episode of hematemesis because of which anti-coagulation and aspirin are being held and patient was started on Protonix. Review of Systems REVIEW OF SYSTEMS: CONSTITUTIONAL: No fever, no malaise, no fatigue. HEENT: No recent visual problems or hearing problems. Denied any sore throat. CARDIOVASCULAR: No chest pain, orthopnea, PND, no palpitations, no syncope. PULMONARY: No shortness of breath, no cough, no hemoptysis. GASTROINTESTINAL: No diarrhea, no nausea, no vomiting, no abdominal pain. NEUROLOGICAL: No headaches, no weakness, no numbness. HEMATOLOGICAL: Denies any bleeding or petechiae. GENITOURINARY: Denies any burning micturition, frequency, or urgency. MUSCULOSKELETAL/RHEUMATOLOGICAL: Denies any joint pain, swelling, or any muscle pain. ENDOCRINE: Denies any polyuria or polydipsia. The rest of the 14-point review of systems is negative. Past Medical History Past Medical History: Diabetes Mellitus, Dialysis, Deep Vein Thrombosis (DVT), H ypertension, Renal Disease Additional Past Medical History / Comment(s): ESRD with hemodialysis t,th, sat, IDDM type II, past DKA, neuropathy bilateral feet/legs and alittle in hands, "fast heart rate"-had cardiac ablation, lymphedema bilateral lower legs/feet, gout R knee, mineral bone disease, IBS, R sided Mustafa's palsey.skin CA on back removed. covid 19 in October History of Any Multi-Drug Resistant Organisms: None Reported Past Surgical History: Appendectomy, Cardiac Ablation, Section, Cholecystectomy, Tubal Ligation Additional Past Surgical History / Comment(s): bilateral cataract removal with lens implants, C-sections, bilateral benign breast biopsies, AV graft left arm done 06-23-16 for dialysis, colonoscopy. Past Anesthesia/Blood Transfusion Reactions: Motion Sickness, Postoperative Nausea & Vomiting (PONV) Past Psychological History: No Psychological Hx Reported Smoking Status: Never smoker Past Alcohol Use History: None Reported Past Drug Use History: None Reported - Past Family History Father Family Medical History: Cancer, Diabetes Mellitus Additional Family Medical History / Comment(s): Father had prostate cancer. Mother Family Medical History: Cancer Additional Family Medical History / Comment(s): Mother had breast cancer. Medications and Allergies Home Medications Medication Instructions Recorded Confirmed Type Gabapentin [Neurontin] 300 mg PO DAILY PRN 06/27/16 12/14/20 History Aspirin [Adult Low Dose Aspirin EC] 81 mg PO DAILY 09/16/16 12/14/20 History amLODIPine [Norvasc] 10 mg PO HS 11/29/16 12/14/20 History Insulin Glargine,Hum.rec.anlog 21 unit SQ HS 07/08/18 12/14/20 History [Vin Rollins U-100] Lidocaine-Prilocaine Cream [Emla 1 applic TOPICAL TUTHSA PRN 05/19/20 12/14/20 History Cream 2.5%/2.5%] Ondansetron HCl [Zofran] 4 mg PO Q8H PRN 05/19/20 12/14/20 History Calcium Acetate [PhosLo] 1,334 mg PO AC-BID 07/12/20 12/14/20 History Calcium Acetate [PhosLo] 667 mg PO DAILY PRN 07/12/20 12/14/20 History INSULIN ASPART (NovoLOG) [NovoLOG See Protocol SQ AC-TID 07/12/20 12/14/20 History (formulary)] HYDROcodone/APAP 7.5-325MG [[place] 1 tablet PO Q6H PRN 07/13/20 12/14/20 History 7.5-325] hydrALAZINE HCL [Apresoline] 50 mg PO TID #90 tab 07/16/20 12/14/20 Rx Furosemide [Lasix] 80 mg PO BID PRN 11/01/20 12/14/20 History Albuterol Sulfate [Ventolin HFA] 2 puff INHALATION Q6H PRN 30 Days 11/05/20 12/14/20 Rx #1 inhaler Apixaban [Eliquis] 5 mg PO BID 12/08/20 12/14/20 History INSULIN ASPART (NovoLOG) [NovoLOG 12 unit SQ AC-TID 12/08/20 12/14/20 History (formulary)] Zinc 50 mg PO BID 12/08/20 12/14/20 History Colchicine [Colcrys] 0.6 mg PO BID #60 each 12/13/20 12/14/20 Rx Allergies Allergy/AdvReac Type Severity Reaction Status Date / Time sulfamethoxazole AdvReac Nausea & Verified 12/14/20 17:46 [From Bactrim] Vomiting,dyspnea trimethoprim [From Bactrim] AdvReac Nausea & Verified 12/14/20 17:46 Vomiting,dyspnea Physical Exam Vitals: Vital Signs Temp Pulse Pulse Resp BP BP BP 12/15/20 09:30 44 L 16 12/15/20 09:00 44 L 16 106/51 12/15/20 08:45 53 L 16 110/55 12/15/20 08:30 52 L 16 107/53 12/15/20 08:21 96.9 F L 45 L 20 111/55 12/15/20 02:20 97.5 F L 68 15 113/71 12/14/20 19:20 98.6 F 71 16 133/69 12/14/20 18:07 98.4 F 76 17 166/66 12/14/20 17:01 98.4 F 12/14/20 16:46 75 18 144/65 12/14/20 14:42 98.2 F 78 16 143/85 Pulse Ox 12/15/20 09:30 12/15/20 09:00 97 12/15/20 08:45 99 12/15/20 08:30 100 12/15/20 08:21 98 12/15/20 02:20 94 L 12/14/20 19:20 96 12/14/20 18:07 97 12/14/20 17:01 12/14/20 16:46 92 L 12/14/20 14:42 98 Intake and Output 12/14/20 12/15/20 12/15/20 22:59 06:59 14:59 Intake Total 201 50 Output Total 100 150 10 Balance -100 51 40 Intake: IV 201 50 Output: Emesis 100 150 Estimated Blood Loss 10 Other: Voiding Method Toilet Toilet Bedside Commode Bedside Commode # Voids 2 2 # Bowel Movements 2 2 Weight 104.326 kg 100.7 kg PHYSICAL EXAMINATION: GENERAL: The patient is alert and oriented x3, not in any acute distress. Well developed, well nourished. HEENT: Pupils are round and equally reacting to light. EOMI. No scleral icterus. No conjunctival pallor. Normocephalic, atraumatic. No pharyngeal erythema. No thyromegaly. CARDIOVASCULAR: S1 and S2 present. No murmurs, rubs, or gallops. PULMONARY: Chest is clear to auscultation, no wheezing or crackles. ABDOMEN: Soft, nontender, nondistended, normoactive bowel sounds. No palpable organomegaly. MUSCULOSKELETAL: No joint swelling or deformity. Left knee is wrapped with an Zain bandage EXTREMITIES: No cyanosis, clubbing, bilateral lower extremity edema NEUROLOGICAL: Gross neurological examination did not reveal any focal deficits. SKIN: No rashes. Results CBC & Chem 7: 12/15/20 10:30 12/14/20 15:29 Labs: Abnormal Lab Results - Last 24 Hours (Table) 12/14/20 12/14/20 12/14/20 Range/Units 15:29 15:29 17:18 WBC 16.4 H (3.8-10.6) k/uL RBC 2.50 L (3.80-5.40) m/uL Hgb 7.6 L (11.4-16.0) gm/dL Hct 23.9 L (34.0-46.0) % MCV (80.0-100.0) fL MCHC (31.0-37.0) g/dL RDW 17.3 H (11.5-15.5) % Plt Count 580 H (150-450) k/uL Neutrophils # 11.9 H (1.3-7.7) k/uL Monocytes # 1.1 H (0-1.0) k/uL Macrocytosis Sodium 133 L (137-145) mmol/L Potassium 5.5 H (3.5-5.1) mmol/L Carbon Dioxide 21 L (22-30) mmol/L BUN 58 H (7-17) mg/dL Creatinine 5.94 H (0.52-1.04) mg/dL Glucose 114 H (74-99) mg/dL POC Glucose (mg/dL) 129 H (75-99) mg/dL 12/14/20 12/14/20 12/15/20 Range/Units 20:51 23:37 08:51 WBC 18.3 H (3.8-10.6) k/uL RBC 2.35 L (3.80-5.40) m/uL Hgb 7.2 L (11.4-16.0) gm/dL Hct 23.1 L (34.0-46.0) % MCV (80.0-100.0) fL MCHC (31.0-37.0) g/dL RDW 17.1 H (11.5-15.5) % Plt Count 526 H (150-450) k/uL Neutrophils # 13.5 H (1.3-7.7) k/uL Monocytes # 1.2 H (0-1.0) k/uL Macrocytosis Sodium (137-145) mmol/L Potassium (3.5-5.1) mmol/L Carbon Dioxide (22-30) mmol/L BUN (7-17) mg/dL Creatinine (0.52-1.04) mg/dL Glucose (74-99) mg/dL POC Glucose (mg/dL) 134 H 227 H (75-99) mg/dL 12/15/20 12/15/20 Range/Units 10:30 11:31 WBC 13.7 H (3.8-10.6) k/uL RBC 2.12 L (3.80-5.40) m/uL Hgb 6.3 L* (11.4-16.0) gm/dL Hct 23.5 L (34.0-46.0) % MCV 111.1 H D (80.0-100.0) fL MCHC 27.0 L (31.0-37.0) g/dL RDW 17.4 H (11.5-15.5) % Plt Count (150-450) k/uL Neutrophils # 11.4 H (1.3-7.7) k/uL Monocytes # (0-1.0) k/uL Macrocytosis Marked A Sodium (137-145) mmol/L Potassium (3.5-5.1) mmol/L Carbon Dioxide (22-30) mmol/L BUN (7-17) mg/dL Creatinine (0.52-1.04) mg/dL Glucose (74-99) mg/dL POC Glucose (mg/dL) 223 H (75-99) mg/dL Microbiology - Last 24 Hours (Table) 12/15/20 07:46 Anaerobic Culture - Preliminary Knee - Left 12/15/20 07:46 Wound Culture - Preliminary Knee - Left 12/15/20 07:46 Wound Culture - Preliminary Knee - Left 12/15/20 07:46 Anaerobic Culture - Preliminary Knee - Left 12/14/20 18:20 Gram Stain - Preliminary Knee - Left Body Fluid Culture - Preliminary Thrombosis Risk Factor Assmnt - Choose All That Apply Each Factor Represents 1 point: Obesity (BMI >25), Serious lung disease incl. pneumonia (< 1month), Swollen legs (current) Other Risk Factors: Yes Each Risk Factor Represents 2 Points: Age 61-74 years, Arthroscopic surgery, Major surgery Thrombosis Risk Factor Assessment Total Risk Factor Score: 9 Thrombosis Risk Factor Assessment Level: High Risk Assessment and Plan Plan: -Left knee septic arthritis patient is status post incision and drainage and irrigation of the left knee patient will be continue on Rocephin and vancomycin was discussed uterine as patient has MSSA infectious disease will evaluated the patient. -Possible upper GI bleed holding off anticoagulation patient was started on Protonix gastro-oncology was consulted -Acute blood loss anemia from upper GI bleed. -End-stage renal disease or dialysis dependent nephrology evaluated the patient patient will continue on her regular from her dialysis sessions -Type 2 diabetes mellitus -History of DVT in the past -Hypertension
[2020-12-15] MEDS: ONDANSETRON 4 MG/2 ML VIAL IVP PRN (14:15)
[2020-12-15] MEDS: MORPHINE SULFATE 4 MG/ML SYRINGE IV PRN (14:21)
[2020-12-15] MEDS ORDERED: VANCOMYCIN 1,750 MG in SODIUM CHLORIDE 0.9% 500 ML 500 ML IVPB ONE (16:00)
[2020-12-15 17:01] LABS: Glucose,Whole Blood 199 mg/dL (75-99)
[2020-12-15] MEDS: CALCIUM ACETATE 667 MG TAB PO SCH (17:44)
[2020-12-15 18:13] LABS: Reticulocyte % 2.7 % (0.5-2.0)
--- NOTE | 2020-12-15 19:03 | CONS ---
CONSULTATION DATE OF SERVICE: 12/15/2020 REASON FOR CONSULTATION: Left knee septic arthritis. HISTORY OF PRESENT ILLNESS: The patient is a 65-year-old female with a past medical history significant for end-stage renal disease, on hemodialysis, who was recently admitted to this facility with a fever. She was complaining of pain to the left knee area. Patient did have aspirate of the left knee with white count only 10,000 and the patient's cultures were negative at 72 hours. The patient was subsequently discharged home. After the patient was discharged, the culture from the left knee aspirate came back positive with Staph aureus. The lab never called the floor to alert us of this positive culture. The patient was called in to come back to the hospital. As per discussion with the patient's , the patient was still having some pain to the left knee area; however, she was able to get by by using the walker. There was no history of any fever. Since presentation to the hospital the patient has been afebrile. She did have a white count of 18.3 with a left shift. The patient had a repeat aspirate of the left knee which came back cloudy with 24,000 nucleated cells. The patient was taken to the OR this morning and is status post washout of the left knee. Infectious Disease was consulted for further management of antibiotic therapy. REVIEW OF SYSTEMS: Positive points have been mentioned in the HPI. Rest of the systems are negative. PAST MEDICAL HISTORY: End-stage renal disease, on hemodialysis, diabetes mellitus, DVT, hypertension. PAST SURGICAL HISTORY: Appendectomy, cardiac ablation, , cholecystectomy, tubal ligation. SOCIAL HISTORY: No history of smoking, drinking or drug use. FAMILY HISTORY: Mother with history of breast cancer. Father with history of diabetes and prostate cancer. ALLERGIES: SULFA. MEDICATIONS: The patient is currently on [place], Ventolin, Norvasc, PhosLo, Rocephin 2 grams daily, Lasix, Neurontin, heparin, hydralazine, NovoLog, Levemir, Narcan, Zofran, Protonix, Ultram and zinc sulfate. PHYSICAL EXAMINATION: Blood pressure 106/51 with a pulse of 53, temperature 96.9. She is 97% on 2 L nasal cannula. General description is an elderly female lying in bed in no distress. No tachypnea or accessory muscle of respiration use. HEENT: Examination shows slight pallor. No scleral icterus. Oral mucosa membrane is dry. NECK: Trachea is central. No thyromegaly. LUNGS: Unlabored breathing. Clear to auscultation anteriorly. No wheeze or crackle. HEART: S1, S2. Regular rate and rhythm. ABDOMEN: Soft. No tenderness. No guarding or rigidity. Left knee is currently dressed, with no drainage on the dressing. NEUROLOGIC: The patient is slightly sleepy, lethargic after anesthesia. Orientation could not be determined. LABS: Hemoglobin 6.3, white count 13.7. Admission white count was 18.3. BUN of 58, creatinine 5.94. Synovial fluid is positive. Carbajal PCR was negative. OR cultures pending. Cultures done on her last admission came back positive with MSSA. DIAGNOSTIC IMPRESSION AND PLAN: Patient with MSSA left knee septic arthritis in this patient who is status post washout of the left knee. She did not have any positive blood culture on her last admission. PLAN: 1. Rocephin 2 grams IV piggyback daily; to continue. 2. Will discuss with Nephrology if IV vancomycin can be given to her through dialysis for 4 weeks, so we can avoid placing a PICC line, and outpatient antibiotic therapy at the bedside. All his questions and concerns were answered. MMODL / IJN: [id number] /
[2020-12-15 21:25] LABS: Glucose,Whole Blood 154 mg/dL (75-99)
[2020-12-15] MEDS: INSULIN DETEMIR (LEVEMIR) 100 UNIT/ML SYR SQ SCH (21:52)
[2020-12-15] MEDS: amLODIPine 10 MG TAB PO SCH (22:09)
--- NOTE | 2020-12-15 23:17 | CONS ---
CONSULTATION DATE OF DICTATION: 12/15/2020 REASON FOR CONSULTATION: Anemia and coffee-ground emesis. HISTORY OF PRESENT ILLNESS: The patient is a 65-year-old pleasant white female with history of end-stage renal disease, on hemodialysis, who was admitted to the hospital with septic arthritis involving the left knee. She presented with swelling of the left knee and underwent arthrocentesis done this afternoon and was started on broad-spectrum antibiotics. While in the hospital, she developed coffee-ground emesis yesterday and threw up two times and subsequently dropped her hemoglobin to 6.3 g/dL. She is going to be receiving blood transfusion during her hemodialysis that is scheduled for this evening. Patient presently on broad-spectrum antibiotics with Rocephin and vancomycin for Staph aureus septic arthritis. The patient denies any abdominal pain. She reports no melena, no prior history of peptic ulcer disease, no recent NSAID use. PAST MEDICAL HISTORY: Significant for end-stage renal disease, on hemodialysis, history of diabetes mellitus, hypertension, DVT in the past, COVID-19 infection in October of this year. PAST SURGICAL HISTORY: Appendectomy, cardiac ablation, , cholecystectomy, tubal ligation, bilateral cataract surgery, AV graft in left arm. SOCIAL HISTORY: No smoking. No alcohol use. FAMILY HISTORY: Father diabetes mellitus. Mother with breast cancer. MEDICATIONS: Medications at home include Neurontin, Norvasc, aspirin, insulin, Zofran, PhosLo, NovoLog, hydralazine, Lasix, Ventolin, Eliquis, colchicine. ALLERGIES: BACTRIM. REVIEW OF SYSTEMS: CARDIOPULMONARY: No chest pain or shortness of breath. GENITOURINARY: No dysuria or hematuria. MUSCULOSKELETAL: Unremarkable other than severe septic arthritis of the left knee, for which she just underwent arthrocentesis this morning. NEUROLOGY: Unremarkable. PSYCHIATRY: Unremarkable. ENT/VISION: Unremarkable. CONSTITUTIONAL: No recent weight loss. No fever, chills, night sweats. HEMATOLOGY: Unremarkable other than anemia. PHYSICAL EXAMINATION: She appears comfortable. Vital signs show a blood pressure of 132/58, pulse rate 51, temperature 97.7. HEENT examination unremarkable. Conjunctivae pink. Sclerae anicteric. Oral cavity no lesions. NECK: No JVD or lymph node enlargement. CHEST: Clear to auscultation. HEART: Regular rate and rhythm. ABDOMEN: Soft. There was very minimal tenderness in the epigastric area. Bowel sounds are positive. No organomegaly. EXTREMITIES: No pedal edema. Severe swelling of the left knee joint noted. NEUROLOGIC: Alert and oriented x3. No focal deficits. LABS: Labs from yesterday: WBC 18.3, hemoglobin 7.2. Today hemoglobin is 6.3, platelets 525, BUN 58, creatinine 5.94. AST, ALT, T-bilirubin and alkaline phosphatase are within normal limits. IMPRESSION: 1. Nausea, vomiting, coffee-ground emesis x2 yesterday, dropped hemoglobin from 7.2 to 6.3 g/dL. Rule out peptic ulcer disease. 2. End-stage renal disease, on hemodialysis. 3. Septic arthritis involving the left knee, presently on broad-spectrum antibiotics. 4. End-stage renal disease, on hemodialysis. 5. Longstanding history of diabetes mellitus. RECOMMENDATIONS: 1. Continue with Protonix 40 mg twice daily. 2. Agree with one unit of PRBC transfusion. 3. Continue with hemodialysis. 4. Repeat CBC in the morning. 5. Will proceed with an upper endoscopy tomorrow. Discussed with the patient risks, benefits and complications, and she is agreeable to it. In the meantime, continue to hold Eliquis. Will follow with you closely. Thank you for this consultation. MMODL / IJN: [id number] /
[2020-12-16] MEDS: HEPARIN SODIUM,PORCINE 5,000 UNIT/ML 1 ML VIAL SQ SCH ×3 (00:12→15:23)
[2020-12-16] MEDS: ONDANSETRON 4 MG/2 ML VIAL IVP PRN ×2 (00:21→15:27)
[2020-12-16] MEDS: MORPHINE SULFATE 4 MG/ML SYRINGE IV PRN (01:10)
[2020-12-16 02:03] LABS: % Iron Saturation 93.06 (12.00-45.00); Ferritin >16500.0 ng/mL (22.0-322.0); Iron 161 ug/dL (50-170); Total Iron Binding Capacity 173 ug/dL (228-460)
[2020-12-16 07:04] LABS: Glucose,Whole Blood 213 mg/dL (75-99)
[2020-12-16 07:15] LABS: Anisocytosis Slight; Basophils # (A) 0.1 k/uL (0-0.2); Basophils % (A) 1 %; Eosinophils # (A) 0.1 k/uL (0-0.7); Eosinophils % (A) 1 %; HCT 22.6 % (34.0-46.0); Hypochromasia Marked; Lymphocytes # (A) 1.5 k/uL (1.0-4.8); Lymphocytes % (A) 12 %; MCH 30.4 pg (25.0-35.0); MCHC 29.6 g/dL (31.0-37.0); Macrocytosis Moderate; Mean Platelet Volume 7.7; Monocytes # (A) 0.5 k/uL (0-1.0); Monocytes % (A) 4 %; Neutrophils # (A) 9.8 k/uL (1.3-7.7); Neutrophils % (A) 82 %; Platelet Count 427 k/uL (150-450); RDW 17.4 % (11.5-15.5)
[2020-12-16 07:24] LABS: HGB 6.7 gm/dL (11.4-16.0); MCV 102.5 fL (80.0-100.0)
[2020-12-16] MEDS: INSULIN ASPART (NovoLOG) 100 UNIT/ML VIAL SQ SCH ×3 (08:14→17:21)
--- NOTE | 2020-12-16 08:41 | P.PN ---
Subjective Progress Note Date: 12/16/20 Principal diagnosis: LEFT knee pain Patient seen and examined this morning. Slightly sedated. States she has soreness in her knee but better. She has not been up and about. Denies fevers or chills. She still having emesis at this time. Denies any chest pain or shortness of breath currently. Objective - Vital Signs Vital signs: Vital Signs Temp 98.5 F 12/16/20 08:00 Pulse 76 12/16/20 08:00 Resp 16 12/16/20 08:00 BP 154/66 12/16/20 08:00 Pulse Ox 91 L 12/16/20 08:00 Intake & Output 12/15/20 12/16/20 12/16/20 18:59 06:59 18:59 Intake Total 450 300 Output Total 10 2300 Balance 440 -2000 Weight 99.3 kg Intake: IV 50 Intake, IV Titration 150 Amount Sodium Chloride 0.9% 1, 150 000 ml @ 75 mls/hr IV . [id number] ELIF Rx#:[id number] Oral 250 Hemodialysis 300 Output: Hemodialysis 2300 Estimated Blood Loss 10 Other: Voiding Method Toilet Toilet Bedside Commode Bedside Commode # Voids 2 # Bowel Movements 2 1 - Exam AOX3 NAD in room with her Non septic appearing Slightly sedated due to morphine Minimal pain in knee currently Obese body habitus, edema in LE b/l with venous stasis appearance No erythema around knee, no ecchymosis, mild 1+ effusion of LEFT knee No pain with passive motion of the LEFT knee, inability to bear weight at this time however Currently having emesis LLE exam: L knee is without Erythema, calor, edema. There is no pain with palpation of the knee. There is no pain with patellar ballotment The knee is stable to varus valgus ant/post drawer testing SILT L2-S1 5/5 EHL, FHL, SLR, KF, KE, DF, PF 2/4 DP/PT pulses compartments soft and compressive Dressing is clean dry and intact There is no pain with movement of the LEFT hip or ankle There is FROM of all major joints of the LE b/l There is FROM of all major joints of the UE b/l without pain UE exams benign with full strength all major muscle groups and palpable distal pulses with soft compartments - Labs CBC & Chem 7: 12/16/20 05:31 12/14/20 15:29 Labs: Abnormal Lab Results - Last 24 Hours (Table) 12/15/20 12/15/20 12/15/20 Range/Units 08:51 10:30 11:31 WBC 13.7 H (3.8-10.6) k/uL RBC 2.12 L (3.80-5.40) m/uL Hgb 6.3 L* (11.4-16.0) gm/dL Hct 23.5 L (34.0-46.0) % MCV 111.1 H D (80.0-100.0) fL MCHC 27.0 L (31.0-37.0) g/dL RDW 17.4 H (11.5-15.5) % Neutrophils # 11.4 H (1.3-7.7) k/uL Macrocytosis Marked A Retic Count (0.5-2.0) % POC Glucose (mg/dL) 227 H 223 H (75-99) mg/dL TIBC (228-460) ug/dL % Saturation (12.00-45.00) Ferritin (22.0-322.0) ng/mL Crossmatch 12/15/20 12/15/20 12/15/20 Range/Units 16:59 17:30 17:30 WBC (3.8-10.6) k/uL RBC (3.80-5.40) m/uL Hgb (11.4-16.0) gm/dL Hct (34.0-46.0) % MCV (80.0-100.0) fL MCHC (31.0-37.0) g/dL RDW (11.5-15.5) % Neutrophils # (1.3-7.7) k/uL Macrocytosis Retic Count 2.7 H (0.5-2.0) % POC Glucose (mg/dL) 199 H (75-99) mg/dL TIBC 173 L (228-460) ug/dL % Saturation 93.06 H (12.00-45.00) Ferritin >01229.0 H (22.0-322.0) ng/mL Crossmatch 12/15/20 12/15/20 12/16/20 Range/Units 17:30 21:23 05:31 WBC 12.0 H (3.8-10.6) k/uL RBC 2.20 L (3.80-5.40) m/uL Hgb 6.7 L* (11.4-16.0) gm/dL Hct 22.6 L (34.0-46.0) % MCV 102.5 H D (80.0-100.0) fL MCHC 29.6 L (31.0-37.0) g/dL RDW 17.4 H (11.5-15.5) % Neutrophils # 9.8 H (1.3-7.7) k/uL Macrocytosis Retic Count (0.5-2.0) % POC Glucose (mg/dL) 154 H (75-99) mg/dL TIBC (228-460) ug/dL % Saturation (12.00-45.00) Ferritin (22.0-322.0) ng/mL Crossmatch See Detail 12/16/20 Range/Units 07:02 WBC (3.8-10.6) k/uL RBC (3.80-5.40) m/uL Hgb (11.4-16.0) gm/dL Hct (34.0-46.0) % MCV (80.0-100.0) fL MCHC (31.0-37.0) g/dL RDW (11.5-15.5) % Neutrophils # (1.3-7.7) k/uL Macrocytosis Retic Count (0.5-2.0) % POC Glucose (mg/dL) 213 H (75-99) mg/dL TIBC (228-460) ug/dL % Saturation (12.00-45.00) Ferritin (22.0-322.0) ng/mL Crossmatch Microbiology - Last 24 Hours (Table) 12/15/20 07:46 Gram Stain - Preliminary Knee - Left Wound Culture - Preliminary 12/15/20 07:46 Gram Stain - Preliminary Knee - Left Wound Culture - Preliminary 12/14/20 15:29 Blood Culture - Preliminary Blood No Growth after 24 hours 12/14/20 18:20 Gram Stain - Preliminary Knee - Left Body Fluid Culture - Preliminary 12/15/20 07:46 Anaerobic Culture - Preliminary Knee - Left 02/17/21 07:46 Anaerobic Culture - Preliminary Knee - Left Assessment and Plan Assessment: Pt s/e on the hospital floor 65 yo female postop day 1 left knee arthroscopic lavage and debridement Possible GI bleed Multiple medical comorbidities Plan: -Medical management, ID management -Continue IV antibiotics -Await cultures -Trend labs sed and crp -Pain control, light on the morphine and narcotics -GI/DVT ppx -Condition appropriate diet -We will follow. Currently orthopedically stable
[2020-12-16] MEDS: CALCIUM ACETATE 667 MG TAB PO SCH ×2 (08:44→17:21)
[2020-12-16] MEDS: PANTOPRAZOLE 40 MG/10 ML VIAL IVP SCH ×2 (09:39→20:52)
[2020-12-16] MEDS ORDERED: PROPOFOL 10 MG/ML 20 ML VIAL IV ONE (10:36)
[2020-12-16] MEDS ORDERED: LIDOCAINE 1% INJ 10MG/ML (20 ML MDV) ONE (10:36)
[2020-12-16 10:37] LABS: African American GFR (CKD) 11.7 (60.0-200.0); Anion Gap 21.3 mmol/L (4.00-12.00); Calcium 8.7 mg/dL (8.7-10.3); Carbon Dioxide 17.7 mmol/L (21.6-31.8); Non-African American GFR(CKD) 10.1 (60.0-200.0); Potassium 5.3 mmol/L (3.5-5.5)
[2020-12-16] MEDS ORDERED: IV FLUID CONTINUATION 500 ML IV ONE (10:40)
[2020-12-16] MEDS ORDERED: SODIUM BICARB 8.4% 50 ML SYR (1 MEQ/ML) IV STA (11:03)
--- NOTE | 2020-12-16 11:06 | P.PN ---
Subjective Patient is seen in follow-up for end-stage renal disease. She is maintained on hemodialysis on Sunday schedule. Completed dialysis yesterday with near 2 L ultrafiltration. Currently sitting up in chair. Hemoglobin low at 6.7. She is awaiting blood transfusion. No active bleeding. Vital signs are stable. General: The patient appeared well nourished and normally developed. HEENT: Head exam is unremarkable. Neck is without jugular venous distension. LUNGS: Breath sounds decreased. HEART: Rate and Rhythm are regular. ABDOMEN: Soft, nontender. EXTREMITITES: Chronic lymphedema. Objective - Vital Signs Vital signs: Vital Signs Temp 98.5 F 12/16/20 08:00 Pulse 76 12/16/20 08:00 Resp 16 12/16/20 08:00 BP 154/66 12/16/20 08:00 Pulse Ox 91 L 12/16/20 08:00 Intake & Output 12/15/20 12/16/20 12/16/20 18:59 06:59 18:59 Intake Total 450 300 Output Total 10 2300 Balance 440 -2000 Weight 99.3 kg Intake: IV 50 Intake, IV Titration 150 Amount Sodium Chloride 0.9% 1, 150 000 ml @ 75 mls/hr IV . [id number] [facility] Rx#:[id number] Oral 250 Hemodialysis 300 Output: Hemodialysis 2300 Estimated Blood Loss 10 Other: Voiding Method Toilet Toilet Bedside Commode Bedside Commode # Voids 2 # Bowel Movements 2 1 - Labs CBC & Chem 7: 12/16/20 05:31 12/16/20 05:31 Labs: Abnormal Lab Results - Last 24 Hours (Table) 12/15/20 12/15/20 12/15/20 Range/Units 10:30 11:31 16:59 WBC 13.7 H (3.8-10.6) k/uL RBC 2.12 L (3.80-5.40) m/uL Hgb 6.3 L* (11.4-16.0) gm/dL Hct 23.5 L (34.0-46.0) % MCV 111.1 H D (80.0-100.0) fL MCHC 27.0 L (31.0-37.0) g/dL RDW 17.4 H (11.5-15.5) % Neutrophils # 11.4 H (1.3-7.7) k/uL Macrocytosis Marked A Retic Count (0.5-2.0) % Sodium (135-145) mmol/L Chloride (96-109) mmol/L Carbon Dioxide (21.6-31.8) mmol/L Anion Gap (4.00-12.00) mmol/L BUN (9.0-27.0) mg/dL Creatinine (0.6-1.5) mg/dL Est GFR (CKD-EPI)AfAm (60.0-200.0) Est GFR (CKD-EPI)NonAf (60.0-200.0) BUN/Creatinine Ratio (12.00-20.00) Ratio Glucose (70-110) mg/dL POC Glucose (mg/dL) 223 H 199 H (75-99) mg/dL TIBC (228-460) ug/dL % Saturation (12.00-45.00) Ferritin (22.0-322.0) ng/mL Crossmatch 12/15/20 12/15/20 12/15/20 Range/Units 17:30 17:30 17:30 WBC (3.8-10.6) k/uL RBC (3.80-5.40) m/uL Hgb (11.4-16.0) gm/dL Hct (34.0-46.0) % MCV (80.0-100.0) fL MCHC (31.0-37.0) g/dL RDW (11.5-15.5) % Neutrophils # (1.3-7.7) k/uL Macrocytosis Retic Count 2.7 H (0.5-2.0) % Sodium (135-145) mmol/L Chloride (96-109) mmol/L Carbon Dioxide (21.6-31.8) mmol/L Anion Gap (4.00-12.00) mmol/L BUN (9.0-27.0) mg/dL Creatinine (0.6-1.5) mg/dL Est GFR (CKD-EPI)AfAm (60.0-200.0) Est GFR (CKD-EPI)NonAf (60.0-200.0) BUN/Creatinine Ratio (12.00-20.00) Ratio Glucose (70-110) mg/dL POC Glucose (mg/dL) (75-99) mg/dL TIBC 173 L (228-460) ug/dL % Saturation 93.06 H (12.00-45.00) Ferritin >21958.0 H (22.0-322.0) ng/mL Crossmatch See Detail 12/15/20 12/16/20 12/16/20 Range/Units 21:23 05:31 05:31 WBC 12.0 H (3.8-10.6) k/uL RBC 2.20 L (3.80-5.40) m/uL Hgb 6.7 L* (11.4-16.0) gm/dL Hct 22.6 L (34.0-46.0) % MCV 102.5 H D (80.0-100.0) fL MCHC 29.6 L (31.0-37.0) g/dL RDW 17.4 H (11.5-15.5) % Neutrophils # 9.8 H (1.3-7.7) k/uL Macrocytosis Retic Count (0.5-2.0) % Sodium 134 L (135-145) mmol/L Chloride 95 L (96-109) mmol/L Carbon Dioxide 17.7 L (21.6-31.8) mmol/L Anion Gap 21.30 H (4.00-12.00) mmol/L BUN 43.0 H (9.0-27.0) mg/dL Creatinine 4.3 H (0.6-1.5) mg/dL Est GFR (CKD-EPI)AfAm 11.7 L (60.0-200.0) Est GFR (CKD-EPI)NonAf 10.1 L (60.0-200.0) BUN/Creatinine Ratio 10.00 L (12.00-20.00) Ratio Glucose 194 H (70-110) mg/dL POC Glucose (mg/dL) 154 H (75-99) mg/dL TIBC (228-460) ug/dL % Saturation (12.00-45.00) Ferritin (22.0-322.0) ng/mL Crossmatch 12/16/20 Range/Units 07:02 WBC (3.8-10.6) k/uL RBC (3.80-5.40) m/uL Hgb (11.4-16.0) gm/dL Hct (34.0-46.0) % MCV (80.0-100.0) fL MCHC (31.0-37.0) g/dL RDW (11.5-15.5) % Neutrophils # (1.3-7.7) k/uL Macrocytosis Retic Count (0.5-2.0) % Sodium (135-145) mmol/L Chloride (96-109) mmol/L Carbon Dioxide (21.6-31.8) mmol/L Anion Gap (4.00-12.00) mmol/L BUN (9.0-27.0) mg/dL Creatinine (0.6-1.5) mg/dL Est GFR (CKD-EPI)AfAm (60.0-200.0) Est GFR (CKD-EPI)NonAf (60.0-200.0) BUN/Creatinine Ratio (12.00-20.00) Ratio Glucose (70-110) mg/dL POC Glucose (mg/dL) 213 H (75-99) mg/dL TIBC (228-460) ug/dL % Saturation (12.00-45.00) Ferritin (22.0-322.0) ng/mL Crossmatch Microbiology - Last 24 Hours (Table) 12/15/20 07:46 Gram Stain - Preliminary Knee - Left Wound Culture - Preliminary 12/15/20 07:46 Gram Stain - Preliminary Knee - Left Wound Culture - Preliminary 12/14/20 15:29 Blood Culture - Preliminary Blood No Growth after 24 hours 12/14/20 18:20 Gram Stain - Preliminary Knee - Left Body Fluid Culture - Preliminary 12/15/20 07:46 Anaerobic Culture - Preliminary Knee - Left 12/15/20 07:46 Anaerobic Culture - Preliminary Knee - Left Assessment and Plan Plan: Assessment: 1. End-stage renal disease maintained on hemodialysis on Sunday schedule. 2. Left knee septic arthritis with culture positive for staph aureus status post lavage December 15. 3. Anemia of chronic kidney disease. Iron replete. Maintained on Aranesp. Awaiting blood transfusion. ? GI bleed - EGD today. 4. Chronic kidney disease mineral bone disease maintained on PhosLo. 5. Diabetes mellitus. 6. Hypertension with chronic kidney disease. Controlled. 7. Metabolic acidosis secondary to chronic kidney disease. Expect improvement postdialysis. Plan: Hemodialysis tomorrow. Follow-up cultures. Hold antihypertensives for systolic blood pressure less than 120. 2 A sodium bicarbonate IV push today. Blood transfusion once available.
--- NOTE | 2020-12-16 11:06 | P.PCN ---
Date of Procedure: 12/16/20 Description of Procedure: BRIEF HISTORY: Patient is a 65-year-old female with history of end-stage renal disease, hospitalized for septic arthritis. Patient had a fall in her hemoglobin down to 6.3 requiring blood transfusion and had reports of coffee-ground emesis. Esophagogastroduodenoscopy is planned for further evaluation. PROCEDURE PERFORMED: Esophagogastroduodenoscopy with biopsy and gold probe ablation. PREOPERATIVE DIAGNOSIS: Coffee-ground emesis, anemia. ESTIMATED BLOOD LOSS: Minimal. IV sedation per anesthesia. PROCEDURE: After informed consent was obtained, the patient was brought into the endoscopy unit. IV sedation was administered by Anesthesia under continuous monitoring. Initially the Olympus GIF-190 video endoscope was inserted into the mouth. Esophagus intubated without any difficulty. It was gradually advanced into the stomach and duodenum and carefully examined. The bulb and the second part of the duodenum appeared normal, with biopsies taken. The scope at this time was withdrawn to the stomach, adequately insufflated with air, and upon careful examination, mucosa of the antrum, body, cardia and the fundus appeared normal except for some mild scattered erythema in the antrum and body suggestive of mild gastritis with biopsies taken. There was also a punctate area in the gastric body with minimal oozing of blood suggestive of a AVMs/angiectasia which was treated with cold probe ablation with hemostasis achieved. The scope was th en withdrawn into the esophagus. The GE junction was located at 39 cm from the incisors, and a small 1 cm hiatal hernia noted. The esophagus appeared normal. There were no erosions or ulcerations seen and the patient tolerated the procedure well. IMPRESSION: 1. Gastric angiectasia/AVM treated with gold probe ablation therapy with hemostasis achieved. 2. Mild gastritis. 3. Small hiatal hernia. 4. Biopsies of the duodenum and antrum and body. RECOMMENDATIONS: The findings of this examination were discussed with the patient. Okay for full liquid diet, patient will be advanced tomorrow if stable dietary modifications including consistent carbohydrate and renal diet ordered. Continue to monitor hemoglobin and hematocrit and transfuse as needed. Continue Protonix twice daily. Continue other medical management as per primary team.
[2020-12-16] MEDS: hydrALAZINE HCL 50 MG TAB PO SCH ×3 (11:24→20:53)
[2020-12-16] MEDS: ZINC SULFATE 220 MG CAP PO SCH ×2 (11:24→20:53)
[2020-12-16 11:56] LABS: Glucose,Whole Blood 260 mg/dL (75-99)
--- NOTE | 2020-12-16 15:43 | P.PN ---
Subjective Progress Note Date: 12/16/20 65-year-old pleasant female who was discharged from my service after she was evaluated and treated for septic arthritis which was subsequently ruled out because of the white blood cell count in the synovial fluid which was only 10,000. Although day after discharge the patient the cultures from the synovial fluid came back positive for staph aureus which is MSSA I called the patient back patient came back and was readmitted. Patient does have lymphedema bilateral lower extremity his patient is hemodialysis dependent. Patient was started on Rocephin and vancomycin vancomycin will be discontinued Rocephin will be continued infectious disease and arthritic surgery was good consulted and patient already had incision and drainage and irrigation of the left knee. Patient also had an episode of hematemesis because of which anti-coagulation and aspirin are being held and patient was started on Protonix. 12/16/2020 Patient is seen this morning and hemoglobin was found to be 6.7 and awaiting to receive a unit of PRBCs. Patient apparently has antibodies and blood was unavailable and awaiting to arrive from [place]. Per nursing staff the blood will be here sometime this evening. Patient is also hemodialysis dependent and nephrology following. Patient does receive treatments on Sunday//Sunday and will continue. Patient will have dialysis tomorrow. Patient was scheduled to undergo EGD with GI today and reports shows gastric angiectasia/AVM treated with gold probe ablation therapy with hemostasis achieved, mild gastritis, small hiatal hernia, and biopsies obtained of the duo denum and antrum and body and patient will follow-up outpatient for biopsy results. Patient to continue with Protonix twice daily and full liquids with the possibility of advancing tomorrow as tolerated. Review of systems: Constitutional: No reports of fatigue, fever, or chills Cardiovascular: No reports of chest pain or palpitations Respiratory: No reports of shortness of breath or cough GI: No reports of nausea, vomiting, or diarrhea : No reports of dysuria or retention Neurovascular: No reports of weakness or numbness All medications have been reviewed Objective - Vital Signs Vital signs: Vital Signs Temp 97.8 F 12/16/20 14:00 Pulse 85 12/16/20 14:00 Resp 16 12/16/20 14:00 BP 159/71 12/16/20 14:00 Pulse Ox 92 L 12/16/20 14:00 Intake & Output 12/15/20 12/16/20 12/16/20 18:59 06:59 18:59 Intake Total 450 300 100 Output Total 10 2300 Balance 440 -2000 100 Weight 99.3 kg Intake: IV 50 100 Intake, IV Titration 150 Amount Sodium Chloride 0.9% 1, 150 000 ml @ 75 mls/hr IV . [id number] [facility] Rx#:[id number] Oral 250 Hemodialysis 300 Output: Hemodialysis 2300 Estimated Blood Loss 10 Other: Voiding Method Toilet Toilet Bedside Commode Bedside Commode # Voids 2 1 # Bowel Movements 2 1 - Exam GENERAL: The patient is alert and oriented x3, not in any acute distress. Well developed, well nourished. HEENT: Pupils are round and equally reacting to light. EOMI. No scleral icterus. No conjunctival pallor. Normocephalic, atraumatic. No pharyngeal erythema. No thyromegaly. CARDIOVASCULAR: S1 and S2 present. No murmurs, rubs, or gallops. PULMONARY: Chest is clear to auscultation, no wheezing or crackles. ABDOMEN: Soft, nontender, nondistended, normoactive bowel sounds. No palpable organomegaly. MUSCULOSKELETAL: No joint swelling or deformity. Left knee is wrapped with an Zain bandage EXTREMITIES: No cyanosis, clubbing, bilateral lower extremity edema NEUROLOGICAL: Gross neurological examination did not reveal any focal deficits. SKIN: No rashes. - Labs CBC & Chem 7: 12/16/20 05:31 12/16/20 05:31 Labs: Abnormal Lab Results - Last 24 Hours (Table) 12/15/20 12/15/20 12/15/20 Range/Units 16:59 17:30 17:30 WBC (3.8-10.6) k/uL RBC (3.80-5.40) m/uL Hgb (11.4-16.0) gm/dL Hct (34.0-46.0) % MCV (80.0-100.0) fL MCHC (31.0-37.0) g/dL RDW (11.5-15.5) % Neutrophils # (1.3-7.7) k/uL Retic Count 2.7 H (0.5-2.0) % Sodium (135-145) mmol/L Chloride (96-109) mmol/L Carbon Dioxide (21.6-31.8) mmol/L Anion Gap (4.00-12.00) mmol/L BUN (9.0-27.0) mg/dL Creatinine (0.6-1.5) mg/dL Est GFR (CKD-EPI)AfAm (60.0-200.0) Est GFR (CKD-EPI)NonAf (60.0-200.0) BUN/Creatinine Ratio (12.00-20.00) Ratio Glucose (70-110) mg/dL POC Glucose (mg/dL) 199 H (75-99) mg/dL TIBC 173 L (228-460) ug/dL % Saturation 93.06 H (12.00-45.00) Ferritin >10486.0 H (22.0-322.0) ng/mL Crossmatch 12/15/20 12/15/20 12/16/20 Range/Units 17:30 21:23 05:31 WBC (3.8-10.6) k/uL RBC (3.80-5.40) m/uL Hgb (11.4-16.0) gm/dL Hct (34.0-46.0) % MCV (80.0-100.0) fL MCHC (31.0-37.0) g/dL RDW (11.5-15.5) % Neutrophils # (1.3-7.7) k/uL Retic Count (0.5-2.0) % Sodium 134 L (135-145) mmol/L Chloride 95 L (96-109) mmol/L Carbon Dioxide 17.7 L (21.6-31.8) mmol/L Anion Gap 21.30 H (4.00-12.00) mmol/L BUN 43.0 H (9.0-27.0) mg/dL Creatinine 4.3 H (0.6-1.5) mg/dL Est GFR (CKD-EPI)AfAm 11.7 L (60.0-200.0) Est GFR (CKD-EPI)NonAf 10.1 L (60.0-200.0) BUN/Creatinine Ratio 10.00 L (12.00-20.00) Ratio Glucose 194 H (70-110) mg/dL POC Glucose (mg/dL) 154 H (75-99) mg/dL TIBC (228-460) ug/dL % Saturation (12.00-45.00) Ferritin (22.0-322.0) ng/mL Crossmatch See Detail 12/16/20 12/16/20 12/16/20 Range/Units 05:31 07:02 11:54 WBC 12.0 H (3.8-10.6) k/uL RBC 2.20 L (3.80-5.40) m/uL Hgb 6.7 L* (11.4-16.0) gm/dL Hct 22.6 L (34.0-46.0) % MCV 102.5 H D (80.0-100.0) fL MCHC 29.6 L (31.0-37.0) g/dL RDW 17.4 H (11.5-15.5) % Neutrophils # 9.8 H (1.3-7.7) k/uL Retic Count (0.5-2.0) % Sodium (135-145) mmol/L Chloride (96-109) mmol/L Carbon Dioxide (21.6-31.8) mmol/L Anion Gap (4.00-12.00) mmol/L BUN (9.0-27.0) mg/dL Creatinine (0.6-1.5) mg/dL Est GFR (CKD-EPI)AfAm (60.0-200.0) Est GFR (CKD-EPI)NonAf (60.0-200.0) BUN/Creatinine Ratio (12.00-20.00) Ratio Glucose (70-110) mg/dL POC Glucose (mg/dL) 213 H 260 H (75-99) mg/dL TIBC (228-460) ug/dL % Saturation (12.00-45.00) Ferritin (22.0-322.0) ng/mL Crossmatch Microbiology - Last 24 Hours (Table) 12/15/20 07:46 Gram Stain - Preliminary Knee - Left Wound Culture - Preliminary 12/15/20 07:46 Gram Stain - Preliminary Knee - Left Wound Culture - Preliminary 12/14/20 15:29 Blood Culture - Preliminary Blood No Growth after 24 hours 12/14/20 18:20 Gram Stain - Preliminary Knee - Left Body Fluid Culture - Preliminary 12/15/20 07:46 Anaerobic Culture - Preliminary Knee - Left 12/15/20 07:46 Anaerobic Culture - Preliminary Knee - Left Assessment and Plan Assessment: -Left knee septic arthritis patient is status post incision and drainage and irrigation of the left knee patient will be continue on Rocephin and vancomycin as patient has MSSA, infectious disease following patient will likely receive vancomycin with dialysis in the outpatient setting and this is being arranged with case management. -Possible upper GI bleed holding off anticoagulation patient was started on Protonix, GI following -Gastric angiectasia/AVM requiring gold probe ablation therapy for hemostasis as noted during EGD -Mild gastritis, small hiatal hernia as noted on EGD, biopsies obtained and patient will follow-up outpatient with GI -Acute blood loss anemia from upper GI bleed. Hemoglobin today is 6.7 and awaiting to receive a unit of PRBCs as patient has antibodies and awaiting blood to arrive from [place] sometime this evening. Will repeat CBC in the morning -End-stage renal disease or dialysis dependent nephrology following and will continue with Sunday/Sunday/Sunday -Type 2 diabetes mellitus -History of DVT in the past -Hypertension -GI prophylaxis: Protonix 40 mg twice daily
[2020-12-16 16:49] LABS: Glucose,Whole Blood 192 mg/dL (75-99)
[2020-12-16] MEDS: amLODIPine 10 MG TAB PO SCH (20:53)
[2020-12-16 20:57] LABS: Glucose,Whole Blood 206 mg/dL (75-99)
[2020-12-16] MEDS: INSULIN DETEMIR (LEVEMIR) 100 UNIT/ML SYR SQ SCH (21:10)
--- NOTE | 2020-12-16 23:16 | PN ---
PROGRESS NOTE DATE OF SERVICE: 12/16/2020 REASON FOR FOLLOWUP: Left knee MSSA septic arthritis. INTERVAL HISTORY: The patient is currently afebrile. Still complains of significant pain to the left knee area. The patient denies having any chest pain or shortness of breath or cough. No nausea, no vomiting, no abdominal pain or diarrhea. PHYSICAL EXAMINATION: Blood pressure 173/72 with a pulse of 82, temperature 97.4. She is 93% on room air. General description is an elderly female lying in bed in no distress. RESPIRATORY SYSTEM: Unlabored breathing. Clear to auscultation anteriorly. HEART: S1, S2. Regular rate and rhythm. ABDOMEN: Soft. No tenderness. LAB: Hemoglobin 6.7, white count 12, BUN of 43, creatinine 4.3. DIAGNOSTIC IMPRESSION AND PLAN: Patient with left knee septic arthritis, status post left knee washout. Previous culture positive for MSSA. The patient is covered with Rocephin 2 grams daily. Plan is for vancomycin, Pharmacy to dose, through dialysis for 4 weeks. Continue with supportive care. MMODL / IJN: [id number] /
[2020-12-17] MEDS: HEPARIN SODIUM,PORCINE 5,000 UNIT/ML 1 ML VIAL SQ SCH ×4 (00:04→23:54)
[2020-12-17] MEDS: ONDANSETRON 4 MG/2 ML VIAL IVP PRN ×2 (02:15→08:54)
[2020-12-17 06:41] LABS: Glucose,Whole Blood 67 mg/dL (75-99)
[2020-12-17 06:56] LABS: Glucose,Whole Blood 67 mg/dL (75-99)
[2020-12-17 07:17] LABS: Glucose,Whole Blood 78 mg/dL (75-99)
[2020-12-17] MEDS: hydrALAZINE HCL 50 MG TAB PO SCH ×3 (07:52→20:56)
[2020-12-17] MEDS: INSULIN ASPART (NovoLOG) 100 UNIT/ML VIAL SQ SCH ×3 (07:52→17:25)
[2020-12-17] MEDS: CALCIUM ACETATE 667 MG TAB PO SCH ×2 (08:01→19:44)
[2020-12-17] MEDS: PANTOPRAZOLE 40 MG/10 ML VIAL IVP SCH ×2 (08:05→19:43)
[2020-12-17] MEDS: ZINC SULFATE 220 MG CAP PO SCH ×2 (08:06→19:43)
[2020-12-17] MEDS ORDERED: TRIMETHOBENZAMIDE 100 MG/ML 2 ML VIAL IM PRN (08:14)
--- NOTE | 2020-12-17 09:16 | P.PN ---
Subjective Progress Note Date: 12/17/20 Principal diagnosis: LEFT knee pain Patient seen and examined she is seated up in bed eating breakfast doing fairly well. She states mild discomfort in her left knee uses a walker to get around but has been up and about. She denies any fevers or chills. She is still having some emesis but better. She denies chest pain or shortness of breath at this time. She denies any numbness or tingling or other issues at this time. Objective - Vital Signs Vital signs: Vital Signs Temp 97.5 F L 12/17/20 02:25 Pulse 55 L 12/17/20 02:25 Resp 16 12/17/20 02:25 BP 120/74 12/17/20 02:25 Pulse Ox 93 L 12/17/20 02:25 Intake & Output 12/16/20 12/17/20 12/17/20 18:59 06:59 18:59 Intake Total 100 310 Balance 100 310 Weight 100.5 kg Intake: IV 100 Blood Product 0 310 Rc As-1 Unit 0 310 [id number] Other: Voiding Method Toilet Bedside Commode # Voids 1 3 # Bowel Movements 3 - Exam AOX3 NAD in room with her Non septic appearing Slightly sedated due to morphine Minimal pain in knee currently Obese body habitus, edema in LE b/l with venous stasis appearance No erythema around knee, no ecchymosis, mild 1+ effusion of LEFT knee No pain with passive motion of the LEFT knee, increasing ability to bear weight at this time LLE exam: L knee is without Erythema, calor, edema. There is no pain with palpation of the knee. There is no pain with patellar ballotment The knee is stable to varus valgus ant/post drawer testing SILT L2-S1 5/5 EHL, FHL, SLR, KF, KE, DF, PF 2/4 DP/PT pulses compartments soft and compressive Dressing is clean dry and intact There is no pain with movement of the LEFT hip or ankle There is FROM of all major joints of the LE b/l There is FROM of all major joints of the UE b/l without pain UE exams benign with full strength all major muscle groups and palpable distal pulses with soft compartments - Labs CBC & Chem 7: 12/16/20 05:31 12/16/20 05:31 Labs: Abnormal Lab Results - Last 24 Hours (Table) 12/15/20 12/16/20 12/16/20 Range/Units 17:30 05:31 11:54 Sodium 134 L (135-145) mmol/L Chloride 95 L (96-109) mmol/L Carbon Dioxide 17.7 L (21.6-31.8) mmol/L Anion Gap 21.30 H (4.00-12.00) mmol/L BUN 43.0 H (9.0-27.0) mg/dL Creatinine 4.3 H (0.6-1.5) mg/dL Est GFR (CKD-EPI)AfAm 11.7 L (60.0-200.0) Est GFR (CKD-EPI)NonAf 10.1 L (60.0-200.0) BUN/Creatinine Ratio 10.00 L (12.00-20.00) Ratio Glucose 194 H (70-110) mg/dL POC Glucose (mg/dL) 260 H (75-99) mg/dL Crossmatch See Detail 12/16/20 12/16/20 12/17/20 Range/Units 16:47 20:55 06:39 Sodium (135-145) mmol/L Chloride (96-109) mmol/L Carbon Dioxide (21.6-31.8) mmol/L Anion Gap (4.00-12.00) mmol/L BUN (9.0-27.0) mg/dL Creatinine (0.6-1.5) mg/dL Est GFR (CKD-EPI)AfAm (60.0-200.0) Est GFR (CKD-EPI)NonAf (60.0-200.0) BUN/Creatinine Ratio (12.00-20.00) Ratio Glucose (70-110) mg/dL POC Glucose (mg/dL) 192 H 206 H 67 L (75-99) mg/dL Crossmatch 12/17/20 Range/Units 06:54 Sodium (135-145) mmol/L Chloride (96-109) mmol/L Carbon Dioxide (21.6-31.8) mmol/L Anion Gap (4.00-12.00) mmol/L BUN (9.0-27.0) mg/dL Creatinine (0.6-1.5) mg/dL Est GFR (CKD-EPI)AfAm (60.0-200.0) Est GFR (CKD-EPI)NonAf (60.0-200.0) BUN/Creatinine Ratio (12.00-20.00) Ratio Glucose (70-110) mg/dL POC Glucose (mg/dL) 67 L (75-99) mg/dL Crossmatch Microbiology - Last 24 Hours (Table) 12/14/20 15:29 Blood Culture - Preliminary Blood No Growth after 48 hours 12/15/20 07:46 Gram Stain - Preliminary Knee - Left Wound Culture - Preliminary 12/15/20 07:46 Gram Stain - Preliminary Knee - Left Wound Culture - Preliminary Assessment and Plan Assessment: Pt s/e on the hospital floor 65 yo female postop day 2 left knee arthroscopic lavage and debridement Possible GI bleed Multiple medical comorbidities Plan: -Medical management, ID management -Continue IV antibiotics -Await cultures -Trend labs sed and crp -Pain control, light on the morphine and narcotics -GI/DVT ppx -Condition appropriate diet -We will follow. Currently orthopedically stable
[2020-12-17 09:40] LABS: HCT 23.7 % (37.2-46.3); MCH 29.5 pg (27.0-32.0); MCHC 29.5 g/dL (32.0-37.0); Mean Platelet Volume 9.6 fL (9.5-12.2); Platelet Count 389 X 10*3/uL (140-440); RBC 2.37 X 10*6/uL (4.10-5.20); RDW 19.4 % (11.5-14.5); WBC 12.12 X 10*3/uL (4.50-10.00)
[2020-12-17 11:03] LABS: Anisocytosis (M) 2+; Basophils # (A) 0.07 X 10*3/uL (0.00-0.10); Basophils % (A) 0.6 %; Eosinophils # (A) 0.09 X 10*3/uL (0.04-0.35); Eosinophils % (A) 0.7 %; Lymphocytes # (A) 1.92 X 10*3/uL (0.90-5.00); Lymphocytes % (A) 15.8 %; Monocytes # (A) 1.54 X 10*3/uL (0.20-1.00); Monocytes % (A) 12.7 %; Neutrophils # (A) 8.23 X 10*3/uL (1.80-7.70)
--- NOTE | 2020-12-17 11:31 | P.PN ---
Subjective Patient is seen in follow-up for end-stage renal disease. She is maintained on hemodialysis on Sunday schedule. Scheduled for dialysis today. Currently sitting up in chair. Hemoglobin 7.0 today. No chest pain or shortness of breath. Vital signs are stable. General: The patient appeared well nourished and normally developed. HEENT: Head exam is unremarkable. Neck is without jugular venous distension. LUNGS: Breath sounds decreased. HEART: Rate and Rhythm are regular. ABDOMEN: Soft, nontender. EXTREMITITES: Chronic lymphedema. Objective - Vital Signs Vital signs: Vital Signs Temp 97.5 F L 12/17/20 02:25 Pulse 55 L 12/17/20 02:25 Resp 16 12/17/20 02:25 BP 120/74 12/17/20 02:25 Pulse Ox 93 L 12/17/20 02:25 Intake & Output 12/16/20 12/17/20 12/17/20 18:59 06:59 18:59 Intake Total 100 310 Balance 100 310 Weight 100.5 kg Intake: IV 100 Blood Product 0 310 Rc As-1 Unit 0 310 [id number] Other: Voiding Method Toilet Bedside Commode # Voids 1 3 # Bowel Movements 3 - Labs CBC & Chem 7: 12/17/20 06:31 12/16/20 05:31 Labs: Abnormal Lab Results - Last 24 Hours (Table) 12/15/20 12/16/20 12/16/20 Range/Units 17:30 11:54 16:47 WBC (4.50-10.00) X 10*3/uL RBC (4.10-5.20) X 10*6/uL Hgb (12.0-15.0) g/dL Hct (37.2-46.3) % MCV (80.0-97.0) fL MCHC (32.0-37.0) g/dL RDW (11.5-14.5) % Absolute Nucleated RBC (0.00-0.00) X 10*3/uL Immature Gran # (0.00-0.04) X 10*3/uL Neutrophils # (1.80-7.70) X 10*3/uL Monocytes # (0.20-1.00) X 10*3/uL NRBC/100 WBC Diff (0.0-0.0) /100 WBCS POC Glucose (mg/dL) 260 H 192 H (75-99) mg/dL Crossmatch See Detail 12/16/20 12/17/20 12/17/20 Range/Units 20:55 06:31 06:39 WBC 12.12 H (4.50-10.00) X 10*3/uL RBC 2.37 L (4.10-5.20) X 10*6/uL Hgb 7.0 L (12.0-15.0) g/dL Hct 23.7 L (37.2-46.3) % MCV 100.0 H (80.0-97.0) fL MCHC 29.5 L (32.0-37.0) g/dL RDW 19.4 H (11.5-14.5) % Absolute Nucleated RBC 0.04 H (0.00-0.00) X 10*3/uL Immature Gran # 0.27 H (0.00-0.04) X 10*3/uL Neutrophils # 8.23 H (1.80-7.70) X 10*3/uL Monocytes # 1.54 H (0.20-1.00) X 10*3/uL NRBC/100 WBC Diff 0.3 H (0.0-0.0) /100 WBCS POC Glucose (mg/dL) 206 H 67 L (75-99) mg/dL Crossmatch 12/17/20 Range/Units 06:54 WBC (4.50-10.00) X 10*3/uL RBC (4.10-5.20) X 10*6/uL Hgb (12.0-15.0) g/dL Hct (37.2-46.3) % MCV (80.0-97.0) fL MCHC (32.0-37.0) g/dL RDW (11.5-14.5) % Absolute Nucleated RBC (0.00-0.00) X 10*3/uL Immature Gran # (0.00-0.04) X 10*3/uL Neutrophils # (1.80-7.70) X 10*3/uL Monocytes # (0.20-1.00) X 10*3/uL NRBC/100 WBC Diff (0.0-0.0) /100 WBCS POC Glucose (mg/dL) 67 L (75-99) mg/dL Crossmatch Microbiology - Last 24 Hours (Table) 12/15/20 07:46 Gram Stain - Final Knee - Left Wound Culture - Final 12/15/20 07:46 Gram Stain - Final Knee - Left Wound Culture - Final 12/14/20 15:29 Blood Culture - Preliminary Blood No Growth after 48 hours Assessment and Plan Plan: Assessment: 1. End-stage renal disease maintained on hemodialysis on Sunday schedule. 2. Left knee septic arthritis with culture positive for staph aureus status post lavage December 15. 3. Anemia of chronic kidney disease. Iron replete. Maintained on Aranesp. Status post EGD yesterday which revealed gastric AVM status post ablation. 4. Chronic kidney disease mineral bone disease maintained on PhosLo. 5. Diabetes mellitus. 6. Hypertension with chronic kidney disease. Controlled. 7. Metabolic acidosis secondary to chronic kidney disease. Expect improvement postdialysis. Plan: Hemodialysis today. Follow-up cultures. Hold antihypertensives for systolic blood pressure less than 120. Monitor hemoglobin and transfuse as needed.
[2020-12-17 11:52] LABS: Glucose,Whole Blood 74 mg/dL (75-99)
[2020-12-17 12:13] LABS: Glucose,Whole Blood 78 mg/dL (75-99)
[2020-12-17] MEDS ORDERED: VANCOMYCIN IV PER PHARMACY 1 EACH MISC MISCELLANE PRN (13:25)
--- NOTE | 2020-12-17 13:47 | P.PN ---
Subjective Progress Note Date: 12/17/20 Principal diagnosis: Anemia and coffee-ground emesis Patient was seen and examined lying in bed. She states she had some nausea this morning, however denies any coffee-ground emesis. She denies any black stools or abdominal pain. She had no acute changes through the night, denies any fever or chills. Today she underwent an upper endoscopy which showed gastric angiectasia/AVM treated with cold probe ablation therapy with hemostasis achieved. Mild gastritis, small hiatal hernia with biopsies taken. Objective - Vital Signs Vital signs: Vital Signs Temp 97.5 F L 12/17/20 02:25 Pulse 55 L 12/17/20 02:25 Resp 16 12/17/20 02:25 BP 120/74 12/17/20 02:25 Pulse Ox 93 L 12/17/20 02:25 Intake & Output 12/16/20 12/17/20 12/17/20 18:59 06:59 18:59 Intake Total 100 310 Balance 100 310 Weight 100.5 kg Intake: IV 100 Blood Product 0 310 Rc As-1 Unit 0 310 [id number] Other: Voiding Method Toilet Bedside Commode # Voids 1 3 # Bowel Movements 3 - Exam General appearance: The patient is alert, oriented, appears in no acute distress. HET: Head is normocephalic and atraumatic. Conjunctiva pink. Sclera anicteric. Neck: Supple without lymphadenopathy. Abdomen: Soft, nontender, nondistended with bowel sounds. No guarding or rigidity. Extremities: Normal skin color and turgor. Left lower extremity with swelling. Skin: No rashes, no jaundice Neurological: No focal deficits. Alert and oriented 3. - Labs CBC & Chem 7: 12/17/20 06:31 12/16/20 05:31 Labs: Abnormal Lab Results - Last 24 Hours (Table) 12/15/20 12/16/20 12/16/20 Range/Units 17:30 05:31 11:54 WBC (4.50-10.00) X 10*3/uL RBC (4.10-5.20) X 10*6/uL Hgb (12.0-15.0) g/dL Hct (37.2-46.3) % MCV (80.0-97.0) fL MCHC (32.0-37.0) g/dL RDW (11.5-14.5) % Absolute Nucleated RBC (0.00-0.00) X 10*3/uL NRBC/100 WBC Diff (0.0-0.0) /100 WBCS Sodium 134 L (135-145) mmol/L Chloride 95 L (96-109) mmol/L Carbon Dioxide 17.7 L (21.6-31.8) mmol/L Anion Gap 21.30 H (4.00-12.00) mmol/L BUN 43.0 H (9.0-27.0) mg/dL Creatinine 4.3 H (0.6-1.5) mg/dL Est GFR (CKD-EPI)AfAm 11.7 L (60.0-200.0) Est GFR (CKD-EPI)NonAf 10.1 L (60.0-200.0) BUN/Creatinine Ratio 10.00 L (12.00-20.00) Ratio Glucose 194 H (70-110) mg/dL POC Glucose (mg/dL) 260 H (75-99) mg/dL Crossmatch See Detail 12/16/20 12/16/20 12/17/20 Range/Units 16:47 20:55 06:31 WBC 12.12 H (4.50-10.00) X 10*3/uL RBC 2.37 L (4.10-5.20) X 10*6/uL Hgb 7.0 L (12.0-15.0) g/dL Hct 23.7 L (37.2-46.3) % MCV 100.0 H (80.0-97.0) fL MCHC 29.5 L (32.0-37.0) g/dL RDW 19.4 H (11.5-14.5) % Absolute Nucleated RBC 0.04 H (0.00-0.00) X 10*3/uL NRBC/100 WBC Diff 0.3 H (0.0-0.0) /100 WBCS Sodium (135-145) mmol/L Chloride (96-109) mmol/L Carbon Dioxide (21.6-31.8) mmol/L Anion Gap (4.00-12.00) mmol/L BUN (9.0-27.0) mg/dL Creatinine (0.6-1.5) mg/dL Est GFR (CKD-EPI)AfAm (60.0-200.0) Est GFR (CKD-EPI)NonAf (60.0-200.0) BUN/Creatinine Ratio (12.00-20.00) Ratio Glucose (70-110) mg/dL POC Glucose (mg/dL) 192 H 206 H (75-99) mg/dL Crossmatch 12/17/20 12/17/20 Range/Units 06:39 06:54 WBC (4.50-10.00) X 10*3/uL RBC (4.10-5.20) X 10*6/uL Hgb (12.0-15.0) g/dL Hct (37.2-46.3) % MCV (80.0-97.0) fL MCHC (32.0-37.0) g/dL RDW (11.5-14.5) % Absolute Nucleated RBC (0.00-0.00) X 10*3/uL NRBC/100 WBC Diff (0.0-0.0) /100 WBCS Sodium (135-145) mmol/L Chloride (96-109) mmol/L Carbon Dioxide (21.6-31.8) mmol/L Anion Gap (4.00-12.00) mmol/L BUN (9.0-27.0) mg/dL Creatinine (0.6-1.5) mg/dL Est GFR (CKD-EPI)AfAm (60.0-200.0) Est GFR (CKD-EPI)NonAf (60.0-200.0) BUN/Creatinine Ratio (12.00-20.00) Ratio Glucose (70-110) mg/dL POC Glucose (mg/dL) 67 L 67 L (75-99) mg/dL Crossmatch Microbiology - Last 24 Hours (Table) 12/15/20 07:46 Gram Stain - Final Knee - Left Wound Culture - Final 12/15/20 07:46 Gram Stain - Final Knee - Left Wound Culture - Final 12/14/20 15:29 Blood Culture - Preliminary Blood No Growth after 48 hours Assessment and Plan (1) Coffee ground emesis Narrative/Plan: This is a 65-year-old female patient I'll in the hospital developed nausea and vomiting with coffee-ground emesis 2. She had a drop in her hemoglobin from 7.2-6.3. Need to rule out peptic ulcer disease or other etiology for upper GI bleed. Current Visit: No Status: Acute Code(s): K92.0 - HEMATEMESIS SNOMED Code(s): 79979628 (2) Anemia Current Visit: No Status: Acute Code(s): D64.9 - ANEMIA, UNSPECIFIED SNOMED Code(s): 082534413 (3) Nausea & vomiting Current Visit: No Status: Acute Code(s): R11.2 - NAUSEA WITH VOMITING, UNSPECIFIED SNOMED Code(s): 99315129 (4) End stage renal disease on dialysis Narrative/Plan: End-stage renal disease on hemodialysis, nephrology following closely. Patient gets hemodialysis Sunday. Current Visit: No Status: Chronic Code(s): N18.6 - END STAGE RENAL DISEASE; Z99.2 - DEPENDENCE ON RENAL DIALYSIS SNOMED Code(s): 198968165 (5) Diabetes Current Visit: No Status: Chronic Code(s): E11.9 - TYPE 2 DIABETES MELLITUS WITHOUT COMPLICATIONS SNOMED Code(s): 59759919 Plan: 1. Supportive care 2. Patient is status post 2 units of PRBC transfusion 3. Continue Protonix 40 mg twice daily 4. Patient is status post EGD 5. Repeat CBC daily transfuse for hemoglobin less than 7 6. Hemodialysis per nephrology 7. Made as to consistent carbohydrate/renal diet Thank you for this consultation, we will continue to follow Dr. Bishop I agree with the dictator's note, documented as a scribe by Jaki Francis.
[2020-12-17] MEDS ORDERED: VANCOMYCIN 1,750 MG in SODIUM CHLORIDE 0.9% 500 ML 500 ML IVPB ONE (14:00)
--- NOTE | 2020-12-17 14:05 | PN ---
PROGRESS NOTE DATE OF SERVICE: 12/17/2020 REASON FOR FOLLOWUP: Left knee septic arthritis, MSSA. INTERVAL HISTORY: The patient is currently afebrile. Patient is feeling better. Breathing comfortably. Overall pain and discomfort to the knee has improved. The patient is currently undergoing dialysis. Denies having any chest pain or cough. No abdominal pain. No diarrhea. PHYSICAL EXAMINATION: Blood pressure is 150/64, pulse 74, temperature 97.5. She is 99% on room air. General description is an elderly female lying in bed in no distress. RESPIRATORY SYSTEM: Unlabored breathing, clear to auscultation anteriorly. HEART: S1, S2. Regular rate and rhythm. ABDOMEN: Soft, no tenderness. LABS: White count 12.12. DIAGNOSTIC IMPRESSION AND PLAN: Patient with MSSA left knee septic arthritis. Antibiotic was switched to vancomycin, pharmacy to dose, total of 4 weeks so we can prevent PICC line and outpatient antibiotic therapy. Continue supportive care. MMODL / DUKEN: [id number] /
--- NOTE | 2020-12-17 15:26 | P.PN ---
Subjective Progress Note Date: 12/17/20 65-year-old pleasant female who was discharged from my service after she was evaluated and treated for septic arthritis which was subsequently ruled out because of the white blood cell count in the synovial fluid which was only 10,000. Although day after discharge the patient the cultures from the synovial fluid came back positive for staph aureus which is MSSA I called the patient back patient came back and was readmitted. Patient does have lymphedema bilateral lower extremity his patient is hemodialysis dependent. Patient was started on Rocephin and vancomycin vancomycin will be discontinued Rocephin will be continued infectious disease and arthritic surgery was good consulted and patient already had incision and drainage and irrigation of the left knee. Patient also had an episode of hematemesis because of which anti-coagulation and aspirin are being held and patient was started on Protonix. 12/16/2020 Patient is seen this morning and hemoglobin was found to be 6.7 and awaiting to receive a unit of PRBCs. Patient apparently has antibodies and blood was unavailable and awaiting to arrive from [facility]. Per nursing staff the blood will be here sometime this evening. Patient is also hemodialysis dependent and nephrology following. Patient does receive treatments on Sunday//Sunday and will continue. Patient will have dialysis tomorrow. Patient was scheduled to undergo EGD with GI today and reports shows gastric angiectasia/AVM treated with gold probe ablation therapy with hemostasis achieved, mild gastritis, small hiatal hernia, and biopsies obtained of the duo denum and antrum and body and patient will follow-up outpatient for biopsy results. Patient to continue with Protonix twice daily and full liquids with the possibility of advancing tomorrow as tolerated. 12/17/2020 Patient is seen in follow-up this morning and reportedly had a large dark maroon bowel movement last night and multiple episodes of stool in the C. diff was ordered and currently pending as patient has not had any further episodes of loose stools or bowel movements today. Patient did receive 1 unit of PRBC and repeat lab this morning was found to be 7.0. Patient will receive another unit of PRBC today. Patient also to receive dialysis today as she is normally scheduled for Sunday/Sunday/Sunday. Will repeat a.m. labs and monitor hemoglobin. Patient denies any further episodes of vomiting although continues to be nauseated at times and is relieved with Zofran. Patient is maintained on IV vancomycin and will be scheduled outpatient to continue to receive antibiotics with dialysis per infectious disease recommendations. Review of systems: Constitutional: No reports of fatigue, fever, or chills Cardiovascular: No reports of chest pain or palpitations Respiratory: No reports of shortness of breath or cough GI: reports intermittent nausea, no reports of vomiting, or diarrhea : No reports of dysuria or retention Neurovascular: No reports of weakness or numbness All medications have been reviewed Objective - Vital Signs Vital signs: Vital Signs Temp 97.5 F L 12/17/20 02:25 Pulse 55 L 12/17/20 02:25 Resp 16 12/17/20 02:25 BP 120/74 12/17/20 02:25 Pulse Ox 93 L 12/17/20 02:25 Intake & Output 12/16/20 12/17/20 12/17/20 18:59 06:59 18:59 Intake Total 100 310 Balance 100 310 Weight 100.5 kg Intake: IV 100 Blood Product 0 310 Rc As-1 Unit 0 310 [id number] Other: Voiding Method Toilet Bedside Commode # Voids 1 3 # Bowel Movements 3 - Exam GENERAL: The patient is alert and oriented x3, not in any acute distress. Well developed, well nourished. HEENT: Pupils are round and equally reacting to light. EOMI. No scleral icterus. No conjunctival pallor. Normocephalic, atraumatic. No pharyngeal erythema. No thyromegaly. CARDIOVASCULAR: S1 and S2 present. No murmurs, rubs, or gallops. PULMONARY: Chest is clear to auscultation, no wheezing or crackles. ABDOMEN: Soft, nontender, nondistended, normoactive bowel sounds. No palpable organomegaly. MUSCULOSKELETAL: No joint swelling or deformity. Left knee is wrapped with an Zain bandage EXTREMITIES: No cyanosis, clubbing, bilateral lower extremity edema, left knee dressing is dry and recently changed and sutures are intact NEUROLOGICAL: Gross neurological examination did not reveal any focal deficits. SKIN: No rashes. - Labs CBC & Chem 7: 12/17/20 06:31 12/16/20 05:31 Labs: Abnormal Lab Results - Last 24 Hours (Table) 12/15/20 12/16/20 12/16/20 Range/Units 17:30 05:31 11:54 Sodium 134 L (135-145) mmol/L Chloride 95 L (96-109) mmol/L Carbon Dioxide 17.7 L (21.6-31.8) mmol/L Anion Gap 21.30 H (4.00-12.00) mmol/L BUN 43.0 H (9.0-27.0) mg/dL Creatinine 4.3 H (0.6-1.5) mg/dL Est GFR (CKD-EPI)AfAm 11.7 L (60.0-200.0) Est GFR (CKD-EPI)NonAf 10.1 L (60.0-200.0) BUN/Creatinine Ratio 10.00 L (12.00-20.00) Ratio Glucose 194 H (70-110) mg/dL POC Glucose (mg/dL) 260 H (75-99) mg/dL Crossmatch See Detail 12/16/20 12/16/20 12/17/20 Range/Units 16:47 20:55 06:39 Sodium (135-145) mmol/L Chloride (96-109) mmol/L Carbon Dioxide (21.6-31.8) mmol/L Anion Gap (4.00-12.00) mmol/L BUN (9.0-27.0) mg/dL Creatinine (0.6-1.5) mg/dL Est GFR (CKD-EPI)AfAm (60.0-200.0) Est GFR (CKD-EPI)NonAf (60.0-200.0) BUN/Creatinine Ratio (12.00-20.00) Ratio Glucose (70-110) mg/dL POC Glucose (mg/dL) 192 H 206 H 67 L (75-99) mg/dL Crossmatch 12/17/20 Range/Units 06:54 Sodium (135-145) mmol/L Chloride (96-109) mmol/L Carbon Dioxide (21.6-31.8) mmol/L Anion Gap (4.00-12.00) mmol/L BUN (9.0-27.0) mg/dL Creatinine (0.6-1.5) mg/dL Est GFR (CKD-EPI)AfAm (60.0-200.0) Est GFR (CKD-EPI)NonAf (60.0-200.0) BUN/Creatinine Ratio (12.00-20.00) Ratio Glucose (70-110) mg/dL POC Glucose (mg/dL) 67 L (75-99) mg/dL Crossmatch Microbiology - Last 24 Hours (Table) 12/14/20 15:29 Blood Culture - Preliminary Blood No Growth after 48 hours 12/15/20 07:46 Gram Stain - Preliminary Knee - Left Wound Culture - Preliminary 12/15/20 07:46 Gram Stain - Preliminary Knee - Left Wound Culture - Preliminary Assessment and Plan Assessment: -Left knee septic arthritis patient is status post incision and drainage and irrigation of the left knee patient will be continue vancomycin as patient has MSSA, infectious disease following patient will likely receive vancomycin with dialysis in the outpatient setting and this is being arranged with case management. -Possible upper GI bleed holding off anticoagulation patient was started on Protonix, GI following. Will discuss with GI about resuming anticoagulant and currently maintained on heparin injection subcutaneous -Gastric angiectasia/AVM requiring gold probe ablation therapy for hemostasis as noted during EGD -Mild gastritis, small hiatal hernia as noted on EGD, biopsies obtained and patient will follow-up outpatient with GI -Acute blood loss anemia from upper GI bleed. Hemoglobin today is 7 and awaiting to receive a unit of PRBCs Will repeat CBC in the morning -End-stage renal disease or dialysis dependent nephrology following and will continue with Sunday/Sunday/Sunday, patient receiving hemodialysis today -Type 2 diabetes mellitus -History of DVT in the past -Hypertension -GI prophylaxis: Protonix 40 mg twice daily Plan: Continue current medications. Monitor for any signs of bleeding. Will repeat CBC in the morning as patient will be receiving another unit of PRBCs today as hemoglobin was found to be 7. Patient currently on subcutaneous heparin and will discuss with GI about resuming anticoagulation. Patient is also having some nausea although denies vomiting. Patient to receive hemodialysis today is her normal schedule is Sunday/Sunday/Sunday. Arrangements being made for outpatient antibiotic therapy with dialysis and infectious disease. Anticipate discharge in 24 hours.
[2020-12-17 17:10] LABS: Glucose,Whole Blood 79 mg/dL (75-99)
[2020-12-17] MEDS: amLODIPine 10 MG TAB PO SCH (19:43)
[2020-12-17] MEDS: INSULIN DETEMIR (LEVEMIR) 100 UNIT/ML SYR SQ SCH (19:49)
[2020-12-17 20:27] LABS: Glucose,Whole Blood 98 mg/dL (75-99)
[2020-12-18 01:45] LABS: Glucose,Whole Blood 133 mg/dL (75-99)
[2020-12-18 06:51] LABS: African American GFR (CKD) 12 (>60 ml/min/1.73 sqM); Anion Gap 15 mmol/L; Blood Urea Nitrogen 28 mg/dL (7-17); Calcium 9.1 mg/dL (8.4-10.2); Carbon Dioxide 21 mmol/L (22-30); Chloride 95 mmol/L (98-107); Glucose 138 mg/dL (74-99); Non-African American GFR(CKD) 10 (>60 ml/min/1.73 sqM); Potassium 4.5 mmol/L (3.5-5.1); Sodium 131 mmol/L (137-145)
[2020-12-18 06:56] LABS: Vancomycin,Random 28.3 ug/mL
[2020-12-18 07:01] LABS: Glucose,Whole Blood 143 mg/dL (75-99)
[2020-12-18] MEDS: INSULIN ASPART (NovoLOG) 100 UNIT/ML VIAL SQ SCH ×2 (07:44→12:19)
[2020-12-18] MEDS: hydrALAZINE HCL 50 MG TAB PO SCH (07:49)
[2020-12-18] MEDS: CALCIUM ACETATE 667 MG TAB PO SCH (07:49)
[2020-12-18] MEDS: ZINC SULFATE 220 MG CAP PO SCH (07:49)
[2020-12-18] MEDS: PANTOPRAZOLE 40 MG/10 ML VIAL IVP SCH (07:50)
[2020-12-18] MEDS: HEPARIN SODIUM,PORCINE 5,000 UNIT/ML 1 ML VIAL SQ SCH (07:50)
[2020-12-18 08:30] VITALS: PULSE 79
[2020-12-18 10:43] LABS: Basophils # (A) 0.09 X 10*3/uL (0.00-0.10); Basophils % (A) 0.8 %; Eosinophils # (A) 0.15 X 10*3/uL (0.04-0.35); Eosinophils % (A) 1.3 %; HCT 25.8 % (37.2-46.3); HGB 8.2 g/dL (12.0-15.0); Lymphocytes # (A) 1.82 X 10*3/uL (0.90-5.00); Lymphocytes % (A) 15.5 %; MCH 30.1 pg (27.0-32.0); MCHC 31.8 g/dL (32.0-37.0); MCV 94.9 fL (80.0-97.0); Mean Platelet Volume 10.5 fL (9.5-12.2); Monocytes # (A) 1.16 X 10*3/uL (0.20-1.00); Monocytes % (A) 9.9 %; Neutrophils # (A) 8.35 X 10*3/uL (1.80-7.70); Neutrophils % (A) 70.9 %; Platelet Count 438 X 10*3/uL (140-440); RBC 2.72 X 10*6/uL (4.10-5.20); RDW 18.8 % (11.5-14.5); WBC 11.76 X 10*3/uL (4.50-10.00)
[2020-12-18 11:39] LABS: Glucose,Whole Blood 166 mg/dL (75-99)
--- NOTE | 2020-12-18 13:27 | P.DS ---
Providers Date of admission: 12/14/20 15:02 Attending physician: Usman Silva Consults: 12/14/20 15:12 Consult Physician Urgent Consulting Provider: Gabriel Liao Consult Reason/Comments: Left knee staff infection Do you want consulting provider notified?: Yes 12/14/20 19:06 Consult Physician Routine Consulting Provider: Ld Downey Consult Reason/Comments: esrd/dialysis pt Do you want consulting provider notified?: Yes 12/14/20 19:07 Consult Physician Routine Consulting Provider: Radha Hein Consult Reason/Comments: coffee ground emisis Do you want consulting provider notified?: Yes 12/14/20 19:08 Consult Physician Routine Consulting Provider: Darshana Felton Consult Reason/Comments: positive synovial fluid culture Do you want consulting provider notified?: Yes Primary care physician: Piedad Quezada [facility] Course: 65-year-old pleasant female who was discharged from my service after she was evaluated and treated for septic arthritis which was subsequently ruled out zane use of the white blood cell count in the synovial fluid which was only 10,000. Although day after discharge the patient the cultures from the synovial fluid came back positive for staph aureus which is MSSA I called the patient back patient came back and was readmitted. Patient does have lymphedema bilateral lower extremity his patient is hemodialysis dependent. Patient was started on Rocephin and vancomycin vancomycin will be discontinued Rocephin will be continued infectious disease and arthritic surgery was good consulted and patient already had incision and drainage and irrigation of the left knee. Patient also had an episode of hematemesis because of which anti-coagulation and aspirin are being held and patient was started on Protonix. 12/16/2020 Patient is seen this morning and hemoglobin was found to be 6.7 and awaiting to receive a unit of PRBCs. Patient apparently has antibodies and blood was unavailable and awaiting to arrive from [place]. Per nursing staff the blood will be here sometime this evening. Patient is also hemodialysis dependent and nephrology following. Patient does receive treatments on Sunday/Sunday/Sunday and will continue. Patient will have dialysis tomorrow. Patient was scheduled to undergo EGD with GI today and reports shows gastric angiectasia/AVM treated with gold probe ablation therapy with hemostasis achieved, mild gastritis, small hiatal hernia, and biopsies obtained of the duodenum and antrum and body and patient will follow-up outpatient for biopsy results. Patient to continue with Protonix twice daily and full liquids with the possibility of advancing tomorrow as tolerated. 12/17/2020 Patient is seen in follow-up this morning and reportedly had a large dark maroon bowel movement last night and multiple episodes of stool in the C. diff was ordered and currently pending as patient has not had any further episodes of loose stools or bowel movements today. Patient did receive 1 unit of PRBC and repeat lab this morning was found to be 7.0. Patient will receive another unit of PRBC today. Patient also to receive dialysis today as she is normally scheduled for Sunday/Sunday/Sunday. Will repeat a.m. labs and monitor hemoglobin. Patient denies any further episodes of vomiting although continues to be nauseated at times and is relieved with Zofran. Patient is maintained on IV vancomycin and will be scheduled outpatient to continue to receive antibiotics with dialysis per infectious disease recommendations. 12/18/2020 Patient doesn't have any more diarrhea C. diff is negative. Patient will receive vancomycin with dialysis sessions duration of vancomycin as per infectious disease. Patient doesn't have any more GI bleed hemoglobin remained stable. Discussed with gastroenterology patient will be resumed on Eliquis at 2.5 mg twice a day patient had an upper and lower GI endoscopy upper GI endoscopy showed mild gastritis lower GI endoscopy showed AV malformations. Patient has a small hiatal hernia as well with GENERAL: The patient is alert and oriented x3, not in any acute distress. Well developed, well nourished. HEENT: Pupils are round and equally reacting to light. EOMI. No scleral icterus. No conjunctival pallor. Normocephalic, atraumatic. No pharyngeal erythema. No thyromegaly. CARDIOVASCULAR: S1 and S2 present. No murmurs, rubs, or gallops. PULMONARY: Chest is clear to auscultation, no wheezing or crackles. ABDOMEN: Soft, nontender, nondistended, normoactive bowel sounds. No palpable organomegaly. MUSCULOSKELETAL: No joint swelling or deformity. Left knee is wrapped with an Zain bandage EXTREMITIES: No cyanosis, clubbing, bilateral lower extremity edema, left knee dressing is dry . NEUROLOGICAL: Gross neurological examination did not reveal any focal deficits. SKIN: No rashes. -Left knee septic arthritis patient is status post incision and drainage and irrigation of the left knee patient will be continue patient is being discharged on vancomycin to avoid PICC line and can get vancomycin during the days of dialysis. Upper GI bleed secondary to gastritis patient also has AV malformations on colonoscopy. -Gastric angiectasia/AVM requiring gold probe ablation therapy for hemostasis as noted during EGD -Mild gastritis, small hiatal hernia as noted on EGD, biopsies obtained and patient will follow-up outpatient with GI -Acute blood loss anemia from upper GI bleed. No more GI bleed. -End-stage renal disease or dialysis dependent nephrology following and will continue with Sunday/Sunday/Sunday, -Type 2 diabetes mellitus -Recent DVT for which patient is on Eliquis which is being held until now will be resumed on 2.5 twice a day -Hypertension Patient Condition at Discharge: Stable Plan - Discharge Summary Discharge Rx Participant: Yes New Discharge Prescriptions: New Pantoprazole Sodium [Protonix] 20 mg PO BID #30 tablet. Continue Gabapentin [Neurontin] 300 mg PO DAILY PRN PRN Reason: NERVE PAIN Aspirin [Adult Low Dose Aspirin EC] 81 mg PO DAILY amLODIPine [Norvasc] 10 mg PO HS Insulin Glargine,Hum.rec.anlog [Basaglar Kwikpen U-100] 21 unit SQ HS Ondansetron HCl [Zofran] 4 mg PO Q8H PRN PRN Reason: Nausea And Vomiting Lidocaine-Prilocaine Cream [Emla Cream 2.5%/2.5%] 1 applic TOPICAL TUTHSA PRN PRN Reason: DIALYIS DAYS INSULIN ASPART (NovoLOG) [NovoLOG (formulary)] See Protocol SQ AC-TID Calcium Acetate [PhosLo] 667 mg PO DAILY PRN PRN Reason: with a snack Calcium Acetate [PhosLo] 1,334 mg PO AC-BID HYDROcodone/APAP 7.5-325MG [[facility] 7.5-325] 1 tablet PO Q6H PRN PRN Reason: Pain hydrALAZINE HCL [Apresoline] 50 mg PO TID #90 tab Furosemide [Lasix] 80 mg PO BID PRN PRN Reason: Edema Albuterol Sulfate [Ventolin HFA] 2 puff INHALATION Q6H PRN 30 Days #1 inhaler PRN Reason: Shortness Of Breath INSULIN ASPART (NovoLOG) [NovoLOG (formulary)] 12 unit SQ AC-TID Zinc 50 mg PO BID Changed Apixaban [Eliquis] 2.5 mg PO BID #0 Discontinued Colchicine [Colcrys] 0.6 mg PO BID #60 each Discharge Medication List Gabapentin [Neurontin] 300 mg PO DAILY PRN 06/27/16 [History] Aspirin [Adult Low Dose Aspirin EC] 81 mg PO DAILY 09/16/16 [History] amLODIPine [Norvasc] 10 mg PO HS 11/29/16 [History] Insulin Glargine,Hum.rec.anlog [Basaglar Kwikpen U-100] 21 unit SQ HS 07/08/18 [History] Lidocaine-Prilocaine Cream [Emla Cream 2.5%/2.5%] 1 applic TOPICAL TUTHSA PRN 05/19/20 [History] Ondansetron HCl [Zofran] 4 mg PO Q8H PRN 05/19/20 [History] Calcium Acetate [PhosLo] 1,334 mg PO AC-BID 07/12/20 [History] Calcium Acetate [PhosLo] 667 mg PO DAILY PRN 07/12/20 [History] INSULIN ASPART (NovoLOG) [NovoLOG (formulary)] See Protocol SQ AC-TID 07/12/20 [History] HYDROcodone/APAP 7.5-325MG [[facility] 7.5-325] 1 tablet PO Q6H PRN 07/13/20 [History] hydrALAZINE HCL [Apresoline] 50 mg PO TID #90 tab 07/16/20 [Rx] Furosemide [Lasix] 80 mg PO BID PRN 11/01/20 [History] Albuterol Sulfate [Ventolin HFA] 2 puff INHALATION Q6H PRN 30 Days #1 inhaler 11/05/20 [Rx] INSULIN ASPART (NovoLOG) [NovoLOG (formulary)] 12 unit SQ AC-TID 12/08/20 [History] Zinc 50 mg PO BID 12/08/20 [History] Apixaban [Eliquis] 2.5 mg PO BID #0 12/18/20 [Rx] Pantoprazole Sodium [Protonix] 20 mg PO BID #30 tablet. 12/18/20 [Rx] Follow up Appointment(s)/Referral(s): Piedad Ingram III, MD [Primary Care Provider] - 1-2 days [facility], [REFERRING] - As Needed Gabriel Liao DO [Doctor of Osteopathic Medicine] - 2 Weeks Darshana Felton MD [STAFF PHYSICIAN] - 1 Week Jaciel Bishop MD [STAFF PHYSICIAN] - 1 Week Activity/Diet/Wound Care/Special Instructions: Orthopedic Discharge and Recovery Instructions RN- IF patient discharges this weekend, please call weekend [facility] #[phone] to arrange antibiotic delivery to Dialysis Clinic. Date of Surgery: 12/15/2020 Diagnosis: Left knee possible septic arthritis versus gout Procedure: Left knee arthroscopic lavage and debridement Medications: List Weight bearing status: Bearing as tolerated All medication refills should be obtained through your primary care doctor or your clinic orthopedic surgeon. Please discuss prescription refills at your follow up appointment. Do not call the hospital for medication refills. Dressing: Unless directed otherwise by your surgeon, leave your dressing in place for a total of 3 days post operatively. Then you may remove your dressing and leave open to air. Keep the area clean and if not able to keep area clean, then cover with sterile gauze and tape. Showering: You may shower 3 days after your procedure allowing soap and water to run over incision. Do not scrub. Do not soak. Blot dry. Follow up: Please confirm a follow up appointment with your surgeon 2 weeks post operatively. Please make an appointment to follow up with your PCP in 1-2 weeks after surgery for evaluation Cast Care: If you have a cast please keep it clean, dry and intact. Do not put anything down inside the cast. Do no scratch inside the cast. Do not weight bear on the cast. Discharge Disposition: HOME WITH HOME HEALTH SERVICES
[2020-12-18 14:31] LABS: Glucose,Whole Blood 42 mg/dL (75-99)
[2020-12-18 14:44] LABS: Glucose,Whole Blood 53 mg/dL (75-99)
[2020-12-18 14:47] VITALS: BP 164/70; RESP 18; TEMP 97.7
[2020-12-18 14:57] LABS: Glucose,Whole Blood 65 mg/dL (75-99)
[2020-12-18 15:12] LABS: Glucose,Whole Blood 82 mg/dL (75-99)
--- NOTE | 2020-12-18 15:24 | PN ---
PROGRESS NOTE Patient is seen for followup for end-stage renal disease. She is currently maintained on a Sunday, Sunday, Sunday schedule. Patient is maintained on antibiotics for left knee septic arthritis. She denies any significant complaints today. PHYSICAL EXAMINATION: Blood pressure was elevated at 183/73 but came down to 153/74 later, heart rate 79 per minute, patient is afebrile. Examination of lower extremities shows chronic skin changes, edema 1+ bilaterally, mostly chronic. 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 Abdomen is soft, obese, nontender. LAB: Show potassium 4.5 from today. Hemoglobin 8.2, white cell count 11.76. ASSESSMENT: 1. End-stage renal disease, on hemodialysis on a Sunday, Sunday, Sunday schedule. 2. Left septic knee arthritis, maintained on antibiotics. The patient will continue with antibiotics with dialysis. 3. Chronic kidney disease mineral bone disorder. 4. Anemia of chronic disease. PLAN: Continue vancomycin with dialysis post discharge. MMODL / IJN: [id number] /
--- NOTE | 2020-12-18 15:47 | PN ---
PROGRESS NOTE DATE OF SERVICE: 12/18/2020 REASON FOR FOLLOWUP: Left knee septic arthritis MSSA. INTERVAL HISTORY: Patient is currently afebrile. Patient is breathing comfortably. The patient denies having any chest pain. No shortness of breath or cough. No abdominal pain. Overall pain and discomfort to the left knee has decreased. PHYSICAL EXAMINATION: Blood pressure is 164/70, pulse 79, temperature 97.7, she is 96% on room air. General description is an elderly female up in the chair in no distress. Respiratory system: Unlabored breathing. Clear to auscultation anteriorly. Heart S1, S2. Regular rate and rhythm. ABDOMEN: Soft, no tenderness. Left knee with minimal swelling. No significant redness or drainage. LABS: Left knee aspirate culture positive for Staph aureus. DIAGNOSTIC IMPRESSION AND PLAN: Patient with left knee septic arthritis, status post washout. Culture with MSSA. The patient is a dialysis patient and needs access site. Hence antibiotic was switched over to vancomycin. She will continue for 4 weeks and close outpatient followup. MMODL / IJN: [id number] /
--- NOTE | 2020-12-18 19:30 | OP ---
OPERATIVE REPORT DATE OF SERVICE: 12/15/2020. PREOPERATIVE DIAGNOSIS: Left knee septic arthritis, suspected. POSTOPERATIVE DIAGNOSIS: Left knee septic arthritis, suspected. PROCEDURES PERFORMED: 1. Left knee arthroscopic lavage. 2. Arthroscopic synovectomy minor with debridement using arthroscopic shaver. ANESTHESIA: General with endotracheal tube. ESTIMATED BLOOD LOSS: 10 mL. CONDITION: Stable to PACU. INDICATION FOR PROCEDURE: This is a 65-year-old female who returned to the emergency department after positive cultures came back in her knee aspiration from earlier in the week. The patient has been having a lot of pain in her knee. However, she had gotten better and was not really having any issues at discharge. Her original aspiration was benign with a synovial white blood cell count of about 10,000 and 95% PMNs with no organisms originally with a negative Gram stain originally. She then started having more knee pain after her discharge and she was called by the physician at the hospital telling her she needed to return to the emergency department as her cultures appeared positive for MSSA. The patient stated that she continued to have knee pain on the left and that she was now having emesis which was bloody or dark in color and does not seem to stop. She does have a history of Covid for which she has been negative since her admissions. She denies any fevers, chills, shortness of breath or chest pain at this time. She denies any other symptoms as well. She was seen and evaluated on the hospital floor as well as preoperatively. All preop protocols followed. It was discussed with the patient and her , who is in the room with her arthroscopic lavage of this knee. A new aspiration was taken on the floor, which did show an increase in white blood cell count on the left knee although it is still a benign number of 24,000. Due to the cloudy fluid, her increased white cell count, increased CRP, sedimentation rate and increased the pain, we decided that it would be best for her to have arthroscopic lavage of the knee. I discussed the risks and benefits of the procedure with the patient as well as her . The risks including risks of bleeding, infection, transfusions, operations, anesthesia up to including . She is willing to assume these risks and all the risks of surgery. She had been given vancomycin as well as Rocephin on the floor and this was continued. The site was marked and she was willing to proceed with the procedure. OPERATIVE COURSE: The patient was transferred to the operative suite by the department of anesthesia and placed supine on a standard operating bed. The patient's arms were placed on arm boards and were well padded and secured. She was secured to the table with a safety strap. SCD was placed on the nonoperative lower extremity. She was drifted off to sleep by the department of anesthesia. All bony prominences were padded accordingly. Left lower extremity was then placed in arthroscopic leg conklin. The foot of the bed was dropped. Preoperative briefing was performed and left knee was identified as the correct knee. The patient's left knee was then prepped and draped in normal sterile fashion. Time- out was performed. All parties in agreement with the procedure to be performed. An 11 blade was then used to create an anterior lateral portal on the patient's left knee in a standard fashion. The trocar was entered into the knee very easily in the suprapatellar pouch. The arthroscope was then introduced into the knee and lavage was ensued. Diagnostic arthroscopy then ensued. The equipment would not allow for picture taking at this time due to a software malfunction. The fluid appeared cloudy in nature and we did take cultures of the initial fluid that came out after the trocar had been placed. Two cultures were taken and 1 was sent and the 3rd was taken for pathology and Gram stain. Diagnostic arthroscopy revealed synovitis, however, no significant meniscal tears medial or lateral, which were intact. The patellofemoral joint was intact. Medial and lateral compartments were intact. There were no significant arthritic changes. There was mild chondromalacia noted in the trochlear groove. There was synovitis, which was noted anterior to the trochlear groove as well as anterior to the trochlear notch. ACL and PCL were intact and were in good condition. Medial portal was then made by first introducing an 18-gauge spinal needle for localization followed by incision. Probe was then placed and the medial lateral compartments were probed and were in good condition. The shaver was then introduced and a limited synovectomy was performed throughout the knee to offer visualization as well as debridement of the tissue which was hyperemic. We then placed a 2nd trocar into the medial portal and allowed 9 L of saline to run through the knee. The first three were an antibiotic solution of Kefzol as well as normal sterile saline followed by 6 L of normal sterile saline. We lavaged the knee and all compartments and ranged the knee to allow for complete lavage as well as any posterior pockets to be debrided. We milked the back of the knee to also provide this lavage. Once this was completed and the 9 L had been completed, the scope was again used for diagnostic purposes as well as a probe. Some more synovectomy was performed in the suprapatellar pouch to allow for debridement in this area. We then removed the shaver as well as the scope and any excess fluid. We removed. The portals were then closed with 2-0 nylon in a simple fashion. The patient was given a 0.25% Marcaine without epinephrine, 20 mL for anesthetic within the intra-articular region. It was then cleaned and dressed sterilely with sterile Adaptic, 4x4s, ABD, and an Zain wrap was placed on the patient's left lower extremity. She was then awakened by the department of anesthesia having tolerated the procedure very well with no complications. She was transferred to her hospital bed into the postop care unit in stable condition. MMODL / DUKEN: [id number] /
== END 2020-12-18 15:15 | disposition home or self-care (01) | DRG 485 ==
LOC: EC 14:40 → 4SSUR 15:02
PROVIDERS: ADMIT Hospitalist; ATTEND Hospitalist
PROC: 0S9D3ZX Drainage of Left Knee Joint, Percutaneous Approach, Diagnostic (ICD-10-PCS; 2020-12-14)
PROC: 5A1D70Z Performance of Urinary Filtration, Intermittent, Less than 6 Hours Per Day (ICD-10-PCS; 2020-12-15)
PROC: 0SBD4ZZ Excision of Left Knee Joint, Percutaneous Endoscopic Approach (ICD-10-PCS; principal; 2020-12-15 07:00)
PROC: 30233N1 Transfusion of Nonautologous Red Blood Cells into Peripheral Vein, Percutaneous Approach (ICD-10-PCS; 2020-12-16)
PROC: 0DB78ZX Excision of Stomach, Pylorus, Via Natural or Artificial Opening Endoscopic, Diagnostic (ICD-10-PCS; 2020-12-16)
PROC: 0W3P8ZZ Control Bleeding in Gastrointestinal Tract, Via Natural or Artificial Opening Endoscopic (ICD-10-PCS; 2020-12-16)
PROC: 0DB98ZX Excision of Duodenum, Via Natural or Artificial Opening Endoscopic, Diagnostic (ICD-10-PCS; 2020-12-16)
DX: M00.062 Staphylococcal arthritis, left knee (principal); N18.6 End stage renal disease; K55.21 Angiodysplasia of colon with hemorrhage; I12.0 Hypertensive chronic kidney disease with stage 5 chronic kidney disease or end stage renal disease; E87.2 Acidosis; D62 Acute posthemorrhagic anemia; E83.9 Disorder of mineral metabolism, unspecified; D63.1 Anemia in chronic kidney disease; E11.22 Type 2 diabetes mellitus with diabetic chronic kidney disease; E11.42 Type 2 diabetes mellitus with diabetic polyneuropathy; Z79.4 Long term (current) use of insulin; Z99.2 Dependence on renal dialysis; Z20.822 Contact with and (suspected) exposure to COVID-19; I89.0 Lymphedema, not elsewhere classified; K58.9 Irritable bowel syndrome, unspecified; M10.9 Gout, unspecified; E66.9 Obesity, unspecified; K29.70 Gastritis, unspecified, without bleeding; K44.9 Diaphragmatic hernia without obstruction or gangrene; B95.61 Methicillin susceptible Staphylococcus aureus infection as the cause of diseases classified elsewhere; Z68.38 Body mass index [BMI] 38.0-38.9, adult; Z87.01 Personal history of pneumonia (recurrent); Z79.899 Other long term (current) drug therapy; Z79.82 Long term (current) use of aspirin; Z79.01 Long term (current) use of anticoagulants; Z85.828 Personal history of other malignant neoplasm of skin; Z86.16 Personal history of COVID-19; Z86.718 Personal history of other venous thrombosis and embolism; Z98.51 Tubal ligation status; Z90.49 Acquired absence of other specified parts of digestive tract; Z98.42 Cataract extraction status, left eye; Z98.41 Cataract extraction status, right eye; Z96.1 Presence of intraocular lens; Z98.890 Other specified postprocedural states; Z88.2 Allergy status to sulfonamides; Z80.42 Family history of malignant neoplasm of prostate; Z83.3 Family history of diabetes mellitus; Z80.3 Family history of malignant neoplasm of breast
CPT/HCPCS: 36415; 43239; 43255; 80048; 80053; 80202; 82607; 82728; 82746; 83540; 83550; 83605; 85025; 85045; 86850; 86860; 86870; 86880; 86885; 86900; 86901; 86902; 86906; 86920; 87040; 87070; 87075; 87077; 87186; 87205; 87635; 88108; 88305; 89050; 89060; 90935; 96361; 96365; 99284

== ENCOUNTER → 2021-01-25 | Outpatient (CLI) | payer MEDICARE, BC ==
--- NOTE | 2021-01-25 16:11 | CT ---
EXAMINATION TYPE: CT brain wo con DATE OF EXAM: 01/25/2021 COMPARISON: 09/16/2016 INDICATION: Fall, hit head DLP: 1072.3 mGycm, Automated exposure control for dose reduction was used. CONTRAST: None CT of the brain is performed utilizing 3 mm thick sections through the posterior fossa and 3 mm thick sections through the remaining calvarium. Study is performed within 24 hours of arrival to the hosp [facility]. No abnormal hyperdensity is present to suggest an acute intracranial hemorrhage. There is a calcification along the inner table of the temporal bone measuring approximately 1.4 cm li sabino related to a calcified meningioma. No significant mass effect on the adjacent brain is evident. No acute fractures are evident. There is some soft tissue swelling over the right posterior parietal region. No acute infarcts are evident. Ventricles and sulci are appropriate for the patient age. Paranasal sinuses and mastoid air cells within the [id number] are clear. IMPRESSIONS: 1. No acute intracranial process. 2. Mild soft tissue swelling left posterior parietal region. 3. Old calcified meningioma present previously in the right temporal region.
== END | disposition home or self-care (01) ==
LOC: RADCTMAIN 15:35
PROVIDERS: ATTEND Family Medicine
DX: R22.0 Localized swelling, mass and lump, head (principal); Z86.011 Personal history of benign neoplasm of the brain
CPT/HCPCS: 70450

== ENCOUNTER 2021-01-26 11:53 | Inpatient (IN) | payer MEDICARE, BC ==
[2021-01-26 12:08] LABS: Glucose,Whole Blood 58 mg/dL (75-99)
--- NOTE | 2021-01-26 12:40 | ED ---
Recheck HPI - General Chief Complaint: Recheck/Abnormal Lab/Rx Stated Complaint: hypoglycemia, shaking Time Seen by Provider: 01/26/21 12:20 Source: patient, family, RN notes reviewed Mode of arrival: wheelchair Limitations: no limitations - History of Present Illness Initial Comments: This is a 65-year-old female history of multiple medical issues including end- stage renal disease with dialysis diabetes DVT on blood thinners hypertension and peripheral neuropathy who was brought in today by her because of profound weakness increased weakness to her extremities. She had a low blood sugar 359 home. As well as have dialysis at 5:30 this morning of admission because of weakness. She denies any fevers or sweats he does have chills occasionally she states. She states she makes her a little urine. He also had some increased peripheral edema he also did develop edema to her sclera. No trauma reported she apparently had a CAT scan of her brain this week with results pending. Her complaints modifying factors at this time. MD Complaint: other - Related Data Home Medications Medication Instructions Recorded Confirmed Gabapentin [Neurontin] 300 mg PO DAILY PRN 06/27/16 01/26/21 Aspirin [Adult Low Dose Aspirin EC] 81 mg PO DAILY 09/16/16 01/26/21 amLODIPine [Norvasc] 10 mg PO HS 11/29/16 01/26/21 Insulin Glargine,Hum.rec.anlog 21 unit SQ HS 07/08/18 01/26/21 [Bas[place]lar [place] U-100] Lidocaine-Prilocaine Cream [Emla 1 applic TOPICAL TUTHSA PRN 05/19/20 01/26/21 Cream 2.5%/2.5%] Ondansetron HCl [Zofran] 4 mg PO Q8H PRN 05/19/20 01/26/21 Calcium Acetate [PhosLo] 1,334 mg PO AC-BID 07/12/20 01/26/21 Calcium Acetate [PhosLo] 667 mg PO DAILY PRN 07/12/20 01/26/21 INSULIN ASPART (NovoLOG) [NovoLOG See Protocol SQ AC-TID 07/12/20 01/26/21 (formulary)] HYDROcodone/APAP 7.5-325MG [[place] 1 tablet PO Q6H PRN 09/15/20 03/31/21 7.5-325] Furosemide [Lasix] 80 mg PO BID PRN 11/01/20 01/26/21 INSULIN ASPART (NovoLOG) [NovoLOG 12 unit SQ AC-TID 12/08/20 01/26/21 (formulary)] Zinc 50 mg PO BID 12/08/20 01/26/21 Albuterol Sulfate [Ventolin HFA] 2 puff INHALATION RT-QID PRN 01/26/21 01/26/21 Apixaban [Eliquis] 2.5 mg PO BID 01/26/21 01/26/21 Loperamide [Imodium] 4 mg PO Q6H PRN 01/26/21 01/26/21 Previous Rx's Medication Instructions Recorded hydrALAZINE HCL [Apresoline] 50 mg PO TID #90 tab 07/16/20 Allergies Allergy/AdvReac Type Severity Reaction Status Date / Time sulfamethoxazole AdvReac Nausea & Verified 01/26/21 12:09 [From Bactrim] Vomiting,dyspnea trimethoprim [From Bactrim] AdvReac Nausea & Verified 01/26/21 12:09 Vomiting,dyspnea Review of Systems ROS Statement: Those systems with pertinent positive or pertinent negative responses have been documented in the HPI. ROS Other: All systems not noted in ROS Statement are negative. Past Medical History Past Medical History: Diabetes Mellitus, Dialysis, Deep Vein Thrombosis (DVT), Hypertension, Renal Disease Additional Past Medical History / Comment(s): ESRD with hemodialysis t,th, sat, IDDM type II, past DKA, neuropathy bilateral feet/legs and alittle in hands, "fast heart rate"-had cardiac ablation, lymphedema bilateral lower legs/feet, gout R knee, mineral bone disease, IBS, R sided Mustafa's palsey.skin CA on back removed. covid 19 in October History of Any Multi-Drug Resistant Organisms: None Reported Past Surgical History: Appendectomy, Cardiac Ablation, Section, Cho lecystectomy, Tubal Ligation Additional Past Surgical History / Comment(s): bilateral cataract removal with lens implants, C-sections, bilateral benign breast biopsies, AV graft left arm done 06-23-16 for dialysis, colonoscopy. Past Anesthesia/Blood Transfusion Reactions: Motion Sickness, Postoperative Nausea & Vomiting (PONV) Past Psychological History: No Psychological Hx Reported Smoking Status: Never smoker Past Alcohol Use History: None Reported Past Drug Use History: None Reported - Past Family History Father Family Medical History: Cancer, Diabetes Mellitus Additional Family Medical History / Comment(s): Father had prostate cancer. Mother Family Medical History: Cancer Additional Family Medical History / Comment(s): Mother had breast cancer. General Exam - General Exam Comments Initial Comments: This is a well-developed obese female who is awake alert oriented 3 he has seem somewhat lethargic however. Limitations: no limitations General appearance: alert, in no apparent distress Head exam: Present: atraumatic, normocephalic, normal inspection Eye exam: Present: PERRL, other (Conjunctival edema bilaterally) ENT exam: Present: mucous membranes dry Neck exam: Present: normal inspection. Absent: tenderness, meningismus, lymphadenopathy Respiratory exam: Present: decreased breath sounds Cardiovascular Exam: Present: regular rate, normal rhythm, normal heart sounds. Absent: systolic murmur, diastolic murmur, rubs, gallop, clicks GI/Abdominal exam: Present: soft, normal bowel sounds. Absent: distended, tenderness, guarding, rebound, rigid Rectal exam: Present: deferred Extremities exam: Present: full ROM, normal capillary refill, pedal edema (Bilateral peripheral edema with stasis changes. Dressings applied to some weeping wounds.). Absent: tenderness, joint swelling, calf tenderness Back exam: Present: normal inspection Neurological exam: Present: alert, oriented X3, CN II-XII intact Psychiatric exam: Present: normal affect, normal mood Skin exam: Present: warm, dry, intact, normal color. Absent: rash Course Vital Signs 01/26/21 01/26/21 01/26/21 12:06 14:00 15:00 Temperature 98.3 F Pulse Rate 75 64 61 Respiratory 22 18 18 Rate Blood Pressure 183/76 162/89 158/88 O2 Sat by Pulse 92 L 94 L 95 Oximetry Medical Decision Making - Medical Decision Making I did discuss findings with the patient family as well as with Dr. Martinez who did come to the emergency department should the patient also with Dr. Downey from nephrology. - Lab Data Result diagrams: 01/26/21 13:02 01/26/21 13:58 Lab Results 01/26/21 01/26/21 01/26/21 Range/Units 12:07 13:02 13:02 WBC 10.5 (3.8-10.6) k/uL RBC 3.11 L (3.80-5.40) m/uL Hgb 9.3 L D (11.4-16.0) gm/dL Hct 30.1 L (34.0-46.0) % MCV 96.8 D (80.0-100.0) fL MCH 29.9 (25.0-35.0) pg MCHC 30.9 L (31.0-37.0) g/dL RDW 16.7 H (11.5-15.5) % Plt Count 342 (150-450) k/uL MPV 7.5 Neutrophils % 81 % Lymphocytes % 12 % Monocytes % 5 % Eosinophils % 1 % Basophils % 1 % Neutrophils # 8.5 H (1.3-7.7) k/uL Lymphocytes # 1.3 (1.0-4.8) k/uL Monocytes # 0.5 (0-1.0) k/uL Eosinophils # 0.1 (0-0.7) k/uL Basophils # 0.1 (0-0.2) k/uL Hypochromasia Moderate Anisocytosis Slight Macrocytosis Slight PT 10.9 (9.0-12.0) sec INR 1.0 (<1.2) APTT 26.6 (22.0-30.0) sec Sodium (137-145) mmol/L Potassium (3.5-5.1) mmol/L Chloride (98-107) mmol/L Carbon Dioxide (22-30) mmol/L Anion Gap mmol/L BUN (7-17) mg/dL Creatinine (0.52-1.04) mg/dL Est GFR (CKD-EPI)AfAm (>60 ml/min/1.73 sqM) Est GFR (CKD-EPI)NonAf (>60 ml/min/1.73 sqM) Glucose (74-99) mg/dL POC Glucose (mg/dL) 58 L (75-99) mg/dL POC Glu [employer]spin Machine Operator Sawyer Concepcion Plasma Lactic Acid [place] (0.7-2.0) mmol/L Calcium (8.4-10.2) mg/dL Magnesium (1.6-2.3) mg/dL Total Bilirubin (0.2-1.3) mg/dL AST (14-36) U/L ALT (4-34) U/L Alkaline Phosphatase (38-126) U/L Creatine Kinase (30-135) U/L Troponin I (0.000-0.034) ng/mL NT-Pro-B Natriuret Pep pg/mL Total Protein (6.3-8.2) g/dL Albumin (3.5-5.0) g/dL 01/26/21 01/26/21 01/26/21 Range/Units 13:02 13:02 13:02 WBC (3.8-10.6) k/uL RBC (3.80-5.40) m/uL Hgb (11.4-16.0) gm/dL Hct (34.0-46.0) % MCV (80.0-100.0) fL MCH (25.0-35.0) pg MCHC (31.0-37.0) g/dL RDW (11.5-15.5) % Plt Count (150-450) k/uL MPV Neutrophils % % Lymphocytes % % Monocytes % % Eosinophils % % Basophils % % Neutrophils # (1.3-7.7) k/uL Lymphocytes # (1.0-4.8) k/uL Monocytes # (0-1.0) k/uL Eosinophils # (0-0.7) k/uL Basophils # (0-0.2) k/uL Hypochromasia Anisocytosis Macrocytosis PT (9.0-12.0) sec INR (<1.2) APTT (22.0-30.0) sec Sodium (137-145) mmol/L Potassium (3.5-5.1) mmol/L Chloride (98-107) mmol/L Carbon Dioxide (22-30) mmol/L Anion Gap mmol/L BUN (7-17) mg/dL Creatinine (0.52-1.04) mg/dL Est GFR (CKD-EPI)AfAm (>60 ml/min/1.73 sqM) Est GFR (CKD-EPI)NonAf (>60 ml/min/1.73 sqM) Glucose (74-99) mg/dL POC Glucose (mg/dL) (75-99) mg/dL POC Glu Clothespin Machine Operator ID Plasma Lactic Acid [place] 1.7 (0.7-2.0) mmol/L Calcium (8.4-10.2) mg/dL Magnesium (1.6-2.3) mg/dL Total Bilirubin (0.2-1.3) mg/dL AST (14-36) U/L ALT (4-34) U/L Alkaline Phosphatase (38-126) U/L Creatine Kinase (30-135) U/L Troponin I 0.067 H* (0.000-0.034) ng/mL NT-Pro-B Natriuret Pep 20980 pg/mL Total Protein (6.3-8.2) g/dL Albumin (3.5-5.0) g/dL 01/26/21 01/26/21 Range/Units 13:31 13:58 WBC (3.8-10.6) k/uL RBC (3.80-5.40) m/uL Hgb (11.4-16.0) gm/dL Hct (34.0-46.0) % MCV (80.0-100.0) fL MCH (25.0-35.0) pg MCHC (31.0-37.0) g/dL RDW (11.5-15.5) % Plt Count (150-450) k/uL MPV Neutrophils % % Lymphocytes % % Monocytes % % Eosinophils % % Basophils % % Neutrophils # (1.3-7.7) k/uL Lymphocytes # (1.0-4.8) k/uL Monocytes # (0-1.0) k/uL Eosinophils # (0-0.7) k/uL Basophils # (0-0.2) k/uL Hypochromasia Anisocytosis Macrocytosis PT (9.0-12.0) sec INR (<1.2) APTT (22.0-30.0) sec Sodium 132 L (137-145) mmol/L Potassium 5.7 H (3.5-5.1) mmol/L Chloride 92 L (98-107) mmol/L Carbon Dioxide 28 (22-30) mmol/L Anion Gap 12 mmol/L BUN 28 H (7-17) mg/dL Creatinine 5.89 H (0.52-1.04) mg/dL Est GFR (CKD-EPI)AfAm 8 (>60 ml/min/1.73 sqM) Est GFR (CKD-EPI)NonAf 7 (>60 ml/min/1.73 sqM) Glucose 72 L (74-99) mg/dL POC Glucose (mg/dL) 76 (75-99) mg/dL POC Glu Clothespin Machine Operator ID Sujatha Ayoub Plasma Lactic Acid [place] (0.7-2.0) mmol/L Calcium 8.9 (8.4-10.2) mg/dL Magnesium 2.9 H (1.6-2.3) mg/dL Total Bilirubin 0.6 (0.2-1.3) mg/dL AST 46 H (14-36) U/L ALT 34 (4-34) U/L Alkaline Phosphatase 239 H (38-126) U/L Creatine Kinase 67 (30-135) U/L Troponin I (0.000-0.034) ng/mL NT-Pro-B Natriuret Pep pg/mL Total Protein 7.1 (6.3-8.2) g/dL Albumin 3.6 (3.5-5.0) g/dL - EKG Data -: EKG Interpreted by Me EKG Comments: Sinus rhythm a 68. Interval 208 QRS duration 92 QT since QTC 490/521 prolonged QT nonspecific anterior configuration - Radiology Data Radiology results: report reviewed (Imaging reviewed consistent with CHF right lower lobe infiltrate noted), image reviewed Disposition Clinical Impression: CHF (congestive heart failure), Chronic renal failure syndrome, Anemia, Elevated troponin Disposition: ADMITTED IP TO THIS HOSP Condition: Fair Referrals: Piedad Ingram III, MD [Primary Care Provider] - 1-2 days
[2021-01-26 13:16] LABS: Anisocytosis Slight; Basophils # (A) 0.1 k/uL (0-0.2); Basophils % (A) 1 %; Eosinophils # (A) 0.1 k/uL (0-0.7); Eosinophils % (A) 1 %; HCT 30.1 % (34.0-46.0); Hypochromasia Moderate; Lymphocytes # (A) 1.3 k/uL (1.0-4.8); Lymphocytes % (A) 12 %; MCH 29.9 pg (25.0-35.0); MCHC 30.9 g/dL (31.0-37.0); Macrocytosis Slight; Mean Platelet Volume 7.5; Monocytes # (A) 0.5 k/uL (0-1.0); Monocytes % (A) 5 %; Neutrophils # (A) 8.5 k/uL (1.3-7.7); Neutrophils % (A) 81 %; Platelet Count 342 k/uL (150-450); RBC 3.11 m/uL (3.80-5.40); RDW 16.7 % (11.5-15.5); WBC 10.5 k/uL (3.8-10.6)
[2021-01-26 13:26] LABS: HGB 9.3 gm/dL (11.4-16.0); MCV 96.8 fL (80.0-100.0)
[2021-01-26 13:32] LABS: Glucose,Whole Blood 76 mg/dL (75-99)
--- NOTE | 2021-01-26 13:42 | XR ---
EXAMINATION TYPE: XR chest 2V DATE OF EXAM: 01/26/2021 COMPARISON: 12/13/2020 INDICATION: Weakness TECHNIQUE: Frontal and lateral views of the chest are obtained. FINDINGS: The heart size is enlarged. The pulmonary vasculature is normal. Mild right lower lobe infiltrate is present. This is less distinct but covers a larger area prior exa m. IMPRESSION: 1. Mild right lower lobe infiltrate. Findings change from comparison. Correlate for a new pneumonia a t this location.
[2021-01-26 13:48] LABS: Partial Thromboplastin Time 26.6 sec (22.0-30.0); Prothrombin Time 10.9 sec (9.0-12.0)
[2021-01-26 14:01] VITALS: RESP 18
[2021-01-26 14:39] LABS: Albumin 3.6 g/dL (3.5-5.0); Calcium 8.9 mg/dL (8.4-10.2); Magnesium 2.9 mg/dL (1.6-2.3); Potassium 5.7 mmol/L (3.5-5.1); Total Bilirubin 0.6 mg/dL (0.2-1.3); Total Protein 7.1 g/dL (6.3-8.2)
[2021-01-26] MEDS ORDERED: GABAPENTIN 300 MG CAP PO PRN (15:41)
[2021-01-26] MEDS ORDERED: FUROSEMIDE 80 MG TAB PO PRN (15:41)
[2021-01-26] MEDS ORDERED: ALBUTEROL HFA INHALER INHALATION PRN (15:41)
[2021-01-26] MEDS ORDERED: ONDANSETRON 4 MG TAB PO PRN (15:41)
[2021-01-26] MEDS ORDERED: LOPERAMIDE 2 MG CAP PO PRN (15:41)
[2021-01-26] MEDS ORDERED: LIDOCAINE-PRILOCAINE 2.5-2.5% CREAM 5 GM TUBE TOPICAL PRN (15:41)
[2021-01-26] MEDS ORDERED: CALCIUM ACETATE 667 MG TAB PO PRN (15:41)
--- NOTE | 2021-01-26 15:56 | P.HPIM ---
History of Present Illness 65-year-old pleasant female was brought in because of excessive drowsiness and sleepiness and patient is found to have low blood sugars and 50s. Patient was supposed to go to hemodialysis today because of excessive tiredness and sle epiness she ended up not going there. Patient here can use to have low blood sugars patient is on long-acting insulin as well as pre-meal insulin patient is a diabetic. Patient denied any fever chills. Patient does have a significant edema bilateral lower expertise. Patient does have significant anasarca chest x-ray did show pulmonary edema. Patient also denied any significant shortness of breath. Patient has also some bilateral lower extremities for which I'm consulted wound care. CT of the head is pending chest x-ray showed right lower lobe infiltrate suspicious for pneumonia although patient doesn't have any fever no leukocytosis patient denied any significant cough. Patient does appear to have pulmonary edema rather than pneumonia. Unable to obtain much of the history from the patient because of her excessive drowsiness and sleepiness patient denied any dysuria patient barely makes any urine. Review of Systems REVIEW OF SYSTEMS: Rest of the review of systems except for those mentioned above were negative most of the review of systems I'm unable to obtain due to her clinical condition The rest of the 14-point review of systems is negative. Past Medical History Past Medical History: Diabetes Mellitus, Dialysis, Deep Vein Thrombosis (DVT), Hypertension, Renal Disease Additional Past Medical History / Comment(s): ESRD with hemodialysis t,, sun, IDDM type II, past DKA, neuropathy bilateral feet/legs and alittle in hands, "fast heart rate"-had cardiac ablation, lymphedema bilateral lower legs/feet, gout R knee, mineral bone disease, IBS, R sided Mustafa's palsey.skin CA on back removed. covid 19 in October History of Any Multi-Drug Resistant Organisms: None Reported Past Surgical History: Appendectomy, Cardiac Ablation, Section, Cholecystectomy, Tubal Ligation Additional Past Surgical History / Comment(s): bilateral cataract removal with lens implants, C-sections, bilateral benign breast biopsies, AV graft left arm done 06-23-16 for dialysis, colonoscopy. Past Anesthesia/Blood Transfusion Reactions: Motion Sickness, Postoperative Nausea & Vomiting (PONV) Past Psychological History: No Psychological Hx Reported Smoking Status: Never smoker Past Alcohol Use History: None Reported Past Drug Use History: None Reported - Past Family History Father Family Medical History: Cancer, Diabetes Mellitus Additional Family Medical History / Comment(s): Father had prostate cancer. Mother Family Medical History: Cancer Additional Family Medical History / Comment(s): Mother had breast cancer. Medications and Allergies Home Medications Medication Instructions Recorded Confirmed Type Gabapentin [Neurontin] 300 mg PO DAILY PRN 06/27/16 01/26/21 History Aspirin [Adult Low Dose Aspirin EC] 81 mg PO DAILY 09/16/16 01/26/21 History amLODIPine [Norvasc] 10 mg PO HS 11/29/16 01/26/21 History Insulin Glargine,Hum.rec.anlog 21 unit SQ HS 07/08/18 01/26/21 History [[place] U-100] Lidocaine-Prilocaine Cream [Emla 1 applic TOPICAL TUTHSA PRN 05/19/20 01/26/21 History Cream 2.5%/2.5%] Ondansetron HCl [Zofran] 4 mg PO Q8H PRN 05/19/20 01/26/21 History Calcium Acetate [PhosLo] 1,334 mg PO AC-BID 07/12/20 01/26/21 History Calcium Acetate [PhosLo] 667 mg PO DAILY PRN 07/12/20 01/26/21 History INSULIN ASPART (NovoLOG) [NovoLOG See Protocol SQ AC-TID 07/12/20 01/26/21 History (formulary)] HYDROcodone/APAP 7.5-325MG [[place] 1 tablet PO Q6H PRN 07/13/20 01/26/21 History 7.5-325] hydrALAZINE HCL [Apresoline] 50 mg PO TID #90 tab 07/16/20 01/26/21 Rx Furosemide [Lasix] 80 mg PO BID PRN 11/01/20 01/26/21 History INSULIN ASPART (NovoLOG) [NovoLOG 12 unit SQ AC-TID 12/08/20 01/26/21 History (formulary)] Zinc 50 mg PO BID 12/08/20 01/26/21 History Albuterol Sulfate [Ventolin HFA] 2 puff INHALATION RT-QID PRN 01/26/21 01/26/21 History Apixaban [Eliquis] 2.5 mg PO BID 01/26/21 01/26/21 History Loperamide [Imodium] 4 mg PO Q6H PRN 01/26/21 01/26/21 History Allergies Allergy/AdvReac Type Severity Reaction Status Date / Time sulfamethoxazole AdvReac Nausea & Verified 01/26/21 12:09 [From Bactrim] Vomiting,dyspnea trimethoprim [From Bactrim] AdvReac Nausea & Verified 01/26/21 12:09 Vomiting,dyspnea Physical Exam Vitals: Vital Signs Temp Pulse Resp BP Pulse Ox 01/26/21 15:00 61 18 158/88 95 01/26/21 14:00 64 18 162/89 94 L 01/26/21 12:06 98.3 F 75 22 183/76 92 L Intake and Output 01/26/21 01/26/21 01/26/21 06:59 14:59 22:59 Other: Weight 104.326 kg PHYSICAL EXAMINATION: GENERAL: Drowsy sleepy, not in any acute distress. Well developed, well nourished. Obese HEENT: Pupils are round and equally reacting to light. EOMI. No scleral icterus. No conjunctival pallor. Normocephalic, atraumatic. No pharyngeal erythema. No thyromegaly. CARDIOVASCULAR: S1 and S2 present. No murmurs, rubs, or gallops. PULMONARY: Chest is clear to auscultation, no wheezing or crackles. ABDOMEN: Soft, nontender, nondistended, normoactive bowel sounds. No palpable organomegaly. MUSCULOSKELETAL: No joint swelling or deformity. EXTREMITIES: No cyanosis, clubbing, does have significant pedal edema in bilateral lower extremities NEUROLOGICAL: Gross neurological examination did not reveal any focal deficits. SKIN: Multiple skin breakdowns and ulcers in bilateral lower extremities significant swelling in bilateral lower extremities. Results CBC & Chem 7: 01/26/21 13:02 01/26/21 13:58 Labs: Abnormal Lab Results - Last 24 Hours (Table) 01/26/21 01/26/21 01/26/21 Range/Units 12:07 13:02 13:02 RBC 3.11 L (3.80-5.40) m/uL Hgb 9.3 L D (11.4-16.0) gm/dL Hct 30.1 L (34.0-46.0) % MCHC 30.9 L (31.0-37.0) g/dL RDW 16.7 H (11.5-15.5) % Neutrophils # 8.5 H (1.3-7.7) k/uL Sodium (137-145) mmol/L Potassium (3.5-5.1) mmol/L Chloride (98-107) mmol/L BUN (7-17) mg/dL Creatinine (0.52-1.04) mg/dL Glucose (74-99) mg/dL POC Glucose (mg/dL) 58 L (75-99) mg/dL Magnesium (1.6-2.3) mg/dL AST (14-36) U/L Alkaline Phosphatase (38-126) U/L Troponin I 0.067 H* (0.000-0.034) ng/mL 01/26/21 Range/Units 13:58 RBC (3.80-5.40) m/uL Hgb (11.4-16.0) gm/dL Hct (34.0-46.0) % MCHC (31.0-37.0) g/dL RDW (11.5-15.5) % Neutrophils # (1.3-7.7) k/uL Sodium 132 L (137-145) mmol/L Potassium 5.7 H (3.5-5.1) mmol/L Chloride 92 L (98-107) mmol/L BUN 28 H (7-17) mg/dL Creatinine 5.89 H (0.52-1.04) mg/dL Glucose 72 L (74-99) mg/dL POC Glucose (mg/dL) (75-99) mg/dL Magnesium 2.9 H (1.6-2.3) mg/dL AST 46 H (14-36) U/L Alkaline Phosphatase 239 H (38-126) U/L Troponin I (0.000-0.034) ng/mL Assessment and Plan Plan: Decreased level of consciousness, drowsiness: Probably multifactorial and mostly metabolic encephalopathy from hyperglycemia and there may be a competent of toxic encephalopathy from [place] and gabapentin which will be held temporarily. No other evidence of infection patient will not be started on any antibiotics patient is volume overloaded -Volume overload, pulmonary edema secondary to end-stage renal disease patient may need hemodialysis today nephrology was consulted. -Recent Covid 19 infection in month of October. -End-stage renal disease hemodialysis dependent patient is Sunday hemodialysis supposed to have hemodialysis today which she missed. -Type 2 diabetes mellitus: because of hypoglycemia, her long-acting insulin as well as pre-meal insulin will be held and patient will be just on sliding scale. -History of DVT for which patient is on Eliquis which will be continued -Patient had a recent GI bleed after which antiplatelet medication was held temporarily patient was initiated back on anticoagulation wasn't in 2.5 mg twice a day for the course -Hypertension
[2021-01-26] MEDS: CALCIUM ACETATE 667 MG TAB PO SCH (19:05)
[2021-01-26] MEDS: INSULIN ASPART (NovoLOG) 100 UNIT/ML VIAL SQ SCH ×2 (19:05→21:19)
[2021-01-26] MEDS: hydrALAZINE HCL 50 MG TAB PO SCH ×2 (19:06→22:33)
[2021-01-26] MEDS ORDERED: amLODIPine 10 MG TAB PO SCH (21:00)
[2021-01-26 21:11] LABS: Glucose,Whole Blood 111 mg/dL (75-99)
[2021-01-26] MEDS: ZINC SULFATE 220 MG CAP PO SCH (21:39)
[2021-01-26] MEDS: APIXABAN 2.5 MG TABLET PO SCH (21:39)
[2021-01-26 23:41] LABS: Glucose,Whole Blood 161 mg/dL (75-99)
[2021-01-27 06:09] LABS: Glucose,Whole Blood 150 mg/dL (75-99)
[2021-01-27] MEDS: INSULIN ASPART (NovoLOG) 100 UNIT/ML VIAL SQ SCH ×2 (06:10→13:10)
[2021-01-27] MEDS: CALCIUM ACETATE 667 MG TAB PO SCH (06:18)
[2021-01-27] MEDS ORDERED: ASPIRIN 81 MG PO SCH (09:00)
--- NOTE | 2021-01-27 09:38 | XR ---
EXAMINATION TYPE: XR chest 1V DATE OF EXAM: 01/27/2021 COMPARISON: 01/26/2021 INDICATION: CHF TECHNIQUE: Single frontal view of the chest is obtained. FINDINGS: The heart size is enlarged. The pulmonary vasculature is somewhat prominent. Mild diffuse subsegmental infiltrate may be present. Some blunting of the right costophrenic angle is present. Right lower lobe infiltrate has improved. IMPRESSION: 1. Nonspecific mild scattered infiltrates improved from comparison. Correlate for atypical pulmonary edema. Atypical pneumonia is not excluded. 2. Cardiomegaly with prominent pulmonary vascular markings.
[2021-01-27 10:47] LABS: Anisocytosis Slight; HCT 27.4 % (34.0-46.0); HGB 8.9 gm/dL (11.4-16.0); Hypochromasia Slight; MCH 31.3 pg (25.0-35.0); MCHC 32.6 g/dL (31.0-37.0); MCV 96.2 fL (80.0-100.0); Mean Platelet Volume 7.3; Platelet Count 281 k/uL (150-450); RBC 2.85 m/uL (3.80-5.40); RDW 16.8 % (11.5-15.5); WBC 7.6 k/uL (3.8-10.6)
--- NOTE | 2021-01-27 11:04 | P.NPCON ---
History of Present Illness - Reason for Consult end stage renal disease - History of Present Illness Reason for consultation: End-stage renal disease History of present illness: Patient is a 65-year-old female seen in renal consultation for end-stage renal disease. She is maintained on hemodialysis on Sunday schedule. Patient states she woke up yesterday morning and felt very weak and unable to walk. Patient states that blood sugar was also low near 55 and subsequently came to the hospital. Blood sugar this morning was 150. She did undergo short treatment of hemodialysis yesterday and is currently undergoing another treatment today. Denies chest pain or shortness of breath. No fever or chills. No cough. No vomiting or diarrhea. Hemodynamically stable. No pain. Vital signs are stable. General: The patient appeared well nourished and normally developed. HEENT: Head exam is unremarkable. Neck is without jugular venous distension. LUNGS: Breath sounds decreased. HEART: Rate and Rhythm are regular. ABDOMEN: Soft, nontender. Obese. EXTREMITITES: 2+ edema. Chronic changes noted. Past Medical History Past Medical History: Diabetes Mellitus, Dialysis, Deep Vein Thrombosis (DVT), Hypertension, Renal Disease Additional Past Medical History / Comment(s): ESRD with hemodialysis,MWF, IDDM type II, past DKA, neuropathy bilateral feet/legs and alittle in hands, "fast heart rate"-had cardiac ablation, lymphedema bilateral lower legs/feet, gout R knee, mineral bone disease, IBS, R sided Mustafa's palsey.skin CA on back removed. covid 19 in October History of Any Multi-Drug Resistant Organisms: None Reported Past Surgical History: Appendectomy, Cardiac Ablation, Section, Cholecystectomy, Tubal Ligation Additional Past Surgical History / Comment(s): bilateral cataract removal with lens implants, C-sections, bilateral benign breast biopsies, AV graft left arm done 06-23-16 for dialysis, colonoscopy. Past Anesthesia/Blood Transfusion Reactions: Motion Sickness, Postoperative Nausea & Vomiting (PONV) Past Psychological History: No Psychological Hx Reported Additional Psychological History / Comment(s): Pt resides with her spouse. She is independent. She uses a walker. She drives. . Smoking Status: Never smoker Past Alcohol Use History: None Reported Past Drug Use History: None Reported - Past Family History Father Family Medical History: Cancer, Diabetes Mellitus Additional Family Medical History / Comment(s): Father had prostate cancer. Mother Family Medical History: Cancer Additional Family Medical History / Comment(s): Mother had breast cancer. Medications and Allergies Home Medications Medication Instructions Recorded Confirmed Type Gabapentin [Neurontin] 300 mg PO DAILY PRN 06/27/16 01/26/21 History Aspirin [Adult Low Dose Aspirin EC] 81 mg PO DAILY 09/16/16 01/26/21 History amLODIPine [Norvasc] 10 mg PO HS 11/29/16 01/26/21 History Insulin Glargine,Hum.rec.anlog 21 unit SQ HS 07/08/18 01/26/21 History [Basaglar Kwikpen U-100] Lidocaine-Prilocaine Cream [Emla 1 applic TOPICAL TUTHSA PRN 05/19/20 01/26/21 History Cream 2.5%/2.5%] Ondansetron HCl [Zofran] 4 mg PO Q8H PRN 05/19/20 01/26/21 History Calcium Acetate [PhosLo] 1,334 mg PO AC-BID 07/12/20 01/26/21 History Calcium Acetate [PhosLo] 667 mg PO DAILY PRN 07/12/20 01/26/21 History INSULIN ASPART (NovoLOG) [NovoLOG See Protocol SQ AC-TID 07/12/20 01/26/21 History (formulary)] HYDROcodone/APAP 7.5-325MG [[place] 1 tablet PO Q6H PRN 07/13/20 01/26/21 History 7.5-325] hydrALAZINE HCL [Apresoline] 50 mg PO TID #90 tab 07/16/20 01/26/21 Rx Furosemide [Lasix] 80 mg PO BID PRN 11/01/20 01/26/21 History INSULIN ASPART (NovoLOG) [NovoLOG 12 unit SQ AC-TID 12/08/20 01/26/21 History (formulary)] Zinc 50 mg PO BID 12/08/20 01/26/21 History Albuterol Sulfate [Ventolin HFA] 2 puff INHALATION RT-QID PRN 01/26/21 01/26/21 History Apixaban [Eliquis] 2.5 mg PO BID 01/26/21 01/26/21 History Loperamide [Imodium] 4 mg PO Q6H PRN 01/26/21 01/26/21 History Allergies Allergy/AdvReac Type Severity Reaction Status Date / Time sulfamethoxazole AdvReac Nausea & Verified 01/26/21 12:09 [From Bactrim] Vomiting,dyspnea trimethoprim [From Bactrim] AdvReac Nausea & Verified 01/26/21 12:09 Vomiting,dyspnea Physical Exam Vitals: Vital Signs Temp Pulse Pulse Resp BP BP Pulse Ox 01/27/21 08:21 98.1 F 71 18 140/70 98 01/27/21 04:00 62 18 154/80 94 L 01/27/21 02:00 68 18 01/27/21 00:19 68 18 01/27/21 00:00 98.3 F 68 18 143/73 94 L 01/26/21 22:27 71 18 162/65 98 01/26/21 19:00 57 L 18 146/68 01/26/21 18:00 55 L 18 141/70 01/26/21 17:45 98.4 F 68 18 143/73 94 L 01/26/21 17:00 61 18 154/71 96 01/26/21 16:00 58 L 18 158/71 95 01/26/21 15:00 61 18 158/88 95 01/26/21 14:00 64 18 162/89 94 L 01/26/21 12:06 98.3 F 75 22 183/76 92 L Intake and Output 01/26/21 01/27/21 01/27/21 22:59 06:59 14:59 Intake Total 1999 240 240 Output Total 0 Balance 1999 240 240 Intake: Oral 240 240 Hemodialysis 1999 Output: Urine 0 Other: # Voids 0 Weight 104.326 kg 108.2 kg Results - Lab Results Most recent lab results Calcium 8.9 mg/dL (8.4-10.2) 01/26/21 13:58 Phosphorus 6.9 mg/dL (2.5-4.5) H 01/26/21 13:58 Magnesium 2.9 mg/dL (1.6-2.3) H 01/26/21 13:58 01/27/21 10:20 01/26/21 13:58 Assessment and Plan Plan: Assessment: 1. End-stage renal disease maintained on hemodialysis on Sunday schedule. 2. Diabetes mellitus with hypoglycemia. Blood sugar stable this morning. 3. Chronic kidney disease mineral bone disease maintained on PhosLo. 4. Hypertension with chronic kidney disease. Controlled. 5. Hyperkalemia secondary to chronic kidney disease. 6. Anemia of chronic kidney disease. Plan: Currently seen was undergoing hemodialysis. Another treatment tomorrow per her outpatient schedule. Add Chay. Thank you for the consultation. I will continue to follow the patient during her hospital stay.
[2021-01-27 11:09] VITALS: BMI 42.3
[2021-01-27 11:13] LABS: Calcium 8.5 mg/dL (8.4-10.2); Potassium 4.2 mmol/L (3.5-5.1)
[2021-01-27] MEDS ORDERED: DARBEPOETIN ALFA 40 MCG/0.4 ML SYRINGE SQ SCH (12:00)
[2021-01-27 12:04] LABS: Glucose,Whole Blood 170 mg/dL (75-99)
[2021-01-27] MEDS: hydrALAZINE HCL 50 MG TAB PO SCH (13:11)
[2021-01-27] MEDS: ZINC SULFATE 220 MG CAP PO SCH (13:11)
[2021-01-27] MEDS: APIXABAN 2.5 MG TABLET PO SCH (13:11)
[2021-01-27 13:19] VITALS: PULSE 72
--- NOTE | 2021-01-27 15:21 | P.GSCN ---
History of Present Illness Consult date: 01/27/21 Reason for Consult: Bilateral lower extremity wounds Requesting physician: Mack Martinez History of present illness: This is a 65-year-old obese female patient who follows on an outpatient basis with Dr. Ingram. She has multiple medical comorbidities including diabetes, end-stage renal disease on dialysis, peripheral neuropathy, and chronic congestive heart failure. She presented to [facility] emergency room with complaints of hypoglycemia, weakness, drowsiness. She was admitted for evaluation and treatment of heart failure, renal failure, anemia, and slightly elevated troponin. She was noted to have wounds to her bilateral lower extremities and the wound care center was consulted for treatment recommendations Review of Systems - Constitutional Reports as per HPI, Reports lethargy, Reports malaise - Integumentary Reports wounds Past Medical History Past Medical History: Diabetes Mellitus, Dialysis, Deep Vein Thrombosis (DVT), Hypertension, Renal Disease Additional Past Medical History / Comment(s): ESRD with hemodialysis,MWF, IDDM type II, past DKA, neuropathy bilateral feet/legs and alittle in hands, "fast heart rate"-had cardiac ablation, lymphedema bilateral lower legs/feet, gout R knee, mineral bone disease, IBS, R sided Mustafa's palsey.skin CA on back removed. covid 19 in October History of Any Multi-Drug Resistant Organisms: None Reported Past Surgical History: Appendectomy, Cardiac Ablation, Section, Cholecystectomy, Tubal Ligation Additional Past Surgical History / Comment(s): bilateral cataract removal with lens implants, C-sections, bilateral benign breast biopsies, AV graft left arm done 06-23-16 for dialysis, colonoscopy. Past Anesthesia/Blood Transfusion Reactions: Motion Sickness, Postoperative Nausea & Vomiting (PONV) Past Psychological History: No Psychological Hx Reported Additional Psychological History / Comment(s): Pt resides with her spouse. She is independent. She uses a walker. She drives. . Smoking Status: Never smoker Past Alcohol Use History: None Reported Past Drug Use History: None Reported - Past Family History Father Family Medical History: Cancer, Diabetes Mellitus Additional Family Medical History / Comment(s): Father had prostate cancer. Mother Family Medical History: Cancer Additional Family Medical History / Comment(s): Mother had breast cancer. Medications and Allergies Home Medications Medication Instructions Recorded Confirmed Type Gabapentin [Neurontin] 300 mg PO DAILY PRN 06/27/16 01/26/21 History Aspirin [Adult Low Dose Aspirin EC] 81 mg PO DAILY 09/16/16 01/26/21 History amLODIPine [Norvasc] 10 mg PO HS 11/29/16 01/26/21 History Lidocaine-Prilocaine Cream [Emla 1 applic TOPICAL TUTHSA PRN 05/19/20 01/26/21 History Cream 2.5%/2.5%] Ondansetron HCl [Zofran] 4 mg PO Q8H PRN 05/19/20 01/26/21 History Calcium Acetate [PhosLo] 1,334 mg PO AC-BID 07/12/20 01/26/21 History Calcium Acetate [PhosLo] 667 mg PO DAILY PRN 07/12/20 01/26/21 History INSULIN ASPART (NovoLOG) [NovoLOG See Protocol SQ AC-TID 07/12/20 01/26/21 History (formulary)] HYDROcodone/APAP 7.5-325MG [[place] 1 tablet PO Q6H PRN 07/13/20 01/26/21 History 7.5-325] hydrALAZINE HCL [Apresoline] 50 mg PO TID #90 tab 07/16/20 01/26/21 Rx Furosemide [Lasix] 80 mg PO BID PRN 11/01/20 01/26/21 History Zinc 50 mg PO BID 12/08/20 01/26/21 History Albuterol Sulfate [Ventolin HFA] 2 puff INHALATION RT-QID PRN 01/26/21 01/26/21 History Apixaban [Eliquis] 2.5 mg PO BID 01/26/21 01/26/21 History Loperamide [Imodium] 4 mg PO Q6H PRN 01/26/21 01/26/21 History Insulin Glargine,Hum.rec.anlog 15 unit SQ HS #0 01/27/21 01/26/21 Rx [Basaglar Kwikpen U-100] Allergies Allergy/AdvReac Type Severity Reaction Status Date / Time sulfamethoxazole AdvReac Nausea & Verified 01/26/21 12:09 [From Bactrim] Vomiting,dyspnea trimethoprim [From Bactrim] AdvReac Nausea & Verified 01/26/21 12:09 Vomiting,dyspnea Surgical - Exam Vital Signs Temp Pulse Resp BP Pulse Ox 98.3 F 75 22 183/76 92 L 01/26/21 12:06 01/26/21 12:06 01/26/21 12:06 01/26/21 12:01/26/21 12:06 CONSTITUTIONAL: Awake and alert, appears comfortable, cooperative, well- developed, obese, no pain, no acute distress EYES: Pupils equal, round, reactive to light, normal ocular movement ENT: Moist mucous membranes without oral lesions present NECK: No masses, no bruits, trachea midline RESPIRATORY: Lungs sounds clear to auscultation bilaterally. Respirations even, nonlabored. Currently on room air with oxygen saturation 96%. CARDIOVASCULAR: S1, S2 present. Regular rate and rhythm, sinus rhythm on telemetry. Palpable peripheral pulses bilaterally. Bilateral lower extremity edema present. No calf pain or tenderness noted. GASTROINTESTINAL: Abdomen soft, nontender, nondistended without masses or organomegaly noted. There is no rebound or guarding present. Active bowel sounds present 4 quadrants. GENITOURINARY: Deferred INTEGUMENTARY: Skin is warm. 3.5 x 3.5 cm stage II present to right ba, minimal drainage present on dressing. 1 x 1 cm stage II present to left ba, minimal drainage present. No evidence of infection. NEUROLOGIC: Cranial nerves II through XII intact, normal coordination, no obvious motor or sensory deficits, speech is normal MUSKULOSKELETAL: Able to move all extremities, strength equal bilaterally, normal posture PSYCHIATRIC: Alert and oriented to person place and time, appropriate affect, intact judgment and insight Results - Labs 01/27/21 10:20 01/27/21 10:20 Abnormal Lab Results - Last 24 Hours (Table) 01/26/21 01/26/21 01/26/21 Range/Units 13:58 13:58 21:09 RBC (3.80-5.40) m/uL Hgb (11.4-16.0) gm/dL Hct (34.0-46.0) % RDW (11.5-15.5) % Sodium 132 L (137-145) mmol/L Potassium 5.7 H (3.5-5.1) mmol/L Chloride 92 L (98-107) mmol/L BUN 28 H (7-17) mg/dL Creatinine 5.89 H (0.52-1.04) mg/dL Glucose 72 L (74-99) mg/dL POC Glucose (mg/dL) 111 H (75-99) mg/dL Phosphorus 6.9 H (2.5-4.5) mg/dL Magnesium 2.9 H (1.6-2.3) mg/dL AST 46 H (14-36) U/L Alkaline Phosphatase 239 H (38-126) U/L 01/26/21 01/27/21 01/27/21 Range/Units 23:40 06:07 10:20 RBC 2.85 L (3.80-5.40) m/uL Hgb 8.9 L (11.4-16.0) gm/dL Hct 27.4 L (34.0-46.0) % RDW 16.8 H (11.5-15.5) % Sodium (137-145) mmol/L Potassium (3.5-5.1) mmol/L Chloride (98-107) mmol/L BUN (7-17) mg/dL Creatinine (0.52-1.04) mg/dL Glucose (74-99) mg/dL POC Glucose (mg/dL) 161 H 150 H (75-99) mg/dL Phosphorus (2.5-4.5) mg/dL Magnesium (1.6-2.3) mg/dL AST (14-36) U/L Alkaline Phosphatase (38-126) U/L 01/27/21 01/27/21 Range/Units 10:20 11:44 RBC (3.80-5.40) m/uL Hgb (11.4-16.0) gm/dL Hct (34.0-46.0) % RDW (11.5-15.5) % Sodium 131 L (137-145) mmol/L Potassium (3.5-5.1) mmol/L Chloride 97 L (98-107) mmol/L BUN (7-17) mg/dL Creatinine 3.82 H (0.52-1.04) mg/dL Glucose 160 H (74-99) mg/dL POC Glucose (mg/dL) 170 H (75-99) mg/dL Phosphorus (2.5-4.5) mg/dL Magnesium (1.6-2.3) mg/dL AST (14-36) U/L Alkaline Phosphatase (38-126) U/L Diabetes panel 01/26/21 01/27/21 Range/Units 13:58 10:20 Sodium 132 L 131 L (137-145) mmol/L Potassium 5.7 H 4.2 (3.5-5.1) mmol/L Chloride 92 L 97 L (98-107) mmol/L Carbon Dioxide 28 27 (22-30) mmol/L BUN 28 H 17 (7-17) mg/dL Creatinine 5.89 H 3.82 H (0.52-1.04) mg/dL Glucose 72 L 160 H (74-99) mg/dL Calcium 8.9 8.5 (8.4-10.2) mg/dL AST 46 H (14-36) U/L ALT 34 (4-34) U/L Alkaline Phosphatase 239 H (38-126) U/L Total Protein 7.1 (6.3-8.2) g/dL Albumin 3.6 (3.5-5.0) g/dL Calcium panel 01/26/21 01/26/21 01/27/21 Range/Units 13:58 13:58 10:20 Calcium 8.9 8.5 (8.4-10.2) mg/dL Phosphorus 6.9 H (2.5-4.5) mg/dL Albumin 3.6 (3.5-5.0) g/dL Pituitary panel 01/26/21 01/27/21 Range/Units 13:58 10:20 Sodium 132 L 131 L (137-145) mmol/L Potassium 5.7 H 4.2 (3.5-5.1) mmol/L Chloride 92 L 97 L (98-107) mmol/L Carbon Dioxide 28 27 (22-30) mmol/L BUN 28 H 17 (7-17) mg/dL Creatinine 5.89 H 3.82 H (0.52-1.04) mg/dL Glucose 72 L 160 H (74-99) mg/dL Calcium 8.9 8.5 (8.4-10.2) mg/dL Adrenal panel 01/26/21 01/27/21 Range/Units 13:58 10:20 Sodium 132 L 131 L (137-145) mmol/L Potassium 5.7 H 4.2 (3.5-5.1) mmol/L Chloride 92 L 97 L (98-107) mmol/L Carbon Dioxide 28 27 (22-30) mmol/L BUN 28 H 17 (7-17) mg/dL Creatinine 5.89 H 3.82 H (0.52-1.04) mg/dL Glucose 72 L 160 H (74-99) mg/dL Calcium 8.9 8.5 (8.4-10.2) mg/dL Total Bilirubin 0.6 (0.2-1.3) mg/dL AST 46 H (14-36) U/L ALT 34 (4-34) U/L Alkaline Phosphatase 239 H (38-126) U/L Total Protein 7.1 (6.3-8.2) g/dL Albumin 3.6 (3.5-5.0) g/dL Assessment and Plan Assessment: 1. Bilateral lower extremity stage II wounds 2. Insulin dependent diabetes 3. End stage renal disease on dialysis 4. Peripheral neuropathy 5. Chronic heart failure Plan: The patient was seen and examined at the bedside. She has bilateral lower extremity edema. There is a 3.5x3.5 cm stage 2 wound to the mid ba on her right leg and a 1x1 cm stage 2 wound to the ba of her left leg. She states she had blisters which broke. There doesn't appear to be any evidence of infection, no slough present, good granulation tissue present. Minimal drainage present to dressings. At this time our recommendation would be to cleanse the wounds daily with soap and water, apply silvadene cream, cover with 4x4, and wrap both legs from the toes to the knees with jj wraps. She should elevate her legs above the level of the heart at all times except when eating and toileting to reduce edema. We did offer for her to come to the wound care center for follow up but she declined as she feels she has enough to do with dialysis, states her will dress her wounds. Would recommend home care to assist and monitor for healing of her wounds. She was counseled regarding her nutrition status. Medical management of other comorbidities per primary care service. Thank you for this consult. Please call us with any further questions. Time with Patient: Greater than 30
[2021-01-27 15:45] VITALS: TEMP 98.2
--- NOTE | 2021-01-27 16:54 | P.DS ---
Providers Date of admission: 01/26/21 15:43 Attending physician: Mack Martinez Consults: 01/26/21 15:43 Consult Physician Routine Consulting Provider: Ld Downey Consult Reason/Comments: Chronic renal failure, dialysis Do you want consulting provider notified?: Already Contacted 01/26/21 15:50 Consult Physician Routine Consulting Provider: Ld Downey Consult Reason/Comments: ESRD, pulmonary edema Do you want consulting provider notified?: Yes [facility]: 65-year-old pleasant female was brought in because of excessive drowsiness and sleepiness and patient is found to have low blood sugars and 50s. Patient was supposed to go to hemodialysis today because of excessive tiredness and sleepiness she ended up not going there. Patient here can use to have low blood sugars patient is on long-acting insulin as well as pre-meal insulin patient is a diabetic. Patient denied any fever chills. Patient does have a significant edema bilateral lower expertise. Patient does have significant anasarca chest x-ray did show pulmonary edema. Patient also denied any significant shortness of breath. Patient has also some bilateral lower extremities for which I'm consulted wound care. CT of the head is pending chest x-ray showed right lower lobe infiltrate suspicious for pneumonia although patient doesn't have any fever no leukocytosis patient denied any significant cough. Patient does appear to have pulmonary edema rather than pneumonia. Unable to obtain much of the history from the patient because of her excessive drowsiness and sleepiness patient denied any dysuria patient barely makes any urine. 01/27/2021 Patient's confusion completely resolved at this time. It appears patient has metabolic encephalopathy because of clot is secondary to severe hypoglycemia. Patient is only on sliding scale insulin here. Patient blood sugars are within normal limits at this time. Patient will be discharged on decreased dose of long-acting insulin which was decreased from 21 units to 15 units, pre-meal insulin will be discontinued patient will continue with sliding scale insulin patient will follow with her matchbook maker and PCP closely. Wound care evaluated the patient for bilateral lower extremity stage I and 2 ulcerations, recommending Silvadene, not of the ulcer appeared to be infected. Patient had hemodialysis yesterday and today. Patient is awake alert oriented 3 at her baseline patient will be discharged today. PHYSICAL EXAMINATION: GENERAL: The patient is alert and oriented x3, not in any acute distress. Well developed, well nourished. HEENT: Pupils are round and equally reacting to light. EOMI. No scleral icterus. No conjunctival pallor. Normocephalic, atraumatic. No pharyngeal erythema. No thyromegaly. CARDIOVASCULAR: S1 and S2 present. No murmurs, rubs, or gallops. PULMONARY: Chest is clear to auscultation, no wheezing or crackles. ABDOMEN: Soft, nontender, nondistended, normoactive bowel sounds. No palpable organomegaly. MUSCULOSKELETAL: No joint swelling or deformity. EXTREMITIES: No cyanosis, clubbing, or pedal edema. NEUROLOGICAL: Gross neurological examination did not reveal any focal deficits. SKIN: Multiple skin breakdowns and ulcers in bilateral lower extremities significant swelling in bilateral lower extremities. Assessment and Plan Plan: Decreased level of consciousness, drowsiness: Probably multifactorial and mostly metabolic encephalopathy from hyperglycemia and there may be a competent of t oxic encephalopathy from [place] and gabapentin , [place] dose is being decreased these medications were held last night. No other evidence of infection patient will not be started on any antibiotics patient is volume overloaded -Volume overload, pulmonary edema secondary to end-stage renal disease patient had hemodialysis yesterday and today patient appears to be still be due to volume overloaded at that appears to have significantly decreased pulmonary edema. -Recent Covid 19 infection in month of October. -End-stage renal disease hemodialysis dependent patient is Sunday hemodialysis. -Type 2 diabetes mellitus: Uncontrolled and low blood sugars -History of DVT for which patient is on Eliquis which will be continued -Patient had a recent GI bleed -Hypertension Patient Condition at Discharge: Fair Plan - Discharge Summary Discharge Rx Participant: No New Discharge Prescriptions: Continue Gabapentin [Neurontin] 300 mg PO DAILY PRN PRN Reason: NERVE PAIN Aspirin [Adult Low Dose Aspirin EC] 81 mg PO DAILY amLODIPine [Norvasc] 10 mg PO HS Ondansetron HCl [Zofran] 4 mg PO Q8H PRN PRN Reason: Nausea And Vomiting Lidocaine-Prilocaine Cream [Emla Cream 2.5%/2.5%] 1 applic TOPICAL TUTHSA PRN PRN Reason: DIALYIS DAYS INSULIN ASPART (NovoLOG) [NovoLOG (formulary)] See Protocol SQ AC-TID Calcium Acetate [PhosLo] 667 mg PO DAILY PRN PRN Reason: with a snack Calcium Acetate [PhosLo] 1,334 mg PO AC-BID HYDROcodone/APAP 7.5-325MG [[place] 7.5-325] 1 tablet PO Q6H PRN PRN Reason: Pain hydrALAZINE HCL [Apresoline] 50 mg PO TID #90 tab Furosemide [Lasix] 80 mg PO BID PRN PRN Reason: Edema Zinc 50 mg PO BID Loperamide [Imodium] 4 mg PO Q6H PRN PRN Reason: Diarrhea Apixaban [Eliquis] 2.5 mg PO BID Albuterol Sulfate [Ventolin HFA] 2 puff INHALATION RT-QID PRN PRN Reason: Shortness Of Breath Changed Insulin Glargine,Hum.rec.anlog [Basaglar Kwikpen U-100] 15 unit SQ HS #0 Discontinued INSULIN ASPART (NovoLOG) [NovoLOG (formulary)] 12 unit SQ AC-TID Discharge Medication List Gabapentin [Neurontin] 300 mg PO DAILY PRN 06/27/16 [History] Aspirin [Adult Low Dose Aspirin EC] 81 mg PO DAILY 09/16/16 [History] amLODIPine [Norvasc] 10 mg PO HS 11/29/16 [History] Lidocaine-Prilocaine Cream [Emla Cream 2.5%/2.5%] 1 applic TOPICAL TUTHSA PRN 05/19/20 [History] Ondansetron HCl [Zofran] 4 mg PO Q8H PRN 05/19/20 [History] Calcium Acetate [PhosLo] 1,334 mg PO AC-BID 07/12/20 [History] Calcium Acetate [PhosLo] 667 mg PO DAILY PRN 07/12/20 [History] INSULIN ASPART (NovoLOG) [NovoLOG (formulary)] See Protocol SQ AC-TID 07/12/20 [History] HYDROcodone/APAP 7.5-325MG [[place] 7.5-325] 1 tablet PO Q6H PRN 07/13/20 [History] hydrALAZINE HCL [Apresoline] 50 mg PO TID #90 tab 07/16/20 [Rx] Furosemide [Lasix] 80 mg PO BID PRN 11/01/20 [History] Zinc 50 mg PO BID 12/08/20 [History] Albuterol Sulfate [Ventolin HFA] 2 puff INHALATION RT-QID PRN 01/26/21 [History] Apixaban [Eliquis] 2.5 mg PO BID 01/26/21 [History] Loperamide [Imodium] 4 mg PO Q6H PRN 01/26/21 [History] Insulin Glargine,Hum.rec.anlog [Basaglar Kwikpen U-100] 15 unit SQ HS #0 01/27/21 [Rx] Follow up Appointment(s)/Referral(s): Piedad Ingram III, MD [Primary Care Provider] - 02/01/21 11:00 am (appointment with [facility]) Patient Instructions/Handouts: Heart Failure (DC), Chronic Kidney Disease (DC) Activity/Diet/Wound Care/Special Instructions: Wound care to bilateral lower extremities: cleanse with soap and water, apply silvadene cream to wounds, cover with 4x4, wrap from toes to knees with jj wrap. Elevate lower extremities above the level of the heart at all time except when eating or toileting Discharge Disposition: HOME SELF-CARE
[2021-01-27 17:41] VITALS: BP 145/77
== END 2021-01-27 17:47 | disposition home or self-care (01) | DRG 637 ==
LOC: EC 11:53 → 3SCARD 15:43
PROVIDERS: ADMIT Internal Medicine; ATTEND Internal Medicine
PROC: 5A1D70Z Performance of Urinary Filtration, Intermittent, Less than 6 Hours Per Day (ICD-10-PCS; principal; 2021-01-26)
DX: E11.649 Type 2 diabetes mellitus with hypoglycemia without coma (principal); G93.41 Metabolic encephalopathy; I13.2 Hypertensive heart and chronic kidney disease with heart failure and with stage 5 chronic kidney disease, or end stage renal disease; Z68.41 Body mass index [BMI] 40.0-44.9, adult; L97.929 Non-pressure chronic ulcer of unspecified part of left lower leg with unspecified severity; N18.6 End stage renal disease; G92 Toxic encephalopathy; I50.9 Heart failure, unspecified; E11.22 Type 2 diabetes mellitus with diabetic chronic kidney disease; Z20.822 Contact with and (suspected) exposure to COVID-19; Z79.82 Long term (current) use of aspirin; Z79.4 Long term (current) use of insulin; E11.42 Type 2 diabetes mellitus with diabetic polyneuropathy; Z83.3 Family history of diabetes mellitus; Z80.42 Family history of malignant neoplasm of prostate; Z80.3 Family history of malignant neoplasm of breast; Z99.2 Dependence on renal dialysis; Z79.01 Long term (current) use of anticoagulants; Z86.16 Personal history of COVID-19; Z86.718 Personal history of other venous thrombosis and embolism; E87.5 Hyperkalemia; D63.1 Anemia in chronic kidney disease; T40.605A Adverse effect of unspecified narcotics, initial encounter; E11.65 Type 2 diabetes mellitus with hyperglycemia; E66.9 Obesity, unspecified; M89.8X9 Other specified disorders of bone, unspecified site; Z85.828 Personal history of other malignant neoplasm of skin; Z96.1 Presence of intraocular lens; Z98.41 Cataract extraction status, right eye; Z98.42 Cataract extraction status, left eye; T39.1X5A Adverse effect of 4-Aminophenol derivatives, initial encounter; T42.6X5A Adverse effect of other antiepileptic and sedative-hypnotic drugs, initial encounter
CPT/HCPCS: 36415; 70450; 71045; 71046; 80048; 80053; 82550; 83605; 83735; 83880; 84100; 84484; 85025; 85027; 85610; 85730; 87635; 90935; 93005; 99285

== ENCOUNTER 2021-01-28 14:07 | Inpatient (IN) | payer MEDICARE, BC ==
[2021-01-28] MEDS ORDERED: AMIODARONE 360 MG in DEXTROSE 5% IN WATER 200 ML IV ONE ×2 (14:13)
[2021-01-28] MEDS ORDERED: DEXTROSE 5% IN WATER 100 ML with AMIODARONE 150 MG IV ONE (14:13)
--- NOTE | 2021-01-28 14:20 | ED ---
General Adult HPI - General Chief complaint: Cardiac Arrest/CPR Stated complaint: Cardiac Arrest Time Seen by Provider: 01/28/21 14:13 Source: patient, EMS, RN notes reviewed, old records reviewed Mode of arrival: EMS Limitations: altered mental status - History of Present Illness Initial comments: 65-year-old female presenting as out of Hospital cardiac arrest. Patient has previous history of end-stage renal disease, hypertension, diabetes, CAD, pre vious episode of ventricular tachycardia. She had been in her usual state of health this morning, had run some errands returned home and apparently had an episode where she felt nauseated. She had a cardiac arrest at home at approximately 1310. Family did initiate CPR according to EMS. Fire department arrived on scene and found the patient to be in V. fib patient was defibrillated CPR was continued. Upon EMS arrival the patient was given epinephrine second defibrillation and had return of spontaneous circulation. She had been intubated by EMS. She remained in sinus rhythm during transport. She had return of spontaneous circulation at approximately 1335. She arrives to the emergency department at 1415. - Related Data Home Medications Medication Instructions Recorded Confirmed Gabapentin [Neurontin] 300 mg PO DAILY PRN 06/27/16 01/28/21 Aspirin [Adult Low Dose Aspirin EC] 81 mg PO DAILY 09/16/16 01/28/21 amLODIPine [Norvasc] 10 mg PO HS 11/29/16 01/28/21 Lidocaine-Prilocaine Cream [Emla 1 applic TOPICAL TUTHSA PRN 05/19/20 01/28/21 Cream 2.5%/2.5%] Ondansetron HCl [Zofran] 4 mg PO Q8H PRN 05/19/20 01/28/21 Calcium Acetate [PhosLo] 1,334 mg PO AC-BID 07/12/20 01/28/21 Calcium Acetate [PhosLo] 667 mg PO DAILY PRN 07/12/20 01/28/21 INSULIN ASPART (NovoLOG) [NovoLOG See Protocol SQ AC-TID 07/12/20 01/28/21 (formulary)] Furosemide [Lasix] 80 mg PO BID PRN 11/01/20 01/28/21 Zinc 50 mg PO BID 12/08/20 01/28/21 Albuterol Sulfate [Ventolin HFA] 2 puff INHALATION RT-QID PRN 01/26/21 01/28/21 Apixaban [Eliquis] 2.5 mg PO BID 01/26/21 01/28/21 Loperamide [Imodium] 4 mg PO Q6H PRN 01/26/21 01/28/21 Previous Rx's Medication Instructions Recorded hydrALAZINE HCL [Apresoline] 50 mg PO TID #90 tab 07/16/20 HYDROcodone/APAP 7.5-325MG [[place] 1 tablet PO BID #0 01/27/21 7.5-325] Insulin Glargine,Hum.rec.anlog 15 unit SQ HS #0 01/27/21 [Basaglar Kwikpen U-100] Allergies Allergy/AdvReac Type Severity Reaction Status Date / Time sulfamethoxazole AdvReac Nausea & Verified 01/28/21 14:52 [From Bactrim] Vomiting,dyspnea trimethoprim [From Bactrim] AdvReac Nausea & Verified 01/28/21 14:52 Vomiting,dyspnea Review of Systems ROS Statement: Those systems with pertinent positive or pertinent negative responses have been documented in the HPI. ROS Other: All systems not noted in ROS Statement are negative. Past Medical History Past Medical History: Diabetes Mellitus, Dialysis, Deep Vein Thrombosis (DVT), Hypertension, Renal Disease Additional Past Medical History / Comment(s): ESRD with hemodialysis,MWF, IDDM type II, past DKA, neuropathy bilateral feet/legs and alittle in hands, "fast heart rate"-had cardiac ablation, lymphedema bilateral lower legs/feet, gout R knee, mineral bone disease, IBS, R sided Mustafa's palsey.skin CA on back removed. covid 19 in October History of Any Multi-Drug Resistant Organisms: None Reported Past Surgical History: Appendectomy, Cardiac Ablation, Section, Cholecystectomy, Tubal Ligation Additional Past Surgical History / Comment(s): bilateral cataract removal with lens implants, C-sections, bilateral benign breast biopsies, AV graft left arm done 06-23-16 for dialysis, colonoscopy. Past Anesthesia/Blood Transfusion Reactions: Motion Sickness, Postoperative Nausea & Vomiting (PONV) Past Psychological History: No Psychological Hx Reported Smoking Status: Never smoker Past Alcohol Use History: None Reported Past Drug Use History: None Reported - Past Family History Father Family Medical History: Cancer, Diabetes Mellitus Additional Family Medical History / Comment(s): Father had prostate cancer. Mother Family Medical History: Cancer Additional Family Medical History / Comment(s): Mother had breast cancer. General Exam Limitations: altered mental status General appearance: obtunded Eye exam: Present: PERRL (Pupils are reactive) ENT exam: Present: other (Patient is intubated by EMS) Respiratory exam: Present: respiratory distress, rales, rhonchi Cardiovascular Exam: Present: regular rate, normal rhythm GI/Abdominal exam: Present: soft, distended. Absent: tenderness, guarding, rebound Extremities exam: Present: pedal edema Neurological exam: Present: other (Patient intubated, no spontaneous limb movement, she is breathing over the vent. Pupils are reactive. ) Skin exam: Present: warm. Absent: cyanosis Course Vital Signs 01/28/21 01/28/21 01/28/21 14:09 14:14 14:51 Temperature 100.1 F H Pulse Rate 90 Pulse Rate [ 90 79 Left Supine Pulse Oximetery ] Respiratory 20 20 22 Rate Blood Pressure 148/77 151/79 [Right Arm] O2 Sat by Pulse 100 100 100 Oximetry 01/28/21 01/28/21 15:01 15:16 Temperature Pulse Rate Pulse Rate [ 75 70 Left Supine Pulse Oximetery ] Respiratory 30 H Rate Blood Pressure 137/71 135/75 [Right Arm] O2 Sat by Pulse 100 100 Oximetry - Reevaluation(s) Reevaluation #1: 01/28/21 15:23 Patient remains hemodynamically stable in sinus rhythm. She has been loaded with amiodarone and is currently on amiodarone infusion. She is on her percent on the ventilator. She will be admitted to the ICU. EKG Findings - EKG Comments: EKG Findings:: Normal sinus rhythm, no ST segment elevation, rate of 91, HI interval 170, QRS duration 90, QTC 489. Medical Decision Making - Medical Decision Making 65-year-old female with presented in cardiac arrest, ventricular fibrillation arrest with been intubated by EMS prior to arrival, received defibrillation twice and one round of epinephrine prior to arrival. Patient does have equal reactive pupils. She is breathing over the ventilator. She is not following commands. She started on a propofol infusion. She remains in sinus rhythm with stable blood pressure. Chest x-ray showing ET tube as well as nasogastric tube and bilateral pulmonary edema consistent with CHF. Patient has leukocytosis, 14.8, hemoglobin 9.3, she has a normal potassium, normal magnesium. Minimal troponin elevation 0.079. Case is been discussed with cardiology team, there is practitioner Kellie, and the admitting physician Dr. Martinez. The pulmonary waredresser has been paged. Nephrology will be placed on consult. - Lab Data Result diagrams: 01/28/21 14:38 01/28/21 14:38 Lab Results 01/28/21 01/28/21 01/28/21 Range/Units 14:37 14:38 14:38 WBC 14.8 H (3.8-10.6) k/uL RBC 3.07 L (3.80-5.40) m/uL Hgb 9.3 L (11.4-16.0) gm/dL Hct 30.1 L (34.0-46.0) % MCV 98.1 (80.0-100.0) fL MCH 30.1 (25.0-35.0) pg MCHC 30.7 L (31.0-37.0) g/dL RDW 17.0 H (11.5-15.5) % Plt Count 327 (150-450) k/uL MPV 7.4 Neutrophils % 86 % Lymphocytes % 10 % Monocytes % 3 % Eosinophils % 0 % Basophils % 1 % Neutrophils # 12.7 H (1.3-7.7) k/uL Lymphocytes # 1.5 (1.0-4.8) k/uL Monocytes # 0.4 (0-1.0) k/uL Eosinophils # 0.1 (0-0.7) k/uL Basophils # 0.1 (0-0.2) k/uL Hypochromasia Marked Anisocytosis Slight Macrocytosis Slight Sodium 134 L (137-145) mmol/L Potassium 4.0 (3.5-5.1) mmol/L Chloride 95 L (98-107) mmol/L Carbon Dioxide 24 (22-30) mmol/L Anion Gap 15 mmol/L BUN 12 (7-17) mg/dL Creatinine 3.09 H (0.52-1.04) mg/dL Est GFR (CKD-EPI)AfAm 17 (>60 ml/min/1.73 sqM) Est GFR (CKD-EPI)NonAf 15 (>60 ml/min/1.73 sqM) Glucose 170 H (74-99) mg/dL POC Glucose (mg/dL) (75-99) mg/dL POC Glu Department Chairperson ID Calcium 8.8 (8.4-10.2) mg/dL Magnesium 2.2 (1.6-2.3) mg/dL Total Bilirubin 0.9 (0.2-1.3) mg/dL AST 43 H (14-36) U/L ALT 28 (4-34) U/L Alkaline Phosphatase 239 H (38-126) U/L Troponin I (0.000-0.034) ng/mL Total Protein 7.6 (6.3-8.2) g/dL Albumin 3.9 (3.5-5.0) g/dL Urine Color Yellow Urine Appearance Clear (Clear) Urine pH 8.5 H (5.0-8.0) Ur Specific [place] 1.013 (1.001-1.035) Urine Protein 3+ H (Negative) Urine Glucose (UA) 2+ H (Negative) Urine Ketones Negative (Negative) Urine Blood Trace H (Negative) Urine Nitrite Negative (Negative) Urine Bilirubin Negative (Negative) Urine Urobilinogen <2.0 (<2.0) mg/dL Ur Leukocyte Esterase Negative (Negative) Urine RBC 16 H (0-5) /hpf Urine WBC 6 H (0-5) /hpf Ur Squamous Epith Cells <1 (0-4) /hpf Urine Bacteria Rare H (None) /hpf Urine Mucus Rare H (None) /hpf 01/28/21 01/28/21 Range/Units 14:38 14:39 WBC (3.8-10.6) k/uL RBC (3.80-5.40) m/uL Hgb (11.4-16.0) gm/dL Hct (34.0-46.0) % MCV (80.0-100.0) fL MCH (25.0-35.0) pg MCHC (31.0-37.0) g/dL RDW (11.5-15.5) % Plt Count (150-450) k/uL MPV Neutrophils % % Lymphocytes % % Monocytes % % Eosinophils % % Basophils % % Neutrophils # (1.3-7.7) k/uL Lymphocytes # (1.0-4.8) k/uL Monocytes # (0-1.0) k/uL Eosinophils # (0-0.7) k/uL Basophils # (0-0.2) k/uL Hypochromasia Anisocytosis Macrocytosis Sodium (137-145) mmol/L Potassium (3.5-5.1) mmol/L Chloride (98-107) mmol/L Carbon Dioxide (22-30) mmol/L Anion Gap mmol/L BUN (7-17) mg/dL Creatinine (0.52-1.04) mg/dL Est GFR (CKD-EPI)AfAm (>60 ml/min/1.73 sqM) Est GFR (CKD-EPI)NonAf (>60 ml/min/1.73 sqM) Glucose (74-99) mg/dL POC Glucose (mg/dL) 156 H (75-99) mg/dL POC Glu Department Chairperson ID Fortunato Antonio Calcium (8.4-10.2) mg/dL Magnesium (1.6-2.3) mg/dL Total Bilirubin (0.2-1.3) mg/dL AST (14-36) U/L ALT (4-34) U/L Alkaline Phosphatase (38-126) U/L Troponin I 0.079 H* (0.000-0.034) ng/mL Total Protein (6.3-8.2) g/dL Albumin (3.5-5.0) g/dL Urine Color Urine Appearance (Clear) Urine pH (5.0-8.0) Ur Specific [place] (1.001-1.035) Urine Protein (Negative) Urine Glucose (UA) (Negative) Urine Ketones (Negative) Urine Blood (Negative) Urine Nitrite (Negative) Urine Bilirubin (Negative) Urine Urobilinogen (<2.0) mg/dL Ur Leukocyte Esterase (Negative) Urine RBC (0-5) /hpf Urine WBC (0-5) /hpf Ur Squamous Epith Cells (0-4) /hpf Urine Bacteria (None) /hpf Urine Mucus (None) /hpf Critical Care Time Critical Care Time: Yes Total Critical Care Time: 35 Disposition Clinical Impression: Cardiac arrest, Ventricular fibrillation, Signs of return of spontaneous circulation Disposition: ADMITTED IP TO THIS HOSP Condition: Serious Is patient prescribed a controlled substance at d/c from ED?: No Referrals: Piedad Ingram III, MD [Primary Care Provider] - 1-2 days Decision to Admit Reason: Admit from EC Decision Date: 01/28/21 Decision Time: 15:26
--- NOTE | 2021-01-28 14:34 | XR ---
EXAMINATION TYPE: XR chest 1V portable DATE OF EXAM: 01/28/2021 COMPARISON: Chest x-ray 01/27/2021 HISTORY: Ventricular fibrillation TECHNIQUE: Single frontal view of the chest is obtained. FINDINGS: There is been interval placement of an endotracheal tube. NG tube is also present, tubes a re overlying appropriate positions. Bilateral airspace disease is present. Heart is enlarged. Aorta i s dense. No evident pneumothorax or pleural effusion. Overlying artifacts, defibrillator pads. IMPRESSION: Correlate for congestive heart failure. Pneumonia not excluded.
[2021-01-28 14:50] LABS: Glucose,Whole Blood 156 mg/dL (75-99)
[2021-01-28 14:54] LABS: Albumin 3.9 g/dL (3.5-5.0); Calcium 8.8 mg/dL (8.4-10.2); Magnesium 2.2 mg/dL (1.6-2.3); Total Bilirubin 0.9 mg/dL (0.2-1.3); Total Protein 7.6 g/dL (6.3-8.2)
[2021-01-28] MEDS ORDERED: FUROSEMIDE 80 MG TAB PO PRN (14:57)
[2021-01-28] MEDS ORDERED: ALBUTEROL NEBULIZED 2.5 MG/3 ML INHALATION PRN (14:57)
[2021-01-28] MEDS ORDERED: LIDOCAINE-PRILOCAINE 2.5-2.5% CREAM 5 GM TUBE TOPICAL PRN (14:57)
[2021-01-28] MEDS ORDERED: CALCIUM ACETATE 667 MG TAB PO PRN (14:57)
[2021-01-28 15:12] LABS: Appearance,Urine Clear (Clear); Bacteria,Urine Rare /hpf; Bilirubin,Urine Negative (Negative); Blood,Urine Trace (Negative); Color,Urine Yellow; Glucose,Urine (UA) 2+ (Negative); Ketones,Urine Negative (Negative); Leukocyte Esterase,Urine Negative (Negative); Mucus,Urine Rare /hpf; Nitrite,Urine Negative (Negative); PH, Urine 8.5 (5.0-8.0); Protein,Urine 3+ (Negative); RBC,Urine 16 /hpf (0-5); Specific Gravity,Urine 1.013 (1.001-1.035); Squamous Epithelial Cell,Urine <1 /hpf (0-4); Urobilinogen,Urine <2.0 mg/dL (<2.0); WBC,Urine 6 /hpf (0-5)
[2021-01-28 15:13] LABS: Anisocytosis Slight; Basophils # (A) 0.1 k/uL (0-0.2); Basophils % (A) 1 %; Eosinophils # (A) 0.1 k/uL (0-0.7); Eosinophils % (A) 0 %; HCT 30.1 % (34.0-46.0); HGB 9.3 gm/dL (11.4-16.0); Hypochromasia Marked; Lymphocytes # (A) 1.5 k/uL (1.0-4.8); Lymphocytes % (A) 10 %; MCH 30.1 pg (25.0-35.0); MCHC 30.7 g/dL (31.0-37.0); MCV 98.1 fL (80.0-100.0); Macrocytosis Slight; Mean Platelet Volume 7.4; Monocytes # (A) 0.4 k/uL (0-1.0); Monocytes % (A) 3 %; Neutrophils # (A) 12.7 k/uL (1.3-7.7); Neutrophils % (A) 86 %; Platelet Count 327 k/uL (150-450); RBC 3.07 m/uL (3.80-5.40); WBC 14.8 k/uL (3.8-10.6)
[2021-01-28] MEDS ORDERED: NALOXONE 0.4 MG/ML 1 ML VIAL IV PRN (15:19)
[2021-01-28] MEDS ORDERED: ACETAMINOPHEN TAB 325 MG TAB PO PRN (15:19)
[2021-01-28 15:24] LABS: INR 1.3 (<1.2); Prothrombin Time 13.2 sec (9.0-12.0)
--- NOTE | 2021-01-28 15:42 | P.HPIM ---
History of Present Illness Patient is a pleasant 65-year-old the female was discharged from my service yesterday after she was treated for encephalopathy related to hypoglycemia. Patient had a cardiorespiratory arrest was pretty functional ambulate and go crow pping at the time when she had a cardiorespiratory arrest, CPR was started and patient was later found to have went to her tachycardia, patient returned to sinus rhythm and 25 minutes subsequently was intubated and brought to emergency department. Patient did have history of ventricular tachycardia in the past patient was started on amiodarone at that time. Patient does have medical multiple medical problems including end-stage renal disease dialysis dependent chest x-ray showing significant infiltrate in the right lung mostly appears to be volume overload patient does have low-grade fever which can be secondary to cardiorespiratory arrest but patient was empirically started on Zosyn and p atient is being admitted to ICU patient is presently intubated with FiO2 of 100% PEEP of 5 patient is breathing over the ventilator patient is on assist- control/volume controlled ventilation, on propofol patient does have conjunctival and corneal reflexes, does have gag reflex. No significant elect rolyte abnormalities were appreciated. Review of Systems Unable to obtain at this time Past Medical History Past Medical History: Diabetes Mellitus, Dialysis, Deep Vein Thrombosis (DVT), Hypertension, Renal Disease Additional Past Medical History / Comment(s): ESRD with hemodialysis,MWF, IDDM type II, past DKA, neuropathy bilateral feet/legs and alittle in hands, "fast heart rate"-had cardiac ablation, lymphedema bilateral lower legs/feet, gout R knee, mineral bone disease, IBS, R sided Mustafa's palsey.skin CA on back removed. covid 19 in October History of Any Multi-Drug Resistant Organisms: None Reported Past Surgical History: Appendectomy, Cardiac Ablation, Section, Cholecystectomy, Tubal Ligation Additional Past Surgical History / Comment(s): bilateral cataract removal with lens implants, C-sections, bilateral benign breast biopsies, AV graft left arm done 06-23-16 for dialysis, colonoscopy. Past Anesthesia/Blood Transfusion Reactions: Motion Sickness, Postoperative Nausea & Vomiting (PONV) Past Psychological History: No Psychological Hx Reported Smoking Status: Never smoker Past Alcohol Use History: None Reported Past Drug Use History: None Reported - Past Family History Father Family Medical History: Cancer, Diabetes Mellitus Additional Family Medical History / Comment(s): Father had prostate cancer. Mother Family Medical History: Cancer Additional Family Medical History / Comment(s): Mother had breast cancer. Medications and Allergies Home Medications Medication Instructions Recorded Confirmed Type Gabapentin [Neurontin] 300 mg PO DAILY PRN 06/27/16 01/28/21 History Aspirin [Adult Low Dose Aspirin EC] 81 mg PO DAILY 09/16/16 01/28/21 History amLODIPine [Norvasc] 10 mg PO HS 11/29/16 01/28/21 History Lidocaine-Prilocaine Cream [Eml[place] 1 applic TOPICAL TUTHSA PRN 05/19/20 01/28/21 History Cream 2.5%/2.5%] Ondansetron HCl [Zofran] 4 mg PO Q8H PRN 05/19/20 01/28/21 History Calcium Acetate [PhosLo] 1,334 mg PO AC-BID 07/12/20 01/28/21 History Calcium Acetate [PhosLo] 667 mg PO DAILY PRN 07/12/20 01/28/21 History INSULIN ASPART (NovoLOG) [NovoLOG See Protocol SQ AC-TID 07/12/20 01/28/21 History (formulary)] hydrALAZINE HCL [Apresoline] 50 mg PO TID #90 tab 07/16/20 01/28/21 Rx Furosemide [Lasix] 80 mg PO BID PRN 11/01/20 01/28/21 History Zinc 50 mg PO BID 12/08/20 01/28/21 History Albuterol Sulfate [Ventolin HFA] 2 puff INHALATION RT-QID PRN 01/26/21 01/28/21 History Apixaban [Eliquis] 2.5 mg PO BID 01/26/21 01/28/21 History Loperamide [Imodium] 4 mg PO Q6H PRN 01/26/21 01/28/21 History HYDROcodone/APAP 7.5-325MG [[place] 1 tablet PO BID #0 01/27/21 01/28/21 Rx 7.5-325] Insulin Glargine,Hum.rec.anlog 15 unit SQ HS #0 01/27/21 01/28/21 Rx [Basaglar Kwikpen U-100] Allergies Allergy/AdvReac Type Severity Reaction Status Date / Time sulfamethoxazole AdvReac Nausea & Verified 01/28/21 14:52 [From Bactrim] Vomiting,dyspnea trimethoprim [From Bactrim] AdvReac Nausea & Verified 01/28/21 14:52 Vomiting,dyspnea Physical Exam Vitals: Vital Signs Temp Pulse Pulse Resp BP Pulse Ox 01/28/21 15:19 36 H 01/28/21 15:16 70 30 H 135/75 100 01/28/21 15:01 75 137/71 100 01/28/21 14:51 79 22 151/79 100 01/28/21 14:14 100.1 F H 90 20 148/77 100 01/28/21 14:09 90 20 100 Intake and Output 01/28/21 01/28/21 01/28/21 06:59 14:59 22:59 Intake Total 1.308 6.54 Balance 1.308 6.54 Intake: Intake, IV Titration 1.308 6.54 Amount propofoL 1,000 mg In 1.308 6.54 Empty Bag 1 bag @ Titrate IV .Q0M [facility] Rx#: [id number] Other: Weight 109 kg PHYSICAL EXAMINATION: GENERAL: Patient is intubated sedated, does have an NG tube with some bloody drainage from the NG tube. HEENT: Pupils are round and and constricted at this time because of propofol. EOMI. No scleral icterus. No conjunctival pallor. Normocephalic, atraumatic. No pharyngeal erythema. No thyromegaly. CARDIOVASCULAR: S1 and S2 present. No murmurs, rubs, or gallops. PULMONARY: Chest is clear to auscultation, no wheezing or crackles. ABDOMEN: Soft, nontender, nondistended, normoactive bowel sounds. No palpable organomegaly. MUSCULOSKELETAL: No joint swelling or deformity. EXTREMITIES: No cyanosis, clubbing, bilateral pedal edema which is actually better compared to yesterday when I discharged patient. NEUROLOGICAL: Intubated sedated SKIN: Stage I and 2 ulcers which doesn't appear to be infected Results CBC & Chem 7: 01/28/21 14:38 01/28/21 14:38 Labs: Abnormal Lab Results - Last 24 Hours (Table) 01/28/21 01/28/21 01/28/21 Range/Units 14:37 14:38 14:38 WBC 14.8 H (3.8-10.6) k/uL RBC 3.07 L (3.80-5.40) m/uL Hgb 9.3 L (11.4-16.0) gm/dL Hct 30.1 L (34.0-46.0) % MCHC 30.7 L (31.0-37.0) g/dL RDW 17.0 H (11.5-15.5) % Neutrophils # 12.7 H (1.3-7.7) k/uL PT (9.0-12.0) sec INR (<1.2) Sodium 134 L (137-145) mmol/L Chloride 95 L (98-107) mmol/L Creatinine 3.09 H (0.52-1.04) mg/dL Glucose 170 H (74-99) mg/dL POC Glucose (mg/dL) (75-99) mg/dL AST 43 H (14-36) U/L Alkaline Phosphatase 239 H (38-126) U/L Troponin I (0.000-0.034) ng/mL Urine pH 8.5 H (5.0-8.0) Urine Protein 3+ H (Negative) Urine Glucose (UA) 2+ H (Negative) Urine Blood Trace H (Negative) Urine RBC 16 H (0-5) /hpf Urine WBC 6 H (0-5) /hpf Urine Bacteria Rare H (None) /hpf Urine Mucus Rare H (None) /hpf 01/28/21 01/28/21 01/28/21 Range/Units 14:38 14:39 14:45 WBC (3.8-10.6) k/uL RBC (3.80-5.40) m/uL Hgb (11.4-16.0) gm/dL Hct (34.0-46.0) % MCHC (31.0-37.0) g/dL RDW (11.5-15.5) % Neutrophils # (1.3-7.7) k/uL PT 13.2 H (9.0-12.0) sec INR 1.3 H (<1.2) Sodium (137-145) mmol/L Chloride (98-107) mmol/L Creatinine (0.52-1.04) mg/dL Glucose (74-99) mg/dL POC Glucose (mg/dL) 156 H (75-99) mg/dL AST (14-36) U/L Alkaline Phosphatase (38-126) U/L Troponin I 0.079 H* (0.000-0.034) ng/mL Urine pH (5.0-8.0) Urine Protein (Negative) Urine Glucose (UA) (Negative) Urine Blood (Negative) Urine RBC (0-5) /hpf Urine WBC (0-5) /hpf Urine Bacteria (None) /hpf Urine Mucus (None) /hpf Assessment and Plan Plan: -Cardiorespiratory arrest leading to respiratory failure: Secondary to went her tachycardia patient was started on amiodarone drip, patient is presently intubated echocardiac exam is being obtained. Cardiology was consulted. And pathology was consulted -Volume overload: Secondary to end-stage renal disease nephrology will be consulted patient may need hemodialysis today. Patient usually usual hemodialysis sessions are Sunday and and Sunday. -Fever: Most probably secondary to cardiorespiratory arrest blood cultures will be obtained chest x-ray findings are more consistent with volume overload that pneumonia patient will empirically be started on Zosyn -Recent covid 19 infection and month of October because of which I'm not rep eating PCR for Covid -End-stage renal disease, dialysis dependent -Type 2 diabetes mellitus patient will be started on sliding scale will hold off on long-acting insulin history of DVT for which patient is on Eliquis -Hypertension
[2021-01-28] MEDS ORDERED: hydrALAZINE HCL 50 MG TAB PO SCH (16:00)
[2021-01-28 16:11] LABS: ABG Base Excess 7.6 mmol/L; ABG HCO3 32 mmol/L (21-25); ABG PCO2 50 mmHg (35-45); ABG PH 7.42 (7.35-7.45); ABG PO2 250 mmHg (83-108); ABG TCO2 34 mmol/L (19-24); Allen Test Performed? Yes
[2021-01-28] MEDS: CALCIUM ACETATE 667 MG TAB PO SCH (17:33)
[2021-01-28 17:40] LABS: Glucose,Whole Blood 191 mg/dL (75-99)
[2021-01-28] MEDS: INSULIN ASPART (NovoLOG) 100 UNIT/ML VIAL SQ SCH ×2 (18:05→21:48)
[2021-01-28] MEDS ORDERED: AMIODARONE 450 MG in DEXTROSE 5% IN WATER 250 ML IV SCH ×2 (20:14)
[2021-01-28] MEDS: PIPERACILLIN-TAZOBACTAM 3.375 GM in SODIUM CHLORIDE 0.9% 100 ML IVPB SCH (21:35)
[2021-01-28] MEDS: amLODIPine 10 MG TAB PO SCH (21:40)
[2021-01-28] MEDS: ZINC SULFATE 220 MG CAP PO SCH (21:42)
[2021-01-28] MEDS: APIXABAN 2.5 MG TABLET PO SCH (21:42)
[2021-01-28 21:43] LABS: Glucose,Whole Blood 187 mg/dL (75-99)
--- NOTE | 2021-01-28 22:42 | CONS ---
SANA Romo is a 65-year-old lady with history of end-stage renal disease, on hemodialysis, who had COVID infection back in October, had a run of nonsustained VT in the setting of hyperkalemia, had dialysis today, was not feeling particularly well, and then suddenly started coughing and then passed out and underwent CPR at home. She had at least 20 minutes of CPR at home, and when the EMS arrived she was in ventricular fibrillation, was resuscitated, intubated, brought into hospital. At the time of my evaluation, she is sedated. EKG does not reveal acute ischemic changes. Troponins are mildly elevated, but they have always been elevated. She was supposed to have an outpatient stress test, but has not had any. At the time of my evaluation she is intubated on vent and sedated. PAST MEDICAL HISTORY: Significant for end-stage renal disease, on hemodialysis, diabetes, diabetic neuropathy, cardiac arrhythmia. PAST SURGICAL HISTORY: Significant for appendectomy, cholecystectomy, tubal ligation. She has a left arm AV graft. MEDICATIONS: Medications include Neurontin, aspirin, amlodipine, Zofran, PhosLo, insulin, Apresoline, Lasix, Ventolin, Eliquis and Imodium. SOCIAL HISTORY: There is no history of smoking. There is no history of EtOH abuse. REVIEW OF SYSTEMS: I am unable to obtain from the patient. PHYSICAL EXAMINATION: On exam, patient is intubated on vent, sedated. Vital signs are stable. Chest exam reveals diminished air entry at the bases. Heart exam reveals first and second heart sounds. No gallop. No murmur. ABDOMEN: Soft. Examination of extremities reveals bilateral pulses. Pulses are palpable. There is 1+ edema. LABS: Labs have been reviewed. Potassium is 4. Troponins are mildly elevated. ASSESSMENT AND PLAN: 1. Status post cardiac arrest. 2. History of ventricular tachycardia. 3. End-stage renal disease, on hemodialysis. PLAN: The exact etiology for cardiac arrest is unclear. We will follow the echocardiogram, follow the patient. It is unclear if the patient suffered hypoxic encephalopathy. We will decide on further course of action based on how she evolves. MMODL / IJN: [id number] /
[2021-01-28 23:48] LABS: Glucose,Whole Blood 200 mg/dL (75-99)
[2021-01-29 04:59] LABS: Anisocytosis Slight; Basophils % (A) 0 %; Eosinophils % (A) 1 %; HCT 27.4 % (34.0-46.0); HGB 8.8 gm/dL (11.4-16.0); Hypochromasia Moderate; Lymphocytes # (A) 1.1 k/uL (1.0-4.8); Lymphocytes % (A) 12 %; MCH 31.3 pg (25.0-35.0); MCHC 32.2 g/dL (31.0-37.0); MCV 97.2 fL (80.0-100.0); Macrocytosis Slight; Mean Platelet Volume 7.9; Monocytes # (A) 0.6 k/uL (0-1.0); Monocytes % (A) 7 %; Neutrophils % (A) 79 %; Platelet Count 287 k/uL (150-450); RBC 2.82 m/uL (3.80-5.40); RDW 16.9 % (11.5-15.5); WBC 8.9 k/uL (3.8-10.6)
[2021-01-29 05:12] LABS: Calcium 8.4 mg/dL (8.4-10.2); Potassium 4.6 mmol/L (3.5-5.1)
[2021-01-29 05:38] LABS: Glucose,Whole Blood 186 mg/dL (75-99)
[2021-01-29] MEDS: INSULIN ASPART (NovoLOG) 100 UNIT/ML VIAL SQ SCH ×3 (05:40→19:26)
[2021-01-29 05:46] LABS: Allen Test Performed? Yes
[2021-01-29 05:47] LABS: ABG Base Excess 6.9 mmol/L; ABG HCO3 30 mmol/L (21-25); ABG PCO2 36 mmHg (35-45); ABG PH 7.52 (7.35-7.45); ABG PO2 130 mmHg (83-108); ABG TCO2 31 mmol/L (19-24)
--- NOTE | 2021-01-29 06:39 | XR ---
EXAMINATION TYPE: XR chest 1V portable DATE OF EXAM: 01/29/2021 COMPARISON: 01/28/2021 HISTORY: Tube placement TECHNIQUE: Single frontal view of the chest is obtained. FINDINGS: There is an ET tube 3.4 cm above the ady. There is an NG tube within the stomach. The interstitium is prominent most likely reflecting mild pulmonary vascular congestion and interstit ial edema. There is a retrocardiac opacity which wasn't present on the prior study most likely repres ents atelectasis although pneumonic infiltrate is not excluded. Heart size is mildly enlarged. The os seous structures are intact IMPRESSION: 1. ET tube 3.4 cm above the ady. 2. Interval development of a retrocardiac opacity as described above. 3. Pulmonary vascular [place] interstitial edema significantly decreased compared to the prior study.
[2021-01-29] MEDS: CALCIUM ACETATE 667 MG TAB PO SCH ×2 (07:14→19:15)
--- NOTE | 2021-01-29 09:01 | ECHOF ---
Referral Reason:cardiac arrest, LV function MEASUREMENTS -------- HEIGHT: 167.6 cm WEIGHT: 108.9 kg BP: RVIDd: 3.9 cm (< 3.3) IVSd: 1.1 cm (0.6 - 1.1) LVIDd: 3.7 cm (3.9 - 5.3) LVPWd: 1.3 cm (0.6 - 1.1) IVSs: 1.7 cm LVIDs: 2.9 cm LVPWs: 1.7 cm LAESV Index (A-L): 23.25 ml/m Ao Diam: 2.6 cm (2.0 - 3.7) AV Cusp: 1.7 cm (1.5 - 2.6) LA Diam: 3.6 cm (2.7 - 3.8) MV EXCURSION: 10.759 mm (> 18.000) MV EF SLOPE: 62 mm/s (70 - 150) EPSS: 0.9 cm MV E Sherman: 1.18 m/s MV DecT: 322 ms MV A Sherman: 0.85 m/s MV E/A Ratio: 1.39 AV maxP.62 mmHg AV meanP.81 mmHg RAP: 5.00 mmHg RVSP: 40.42 mmHg FINDINGS -------- This was a technically good study. The left ventricular size is normal. There is mild concentric left ventricular hypertrophy. Overa ll left ventricular systolic function is low-normal with, an EF between 50 - 55 %. Normal LAP. Grad e 1 Diastolic Dysfunction. The right ventricle is mild to moderately enlarged. The left atrial size is normal. Normal LA size by volume 22+/-6 ml/m2. The right atrial size is normal. Interatrial and interventricular septum intact. Aortic valve is trileaflet and is mildly thickened. There is mild aortic valve sclerosis. Peak/me an gradient across the Aortic Valve is 15.62mmHg / 8.81mmHg. The mitral valve is normal. The mitral valve leaflets are mildly thickened. Mild mitral annular c alcification present. Mild mitral regurgitation is present. The tricuspid valve appears structurally normal. Mild tricuspid regurgitation present. There is m ild pulmonary hypertension. The right ventricular systolic pressure, as measured by Doppler, is 40. 42mmHg. Trace/mild (physiologic) pulmonic regurgitation. The aortic root size is normal. Normal inferior vena cava with normal inspiratory collapse consistent with estimated right atrial pre ssure of 5 mmHg. There is no pericardial effusion. CONCLUSIONS -------- 1. The left ventricular size is normal. 2. There is mild concentric left ventricular hypertrophy. 3. Overall left ventricular systolic function is low-normal with, an EF between 50 - 55 %. 4. Normal LAP. Grade 1 Diastolic Dysfunction. 5. The right ventricle is mild to moderately enlarged. 6. Aortic valve is trileaflet and is mildly thickened. 7. There is mild aortic valve sclerosis. 8. Peak/mean gradient across the Aortic Valve is 15.62mmHg / 8.81mmHg. 9. The mitral valve leaflets are mildly thickened. 10. Mild mitral annular calcification present. 11. Mild mitral regurgitation is present. 12. Mild tricuspid regurgitation present. 13. There is mild pulmonary hypertension. 14. The right ventricular systolic pressure, as measured by Doppler, is 40.42mmHg. 15. Trace/mild (physiologic) pulmonic regurgitation. 16. There is no pericardial effusion. PRESTO LOG OPERATOR: Maria Ines Royal RDCS
--- NOTE | 2021-01-29 09:56 | P.CNNES ---
History of Present Illness Consult date: 01/29/21 Requesting physician: Eduar Oliver Reason for Consult: anoxia from post cardiac arrest History of Present Illness: This is a 65-year-old woman with history of hypertension, diabetes mellitus, DVT (on eliquis), end-stage renal disease on dialysis, hypertension, coronary artery disease, previous episodes of ventricular tachycardia and peripheral neuropathy who presented to the emergency department on 01/28/2021 after having a cardiac arrest. History is obtained from medical record. Per medical records the patient was in her normal state on 01/28/2021 then felt nauseated then had a cardiac arrest at approximately 1310 on that same day. CPR was initially by EMS. She was found to be in an V. fib and the she was defibrillated and that CPR was continued. She was given epinephrine. And it seems that after 25 minut es subsequently had return of spontaneous circulation (1335). She was intubated by EMS. She arrived to the emergency department on 1415. Per the patient ICU nurse the patient continues to be intubated on ventilator and is on Propofol IV drip 30mcg/kg/min and has been held for 1 hour now and no movement or responsiveness and pupils felt no reactivity to light. Of note the patient presented to the emergency department on 01/26/2021 for generalized weakness and the treated for encephalopathy related to hypoglycemia was discharged on 01/27/2021 per the primary team. It seems that the patient on presentation had sugar level on 01/26/2021 of 58. Also looking back seems that in November 2020 she had episodes the an as low as in the 40s. Workup in the hospital consisted of: Initial vital signs on presentation is blood pressure of 148/77, heart rate of 90, respiratory of 20, temperature of 100.1 Fahrenheit, pulse ox is 100% on mechanical ventilation. Since the patient has been in the hospital she had episodes of blood pressure in the 90s over 50s over 60s. The patient has not had any spikes of fever otherwise. EKG is reported as normal sinus rhythm. Nonspecific ST and T-wave abnormality. Abnormal EKG. Initial white blood cells 14.8 and the repeat his 8.9. Initial sodium is 134 and repeat is 130 which is mildly low. Initial POC glucose is 156 and her sugars are ranging between the 100s and 80s to 200 for the most part. AST is 43 and the ALTs 28. Carbajal virus PCR is detected Chest x-ray was reported as interval development of retrocardiac opacity is guarded above. Pulmonary vascular Cashin interstitial edema significantly decreased compared to prior study. Review of Systems Review of system is limited and pertitent positive and negative As per HPI. Past Medical History Past Medical History: Diabetes Mellitus, Dialysis, Deep Vein Thrombosis (DVT), Hypertension, Renal Disease Additional Past Medical History / Comment(s): ESRD with hemodialysis,MWF, IDDM type II, past DKA, neuropathy bilateral feet/legs and alittle in hands, "fast heart rate"-had cardiac ablation, lymphedema bilateral lower legs/feet, gout R knee, mineral bone disease, IBS, R sided Mustafa's palsey.skin CA on back removed. covid 19 in October History of Any Multi-Drug Resistant Organisms: None Reported Past Surgical History: Appendectomy, Cardiac Ablation, Section, Cholecystectomy, Tubal Ligation Additional Past Surgical History / Comment(s): bilateral cataract removal with lens implants, C-sections, bilateral benign breast biopsies, AV graft left arm done 06-23-16 for dialysis, colonoscopy. Past Anesthesia/Blood Transfusion Reactions: Motion Sickness, Postoperative Nausea & Vomiting (PONV) Past Psychological History: No Psychological Hx Reported Additional Psychological History / Comment(s): . Smoking Status: Unknown if ever smoked Past Alcohol Use History: None Reported Past Drug Use History: None Reported - Past Family History Father Family Medical History: Cancer, Diabetes Mellitus Additional Family Medical History / Comment(s): Father had prostate cancer. Mother Family Medical History: Cancer Additional Family Medical History / Comment(s): Mother had breast cancer. Medications and Allergies Home Medications Medication Instructions Recorded Confirmed Type Gabapentin [Neurontin] 300 mg PO DAILY PRN 06/27/16 01/28/21 History Aspirin [Adult Low Dose Aspirin EC] 81 mg PO DAILY 09/16/16 01/28/21 History amLODIPine [Norvasc] 10 mg PO HS 11/29/16 01/28/21 History Lidocaine-Prilocaine Cream [Emla 1 applic TOPICAL TUTHSA PRN 05/19/20 01/28/21 History Cream 2.5%/2.5%] Ondansetron HCl [Zofran] 4 mg PO Q8H PRN 05/19/20 01/28/21 History Calcium Acetate [PhosLo] 1,334 mg PO AC-BID 07/12/20 01/28/21 History Calcium Acetate [PhosLo] 667 mg PO DAILY PRN 07/12/20 01/28/21 History INSULIN ASPART (NovoLOG) [NovoLOG See Protocol SQ AC-TID 07/12/20 01/28/21 History (formulary)] hydrALAZINE HCL [Apresoline] 50 mg PO TID #90 tab 07/16/20 01/28/21 Rx Furosemide [Lasix] 80 mg PO BID PRN 11/01/20 01/28/21 History Zinc 50 mg PO BID 12/08/20 01/28/21 History Albuterol Sulfate [Ventolin HFA] 2 puff INHALATION RT-QID PRN 01/26/21 01/28/21 History Apixaban [Eliquis] 2.5 mg PO BID 01/26/21 01/28/21 History Loperamide [Imodium] 4 mg PO Q6H PRN 01/26/21 01/28/21 History HYDROcodone/APAP 7.5-325MG [[place] 1 tablet PO BID #0 01/27/21 01/28/21 Rx 7.5-325] Insulin Glargine,Hum.rec.anlog 15 unit SQ HS #0 01/27/21 01/28/21 Rx [Basaglar Kwikpen U-100] Allergies Allergy/AdvReac Type Severity Reaction Status Date / Time sulfamethoxazole AdvReac Nausea & Verified 01/28/21 14:52 [From Bactrim] Vomiting,dyspnea trimethoprim [From Bactrim] AdvReac Nausea & Verified 01/28/21 14:52 Vomiting,dyspnea Physical Examination - Vital Signs Vital Signs: Vital Signs Temp Pulse Pulse Resp BP BP Pulse Ox 01/29/21 08:00 97.7 F 53 L 19 121/62 97 01/29/21 07:00 48 L 22 118/61 96 01/29/21 06:00 50 L 20 118/57 96 01/29/21 05:00 49 L 22 122/60 98 01/29/21 04:00 98.4 F 49 L 18 112/54 99 01/29/21 03:00 53 L 18 144/65 97 01/29/21 02:00 50 L 18 114/58 100 04/03/21 01:00 97.4 F L 48 L 20 103/53 100 01/29/21 00:22 96.1 F L 50 L 20 124/61 100 01/28/21 23:45 50 L 22 120/71 96 01/28/21 23:30 50 L 22 114/65 97 01/28/21 23:15 50 L 20 113/78 96 01/28/21 23:00 50 L 22 104/63 01/28/21 22:45 98.9 F 50 L 20 103/61 96 01/28/21 22:30 49 L 21 102/60 01/28/21 22:15 49 L 20 101/60 01/28/21 22:00 49 L 22 102/69 01/28/21 21:45 49 L 22 94/57 01/28/21 21:30 50 L 22 96/55 01/28/21 21:15 51 L 22 94/52 01/28/21 21:00 50 L 21 95/54 01/28/21 20:45 50 L 22 98/62 01/28/21 20:30 51 L 22 96/62 94 L 01/28/21 20:15 50 L 22 94/61 93 L 01/28/21 20:00 51 L 22 98/60 96 01/28/21 19:45 51 L 20 94/61 94 L 01/28/21 19:30 52 L 20 92/63 95 01/28/21 19:15 51 L 18 93/59 91 L 01/28/21 18:48 52 L 22 93/58 91 L 01/28/21 18:28 52 L 52 L 23 95/59 95/59 92 L 01/28/21 17:53 53 L 18 99/59 01/28/21 17:00 54 L 54 L 18 111/62 111/62 91 L 01/28/21 16:30 18 97/56 96 01/28/21 16:29 59 L 20 97/56 94 L 01/28/21 16:21 58 L 20 105/60 01/28/21 16:01 98.5 F 60 61 20 127/68 127/68 100 01/28/21 15:44 64 27 H 131/70 01/28/21 15:19 36 H 01/28/21 15:16 70 30 H 135/75 100 04/02/21 15:01 75 137/71 100 01/28/21 14:51 79 22 151/79 100 01/28/21 14:14 100.1 F H 90 20 148/77 100 01/28/21 14:09 90 20 100 Intake and Output 01/28/21 01/29/21 01/29/21 22:59 06:59 14:59 Intake Total 67.362 100 16.995 Output Total 5 5 Balance 67.362 95 11.995 Intake: Intake, IV Titration 67.362 100 16.995 Amount propofoL 1,000 mg In 67.362 100 16.995 Empty Bag 1 bag @ Titrate IV .Q0M [facility] Rx#: [id number] Output: Urine 5 5 Other: Weight 103 kg 103 kg GENERAL: The patient is lying in bed and is not in acute distress. The propofol drip has been held for 1 hour and 15 minutes. CHEST: The heart rate is regular rate rhythm. No murmurs to auscultation. LUNG: Intubated on ventilator. Clear to auscultation bilaterally no wheezing noted throughout. Not labored breathing. ABDOMEN/GI: Bowel sounds present in all 4 quadrants. No tenderness to palpation throughout. NEUROLOGICAL: Limited because of her condition. Propofol held for 1 hour and 15 minutes (was on Propofol drip 30mcg/kg/min). Higher mental function: GCS 3 (E1,VT1,M1). Patient is non responisve and does not open eyes or follow commands. Cranial nerves: Upon manually opens the eyes, primary gaze is midline. Pupils are 2mm and sluggishly reactive to light. +ve corneal reflex over the left eye. No facial weakness. Has weak cough reflex. Is breathing over the vent. Otherwise could not assess rest of cranial nerves. Motor: No movement noted sponateously or to painful stimuli. Normal tone. Has lymphedema of bilateral lower extremities. Cerebellum: Could not assess. Sensation: Could not assess. Reflexes (right/left): 2+ uppers. 0 in lowers and limited because of lymphedema. Plantars are mute bilaterally. Results The troponin is the 0.079. Coagulation is PT is 13.2 and INR is 1.3. Urine analysis seems negative for urinary tract infection next - Laboratory Findings CBC and BMP: 01/29/21 04:16 01/29/21 04:16 Abnormal Lab Findings: Abnormal Labs 01/28/21 01/28/21 01/28/21 14:37 14:38 14:38 WBC 14.8 H RBC 3.07 L Hgb 9.3 L Hct 30.1 L MCHC 30.7 L RDW 17.0 H Neutrophils # 12.7 H PT INR ABG pH ABG pCO2 ABG pO2 ABG HCO3 ABG Total CO2 ABG O2 Saturation Sodium 134 L Chloride 95 L BUN Creatinine 3.09 H Glucose 170 H POC Glucose (mg/dL) AST 43 H Alkaline Phosphatase 239 H Troponin I Urine pH 8.5 H Urine Protein 3+ H Urine Glucose (UA) 2+ H Urine Blood Trace H Urine RBC 16 H Urine WBC 6 H Urine Bacteria Rare H Urine Mucus Rare H Coronavirus (PCR) 01/28/21 01/28/21 01/28/21 14:38 14:39 14:45 WBC RBC Hgb Hct MCHC RDW Neutrophils # PT 13.2 H INR 1.3 H ABG pH ABG pCO2 ABG pO2 ABG HCO3 ABG Total CO2 ABG O2 Saturation Sodium Chloride BUN Creatinine Glucose POC Glucose (mg/dL) 156 H AST Alkaline Phosphatase Troponin I 0.079 H* Urine pH Urine Protein Urine Glucose (UA) Urine Blood Urine RBC Urine WBC Urine Bacteria Urine Mucus Coronavirus (PCR) 01/28/21 01/28/21 01/28/21 15:59 17:37 20:07 WBC RBC Hgb Hct MCHC RDW Neutrophils # PT INR ABG pH ABG pCO2 50 H ABG pO2 250 H ABG HCO3 32 H ABG Total CO2 34 H ABG O2 Saturation 100.0 H Sodium Chloride BUN Creatinine Glucose POC Glucose (mg/dL) 191 H AST Alkaline Phosphatase Troponin I Urine pH Urine Protein Urine Glucose (UA) Urine Blood Urine RBC Urine WBC Urine Bacteria Urine Mucus Coronavirus (PCR) Detected A 01/28/21 01/28/21 01/29/21 21:42 23:47 04:16 WBC RBC 2.82 L Hgb 8.8 L Hct 27.4 L MCHC RDW 16.9 H Neutrophils # PT INR ABG pH ABG pCO2 ABG pO2 ABG HCO3 ABG Total CO2 ABG O2 Saturation Sodium Chloride BUN Creatinine Glucose POC Glucose (mg/dL) 187 H 200 H AST Alkaline Phosphatase Troponin I Urine pH Urine Protein Urine Glucose (UA) Urine Blood Urine RBC Urine WBC Urine Bacteria Urine Mucus Coronavirus (PCR) 01/29/21 01/29/21 01/29/21 04:16 05:36 05:36 WBC RBC Hgb Hct MCHC RDW Neutrophils # PT INR ABG pH 7.52 H ABG pCO2 ABG pO2 130 H ABG HCO3 30 H ABG Total CO2 31 H ABG O2 Saturation 99.0 H Sodium 130 L Chloride 93 L BUN 18 H Creatinine 3.51 H Glucose 191 H POC Glucose (mg/dL) 186 H AST Alkaline Phosphatase Troponin I Urine pH Urine Protein Urine Glucose (UA) Urine Blood Urine RBC Urine WBC Urine Bacteria Urine Mucus Coronavirus (PCR) Assessment and Plan Assessment: This is a 65-year-old woman with multiple medical problems that presented emergency department on 01/28/2021 after a cardiac arrest in which she suffered around 13:10. Seems that the she had a cardiac arrest lasting for 25 minutes * Encephalopathy due to multiple factorial: Anoxic brain injury from prolonged cardiac arrest and component of metabolic encephalopathy (uncontrolled sugar, hypotensive), underlying pneuomonia from COVID 19 and medication effect (propofol IV drip). * Cardiac arrest on 01/28/2021 lasting 25 minutes * Acute pneumonia due to [place] 19 * Uncontrolled the diabetes mellitus and has brittle sugar level (episodes of hypoglycemia 40's to 50's in Nov and December/2020) * Mild elevated troponin * Mild hyponatremia * Hypertension * End-stage renal is on dialysis * Carotid artery disease * DVT on Eliquis * History of poor peripheral neuropathy Plan: I ordered a stat CT of the head I ordered a stat EEG. I'll not start the patient on antiepileptic unless there is epileptiform discharge or seizure on the EEG. I ordered ammonia level. 2-D echo is ordered and is pending Ordered Q1 hour neuro checks Brigette the patient is on Eliquis 2.5 mg tablet twice a day as well as aspirin 81 mg. Regarding the mild elevated troponin cardiology is on board. Please avoid any hypotensive episode or hypoglycemic episode and will defer management to primary team and ICU team. We'll defer the rest of medical management to the primary/ICU team. The patient prognosis appears poor (since prolonged cardiac arrest, only has brainstem reflex and multiple comorbitidies. But will determine better after further work-up). The plan was discussed with the patient's nurse. Thank you for the consultation. UPDATE: Preliminary EEG report: Is abnornmal routine EEG. The background slowing is severe encephalopathy. There is suspicous sharp and slow wave concerning for epileptiform discharge without evolution to seizure. There is no seizure on EEG. As result patient was loaded on Keppra 1gm once then started on 500mg 1 bid. Lenny Fernandez M.D. Neuro-hospitalist Time with Patient: Greater than 30
[2021-01-29] MEDS: APIXABAN 2.5 MG TABLET PO SCH ×2 (12:41→21:56)
[2021-01-29] MEDS: ZINC SULFATE 220 MG CAP PO SCH ×2 (12:41→22:01)
[2021-01-29] MEDS: PANTOPRAZOLE 40 MG/10 ML VIAL IVP SCH ×2 (12:41→21:57)
[2021-01-29] MEDS: CHLORHEXIDINE GLUCONATE 15 ML CUP MUCOUS MEM SCH ×2 (12:41→21:56)
[2021-01-29] MEDS: PIPERACILLIN-TAZOBACTAM 3.375 GM in SODIUM CHLORIDE 0.9% 100 ML IVPB SCH ×2 (12:42→22:00)
[2021-01-29] MEDS: ASPIRIN 81 MG PO SCH (12:46)
--- NOTE | 2021-01-29 13:25 | PN ---
PROGRESS NOTE Clarissa is a 65-year-old lady with history of end-stage renal disease on hemodialysis, who presented to the hospital having had a cardiac arrest yesterday. I saw her in the emergency room and since that time, she is intubated on vent and is in the ICU. Her coronavirus test has come back positive again. She is currently being investigated for possible hypoxic encephalopathy. LABORATORY DATA: Lab showed that the hemoglobin is 8.8. BUN is 18, creatinine is 3.5. She had an echo on this admission that revealed normal LV systolic function with mild aortic stenosis. PHYSICAL EXAMINATION: On exam heart rate is 65 beats per minute, blood pressure is 140/72, respiratory is 24, O2 saturation is 95% on FiO2 of 50%. Rest of the exam is unchanged. ASSESSMENT: 1. Status post cardiorespiratory arrest. 2. End-stage renal disease on hemodialysis. PLAN: Continue with supportive care. Prognosis is guarded. MMODL / IJN: [id number] /
--- NOTE | 2021-01-29 13:33 | P.CNPUL ---
History of Present Illness Consult date: 01/29/21 Requesting physician: Mack Martinez Reason for consult: other (Cardiac arrest) Chief complaint: Cardiac arrest History of present illness: This is a 65-year-old female with history of multiple medical problems, known to have end-stage renal disease, on hemodialysis, type 2 diabetes, coronary artery disease, cardiogenic in the form of ventricular tachycardia, patient had had hemodialysis yesterday, and she went home felt nauseated, while at home the patient had a sudden cardiac arrest at 1310. Family initiated CPR according to EMS, fire department arrived to the scene and found the patient to be unresponsive, in ventricular fibrillation. She was defibrillated, and CPR was continued. Patient received epinephrine, and after the second the defibrillation, there was return of spontaneous circulation. Down time was in the range of 20 minutes. Patient was brought into the emergency room, kept on mechanical ventilation, she was hemodynamically stable not requiring any pressors. Transferred to the ICU, and I was asked to see her on consultation. The major concern at this point is the fact that the patient had a prolonged downtime, and she most likely sustained anoxic brain injury. Hence a neurological consultation was initiated on this patient. I discontinued all her sedation and we will arrange for neurological consultation. Ventilator oreilly the patient is on assist control rate of 14, volume 350 FiO2 went down from 60% to 45%, ABG showed a pO2 of 130 pCO2 of 36 pH of 7.52. All this information was obtained from the chart, no family members available at bedside Review of Systems ROS unobtainable: due to endotracheal tube Past Medical History Past Medical History: Diabetes Mellitus, Dialysis, Deep Vein Thrombosis (DVT), Hypertension, Renal Disease Additional Past Medical History / Comment(s): ESRD with hemodialysis,MWF, IDDM type II, past DKA, neuropathy bilateral feet/legs and alittle in hands, "fast heart rate"-had cardiac ablation, lymphedema bilateral lower legs/feet, gout R knee, mineral bone disease, IBS, R sided Mustafa's palsey.skin CA on back removed. covid 19 in October History of Any Multi-Drug Resistant Organisms: None Reported Past Surgical History: Appendectomy, Cardiac Ablation, Section, Cholecystectomy, Tubal Ligation Additional Past Surgical History / Comment(s): bilateral cataract removal with lens implants, C-sections, bilateral benign breast biopsies, AV graft left arm done 8-16 for dialysis, colonoscopy. Past Anesthesia/Blood Transfusion Reactions: Motion Sickness, Postoperative Nausea & Vomiting (PONV) Past Psychological History: No Psychological Hx Reported Additional Psychological History / Comment(s): . Smoking Status: Unknown if ever smoked Past Alcohol Use History: None Reported Past Drug Use History: None Reported - Past Family History Father Family Medical History: Cancer, Diabetes Mellitus Additional Family Medical History / Comment(s): Father had prostate cancer. Mother Family Medical History: Cancer Additional Family Medical History / Comment(s): Mother had breast cancer. Medications and Allergies Home Medications Medication Instructions Recorded Confirmed Type Gabapentin [Neurontin] 300 mg PO DAILY PRN 06/27/16 01/28/21 History Aspirin [Adult Low Dose Aspirin EC] 81 mg PO DAILY 09/16/16 01/28/21 History amLODIPine [Norvasc] 10 mg PO HS 11/29/16 01/28/21 History Lidocaine-Prilocaine Cream [Emla 1 applic TOPICAL TUTHSA PRN 05/19/20 01/28/21 History Cream 2.5%/2.5%] Ondansetron HCl [Zofran] 4 mg PO Q8H PRN 05/19/20 01/28/21 History Calcium Acetate [PhosLo] 1,334 mg PO AC-BID 07/12/20 01/28/21 History Calcium Acetate [PhosLo] 667 mg PO DAILY PRN 07/12/20 01/28/21 History INSULIN ASPART (NovoLOG) [NovoLOG See Protocol SQ AC-TID 07/12/20 01/28/21 H istory (formulary)] hydrALAZINE HCL [Apresoline] 50 mg PO TID #90 tab 07/16/20 01/28/21 Rx Furosemide [Lasix] 80 mg PO BID PRN 11/01/20 01/28/21 History Zinc 50 mg PO BID 12/08/20 01/28/21 History Albuterol Sulfate [Ventolin HFA] 2 puff INHALATION RT-QID PRN 01/26/21 01/28/21 History Apixaban [Eliquis] 2.5 mg PO BID 01/26/21 01/28/21 History Loperamide [Imodium] 4 mg PO Q6H PRN 01/26/21 01/28/21 History HYDROcodone/APAP 7.5-325MG [[place] 1 tablet PO BID #0 01/27/21 01/28/21 Rx 7.5-325] Insulin Glargine,Hum.rec.anlog 15 unit SQ HS #0 01/27/21 01/28/21 Rx [Basaglar Kwalexapen U-100] Allergies Allergy/AdvReac Type Severity Reaction Status Date / Time sulfamethoxazole AdvReac Nausea & Verified 01/28/21 14:52 [From Bactrim] Vomiting,dyspnea trimethoprim [From Bactrim] AdvReac Nausea & Verified 01/28/21 14:52 Vomiting,dyspnea Physical Exam Vitals: Vital Signs Temp Pulse Pulse Resp BP BP Pulse Ox 01/29/21 09:00 65 24 140/73 95 01/29/21 08:00 97.7 F 53 L 19 121/62 97 01/29/21 07:00 48 L 22 118/61 96 01/29/21 06:00 50 L 20 118/57 96 01/29/21 05:00 49 L 22 122/60 98 01/29/21 04:00 98.4 F 49 L 18 112/54 99 01/29/21 03:00 53 L 18 144/65 97 01/29/21 02:00 50 L 18 114/58 100 01/29/21 01:00 97.4 F L 48 L 20 103/53 100 01/29/21 00:22 96.1 F L 50 L 20 124/61 100 01/28/21 23:45 50 L 22 120/71 96 01/28/21 23:30 50 L 22 114/65 97 01/28/21 23:15 50 L 20 113/78 96 01/28/21 23:00 50 L 22 104/63 01/28/21 22:45 98.9 F 50 L 20 103/61 96 01/28/21 22:30 49 L 21 102/60 01/28/21 22:15 49 L 20 101/60 01/28/21 22:00 49 L 22 102/69 01/28/21 21:45 49 L 22 94/57 01/28/21 21:30 50 L 22 96/55 01/28/21 21:15 51 L 22 94/52 01/28/21 21:00 50 L 21 95/54 01/28/21 20:45 50 L 22 98/62 01/28/21 20:30 51 L 22 96/62 94 L 01/28/21 20:15 50 L 22 94/61 93 L 01/28/21 20:00 51 L 22 98/60 96 01/28/21 19:45 51 L 20 94/61 94 L 01/28/21 19:30 52 L 20 92/63 95 01/28/21 19:15 51 L 18 93/59 91 L 01/28/21 18:48 52 L 22 93/58 91 L 01/28/21 18:28 52 L 52 L 23 95/59 95/59 92 L 01/28/21 17:53 53 L 18 99/59 01/28/21 17:00 54 L 54 L 18 111/62 111/62 91 L 01/28/21 16:30 18 97/56 96 01/28/21 16:29 59 L 20 97/56 94 L 01/28/21 16:21 58 L 20 105/60 01/28/21 16:01 98.5 F 60 61 20 127/68 127/68 100 01/28/21 15:44 64 27 H 131/70 01/28/21 15:19 36 H 01/28/21 15:16 70 30 H 135/75 100 01/28/21 15:01 75 137/71 100 01/28/21 14:51 79 22 151/79 100 01/28/21 14:14 100.1 F H 90 20 148/77 100 01/28/21 14:09 90 20 100 Intake and Output 01/28/21 01/29/21 01/29/21 22:59 06:59 14:59 Intake Total 67.362 100 36.995 Output Total 5 5 Balance 67.362 95 31.995 Intake: IV 20 0.9 @ 10ml/hr 20 Intake, IV Titration 67.362 100 16.995 Amount propofoL 1,000 mg In 67.362 100 16.995 Empty Bag 1 bag @ Titrate IV .Q0M [facility] Rx#: [id number] Output: Urine 5 5 Other: Weight 103 kg 103 kg 103 kg Physical Exam: Revealed a 65-year-old female intubated, mechanically ventilated, sedated, on propofol which I have discontinued after my evaluation. Head: Atraumatic, normocephalic, endotracheal tube and orogastric tubes are noted. And seems to be intact. HEENT:[Neck is supple.] [No neck masses.] [No thyromegaly.] [No JVD.] Dry mucous membranes noted. Throat is clear. Chest: [Symmetrical chest expansion, minimal fine crackles at the bases, no rhonchi and no wheezes..] Cardiac Exam: [Normal S1 and S2, no S3 gallop, no murmur.] Abdomen: [Soft, nontender, no megaly, no rebound, no guarding, normal bowel sounds.] Extremities: [No clubbing, no edema, no cyanosis.] Neurological Exam: Patient is sedated, unresponsive to any painful stimuli. Glascow coma score is 3. Unresponsive and does not open eyes or follow commands. Pupils are 2 mm, sluggishly reactive to light. Positive corneal reflex. Extremities there is evidence of lymphedema in both lower extremities, and areas of cellulitis on the medial aspects of her tibias bilaterally. Skin: As noted above. Musculoskeletal could not assess. Results - Laboratory Findings CBC and BMP: 01/29/21 04:16 01/29/21 04:16 ABG ABG pH 7.52 (7.35-7.45) H 01/29/21 05:36 ABG pCO2 36 mmHg (35-45) 01/29/21 05:36 ABG pO2 130 mmHg (83-108) H 01/29/21 05:36 ABG O2 Saturation 99.0 % (94-97) H 01/29/21 05:36 PT/INR, D-dimer PT 13.2 sec (9.0-12.0) H 01/28/21 14:45 INR 1.3 (<1.2) H 01/28/21 14:45 Abnormal lab findings: Abnormal Labs 01/28/21 01/28/21 01/28/21 14:37 14:38 14:38 WBC 14.8 H RBC 3.07 L Hgb 9.3 L Hct 30.1 L MCHC 30.7 L RDW 17.0 H Neutrophils # 12.7 H PT INR ABG pH ABG pCO2 ABG pO2 ABG HCO3 ABG Total CO2 ABG O2 Saturation Sodium 134 L Chloride 95 L BUN Creatinine 3.09 H Glucose 170 H POC Glucose (mg/dL) AST 43 H Alkaline Phosphatase 239 H Troponin I Urine pH 8.5 H Urine Protein 3+ H Urine Glucose (UA) 2+ H Urine Blood Trace H Urine RBC 16 H Urine WBC 6 H Urine Bacteria Rare H Urine Mucus Rare H Coronavirus (PCR) 01/28/21 01/28/21 01/28/21 14:38 14:39 14:45 WBC RBC Hgb Hct MCHC RDW Neutrophils # PT 13.2 H INR 1.3 H ABG pH ABG pCO2 ABG pO2 ABG HCO3 ABG Total CO2 ABG O2 Saturation Sodium Chloride BUN Creatinine Glucose POC Glucose (mg/dL) 156 H AST Alkaline Phosphatase Troponin I 0.079 H* Urine pH Urine Protein Urine Glucose (UA) Urine Blood Urine RBC Urine WBC Urine Bacteria Urine Mucus Coronavirus (PCR) 01/28/21 01/28/21 01/28/21 15:59 17:37 20:07 WBC RBC Hgb Hct MCHC RDW Neutrophils # PT INR ABG pH ABG pCO2 50 H ABG pO2 250 H ABG HCO3 32 H ABG Total CO2 34 H ABG O2 Saturation 100.0 H Sodium Chloride BUN Creatinine Glucose POC Glucose (mg/dL) 191 H AST Alkaline Phosphatase Troponin I Urine pH Urine Protein Urine Glucose (UA) Urine Blood Urine RBC Urine WBC Urine Bacteria Urine Mucus Coronavirus (PCR) Detected A 01/28/21 01/28/21 01/29/21 21:42 23:47 04:16 WBC RBC 2.82 L Hgb 8.8 L Hct 27.4 L MCHC RDW 16.9 H Neutrophils # PT INR ABG pH ABG pCO2 ABG pO2 ABG HCO3 ABG Total CO2 ABG O2 Saturation Sodium Chloride BUN Creatinine Glucose POC Glucose (mg/dL) 187 H 200 H AST Alkaline Phosphatase Troponin I Urine pH Urine Protein Urine Glucose (UA) Urine Blood Urine RBC Urine WBC Urine Bacteria Urine Mucus Coronavirus (PCR) 01/29/21 01/29/21 01/29/21 04:16 05:36 05:36 WBC RBC Hgb Hct MCHC RDW Neutrophils # PT INR ABG pH 7.52 H ABG pCO2 ABG pO2 130 H ABG HCO3 30 H ABG Total CO2 31 H ABG O2 Saturation 99.0 H Sodium 130 L Chloride 93 L BUN 18 H Creatinine 3.51 H Glucose 191 H POC Glucose (mg/dL) 186 H AST Alkaline Phosphatase Troponin I Urine pH Urine Protein Urine Glucose (UA) Urine Blood Urine RBC Urine WBC Urine Bacteria Urine Mucus Coronavirus (PCR) - Diagnostic Findings Chest x-ray: image reviewed (Chest x-ray showed evidence of pulmonary vascular congestion/interstitial edema, and retrocardiac opacity. Endotracheal tube seems to be in the proper position.) Assessment and Plan Assessment: Impression: Cardiac arrest most likely secondary to cardiac arrhythmia initial rhythm was ventricular fibrillation upon EMS arrival. Acute hypoxic respiratory failure secondary to above. Bilateral interstitial edema most likely secondary to end-stage renal disease and suspect acute systolic congestive heart failure, likely ischemic in nature. Cardiac workup is pending. Strongly suspect anoxic brain injury and metabolic encephalopathy secondary to cardiac arrest. Type 2 diabetes. Benign essential hypertension. end stage renal disease on hemodialysis. History of carotid artery disease. History of DVT been maintained on all across. History of diabetic peripheral neuropathy. History of cardiac arrhythmia requiring cardiac ablation. Chronic lymphedema and cellulitis of both lower extremities. History of irritable bowel syndrome. History of covid 19 infection in October of 2020 Recommendation: Continue ventilatory support. Continue nutritional support. Continue hemodynamic support if needed. Continue GI and DVT prophylaxis. Resume hemodialysis as the patient has chest x-ray suggestive of fluid overload secondary to her end-stage renal disease. Cardiology to see on consultation for possible acute systolic congestive heart failure and LV dysfunction, echocardiogram is pending. Insulin to control her diabetes. Empiric antibiotics for cellulitis and Silvadene to be applied to areas of cellulitis and ulcers in the lower extremities. Neurologic consultation to assess her anoxic brain injury. Nephrology to resume hemodialysis. Prognosis is extremely poor and guarded. We will approach the family in the next 24 hours after full neurological evaluation, and address CODE STATUS and possibly comfort care measures if the urologist feels comfortable that this lady had or sustained severe anoxic brain injury. Critical care time is 45 minutes. Time with Patient: Greater than 30
--- NOTE | 2021-01-29 13:35 | P.NPCON ---
History of Present Illness - Reason for Consult Consult date: 01/29/21 end stage renal disease - Chief Complaint Cardiopulmonary arrest - History of Present Illness ESRD, MWF dialysis Covid 19 positive coming to the hospital with VJennifer fib cardiac arrest downtime about 20-25 minutes. On ventilator. No missed hemodialysis. No hyperkalemia. ABG consistent with metabolic alkalosis. Not on pressors. Review of Systems ROS unobtainable: due to mental status Past Medical History Past Medical History: Diabetes Mellitus, Dialysis, Deep Vein Thrombosis (DVT), Hypertension, Renal Disease Additional Past Medical History / Comment(s): ESRD with hemodialysis,MWF, IDDM type II, past DKA, neuropathy bilateral feet/legs and alittle in hands, "fast heart rate"-had cardiac ablation, lymphedema bilateral lower legs/feet, gout R knee, mineral bone disease, IBS, R sided Mustafa's palsey.skin CA on back removed. covid 19 in October History of Any Multi-Drug Resistant Organisms: None Reported Past Surgical History: Appendectomy, Cardiac Ablation, Section, Cholecystectomy, Tubal Ligation Additional Past Surgical History / Comment(s): bilateral cataract removal with lens implants, C-sections, bilateral benign breast biopsies, AV graft left arm done 06-23-16 for dialysis, colonoscopy. Past Anesthesia/Blood Transfusion Reactions: Motion Sickness, Postoperative Nausea & Vomiting (PONV) Past Psychological History: No Psychological Hx Reported Additional Psychological History / Comment(s): . Smoking Status: Unknown if ever smoked Past Alcohol Use History: None Reported Past Drug Use History: None Reported - Past Family History Father Family Medical History: Cancer, Diabetes Mellitus Additional Family Medical History / Comment(s): Father had prostate cancer. Mother Family Medical History: Cancer Additional Family Medical History / Comment(s): Mother had breast cancer. Medications and Allergies Home Medications Medication Instructions Recorded Confirmed Type Gabapentin [Neurontin] 300 mg PO DAILY PRN 06/27/16 01/28/21 History Aspirin [Adult Low Dose Aspirin EC] 81 mg PO DAILY 09/16/16 01/28/21 History amLODIPine [Norvasc] 10 mg PO HS 11/29/16 01/28/21 History Lidocaine-Prilocaine Cream [Emla 1 applic TOPICAL TUTHSA PRN 05/19/20 01/28/21 History Cream 2.5%/2.5%] Ondansetron HCl [Zofran] 4 mg PO Q8H PRN 05/19/20 01/28/21 History Calcium Acetate [PhosLo] 1,334 mg PO AC-BID 07/12/20 01/28/21 History Calcium Acetate [PhosLo] 667 mg PO DAILY PRN 07/12/20 01/28/21 History INSULIN ASPART (NovoLOG) [NovoLOG See Protocol SQ AC-TID 07/12/20 01/28/21 History (formulary)] hydrALAZINE HCL [Apresoline] 50 mg PO TID #90 tab 07/16/20 01/28/21 Rx Furosemide [Lasix] 80 mg PO BID PRN 11/01/20 01/28/21 History Zinc 50 mg PO BID 12/08/20 01/28/21 History Albuterol Sulfate [Ventolin HFA] 2 puff INHALATION RT-QID PRN 01/26/21 01/28/21 History Apixaban [Eliquis] 2.5 mg PO BID 01/26/21 01/28/21 History Loperamide [Imodium] 4 mg PO Q6H PRN 01/26/21 01/28/21 History HYDROcodone/APAP 7.5-325MG [[place] 1 tablet PO BID #0 01/27/21 01/28/21 Rx 7.5-325] Insulin Glargine,Hum.rec.anlog 15 unit SQ HS #0 01/27/21 01/28/21 Rx [Basaglar Kwikpen U-100] Allergies Allergy/AdvReac Type Severity Reaction Status Date / Time sulfamethoxazole AdvReac Nausea & Verified 01/28/21 14:52 [From Bactrim] Vomiting,dyspnea trimethoprim [From Bactrim] AdvReac Nausea & Verified 01/28/21 14:52 Vomiting,dyspnea Physical Exam Vitals: Vital Signs Temp Pulse Pulse Resp BP BP Pulse Ox 01/29/21 09:00 65 24 140/73 95 01/29/21 08:00 97.7 F 53 L 19 121/62 97 01/29/21 07:00 48 L 22 118/61 96 01/29/21 06:00 50 L 20 118/57 96 01/29/21 05:00 49 L 22 122/60 98 01/29/21 04:00 98.4 F 49 L 18 112/54 99 01/29/21 03:00 53 L 18 144/65 97 01/29/21 02:00 50 L 18 114/58 100 01/29/21 01:00 97.4 F L 48 L 20 103/53 100 01/29/21 00:22 96.1 F L 50 L 20 124/61 100 01/28/21 23:45 50 L 22 120/71 96 01/28/21 23:30 50 L 22 114/65 97 01/28/21 23:15 50 L 20 113/78 96 01/28/21 23:00 50 L 22 104/63 01/28/21 22:45 98.9 F 50 L 20 103/61 96 01/28/21 22:30 49 L 21 102/60 01/28/21 22:15 49 L 20 101/60 01/28/21 22:00 49 L 22 102/69 01/28/21 21:45 49 L 22 94/57 01/28/21 21:30 50 L 22 96/55 01/28/21 21:15 51 L 22 94/52 01/28/21 21:00 50 L 21 95/54 01/28/21 20:45 50 L 22 98/62 01/28/21 20:30 51 L 22 96/62 94 L 01/28/21 20:15 50 L 22 94/61 93 L 01/28/21 20:00 51 L 22 98/60 96 01/28/21 19:45 51 L 20 94/61 94 L 01/28/21 19:30 52 L 20 92/63 95 01/28/21 19:15 51 L 18 93/59 91 L 01/28/21 18:48 52 L 22 93/58 91 L 01/28/21 18:28 52 L 52 L 23 95/59 95/59 92 L 01/28/21 17:53 53 L 18 99/59 01/28/21 17:00 54 L 54 L 18 111/62 111/62 91 L 01/28/21 16:30 18 97/56 96 01/28/21 16:29 59 L 20 97/56 94 L 01/28/21 16:21 58 L 20 105/60 01/28/21 16:01 98.5 F 60 61 20 127/68 127/68 100 01/28/21 15:44 64 27 H 131/70 01/28/21 15:19 36 H 01/28/21 15:16 70 30 H 135/75 100 01/28/21 15:01 75 137/71 100 01/28/21 14:51 79 22 151/79 100 01/28/21 14:14 100.1 F H 90 20 148/77 100 01/28/21 14:09 90 20 100 Intake and Output 01/28/21 01/29/21 01/29/21 22:59 06:59 14:59 Intake Total 67.362 100 36.995 Output Total 5 5 Balance 67.362 95 31.995 Intake: IV 20 0.9 @ 10ml/hr 20 Intake, IV Titration 67.362 100 16.995 Amount propofoL 1,000 mg In 67.362 100 16.995 Empty Bag 1 bag @ Titrate IV .Q0M [facility] Rx#: [id number] Output: Urine 5 5 Other: Weight 103 kg 103 kg 103 kg Exam limited secondary to Covid 19 pandemic and to limit PPE. Results - Lab Results Most recent lab results ABG pH 7.52 (7.35-7.45) H 01/29/21 05:36 ABG pCO2 36 mmHg (35-45) 01/29/21 05:36 ABG pO2 130 mmHg (83-108) H 01/29/21 05:36 ABG HCO3 30 mmol/L (21-25) H 01/29/21 05:36 ABG O2 Saturation 99.0 % (94-97) H 01/29/21 05:36 Calcium 8.4 mg/dL (8.4-10.2) 01/29/21 04:16 Magnesium 2.2 mg/dL (1.6-2.3) 01/28/21 14:38 01/29/21 04:16 01/29/21 04:16 Assessment and Plan Assessment: #1 status post cardiopulmonary arrest #2 ESRD MWF. #3 Covid 19 #4 anemia with ESRD #5 hypertension with ESRD #6 metabolic bone disease with ESRD Plan: #1 hemodialysis on Sunday as per outpatient schedule. #2 ICU care
[2021-01-29 13:42] LABS: Glucose,Whole Blood 157 mg/dL (75-99)
[2021-01-29] MEDS ORDERED: levETIRAcetam IV 1,000 MG in SALINE 1 100ML.BAG IVPB STA (13:58)
--- NOTE | 2021-01-29 14:17 | EEG ---
ELECTROENCEPHALOGRAM REPORT DATE OF SERVICE: 01/29/2021 CLINICAL HISTORY: This is a 65-year-old woman who presented to the ED after a cardiac arrest and has altered mental status. This video EEG is obtained to evaluate for seizure and epileptiform activity. RELEVANT MEDICATION: Patient is on IV propofol that was held for at least 3 hours prior to the study. EEG TYPE: A routine 21 channel EEG is performed with video using the 10/20 electrode placement system. DESCRIPTION: The patient is intubated on a ventilator and the IV propofol, as stated above, is held close to 3 hours prior to this study. The patient's background consists of poorly organized nonrhythmic [id number] voltage 2-3 hertz delta activity. There is no physiological sleep architecture seen. There is significant myogenic artifact over the bilateral hemisphere. INTERICTAL AND ICTAL: There appears to frequent sharp and slow waves over the F4 lead seen concerning for epileptiform activity, but is not absolute without any evolution to seizure. ACTIVATION PROCEDURES: Photic stimulation did not evoke a posterior driving response. Hyperventilation is not performed. CLINICAL INTERPRETATION: Abnormal routine EEG. The background slowing is suggestive of severe encephalopathy. The suspicious sharp and slow waves over the F4 region is concerning for epileptiform activity without any evolution to seizure. There was no seizure activity that was recorded during the study. There is significant myogenic artifact during the study. Clinical correlation is recommended. RECOMMENDATION: Recommend repeat routine EEG. MMODL / DUKEN: [id number] / MTDD
--- NOTE | 2021-01-29 15:16 | P.PN ---
Subjective Patient is a pleasant 65-year-old the female was discharged from my service yesterday after she was treated for encephalopathy related to hypoglycemia. Patient had a cardiorespiratory arrest was pretty functional ambulate and go shopping at the time when she had a cardiorespiratory arrest, CPR was started and patient was later found to have went to her tachycardia, patient returned to sinus rhythm and 25 minutes subsequently was intubated and brought to emergency department. Patient did have history of ventricular tachycardia in the past pa tient was started on amiodarone at that time. Patient does have medical multiple medical problems including end-stage renal disease dialysis dependent chest x-ray showing significant infiltrate in the right lung mostly appears to be volume overload patient does have low-grade fever which can be secondary to cardiorespiratory arrest but patient was empirically started on Zosyn and patient is being admitted to ICU patient is presently intubated with FiO2 of 100% PEEP of 5 patient is breathing over the ventilator patient is on assist- control/volume controlled ventilation, on propofol patient does have conjunctival and corneal reflexes, does have gag reflex. No significant electrolyte abnormalities were appreciated. 01/29/2021 Patient is on ventilator support patient the doesn't have any significant response in after discontinue additional of sedation for about 4 hours. Patient was evaluated by multiple consultants including neurology patient had an EEG to assess for the brain function because of significant anoxic brain injury, patient has significant background slowing slowing encephalopathy. Patient still has brainstem reflexes that were described above. Patient had an echo Wh ich showed normal ejection fraction greater than diastolic dysfunction. Review of systems: Unable to obtain as patient is intubated All inpatient medications were reviewed and appropriate changes in these medications as dictated in the interval history and assessment and plan. Objective - Vital Signs Vital signs: Vital Signs Temp 97.7 F 01/29/21 08:00 Pulse 65 01/29/21 09:00 Resp 24 01/29/21 09:00 BP 140/73 01/29/21 09:00 Pulse Ox 95 01/29/21 09:00 Intake & Output 01/28/21 01/29/21 01/29/21 18:59 06:59 18:59 Intake Total 68.670 100 36.995 Output Total 5 5 Balance 68.670 95 31.995 Weight 103 kg 103 kg 103 kg Intake: IV 20 0.9 @ 10ml/hr 20 Intake, IV Titration 68.670 100 16.995 Amount propofoL 1,000 mg In 68.670 100 16.995 Empty Bag 1 bag @ Titrate IV .Q0M [facility] Rx#: [id number] Output: Urine 5 5 - Labs CBC & Chem 7: 01/29/21 04:16 01/29/21 04:16 Labs: Abnormal Lab Results - Last 24 Hours (Table) 01/28/21 01/28/21 01/28/21 Range/Units 14:37 14:38 14:38 WBC 14.8 H (3.8-10.6) k/uL RBC 3.07 L (3.80-5.40) m/uL Hgb 9.3 L (11.4-16.0) gm/dL Hct 30.1 L (34.0-46.0) % MCHC 30.7 L (31.0-37.0) g/dL RDW 17.0 H (11.5-15.5) % Neutrophils # 12.7 H (1.3-7.7) k/uL PT (9.0-12.0) sec INR (<1.2) ABG pH (7.35-7.45) ABG pCO2 (35-45) mmHg ABG pO2 (83-108) mmHg ABG HCO3 (21-25) mmol/L ABG Total CO2 (19-24) mmol/L ABG O2 Saturation (94-97) % Sodium (137-145) mmol/L Chloride (98-107) mmol/L BUN (7-17) mg/dL Creatinine (0.52-1.04) mg/dL Glucose (74-99) mg/dL POC Glucose (mg/dL) (75-99) mg/dL Troponin I 0.079 H* (0.000-0.034) ng/mL Urine pH 8.5 H (5.0-8.0) Urine Protein 3+ H (Negative) Urine Glucose (UA) 2+ H (Negative) Urine Blood Trace H (Negative) Urine RBC 16 H (0-5) /hpf Urine WBC 6 H (0-5) /hpf Urine Bacteria Rare H (None) /hpf Urine Mucus Rare H (None) /hpf Coronavirus (PCR) (Not Detectd) 01/28/21 01/28/21 01/28/21 Range/Units 14:45 15:59 17:37 WBC (3.8-10.6) k/uL RBC (3.80-5.40) m/uL Hgb (11.4-16.0) gm/dL Hct (34.0-46.0) % MCHC (31.0-37.0) g/dL RDW (11.5-15.5) % Neutrophils # (1.3-7.7) k/uL PT 13.2 H (9.0-12.0) sec INR 1.3 H (<1.2) ABG pH (7.35-7.45) ABG pCO2 50 H (35-45) mmHg ABG pO2 250 H (83-108) mmHg ABG HCO3 32 H (21-25) mmol/L ABG Total CO2 34 H (19-24) mmol/L ABG O2 Saturation 100.0 H (94-97) % Sodium (137-145) mmol/L Chloride (98-107) mmol/L BUN (7-17) mg/dL Creatinine (0.52-1.04) mg/dL Glucose (74-99) mg/dL POC Glucose (mg/dL) 191 H (75-99) mg/dL Troponin I (0.000-0.034) ng/mL Urine pH (5.0-8.0) Urine Protein (Negative) Urine Glucose (UA) (Negative) Urine Blood (Negative) Urine RBC (0-5) /hpf Urine WBC (0-5) /hpf Urine Bacteria (None) /hpf Urine Mucus (None) /hpf Coronavirus (PCR) (Not Detectd) 01/28/21 01/28/21 01/28/21 Range/Units 20:07 21:42 23:47 WBC (3.8-10.6) k/uL RBC (3.80-5.40) m/uL Hgb (11.4-16.0) gm/dL Hct (34.0-46.0) % MCHC (31.0-37.0) g/dL RDW (11.5-15.5) % Neutrophils # (1.3-7.7) k/uL PT (9.0-12.0) sec INR (<1.2) ABG pH (7.35-7.45) ABG pCO2 (35-45) mmHg ABG pO2 (83-108) mmHg ABG HCO3 (21-25) mmol/L ABG Total CO2 (19-24) mmol/L ABG O2 Saturation (94-97) % Sodium (137-145) mmol/L Chloride (98-107) mmol/L BUN (7-17) mg/dL Creatinine (0.52-1.04) mg/dL Glucose (74-99) mg/dL POC Glucose (mg/dL) 187 H 200 H (75-99) mg/dL Troponin I (0.000-0.034) ng/mL Urine pH (5.0-8.0) Urine Protein (Negative) Urine Glucose (UA) (Negative) Urine Blood (Negative) Urine RBC (0-5) /hpf Urine WBC (0-5) /hpf Urine Bacteria (None) /hpf Urine Mucus (None) /hpf Coronavirus (PCR) Detected A (Not Detectd) 01/29/21 01/29/21 01/29/21 Range/Units 04:16 04:16 05:36 WBC (3.8-10.6) k/uL RBC 2.82 L (3.80-5.40) m/uL Hgb 8.8 L (11.4-16.0) gm/dL Hct 27.4 L (34.0-46.0) % MCHC (31.0-37.0) g/dL RDW 16.9 H (11.5-15.5) % Neutrophils # (1.3-7.7) k/uL PT (9.0-12.0) sec INR (<1.2) ABG pH 7.52 H (7.35-7.45) ABG pCO2 (35-45) mmHg ABG pO2 130 H (83-108) mmHg ABG HCO3 30 H (21-25) mmol/L ABG Total CO2 31 H (19-24) mmol/L ABG O2 Saturation 99.0 H (94-97) % Sodium 130 L (137-145) mmol/L Chloride 93 L (98-107) mmol/L BUN 18 H (7-17) mg/dL Creatinine 3.51 H (0.52-1.04) mg/dL Glucose 191 H (74-99) mg/dL POC Glucose (mg/dL) (75-99) mg/dL Troponin I (0.000-0.034) ng/mL Urine pH (5.0-8.0) Urine Protein (Negative) Urine Glucose (UA) (Negative) Urine Blood (Negative) Urine RBC (0-5) /hpf Urine WBC (0-5) /hpf Urine Bacteria (None) /hpf Urine Mucus (None) /hpf Coronavirus (PCR) (Not Detectd) 01/29/21 01/29/21 Range/Units 05:36 13:41 WBC (3.8-10.6) k/uL RBC (3.80-5.40) m/uL Hgb (11.4-16.0) gm/dL Hct (34.0-46.0) % MCHC (31.0-37.0) g/dL RDW (11.5-15.5) % Neutrophils # (1.3-7.7) k/uL PT (9.0-12.0) sec INR (<1.2) ABG pH (7.35-7.45) ABG pCO2 (35-45) mmHg ABG pO2 (83-108) mmHg ABG HCO3 (21-25) mmol/L ABG Total CO2 (19-24) mmol/L ABG O2 Saturation (94-97) % Sodium (137-145) mmol/L Chloride (98-107) mmol/L BUN (7-17) mg/dL Creatinine (0.52-1.04) mg/dL Glucose (74-99) mg/dL POC Glucose (mg/dL) 186 H 157 H (75-99) mg/dL Troponin I (0.000-0.034) ng/mL Urine pH (5.0-8.0) Urine Protein (Negative) Urine Glucose (UA) (Negative) Urine Blood (Negative) Urine RBC (0-5) /hpf Urine WBC (0-5) /hpf Urine Bacteria (None) /hpf Urine Mucus (None) /hpf Coronavirus (PCR) (Not Detectd) Microbiology - Last 24 Hours (Table) 01/28/21 14:21 Gram Stain - Preliminary Gastric Aspirate Sputum Culture - Preliminary Assessment and Plan Plan: -Cardiorespiratory arrest leading to respiratory failure: Secondary to went her tachycardia patient was started on amiodarone drip, patient is presently intubated, echocardiogram as mentioned above . -Acute hypoxic respiratory failure leading to anoxic brain injury neurology is evaluating the patient's sedation is off. Will monitor and see how she responds tonight. Prognosis appears to be poor -Volume overload: Secondary to end-stage renal disease nephrology evaluated the patient. -Fever: Most probably secondary to cardiorespiratory arrest blood cultures will be obtained chest x-ray findings are more consistent with volume overload that pneumonia patient will empirically be started on Zosyn -Recent covid 19 infection and month of October because of which I'm not repeating PCR for Covid -End-stage renal disease, dialysis dependent -Type 2 diabetes mellitus patient is on sliding scale will hold off on long- acting insulin history of DVT for which patient is on Eliquis -Hypertension -Diabetic peripheral neuropathy -bilateral lower extremity ulcers doesn't appear to have cellulitis but does have chronic lymphedema
--- NOTE | 2021-01-29 19:06 | CT ---
EXAMINATION TYPE: CT brain wo con DATE OF EXAM: 01/29/2021 COMPARISON: 01/25/2021 HISTORY: Altered mental status. CT DLP: 1099.4 mGycm Automated exposure control for dose reduction was used. Ventricles have normal size. There is no mass effect nor midline shift. There is no sign of intracran ial hemorrhage. Calvarium is intact. Skull base is intact. There is normal aeration of the mastoid si nuses. IMPRESSION: Negative unenhanced head CT scan. No change.
[2021-01-29 19:26] LABS: Glucose,Whole Blood 186 mg/dL (75-99)
[2021-01-29] MEDS: amLODIPine 10 MG TAB PO SCH (21:56)
[2021-01-29] MEDS: levETIRAcetam IV 500 MG in SODIUM CHLORIDE 0.9% 100 ML IVPB SCH (22:09)
[2021-01-30 00:09] LABS: Glucose,Whole Blood 172 mg/dL (75-99)
[2021-01-30] MEDS: INSULIN ASPART (NovoLOG) 100 UNIT/ML VIAL SQ SCH ×4 (00:17→18:40)
[2021-01-30 04:43] LABS: Calcium 8.2 mg/dL (8.4-10.2)
[2021-01-30 04:44] LABS: Potassium 4.9 mmol/L (3.5-5.1)
[2021-01-30 04:47] LABS: Anisocytosis Slight; Basophils # (A) 0.1 k/uL (0-0.2); Basophils % (A) 1 %; Eosinophils # (A) 0.3 k/uL (0-0.7); Eosinophils % (A) 2 %; HCT 26.4 % (34.0-46.0); HGB 8.6 gm/dL (11.4-16.0); Hypochromasia Slight; Lymphocytes # (A) 1.6 k/uL (1.0-4.8); Lymphocytes % (A) 14 %; MCH 31.2 pg (25.0-35.0); MCHC 32.5 g/dL (31.0-37.0); MCV 95.9 fL (80.0-100.0); Macrocytosis Slight; Mean Platelet Volume 7.5; Monocytes # (A) 1.1 k/uL (0-1.0); Monocytes % (A) 9 %; Neutrophils # (A) 8.6 k/uL (1.3-7.7); Neutrophils % (A) 73 %; Platelet Count 262 k/uL (150-450); RBC 2.75 m/uL (3.80-5.40); RDW 17.2 % (11.5-15.5); WBC 11.9 k/uL (3.8-10.6)
[2021-01-30 05:54] LABS: Glucose,Whole Blood 116 mg/dL (75-99)
[2021-01-30 05:56] LABS: ABG Base Excess 6.7 mmol/L; ABG HCO3 30 mmol/L (21-25); ABG PCO2 42 mmHg (35-45); ABG PH 7.47 (7.35-7.45); ABG PO2 123 mmHg (83-108); ABG TCO2 32 mmol/L (19-24); Allen Test Performed? Yes
[2021-01-30] MEDS: CALCIUM ACETATE 667 MG TAB PO SCH ×2 (07:03→18:39)
--- NOTE | 2021-01-30 07:20 | XR ---
EXAMINATION TYPE: XR chest 1V portable DATE OF EXAM: 01/30/2021 COMPARISON: 01/29/2021 HISTORY: Tube placement. TECHNIQUE: Single frontal view of the chest is obtained. FINDINGS: There is interval retraction of the nasogastric tube now terminating above the diaphragm. Endotracheal tube is slightly retracted terminating 4 cm above the ady. There is slight decrease o f bilateral hazy and streaky opacities with small left pleural effusion. No pneumothorax seen. The c ardiac silhouette size is within normal limits. The osseous structures are intact. IMPRESSION: Interval retraction of NG tube, now terminating above the diaphragm. Recommend adjustmen t. Decreasing bibasilar opacities with mild to moderate residual.
[2021-01-30] MEDS: ASPIRIN 81 MG PO SCH (07:55)
[2021-01-30] MEDS: APIXABAN 2.5 MG TABLET PO SCH ×2 (07:55→19:46)
[2021-01-30] MEDS: PIPERACILLIN-TAZOBACTAM 3.375 GM in SODIUM CHLORIDE 0.9% 100 ML IVPB SCH ×2 (07:55→19:47)
[2021-01-30] MEDS: CHLORHEXIDINE GLUCONATE 15 ML CUP MUCOUS MEM SCH ×2 (07:55→19:46)
[2021-01-30] MEDS: ZINC SULFATE 220 MG CAP PO SCH ×2 (07:55→19:46)
[2021-01-30] MEDS: PANTOPRAZOLE 40 MG/10 ML VIAL IVP SCH ×2 (07:55→19:46)
[2021-01-30] MEDS: ALBUTEROL HFA INHALER INHALATION PRN ×3 (08:47→21:56)
[2021-01-30] MEDS: levETIRAcetam IV 500 MG in SODIUM CHLORIDE 0.9% 100 ML IVPB SCH ×2 (08:59→19:50)
[2021-01-30] MEDS ORDERED: CISATRACURIUM 2 MG/ML 5 ML VIAL IV PRN (10:09)
--- NOTE | 2021-01-30 10:14 | P.PN ---
Subjective Progress Note Date: 01/30/21 She was seen at bedside and she continues to be intubated and the recently her propofol IV was just held. Per the patient nurse she stated that the the propofol was restarted around 2100 overnight since the patient was buckling on ventilator. She was on propofol 30mcg/kg/min. Otherwise no spontaneous mo vement noted. CT of the head is reported as negative unenhanced head CT scan. No change. Objective - Vital Signs Vital signs: Vital Signs Temp 98.3 F 01/30/21 08:00 Pulse 63 01/30/21 08:00 Resp 16 01/30/21 08:00 BP 136/58 01/30/21 08:00 Pulse Ox 99 01/30/21 08:00 Intake & Output 01/29/21 01/30/21 01/30/21 18:59 06:59 18:59 Intake Total 126.995 120 20 Output Total 30 10 0 Balance 96.995 110 20 Weight 103.4 kg Intake: IV 110 120 20 0.9 @ 10ml/hr 110 120 20 Intake, IV Titration 16.995 0 Amount propofoL 1,000 mg In 16.995 0 Empty Bag 1 bag @ Titrate IV .Q0M [facility] Rx#: [id number] Output: Urine 30 10 0 - Exam GENERAL: The patient is lying in bed and is not in acute distress. The propofol drip has been held for 5 minute prior to testing. LUNG: Intubated on ventilator. Clear to auscultation bilaterally no wheezing noted throughout. Not labored breathing. Breathing over the vent. NEUROLOGICAL: Limited because of her condition. Propofol held for (was on Propofol drip 30mcg/kg/min). Higher mental function: GCS 3 (E1,VT1,M1). Patient is non responisve and does not open eyes or follow commands. Cranial nerves: Upon manually opens the eyes, primary gaze is midline. Pupils are 2mm and sluggishly reactive to light. +ve corneal reflex over both eyes. No facial weakness. Has weak cough reflex. Is breathing over the vent. Otherwise could not assess rest of cranial nerves. Motor: No movement noted sponateously or to painful stimuli. Normal tone. Has lymphedema of bilateral lower extremities. Cerebellum: Could not assess. Sensation: Could not assess. Reflexes (right/left): 2+ uppers. 0 in lowers and limited because of lymphedema. Plantars are mute bilaterally. - Labs CBC & Chem 7: 01/30/21 13:10 01/30/21 04:02 Labs: Abnormal Lab Results - Last 24 Hours (Table) 01/29/21 01/29/21 01/30/21 Range/Units 13:41 19:25 00:07 WBC (3.8-10.6) k/uL RBC (3.80-5.40) m/uL Hgb (11.4-16.0) gm/dL Hct (34.0-46.0) % RDW (11.5-15.5) % Neutrophils # (1.3-7.7) k/uL Monocytes # (0-1.0) k/uL ABG pH (7.35-7.45) ABG pO2 (83-108) mmHg ABG HCO3 (21-25) mmol/L ABG Total CO2 (19-24) mmol/L ABG O2 Saturation (94-97) % Sodium (137-145) mmol/L Chloride (98-107) mmol/L BUN (7-17) mg/dL Creatinine (0.52-1.04) mg/dL Glucose (74-99) mg/dL POC Glucose (mg/dL) 157 H 186 H 172 H (75-99) mg/dL Calcium (8.4-10.2) mg/dL 01/30/21 01/30/21 01/30/21 Range/Units 04:02 04:02 05:13 WBC 11.9 H (3.8-10.6) k/uL RBC 2.75 L (3.80-5.40) m/uL Hgb 8.6 L (11.4-16.0) gm/dL Hct 26.4 L (34.0-46.0) % RDW 17.2 H (11.5-15.5) % Neutrophils # 8.6 H (1.3-7.7) k/uL Monocytes # 1.1 H (0-1.0) k/uL ABG pH 7.47 H (7.35-7.45) ABG pO2 123 H (83-108) mmHg ABG HCO3 30 H (21-25) mmol/L ABG Total CO2 32 H (19-24) mmol/L ABG O2 Saturation 99.0 H (94-97) % Sodium 132 L (137-145) mmol/L Chloride 96 L (98-107) mmol/L BUN 27 H (7-17) mg/dL Creatinine 4.63 H (0.52-1.04) mg/dL Glucose 126 H (74-99) mg/dL POC Glucose (mg/dL) (75-99) mg/dL Calcium 8.2 L (8.4-10.2) mg/dL 01/30/21 Range/Units 05:53 WBC (3.8-10.6) k/uL RBC (3.80-5.40) m/uL Hgb (11.4-16.0) gm/dL Hct (34.0-46.0) % RDW (11.5-15.5) % Neutrophils # (1.3-7.7) k/uL Monocytes # (0-1.0) k/uL ABG pH (7.35-7.45) ABG pO2 (83-108) mmHg ABG HCO3 (21-25) mmol/L ABG Total CO2 (19-24) mmol/L ABG O2 Saturation (94-97) % Sodium (137-145) mmol/L Chloride (98-107) mmol/L BUN (7-17) mg/dL Creatinine (0.52-1.04) mg/dL Glucose (74-99) mg/dL POC Glucose (mg/dL) 116 H (75-99) mg/dL Calcium (8.4-10.2) mg/dL Assessment and Plan Assessment: This is a 65-year-old woman with multiple medical problems that presented emergency department on 01/28/2021 after a cardiac arrest in which she suffered around 13:10. Seems that the she had a cardiac arrest lasting for 25 minutes * Encephalopathy due to multiple factorial: Anoxic brain injury from prolonged cardiac arrest and component of metabolic encephalopathy (uncontrolled sugar, hypotensive), underlying pneuomonia from COVID 19 and medication effect (propofol IV drip). * Cardiac arrest on 01/28/2021 lasting 25 minutes * Acute pneumonia due to Osiel 19 * Uncontrolled the diabetes mellitus and has brittle sugar level (episodes of hypoglycemia 40's to 50's in Nov and December/2020) * Mild elevated troponin * Mild hyponatremia * Hypertension * End-stage renal is on dialysis * Carotid artery disease * DVT on Eliquis * History of poor peripheral neuropathy Plan: EEG report: Is abnornmal routine EEG. The background slowing is severe encephalopathy. There is suspicous sharp and slow wave concerning for epileptiform discharge without evolution to seizure. There is no seizure on EEG. Continue Keppra 500 mg 1 tablet twice a day. I'll order an additional 500mg post dialysis (M,W,F). If no seizure consider tapering Keppra. I ordered a repeat EEG stat for today 2-D echo is pending. I recommend repeat CT head for tomorrow. Continue Ordered Q1 hour neuro checks Currently the patient is on Eliquis 2.5 mg tablet twice a day as well as aspirin 81 mg. Regarding the mild elevated troponin cardiology is on board. Please avoid any hypotensive episode or hypoglycemic episode and will defer management to primary team and ICU team. We'll defer the rest of medical management to the primary/ICU team. The patient prognosis appears poor (since prolonged cardiac arrest, only has brainstem reflex and multiple comorbitidies. But will determine better after further work-up). I spoke with the patient's (Solomon) and patient's daughter via phone and relayed my impression to him. The plan was discussed with the patient's nurse. Lenny Fernandez M.D. Neuro-hospitalist Time with Patient: Greater than 30
--- NOTE | 2021-01-30 11:29 | XR ---
EXAMINATION TYPE: XR chest 1V portable DATE OF EXAM: 01/30/2021 Comparison: 01/30/2021 Clinical History: 65-year-old female central line placement Findings: ET tube tip at the level of the clavicular heads. NG tube is short. The tip is just above the GE junc tion. I then 7 mm into the stomach. Heart mildly enlarged. Diffuse interstitial density. Patchy retro cardiac opacity. Central line is not visualized. There is right paratracheal soft tissue prominence t hat could be projectional. Impression: 1. Right paratracheal soft tissue prominence increased from prior, may be projectional. However, we a re unable to visualize a CVC. If there was unsuccessful attempted CVC placement and concern for vascu lar injury, CT can be considered. 2. Diffuse interstitial changes, correlate for worsening pulmonary vascular congestion. Retrocardiac opacity persists. 3. ET tube remains short. The tip just above the GE junction. This can be further advanced by 10 cm i nto the stomach.
--- NOTE | 2021-01-30 12:09 | P.PN ---
Subjective Progress Note Date: 01/30/21 Follow-up for ESRD, still not waking up. Objective - Vital Signs Vital signs: Vital Signs Temp 98.3 F 01/30/21 08:00 Pulse 67 01/30/21 11:00 Resp 17 01/30/21 11:00 BP 162/78 01/30/21 11:00 Pulse Ox 97 01/30/21 11:00 Intake & Output 01/29/21 01/30/21 01/30/21 18:59 06:59 18:59 Intake Total 126.995 120 278.005 Output Total 30 10 10 Balance 96.995 110 268.005 Weight 103.4 kg Intake: IV 110 120 195 0.9 @ 10ml/hr 110 120 20 Piperacillin-Tazobactam 3 75 .375 gm In Sodium Chloride 0.9% 100 ml @ 25 mls/hr IVPB Q12HR [facility] Rx #:[id number] levETIRAcetam IV 500 mg 100 In Sodium Chloride 0.9% 100 ml @ 400 mls/hr IVPB Q12HR [facility] Rx#:[id number] Intake, IV Titration 16.995 0 83.005 Amount propofoL 1,000 mg In 16.995 0 83.005 Empty Bag 1 bag @ Titrate IV .Q0M [facility] Rx#: [id number] Output: Urine 30 10 10 ABP, PAP, CO, CI - Last Documented Arterial Blood Pressure 164/58 - Exam Exam limited secondary to Covid 19 pandemic to limit PPE. - Labs CBC & Chem 7: 01/30/21 04:02 01/30/21 04:02 Labs: Abnormal Lab Results - Last 24 Hours (Table) 01/29/21 01/29/21 01/30/21 Range/Units 13:41 19:25 00:07 WBC (3.8-10.6) k/uL RBC (3.80-5.40) m/uL Hgb (11.4-16.0) gm/dL Hct (34.0-46.0) % RDW (11.5-15.5) % Neutrophils # (1.3-7.7) k/uL Monocytes # (0-1.0) k/uL ABG pH (7.35-7.45) ABG pO2 (83-108) mmHg ABG HCO3 (21-25) mmol/L ABG Total CO2 (19-24) mmol/L ABG O2 Saturation (94-97) % Sodium (137-145) mmol/L Chloride (98-107) mmol/L BUN (7-17) mg/dL Creatinine (0.52-1.04) mg/dL Glucose (74-99) mg/dL POC Glucose (mg/dL) 157 H 186 H 172 H (75-99) mg/dL Calcium (8.4-10.2) mg/dL 01/30/21 01/30/21 01/30/21 Range/Units 04:02 04:02 05:13 WBC 11.9 H (3.8-10.6) k/uL RBC 2.75 L (3.80-5.40) m/uL Hgb 8.6 L (11.4-16.0) gm/dL Hct 26.4 L (34.0-46.0) % RDW 17.2 H (11.5-15.5) % Neutrophils # 8.6 H (1.3-7.7) k/uL Monocytes # 1.1 H (0-1.0) k/uL ABG pH 7.47 H (7.35-7.45) ABG pO2 123 H (83-108) mmHg ABG HCO3 30 H (21-25) mmol/L ABG Total CO2 32 H (19-24) mmol/L ABG O2 Saturation 99.0 H (94-97) % Sodium 132 L (137-145) mmol/L Chloride 96 L (98-107) mmol/L BUN 27 H (7-17) mg/dL Creatinine 4.63 H (0.52-1.04) mg/dL Glucose 126 H (74-99) mg/dL POC Glucose (mg/dL) (75-99) mg/dL Calcium 8.2 L (8.4-10.2) mg/dL 01/30/21 Range/Units 05:53 WBC (3.8-10.6) k/uL RBC (3.80-5.40) m/uL Hgb (11.4-16.0) gm/dL Hct (34.0-46.0) % RDW (11.5-15.5) % Neutrophils # (1.3-7.7) k/uL Monocytes # (0-1.0) k/uL ABG pH (7.35-7.45) ABG pO2 (83-108) mmHg ABG HCO3 (21-25) mmol/L ABG Total CO2 (19-24) mmol/L ABG O2 Saturation (94-97) % Sodium (137-145) mmol/L Chloride (98-107) mmol/L BUN (7-17) mg/dL Creatinine (0.52-1.04) mg/dL Glucose (74-99) mg/dL POC Glucose (mg/dL) 116 H (75-99) mg/dL Calcium (8.4-10.2) mg/dL Microbiology - Last 24 Hours (Table) 01/28/21 14:21 Gram Stain - Final Gastric Aspirate Sputum Culture - Final Assessment and Plan Assessment: #1 status post cardiopulmonary arrest #2 ESRD MWF. #3 Covid 19 #4 anemia with ESRD #5 hypertension with ESRD #6 metabolic bone disease with ESRD Plan: #1 hemodialysis on Sunday as per outpatient schedule. #2 ICU care #3 cleared from nephrology for CT with contrast.
--- NOTE | 2021-01-30 12:11 | P.PN ---
Subjective Progress Note Date: 01/30/21 Principal diagnosis: Cardiac arrest and anoxic brain injury This is a 65-year-old female with history of multiple medical problems, known to have end-stage renal disease, on hemodialysis, type 2 diabetes, coronary artery disease, cardiogenic in the form of ventricular tachycardia, patient had had hemodialysis yesterday, and she went home felt nauseated, while at home the patient had a sudden cardiac arrest at 1310. Family initiated CPR according to EMS, fire department arrived to the scene and found the patient to be unresponsive, in ventricular fibrillation. She was defibrillated, and CPR was continued. Patient received epinephrine, and after the second the defibrill ation, there was return of spontaneous circulation. Down time was in the range of 20 minutes. Patient was brought into the emergency room, kept on mechanical ventilation, she was hemodynamically stable not requiring any pressors. Transferred to the ICU, and I was asked to see her on consultation. The major concern at this point is the fact that the patient had a prolonged downtime, and she most likely sustained anoxic brain injury. Hence a neurological consultation was initiated on this patient. I discontinued all her sedation and we will arrange for neurological consultation. Ventilator oreilly the patient is on assist control rate of 14, volume 350 FiO2 went down from 60% to 45%, ABG s howed a pO2 of 130 pCO2 of 36 pH of 7.52. All this information was obtained from the chart, no family members available at bedside Patient was reevaluated today on 01/30/2021, remains in the ICU, intubated and mechanically ventilated. Her ventilator settings are assist control rate of 14 tidal volume of 350 FiO2 is 50% PEEP of 5. Patient remains on propofol at 30 mcg/kg/m, remains on antibiotics for her cellulitis she is on Zosyn. Patient is only withdrawing to painful stimuli, but no purposeful movement. She was seen by neurology on consultation, and neurology feels that the patient has anoxic brain injury from prolonged cardiac arrest along with metabolic encephalopathy. In addition to all of this she has underlying covid 19 pneumonia. In addition to this, the patient has history of end-stage renal disease on hemodialysis, she also had history of DVT maintained on all across, and history of peripheral neuropathy. Labs today showed a pO2 of 123 pCO2 of 42 pH of 7.47 her WBC count is 11.9 hemoglobin is 8.6. BUN is 27 creatinine is 4.63. Objective - Vital Signs Vital signs: Vital Signs Temp 98.3 F 01/30/21 08:00 Pulse 67 01/30/21 11:00 Resp 17 01/30/21 11:00 BP 162/78 01/30/21 11:00 Pulse Ox 97 01/30/21 11:00 Intake & Output 01/29/21 01/30/21 01/30/21 18:59 06:59 18:59 Intake Total 126.995 120 278.005 Output Total 30 10 10 Balance 96.995 110 268.005 Weight 103.4 kg Intake: IV 110 120 195 0.9 @ 10ml/hr 110 120 20 Piperacillin-Tazobactam 3 75 .375 gm In Sodium Chloride 0.9% 100 ml @ 25 mls/hr IVPB Q12HR EL[facility] Rx #:[id number] levETIRAcetam IV 500 mg 100 In Sodium Chloride 0.9% 100 ml @ 400 mls/hr IVPB Q12HR ELIF Rx#:[id number] Intake, IV Titration 16.995 0 83.005 Amount propofoL 1,000 mg In 16.995 0 83.005 Empty Bag 1 bag @ Titrate IV .Q0M ELIF Rx#: [id number] Output: Urine 30 10 10 ABP, PAP, CO, CI - Last Documented Arterial Blood Pressure 164/58 - Exam Physical Exam: Revealed a 65-year-old female intubated, mechanically ventilated, sedated, on propofol Head: Atraumatic, normocephalic, endotracheal tube and orogastric tubes are noted. And seems to be intact. HEENT:[Neck is supple.] [No neck masses.] [No thyromegaly.] [No JVD.] Dry mucous membranes noted. Throat is clear. Chest: [Symmetrical chest expansion, minimal fine crackles at the bases, no rhonchi and no wheezes..] Cardiac Exam: [Normal S1 and S2, no S3 gallop, no murmur.] Abdomen: [Soft, nontender, no megaly, no rebound, no guarding, normal bowel sounds.] Extremities: [No clubbing, no edema, no cyanosis.] Neurological Exam: Patient is sedated, unresponsive to any painful stimuli. No change in the neurological status compared to yesterday. Extremities there is evidence of lymphedema in both lower extremities, and areas of cellulitis on the medial aspects of her tibias bilaterally. Skin: As noted above. Musculoskeletal could not assess. - Labs CBC & Chem 7: 01/30/21 04:02 01/30/21 04:02 Labs: Abnormal Lab Results - Last 24 Hours (Table) 01/29/21 01/29/21 01/30/21 Range/Units 13:41 19:25 00:07 WBC (3.8-10.6) k/uL RBC (3.80-5.40) m/uL Hgb (11.4-16.0) gm/dL Hct (34.0-46.0) % RDW (11.5-15.5) % Neutrophils # (1.3-7.7) k/uL Monocytes # (0-1.0) k/uL ABG pH (7.35-7.45) ABG pO2 (83-108) mmHg ABG HCO3 (21-25) mmol/L ABG Total CO2 (19-24) mmol/L ABG O2 Saturation (94-97) % Sodium (137-145) mmol/L Chloride (98-107) mmol/L BUN (7-17) mg/dL Creatinine (0.52-1.04) mg/dL Glucose (74-99) mg/dL POC Glucose (mg/dL) 157 H 186 H 172 H (75-99) mg/dL Calcium (8.4-10.2) mg/dL 01/30/21 01/30/21 01/30/21 Range/Units 04:02 04:02 05:13 WBC 11.9 H (3.8-10.6) k/uL RBC 2.75 L (3.80-5.40) m/uL Hgb 8.6 L (11.4-16.0) gm/dL Hct 26.4 L (34.0-46.0) % RDW 17.2 H (11.5-15.5) % Neutrophils # 8.6 H (1.3-7.7) k/uL Monocytes # 1.1 H (0-1.0) k/uL ABG pH 7.47 H (7.35-7.45) ABG pO2 123 H (83-108) mmHg ABG HCO3 30 H (21-25) mmol/L ABG Total CO2 32 H (19-24) mmol/L ABG O2 Saturation 99.0 H (94-97) % Sodium 132 L (137-145) mmol/L Chloride 96 L (98-107) mmol/L BUN 27 H (7-17) mg/dL Creatinine 4.63 H (0.52-1.04) mg/dL Glucose 126 H (74-99) mg/dL POC Glucose (mg/dL) (75-99) mg/dL Calcium 8.2 L (8.4-10.2) mg/dL 01/30/21 Range/Units 05:53 WBC (3.8-10.6) k/uL RBC (3.80-5.40) m/uL Hgb (11.4-16.0) gm/dL Hct (34.0-46.0) % RDW (11.5-15.5) % Neutrophils # (1.3-7.7) k/uL Monocytes # (0-1.0) k/uL ABG pH (7.35-7.45) ABG pO2 (83-108) mmHg ABG HCO3 (21-25) mmol/L ABG Total CO2 (19-24) mmol/L ABG O2 Saturation (94-97) % Sodium (137-145) mmol/L Chloride (98-107) mmol/L BUN (7-17) mg/dL Creatinine (0.52-1.04) mg/dL Glucose (74-99) mg/dL POC Glucose (mg/dL) 116 H (75-99) mg/dL Calcium (8.4-10.2) mg/dL Microbiology - Last 24 Hours (Table) 01/28/21 14:21 Gram Stain - Final Gastric Aspirate Sputum Culture - Final Assessment and Plan Assessment: Impression: Cardiac arrest most likely secondary to cardiac arrhythmia initial rhythm was ventricular fibrillation upon EMS arrival. Acute hypoxic respiratory failure secondary to above. Bilateral interstitial edema most likely secondary to end-stage renal disease and suspect acute systolic congestive heart failure, likely ischemic in nature. Cardiac workup is pending. Strongly suspect anoxic brain injury and metabolic encephalopathy secondary to cardiac arrest. Type 2 diabetes. Benign essential hypertension. end stage renal disease on hemodialysis. History of carotid artery disease. History of DVT been maintained on all across. History of diabetic peripheral neuropathy. History of cardiac arrhythmia requiring cardiac ablation. Chronic lymphedema and cellulitis of both lower extremities. History of irritable bowel syndrome. History of covid 19 infection in October of 2020 Possible right paratracheal hematoma from attempted central line placement, CT of the chest was ordered. Recommendation: Continue ventilatory support. Continue nutritional support. Continue hemodynamic support if needed. Continue GI and DVT prophylaxis. Resume hemodialysis as the patient has chest x-ray suggestive of fluid overload secondary to her end-stage renal disease. Cardiology to see on consultation for possible acute systolic congestive heart failure and LV dysfunction, echocardiogram is pending. Insulin to control her diabetes. Empiric antibiotics/Zosyn for cellulitis and Silvadene to be applied to areas of cellulitis and ulcers in the lower extremities. Neurologic consultation to assess her anoxic brain injury. Nephrology to resume hemodialysis. Extreme poor prognosis considering all the comorbidities and considering her prolonged cardiac arrest. Critical care time is greater than 30 minutes not including the time spent on procedures Time with Patient: Greater than 30
--- NOTE | 2021-01-30 12:25 | PN ---
PROGRESS NOTE Clarissa is a 65-year-old lady with history of end-stage renal disease on hemodialysis, who presented to hospital having had a cardiac arrest at home. She was resuscitated initially by and daughter and subsequently the EMS, was intubated, brought to the ER where I saw her for the first time. An echocardiogram on this admission revealed normal LV systolic function. The patient suffered from COVID infection back in September and this time again she came back Covid positive and she is currently on isolation and Covid protocol. She remains intubated on vent without significant spontaneous activity. She has had an EEG yesterday which showed some seizure like activity. She remains in sinus rhythm and is otherwise stable. EXAM: Afebrile. Heart rate is 83 beats per minute. Blood pressure is 136/58, respiratory rate is 16, O2 saturation is 99% on 50% FiO2 and she is mechanically ventilated. Labs show a hemoglobin of 8.6, platelet count is 262. Her white cell count is 11.9, potassium is 4.9. Creatinine is 4.6 with a BUN of 27. Her blood gases show a pH of 7.4, pCO2 42, PO2 123. Chest x-ray revealed bibasilar opacities that have improved since yesterday. The patient is currently on Eliquis 2.5 b.i.d., Norvasc 10 mg daily, Lasix 80 mg b.i.d., Keppra, Protonix, Norvasc, and Ventolin. ASSESSMENT: 1. Status post cardiac arrest. 2. End-stage renal disease on hemodialysis. 3. Covid infection. 4. Vent requiring respiratory failure. 5. Possible hypoxic encephalopathy. PLAN: Patient will continue current supportive care. Prognosis is guarded. MMODL / IJN: [id number] /
[2021-01-30 12:37] LABS: Glucose,Whole Blood 144 mg/dL (75-99)
--- NOTE | 2021-01-30 12:46 | PCN ---
PROCEDURE NOTE OPERATIVE REPORT: Attempt of placement of a right subclavian and right internal jugular central venous catheter. PREOPERATIVE DIAGNOSIS: Acute hypoxic respiratory failure, anoxic brain injury, cardiac arrest. POSTOP DIAGNOSIS: Acute hypoxic respiratory failure, anoxic brain injury, cardiac arrest. ANESTHESIA: 2 mL of 1% lidocaine. DESCRIPTION OF PROCEDURE: The patient was placed in a Trendelenburg position, the right neck was prepared in a sterile fashion and drapes were applied. The right neck area was locally anesthetized just behind the posterior belly of the sternocleidomastoid. Using the posterior approach, attempts were made to cannulate the right internal jugular vein, however, a couple of these attempts failed and cannulated the right carotid artery. Then, the area of the subclavian region was prepared again in a sterile fashion. Attempts to cannulate the right subclavian vein also failed and there was a right subclavian pulsation through the needle. Hence no further attempts were made. Chest x-ray post these two trials of cannulating the right IJ or the right subclavian showed questionable right paratracheal soft tissue prominence and possible vascular injury, and a CT of the chest was ordered to figure out the exact injury if there is one. No further attempts were made to cannulate the right internal jugular vein or the right subclavian vein, and right central line was placed in the right groin after this. MMWENDIE / DUKEN: [id number] /
--- NOTE | 2021-01-30 12:46 | PCN ---
PROCEDURE NOTE PROCEDURE PERFORMED: Placement of a right femoral triple-lumen catheter. PREOPERATIVE DIAGNOSIS: Acute hypoxic respiratory failure secondary to cardiac arrest and anoxic brain injury. POSTOPERATIVE DIAGNOSIS: Acute hypoxic respiratory failure secondary to cardiac arrest and anoxic brain injury. ANESTHESIA: None deployed. PROCEDURE DETAILS: The right groin was prepared in a sterile fashion. Drapes were applied. The right femoral vein was easily cannulated, and a guidewire was placed. A triple-lumen catheter was inserted over the guidewire, after dilating around the guidewire. The tip was advanced and the guidewire was removed. The line was secured using 3.0 silk sutures, no evidence of any immediate complications. MMODL / IJN: [id number] /
--- NOTE | 2021-01-30 12:46 | PCN ---
PROCEDURE NOTE PROCEDURE: Placement of a right radial arterial line. PREOPERATIVE DIAGNOSES: Acute hypoxic respiratory failure, cardiac arrest, and anoxic brain injury. POSTOP DIAGNOSES: Acute hypoxic respiratory failure, cardiac arrest, and anoxic brain injury. ANESTHESIA: None deployed. The right wrist was prepared in a sterile fashion. Drapes were applied. The right radial artery was palpated, cannulated easily and a guidewire was placed. A Cook catheter was inserted over the guidewire, and the guidewire was removed, good blood flow, good waveform. The line was secured using 3.0 silk sutures. No complications. MMODL / IJN: [id number] /
[2021-01-30 13:23] LABS: Anisocytosis Slight; HCT 26.8 % (34.0-46.0); HGB 8.7 gm/dL (11.4-16.0); Hypochromasia Moderate; MCH 31.6 pg (25.0-35.0); MCHC 32.4 g/dL (31.0-37.0); MCV 97.8 fL (80.0-100.0); Macrocytosis Slight; Mean Platelet Volume 7.2; Platelet Count 368 k/uL (150-450); RBC 2.74 m/uL (3.80-5.40); RDW 17.2 % (11.5-15.5)
--- NOTE | 2021-01-30 14:23 | CT ---
EXAMINATION TYPE: CT chest w con DATE OF EXAM: 01/30/2021 COMPARISON: None HISTORY: Right paratracheal hematoma CT DLP: 518.4 mGycm Automated exposure control for dose reduction was used. CONTRAST: Performed with IV Contrast, patient injected with 100 ml mL of Isovue 300. There is endotracheal tube. There is nasogastric tube with the tip probably in the stomach. The tip o f the catheter not included on the exam. There is bilateral lower lobe pulmonary airspace consolidation and atelectasis. Heart is enlarged. There are no hilar masses. There is normal opacification of the pulmonary arteries. I see no filling defect. The thoracic aorta is intact. There is no aneurysm or dissection. There is no mediastinal francine nopathy. There is slight widening of the superior mediastinum on the right side with some increased d ensity that could relate to mediastinal hematoma. This measures up to 12 mm in thickness adjacent to the superior vena cava. Thoracic spine is intact. Sternum is intact. IMPRESSION: Bilateral lower lobe airspace consolidation and atelectasis. Right paratracheal mediastinal density could relate to minimal hematoma.
--- NOTE | 2021-01-30 15:34 | P.PN ---
Subjective Patient is a pleasant 65-year-old the female was discharged from my service yesterday after she was treated for encephalopathy related to hypoglycemia. Patient had a cardiorespiratory arrest was pretty functional ambulate and go shopping at the time when she had a cardiorespiratory arrest, CPR was started and patient was later found to have went to her tachycardia, patient returned to sinus rhythm and 25 minutes subsequently was intubated and brought to emergency department. Patient did have history of ventricular tachycardia in the past pa tient was started on amiodarone at that time. Patient does have medical multiple medical problems including end-stage renal disease dialysis dependent chest x-ray showing significant infiltrate in the right lung mostly appears to be volume overload patient does have low-grade fever which can be secondary to cardiorespiratory arrest but patient was empirically started on Zosyn and patient is being admitted to ICU patient is presently intubated with FiO2 of 100% PEEP of 5 patient is breathing over the ventilator patient is on assist- control/volume controlled ventilation, on propofol patient does have conjunctival and corneal reflexes, does have gag reflex. No significant electrolyte abnormalities were appreciated. 01/29/2021 Patient is on ventilator support patient the doesn't have any significant response in after discontinue additional of sedation for about 4 hours. Patient was evaluated by multiple consultants including neurology patient had an EEG to assess for the brain function because of significant anoxic brain injury, patient has significant background slowing slowing encephalopathy. Patient still has brainstem reflexes that were described above. Patient had an echo Wh ich showed normal ejection fraction and grade 1 diastolic dysfunction. 01/30/2021 Patient was started back on propofol as patient is not tolerating ventilator patient remains on ventilatory support . Patient will undergo he hemodialysis tomorrow. Patient is on cisatracurium as well. Patient is undergoing repeat EEG to assess the brain function patient still has ranged stem reflexes at this time. Review of systems: Unable to obtain as patient is intubated All inpatient medications were reviewed and appropriate changes in these medications as dictated in the interval history and assessment and plan. Objective - Vital Signs Vital signs: Vital Signs Temp 98.2 F 01/30/21 12:00 Pulse 65 01/30/21 15:00 Resp 16 01/30/21 15:00 BP 137/61 01/30/21 15:00 Pulse Ox 98 01/30/21 15:00 Intake & Output 01/29/21 01/30/21 01/30/21 18:59 06:59 18:59 Intake Total 126.995 120 357.001 Output Total 30 10 10 Balance 96.995 110 347.001 Weight 103.4 kg Intake: IV 110 120 265 0.9 @ 10ml/hr 110 120 40 Piperacillin-Tazobactam 3 125 .375 gm In Sodium Chloride 0.9% 100 ml @ 25 mls/hr IVPB Q12HR [facility] Rx #:[id number] levETIRAcetam IV 500 mg 100 In Sodium Chloride 0.9% 100 ml @ 400 mls/hr IVPB Q12HR ELIF Rx#:[id number] Intake, IV Titration 16.995 0 92.001 Amount propofoL 1,000 mg In 16.995 0 92.001 Empty Bag 1 bag @ Titrate IV .Q0M ELIF Rx#: [id number] Output: Urine 30 10 10 ABP, PAP, CO, CI - Last Documented Arterial Blood Pressure 146/58 - Exam PHYSICAL EXAMINATION: GENERAL: Patient is intubated sedated, does have an NG tube with some bloody drainage from the NG tube. Patient has a central line and arterial line HEENT: Pupils are round and and constricted at this time because of propofol. EOMI. No scleral icterus. No conjunctival pallor. Normocephalic, atraumatic. No pharyngeal erythema. No thyromegaly. CARDIOVASCULAR: S1 and S2 present. No murmurs, rubs, or gallops. PULMONARY: Chest is clear to auscultation, no wheezing or crackles. ABDOMEN: Soft, nontender, nondistended, normoactive bowel sounds. No palpable organomegaly. MUSCULOSKELETAL: No joint swelling or deformity. EXTREMITIES: No cyanosis, clubbing, bilateral pedal edema which is actually better compared to yesterday when I discharged patient. NEUROLOGICAL: Intubated sedated but does have brainstem reflexes SKIN: Stage I and 2 ulcers which doesn't appear to be infected - Labs CBC & Chem 7: 01/30/21 13:10 01/30/21 04:02 Labs: Abnormal Lab Results - Last 24 Hours (Table) 01/29/21 01/30/21 01/30/21 Range/Units 19:25 00:07 04:02 WBC 11.9 H (3.8-10.6) k/uL RBC 2.75 L (3.80-5.40) m/uL Hgb 8.6 L (11.4-16.0) gm/dL Hct 26.4 L (34.0-46.0) % RDW 17.2 H (11.5-15.5) % Neutrophils # 8.6 H (1.3-7.7) k/uL Monocytes # 1.1 H (0-1.0) k/uL ABG pH (7.35-7.45) ABG pO2 (83-108) mmHg ABG HCO3 (21-25) mmol/L ABG Total CO2 (19-24) mmol/L ABG O2 Saturation (94-97) % Sodium (137-145) mmol/L Chloride (98-107) mmol/L BUN (7-17) mg/dL Creatinine (0.52-1.04) mg/dL Glucose (74-99) mg/dL POC Glucose (mg/dL) 186 H 172 H (75-99) mg/dL Calcium (8.4-10.2) mg/dL 01/30/21 01/30/21 01/30/21 Range/Units 04:02 05:13 05:53 WBC (3.8-10.6) k/uL RBC (3.80-5.40) m/uL Hgb (11.4-16.0) gm/dL Hct (34.0-46.0) % RDW (11.5-15.5) % Neutrophils # (1.3-7.7) k/uL Monocytes # (0-1.0) k/uL ABG pH 7.47 H (7.35-7.45) ABG pO2 123 H (83-108) mmHg ABG HCO3 30 H (21-25) mmol/L ABG Total CO2 32 H (19-24) mmol/L ABG O2 Saturation 99.0 H (94-97) % Sodium 132 L (137-145) mmol/L Chloride 96 L (98-107) mmol/L BUN 27 H (7-17) mg/dL Creatinine 4.63 H (0.52-1.04) mg/dL Glucose 126 H (74-99) mg/dL POC Glucose (mg/dL) 116 H (75-99) mg/dL Calcium 8.2 L (8.4-10.2) mg/dL 01/30/21 01/30/21 Range/Units 12:36 13:10 WBC 12.0 H (3.8-10.6) k/uL RBC 2.74 L (3.80-5.40) m/uL Hgb 8.7 L (11.4-16.0) gm/dL Hct 26.8 L (34.0-46.0) % RDW 17.2 H (11.5-15.5) % Neutrophils # (1.3-7.7) k/uL Monocytes # (0-1.0) k/uL ABG pH (7.35-7.45) ABG pO2 (83-108) mmHg ABG HCO3 (21-25) mmol/L ABG Total CO2 (19-24) mmol/L ABG O2 Saturation (94-97) % Sodium (137-145) mmol/L Chloride (98-107) mmol/L BUN (7-17) mg/dL Creatinine (0.52-1.04) mg/dL Glucose (74-99) mg/dL POC Glucose (mg/dL) 144 H (75-99) mg/dL Calcium (8.4-10.2) mg/dL Microbiology - Last 24 Hours (Table) 01/28/21 14:21 Gram Stain - Final Gastric Aspirate Sputum Culture - Final Assessment and Plan Plan: -Cardiorespiratory arrest leading to respiratory failure: Secondary to ventricular tachycardia patient was evaluated by cardiology echocardiogram as mentioned above . -Acute hypoxic respiratory failure leading to anoxic brain patient is undergoing repeat EEG but patient is presently on sedation as well as paralytic agents -Volume overload: Secondary to end-stage renal disease nephrology evaluated the patient. Hemodialysis tomorrow -Fever: Most probably secondary to cardiorespiratory arrest blood cultures will be obtained chest x-ray findings are more consistent with volume overload that pneumonia patient is on Zosyn -Recent covid 19 infection and month of October because of which I'm not repeating PCR for Covid -End-stage renal disease, dialysis dependent -Type 2 diabetes mellitus patient is on sliding scale will hold off on long- acting insulin history of DVT for which patient is on Eliquis -Hypertension -Diabetic peripheral neuropathy -bilateral lower extremity ulcers doesn't appear to have cellulitis but does have chronic lymphedema Patient prognosis is extremely poor
--- NOTE | 2021-01-30 17:03 | EEG ---
ELECTROENCEPHALOGRAM REPORT DATE OF SERVICE: 01/30/2021 This is a 65-year-old woman who presented to the emergency department after having a cardiac arrest and continues to have altered mental status. This video EEG is obtained to evaluate for seizure and epileptiform activity. Relevant medications: Patient is on IV propofol 30mcg/kg/min as well as is on Keppra. EEG TYPE: A routine 21 channel EEG is performed with video using the 10/20 electrode placement system. DESCRIPTION: The patient is intubated, on ventilator and on IV propofol drip. Wakefulness and drowsiness are obtained. During wakefulness, there is a posterior dominant rhythm of low to moderate voltage of 5.5-6.5 hertz activity. During drowsiness, there is slowing and attenuation of the background activity. There is no physiological stage 2 sleep. There is occasional [id number] voltage of intermittent semirhythmic to rhythmic delta activity over the bilateral frontal region (FIRDA). Otherwise, there is no focal slowing seen. Interictal and ictal are none. ACTIVATION PROCEDURE: Photic stimulation did not evoke a posterior driving response. There is no abnormality during the photic stimulation. Hyperventilation is not performed. CLINICAL INTERPRETATION: This is an abnormal routine EEG. The background slowing is suggestive of moderate encephalopathy. The bilateral frontal intermittent rhythmic delta activity (FIRDA) is due to toxic-metabolic disturbances or structural lesions. There are no focal slowing, epileptiform discharge or seizure on the EEG. Clinical correlation is recommended. On today's EEG, there is an improvement compared to the prior EEG (01/29/2021). MMODL / IJN: [id number] / TABATHA
[2021-01-30 17:40] LABS: Glucose,Whole Blood 158 mg/dL (75-99)
[2021-01-30] MEDS: amLODIPine 10 MG TAB PO SCH (19:46)
[2021-01-30 23:37] LABS: Glucose,Whole Blood 175 mg/dL (75-99)
[2021-01-31] MEDS: INSULIN ASPART (NovoLOG) 100 UNIT/ML VIAL SQ SCH ×5 (00:06→23:28)
--- NOTE | 2021-01-31 02:49 | CT ---
EXAM: CT Head Without Intravenous Contrast CLINICAL HISTORY: ITS.REASON CT Reason: altered mental status. Post cardiac arrest TECHNIQUE: Axial computed tomography images of the head/brain without intravenous contrast. CTDI is 49.1 mGy and DLP is 1168 mGy-cm. This CT exam was performed using one or more of the following dose reduction techniques: automated exposure control, adjustment of the mA and/or kV according to patient size, and/or use of iterative reconstruction technique. COMPARISON: 01/29/2021 FINDINGS: Brain: Unremarkable. No hemorrhage. No significant white matter disease. No edema. Ventricles: Unremarkable. No ventriculomegaly. Bones/joints: Unremarkable. No acute fracture. Soft tissues: Unremarkable. Partially visualized nasogastric tube. Sinuses: Unremarkable as visualized. No acute sinusitis. Mastoid air cells: Unremarkable as visualized. No mastoid effusion. IMPRESSION: No acute intracranial process.
--- NOTE | 2021-01-31 03:50 | XR ---
EXAMINATION TYPE: XR chest 1V portable DATE OF EXAM: 01/31/2021 Comparison: 01/30/2021 Clinical History: 65-year-old female Tube placement Findings: ET tube tip at or just below the level of the medial clavicular heads. NG tube courses below the diap hragm. Heart remains enlarged. Continued right paratracheal soft tissue prominence as noted on yester day's exam. Diffuse interstitial opacities persist. Heart remains enlarged. Interstitial densities ar e similar. Left basilar retrocardiac opacity persists. Impression: 1. Stable right paratracheal soft tissue density. 2. Stable cardiomegaly. Diffuse interstitial densities persist along with retrocardiac and left basil ar atelectasis or consolidation. 3. Satisfactory advancement of the NG tube.
[2021-01-31 05:23] LABS: Anisocytosis Slight; Basophils # (A) 0.1 k/uL (0-0.2); Basophils % (A) 1 %; Eosinophils # (A) 0.2 k/uL (0-0.7); Eosinophils % (A) 2 %; HCT 25.4 % (34.0-46.0); Hypochromasia Moderate; Lymphocytes % (A) 9 %; MCH 30.9 pg (25.0-35.0); MCHC 31.7 g/dL (31.0-37.0); MCV 97.4 fL (80.0-100.0); Macrocytosis Slight; Mean Platelet Volume 7.1; Monocytes # (A) 0.6 k/uL (0-1.0); Monocytes % (A) 6 %; Neutrophils # (A) 8.4 k/uL (1.3-7.7); Neutrophils % (A) 81 %; Platelet Count 328 k/uL (150-450); RBC 2.61 m/uL (3.80-5.40); RDW 17.2 % (11.5-15.5); WBC 10.3 k/uL (3.8-10.6)
[2021-01-31 05:44] LABS: Glucose,Whole Blood 179 mg/dL (75-99)
[2021-01-31] MEDS: CALCIUM ACETATE 667 MG TAB PO SCH ×2 (05:46→18:40)
[2021-01-31 05:51] LABS: Albumin 2.8 g/dL (3.5-5.0); Calcium 8.1 mg/dL (8.4-10.2); Potassium 4.4 mmol/L (3.5-5.1); Total Bilirubin 0.7 mg/dL (0.2-1.3); Total Protein 5.7 g/dL (6.3-8.2)
[2021-01-31 06:37] LABS: ABG Base Excess 1.8 mmol/L; ABG HCO3 27 mmol/L (21-25); ABG PCO2 44 mmHg (35-45); ABG PH 7.39 (7.35-7.45); ABG PO2 146 mmHg (83-108); ABG TCO2 28 mmol/L (19-24); Allen Test Performed? Yes
--- NOTE | 2021-01-31 07:49 | P.PN ---
Subjective Progress Note Date: 01/31/21 Principal diagnosis: Cardiopulmonary arrest This is a 65-year-old female patient with a past medical history significant for end stage renal disease on dialysis as well as history of ventricular tachycardia in the past as well as multiple comorbid conditions was admitted to the hospital with a cardiopulmonary arrest. The patient remains hemodynamically stable at this point. Unfortunately there is some concern regarding anoxic encephalopathy. She is getting workup from desmond t standpoint. The echo revealed normal LV function with mild aortic stenosis. Her EKG continues to show prolonged QT interval and currently she is not on any medication, post prolonged QT interval. Her cardiac arrest could be secondary to V. fib related to prolonged QT. Also severe underlying coronary artery disease needs to be ruled out if the patient return to have no evidence of anoxic encephalopathy. We will get more information in the next 24-48 hours. Objective - Vital Signs Vital signs: Vital Signs Temp 97.8 F 01/31/21 04:00 Pulse 49 L 01/31/21 07:00 Resp 14 01/31/21 07:00 BP 123/59 01/31/21 07:00 Pulse Ox 99 01/31/21 07:00 Intake & Output 01/30/21 01/31/21 01/31/21 18:59 06:59 18:59 Intake Total 581.049 808.938 30 Output Total 15 15 5 Balance 566.049 793.938 25 Weight 101.3 kg Intake: IV 295 280 10 0.9 @ 10ml/hr 70 80 10 Piperacillin-Tazobactam 3 125 100 .375 gm In Sodium Chloride 0.9% 100 ml @ 25 mls/hr IVPB Q12HR [facility] Rx #:[id number] levETIRAcetam IV 500 mg 100 100 In Sodium Chloride 0.9% 100 ml @ 400 mls/hr IVPB Q12HR [facility] Rx#:[id number] Intake, IV Titration 236.049 158.938 Amount propofoL 1,000 mg In 236.049 158.938 Empty Bag 1 bag @ Titrate IV .Q0M [facility] Rx#: [id number] Tube Feeding 20 220 20 Other 30 150 Output: Urine 15 15 5 Other: Voiding Method Indwelling Catheter ABP, PAP, CO, CI - Last Documented Arterial Blood Pressure 117/43 - Labs CBC & Chem 7: 01/31/21 04:05 01/31/21 04:05 Labs: Abnormal Lab Results - Last 24 Hours (Table) 01/30/21 01/30/21 01/30/21 Range/Units 12:36 13:10 17:38 WBC 12.0 H (3.8-10.6) k/uL RBC 2.74 L (3.80-5.40) m/uL Hgb 8.7 L (11.4-16.0) gm/dL Hct 26.8 L (34.0-46.0) % RDW 17.2 H (11.5-15.5) % Neutrophils # (1.3-7.7) k/uL ABG pO2 (83-108) mmHg ABG HCO3 (21-25) mmol/L ABG Total CO2 (19-24) mmol/L ABG O2 Saturation (94-97) % Sodium (137-145) mmol/L Chloride (98-107) mmol/L BUN (7-17) mg/dL Creatinine (0.52-1.04) mg/dL Glucose (74-99) mg/dL POC Glucose (mg/dL) 144 H 158 H (75-99) mg/dL Calcium (8.4-10.2) mg/dL Alkaline Phosphatase (38-126) U/L Total Protein (6.3-8.2) g/dL Albumin (3.5-5.0) g/dL 01/30/21 01/31/21 01/31/21 Range/Units 23:36 04:05 04:05 WBC (3.8-10.6) k/uL RBC 2.61 L (3.80-5.40) m/uL Hgb 8.0 L (11.4-16.0) gm/dL Hct 25.4 L (34.0-46.0) % RDW 17.2 H (11.5-15.5) % Neutrophils # 8.4 H (1.3-7.7) k/uL ABG pO2 (83-108) mmHg ABG HCO3 (21-25) mmol/L ABG Total CO2 (19-24) mmol/L ABG O2 Saturation (94-97) % Sodium 130 L (137-145) mmol/L Chloride 93 L (98-107) mmol/L BUN 33 H (7-17) mg/dL Creatinine 6.32 H (0.52-1.04) mg/dL Glucose 140 H (74-99) mg/dL POC Glucose (mg/dL) 175 H (75-99) mg/dL Calcium 8.1 L (8.4-10.2) mg/dL Alkaline Phosphatase 160 H (38-126) U/L Total Protein 5.7 L (6.3-8.2) g/dL Albumin 2.8 L (3.5-5.0) g/dL 01/31/21 01/31/21 Range/Units 05:42 06:32 WBC (3.8-10.6) k/uL RBC (3.80-5.40) m/uL Hgb (11.4-16.0) gm/dL Hct (34.0-46.0) % RDW (11.5-15.5) % Neutrophils # (1.3-7.7) k/uL ABG pO2 146 H (83-108) mmHg ABG HCO3 27 H (21-25) mmol/L ABG Total CO2 28 H (19-24) mmol/L ABG O2 Saturation 99.0 H (94-97) % Sodium (137-145) mmol/L Chloride (98-107) mmol/L BUN (7-17) mg/dL Creatinine (0.52-1.04) mg/dL Glucose (74-99) mg/dL POC Glucose (mg/dL) 179 H (75-99) mg/dL Calcium (8.4-10.2) mg/dL Alkaline Phosphatase (38-126) U/L Total Protein (6.3-8.2) g/dL Albumin (3.5-5.0) g/dL Microbiology - Last 24 Hours (Table) 01/28/21 14:21 Gram Stain - Final Gastric Aspirate Sputum Culture - Final Assessment and Plan Assessment: Assessment #1 cardiopulmonary arrest #2 prolonged QT #3 history of ventricular tachycardia #4 hypoxic respiratory failure #5 possible anoxic brain injury Plan #1 obtain more serial cardiac enzymes #2 continue monitoring the QT interval #3 avoid any medication, prolonged QT #4 follow-up with the patient #5 rule out severe ischemic etiology like coronary artery disease
[2021-01-31] MEDS: ALBUTEROL HFA INHALER INHALATION PRN ×4 (08:30→19:27)
[2021-01-31] MEDS: PIPERACILLIN-TAZOBACTAM 3.375 GM in SODIUM CHLORIDE 0.9% 100 ML IVPB SCH ×2 (09:02→20:38)
[2021-01-31] MEDS: ZINC SULFATE 220 MG CAP PO SCH ×2 (09:03→19:46)
[2021-01-31] MEDS: CHLORHEXIDINE GLUCONATE 15 ML CUP MUCOUS MEM SCH ×2 (09:03→19:45)
[2021-01-31] MEDS: APIXABAN 2.5 MG TABLET PO SCH ×2 (09:03→19:45)
[2021-01-31] MEDS: PANTOPRAZOLE 40 MG/10 ML VIAL IVP SCH ×2 (09:03→19:46)
[2021-01-31] MEDS: ASPIRIN 81 MG PO SCH (09:03)
[2021-01-31] MEDS: levETIRAcetam IV 500 MG in SODIUM CHLORIDE 0.9% 100 ML IVPB SCH ×2 (09:03→19:42)
[2021-01-31 11:56] LABS: Glucose,Whole Blood 121 mg/dL (75-99)
[2021-01-31] MEDS: levETIRAcetam 500 MG TAB PO SCH (12:35)
--- NOTE | 2021-01-31 14:18 | P.PN ---
Subjective Progress Note Date: 01/31/21 Principal diagnosis: Cardiac arrest and anoxic brain injury This is a 65-year-old female with history of multiple medical problems, known to have end-stage renal disease, on hemodialysis, type 2 diabetes, coronary artery disease, cardiogenic in the form of ventricular tachycardia, patient had had hemodialysis yesterday, and she went home felt nauseated, while at home the patient had a sudden cardiac arrest at 1310. Family initiated CPR according to EMS, fire department arrived to the scene and found the patient to be unresponsive, in ventricular fibrillation. She was defibrillated, and CPR was continued. Patient received epinephrine, and after the second the defibrill ation, there was return of spontaneous circulation. Down time was in the range of 20 minutes. Patient was brought into the emergency room, kept on mechanical ventilation, she was hemodynamically stable not requiring any pressors. Transferred to the ICU, and I was asked to see her on consultation. The major concern at this point is the fact that the patient had a prolonged downtime, and she most likely sustained anoxic brain injury. Hence a neurological consultation was initiated on this patient. I discontinued all her sedation and we will arrange for neurological consultation. Ventilator oreilly the patient is on assist control rate of 14, volume 350 FiO2 went down from 60% to 45%, ABG s howed a pO2 of 130 pCO2 of 36 pH of 7.52. All this information was obtained from the chart, no family members available at bedside Patient was reevaluated today on 01/30/2021, remains in the ICU, intubated and mechanically ventilated. Her ventilator settings are assist control rate of 14 tidal volume of 350 FiO2 is 50% PEEP of 5. Patient remains on propofol at 30 mcg/kg/m, remains on antibiotics for her cellulitis she is on Zosyn. Patient is only withdrawing to painful stimuli, but no purposeful movement. She was seen by neurology on consultation, and neurology feels that the patient has anoxic brain injury from prolonged cardiac arrest along with metabolic encephalopathy. In addition to all of this she has underlying covid 19 pneumonia. In addition to this, the patient has history of end-stage renal disease on hemodialysis, she also had history of DVT maintained on all across, and history of peripheral neuropathy. Labs today showed a pO2 of 123 pCO2 of 42 pH of 7.47 her WBC count is 11.9 hemoglobin is 8.6. BUN is 27 creatinine is 4.63. On 01/31/2002, patient's follow-up in the intensive care unit, she remains intubated, sedated, currently on assist control with a rate of 14, tidal volumes 350, FiO2 of 50%, and PEEP of 5, this morning's blood gases show pO2 146, pCO2 44, and pH of 7.39 and subsequently FiO2 was dropped down to 40%, currently on 0.9 ns at 10 ML per hour, Diprivan is at 20 mics per kilo per minute, no other drips, nutritional support in the form of vital high protein at 30, with a goal of 39. Patient is currently receiving hemodialysis treatment, patient is a chronic hemodialysis patient on the Sunday schedule. Patient apparently failed daily interruption of sedation, has not been following purposeful commands, she is only withdrawing to painful stimuli, there is no purposeful movement. Patient has been seen in consultation by neurology and followed by neurology and there is a possibility of anoxic brain injury from prolonged cardiac arrest along with metabolic encephalopathy. Patient tested positive for COVID 19 this admission. Chest x-ray today shows diffuse interstitial densities. Brain CT showed no acute intracranial process. EEG on 2020 showed background slowing suggestive of moderate encephalopathy, with no focal slowing, epileptiform discharge or seizures. Patient is receiving Keppra. Patient is on empiric antibiotics in the form of Zosyn. She is on Eliquis at 2.5 mg twice daily previous history of DVT, and possible paroxysmal A. fib. Cardiology is following in regards to V. fib arrest, there has been no further arrhythmias overnight Objective - Vital Signs Vital signs: Vital Signs Temp 97.8 F 01/31/21 13:19 Pulse 56 L 01/31/21 13:19 Resp 16 01/31/21 13:19 BP 141/53 01/31/21 13:19 Pulse Ox 95 01/31/21 13:00 Intake & Output 01/30/21 01/31/21 01/31/21 18:59 06:59 18:59 Intake Total 581.049 808.938 530 Output Total 15 15 1005 Balance 566.049 793.938 -475 Weight 101.3 kg Intake: IV 295 280 270 0.9 @ 10ml/hr 70 80 70 Piperacillin-Tazobactam 3 125 100 100 .375 gm In Sodium Chloride 0.9% 100 ml @ 25 mls/hr IVPB Q12HR [facility] Rx #:[id number] levETIRAcetam IV 500 mg 100 100 100 In Sodium Chloride 0.9% 100 ml @ 400 mls/hr IVPB Q12HR [facility] Rx#:[id number] Intake, IV Titration 236.049 158.938 Amount propofoL 1,000 mg In 236.049 158.938 Empty Bag 1 bag @ Titrate IV .Q0M [facility] Rx#: [id number] Tube Feeding 20 220 200 Other 30 150 60 Output: Urine 15 15 5 Hemodialysis 1000 Other: Voiding Method Indwelling Catheter Indwelling Catheter ABP, PAP, CO, CI - Last Documented Arterial Blood Pressure 136/52 - Exam GENERAL EXAM: Sedated, intubated, 65-year-old obese black female comfortable in no apparent distress. HEAD: Normocephalic/atraumatic. EYES: Normal reaction of pupils, equal size. Conjunctiva pink, sclera white. NOSE: Clear with pink turbinates. THROAT: No erythema or exudates. NECK: No masses, no JVD, no thyroid enlargement, no adenopathy. CHEST: No chest wall deformity. Symmetrical expansion. LUNGS: Equal air entry with no crackles, wheeze, rhonchi or dullness. CVS: Regular rate and rhythm, normal S1 and S2, no gallops, no murmurs, no rubs ABDOMEN: Soft, nontender. No hepatosplenomegaly, normal bowel sounds, no guarding or rigidity. EXTREMITIES: No clubbing, no edema, no cyanosis, 2+ pulses and upper and lower extremities. MUSCULOSKELETAL: Muscle strength and tone normal. SPINE: No scoliosis or deformity SKIN: No rashes CENTRAL NERVOUS SYSTEM: Sedated, intubated No focal deficits, tone is normal in all 4 extremities. - Labs CBC & Chem 7: 01/31/21 04:05 01/31/21 04:05 Labs: Abnormal Lab Results - Last 24 Hours (Table) 01/30/21 01/30/21 01/31/21 Range/Units 17:38 23:36 04:05 RBC 2.61 L (3.80-5.40) m/uL Hgb 8.0 L (11.4-16.0) gm/dL Hct 25.4 L (34.0-46.0) % RDW 17.2 H (11.5-15.5) % Neutrophils # 8.4 H (1.3-7.7) k/uL ABG pO2 (83-108) mmHg ABG HCO3 (21-25) mmol/L ABG Total CO2 (19-24) mmol/L ABG O2 Saturation (94-97) % Sodium (137-145) mmol/L Chloride (98-107) mmol/L BUN (7-17) mg/dL Creatinine (0.52-1.04) mg/dL Glucose (74-99) mg/dL POC Glucose (mg/dL) 158 H 175 H (75-99) mg/dL Calcium (8.4-10.2) mg/dL Alkaline Phosphatase (38-126) U/L Total Protein (6.3-8.2) g/dL Albumin (3.5-5.0) g/dL 01/31/21 01/31/21 01/31/21 Range/Units 04:05 05:42 06:32 RBC (3.80-5.40) m/uL Hgb (11.4-16.0) gm/dL Hct (34.0-46.0) % RDW (11.5-15.5) % Neutrophils # (1.3-7.7) k/uL ABG pO2 146 H (83-108) mmHg ABG HCO3 27 H (21-25) mmol/L ABG Total CO2 28 H (19-24) mmol/L ABG O2 Saturation 99.0 H (94-97) % Sodium 130 L (137-145) mmol/L Chloride 93 L (98-107) mmol/L BUN 33 H (7-17) mg/dL Creatinine 6.32 H (0.52-1.04) mg/dL Glucose 140 H (74-99) mg/dL POC Glucose (mg/dL) 179 H (75-99) mg/dL Calcium 8.1 L (8.4-10.2) mg/dL Alkaline Phosphatase 160 H (38-126) U/L Total Protein 5.7 L (6.3-8.2) g/dL Albumin 2.8 L (3.5-5.0) g/dL 01/31/21 Range/Units 11:55 RBC (3.80-5.40) m/uL Hgb (11.4-16.0) gm/dL Hct (34.0-46.0) % RDW (11.5-15.5) % Neutrophils # (1.3-7.7) k/uL ABG pO2 (83-108) mmHg ABG HCO3 (21-25) mmol/L ABG Total CO2 (19-24) mmol/L ABG O2 Saturation (94-97) % Sodium (137-145) mmol/L Chloride (98-107) mmol/L BUN (7-17) mg/dL Creatinine (0.52-1.04) mg/dL Glucose (74-99) mg/dL POC Glucose (mg/dL) 121 H (75-99) mg/dL Calcium (8.4-10.2) mg/dL Alkaline Phosphatase (38-126) U/L Total Protein (6.3-8.2) g/dL Albumin (3.5-5.0) g/dL Microbiology - Last 24 Hours (Table) 01/28/21 14:21 Gram Stain - Final Gastric Aspirate Sputum Culture - Final Assessment and Plan Plan: Cardiac arrest most likely secondary to cardiac arrhythmia initial rhythm was ventricular fibrillation upon EMS arrival. Acute hypoxic respiratory failure secondary to above. Bilateral interstitial edema most likely secondary to end-stage renal disease and suspect acute systolic congestive heart failure, likely ischemic in nature. Cardiac workup is pending. Strongly suspect anoxic brain injury and metabolic encephalopathy secondary to cardiac arrest. Type 2 diabetes. Benign essential hypertension. end stage renal disease on hemodialysis. History of carotid artery disease. History of DVT been maintained on all across. History of diabetic peripheral neuropathy. History of cardiac arrhythmia requiring cardiac ablation. Chronic lymphedema and cellulitis of both lower extremities. History of irritable bowel syndrome. History of covid 19 infection in October of 2020 Possible right paratracheal hematoma from attempted central line placement, CT of the chest was ordered. Plan: Discussed case with neurology, feels that there is some improvement in the repeat EEG, will continue with supportive care, continue sedation, Keppra, ventilator support. Vital signs have been stable, hemodynamically stable, no acute events overnight, no recurrence of arrhythmias. Continue nutritional support. Continue oral anticoagulation, and steroids. Continue to follow a chest x-ray follow-up labs I performed a history & physical examination of the patient and discussed their management with my nurse practitioner, Maryann Louis. I reviewed the nurse practitioner's note and agree with the documented findings and plan of care. Lung sounds are positive for diminished breath sounds. The findings and the impression was discussed with the patient. I attest to the documentation by the nurse practitioner. Time with Patient: Greater than 30
--- NOTE | 2021-01-31 14:23 | PN ---
PROGRESS NOTE Patient is seen for followup for end-stage renal disease. The patient is currently on the vent. She is being dialyzed. Case is discussed with dialysis staff as well as the ICU staff and acid mixer. Blood pressure has been borderline with systolic around 100 to 109 mmHg. We are trying for about 1 L of ultrafiltration. Heart rate has been about 56 to 45 per minute. Patient is afebrile. No significant edema according to nursing staff. Patient is tolerating tube feeds. LABS: Labs show hemoglobin 8.0, sodium 130, potassium 4.4, BUN 33, creatinine 6.32. ASSESSMENT: 1. End-stage renal disease, on hemodialysis on a Sunday, Sunday, Sunday schedule. 2. COVID-19 pneumonia, currently on the vent. 3. Status post cardiopulmonary arrest. 4. Encephalopathy, most likely anoxic. 5. Chronic kidney disease mineral bone disorder. PLAN: Hemodialysis today. Goal UF of about 1 L depending on the blood pressure. ICU management. Continue antibiotics. MMODL / IJN: [id number] /
--- NOTE | 2021-01-31 16:14 | P.PN ---
Subjective Patient is a pleasant 65-year-old the female was discharged from my service yesterday after she was treated for encephalopathy related to hypoglycemia. Patient had a cardiorespiratory arrest was pretty functional ambulate and go shopping at the time when she had a cardiorespiratory arrest, CPR was started and patient was later found to have went to her tachycardia, patient returned to sinus rhythm and 25 minutes subsequently was intubated and brought to emergency department. Patient did have history of ventricular tachycardia in the past pa tient was started on amiodarone at that time. Patient does have medical multiple medical problems including end-stage renal disease dialysis dependent chest x-ray showing significant infiltrate in the right lung mostly appears to be volume overload patient does have low-grade fever which can be secondary to cardiorespiratory arrest but patient was empirically started on Zosyn and patient is being admitted to ICU patient is presently intubated with FiO2 of 100% PEEP of 5 patient is breathing over the ventilator patient is on assist- control/volume controlled ventilation, on propofol patient does have conjunctival and corneal reflexes, does have gag reflex. No significant electrolyte abnormalities were appreciated. 01/29/2021 Patient is on ventilator support patient the doesn't have any significant response in after discontinue additional of sedation for about 4 hours. Patient was evaluated by multiple consultants including neurology patient had an EEG to assess for the brain function because of significant anoxic brain injury, patient has significant background slowing slowing encephalopathy. Patient still has brainstem reflexes that were described above. Patient had an echo Wh ich showed normal ejection fraction and grade 1 diastolic dysfunction. 01/30/2021 Patient was started back on propofol as patient is not tolerating ventilator patient remains on ventilatory support . Patient will undergo he hemodialysis tomorrow. Patient is on cisatracurium as well. Patient is undergoing repeat EEG to assess the brain function patient still has ranged stem reflexes at this time. 01/31/2021 Patient remains in intensity and neck done ventilatory support. Patient had a repeat EEG which she appeared to be bit better. Patient does have corneal reflex but doesn't have any conjunctival reflux, patient does have cough reflex biting on the ventilator. Patient remains on the propofol drip and patient neurological assessment it to be done off sedation although patient doesn't appear to be tolerating off sedation. Patient had dialysis today. Review of systems: Unable to obtain as patient is intubated All inpatient medications were reviewed and appropriate changes in these medications as dictated in the interval history and assessment and plan. Objective - Vital Signs Vital signs: Vital Signs Temp 97.8 F 01/31/21 13:19 Pulse 56 L 01/31/21 13:19 Resp 16 01/31/21 13:19 BP 141/53 01/31/21 13:19 Pulse Ox 95 01/31/21 13:00 Intake & Output 01/30/21 01/31/21 01/31/21 18:59 06:59 18:59 Intake Total 581.049 808.938 530 Output Total 15 15 1005 Balance 566.049 793.938 -475 Weight 101.3 kg Intake: IV 295 280 270 0.9 @ 10ml/hr 70 80 70 Piperacillin-Tazobactam 3 125 100 100 .375 gm In Sodium Chloride 0.9% 100 ml @ 25 mls/hr IVPB Q12HR [facility] Rx #:[id number] levETIRAcetam IV 500 mg 100 100 100 In Sodium Chloride 0.9% 100 ml @ 400 mls/hr IVPB Q12HR [facility] Rx#:[id number] Intake, IV Titration 236.049 158.938 Amount propofoL 1,000 mg In 236.049 158.938 Empty Bag 1 bag @ Titrate IV .Q0M [facility] Rx#: [id number] Tube Feeding 20 220 200 Other 30 150 60 Output: Urine 15 15 5 Hemodialysis 1000 Other: Voiding Method Indwelling Catheter Indwelling Catheter ABP, PAP, CO, CI - Last Documented Arterial Blood Pressure 136/52 - Exam PHYSICAL EXAMINATION: GENERAL: Patient is intubated sedated, does have an NG tube with some bloody drainage from the NG tube. Patient has a central line and arterial line HEENT: Pupils are round and and constricted at this time because of propofol. EOMI. No scleral icterus. No conjunctival pallor. Normocephalic, atraumatic. No pharyngeal erythema. No thyromegaly. CARDIOVASCULAR: S1 and S2 present. No murmurs, rubs, or gallops. PULMONARY: Chest is clear to auscultation, no wheezing or crackles. ABDOMEN: Soft, nontender, nondistended, normoactive bowel sounds. No palpable organomegaly. MUSCULOSKELETAL: No joint swelling or deformity. EXTREMITIES: No cyanosis, clubbing, bilateral pedal edema which is actually better compared to yesterday when I discharged patient. NEUROLOGICAL: Intubated sedated but does have brainstem reflexes SKIN: Stage I and 2 ulcers which doesn't appear to be infected - Labs CBC & Chem 7: 01/31/21 04:05 01/31/21 04:05 Labs: Abnormal Lab Results - Last 24 Hours (Table) 01/30/21 01/30/21 01/31/21 Range/Units 17:38 23:36 04:05 RBC 2.61 L (3.80-5.40) m/uL Hgb 8.0 L (11.4-16.0) gm/dL Hct 25.4 L (34.0-46.0) % RDW 17.2 H (11.5-15.5) % Neutrophils # 8.4 H (1.3-7.7) k/uL ABG pO2 (83-108) mmHg ABG HCO3 (21-25) mmol/L ABG Total CO2 (19-24) mmol/L ABG O2 Saturation (94-97) % Sodium (137-145) mmol/L Chloride (98-107) mmol/L BUN (7-17) mg/dL Creatinine (0.52-1.04) mg/dL Glucose (74-99) mg/dL POC Glucose (mg/dL) 158 H 175 H (75-99) mg/dL Calcium (8.4-10.2) mg/dL Alkaline Phosphatase (38-126) U/L Troponin I (0.000-0.034) ng/mL Total Protein (6.3-8.2) g/dL Albumin (3.5-5.0) g/dL 01/31/21 01/31/21 01/31/21 Range/Units 04:05 05:42 06:32 RBC (3.80-5.40) m/uL Hgb (11.4-16.0) gm/dL Hct (34.0-46.0) % RDW (11.5-15.5) % Neutrophils # (1.3-7.7) k/uL ABG pO2 146 H (83-108) mmHg ABG HCO3 27 H (21-25) mmol/L ABG Total CO2 28 H (19-24) mmol/L ABG O2 Saturation 99.0 H (94-97) % Sodium 130 L (137-145) mmol/L Chloride 93 L (98-107) mmol/L BUN 33 H (7-17) mg/dL Creatinine 6.32 H (0.52-1.04) mg/dL Glucose 140 H (74-99) mg/dL POC Glucose (mg/dL) 179 H (75-99) mg/dL Calcium 8.1 L (8.4-10.2) mg/dL Alkaline Phosphatase 160 H (38-126) U/L Troponin I (0.000-0.034) ng/mL Total Protein 5.7 L (6.3-8.2) g/dL Albumin 2.8 L (3.5-5.0) g/dL 01/31/21 01/31/21 Range/Units 11:55 13:50 RBC (3.80-5.40) m/uL Hgb (11.4-16.0) gm/dL Hct (34.0-46.0) % RDW (11.5-15.5) % Neutrophils # (1.3-7.7) k/uL ABG pO2 (83-108) mmHg ABG HCO3 (21-25) mmol/L ABG Total CO2 (19-24) mmol/L ABG O2 Saturation (94-97) % Sodium (137-145) mmol/L Chloride (98-107) mmol/L BUN (7-17) mg/dL Creatinine (0.52-1.04) mg/dL Glucose (74-99) mg/dL POC Glucose (mg/dL) 121 H (75-99) mg/dL Calcium (8.4-10.2) mg/dL Alkaline Phosphatase (38-126) U/L Troponin I 0.111 H* (0.000-0.034) ng/mL Total Protein (6.3-8.2) g/dL Albumin (3.5-5.0) g/dL Assessment and Plan Plan: -Cardiorespiratory arrest leading to respiratory failure: Secondary to ventricular tachycardia patient was evaluated by cardiology echocardiogram as mentioned above . Repeat EEG showed some improvement in background slowing. Difficult to prognosticate neurological he because patient can use to be on sedation -Acute hypoxic respiratory failure leading to anoxic brain patient is undergoing repeat EEG but patient is presently on sedation. -Volume overload: Secondary to end-stage renal disease nephrology evaluated the patient. Hemodialysis today -Fever: Most probably secondary to cardiorespiratory arrest blood cultures will be obtained chest x-ray findings are more consistent with volume overload that pneumonia patient is on Zosyn -Recent covid 19 infection and month of October because of which I'm not repeating PCR for Covid -End-stage renal disease, dialysis dependent -Type 2 diabetes mellitus patient is on sliding scale will hold off on long- acting insulin history of DVT for which patient is on Eliquis -Hypertension -Diabetic peripheral neuropathy -bilateral lower extremity ulcers doesn't appear to have cellulitis but does have chronic lymphedema Patient prognosis is extremely poor
--- NOTE | 2021-01-31 17:16 | P.PN ---
Subjective Progress Note Date: 01/31/21 Patient is a 65-year-old female came to the hospital on 01/28/2021 at 2:07 PM after a cardiac arrest with the downtime of 25 minutes. Patient had undergone hemodialysis in the morning, then for errands with her , came back home and had mentioned that she was not feeling well, vomited before she collapsed and had cardiac arrest. Patient's family started CPR before EMS arrived. Patient was shocked twice, appendectomy was given once and was intubated. Patient currently on propofol 20 g. Patient was initially seen by Dr. Lenny Fernandez. Please refer to his note for details. Patient has developed encephalopathy probably multifactorial due to anoxic brain injury from prolonged cardiac arrest, component of metabolic encephalopathy with uncontrolled diabetes, hypotension, underlying pneumonia from Covid. Patient also has history of end-stage renal disease on hemodialysis. Patient had an EEG performed yesterday, which revealed background slowing suggestive of moderate encephalopathy. The bilateral frontal intermittent rhythmic delta activity is due to toxic metabolic disturbance or structural lesion. No epileptiform activity was seen. Patient's background has improved as compared to the EEG from the day prior for 01/15/2021. Patient's blood test shows WBC 10.3 hemoglobin 8.0, platelets 328. Sodium 130 potassium 4.4, BUN 33, creatinine 6.32. Hepatic panel normal. CT head from 01/31/2021 shows no acute process. Per nursing report, when sedation is decreased, patient starts biting on the ET tube and her breathing becomes fast. CT head reported as no acute process per radiology report from 01/31/2021. Although on my review, there is evidence of generalized cerebral edema, somewhat with effacement of the sulci as compared to the computed tomography scan from 01/29/2021. Objective - Vital Signs Vital signs: Vital Signs Temp 97.8 F 01/31/21 13:19 Pulse 56 L 01/31/21 13:19 Resp 16 01/31/21 13:19 BP 141/53 01/31/21 13:19 Pulse Ox 95 01/31/21 13:00 Intake & Output 01/30/21 01/31/21 01/31/21 18:59 06:59 18:59 Intake Total 581.049 808.938 530 Output Total 15 15 1005 Balance 566.049 793.938 -475 Weight 101.3 kg Intake: IV 295 280 270 0.9 @ 10ml/hr 70 80 70 Piperacillin-Tazobactam 3 125 100 100 .375 gm In Sodium Chloride 0.9% 100 ml @ 25 mls/hr IVPB Q12HR EL[facility] Rx #:[id number] levETIRAcetam IV 500 mg 100 100 100 In Sodium Chloride 0.9% 100 ml @ 400 mls/hr IVPB Q12HR ELIF Rx#:[id number] Intake, IV Titration 236.049 158.938 Amount propofoL 1,000 mg In 236.049 158.938 Empty Bag 1 bag @ Titrate IV .Q0M ELIF Rx#: [id number] Tube Feeding 20 220 200 Other 30 150 60 Output: Urine 15 15 5 Hemodialysis 1000 Other: Voiding Method Indwelling Catheter Indwelling Catheter ABP, PAP, CO, CI - Last Documented Arterial Blood Pressure 136/52 - Exam On examination patient is an elderly female, who is unresponsive, comatose. Patient is on Daypro and 20 g as well. Her pupils are equal, not clearly reacting. Oculocephalics are absent. Corneals are present. No obvious seizure activity noted. Patient has peripheral edema. Reflexes are diminished and plantars are flat. Patient does have a gag reflex. - Labs CBC & Chem 7: 01/31/21 04:05 01/31/21 04:05 Labs: Abnormal Lab Results - Last 24 Hours (Table) 01/30/21 01/30/21 01/31/21 Range/Units 17:38 23:36 04:05 RBC 2.61 L (3.80-5.40) m/uL Hgb 8.0 L (11.4-16.0) gm/dL Hct 25.4 L (34.0-46.0) % RDW 17.2 H (11.5-15.5) % Neutrophils # 8.4 H (1.3-7.7) k/uL ABG pO2 (83-108) mmHg ABG HCO3 (21-25) mmol/L ABG Total CO2 (19-24) mmol/L ABG O2 Saturation (94-97) % Sodium (137-145) mmol/L Chloride (98-107) mmol/L BUN (7-17) mg/dL Creatinine (0.52-1.04) mg/dL Glucose (74-99) mg/dL POC Glucose (mg/dL) 158 H 175 H (75-99) mg/dL Calcium (8.4-10.2) mg/dL Alkaline Phosphatase (38-126) U/L Total Protein (6.3-8.2) g/dL Albumin (3.5-5.0) g/dL 01/31/21 01/31/21 01/31/21 Range/Units 04:05 05:42 06:32 RBC (3.80-5.40) m/uL Hgb (11.4-16.0) gm/dL Hct (34.0-46.0) % RDW (11.5-15.5) % Neutrophils # (1.3-7.7) k/uL ABG pO2 146 H (83-108) mmHg ABG HCO3 27 H (21-25) mmol/L ABG Total CO2 28 H (19-24) mmol/L ABG O2 Saturation 99.0 H (94-97) % Sodium 130 L (137-145) mmol/L Chloride 93 L (98-107) mmol/L BUN 33 H (7-17) mg/dL Creatinine 6.32 H (0.52-1.04) mg/dL Glucose 140 H (74-99) mg/dL POC Glucose (mg/dL) 179 H (75-99) mg/dL Calcium 8.1 L (8.4-10.2) mg/dL Alkaline Phosphatase 160 H (38-126) U/L Total Protein 5.7 L (6.3-8.2) g/dL Albumin 2.8 L (3.5-5.0) g/dL 01/31/21 Range/Units 11:55 RBC (3.80-5.40) m/uL Hgb (11.4-16.0) gm/dL Hct (34.0-46.0) % RDW (11.5-15.5) % Neutrophils # (1.3-7.7) k/uL ABG pO2 (83-108) mmHg ABG HCO3 (21-25) mmol/L ABG Total CO2 (19-24) mmol/L ABG O2 Saturation (94-97) % Sodium (137-145) mmol/L Chloride (98-107) mmol/L BUN (7-17) mg/dL Creatinine (0.52-1.04) mg/dL Glucose (74-99) mg/dL POC Glucose (mg/dL) 121 H (75-99) mg/dL Calcium (8.4-10.2) mg/dL Alkaline Phosphatase (38-126) U/L Total Protein (6.3-8.2) g/dL Albumin (3.5-5.0) g/dL Microbiology - Last 24 Hours (Table) 01/28/21 14:21 Gram Stain - Final Gastric Aspirate Sputum Culture - Final Assessment and Plan Assessment: * Status post cardiac arrest with anoxic encephalopathy. * Probable superimposed component of metabolic encephalopathy. * End-stage renal disease on hemodialysis. * Acute Covid-19 related pneumonia. Plan: * Patient clinically is no better 72 hours post cardiac arrest. No significant clinical improvement. * Patient computed tomography scan of the head from today shows mild generalized cerebral edema, with slight effacement of the sulci, as per my review, although the radiologist reported normal. * Prognosis appears very guarded at this time based upon lack of significant cli nical improvement. * Repeat EEG in a.m without sedation. * Discussed with family in detail, spent 17 minutes on the phone counseling and answering questions. Time with Patient: Greater than 30
[2021-01-31 17:28] LABS: Glucose,Whole Blood 169 mg/dL (75-99)
[2021-01-31] MEDS: amLODIPine 10 MG TAB PO SCH (19:45)
[2021-01-31 23:23] LABS: Glucose,Whole Blood 210 mg/dL (75-99)
[2021-02-01 04:36] LABS: Anisocytosis Slight; Basophils % (A) 1 %; Eosinophils # (A) 0.2 k/uL (0-0.7); Eosinophils % (A) 3 %; HCT 27.3 % (34.0-46.0); HGB 8.5 gm/dL (11.4-16.0); Hypochromasia Marked; Lymphocytes # (A) 0.9 k/uL (1.0-4.8); Lymphocytes % (A) 10 %; MCH 30.6 pg (25.0-35.0); MCV 98.5 fL (80.0-100.0); Macrocytosis Slight; Mean Platelet Volume 7.7; Monocytes # (A) 0.5 k/uL (0-1.0); Monocytes % (A) 5 %; Neutrophils # (A) 7.6 k/uL (1.3-7.7); Neutrophils % (A) 81 %; Platelet Count 305 k/uL (150-450); RBC 2.78 m/uL (3.80-5.40); RDW 17.2 % (11.5-15.5); WBC 9.4 k/uL (3.8-10.6)
[2021-02-01 05:00] LABS: Albumin 2.8 g/dL (3.5-5.0); Potassium 4.2 mmol/L (3.5-5.1); Total Bilirubin 0.6 mg/dL (0.2-1.3); Total Protein 5.9 g/dL (6.3-8.2)
[2021-02-01 05:17] LABS: ABG Base Excess 3.8 mmol/L; ABG HCO3 28 mmol/L (21-25); ABG Oxygen Saturation 97.4 % (94-97); ABG PCO2 43 mmHg (35-45); ABG PH 7.43 (7.35-7.45); ABG PO2 85 mmHg (83-108); ABG TCO2 30 mmol/L (19-24); Allen Test Performed? Yes
[2021-02-01 05:27] LABS: Glucose,Whole Blood 196 mg/dL (75-99)
[2021-02-01] MEDS: CALCIUM ACETATE 667 MG TAB PO SCH ×2 (05:29→17:31)
[2021-02-01] MEDS: INSULIN ASPART (NovoLOG) 100 UNIT/ML VIAL SQ SCH ×3 (05:29→17:31)
[2021-02-01] MEDS: ALBUTEROL HFA INHALER INHALATION PRN ×3 (07:16→15:19)
[2021-02-01] MEDS: levETIRAcetam IV 500 MG in SODIUM CHLORIDE 0.9% 100 ML IVPB SCH ×2 (08:07→20:04)
[2021-02-01] MEDS: PIPERACILLIN-TAZOBACTAM 3.375 GM in SODIUM CHLORIDE 0.9% 100 ML IVPB SCH ×2 (08:08→20:03)
[2021-02-01] MEDS: APIXABAN 2.5 MG TABLET PO SCH ×2 (08:08→20:03)
[2021-02-01] MEDS: CHLORHEXIDINE GLUCONATE 15 ML CUP MUCOUS MEM SCH ×2 (08:08→20:50)
[2021-02-01] MEDS: ZINC SULFATE 220 MG CAP PO SCH ×2 (08:08→20:03)
[2021-02-01] MEDS: ASPIRIN 81 MG PO SCH (08:08)
[2021-02-01] MEDS: PANTOPRAZOLE 40 MG/10 ML VIAL IVP SCH ×2 (08:08→20:03)
--- NOTE | 2021-02-01 09:15 | P.PN ---
Subjective Progress Note Date: 02/01/21 Principal diagnosis: Cardiopulmonary arrest This is a 65-year-old female patient with a past medical history significant for end stage renal disease on dialysis as well as history of ventricular tachycardia in the past as well as multiple comorbid conditions was admitted to the hospital with a cardiopulmonary arrest. The patient was seen today. She is hemodynamically stable. Unfortunately there is some concern regarding anoxic encephalopathy and that is working up high the neurology service. Also there is some concern regarding prolonged QT interval B the QT interval appears to be borderline. At this point we'll continue with the current medical regimen and continue the follow-up regarding ruling out anoxic encephalopathy. The patient currently is not on any medication that can cause prolonged QT. Her cardiopulmonary arrest could be secondary to V. fib or V. t ach on underlying prolonged QT interval and also severe underlying coronary artery disease to be ruled out. Objective - Vital Signs Vital signs: Vital Signs Temp 97.8 F 02/01/21 04:00 Pulse 62 02/01/21 07:00 Resp 16 02/01/21 07:00 BP 131/65 02/01/21 05:00 Pulse Ox 98 02/01/21 07:00 Intake & Output 01/31/21 02/01/21 02/01/21 18:59 06:59 18:59 Intake Total 878 1053.972 94.289 Output Total 1015 0 0 Balance -137 1053.972 94.289 Weight 103.6 kg Intake: IV 320 290 10 0.9 @ 10ml/hr 120 90 10 Piperacillin-Tazobactam 3 100 100 .375 gm In Sodium Chloride 0.9% 100 ml @ 25 mls/hr IVPB Q12HR EL[facility] Rx #:[id number] levETIRAcetam IV 500 mg 100 100 In Sodium Chloride 0.9% 100 ml @ 400 mls/hr IVPB Q12HR ELIF Rx#:[id number] Intake, IV Titration 100 205.972 45.289 Amount propofoL 1,000 mg In 100 205.972 45.289 Empty Bag 1 bag @ Titrate IV .Q0M ELIF Rx#: [id number] Tube Feeding 368 468 39 Other 90 90 Output: Urine 15 0 0 Hemodialysis 1000 Other: Voiding Method Indwelling Catheter ABP, PAP, CO, CI - Last Documented Arterial Blood Pressure 133/50 - Labs CBC & Chem 7: 02/01/21 04:10 02/01/21 04:10 Labs: Abnormal Lab Results - Last 24 Hours (Table) 01/31/21 01/31/21 01/31/21 Range/Units 11:55 13:50 17:27 RBC (3.80-5.40) m/uL Hgb (11.4-16.0) gm/dL Hct (34.0-46.0) % RDW (11.5-15.5) % Lymphocytes # (1.0-4.8) k/uL ABG HCO3 (21-25) mmol/L ABG Total CO2 (19-24) mmol/L ABG O2 Saturation (94-97) % BUN (7-17) mg/dL Creatinine (0.52-1.04) mg/dL Glucose (74-99) mg/dL POC Glucose (mg/dL) 121 H 169 H (75-99) mg/dL Calcium (8.4-10.2) mg/dL Alkaline Phosphatase (38-126) U/L Troponin I 0.111 H* (0.000-0.034) ng/mL Total Protein (6.3-8.2) g/dL Albumin (3.5-5.0) g/dL 01/31/21 02/01/21 02/01/21 Range/Units 23:22 04:10 04:10 RBC 2.78 L (3.80-5.40) m/uL Hgb 8.5 L (11.4-16.0) gm/dL Hct 27.3 L (34.0-46.0) % RDW 17.2 H (11.5-15.5) % Lymphocytes # 0.9 L (1.0-4.8) k/uL ABG HCO3 (21-25) mmol/L ABG Total CO2 (19-24) mmol/L ABG O2 Saturation (94-97) % BUN 24 H (7-17) mg/dL Creatinine 3.97 H (0.52-1.04) mg/dL Glucose 189 H (74-99) mg/dL POC Glucose (mg/dL) 210 H (75-99) mg/dL Calcium 8.0 L (8.4-10.2) mg/dL Alkaline Phosphatase 149 H (38-126) U/L Troponin I (0.000-0.034) ng/mL Total Protein 5.9 L (6.3-8.2) g/dL Albumin 2.8 L (3.5-5.0) g/dL 02/01/21 02/01/21 Range/Units 05:13 05:26 RBC (3.80-5.40) m/uL Hgb (11.4-16.0) gm/dL Hct (34.0-46.0) % RDW (11.5-15.5) % Lymphocytes # (1.0-4.8) k/uL ABG HCO3 28 H (21-25) mmol/L ABG Total CO2 30 H (19-24) mmol/L ABG O2 Saturation 97.4 H (94-97) % BUN (7-17) mg/dL Creatinine (0.52-1.04) mg/dL Glucose (74-99) mg/dL POC Glucose (mg/dL) 196 H (75-99) mg/dL Calcium (8.4-10.2) mg/dL Alkaline Phosphatase (38-126) U/L Troponin I (0.000-0.034) ng/mL Total Protein (6.3-8.2) g/dL Albumin (3.5-5.0) g/dL Assessment and Plan Assessment: Assessment #1 cardiopulmonary arrest #2 prolonged QT #3 history of ventricular tachycardia #4 hypoxic respiratory failure #5 possible anoxic brain injury Plan #1 continue the current medical regimen #2 continue monitoring the QT interval #3 avoid any medication, prolonged QT #4 follow-up with the patient #5 rule out severe ischemic etiology like coronary artery disease
--- NOTE | 2021-02-01 10:48 | XR ---
EXAMINATION TYPE: XR chest 1V portable DATE OF EXAM: 02/01/2021 COMPARISON: 01/31/2021 INDICATION: Tube placement TECHNIQUE: Single frontal view of the chest is obtained. FINDINGS: The heart size is normal. There is persistent widening of the mediastinum. The pulmonary vasculature is normal. Left lower lobe infiltrate is present. Endotracheal tube tip is above the ady. Nasogastric tube tr ansverses the thorax. IMPRESSION: 1. Chest x-ray appears stable from comparison.
[2021-02-01 11:23] LABS: Glucose,Whole Blood 245 mg/dL (75-99)
--- NOTE | 2021-02-01 12:03 | P.PN ---
Subjective Progress Note Date: 02/01/21 Principal diagnosis: Cardiac arrest and anoxic brain injury This is a 65-year-old female with history of multiple medical problems, known to have end-stage renal disease, on hemodialysis, type 2 diabetes, coronary artery disease, cardiogenic in the form of ventricular tachycardia, patient had had hemodialysis yesterday, and she went home felt nauseated, while at home the patient had a sudden cardiac arrest at 1310. Family initiated CPR according to EMS, fire department arrived to the scene and found the patient to be unresponsive, in ventricular fibrillation. She was defibrillated, and CPR was continued. Patient received epinephrine, and after the second the defibrill ation, there was return of spontaneous circulation. Down time was in the range of 20 minutes. Patient was brought into the emergency room, kept on mechanical ventilation, she was hemodynamically stable not requiring any pressors. Transferred to the ICU, and I was asked to see her on consultation. The major concern at this point is the fact that the patient had a prolonged downtime, and she most likely sustained anoxic brain injury. Hence a neurological consultation was initiated on this patient. I discontinued all her sedation and we will arrange for neurological consultation. Ventilator oreilly the patient is on assist control rate of 14, volume 350 FiO2 went down from 60% to 45%, ABG s howed a pO2 of 130 pCO2 of 36 pH of 7.52. All this information was obtained from the chart, no family members available at bedside Patient was reevaluated today on 01/30/2021, remains in the ICU, intubated and mechanically ventilated. Her ventilator settings are assist control rate of 14 tidal volume of 350 FiO2 is 50% PEEP of 5. Patient remains on propofol at 30 mcg/kg/m, remains on antibiotics for her cellulitis she is on Zosyn. Patient is only withdrawing to painful stimuli, but no purposeful movement. She was seen by neurology on consultation, and neurology feels that the patient has anoxic brain injury from prolonged cardiac arrest along with metabolic encephalopathy. In addition to all of this she has underlying covid 19 pneumonia. In addition to this, the patient has history of end-stage renal disease on hemodialysis, she also had history of DVT maintained on all across, and history of peripheral neuropathy. Labs today showed a pO2 of 123 pCO2 of 42 pH of 7.47 her WBC count is 11.9 hemoglobin is 8.6. BUN is 27 creatinine is 4.63. On 01/31/2002, patient's follow-up in the intensive care unit, she remains intubated, sedated, currently on assist control with a rate of 14, tidal volumes 350, FiO2 of 50%, and PEEP of 5, this morning's blood gases show pO2 146, pCO2 44, and pH of 7.39 and subsequently FiO2 was dropped down to 40%, currently on 0.9 ns at 10 ML per hour, Diprivan is at 20 mics per kilo per minute, no other drips, nutritional support in the form of vital high protein at 30, with a goal of 39. Patient is currently receiving hemodialysis treatment, patient is a chronic hemodialysis patient on the Sunday schedule. Patient apparently failed daily interruption of sedation, has not been following purposeful commands, she is only withdrawing to painful stimuli, there is no purposeful movement. Patient has been seen in consultation by neurology and followed by neurology and there is a possibility of anoxic brain injury from prolonged cardiac arrest along with metabolic encephalopathy. Patient tested positive for COVID 19 this admission. Chest x-ray today shows diffuse interstitial densities. Brain CT showed no acute intracranial process. EEG on 2020 showed background slowing suggestive of moderate encephalopathy, with no focal slowing, epileptiform discharge or seizures. Patient is receiving Keppra. Patient is on empiric antibiotics in the form of Zosyn. She is on Eliquis at 2.5 mg twice daily previous history of DVT, and possible paroxysmal A. fib. Cardiology is following in regards to V. fib arrest, there has been no further arrhythmias overnight On 02/01/2021 patient is seen in follow-up in the intensive care unit, patient remains sedated, intubated on assist control mode of ventilation with a rate of 14, tidal significant, FiO2 of 40% and PEEP of 5, his blood gases show pO2 of 85, pCO2 43 pH is 7.43. Today's chest x-ray shows stable left lower lobe infiltrate. FiO2 is 40%. No acute events overnight. Patient receiving initiation of support informal vital high protein at 39 with a goal of 39 ML per hour. EEG was done on 01/30/2021, showing abnormal routine EEG, with background slowing suggestive of moderate encephalopathy due to toxic metabolic disturbance. There was no focal slowing or epileptiform discharge or seizure. Patient continues on Keppra. Neurology is following. There has been no recurrence of arrhythmia, cartiology is following. Patient is on Eliquis for paroxysmal atrial fibrillation Objective - Vital Signs Vital signs: Vital Signs Temp 97.8 F 02/01/21 04:00 Pulse 62 02/01/21 07:00 Resp 16 02/01/21 07:00 BP 131/65 02/01/21 05:00 Pulse Ox 98 02/01/21 07:00 Intake & Output 01/31/21 02/01/21 02/01/21 18:59 06:59 18:59 Intake Total 878 1053.972 94.289 Output Total 1015 0 0 Balance -137 1053.972 94.289 Weight 103.6 kg 103.6 kg Intake: IV 320 290 10 0.9 @ 10ml/hr 120 90 10 Piperacillin-Tazobactam 3 100 100 .375 gm In Sodium Chloride 0.9% 100 ml @ 25 mls/hr IVPB Q12HR EL[facility] Rx #:[id number] levETIRAcetam IV 500 mg 100 100 In Sodium Chloride 0.9% 100 ml @ 400 mls/hr IVPB Q12HR ELIF Rx#:[id number] Intake, IV Titration 100 205.972 45.289 Amount propofoL 1,000 mg In 100 205.972 45.289 Empty Bag 1 bag @ Titrate IV .Q0M ELIF Rx#: [id number] Tube Feeding 368 468 39 Other 90 90 Output: Urine 15 0 0 Hemodialysis 1000 Other: Voiding Method Indwelling Catheter ABP, PAP, CO, CI - Last Documented Arterial Blood Pressure 133/50 - Exam GENERAL EXAM: Sedated, intubated, 65-year-old obese black female comfortable in no apparent distress. HEAD: Normocephalic/atraumatic. EYES: Normal reaction of pupils, equal size. Conjunctiva pink, sclera white. NOSE: Clear with pink turbinates. THROAT: No erythema or exudates. NECK: No masses, no JVD, no thyroid enlargement, no adenopathy. CHEST: No chest wall deformity. Symmetrical expansion. LUNGS: Equal air entry with no crackles, wheeze, rhonchi or dullness. CVS: Regular rate and rhythm, normal S1 and S2, no gallops, no murmurs, no rubs ABDOMEN: Soft, nontender. No hepatosplenomegaly, normal bowel sounds, no guarding or rigidity. EXTREMITIES: No clubbing, no edema, no cyanosis, 2+ pulses and upper and lower extremities. MUSCULOSKELETAL: Muscle strength and tone normal. SPINE: No scoliosis or deformity SKIN: No rashes CENTRAL NERVOUS SYSTEM: Sedated, intubated No focal deficits, tone is normal in all 4 extremities. - Labs CBC & Chem 7: 02/01/21 04:10 02/01/21 04:10 Labs: Abnormal Lab Results - Last 24 Hours (Table) 01/31/21 01/31/21 01/31/21 Range/Units 11:55 13:50 17:27 RBC (3.80-5.40) m/uL Hgb (11.4-16.0) gm/dL Hct (34.0-46.0) % RDW (11.5-15.5) % Lymphocytes # (1.0-4.8) k/uL ABG HCO3 (21-25) mmol/L ABG Total CO2 (19-24) mmol/L ABG O2 Saturation (94-97) % BUN (7-17) mg/dL Creatinine (0.52-1.04) mg/dL Glucose (74-99) mg/dL POC Glucose (mg/dL) 121 H 169 H (75-99) mg/dL Calcium (8.4-10.2) mg/dL Alkaline Phosphatase (38-126) U/L Troponin I 0.111 H* (0.000-0.034) ng/mL Total Protein (6.3-8.2) g/dL Albumin (3.5-5.0) g/dL 01/31/21 02/01/21 02/01/21 Range/Units 23:22 04:10 04:10 RBC 2.78 L (3.80-5.40) m/uL Hgb 8.5 L (11.4-16.0) gm/dL Hct 27.3 L (34.0-46.0) % RDW 17.2 H (11.5-15.5) % Lymphocytes # 0.9 L (1.0-4.8) k/uL ABG HCO3 (21-25) mmol/L ABG Total CO2 (19-24) mmol/L ABG O2 Saturation (94-97) % BUN 24 H (7-17) mg/dL Creatinine 3.97 H (0.52-1.04) mg/dL Glucose 189 H (74-99) mg/dL POC Glucose (mg/dL) 210 H (75-99) mg/dL Calcium 8.0 L (8.4-10.2) mg/dL Alkaline Phosphatase 149 H (38-126) U/L Troponin I (0.000-0.034) ng/mL Total Protein 5.9 L (6.3-8.2) g/dL Albumin 2.8 L (3.5-5.0) g/dL 02/01/21 02/01/21 02/01/21 Range/Units 05:13 05:26 11:22 RBC (3.80-5.40) m/uL Hgb (11.4-16.0) gm/dL Hct (34.0-46.0) % RDW (11.5-15.5) % Lymphocytes # (1.0-4.8) k/uL ABG HCO3 28 H (21-25) mmol/L ABG Total CO2 30 H (19-24) mmol/L ABG O2 Saturation 97.4 H (94-97) % BUN (7-17) mg/dL Creatinine (0.52-1.04) mg/dL Glucose (74-99) mg/dL POC Glucose (mg/dL) 196 H 245 H (75-99) mg/dL Calcium (8.4-10.2) mg/dL Alkaline Phosphatase (38-126) U/L Troponin I (0.000-0.034) ng/mL Total Protein (6.3-8.2) g/dL Albumin (3.5-5.0) g/dL Assessment and Plan Plan: Cardiac arrest most likely secondary to cardiac arrhythmia initial rhythm was ventricular fibrillation upon EMS arrival. Acute hypoxic respiratory failure secondary to above. Bilateral interstitial edema most likely secondary to end-stage renal disease and suspect acute systolic congestive heart failure, likely ischemic in nature. Cardiac workup is pending. Strongly suspect anoxic brain injury and metabolic encephalopathy secondary to cardiac arrest. Type 2 diabetes. Benign essential hypertension. end stage renal disease on hemodialysis. History of carotid artery disease. History of DVT been maintained on all across. History of diabetic peripheral neuropathy. History of cardiac arrhythmia requiring cardiac ablation. Chronic lymphedema and cellulitis of both lower extremities. History of irritable bowel syndrome. History of covid 19 infection in October of 2020 Possible right paratracheal hematoma from attempted central line placement, CT of the chest was ordered. Plan: We will proceed with daily interruption of sedation, assess mental status. We will proceed with spontaneous breathing trials if patient tolerates daily sedation interruption. Today's chest x-ray have been reviewed. We will 6 mg daily IV, continued with oral anticoagulation, there has been no recurrence of paroxysmal A. fib or V. fib or V. tach, cardiology is following. We'll prognosis is extremely guarded, and closely follow in the ICU, and monitor for signs of neurologic improvement. I performed a history & physical examination of the patient and discussed their management with my nurse practitioner, Maryann Louis. I reviewed the nurse practitioner's note and agree with the documented findings and plan of care. Lung sounds are positive for diminished breath sounds. The findings and the impression was discussed with the patient. I attest to the documentation by the nurse practitioner. Time with Patient: Greater than 30
--- NOTE | 2021-02-01 12:25 | P.PN ---
Subjective Patient is a pleasant 65-year-old the female was discharged from my service yesterday after she was treated for encephalopathy related to hypoglycemia. Patient had a cardiorespiratory arrest was pretty functional ambulate and go shopping at the time when she had a cardiorespiratory arrest, CPR was started and patient was later found to have went to her tachycardia, patient returned to sinus rhythm and 25 minutes subsequently was intubated and brought to emergency department. Patient did have history of ventricular tachycardia in the past pa tient was started on amiodarone at that time. Patient does have medical multiple medical problems including end-stage renal disease dialysis dependent chest x-ray showing significant infiltrate in the right lung mostly appears to be volume overload patient does have low-grade fever which can be secondary to cardiorespiratory arrest but patient was empirically started on Zosyn and patient is being admitted to ICU patient is presently intubated with FiO2 of 100% PEEP of 5 patient is breathing over the ventilator patient is on assist- control/volume controlled ventilation, on propofol patient does have conjunctival and corneal reflexes, does have gag reflex. No significant electrolyte abnormalities were appreciated. 01/29/2021 Patient is on ventilator support patient the doesn't have any significant response in after discontinue additional of sedation for about 4 hours. Patient was evaluated by multiple consultants including neurology patient had an EEG to assess for the brain function because of significant anoxic brain injury, patient has significant background slowing slowing encephalopathy. Patient still has brainstem reflexes that were described above. Patient had an echo Wh ich showed normal ejection fraction and grade 1 diastolic dysfunction. 01/30/2021 Patient was started back on propofol as patient is not tolerating ventilator patient remains on ventilatory support . Patient will undergo he hemodialysis tomorrow. Patient is on cisatracurium as well. Patient is undergoing repeat EEG to assess the brain function patient still has ranged stem reflexes at this time. 01/31/2021 Patient remains in intensity and neck done ventilatory support. Patient had a repeat EEG which she appeared to be bit better. Patient does have corneal reflex but doesn't have any conjunctival reflux, patient does have cough reflex biting on the ventilator. Patient remains on the propofol drip and patient neurological assessment it to be done off sedation although patient doesn't appear to be tolerating off sedation. Patient had dialysis today. 02/01/2021 Patient's sedation is being turned off at this time patient will be evaluated or sedation by neurology. Patient has sluggish are absent pupillary reflexes patient is still barely breathing over the ventilator at this time. Chest x-ray showing left lower lobe infiltrate today patient is on the NG tube feedings patient can use to be on Keppra prophylactically there is focal slowing on the EEG without any epileptiform discharges. Review of systems: Unable to obtain as patient is intubated All inpatient medications were reviewed and appropriate changes in these medications as dictated in the interval history and assessment and plan. Objective - Vital Signs Vital signs: Vital Signs Temp 97.8 F 02/01/21 04:00 Pulse 62 02/01/21 07:00 Resp 16 02/01/21 07:00 BP 131/65 02/01/21 05:00 Pulse Ox 98 02/01/21 07:00 Intake & Output 01/31/21 02/01/21 02/01/21 18:59 06:59 18:59 Intake Total 878 1053.972 94.289 Output Total 1015 0 0 Balance -137 1053.972 94.289 Weight 103.6 kg 103.6 kg Intake: IV 320 290 10 0.9 @ 10ml/hr 120 90 10 Piperacillin-Tazobactam 3 100 100 .375 gm In Sodium Chloride 0.9% 100 ml @ 25 mls/hr IVPB Q12HR ELIF Rx #:[id number] levETIRAcetam IV 500 mg 100 100 In Sodium Chloride 0.9% 100 ml @ 400 mls/hr IVPB Q12HR ELIF Rx#:[id number] Intake, IV Titration 100 205.972 45.289 Amount propofoL 1,000 mg In 100 205.972 45.289 Empty Bag 1 bag @ Titrate IV .Q0M ELIF Rx#: [id number] Tube Feeding 368 468 39 Other 90 90 Output: Urine 15 0 0 Hemodialysis 1000 Other: Voiding Method Indwelling Catheter ABP, PAP, CO, CI - Last Documented Arterial Blood Pressure 133/50 - Exam PHYSICAL EXAMINATION: GENERAL: Patient is intubated sedated, does have an NG tube with some bloody drainage from the NG tube. Patient has a central line and arterial line HEENT: Pupils are round and and constricted at this time because of propofol. EOMI. No scleral icterus. No conjunctival pallor. Normocephalic, atraumatic. No pharyngeal erythema. No thyromegaly. CARDIOVASCULAR: S1 and S2 present. No murmurs, rubs, or gallops. PULMONARY: Chest is clear to auscultation, no wheezing or crackles. ABDOMEN: Soft, nontender, nondistended, normoactive bowel sounds. No palpable organomegaly. MUSCULOSKELETAL: No joint swelling or deformity. EXTREMITIES: No cyanosis, clubbing, bilateral pedal edema which is actually better compared to yesterday when I discharged patient. NEUROLOGICAL: Intubated sedated but does have brainstem reflexes SKIN: Stage I and 2 ulcers which doesn't appear to be infected - Labs CBC & Chem 7: 02/01/21 04:10 02/01/21 04:10 Labs: Abnormal Lab Results - Last 24 Hours (Table) 01/31/21 01/31/21 01/31/21 Range/Units 13:50 17:27 23:22 RBC (3.80-5.40) m/uL Hgb (11.4-16.0) gm/dL Hct (34.0-46.0) % RDW (11.5-15.5) % Lymphocytes # (1.0-4.8) k/uL ABG HCO3 (21-25) mmol/L ABG Total CO2 (19-24) mmol/L ABG O2 Saturation (94-97) % BUN (7-17) mg/dL Creatinine (0.52-1.04) mg/dL Glucose (74-99) mg/dL POC Glucose (mg/dL) 169 H 210 H (75-99) mg/dL Calcium (8.4-10.2) mg/dL Alkaline Phosphatase (38-126) U/L Troponin I 0.111 H* (0.000-0.034) ng/mL Total Protein (6.3-8.2) g/dL Albumin (3.5-5.0) g/dL 02/01/21 02/01/21 02/01/21 Range/Units 04:10 04:10 05:13 RBC 2.78 L (3.80-5.40) m/uL Hgb 8.5 L (11.4-16.0) gm/dL Hct 27.3 L (34.0-46.0) % RDW 17.2 H (11.5-15.5) % Lymphocytes # 0.9 L (1.0-4.8) k/uL ABG HCO3 28 H (21-25) mmol/L ABG Total CO2 30 H (19-24) mmol/L ABG O2 Saturation 97.4 H (94-97) % BUN 24 H (7-17) mg/dL Creatinine 3.97 H (0.52-1.04) mg/dL Glucose 189 H (74-99) mg/dL POC Glucose (mg/dL) (75-99) mg/dL Calcium 8.0 L (8.4-10.2) mg/dL Alkaline Phosphatase 149 H (38-126) U/L Troponin I (0.000-0.034) ng/mL Total Protein 5.9 L (6.3-8.2) g/dL Albumin 2.8 L (3.5-5.0) g/dL 02/01/21 02/01/21 Range/Units 05:26 11:22 RBC (3.80-5.40) m/uL Hgb (11.4-16.0) gm/dL Hct (34.0-46.0) % RDW (11.5-15.5) % Lymphocytes # (1.0-4.8) k/uL ABG HCO3 (21-25) mmol/L ABG Total CO2 (19-24) mmol/L ABG O2 Saturation (94-97) % BUN (7-17) mg/dL Creatinine (0.52-1.04) mg/dL Glucose (74-99) mg/dL POC Glucose (mg/dL) 196 H 245 H (75-99) mg/dL Calcium (8.4-10.2) mg/dL Alkaline Phosphatase (38-126) U/L Troponin I (0.000-0.034) ng/mL Total Protein (6.3-8.2) g/dL Albumin (3.5-5.0) g/dL Assessment and Plan Plan: -Cardiorespiratory arrest leading to respiratory failure: Secondary to ventricular tachycardia patient was evaluated by cardiology echocardiogram as m entioned above . Repeat EEG showed some improvement in background slowing. Mentionable sensation is being turned off and patient will be reevaluated by neurology to assess as the brain function. Patient appears to have significant anoxic brain injury -Acute hypoxic respiratory failure leading to anoxic brain patient is undergoing repeat EEG but patient is presently on sedation. -Volume overload: Secondary to end-stage renal disease nephrology evaluated the patient. Hemodialysis today -Fever: Most probably secondary to cardiorespiratory arrest blood cultures will be obtained chest x-ray findings are more consistent with volume overload that pneumonia patient is on Zosyn -Recent covid 19 infection and month of October because of which I'm not repeating PCR for Covid -End-stage renal disease, dialysis dependent -Type 2 diabetes mellitus patient is on sliding scale will hold off on long- acting insulin history of DVT for which patient is on Eliquis -Hypertension -Diabetic peripheral neuropathy -bilateral lower extremity ulcers doesn't appear to have cellulitis but does have chronic lymphedema Patient prognosis is extremely poor
--- NOTE | 2021-02-01 13:01 | P.PN ---
Subjective Progress Note Date: 02/01/21 02/01/2021: Patient was seen for a follow-up at 12:30 PM. Patient sedation was discontinued at 11:30 AM. I saw her almost one hour after she was off sedation. Patient continued to be comatose, not responding to any internal or external stimuli. No seizure-like activity noted. Patient apparently started biting on the ET tube, started to bite on her tongue. Fortunately she did not bite her tongue, as propofol was resumed and the tongue was gently pushed inside. 01/31/2021: Patient is a 65-year-old female came to the hospital on 01/28/2021 at 2:07 PM after a cardiac arrest with the downtime of 25 minutes. Patient had undergone hemodialysis in the morning, then for errands with her , came back home and had mentioned that she was not feeling well, vomited before she collapsed and had cardiac arrest. Patient's family started CPR before EMS arrived. Patient was shocked twice, appendectomy was given once and was intubated. Patient currently on propofol 20 g. Patient was initially seen by Dr. Lenny Fernandez. Please refer to his note for details. Patient has developed encephalopathy probably multifactorial due to anoxic brain injury from prolonged cardiac arrest, component of metabolic encephalopathy with uncontrolled diabetes, hypotension, underlying pneumonia from Covid. Patient also has history of end-stage renal disease on hemodialysis. Patient had an EEG performed yesterday, which revealed background slowing suggestive of moderate encephalopathy. The bilateral frontal intermittent rhythmic delta activity is due to toxic metabolic disturbance or structural lesion. No epileptiform activity was seen. Patient's background has improved as compared to the EEG from the day prior for 01/15/2021. Patient's blood test shows WBC 10.3 hemoglobin 8.0, platelets 328. Sodium 130 potassium 4.4, BUN 33, creatinine 6.32. Hepatic panel normal. CT head from 01/31/2021 shows no acute process. Per nursing report, when sedation is decreased, patient starts biting on the ET tube and her breathing becomes fast. CT head reported as no acute process per radiology report from 01/31/2021. Although on my review, there is evidence of generalized cerebral edema, somewhat with effacement of the sulci as compared to the computed tomography scan from 01/29/2021. Objective - Vital Signs Vital signs: Vital Signs Temp 97.8 F 02/01/21 04:00 Pulse 62 02/01/21 07:00 Resp 16 02/01/21 07:00 BP 131/65 02/01/21 05:00 Pulse Ox 98 02/01/21 07:00 Intake & Output 01/31/21 02/01/21 02/01/21 18:59 06:59 18:59 Intake Total 878 1053.972 94.289 Output Total 1015 0 0 Balance -137 1053.972 94.289 Weight 103.6 kg 103.6 kg Intake: IV 320 290 10 0.9 @ 10ml/hr 120 90 10 Piperacillin-Tazobactam 3 100 100 .375 gm In Sodium Chloride 0.9% 100 ml @ 25 mls/hr IVPB Q12HR ELIF Rx #:[id number] levETIRAcetam IV 500 mg 100 100 In Sodium Chloride 0.9% 100 ml @ 400 mls/hr IVPB Q12HR ELIF Rx#:[id number] Intake, IV Titration 100 205.972 45.289 Amount propofoL 1,000 mg In 100 205.972 45.289 Empty Bag 1 bag @ Titrate IV .Q0M ELIF Rx#: [id number] Tube Feeding 368 468 39 Other 90 90 Output: Urine 15 0 0 Hemodialysis 1000 Other: Voiding Method Indwelling Catheter ABP, PAP, CO, CI - Last Documented Arterial Blood Pressure 133/50 - Exam On examination patient is an elderly female, who is unresponsive, comatose. Patient has been off sedation for last 1 hour. Patient does not respond to calling her name, or with noxious stimuli with nailbed pressure involving all 4 extremities, no grimacing or any movement of the extremities. Pupils are round, not clearly reactive. Oculocephalics are absent. Corneals ar e slightly present. Patient started to bite on the ET tube real hard. She then started to protrude her tongue out and was almost about to bite her tongue out, when sedation was resumed. No obvious seizure activity noted. Patient does not respond to painful stimuli. Plantars are flat. Patient is peripheral edema. - Labs CBC & Chem 7: 02/01/21 04:10 02/01/21 04:10 Labs: Abnormal Lab Results - Last 24 Hours (Table) 01/31/21 01/31/21 01/31/21 Range/Units 13:50 17:27 23:22 RBC (3.80-5.40) m/uL Hgb (11.4-16.0) gm/dL Hct (34.0-46.0) % RDW (11.5-15.5) % Lymphocytes # (1.0-4.8) k/uL ABG HCO3 (21-25) mmol/L ABG Total CO2 (19-24) mmol/L ABG O2 Saturation (94-97) % BUN (7-17) mg/dL Creatinine (0.52-1.04) mg/dL Glucose (74-99) mg/dL POC Glucose (mg/dL) 169 H 210 H (75-99) mg/dL Calcium (8.4-10.2) mg/dL Alkaline Phosphatase (38-126) U/L Troponin I 0.111 H* (0.000-0.034) ng/mL Total Protein (6.3-8.2) g/dL Albumin (3.5-5.0) g/dL 02/01/21 02/01/21 02/01/21 Range/Units 04:10 04:10 05:13 RBC 2.78 L (3.80-5.40) m/uL Hgb 8.5 L (11.4-16.0) gm/dL Hct 27.3 L (34.0-46.0) % RDW 17.2 H (11.5-15.5) % Lymphocytes # 0.9 L (1.0-4.8) k/uL ABG HCO3 28 H (21-25) mmol/L ABG Total CO2 30 H (19-24) mmol/L ABG O2 Saturation 97.4 H (94-97) % BUN 24 H (7-17) mg/dL Creatinine 3.97 H (0.52-1.04) mg/dL Glucose 189 H (74-99) mg/dL POC Glucose (mg/dL) (75-99) mg/dL Calcium 8.0 L (8.4-10.2) mg/dL Alkaline Phosphatase 149 H (38-126) U/L Troponin I (0.000-0.034) ng/mL Total Protein 5.9 L (6.3-8.2) g/dL Albumin 2.8 L (3.5-5.0) g/dL 02/01/21 02/01/21 Range/Units 05:26 11:22 RBC (3.80-5.40) m/uL Hgb (11.4-16.0) gm/dL Hct (34.0-46.0) % RDW (11.5-15.5) % Lymphocytes # (1.0-4.8) k/uL ABG HCO3 (21-25) mmol/L ABG Total CO2 (19-24) mmol/L ABG O2 Saturation (94-97) % BUN (7-17) mg/dL Creatinine (0.52-1.04) mg/dL Glucose (74-99) mg/dL POC Glucose (mg/dL) 196 H 245 H (75-99) mg/dL Calcium (8.4-10.2) mg/dL Alkaline Phosphatase (38-126) U/L Troponin I (0.000-0.034) ng/mL Total Protein (6.3-8.2) g/dL Albumin (3.5-5.0) g/dL Assessment and Plan Assessment: * Status post cardiac arrest with anoxic encephalopathy. * Probable superimposed component of metabolic encephalopathy. * End-stage renal disease on hemodialysis. * Acute Covid-19 related pneumonia. Plan: * Patient clinically is no better 96 hours post cardiac arrest. Patient was examined today without sedation, and there is no clinical improvement. Patient continues to be comatose. * Patient computed tomography scan of the head from today shows mild generalized cerebral edema, with slight effacement of the sulci, as per my review, although the radiologist reported normal. * Prognosis appears very guarded to poor for meaningful recovery at this time based upon lack of significant clinical improvement, and also multiple comorb id conditions. * EEG canceled, as it will not change the management. She already had 2 EEGs performed in the past. She is not showing any signs of seizure. * Discussed with family in detail, informed the patient's , and her daughters on the phone about current condition and prognosis as above. * Continue present management and supportive care.
[2021-02-01] MEDS: DEXAMETHASONE SOD PHOSPHATE 10 MG/ML 1 ML VIAL IV SCH (13:17)
--- NOTE | 2021-02-01 14:29 | CDI ---
Documentation Clarification Form Date: 02/01/2021 02:25:14 PM From: Sobeida Scott RN, CCDS Admit Date: 01/28/2021 03:20:00 PM Patient Name: Clarissa Lazar Visit Number: [id number] Discharge Date: ATTENTION: The Clinical Documentation Specialists (CDI) and [facility] Coding Staff appreciate your assistance in clarifying documentation. Please respond to the clarification below the line at the bottom and electronically sign. The CDI & [facility] Coding staff will review the response and follow-up if needed. Please note: Queries are made part of the Legal Health Record. If you have any questions, please contact the author of this message via ITS. Dr. Mack Martinez The patient has had a recent episode of COVID-19 infection 11/01/20 as documented in the medical record, and now presents on 01/28 with Covid detected: History: Covid infection, Diabetes Mellitus, ESRD, Coronary artery disease Clinical Indicators: 65-year old female present to ED after cardiopulmonary arrest, ventricular fibrillation with intubated by EMS prior to arrival. She has a known history of Covid positive 11/01/20. Covid 19 testing on 12/08, 12/14, 01/26 Covid was not detected On admission 01/28/21: Covid Detected. Treatment: ICU/Telemetry monitoring Mechanical ventilation per Pulmonary Monitor Labs, BUN, CR, Lytes per orders Decadron 6 MG IV Daily Zinc Sulfate 220 MG PO BID Please clarify the current status of the patients COVID-19 infection, such as: COVID-19 continues to be a current and active infection, and the stated condition is a continuation of its symptoms COVID-19 is not a current infection, and the stated condition is a residual effect/sequelae of COVID-19 Other explanation of clinical findings (please specify): Clinically unable to determine the current status of the patients COVID-19 infection Unknown COVID-19 is not a current infection, and the stated condition is a residual effect/sequelae of COVID-19 MTDD
--- NOTE | 2021-02-01 16:41 | ECHOF ---
Referral Reason:cardiac arrest MEASUREMENTS -------- HEIGHT: 167.6 cm WEIGHT: 103.4 kg BP: IVSd: 1.7 cm (0.6 - 1.1) LVIDd: 3.9 cm (3.9 - 5.3) LVPWd: 1.5 cm (0.6 - 1.1) EDV(Teich): 64 ml IVSs: 1.6 cm LVIDs: 2.6 cm LVPWs: 2.0 cm %IVS Thck: -8 % ESV(Teich): 26 ml EF(Teich): 60 % %FS: 32 % SV(Teich): 39 ml RVIDd: 4.3 cm (< 3.3) IVC: 20.43 mm Ao Diam: 2.8 cm (2.0 - 3.7) LA Diam: 3.8 cm (2.7 - 3.8) AV Cusp: 1.9 cm (1.5 - 2.6) EPSS: 0.7 cm MV E Sherman: 0.51 m/s MV DecT: 344 ms MV Dec Rush: 1.5 m/s MV A Sherman: 0.85 m/s MV E/A Ratio: 0.60 MV PHT: 100 ms MR Vmax: 2.22 m/s MR maxP.76 mmHg LVOT Vmax: 0.62 m/s LVOT maxP.55 mmHg AV Vmax: 1.12 m/s AV maxP.98 mmHg PV Vmax: 1.15 m/s PV maxP.30 mmHg CO Vmax: 1.79 m/s CO maxP.84 mmHg CO PHT: 522 ms CO DecT: 1799 ms CO Dec Rush: 1.0 m/s TR Vmax: 2.93 m/s TR maxP.31 mmHg RAP: 20.00 mmHg RVSP: 54.31 mmHg MV EF SLOPE: 66.61 mm/s (70 - 150) MV EXCURSION: 12.91 mm (> 18.000) FINDINGS -------- This was a technically good study. Pt. on a vent. The left ventricular size is normal. There is moderate concentric left ventricular hypertrophy. O verall left ventricular systolic function is normal with, an EF between 55 - 60 %. There is paradox ical/dysynergic septal motion consistent with right ventricular volume overload and/or elevated right ventricular end-diastolic pressure. The right ventricle is severely enlarged. The left atrial size is normal. The right atrial size is normal. The aortic valve is trileaflet and appears structurally normal. The mitral valve is normal. The mitral valve leaflets are mildly thickened. There is trace mitral regurgitation. The tricuspid valve appears structurally normal. Severe tricuspid regurgitation present. There is moderate pulmonary hypertension. The right ventricular systolic pressure, as measured by Doppler, is 54.31mmHg. Trace/mild (physiologic) pulmonic regurgitation. The aortic root size is normal. The inferior vena cava is dilated with no significant inspiratory collapse which is consistent estima tucker right atrial pressure of >20 mmHg. There is no pericardial effusion. CONCLUSIONS -------- 1. The left ventricular size is normal. 2. There is moderate concentric left ventricular hypertrophy. 3. Overall left ventricular systolic function is normal with, an EF between 55 - 60 %. 4. There is paradoxical/dysynergic septal motion consistent with right ventricular volume overload an d/or elevated right ventricular end-diastolic pressure. 5. The right ventricle is severely enlarged. 6. The mitral valve leaflets are mildly thickened. 7. There is trace mitral regurgitation. 8. Severe tricuspid regurgitation present. 9. There is moderate pulmonary hypertension. 10. The right ventricular systolic pressure, as measured by Doppler, is 54.31mmHg. 11. Trace/mild (physiologic) pulmonic regurgitation. 12. The inferior vena cava is dilated with no significant inspiratory collapse which is consistent es timated right atrial pressure of >20 mmHg. 13. There is no pericardial effusion. MANAGER FAMILY: Maria Ines Royal RDCS
[2021-02-01 17:14] LABS: Glucose,Whole Blood 282 mg/dL (75-99)
[2021-02-01] MEDS: amLODIPine 10 MG TAB PO SCH (19:27)
--- NOTE | 2021-02-01 22:34 | PN ---
PROGRESS NOTE The patient is being followed for end-stage renal disease. This morning, the patient was taken off sedation. However, they continued to be no purposeful movements. She did start biting and therefore patient was placed on sedation again. She did not bite her tongue. A bite guard was placed. Case was discussed with nursing staff. The patient was not examined due to Covid pneumonia. She has been tolerating her tube feeds. Blood pressures been staying about 130-109 mmHg systolic. Heart rate about 50s per minute. On examination as discussed with nursing staff, no purposeful movements. No significant edema. The patient remains on the vent. LABS: Reviewed. Today's sodium 139, potassium 4.2, creatinine 3.97. ASSESSMENT: 1. End-stage renal disease, on hemodialysis on a Sunday, Sunday, Sunday schedule. 2. COVID pneumonia. 3. Status post cardiopulmonary arrest. 4. Anoxic encephalopathy. 5. Anemia of chronic disease. No active bleeding noted currently. PLAN: Hemodialysis in a.m. Agree with discussion regarding code status and further plan of care given the significant anoxic encephalopathy. The patient is being followed by Neurology. MMODL / IJN: [id number] /
[2021-02-02 00:08] LABS: Glucose,Whole Blood 259 mg/dL (75-99)
[2021-02-02] MEDS: INSULIN ASPART (NovoLOG) 100 UNIT/ML VIAL SQ SCH ×4 (00:41→18:12)
[2021-02-02 03:53] LABS: Anisocytosis Slight; Basophils # (A) 0.1 k/uL (0-0.2); Basophils % (A) 1 %; Eosinophils # (A) 0.2 k/uL (0-0.7); Eosinophils % (A) 2 %; HCT 26.1 % (34.0-46.0); HGB 8.1 gm/dL (11.4-16.0); Hypochromasia Marked; Lymphocytes # (A) 1.1 k/uL (1.0-4.8); Lymphocytes % (A) 13 %; MCH 30.8 pg (25.0-35.0); MCHC 31.1 g/dL (31.0-37.0); Macrocytosis Slight; Mean Platelet Volume 8.4; Monocytes # (A) 0.5 k/uL (0-1.0); Monocytes % (A) 6 %; Neutrophils # (A) 6.4 k/uL (1.3-7.7); Neutrophils % (A) 77 %; Platelet Count 295 k/uL (150-450); RBC 2.64 m/uL (3.80-5.40); RDW 17.5 % (11.5-15.5); WBC 8.2 k/uL (3.8-10.6)
[2021-02-02 04:10] LABS: D-Dimer 4.12 mg/L FEU (<0.60)
[2021-02-02 04:51] LABS: Albumin 2.7 g/dL (3.5-5.0); Calcium 8.2 mg/dL (8.4-10.2); Potassium 3.9 mmol/L (3.5-5.1); Total Bilirubin 0.5 mg/dL (0.2-1.3); Total Protein 5.7 g/dL (6.3-8.2)
[2021-02-02 05:18] LABS: C Reactive Protein 132.3 mg/L (<10.0)
[2021-02-02 05:23] LABS: ABG Base Excess 2.7 mmol/L; ABG HCO3 27 mmol/L (21-25); ABG Oxygen Saturation 95.7 % (94-97); ABG PCO2 43 mmHg (35-45); ABG PH 7.41 (7.35-7.45); ABG PO2 77 mmHg (83-108); ABG TCO2 29 mmol/L (19-24); Allen Test Performed? Yes
[2021-02-02 05:58] LABS: Glucose,Whole Blood 205 mg/dL (75-99)
--- NOTE | 2021-02-02 07:20 | XR ---
EXAMINATION TYPE: XR chest 1V portable DATE OF EXAM: 02/02/2021 COMPARISON: 02/01/2021 HISTORY: SOB, Follow Up FINDINGS: Indwelling tubes and catheters are unchanged. Scattered infiltrates are unchanged. Left lower lobe atelectasis. Stable appearance of the cardio-mediastinal structures at this time. Pleural effusion unchanged. IMPRESSION: 1. Stable portable chest. Clinical correlation and follow up until resolution is recommended.
[2021-02-02] MEDS: ALBUTEROL HFA INHALER INHALATION PRN ×2 (07:48→11:37)
[2021-02-02] MEDS: ASPIRIN 81 MG PO SCH (08:05)
[2021-02-02] MEDS: ZINC SULFATE 220 MG CAP PO SCH ×2 (08:06→21:33)
[2021-02-02] MEDS: CALCIUM ACETATE 667 MG TAB PO SCH ×2 (08:06→17:12)
[2021-02-02] MEDS: APIXABAN 2.5 MG TABLET PO SCH ×2 (08:06→21:33)
[2021-02-02] MEDS: DEXAMETHASONE SOD PHOSPHATE 10 MG/ML 1 ML VIAL IV SCH (08:06)
[2021-02-02] MEDS: CHLORHEXIDINE GLUCONATE 15 ML CUP MUCOUS MEM SCH ×2 (08:07→21:34)
[2021-02-02] MEDS: PANTOPRAZOLE 40 MG/10 ML VIAL IVP SCH ×2 (08:07→21:31)
[2021-02-02] MEDS: PIPERACILLIN-TAZOBACTAM 3.375 GM in SODIUM CHLORIDE 0.9% 100 ML IVPB SCH ×2 (08:07→21:32)
[2021-02-02] MEDS: levETIRAcetam IV 500 MG in SODIUM CHLORIDE 0.9% 100 ML IVPB SCH ×2 (08:07→21:34)
--- NOTE | 2021-02-02 08:36 | P.PN ---
Subjective Progress Note Date: 02/02/21 Principal diagnosis: Cardiopulmonary arrest This is a 65-year-old female patient with a past medical history significant for end stage renal disease on dialysis as well as history of ventricular tachycardia in the past as well as multiple comorbid conditions was admitted to the hospital with a cardiopulmonary arrest. The patient was seen today 02/02/2021. She remains hemodynamically stable. She continues to be intubated on mechanical ventilation. There is a concern about anoxic encephalopathy. From a cardiovascular standpoint of view, we'll continue the current medical regimen. We'll continue monitor the QT interval. Objective - Vital Signs Vital signs: Vital Signs Temp 97.5 F L 02/02/21 04:00 Pulse 59 L 02/02/21 07:00 Resp 20 02/02/21 07:00 BP 109/53 02/02/21 07:00 Pulse Ox 98 02/02/21 07:00 Intake & Output 02/01/21 02/02/21 02/02/21 18:59 06:59 18:59 Intake Total 281.094 3632.920 81.038 Output Total 0 0 0 Balance 764.219 1685.920 81.038 Weight 103.6 kg Intake: IV 320 320 10 0.9 @ 10ml/hr 120 120 10 Piperacillin-Tazobactam 3 100 100 .375 gm In Sodium Chloride 0.9% 100 ml @ 25 mls/hr IVPB Q12HR [facility] Rx #:[id number] levETIRAcetam IV 500 mg 100 100 In Sodium Chloride 0.9% 100 ml @ 400 mls/hr IVPB Q12HR [facility] Rx#:[id number] Intake, IV Titration 145.289 227.920 32.038 Amount propofoL 1,000 mg In 145.289 227.920 32.038 Empty Bag 1 bag @ Titrate IV .Q0M [facility] Rx#: [id number] Tube Feeding 378 458 39 Other 90 90 Output: Urine 0 0 0 Other: Voiding Method Incontinent Incontinent # Voids 1 0 ABP, PAP, CO, CI - Last Documented Arterial Blood Pressure 128/49 - Labs CBC & Chem 7: 02/02/21 03:35 02/02/21 03:35 Labs: Abnormal Lab Results - Last 24 Hours (Table) 02/01/21 02/01/21 02/01/21 Range/Units 04:10 11:22 17:13 RBC (3.80-5.40) m/uL Hgb (11.4-16.0) gm/dL Hct (34.0-46.0) % RDW (11.5-15.5) % Fibrinogen (200-500) mg/dL D-Dimer (<0.60) mg/L FEU ABG pO2 (83-108) mmHg ABG HCO3 (21-25) mmol/L ABG Total CO2 (19-24) mmol/L BUN (7-17) mg/dL Creatinine (0.52-1.04) mg/dL Glucose (74-99) mg/dL POC Glucose (mg/dL) 245 H 282 H (75-99) mg/dL Calcium (8.4-10.2) mg/dL Alkaline Phosphatase (38-126) U/L C-Reactive Protein (<10.0) mg/L Total Protein (6.3-8.2) g/dL Albumin (3.5-5.0) g/dL Procalcitonin 58.51 H (0.02-0.09) ng/mL 02/02/21 02/02/21 02/02/21 Range/Units 00:07 03:35 03:35 RBC 2.64 L (3.80-5.40) m/uL Hgb 8.1 L (11.4-16.0) gm/dL Hct 26.1 L (34.0-46.0) % RDW 17.5 H (11.5-15.5) % Fibrinogen (200-500) mg/dL D-Dimer (<0.60) mg/L FEU ABG pO2 (83-108) mmHg ABG HCO3 (21-25) mmol/L ABG Total CO2 (19-24) mmol/L BUN 35 H (7-17) mg/dL Creatinine 4.78 H (0.52-1.04) mg/dL Glucose 204 H (74-99) mg/dL POC Glucose (mg/dL) 259 H (75-99) mg/dL Calcium 8.2 L (8.4-10.2) mg/dL Alkaline Phosphatase 174 H (38-126) U/L C-Reactive Protein 132.3 H (<10.0) mg/L Total Protein 5.7 L (6.3-8.2) g/dL Albumin 2.7 L (3.5-5.0) g/dL Procalcitonin (0.02-0.09) ng/mL 02/02/21 02/02/21 02/02/21 Range/Units 03:35 05:18 05:56 RBC (3.80-5.40) m/uL Hgb (11.4-16.0) gm/dL Hct (34.0-46.0) % RDW (11.5-15.5) % Fibrinogen 666 H (200-500) mg/dL D-Dimer 4.12 H (<0.60) mg/L FEU ABG pO2 77 L (83-108) mmHg ABG HCO3 27 H (21-25) mmol/L ABG Total CO2 29 H (19-24) mmol/L BUN (7-17) mg/dL Creatinine (0.52-1.04) mg/dL Glucose (74-99) mg/dL POC Glucose (mg/dL) 205 H (75-99) mg/dL Calcium (8.4-10.2) mg/dL Alkaline Phosphatase (38-126) U/L C-Reactive Protein (<10.0) mg/L Total Protein (6.3-8.2) g/dL Albumin (3.5-5.0) g/dL Procalcitonin (0.02-0.09) ng/mL Assessment and Plan Assessment: Assessment #1 cardiopulmonary arrest #2 prolonged QT #3 history of ventricular tachycardia #4 hypoxic respiratory failure #5 possible anoxic brain injury Plan #1 continue the current medical regimen #2 continue monitoring the QT interval #3 avoid any medication can potentially prolonged QT #4 follow-up with the patient #5 rule out severe ischemic etiology like coronary artery disease
[2021-02-02 11:28] LABS: Glucose,Whole Blood 132 mg/dL (75-99)
[2021-02-02 11:38] LABS: Glucose,Whole Blood 139 mg/dL (75-99)
--- NOTE | 2021-02-02 12:29 | P.PN ---
Subjective Progress Note Date: 02/02/21 Principal diagnosis: Acute hypoxemic respiratory failure. This is a 65-year-old female with history of multiple medical problems, known to have end-stage renal disease, on hemodialysis, type 2 diabetes, coronary artery disease, cardiogenic in the form of ventricular tachycardia, patient had had hemodialysis yesterday, and she went home felt nauseated, while at home the patient had a sudden cardiac arrest at 1310. Family initiated CPR according to EMS, fire department arrived to the scene and found the patient to be unresponsive, in ventricular fibrillation. She was defibrillated, and CPR was continued. Patient received epinephrine, and after the second the defibrillat ion, there was return of spontaneous circulation. Down time was in the range of 20 minutes. Patient was brought into the emergency room, kept on mechanical ventilation, she was hemodynamically stable not requiring any pressors. Transferred to the ICU, and I was asked to see her on consultation. The major concern at this point is the fact that the patient had a prolonged downtime, and she most likely sustained anoxic brain injury. Hence a neurological consultation was initiated on this patient. I discontinued all her sedation and we will arrange for neurological consultation. Ventilator oreilly the patient is on assist control rate of 14, volume 350 FiO2 went down from 60% to 45%, ABG crow wed a pO2 of 130 pCO2 of 36 pH of 7.52. All this information was obtained from the chart, no family members available at bedside Patient was reevaluated today on 01/30/2021, remains in the ICU, intubated and mechanically ventilated. Her ventilator settings are assist control rate of 14 tidal volume of 350 FiO2 is 50% PEEP of 5. Patient remains on propofol at 30 mcg/kg/m, remains on antibiotics for her cellulitis she is on Zosyn. Patient is only withdrawing to painful stimuli, but no purposeful movement. She was seen by neurology on consultation, and neurology feels that the patient has anoxic brain injury from prolonged cardiac arrest along with metabolic encephalopathy. In addition to all of this she has underlying covid 19 pneumonia. In addition to this, the patient has history of end-stage renal disease on hemodialysis, she also had history of DVT maintained on all across, and history of peripheral neuropathy. Labs today showed a pO2 of 123 pCO2 of 42 pH of 7.47 her WBC count is 11.9 hemoglobin is 8.6. BUN is 27 creatinine is 4.63. On 01/31/2002, patient's follow-up in the intensive care unit, she remains intubated, sedated, currently on assist control with a rate of 14, tidal volumes 350, FiO2 of 50%, and PEEP of 5, this morning's blood gases show pO2 146, pCO2 44, and pH of 7.39 and subsequently FiO2 was dropped down to 40%, currently on 0.9 ns at 10 ML per hour, Diprivan is at 20 mics per kilo per minute, no other drips, nutritional support in the form of vital high protein at 30, with a goal of 39. Patient is currently receiving hemodialysis treatment, patient is a chronic hemodialysis patient on the Sunday schedule. Patient apparently failed daily interruption of sedation, has not been following purposeful commands, she is only withdrawing to painful stimuli, there is no purposeful movement. Patient has been seen in consultation by neurology and followed by neurology and there is a possibility of anoxic brain injury from prolonged cardiac arrest along with metabolic encephalopathy. Patient tested positive for COVID 19 this admission. Chest x-ray today shows diffuse interstitial densities. Brain CT showed no acute intracranial process. EEG on 2020 showed background slowing suggestive of moderate encephalopathy, with no focal slowing, epileptiform discharge or seizures. Patient is receiving Keppra. Patient is on empiric antibiotics in the form of Zosyn. She is on Eliquis at 2.5 mg twice daily previous history of DVT, and possible paroxysmal A. fib. Cardiology is following in regards to V. fib arrest, there has been no further arrhythmias overnight On 02/01/2021 patient is seen in follow-up in the intensive care unit, patient remains sedated, intubated on assist control mode of ventilation with a rate of 14, tidal significant, FiO2 of 40% and PEEP of 5, his blood gases show pO2 of 85, pCO2 43 pH is 7.43. Today's chest x-ray shows stable left lower lobe infiltrate. FiO2 is 40%. No acute events overnight. Patient receiving initiation of support informal vital high protein at 39 with a goal of 39 ML per hour. EEG was done on 01/30/2021, showing abnormal routine EEG, with background slowing suggestive of moderate encephalopathy due to toxic metabolic disturbance. There was no focal slowing or epileptiform discharge or seizure. Patient continues on Keppra. Neurology is following. There has been no recurrence of arrhythmia, cartiology is following. Patient is on Eliquis for paroxysmal atrial fibrillation Progress note dated 02/02/2021. This is a 65-year-old female, again seen here in the intensive care unit. She currently is on propofol at 20 mcg/kg/m, and vital high protein at 39 mL an hour, which is goal. She remains on the mechanical ventilator, on the assist control mode, rate of 14, tidal volume 350, FiO2 40%, and PEEP of 5. Blood gases show a PaO2 of 77, PaCO2 43, and a pH is 7.4. We will do a daily interruption of sedation today. Current white count 8.2, hemoglobin 8.1, hematocrit 26.1, and platelet count 295,000. Her d-dimer is 4.12. Sodium 139, potassium 3.9, chlorides 103, CO2 26, anion gap 10, the 135, and creatinine 4.78. Microbiology is negative. Chest x-ray shows bilateral scattered infiltrates, left lower lobe atelectasis. Objective - Vital Signs Vital signs: Vital Signs Temp 97.6 F 02/02/21 08:00 Pulse 71 02/02/21 10:00 Resp 24 02/02/21 10:00 BP 109/53 02/02/21 07:00 Pulse Ox 99 02/02/21 10:00 Intake & Output 02/01/21 02/02/21 02/02/21 18:59 06:59 18:59 Intake Total 440.848 9604.920 458.038 Output Total 0 0 0 Balance 870.415 8624.920 458.038 Weight 103.6 kg Intake: IV 320 320 240 0.9 @ 10ml/hr 120 120 40 Piperacillin-Tazobactam 3 100 100 100 .375 gm In Sodium Chloride 0.9% 100 ml @ 25 mls/hr IVPB Q12HR [facility] Rx #:[id number] levETIRAcetam IV 500 mg 100 100 100 In Sodium Chloride 0.9% 100 ml @ 400 mls/hr IVPB Q12HR [facility] Rx#:[id number] Intake, IV Titration 145.289 227.920 32.038 Amount propofoL 1,000 mg In 145.289 227.920 32.038 Empty Bag 1 bag @ Titrate IV .Q0M [facility] Rx#: [id number] Tube Feeding 378 458 156 Other 90 90 30 Output: Urine 0 0 0 Other: Voiding Method Incontinent Incontinent # Voids 1 0 ABP, PAP, CO, CI - Last Documented Arterial Blood Pressure 184/73 - Exam Currently sedated, intubated, and mechanically ventilated. HEENT examination is grossly unremarkable. Neck supple. Full range of motion. No adenopathy thyromegaly or neck vein distention. Cardiovascular examination reveals regular rhythm rate. S1-S2 normal. No S3 or S4. No discernible murmur noted. Heart rate 67 bpm. Heart sounds are distant. Lungs reveal diffuse bilateral rhonchi and crackles. There are no wheezes. Abdomen soft bowel sounds are heard. No masses or tenderness. Extremities are intact. No cyanosis or clubbing. There is bilateral lower extremity edema. Skin is without rash or lesion. Neurologic examination could not be assessed as the patient's currently on propofol. - Labs CBC & Chem 7: 02/02/21 03:35 02/02/21 03:35 Labs: Abnormal Lab Results - Last 24 Hours (Table) 02/01/21 02/01/21 02/02/21 Range/Units 04:10 17:13 00:07 RBC (3.80-5.40) m/uL Hgb (11.4-16.0) gm/dL Hct (34.0-46.0) % RDW (11.5-15.5) % Fibrinogen (200-500) mg/dL D-Dimer (<0.60) mg/L FEU ABG pO2 (83-108) mmHg ABG HCO3 (21-25) mmol/L ABG Total CO2 (19-24) mmol/L BUN (7-17) mg/dL Creatinine (0.52-1.04) mg/dL Glucose (74-99) mg/dL POC Glucose (mg/dL) 282 H 259 H (75-99) mg/dL Calcium (8.4-10.2) mg/dL Alkaline Phosphatase (38-126) U/L C-Reactive Protein (<10.0) mg/L Total Protein (6.3-8.2) g/dL Albumin (3.5-5.0) g/dL Procalcitonin 58.51 H (0.02-0.09) ng/mL 02/02/21 02/02/21 02/02/21 Range/Units 03:35 03:35 03:35 RBC 2.64 L (3.80-5.40) m/uL Hgb 8.1 L (11.4-16.0) gm/dL Hct 26.1 L (34.0-46.0) % RDW 17.5 H (11.5-15.5) % Fibrinogen 666 H (200-500) mg/dL D-Dimer 4.12 H (<0.60) mg/L FEU ABG pO2 (83-108) mmHg ABG HCO3 (21-25) mmol/L ABG Total CO2 (19-24) mmol/L BUN 35 H (7-17) mg/dL Creatinine 4.78 H (0.52-1.04) mg/dL Glucose 204 H (74-99) mg/dL POC Glucose (mg/dL) (75-99) mg/dL Calcium 8.2 L (8.4-10.2) mg/dL Alkaline Phosphatase 174 H (38-126) U/L C-Reactive Protein 132.3 H (<10.0) mg/L Total Protein 5.7 L (6.3-8.2) g/dL Albumin 2.7 L (3.5-5.0) g/dL Procalcitonin (0.02-0.09) ng/mL 02/02/21 02/02/21 02/02/21 Range/Units 05:18 05:56 11:27 RBC (3.80-5.40) m/uL Hgb (11.4-16.0) gm/dL Hct (34.0-46.0) % RDW (11.5-15.5) % Fibrinogen (200-500) mg/dL D-Dimer (<0.60) mg/L FEU ABG pO2 77 L (83-108) mmHg ABG HCO3 27 H (21-25) mmol/L ABG Total CO2 29 H (19-24) mmol/L BUN (7-17) mg/dL Creatinine (0.52-1.04) mg/dL Glucose (74-99) mg/dL POC Glucose (mg/dL) 205 H 132 H (75-99) mg/dL Calcium (8.4-10.2) mg/dL Alkaline Phosphatase (38-126) U/L C-Reactive Protein (<10.0) mg/L Total Protein (6.3-8.2) g/dL Albumin (3.5-5.0) g/dL Procalcitonin (0.02-0.09) ng/mL 02/02/21 Range/Units 11:37 RBC (3.80-5.40) m/uL Hgb (11.4-16.0) gm/dL Hct (34.0-46.0) % RDW (11.5-15.5) % Fibrinogen (200-500) mg/dL D-Dimer (<0.60) mg/L FEU ABG pO2 (83-108) mmHg ABG HCO3 (21-25) mmol/L ABG Total CO2 (19-24) mmol/L BUN (7-17) mg/dL Creatinine (0.52-1.04) mg/dL Glucose (74-99) mg/dL POC Glucose (mg/dL) 139 H (75-99) mg/dL Calcium (8.4-10.2) mg/dL Alkaline Phosphatase (38-126) U/L C-Reactive Protein (<10.0) mg/L Total Protein (6.3-8.2) g/dL Albumin (3.5-5.0) g/dL Procalcitonin (0.02-0.09) ng/mL Assessment and Plan Assessment: Cardiac arrest most likely secondary to cardiac arrhythmia initial rhythm was ventricular fibrillation upon EMS arrival. Acute hypoxic respiratory failure secondary to above. Bilateral interstitial edema most likely secondary to end-stage renal disease and suspect acute systolic congestive heart failure, likely ischemic in nature. Cardiac workup is pending. Strongly suspect anoxic brain injury and metabolic encephalopathy secondary to cardiac arrest. Type 2 diabetes. Benign essential hypertension. end stage renal disease on hemodialysis. History of carotid artery disease. History of DVT been maintained on all across. History of diabetic peripheral neuropathy. History of cardiac arrhythmia requiring cardiac ablation. Chronic lymphedema and cellulitis of both lower extremities. History of irritable bowel syndrome. History of covid 19 infection in October of 2020 Possible right paratracheal hematoma from attempted central line placement, CT of the chest was ordered. Plan: Plan dated 02/02/2021. The patient will have a daily eruption of sedation today. We will hopefully attempt a spontaneous breathing trial. Currently, the patient is oxygenating well. She is receiving enteral nutrition. Chest x-ray, labs, and medications a re all reviewed. Additional recommendations suggestions are forthcoming. Prognosis is guarded. The patient does have 3 day a week hemodialysis. Time with Patient: Greater than 30
[2021-02-02] MEDS: levETIRAcetam 500 MG TAB PO SCH (12:35)
--- NOTE | 2021-02-02 14:41 | P.PN ---
Subjective Progress Note Date: 02/02/21 02/02/2021: Patient essentially unchanged. Per nursing report, propofol was discontinued for about 1-1/2 hours. The vent kept on alarming while the sedation was discontinued. She started coughing and gagging and blood pressure went up. There was no meaningful response noted. Now back on propofol 20 g. 02/01/2021: Patient was seen for a follow-up at 12:30 PM. Patient sedation was discontinued at 11:30 AM. I saw her almost one hour after she was off sedation. Patient continued to be comatose, not responding to any internal or external stimuli. No seizure-like activity noted. Patient apparently started biting on the ET tube, started to bite on her tongue. Fortunately she did not bite her tongue, as propofol was resumed and the tongue was gently pushed inside. 01/31/2021: Patient is a 65-year-old female came to the hospital on 01/28/2021 at 2:07 PM after a cardiac arrest with the downtime of 25 minutes. Patient had undergone hemodialysis in the morning, then for errands with her , came back home and had mentioned that she was not feeling well, vomited before she collapsed and had cardiac arrest. Patient's family started CPR before EMS arrived. Patient was shocked twice, appendectomy was given once and was intubated. Patient currently on propofol 20 g. Patient was initially seen by Dr. Lenny Fernandez. Please refer to his note for details. Patient has developed encephalopathy probably multifactorial due to anoxic brain injury from prolonged cardiac arrest, component of metabolic encephalopathy with uncontrolled diabetes, hypotension, underlying pneumonia from Covid. Patient also has history of end-stage renal disease on hemodialysis. Patient had an EEG performed yesterday, which revealed background slowing suggestive of moderate encephalopathy. The bilateral frontal intermittent rhythmic delta activity is due to toxic metabolic disturbance or structural lesion. No epileptiform activity was seen. Patient's background has improved as compared to the EEG from the day prior for 01/15/2021. Patient's blood test shows WBC 10.3 hemoglobin 8.0, platelets 328. Sodium 130 potassium 4.4, BUN 33, creatinine 6.32. Hepatic panel normal. CT head from 01/31/2021 shows no acute process. Per nursing report, when sedation is decreased, patient starts biting on the ET tube and her breathing becomes fast. CT head reported as no acute process per radiology report from 01/31/2021. Although on my review, there is evidence of generalized cerebral edema, somewhat with effacement of the sulci as compared to the computed tomography scan from 01/29/2021. Objective - Vital Signs Vital signs: Vital Signs Temp 97.3 F L 02/02/21 13:05 Pulse 64 02/02/21 14:00 Resp 20 02/02/21 14:00 BP 183/78 02/02/21 13:05 Pulse Ox 100 02/02/21 14:00 Intake & Output 02/01/21 02/02/21 02/02/21 18:59 06:59 18:59 Intake Total 586.284 1134.920 684.038 Output Total 0 0 3000 Balance 125.944 3362.920 -2315.962 Weight 103.6 kg Intake: IV 320 320 280 0.9 @ 10ml/hr 120 120 80 Piperacillin-Tazobactam 3 100 100 100 .375 gm In Sodium Chloride 0.9% 100 ml @ 25 mls/hr IVPB Q12HR [facility] Rx #:[id number] levETIRAcetam IV 500 mg 100 100 100 In Sodium Chloride 0.9% 100 ml @ 400 mls/hr IVPB Q12HR [facility] Rx#:[id number] Intake, IV Titration 145.289 227.920 32.038 Amount propofoL 1,000 mg In 145.289 227.920 32.038 Empty Bag 1 bag @ Titrate IV .Q0M [facility] Rx#: [id number] Tube Feeding 378 458 312 Other 90 90 60 Output: Urine 0 0 0 Hemodialysis 3000 Other: Voiding Method Incontinent Incontinent # Voids 1 0 ABP, PAP, CO, CI - Last Documented Arterial Blood Pressure 182/86 - Exam On examination patient is an elderly female, who is unresponsive, comatose. Patient does not respond to calling her name, or with noxious stimuli with nailbed pressure involving all 4 extremities, no grimacing or any movement of the extremities. Pupils are round, not clearly reactive. Oculocephalics are absent. Corneals are slightly present. Plantars are flat. Patient is peripheral edema. No obvious seizure activity noted. - Labs CBC & Chem 7: 02/02/21 03:35 02/02/21 03:35 Labs: Abnormal Lab Results - Last 24 Hours (Table) 02/01/21 02/01/21 02/02/21 Range/Units 04:10 17:13 00:07 RBC (3.80-5.40) m/uL Hgb (11.4-16.0) gm/dL Hct (34.0-46.0) % RDW (11.5-15.5) % Fibrinogen (200-500) mg/dL D-Dimer (<0.60) mg/L FEU ABG pO2 (83-108) mmHg ABG HCO3 (21-25) mmol/L ABG Total CO2 (19-24) mmol/L BUN (7-17) mg/dL Creatinine (0.52-1.04) mg/dL Glucose (74-99) mg/dL POC Glucose (mg/dL) 282 H 259 H (75-99) mg/dL Calcium (8.4-10.2) mg/dL Alkaline Phosphatase (38-126) U/L C-Reactive Protein (<10.0) mg/L Total Protein (6.3-8.2) g/dL Albumin (3.5-5.0) g/dL Procalcitonin 58.51 H (0.02-0.09) ng/mL 02/02/21 02/02/21 02/02/21 Range/Units 03:35 03:35 03:35 RBC 2.64 L (3.80-5.40) m/uL Hgb 8.1 L (11.4-16.0) gm/dL Hct 26.1 L (34.0-46.0) % RDW 17.5 H (11.5-15.5) % Fibrinogen 666 H (200-500) mg/dL D-Dimer 4.12 H (<0.60) mg/L FEU ABG pO2 (83-108) mmHg ABG HCO3 (21-25) mmol/L ABG Total CO2 (19-24) mmol/L BUN 35 H (7-17) mg/dL Creatinine 4.78 H (0.52-1.04) mg/dL Glucose 204 H (74-99) mg/dL POC Glucose (mg/dL) (75-99) mg/dL Calcium 8.2 L (8.4-10.2) mg/dL Alkaline Phosphatase 174 H (38-126) U/L C-Reactive Protein 132.3 H (<10.0) mg/L Total Protein 5.7 L (6.3-8.2) g/dL Albumin 2.7 L (3.5-5.0) g/dL Procalcitonin (0.02-0.09) ng/mL 02/02/21 02/02/21 02/02/21 Range/Units 05:18 05:56 11:27 RBC (3.80-5.40) m/uL Hgb (11.4-16.0) gm/dL Hct (34.0-46.0) % RDW (11.5-15.5) % Fibrinogen (200-500) mg/dL D-Dimer (<0.60) mg/L FEU ABG pO2 77 L (83-108) mmHg ABG HCO3 27 H (21-25) mmol/L ABG Total CO2 29 H (19-24) mmol/L BUN (7-17) mg/dL Creatinine (0.52-1.04) mg/dL Glucose (74-99) mg/dL POC Glucose (mg/dL) 205 H 132 H (75-99) mg/dL Calcium (8.4-10.2) mg/dL Alkaline Phosphatase (38-126) U/L C-Reactive Protein (<10.0) mg/L Total Protein (6.3-8.2) g/dL Albumin (3.5-5.0) g/dL Procalcitonin (0.02-0.09) ng/mL 02/02/21 Range/Units 11:37 RBC (3.80-5.40) m/uL Hgb (11.4-16.0) gm/dL Hct (34.0-46.0) % RDW (11.5-15.5) % Fibrinogen (200-500) mg/dL D-Dimer (<0.60) mg/L FEU ABG pO2 (83-108) mmHg ABG HCO3 (21-25) mmol/L ABG Total CO2 (19-24) mmol/L BUN (7-17) mg/dL Creatinine (0.52-1.04) mg/dL Glucose (74-99) mg/dL POC Glucose (mg/dL) 139 H (75-99) mg/dL Calcium (8.4-10.2) mg/dL Alkaline Phosphatase (38-126) U/L C-Reactive Protein (<10.0) mg/L Total Protein (6.3-8.2) g/dL Albumin (3.5-5.0) g/dL Procalcitonin (0.02-0.09) ng/mL Assessment and Plan Assessment: * Status post cardiac arrest with anoxic encephalopathy. * Probable superimposed component of metabolic encephalopathy. * End-stage renal disease on hemodialysis. * Acute Covid-19 related pneumonia. Plan: * Patient clinically is no better 120 hours post cardiac arrest. Patient continues to be comatose. * Patient computed tomography scan of the head from 01/31/2021 shows mild generalized cerebral edema, with slight effacement of the sulci, as per my review, although the radiologist reported normal. * Prognosis appears very guarded to poor for meaningful recovery at this time based upon lack of significant clinical improvement, and also multiple comorbid conditions. * EEG canceled, as it will not change the management. She already had 2 EEGs performed in the past. She is not showing any signs of seizure. * Consider crack and PEG placement, if family wishes to continue full medical care. * Continue present management and supportive care.
[2021-02-02] MEDS: CLEVIDIPINE BUTYRATE 25 MG in EMPTY BAG 1 BAG IV SCH (15:46)
--- NOTE | 2021-02-02 16:05 | P.PN ---
Subjective Patient is a pleasant 65-year-old the female was discharged from my service yesterday after she was treated for encephalopathy related to hypoglycemia. Patient had a cardiorespiratory arrest was pretty functional ambulate and go shopping at the time when she had a cardiorespiratory arrest, CPR was started and patient was later found to have went to her tachycardia, patient returned to sinus rhythm and 25 minutes subsequently was intubated and brought to emergency department. Patient did have history of ventricular tachycardia in the past pa tient was started on amiodarone at that time. Patient does have medical multiple medical problems including end-stage renal disease dialysis dependent chest x-ray showing significant infiltrate in the right lung mostly appears to be volume overload patient does have low-grade fever which can be secondary to cardiorespiratory arrest but patient was empirically started on Zosyn and patient is being admitted to ICU patient is presently intubated with FiO2 of 100% PEEP of 5 patient is breathing over the ventilator patient is on assist- control/volume controlled ventilation, on propofol patient does have conjunctival and corneal reflexes, does have gag reflex. No significant electrolyte abnormalities were appreciated. 01/29/2021 Patient is on ventilator support patient the doesn't have any significant response in after discontinue additional of sedation for about 4 hours. Patient was evaluated by multiple consultants including neurology patient had an EEG to assess for the brain function because of significant anoxic brain injury, patient has significant background slowing slowing encephalopathy. Patient still has brainstem reflexes that were described above. Patient had an echo Wh ich showed normal ejection fraction and grade 1 diastolic dysfunction. 01/30/2021 Patient was started back on propofol as patient is not tolerating ventilator patient remains on ventilatory support . Patient will undergo he hemodialysis tomorrow. Patient is on cisatracurium as well. Patient is undergoing repeat EEG to assess the brain function patient still has ranged stem reflexes at this time. 01/31/2021 Patient remains in intensity and neck done ventilatory support. Patient had a repeat EEG which she appeared to be bit better. Patient does have corneal reflex but doesn't have any conjunctival reflux, patient does have cough reflex biting on the ventilator. Patient remains on the propofol drip and patient neurological assessment it to be done off sedation although patient doesn't appear to be tolerating off sedation. Patient had dialysis today. 02/01/2021 Patient's sedation is being turned off at this time patient will be evaluated or sedation by neurology. Patient has sluggish are absent pupillary reflexes patient is still barely breathing over the ventilator at this time. Chest x-ray showing left lower lobe infiltrate today patient is on the NG tube feedings patient can use to be on Keppra prophylactically there is focal slowing on the EEG without any epileptiform discharges 02/02/2021 Patient is on sedation no symptom response patient has a corneal reflex but no conjunctival reflux patient does have some gag reflex as well although not responding. Patient was evaluated by neurology patient apparently had significant edema on the CT of the head that was done on january. Aspirin neurology chance of reasonable recovery is low and discussed with neurology and probably call family to discuss overall goals of care including comfort care terminal wean. Review of systems: Unable to obtain as patient is intubated All inpatient medications were reviewed and appropriate changes in these medications as dictated in the interval history and assessment and plan. Objective - Vital Signs Vital signs: Vital Signs Temp 97.3 F L 02/02/21 13:05 Pulse 64 02/02/21 14:00 Resp 20 02/02/21 14:00 BP 183/78 02/02/21 13:05 Pulse Ox 100 02/02/21 14:00 Intake & Output 02/01/21 02/02/21 02/02/21 18:59 06:59 18:59 Intake Total 753.516 6823.920 684.405 Output Total 0 0 3000 Balance 571.055 9094.920 -2315.595 Weight 103.6 kg Intake: IV 320 320 280 0.9 @ 10ml/hr 120 120 80 Piperacillin-Tazobactam 3 100 100 100 .375 gm In Sodium Chloride 0.9% 100 ml @ 25 mls/hr IVPB Q12HR [facility] Rx #:[id number] levETIRAcetam IV 500 mg 100 100 100 In Sodium Chloride 0.9% 100 ml @ 400 mls/hr IVPB Q12HR EL[facility] Rx#:[id number] Intake, IV Titration 145.289 227.920 32.405 Amount Clevidipine Butyrate 25 0.367 mg In Empty Bag 1 bag @ 1 MG/HR 2 mls/hr IV .Q24H EL[facility] Rx#:[id number] propofoL 1,000 mg In 145.289 227.920 32.038 Empty Bag 1 bag @ Titrate IV .Q0M ELIF Rx#: [id number] Tube Feeding 378 458 312 Other 90 90 60 Output: Urine 0 0 0 Hemodialysis 3000 Other: Voiding Method Incontinent Incontinent # Voids 1 0 ABP, PAP, CO, CI - Last Documented Arterial Blood Pressure 182/86 - Exam PHYSICAL EXAMINATION: GENERAL: Patient is intubated sedated, does have an NG tube with some bloody drainage from the NG tube. Patient has a central line and arterial line HEENT: Pupils are round and and constricted at this time because of propofol. EOMI. No scleral icterus. No conjunctival pallor. Normocephalic, atraumatic. No pharyngeal erythema. No thyromegaly. CARDIOVASCULAR: S1 and S2 present. No murmurs, rubs, or gallops. PULMONARY: Chest is clear to auscultation, no wheezing or crackles. ABDOMEN: Soft, nontender, nondistended, normoactive bowel sounds. No palpable organomegaly. MUSCULOSKELETAL: No joint swelling or deformity. EXTREMITIES: No cyanosis, clubbing, bilateral pedal edema which is actually better compared to yesterday when I discharged patient. NEUROLOGICAL: Intubated sedated but does have brainstem reflexes SKIN: Stage I and 2 ulcers which doesn't appear to be infected - Labs CBC & Chem 7: 02/02/21 03:35 02/02/21 03:35 Labs: Abnormal Lab Results - Last 24 Hours (Table) 02/01/21 02/01/21 02/02/21 Range/Units 04:10 17:13 00:07 RBC (3.80-5.40) m/uL Hgb (11.4-16.0) gm/dL Hct (34.0-46.0) % RDW (11.5-15.5) % Fibrinogen (200-500) mg/dL D-Dimer (<0.60) mg/L FEU ABG pO2 (83-108) mmHg ABG HCO3 (21-25) mmol/L ABG Total CO2 (19-24) mmol/L BUN (7-17) mg/dL Creatinine (0.52-1.04) mg/dL Glucose (74-99) mg/dL POC Glucose (mg/dL) 282 H 259 H (75-99) mg/dL Calcium (8.4-10.2) mg/dL Alkaline Phosphatase (38-126) U/L C-Reactive Protein (<10.0) mg/L Total Protein (6.3-8.2) g/dL Albumin (3.5-5.0) g/dL Procalcitonin 58.51 H (0.02-0.09) ng/mL 02/02/21 02/02/21 02/02/21 Range/Units 03:35 03:35 03:35 RBC 2.64 L (3.80-5.40) m/uL Hgb 8.1 L (11.4-16.0) gm/dL Hct 26.1 L (34.0-46.0) % RDW 17.5 H (11.5-15.5) % Fibrinogen 666 H (200-500) mg/dL D-Dimer 4.12 H (<0.60) mg/L FEU ABG pO2 (83-108) mmHg ABG HCO3 (21-25) mmol/L ABG Total CO2 (19-24) mmol/L BUN 35 H (7-17) mg/dL Creatinine 4.78 H (0.52-1.04) mg/dL Glucose 204 H (74-99) mg/dL POC Glucose (mg/dL) (75-99) mg/dL Calcium 8.2 L (8.4-10.2) mg/dL Alkaline Phosphatase 174 H (38-126) U/L C-Reactive Protein 132.3 H (<10.0) mg/L Total Protein 5.7 L (6.3-8.2) g/dL Albumin 2.7 L (3.5-5.0) g/dL Procalcitonin (0.02-0.09) ng/mL 02/02/21 02/02/21 02/02/21 Range/Units 05:18 05:56 11:27 RBC (3.80-5.40) m/uL Hgb (11.4-16.0) gm/dL Hct (34.0-46.0) % RDW (11.5-15.5) % Fibrinogen (200-500) mg/dL D-Dimer (<0.60) mg/L FEU ABG pO2 77 L (83-108) mmHg ABG HCO3 27 H (21-25) mmol/L ABG Total CO2 29 H (19-24) mmol/L BUN (7-17) mg/dL Creatinine (0.52-1.04) mg/dL Glucose (74-99) mg/dL POC Glucose (mg/dL) 205 H 132 H (75-99) mg/dL Calcium (8.4-10.2) mg/dL Alkaline Phosphatase (38-126) U/L C-Reactive Protein (<10.0) mg/L Total Protein (6.3-8.2) g/dL Albumin (3.5-5.0) g/dL Procalcitonin (0.02-0.09) ng/mL 02/02/21 Range/Units 11:37 RBC (3.80-5.40) m/uL Hgb (11.4-16.0) gm/dL Hct (34.0-46.0) % RDW (11.5-15.5) % Fibrinogen (200-500) mg/dL D-Dimer (<0.60) mg/L FEU ABG pO2 (83-108) mmHg ABG HCO3 (21-25) mmol/L ABG Total CO2 (19-24) mmol/L BUN (7-17) mg/dL Creatinine (0.52-1.04) mg/dL Glucose (74-99) mg/dL POC Glucose (mg/dL) 139 H (75-99) mg/dL Calcium (8.4-10.2) mg/dL Alkaline Phosphatase (38-126) U/L C-Reactive Protein (<10.0) mg/L Total Protein (6.3-8.2) g/dL Albumin (3.5-5.0) g/dL Procalcitonin (0.02-0.09) ng/mL Assessment and Plan Plan: -Cardiorespiratory arrest leading to respiratory failure: Secondary to ventricular tachycardia patient was evaluated by cardiology echocardiogram as mentioned above . Repeat EEG showed some improvement in background slowing. Sedation was turned off without any significant improvement in her mental status, the chance of reasonable recovery because of her significant anoxic brain injury is low -Acute hypoxic respiratory failure leading to anoxic brain patient is undergoing repeat EEG but patient is presently on sedation. -Volume overload: Secondary to end-stage renal disease nephrology evaluated the patient. And had hemodialysis today -Fever: Most probably secondary to cardiorespiratory arrest blood cultures will be obtained chest x-ray findings are more consistent with volume overload that pneumonia patient is on Zosyn patient may have had aspiration as well -Recent covid 19 infection and month of October because of which I'm not repeating PCR for Covid -End-stage renal disease, dialysis dependent -Type 2 diabetes mellitus patient is on sliding scale will hold off on long- acting insulin history of DVT for which patient is on Eliquis -Hypertension -Diabetic peripheral neuropathy -bilateral lower extremity ulcers doesn't appear to have cellulitis but does have chronic lymphedema Patient prognosis is extremely poor, will discuss with the family regarding comfort care terminal wean
[2021-02-02 17:54] LABS: Glucose,Whole Blood 259 mg/dL (75-99)
--- NOTE | 2021-02-02 19:17 | PN ---
PROGRESS NOTE Patient is seen on hemodialysis. She remains obtunded and has not been waking up. Sedation was decreased yesterday however patient was biting involuntarily and therefore she was put back on sedation. This morning blood pressure has been on the higher side with systolic noted at about 138-160 mmHg. No significant edema noted in the lower extremities. The patient is sedated and on the vent. LABS: Labs reviewed, which shows sodium 139, potassium 3.9, BUN 35, creatinine 4.78, hemoglobin 8.1 g/dL. ASSESSMENT: 1. End-stage renal disease, on hemodialysis on a Sunday, Sunday, Sunday schedule. 2. Acute hypoxic respiratory failure. 3. Status post cardiac arrest. 4. Anoxic encephalopathy. 5. Acute COVID-19 pneumonia. PLAN: Hemodialysis today. There are plans on consideration of change in code status as there has not been any improvement in her mentation. MMODL / IJN: [id number] /
[2021-02-02] MEDS: amLODIPine 10 MG TAB PO SCH (21:37)
[2021-02-03 01:36] LABS: Glucose,Whole Blood 273 mg/dL (75-99)
[2021-02-03] MEDS: INSULIN ASPART (NovoLOG) 100 UNIT/ML VIAL SQ SCH ×4 (01:52→18:32)
[2021-02-03 02:43] LABS: Ferritin 2697.5 ng/mL (10.0-291.0)
[2021-02-03 04:13] LABS: Albumin 3.1 g/dL (3.5-5.0); Calcium 9.2 mg/dL (8.4-10.2); Potassium 4.2 mmol/L (3.5-5.1); Total Bilirubin 0.6 mg/dL (0.2-1.3); Total Protein 6.3 g/dL (6.3-8.2)
[2021-02-03 04:17] LABS: Anisocytosis Slight; Basophils % (A) 0 %; Eosinophils % (A) 0 %; HCT 27.9 % (34.0-46.0); HGB 8.6 gm/dL (11.4-16.0); Hypochromasia Marked; Lymphocytes # (A) 0.9 k/uL (1.0-4.8); Lymphocytes % (A) 10 %; MCH 30.5 pg (25.0-35.0); MCHC 30.9 g/dL (31.0-37.0); MCV 98.8 fL (80.0-100.0); Macrocytosis Slight; Mean Platelet Volume 7.8; Monocytes # (A) 0.3 k/uL (0-1.0); Monocytes % (A) 3 %; Neutrophils # (A) 8.4 k/uL (1.3-7.7); Neutrophils % (A) 87 %; Platelet Count 323 k/uL (150-450); RBC 2.82 m/uL (3.80-5.40); RDW 17.3 % (11.5-15.5); WBC 9.6 k/uL (3.8-10.6)
[2021-02-03 05:32] LABS: ABG Base Excess 3.4 mmol/L; ABG HCO3 28 mmol/L (21-25); ABG Oxygen Saturation 99.4 % (94-97); ABG PCO2 43 mmHg (35-45); ABG PH 7.42 (7.35-7.45); ABG PO2 129 mmHg (83-108); ABG TCO2 29 mmol/L (19-24)
[2021-02-03 05:53] LABS: Allen Test Performed? no
[2021-02-03 06:06] LABS: Glucose,Whole Blood 255 mg/dL (75-99)
--- NOTE | 2021-02-03 07:09 | XR ---
EXAMINATION TYPE: XR chest 1V portable DATE OF EXAM: 02/03/2021 COMPARISON: 02/02/2021 HISTORY: SOB, Follow Up FINDINGS: Indwelling tubes and catheters are unchanged. No change in bibasilar opacities. Stable appearance of the cardio-mediastinal structures at this time. Pleural effusion unchanged. IMPRESSION: 1. Stable portable chest. Clinical correlation and follow up until resolution is recommended.
[2021-02-03] MEDS: ALBUTEROL HFA INHALER INHALATION PRN ×5 (07:19→19:17)
--- NOTE | 2021-02-03 09:00 | CDI ---
Documentation Clarification Form Date: 02/03/2021 08:26:49 AM From: Sobeida Scott RN, CCDS Admit Date: 01/28/2021 03:20:00 PM Patient Name: Clarissa Lazar Visit Number: [id number] Discharge Date: ATTENTION: The Clinical Documentation Specialists (CDI) and [facility] Coding Staff appreciate your assistance in clarifying documentation. Please respond to the clarification below the line at the bottom and electronically sign. The CDI & [facility] Coding staff will review the response and follow-up if needed. Please note: Queries are made part of the Legal Health Record. If you have any questions, please contact the author of this message via ITS. Dr. Eduar Oliver There is documentation on 01/30/21 and subsequent progress notes of possible right paratracheal hematoma. Additional clarification is requested. History/Risk Factors: Cardiac arrest, CAD, ESRD on HD, Clinical Indicators: 01/28 present from home via EMS with cardiopulmonary arrest intubated by EMS. 01/30/21 procedure note/report. Attempt placement of a right subclavian and right internal jugular central venous catheter. Chest x-ray post these two trials of cannulating the right IJ or the right subclavian showed questionable right paratracheal soft tissue prominence and possible vascular injury. Treatment: 01/30/21 Ct of chest: Right paratracheal mediastinal density could relate to minimal hematoma Can you please clarify possible right paratracheal hematoma from attempted central line placement? [ ] Is minimal and no clinical significance [ ] Is ruled out [ ] Other, please specify [ ] Unable to determine (Template Last Revised: December 2020) MTDD
--- NOTE | 2021-02-03 09:01 | P.PN ---
Subjective Progress Note Date: 02/03/21 Principal diagnosis: Cardiopulmonary arrest This is a 65-year-old female patient with a past medical history significant for end stage renal disease on dialysis as well as history of ventricular tachycardia in the past as well as multiple comorbid conditions was admitted to the hospital with a cardiopulmonary arrest. The patient was seen today February 032020. She remains hemodynamically stable. She is on oral anticoagulation for the A. fib. From a cardiovascular standpo int of view, we'll continue the current medical regimen and follow-up with the patient on when necessary case Objective - Vital Signs Vital signs: Vital Signs Temp 97.6 F 02/03/21 04:00 Pulse 51 L 02/03/21 07:00 Resp 16 02/03/21 07:00 BP 155/66 02/03/21 04:30 Pulse Ox 98 02/03/21 07:00 Intake & Output 02/02/21 02/03/21 02/03/21 18:59 06:59 18:59 Intake Total 1001.780 969.984 49 Output Total 3000 0 Balance -1998.220 969.984 49 Intake: IV 320 320 10 0.9 @ 10ml/hr 120 120 10 Piperacillin-Tazobactam 3 100 100 .375 gm In Sodium Chloride 0.9% 100 ml @ 25 mls/hr IVPB Q12HR EL[facility] Rx #:[id number] levETIRAcetam IV 500 mg 100 100 In Sodium Chloride 0.9% 100 ml @ 400 mls/hr IVPB Q12HR ELIF Rx#:[id number] Intake, IV Titration 123.780 160.984 Amount Clevidipine Butyrate 25 0.367 27.133 mg In Empty Bag 1 bag @ 1 MG/HR 2 mls/hr IV .Q24H ELIF Rx#:[id number] propofoL 1,000 mg In 123.413 133.851 Empty Bag 1 bag @ Titrate IV .Q0M ELIF Rx#: [id number] Tube Feeding 468 429 39 Other 90 60 Output: Urine 0 0 Hemodialysis 3000 Other: # Voids 0 0 0 # Bowel Movements 1 ABP, PAP, CO, CI - Last Documented Arterial Blood Pressure 133/49 - Labs CBC & Chem 7: 02/03/21 03:35 02/03/21 03:35 Labs: Abnormal Lab Results - Last 24 Hours (Table) 02/02/21 02/02/21 02/02/21 Range/Units 03:35 11:27 11:37 RBC (3.80-5.40) m/uL Hgb (11.4-16.0) gm/dL Hct (34.0-46.0) % MCHC (31.0-37.0) g/dL RDW (11.5-15.5) % Neutrophils # (1.3-7.7) k/uL Lymphocytes # (1.0-4.8) k/uL ABG pO2 (83-108) mmHg ABG HCO3 (21-25) mmol/L ABG Total CO2 (19-24) mmol/L ABG O2 Saturation (94-97) % Sodium (137-145) mmol/L BUN (7-17) mg/dL Creatinine (0.52-1.04) mg/dL Glucose (74-99) mg/dL POC Glucose (mg/dL) 132 H 139 H (75-99) mg/dL Ferritin 2697.5 H (10.0-291.0) ng/mL Alkaline Phosphatase (38-126) U/L Albumin (3.5-5.0) g/dL 02/02/21 02/03/21 02/03/21 Range/Units 17:53 01:35 03:35 RBC 2.82 L (3.80-5.40) m/uL Hgb 8.6 L (11.4-16.0) gm/dL Hct 27.9 L (34.0-46.0) % MCHC 30.9 L (31.0-37.0) g/dL RDW 17.3 H (11.5-15.5) % Neutrophils # 8.4 H (1.3-7.7) k/uL Lymphocytes # 0.9 L (1.0-4.8) k/uL ABG pO2 (83-108) mmHg ABG HCO3 (21-25) mmol/L ABG Total CO2 (19-24) mmol/L ABG O2 Saturation (94-97) % Sodium (137-145) mmol/L BUN (7-17) mg/dL Creatinine (0.52-1.04) mg/dL Glucose (74-99) mg/dL POC Glucose (mg/dL) 259 H 273 H (75-99) mg/dL Ferritin (10.0-291.0) ng/mL Alkaline Phosphatase (38-126) U/L Albumin (3.5-5.0) g/dL 02/03/21 02/03/21 02/03/21 Range/Units 03:35 05:31 06:04 RBC (3.80-5.40) m/uL Hgb (11.4-16.0) gm/dL Hct (34.0-46.0) % MCHC (31.0-37.0) g/dL RDW (11.5-15.5) % Neutrophils # (1.3-7.7) k/uL Lymphocytes # (1.0-4.8) k/uL ABG pO2 129 H (83-108) mmHg ABG HCO3 28 H (21-25) mmol/L ABG Total CO2 29 H (19-24) mmol/L ABG O2 Saturation 99.4 H (94-97) % Sodium 134 L (137-145) mmol/L BUN 31 H (7-17) mg/dL Creatinine 3.46 H (0.52-1.04) mg/dL Glucose 247 H (74-99) mg/dL POC Glucose (mg/dL) 255 H (75-99) mg/dL Ferritin (10.0-291.0) ng/mL Alkaline Phosphatase 207 H (38-126) U/L Albumin 3.1 L (3.5-5.0) g/dL Assessment and Plan Assessment: Assessment #1 cardiopulmonary arrest #2 prolonged QT #3 history of ventricular tachycardia #4 hypoxic respiratory failure #5 possible anoxic brain injury Plan #1 continue the current medical regimen #2 continue monitoring the QT interval #3 avoid any medication can potentially prolonged QT #4 follow-up with the patient on when necessary case
[2021-02-03] MEDS: CALCIUM ACETATE 667 MG TAB PO SCH ×2 (09:16→18:29)
[2021-02-03] MEDS: CHLORHEXIDINE GLUCONATE 15 ML CUP MUCOUS MEM SCH ×2 (09:16→20:42)
[2021-02-03] MEDS: APIXABAN 2.5 MG TABLET PO SCH ×2 (09:16→20:42)
[2021-02-03] MEDS: ASPIRIN 81 MG PO SCH (09:17)
[2021-02-03] MEDS: CLEVIDIPINE BUTYRATE 25 MG in EMPTY BAG 1 BAG IV SCH (09:17)
[2021-02-03] MEDS: levETIRAcetam IV 500 MG in SODIUM CHLORIDE 0.9% 100 ML IVPB SCH ×2 (09:17→20:43)
[2021-02-03] MEDS: ZINC SULFATE 220 MG CAP PO SCH ×2 (09:17→20:42)
[2021-02-03] MEDS: DEXAMETHASONE SOD PHOSPHATE 10 MG/ML 1 ML VIAL IV SCH (09:18)
[2021-02-03] MEDS: PANTOPRAZOLE 40 MG/10 ML VIAL IVP SCH ×2 (09:18→20:43)
[2021-02-03] MEDS: PIPERACILLIN-TAZOBACTAM 3.375 GM in SODIUM CHLORIDE 0.9% 100 ML IVPB SCH ×2 (09:18→20:44)
--- NOTE | 2021-02-03 10:58 | P.PN ---
Subjective Progress Note Date: 02/03/21 Principal diagnosis: Acute hypoxemic respiratory failure. This is a 65-year-old female with history of multiple medical problems, known to have end-stage renal disease, on hemodialysis, type 2 diabetes, coronary artery disease, cardiogenic in the form of ventricular tachycardia, patient had had hemodialysis yesterday, and she went home felt nauseated, while at home the patient had a sudden cardiac arrest at 1310. Family initiated CPR according to EMS, fire department arrived to the scene and found the patient to be unresponsive, in ventricular fibrillation. She was defibrillated, and CPR was continued. Patient received epinephrine, and after the second the defibrillat ion, there was return of spontaneous circulation. Down time was in the range of 20 minutes. Patient was brought into the emergency room, kept on mechanical ventilation, she was hemodynamically stable not requiring any pressors. Transferred to the ICU, and I was asked to see her on consultation. The major concern at this point is the fact that the patient had a prolonged downtime, and she most likely sustained anoxic brain injury. Hence a neurological consultation was initiated on this patient. I discontinued all her sedation and we will arrange for neurological consultation. Ventilator oreilly the patient is on assist control rate of 14, volume 350 FiO2 went down from 60% to 45%, ABG crow wed a pO2 of 130 pCO2 of 36 pH of 7.52. All this information was obtained from the chart, no family members available at bedside Patient was reevaluated today on 01/30/2021, remains in the ICU, intubated and mechanically ventilated. Her ventilator settings are assist control rate of 14 tidal volume of 350 FiO2 is 50% PEEP of 5. Patient remains on propofol at 30 mcg/kg/m, remains on antibiotics for her cellulitis she is on Zosyn. Patient is only withdrawing to painful stimuli, but no purposeful movement. She was seen by neurology on consultation, and neurology feels that the patient has anoxic brain injury from prolonged cardiac arrest along with metabolic encephalopathy. In addition to all of this she has underlying covid 19 pneumonia. In addition to this, the patient has history of end-stage renal disease on hemodialysis, she also had history of DVT maintained on all across, and history of peripheral neuropathy. Labs today showed a pO2 of 123 pCO2 of 42 pH of 7.47 her WBC count is 11.9 hemoglobin is 8.6. BUN is 27 creatinine is 4.63. On 01/31/2002, patient's follow-up in the intensive care unit, she remains intubated, sedated, currently on assist control with a rate of 14, tidal volumes 350, FiO2 of 50%, and PEEP of 5, this morning's blood gases show pO2 146, pCO2 44, and pH of 7.39 and subsequently FiO2 was dropped down to 40%, currently on 0.9 ns at 10 ML per hour, Diprivan is at 20 mics per kilo per minute, no other drips, nutritional support in the form of vital high protein at 30, with a goal of 39. Patient is currently receiving hemodialysis treatment, patient is a chronic hemodialysis patient on the Sunday schedule. Patient apparently failed daily interruption of sedation, has not been following purposeful commands, she is only withdrawing to painful stimuli, there is no purposeful movement. Patient has been seen in consultation by neurology and followed by neurology and there is a possibility of anoxic brain injury from prolonged cardiac arrest along with metabolic encephalopathy. Patient tested positive for COVID 19 this admission. Chest x-ray today shows diffuse interstitial densities. Brain CT showed no acute intracranial process. EEG on 2020 showed background slowing suggestive of moderate encephalopathy, with no focal slowing, epileptiform discharge or seizures. Patient is receiving Keppra. Patient is on empiric antibiotics in the form of Zosyn. She is on Eliquis at 2.5 mg twice daily previous history of DVT, and possible paroxysmal A. fib. Cardiology is following in regards to V. fib arrest, there has been no further arrhythmias overnight On 02/01/2021 patient is seen in follow-up in the intensive care unit, patient remains sedated, intubated on assist control mode of ventilation with a rate of 14, tidal significant, FiO2 of 40% and PEEP of 5, his blood gases show pO2 of 85, pCO2 43 pH is 7.43. Today's chest x-ray shows stable left lower lobe infiltrate. FiO2 is 40%. No acute events overnight. Patient receiving initiation of support informal vital high protein at 39 with a goal of 39 ML per hour. EEG was done on 01/30/2021, showing abnormal routine EEG, with background slowing suggestive of moderate encephalopathy due to toxic metabolic disturbance. There was no focal slowing or epileptiform discharge or seizure. Patient continues on Keppra. Neurology is following. There has been no recurrence of arrhythmia, cartiology is following. Patient is on Eliquis for paroxysmal atrial fibrillation Progress note dated 02/02/2021. This is a 65-year-old female, again seen here in the intensive care unit. She currently is on propofol at 20 mcg/kg/m, and vital high protein at 39 mL an hour, which is goal. She remains on the mechanical ventilator, on the assist control mode, rate of 14, tidal volume 350, FiO2 40%, and PEEP of 5. Blood gases show a PaO2 of 77, PaCO2 43, and a pH is 7.4. We will do a daily interruption of sedation today. Current white count 8.2, hemoglobin 8.1, hematocrit 26.1, and platelet count 295,000. Her d-dimer is 4.12. Sodium 139, potassium 3.9, chlorides 103, CO2 26, anion gap 10, the 135, and creatinine 4.78. Microbiology is negative. Chest x-ray shows bilateral scattered infiltrates, left lower lobe atelectasis. Progress note dated 02/03/2021. 65-year-old female again seen in the intensive care unit. She is in room 263. The patient remains on mechanical ventilator. Her ventilator settings include a volume assist control mode, rate of 14, tidal volume 350, FiO2 40%, to be dropped to 30%, and PEEP of 5. Blood gases show pO2 129, pCO2 43, the pH is 7.42. She's currently on propofol at 25 mcg/kg/m, saline at 10 mL an hour, and vital high protein at 39 mL an hour which is goal. Yesterday, she had a daily interruption of sedation, which only lasted 20 minutes. She was nonresponsive. Vital signs became unstable and she was placed back on sedation. White count 9.6, hemoglobin 8.6, hematocrit 27.9, platelet count 323,000. Sodium 134, potassium 4.2, chlorides 98, CO2 25, anion gap 11, BUN 31, and creatinine 3.46. Chest x-ray shows bibasilar opacities. Objective - Vital Signs Vital signs: Vital Signs Temp 97.6 F 02/03/21 04:00 Pulse 51 L 02/03/21 07:00 Resp 16 02/03/21 07:00 BP 155/66 02/03/21 04:30 Pulse Ox 98 02/03/21 07:00 Intake & Output 02/02/21 02/03/21 02/03/21 18:59 06:59 18:59 Intake Total 1001.780 969.984 149 Output Total 3000 0 Balance -1998.220 969.984 149 Intake: IV 320 320 10 0.9 @ 10ml/hr 120 120 10 Piperacillin-Tazobactam 3 100 100 .375 gm In Sodium Chloride 0.9% 100 ml @ 25 mls/hr IVPB Q12HR [facility] Rx #:[id number] levETIRAcetam IV 500 mg 100 100 In Sodium Chloride 0.9% 100 ml @ 400 mls/hr IVPB Q12HR [facility] Rx#:[id number] Intake, IV Titration 123.780 160.984 100 Amount Clevidipine Butyrate 25 0.367 27.133 0 mg In Empty Bag 1 bag @ 1 MG/HR 2 mls/hr IV .Q24H [facility] Rx#:[id number] propofoL 1,000 mg In 123.413 133.851 100 Empty Bag 1 bag @ Titrate IV .Q0M [facility] Rx#: [id number] Tube Feeding 468 429 39 Other 90 60 Output: Urine 0 0 Hemodialysis 3000 Other: # Voids 0 0 0 # Bowel Movements 1 ABP, PAP, CO, CI - Last Documented Arterial Blood Pressure 133/49 - Exam Currently sedated, intubated, and mechanically ventilated. HEENT examination is grossly unremarkable. Neck supple. Full range of motion. No adenopathy thyromegaly or neck vein distention. Cardiovascular examination reveals regular rhythm rate. S1-S2 normal. No S3 or S4. No discernible murmur noted. Heart rate 51 bpm. Heart sounds are distant. Lungs reveal diffuse bilateral rhonchi and crackles. There are no wheezes. Abdomen soft bowel sounds are heard. No masses or tenderness. Extremities are intact. No cyanosis or clubbing. There is bilateral lower extremity edema. Skin is without rash or lesion. Neurologic examination could not be assessed as the patient's currently on propofol. - Labs CBC & Chem 7: 02/03/21 03:35 02/03/21 03:35 Labs: Abnormal Lab Results - Last 24 Hours (Table) 02/02/21 02/02/21 02/02/21 Range/Units 03:35 11:27 11:37 RBC (3.80-5.40) m/uL Hgb (11.4-16.0) gm/dL Hct (34.0-46.0) % MCHC (31.0-37.0) g/dL RDW (11.5-15.5) % Neutrophils # (1.3-7.7) k/uL Lymphocytes # (1.0-4.8) k/uL ABG pO2 (83-108) mmHg ABG HCO3 (21-25) mmol/L ABG Total CO2 (19-24) mmol/L ABG O2 Saturation (94-97) % Sodium (137-145) mmol/L BUN (7-17) mg/dL Creatinine (0.52-1.04) mg/dL Glucose (74-99) mg/dL POC Glucose (mg/dL) 132 H 139 H (75-99) mg/dL Ferritin 2697.5 H (10.0-291.0) ng/mL Alkaline Phosphatase (38-126) U/L Albumin (3.5-5.0) g/dL 02/02/21 02/03/21 02/03/21 Range/Units 17:53 01:35 03:35 RBC 2.82 L (3.80-5.40) m/uL Hgb 8.6 L (11.4-16.0) gm/dL Hct 27.9 L (34.0-46.0) % MCHC 30.9 L (31.0-37.0) g/dL RDW 17.3 H (11.5-15.5) % Neutrophils # 8.4 H (1.3-7.7) k/uL Lymphocytes # 0.9 L (1.0-4.8) k/uL ABG pO2 (83-108) mmHg ABG HCO3 (21-25) mmol/L ABG Total CO2 (19-24) mmol/L ABG O2 Saturation (94-97) % Sodium (137-145) mmol/L BUN (7-17) mg/dL Creatinine (0.52-1.04) mg/dL Glucose (74-99) mg/dL POC Glucose (mg/dL) 259 H 273 H (75-99) mg/dL Ferritin (10.0-291.0) ng/mL Alkaline Phosphatase (38-126) U/L Albumin (3.5-5.0) g/dL 02/03/21 02/03/21 02/03/21 Range/Units 03:35 05:31 06:04 RBC (3.80-5.40) m/uL Hgb (11.4-16.0) gm/dL Hct (34.0-46.0) % MCHC (31.0-37.0) g/dL RDW (11.5-15.5) % Neutrophils # (1.3-7.7) k/uL Lymphocytes # (1.0-4.8) k/uL ABG pO2 129 H (83-108) mmHg ABG HCO3 28 H (21-25) mmol/L ABG Total CO2 29 H (19-24) mmol/L ABG O2 Saturation 99.4 H (94-97) % Sodium 134 L (137-145) mmol/L BUN 31 H (7-17) mg/dL Creatinine 3.46 H (0.52-1.04) mg/dL Glucose 247 H (74-99) mg/dL POC Glucose (mg/dL) 255 H (75-99) mg/dL Ferritin (10.0-291.0) ng/mL Alkaline Phosphatase 207 H (38-126) U/L Albumin 3.1 L (3.5-5.0) g/dL Assessment and Plan Assessment: Cardiac arrest most likely secondary to cardiac arrhythmia initial rhythm was ventricular fibrillation upon EMS arrival. Acute hypoxic respiratory failure secondary to above, with probable significant anoxic brain injury. Bilateral interstitial edema most likely secondary to end-stage renal disease and suspect acute systolic congestive heart failure, likely ischemic in nature. Cardiac workup is pending. Strongly suspect anoxic brain injury and metabolic encephalopathy secondary to cardiac arrest. Type 2 diabetes. Benign essential hypertension. end stage renal disease on hemodialysis. History of carotid artery disease. History of DVT been maintained on all across. History of diabetic peripheral neuropathy. History of cardiac arrhythmia requiring cardiac ablation. Chronic lymphedema and cellulitis of both lower extremities. History of irritable bowel syndrome. History of covid 19 infection in October of 2020 Possible right paratracheal hematoma from attempted central line placement, CT of the chest was ordered. Plan: Plan dated 02/02/2021. The patient will have a daily eruption of sedation today. We will hopefully attempt a spontaneous breathing trial. Currently, the patient is oxygenating well. She is receiving enteral nutrition. Chest x-ray, labs, and medications are all reviewed. Additional recommendations suggestions are forthcoming. Prognosis is guarded. The patient does have 3 day a week hemodialysis. Plan dated 02/03/2021. Today, we will again have a daily interruption of sedation. The patient's currently on propofol at 25 mcg/kg/m. The FiO2 be dropped from 40% down to 30%. PaO2 on the blood gases today was 129. The patient's overall prognosis is poor. She is poorly responsive off sedation. She does have hemodialysis 3 days a week. The primary hospitalist services talking to the family about CODE STATUS. Additional recommendations and suggestions are coming. Prognosis is poor. Labs, medications, and x-rays are all reviewed. Time with Patient: Greater than 30
[2021-02-03 13:01] LABS: Glucose,Whole Blood 274 mg/dL (75-99)
--- NOTE | 2021-02-03 15:32 | P.PN ---
Subjective Patient is a pleasant 65-year-old the female was discharged from my service yesterday after she was treated for encephalopathy related to hypoglycemia. Patient had a cardiorespiratory arrest was pretty functional ambulate and go shopping at the time when she had a cardiorespiratory arrest, CPR was started and patient was later found to have went to her tachycardia, patient returned to sinus rhythm and 25 minutes subsequently was intubated and brought to emergency department. Patient did have history of ventricular tachycardia in the past pa tient was started on amiodarone at that time. Patient does have medical multiple medical problems including end-stage renal disease dialysis dependent chest x-ray showing significant infiltrate in the right lung mostly appears to be volume overload patient does have low-grade fever which can be secondary to cardiorespiratory arrest but patient was empirically started on Zosyn and patient is being admitted to ICU patient is presently intubated with FiO2 of 100% PEEP of 5 patient is breathing over the ventilator patient is on assist- control/volume controlled ventilation, on propofol patient does have conjunctival and corneal reflexes, does have gag reflex. No significant electrolyte abnormalities were appreciated. 01/29/2021 Patient is on ventilator support patient the doesn't have any significant response in after discontinue additional of sedation for about 4 hours. Patient was evaluated by multiple consultants including neurology patient had an EEG to assess for the brain function because of significant anoxic brain injury, patient has significant background slowing slowing encephalopathy. Patient still has brainstem reflexes that were described above. Patient had an echo Wh ich showed normal ejection fraction and grade 1 diastolic dysfunction. 01/30/2021 Patient was started back on propofol as patient is not tolerating ventilator patient remains on ventilatory support . Patient will undergo he hemodialysis tomorrow. Patient is on cisatracurium as well. Patient is undergoing repeat EEG to assess the brain function patient still has ranged stem reflexes at this time. 01/31/2021 Patient remains in intensity and neck done ventilatory support. Patient had a repeat EEG which she appeared to be bit better. Patient does have corneal reflex but doesn't have any conjunctival reflux, patient does have cough reflex biting on the ventilator. Patient remains on the propofol drip and patient neurological assessment it to be done off sedation although patient doesn't appear to be tolerating off sedation. Patient had dialysis today. 02/01/2021 Patient's sedation is being turned off at this time patient will be evaluated or sedation by neurology. Patient has sluggish are absent pupillary reflexes patient is still barely breathing over the ventilator at this time. Chest x-ray showing left lower lobe infiltrate today patient is on the NG tube feedings patient can use to be on Keppra prophylactically there is focal slowing on the EEG without any epileptiform discharges 02/02/2021 Patient is on sedation no symptom response patient has a corneal reflex but no conjunctival reflux patient does have some gag reflex as well although not responding. Patient was evaluated by neurology patient apparently had significant edema on the CT of the head that was done on january. Aspirin neurology chance of reasonable recovery is low and discussed with neurology and probably call family to discuss overall goals of care including comfort care terminal wean. 02/03/2021 Patient doesn't have any significant improvement in spite of hours of for holding off sedation. Doesn't appear to have significant improvement. Patient clinical condition and overall neurological status is bit worse. Discussed with the patient's family wants to continue the care at this time. Review of systems: Unable to obtain as patient is intubated All inpatient medications were reviewed and appropriate changes in these medications as dictated in the interval history and assessment and plan. Objective - Vital Signs Vital signs: Vital Signs Temp 97.1 F L 02/03/21 08:00 Pulse 61 02/03/21 15:00 Resp 22 02/03/21 15:00 BP 155/66 02/03/21 04:30 Pulse Ox 97 02/03/21 15:00 Intake & Output 02/02/21 02/03/21 02/03/21 18:59 06:59 18:59 Intake Total 1001.780 969.984 801.259 Output Total 3000 0 0 Balance -1998.220 969.984 801.259 Intake: IV 320 320 290 0.9 @ 10ml/hr 120 120 90 Piperacillin-Tazobactam 3 100 100 100 .375 gm In Sodium Chloride 0.9% 100 ml @ 25 mls/hr IVPB Q12HR [facility] Rx #:[id number] levETIRAcetam IV 500 mg 100 100 100 In Sodium Chloride 0.9% 100 ml @ 400 mls/hr IVPB Q12HR [facility] Rx#:[id number] Intake, IV Titration 123.780 160.984 100.259 Amount Clevidipine Butyrate 25 0.367 27.133 0 mg In Empty Bag 1 bag @ 1 MG/HR 2 mls/hr IV .Q24H [facility] Rx#:[id number] propofoL 1,000 mg In 123.413 133.851 100.259 Empty Bag 1 bag @ Titrate IV .Q0M [facility] Rx#: [id number] Tube Feeding 468 429 351 Other 90 60 60 Output: Urine 0 0 0 Hemodialysis 3000 Other: # Voids 0 0 0 # Bowel Movements 1 ABP, PAP, CO, CI - Last Documented Arterial Blood Pressure 159/62 - Exam PHYSICAL EXAMINATION: GENERAL: Patient is intubated sedated, does have an NG tube with some bloody drainage from the NG tube. Patient has a central line and arterial line HEENT: Pupils are round and and constricted at this time because of propofol. EOMI. No scleral icterus. No conjunctival pallor. Normocephalic, atraumatic. No pharyngeal erythema. No thyromegaly. CARDIOVASCULAR: S1 and S2 present. No murmurs, rubs, or gallops. PULMONARY: Chest is clear to auscultation, no wheezing or crackles. ABDOMEN: Soft, nontender, nondistended, normoactive bowel sounds. No palpable organomegaly. MUSCULOSKELETAL: No joint swelling or deformity. EXTREMITIES: No cyanosis, clubbing, bilateral pedal edema which is chronic NEUROLOGICAL: Intubated sedated but does have brainstem reflexes, patient doesn't have cough reflex is breathing over the ventilator, does have gag reflex. SKIN: Stage I and 2 ulcers which doesn't appear to be infected - Labs CBC & Chem 7: 02/03/21 03:35 02/03/21 03:35 Labs: Abnormal Lab Results - Last 24 Hours (Table) 02/02/21 02/02/21 02/03/21 Range/Units 03:35 17:53 01:35 RBC (3.80-5.40) m/uL Hgb (11.4-16.0) gm/dL Hct (34.0-46.0) % MCHC (31.0-37.0) g/dL RDW (11.5-15.5) % Neutrophils # (1.3-7.7) k/uL Lymphocytes # (1.0-4.8) k/uL ABG pO2 (83-108) mmHg ABG HCO3 (21-25) mmol/L ABG Total CO2 (19-24) mmol/L ABG O2 Saturation (94-97) % Sodium (137-145) mmol/L BUN (7-17) mg/dL Creatinine (0.52-1.04) mg/dL Glucose (74-99) mg/dL POC Glucose (mg/dL) 259 H 273 H (75-99) mg/dL Ferritin 2697.5 H (10.0-291.0) ng/mL Alkaline Phosphatase (38-126) U/L Albumin (3.5-5.0) g/dL 02/03/21 02/03/21 02/03/21 Range/Units 03:35 03:35 05:31 RBC 2.82 L (3.80-5.40) m/uL Hgb 8.6 L (11.4-16.0) gm/dL Hct 27.9 L (34.0-46.0) % MCHC 30.9 L (31.0-37.0) g/dL RDW 17.3 H (11.5-15.5) % Neutrophils # 8.4 H (1.3-7.7) k/uL Lymphocytes # 0.9 L (1.0-4.8) k/uL ABG pO2 129 H (83-108) mmHg ABG HCO3 28 H (21-25) mmol/L ABG Total CO2 29 H (19-24) mmol/L ABG O2 Saturation 99.4 H (94-97) % Sodium 134 L (137-145) mmol/L BUN 31 H (7-17) mg/dL Creatinine 3.46 H (0.52-1.04) mg/dL Glucose 247 H (74-99) mg/dL POC Glucose (mg/dL) (75-99) mg/dL Ferritin (10.0-291.0) ng/mL Alkaline Phosphatase 207 H (38-126) U/L Albumin 3.1 L (3.5-5.0) g/dL 02/03/21 02/03/21 Range/Units 06:04 13:00 RBC (3.80-5.40) m/uL Hgb (11.4-16.0) gm/dL Hct (34.0-46.0) % MCHC (31.0-37.0) g/dL RDW (11.5-15.5) % Neutrophils # (1.3-7.7) k/uL Lymphocytes # (1.0-4.8) k/uL ABG pO2 (83-108) mmHg ABG HCO3 (21-25) mmol/L ABG Total CO2 (19-24) mmol/L ABG O2 Saturation (94-97) % Sodium (137-145) mmol/L BUN (7-17) mg/dL Creatinine (0.52-1.04) mg/dL Glucose (74-99) mg/dL POC Glucose (mg/dL) 255 H 274 H (75-99) mg/dL Ferritin (10.0-291.0) ng/mL Alkaline Phosphatase (38-126) U/L Albumin (3.5-5.0) g/dL Assessment and Plan Plan: -Cardiorespiratory arrest leading to respiratory failure: Secondary to ventricular tachycardia patient was evaluated by cardiology echocardiogram as mentioned above . Repeat EEG showed some improvement in background slowing. Patient is on and off sedation no significant improvement in mental status or sedation. Patient has significant anoxic brain injury over all prognosis is poor, possibility of reasonable neurological recovery is low same thing was discussed with the family today. For now family wants to continue the care. -Acute hypoxic respiratory failure leading to anoxic brain injury. -Volume overload: Secondary to end-stage renal disease nephrology evaluated the patient. Patient is undergoing hemodialysis as scheduled -Fever: Most probably secondary to cardiorespiratory arrest blood cultures so far are negative except for sputum cultures showing gram-positive bacilli and cocci which is usually oral cavity bacteria -Recent covid 19 infection and month of October, patient had a repeat Covid 19 test that was positive again this is probably not a new infection but residual inactive RNA fragments. -End-stage renal disease, dialysis dependent -Type 2 diabetes mellitus patient is on sliding scale will hold off on long- acting insulin history of DVT for which patient is on Eliquis -Hypertension -Diabetic peripheral neuropathy -bilateral lower extremity ulcers doesn't appear to have cellulitis but does have chronic lymphedema Patient prognosis is extremely poor.
--- NOTE | 2021-02-03 16:21 | P.PN ---
Subjective Progress Note Date: 02/03/21 02/03/2021: Patient has been off sedation since 8 AM. No significant improvement. No seizure activity. Patient continues to be comatose, on mechanical ventilation. Please refer to examination below. 02/02/2021: Patient essentially unchanged. Per nursing report, propofol was discontinued for about 1-1/2 hours. The vent kept on alarming while the sedation was discontinued. She started coughing and gagging and blood pressure went up. There was no meaningful response noted. Now back on propofol 20 g. 02/01/2021: Patient was seen for a follow-up at 12:30 PM. Patient sedation was discontinued at 11:30 AM. I saw her almost one hour after she was off sedation. Patient continued to be comatose, not responding to any internal or external stimuli. No seizure-like activity noted. Patient apparently started biting on the ET tube, started to bite on her tongue. Fortunately she did not bite her tongue, as propofol was resumed and the tongue was gently pushed inside. 01/31/2021: Patient is a 65-year-old female came to the hospital on 01/28/2021 at 2:07 PM after a cardiac arrest with the downtime of 25 minutes. Patient had undergone hemodialysis in the morning, then for errands with her , came back home and had mentioned that she was not feeling well, vomited before she collapsed and had cardiac arrest. Patient's family started CPR before EMS arrived. Patient was shocked twice, appendectomy was given once and was intubated. Patient currently on propofol 20 g. Patient was initially seen by Dr. Lenny Fernandez. Please refer to his note for details. Patient has developed encephalopathy probably multifactorial due to anoxic brain injury from prolonged cardiac arrest, component of metabolic encephalopathy with uncontrolled diabetes, hypotension, underlying pneumonia fr om Covid. Patient also has history of end-stage renal disease on hemodialysis. Patient had an EEG performed yesterday, which revealed background slowing suggestive of moderate encephalopathy. The bilateral frontal intermittent rhythmic delta activity is due to toxic metabolic disturbance or structural lesion. No epileptiform activity was seen. Patient's background has improved as compared to the EEG from the day prior for 01/15/2021. Patient's blood test shows WBC 10.3 hemoglobin 8.0, platelets 328. Sodium 130 potassium 4.4, BUN 33, creatinine 6.32. Hepatic panel normal. CT head from 01/31/2021 shows no acute process. Per nursing report, when sedation is decreased, patient starts biting on the ET tube and her breathing becomes fast. CT head reported as no acute process per radiology report from 01/31/2021. Although on my review, there is evidence of generalized cerebral edema, somewhat with effacement of the sulci as compared to the computed tomography scan from 01/29/2021. Objective - Vital Signs Vital signs: Vital Signs Temp 97.1 F L 02/03/21 08:00 Pulse 61 02/03/21 15:00 Resp 22 02/03/21 15:00 BP 155/66 02/03/21 04:30 Pulse Ox 97 02/03/21 15:00 Intake & Output 02/02/21 02/03/21 02/03/21 18:59 06:59 18:59 Intake Total 1001.780 969.984 801.259 Output Total 3000 0 0 Balance -1998.220 969.984 801.259 Intake: IV 320 320 290 0.9 @ 10ml/hr 120 120 90 Piperacillin-Tazobactam 3 100 100 100 .375 gm In Sodium Chloride 0.9% 100 ml @ 25 mls/hr IVPB Q12HR [facility] Rx #:[id number] levETIRAcetam IV 500 mg 100 100 100 In Sodium Chloride 0.9% 100 ml @ 400 mls/hr IVPB Q12HR [facility] Rx#:[id number] Intake, IV Titration 123.780 160.984 100.259 Amount Clevidipine Butyrate 25 0.367 27.133 0 mg In Empty Bag 1 bag @ 1 MG/HR 2 mls/hr IV .Q24H [facility] Rx#:[id number] propofoL 1,000 mg In 123.413 133.851 100.259 Empty Bag 1 bag @ Titrate IV .Q0M [facility] Rx#: [id number] Tube Feeding 468 429 351 Other 90 60 60 Output: Urine 0 0 0 Hemodialysis 3000 Other: # Voids 0 0 0 # Bowel Movements 1 ABP, PAP, CO, CI - Last Documented Arterial Blood Pressure 159/62 - Exam On examination patient is an elderly female, who is unresponsive, comatose. Patient's tongue is slightly protruding out on the right. Patient's pupils are 3 mm, not clearly reacting. Oculocephalics are present. Corneals present. No seizure activity noticed. Patient does have a cough and a gag reflex. Tone is equal bilaterally. Patient has peripheral edema. With painful stimuli, patient had slight flexor posturing on the right, with some shoulder movement on the left. No response with nailbed pressure stimuli in the feet. - Labs CBC & Chem 7: 02/03/21 03:35 02/03/21 03:35 Labs: Abnormal Lab Results - Last 24 Hours (Table) 02/02/21 02/02/21 02/03/21 Range/Units 03:35 17:53 01:35 RBC (3.80-5.40) m/uL Hgb (11.4-16.0) gm/dL Hct (34.0-46.0) % MCHC (31.0-37.0) g/dL RDW (11.5-15.5) % Neutrophils # (1.3-7.7) k/uL Lymphocytes # (1.0-4.8) k/uL ABG pO2 (83-108) mmHg ABG HCO3 (21-25) mmol/L ABG Total CO2 (19-24) mmol/L ABG O2 Saturation (94-97) % Sodium (137-145) mmol/L BUN (7-17) mg/dL Creatinine (0.52-1.04) mg/dL Glucose (74-99) mg/dL POC Glucose (mg/dL) 259 H 273 H (75-99) mg/dL Ferritin 2697.5 H (10.0-291.0) ng/mL Alkaline Phosphatase (38-126) U/L Albumin (3.5-5.0) g/dL 02/03/21 02/03/21 02/03/21 Range/Units 03:35 03:35 05:31 RBC 2.82 L (3.80-5.40) m/uL Hgb 8.6 L (11.4-16.0) gm/dL Hct 27.9 L (34.0-46.0) % MCHC 30.9 L (31.0-37.0) g/dL RDW 17.3 H (11.5-15.5) % Neutrophils # 8.4 H (1.3-7.7) k/uL Lymphocytes # 0.9 L (1.0-4.8) k/uL ABG pO2 129 H (83-108) mmHg ABG HCO3 28 H (21-25) mmol/L ABG Total CO2 29 H (19-24) mmol/L ABG O2 Saturation 99.4 H (94-97) % Sodium 134 L (137-145) mmol/L BUN 31 H (7-17) mg/dL Creatinine 3.46 H (0.52-1.04) mg/dL Glucose 247 H (74-99) mg/dL POC Glucose (mg/dL) (75-99) mg/dL Ferritin (10.0-291.0) ng/mL Alkaline Phosphatase 207 H (38-126) U/L Albumin 3.1 L (3.5-5.0) g/dL 02/03/21 02/03/21 Range/Units 06:04 13:00 RBC (3.80-5.40) m/uL Hgb (11.4-16.0) gm/dL Hct (34.0-46.0) % MCHC (31.0-37.0) g/dL RDW (11.5-15.5) % Neutrophils # (1.3-7.7) k/uL Lymphocytes # (1.0-4.8) k/uL ABG pO2 (83-108) mmHg ABG HCO3 (21-25) mmol/L ABG Total CO2 (19-24) mmol/L ABG O2 Saturation (94-97) % Sodium (137-145) mmol/L BUN (7-17) mg/dL Creatinine (0.52-1.04) mg/dL Glucose (74-99) mg/dL POC Glucose (mg/dL) 255 H 274 H (75-99) mg/dL Ferritin (10.0-291.0) ng/mL Alkaline Phosphatase (38-126) U/L Albumin (3.5-5.0) g/dL Assessment and Plan Assessment: * Status post cardiac arrest with anoxic encephalopathy. Patient not showing any signs of clinical improvement. * Probable superimposed component of metabolic encephalopathy. * End-stage renal disease on hemodialysis. * Acute Covid-19 related pneumonia. Plan: * Patient clinically is no better 144 hours post cardiac arrest. Patient continues to be comatose. * Patient computed tomography scan of the head from 01/31/2021 shows mild generalized cerebral edema, with slight effacement of the sulci, as per my review, although the radiologist reported normal. * Prognosis appears very guarded to poor for meaningful recovery at this time based upon lack of significant clinical improvement, and also multiple comorbid conditions. * EEG canceled, as it will not change the management. She already had 2 EEGs performed in the past. She is not showing any signs of seizure. * Consider track and PEG placement, if family wishes to continue full medical care. * Continue present management and supportive care.
--- NOTE | 2021-02-03 17:09 | PN ---
PROGRESS NOTE Patient is followed for end-stage renal disease. There continues to be no change in her mentation. No improvement in her mentation. The patient remains on the vent. Blood pressure 155/61. She is afebrile. Heart rate of about 62 per minute. Patient is not examined. Case is discussed with nursing staff. No edema. Patient is tolerating tube feeds. Labs are reviewed. Hemoglobin 8.6, sodium 134, potassium 4.2. ASSESSMENT: 1. End-stage renal disease, on hemodialysis on a Sunday, Sunday, Sunday schedule. 2. Anoxic encephalopathy, status post cardiopulmonary arrest. 3. COVID pneumonia. 4. Anemia of chronic disease. PLAN: Hemodialysis in a.m. unless family decides to proceed with comfort care measures. MMTIFFANYL / DUKEN: [id number] /
[2021-02-03 18:12] LABS: Glucose,Whole Blood 275 mg/dL (75-99)
[2021-02-03] MEDS: amLODIPine 10 MG TAB PO SCH (20:42)
[2021-02-04 00:01] LABS: Glucose,Whole Blood 255 mg/dL (75-99)
[2021-02-04 00:01] LABS: Glucose,Whole Blood 242 mg/dL (75-99)
[2021-02-04] MEDS: INSULIN ASPART (NovoLOG) 100 UNIT/ML VIAL SQ SCH ×4 (00:27→17:39)
[2021-02-04 04:26] LABS: ABG Base Excess 2.2 mmol/L; ABG HCO3 27 mmol/L (21-25); ABG Oxygen Saturation 97.3 % (94-97); ABG PCO2 41 mmHg (35-45); ABG PH 7.42 (7.35-7.45); ABG PO2 97 mmHg (83-108); ABG TCO2 28 mmol/L (19-24)
[2021-02-04 04:27] LABS: Allen Test Performed? no
[2021-02-04 04:53] LABS: Anisocytosis Slight; Basophils % (A) 0 %; Eosinophils # (A) 0.1 k/uL (0-0.7); Eosinophils % (A) 1 %; HCT 28.5 % (34.0-46.0); Hypochromasia Moderate; Lymphocytes # (A) 1.2 k/uL (1.0-4.8); Lymphocytes % (A) 12 %; MCH 30.8 pg (25.0-35.0); MCHC 31.5 g/dL (31.0-37.0); Macrocytosis Slight; Mean Platelet Volume 8.4; Monocytes # (A) 0.6 k/uL (0-1.0); Monocytes % (A) 6 %; Neutrophils # (A) 8.4 k/uL (1.3-7.7); Neutrophils % (A) 81 %; Platelet Count 363 k/uL (150-450); RBC 2.91 m/uL (3.80-5.40); RDW 17.3 % (11.5-15.5); WBC 10.5 k/uL (3.8-10.6)
[2021-02-04 05:12] LABS: Albumin 2.9 g/dL (3.5-5.0); Calcium 8.9 mg/dL (8.4-10.2); Potassium 3.7 mmol/L (3.5-5.1); Total Bilirubin 0.4 mg/dL (0.2-1.3); Total Protein 6.1 g/dL (6.3-8.2)
[2021-02-04] MEDS: CLEVIDIPINE BUTYRATE 25 MG in EMPTY BAG 1 BAG IV SCH ×2 (05:24→09:51)
[2021-02-04 06:21] LABS: Glucose,Whole Blood 277 mg/dL (75-99)
--- NOTE | 2021-02-04 08:17 | XR ---
EXAMINATION TYPE: XR chest 1V portable DATE OF EXAM: 02/04/2021 Comparison: 02/03/2021 Clinical History: 65-year-old female intubated on mechanical ventilator, fluid status Findings: ET tube tip 2.1 cm from the ady. NG tube courses below the diaphragm. A short oblique towards left with multiple skin folds projecting over the chest. Heart mildly enlarged. Interstitial densities ap pear increased. Continued retrocardiac opacity. Impression: Suboptimal positioning. Interstitial densities appear increased. Correlate for developing pulmonary v ascular congestion. Continued left basilar opacity, possible small effusion with adjacent atelectasis and/or consolidation.
--- NOTE | 2021-02-04 08:27 | CDI ---
Documentation Clarification Form Date: 02/04/2021 07:36:29 AM From: Sobeida Scott RN, CCDS Admit Date: 01/28/2021 10:21:00 PM Patient Name: Clarissa Lazar Visit Number: [id number] Discharge Date: ATTENTION: The Clinical Documentation Specialists (CDI) and [facility] Coding Staff appreciate your assistance in clarifying documentation. Please respond to the clarification below the line at the bottom and electronically sign. The CDI & [facility] Coding staff will review the response and follow-up if needed. Please note: Queries are made part of the Legal Health Record. If you have any questions, please contact the author of this message via ITS. Dr. Mack Martinez Bilateral pressure ulcer is documented in the H/P on 01/28 and subsequent progress notes. Additional clarification regarding the stage, location specificity, etiology of the pressure ulcer is requested. History/Risk Factors: Diabetes Mellitus, ESRD on HD, Hypertension, Diabetic peripheral neuropathy Clinical Indicators: 65-year-old female present to ED on 01/28 via EMS in cardiopulmonary arrest. In the H/P skin; stage 1 and 2 ulcers which doesn't appear to be infected. 01/29 and subsequent progress notes: Bilateral lower extremity ulcers doesn't appear to have cellulitis bout does have chronic lymphedema is documented. 01/29-02/03 nursing wound assessment: Left heel pressure ulcer stage III, right heel pressure ulcer stage III Treatment: Silvadene Cream 1 application topical daily Monitor Skin integrity per protocol Please clarify the stage of pressure ulcer, location and etiology if known [ ] Stage 2 Diabetic pressure ulcer right and left heel, POA [ ] Stage 3 Diabetic pressure ulcer right and left heel, POA [ ] Other condition, please specify [ ] Unable to determine Clinical Definitions: Stage 1 Pressure Ulcer: intact skin, non-blanching redness of local area Stage 2 Pressure Ulcer: Partial thickness, loss of dermis, pink wound bed Stage 3 Pressure Ulcer: Full thickness tissue loss Stage 4 Pressure Ulcer: Full thickness tissue loss with exposed bone, tendon, or muscle. Unstageable pressure ulcer: Full thickness tissue loss in which the base of the ulcer is covered by slough (yellow, rosas, pearson, green or brown) and/or eschar (rosas, brown or black) in the wound bed. (Template Last Revised: December 2020) Stage 2 Pressure Ulcer: Partial thickness, loss of dermis, pink wound bed MTDD
[2021-02-04] MEDS: PIPERACILLIN-TAZOBACTAM 3.375 GM in SODIUM CHLORIDE 0.9% 100 ML IVPB SCH ×2 (09:51→21:51)
[2021-02-04] MEDS: levETIRAcetam IV 500 MG in SODIUM CHLORIDE 0.9% 100 ML IVPB SCH ×2 (09:51→21:53)
[2021-02-04] MEDS: CALCIUM ACETATE 667 MG TAB PO SCH ×2 (09:52→17:40)
[2021-02-04] MEDS: DEXAMETHASONE SOD PHOSPHATE 10 MG/ML 1 ML VIAL IV SCH (09:53)
[2021-02-04] MEDS: ASPIRIN 81 MG PO SCH (09:53)
[2021-02-04] MEDS: CHLORHEXIDINE GLUCONATE 15 ML CUP MUCOUS MEM SCH ×2 (09:53→21:51)
[2021-02-04] MEDS: APIXABAN 2.5 MG TABLET PO SCH ×2 (09:53→21:50)
[2021-02-04] MEDS: ZINC SULFATE 220 MG CAP PO SCH ×2 (09:53→21:51)
[2021-02-04] MEDS: PANTOPRAZOLE 40 MG/10 ML VIAL IVP SCH ×2 (09:54→21:50)
--- NOTE | 2021-02-04 11:32 | P.PN ---
Subjective Progress Note Date: 02/04/21 Principal diagnosis: Acute hypoxemic respiratory failure. This is a 65-year-old female with history of multiple medical problems, known to have end-stage renal disease, on hemodialysis, type 2 diabetes, coronary artery disease, cardiogenic in the form of ventricular tachycardia, patient had had hemodialysis yesterday, and she went home felt nauseated, while at home the patient had a sudden cardiac arrest at 1310. Family initiated CPR according to EMS, fire department arrived to the scene and found the patient to be unresponsive, in ventricular fibrillation. She was defibrillated, and CPR was continued. Patient received epinephrine, and after the second the defibrillat ion, there was return of spontaneous circulation. Down time was in the range of 20 minutes. Patient was brought into the emergency room, kept on mechanical ventilation, she was hemodynamically stable not requiring any pressors. Transferred to the ICU, and I was asked to see her on consultation. The major concern at this point is the fact that the patient had a prolonged downtime, and she most likely sustained anoxic brain injury. Hence a neurological consultation was initiated on this patient. I discontinued all her sedation and we will arrange for neurological consultation. Ventilator oreilly the patient is on assist control rate of 14, volume 350 FiO2 went down from 60% to 45%, ABG crow wed a pO2 of 130 pCO2 of 36 pH of 7.52. All this information was obtained from the chart, no family members available at bedside Patient was reevaluated today on 01/30/2021, remains in the ICU, intubated and mechanically ventilated. Her ventilator settings are assist control rate of 14 tidal volume of 350 FiO2 is 50% PEEP of 5. Patient remains on propofol at 30 mcg/kg/m, remains on antibiotics for her cellulitis she is on Zosyn. Patient is only withdrawing to painful stimuli, but no purposeful movement. She was seen by neurology on consultation, and neurology feels that the patient has anoxic brain injury from prolonged cardiac arrest along with metabolic encephalopathy. In addition to all of this she has underlying covid 19 pneumonia. In addition to this, the patient has history of end-stage renal disease on hemodialysis, she also had history of DVT maintained on all across, and history of peripheral neuropathy. Labs today showed a pO2 of 123 pCO2 of 42 pH of 7.47 her WBC count is 11.9 hemoglobin is 8.6. BUN is 27 creatinine is 4.63. On 01/31/2002, patient's follow-up in the intensive care unit, she remains intubated, sedated, currently on assist control with a rate of 14, tidal volumes 350, FiO2 of 50%, and PEEP of 5, this morning's blood gases show pO2 146, pCO2 44, and pH of 7.39 and subsequently FiO2 was dropped down to 40%, currently on 0.9 ns at 10 ML per hour, Diprivan is at 20 mics per kilo per minute, no other drips, nutritional support in the form of vital high protein at 30, with a goal of 39. Patient is currently receiving hemodialysis treatment, patient is a chronic hemodialysis patient on the Sunday schedule. Patient apparently failed daily interruption of sedation, has not been following purposeful commands, she is only withdrawing to painful stimuli, there is no purposeful movement. Patient has been seen in consultation by neurology and followed by neurology and there is a possibility of anoxic brain injury from prolonged cardiac arrest along with metabolic encephalopathy. Patient tested positive for COVID 19 this admission. Chest x-ray today shows diffuse interstitial densities. Brain CT showed no acute intracranial process. EEG on 2020 showed background slowing suggestive of moderate encephalopathy, with no focal slowing, epileptiform discharge or seizures. Patient is receiving Keppra. Patient is on empiric antibiotics in the form of Zosyn. She is on Eliquis at 2.5 mg twice daily previous history of DVT, and possible paroxysmal A. fib. Cardiology is following in regards to V. fib arrest, there has been no further arrhythmias overnight On 02/01/2021 patient is seen in follow-up in the intensive care unit, patient remains sedated, intubated on assist control mode of ventilation with a rate of 14, tidal significant, FiO2 of 40% and PEEP of 5, his blood gases show pO2 of 85, pCO2 43 pH is 7.43. Today's chest x-ray shows stable left lower lobe infiltrate. FiO2 is 40%. No acute events overnight. Patient receiving initiation of support informal vital high protein at 39 with a goal of 39 ML per hour. EEG was done on 01/30/2021, showing abnormal routine EEG, with background slowing suggestive of moderate encephalopathy due to toxic metabolic disturbance. There was no focal slowing or epileptiform discharge or seizure. Patient continues on Keppra. Neurology is following. There has been no recurrence of arrhythmia, cartiology is following. Patient is on Eliquis for paroxysmal atrial fibrillation Progress note dated 02/02/2021. This is a 65-year-old female, again seen here in the intensive care unit. She currently is on propofol at 20 mcg/kg/m, and vital high protein at 39 mL an hour, which is goal. She remains on the mechanical ventilator, on the assist control mode, rate of 14, tidal volume 350, FiO2 40%, and PEEP of 5. Blood gases show a PaO2 of 77, PaCO2 43, and a pH is 7.4. We will do a daily interruption of sedation today. Current white count 8.2, hemoglobin 8.1, hematocrit 26.1, and platelet count 295,000. Her d-dimer is 4.12. Sodium 139, potassium 3.9, chlorides 103, CO2 26, anion gap 10, the 135, and creatinine 4.78. Microbiology is negative. Chest x-ray shows bilateral scattered infiltrates, left lower lobe atelectasis. Progress note dated 02/03/2021. 65-year-old female again seen in the intensive care unit. She is in room 263. The patient remains on mechanical ventilator. Her ventilator settings include a volume assist control mode, rate of 14, tidal volume 350, FiO2 40%, to be dropped to 30%, and PEEP of 5. Blood gases show pO2 129, pCO2 43, the pH is 7.42. She's currently on propofol at 25 mcg/kg/m, saline at 10 mL an hour, and vital high protein at 39 mL an hour which is goal. Yesterday, she had a daily interruption of sedation, which only lasted 20 minutes. She was nonresponsive. Vital signs became unstable and she was placed back on sedation. White count 9.6, hemoglobin 8.6, hematocrit 27.9, platelet count 323,000. Sodium 134, potassium 4.2, chlorides 98, CO2 25, anion gap 11, BUN 31, and creatinine 3.46. Chest x-ray shows bibasilar opacities. Progress note dated 02/04/2021. 65-year-old female, again seen in the intensive care unit, room 263. She remains on the mechanical ventilator, in the volume assist control mode. Her tidal volume is 350, her rate is 14, FiO2 30%, and PEEP of 5. Blood gases show a PaO2 of 97, PaCO2 41, and a pH of 7.42. The propofol has been off for at least a day now, she remains on Cleveprex at 2 mg an hour, saline at KVO, and vital high protein at goal, which is 39 mL an hour. We are going to put in for a tracheostomy and PEG tube placement by the surgeon. Apparently the patient's family wants everything to be done at this point. Her neurologic status is poor, and not thought to be able to recover according to neurology. White count 10.5, hemoglobin 9, hematocrit 28.5, and platelet count 363,000. Sodium 137, potassium 3.7, chlorides 99, CO2 25, anion gap 13, BUN 50, creatinine 4.34. Chest x-ray shows left basilar opacity, and small effusions bilaterally. There may be some vascular congestion as well. Objective - Vital Signs Vital signs: Vital Signs Temp 97.8 F 02/04/21 04:00 Pulse 58 L 02/04/21 07:00 Resp 24 02/04/21 07:00 BP 155/66 02/03/21 04:30 Pulse Ox 98 02/04/21 07:00 Intake & Output 02/03/21 02/04/21 02/04/21 18:59 06:59 18:59 Intake Total 1027.259 856.567 57.9 Output Total 0 0 0 Balance 1027.259 856.567 57.9 Intake: IV 330 270 10 0.9 @ 10ml/hr 130 70 10 Piperacillin-Tazobactam 3 100 100 .375 gm In Sodium Chloride 0.9% 100 ml @ 25 mls/hr IVPB Q12HR [facility] Rx #:[id number] levETIRAcetam IV 500 mg 100 100 In Sodium Chloride 0.9% 100 ml @ 400 mls/hr IVPB Q12HR [facility] Rx#:[id number] Intake, IV Titration 100.259 47.567 8.9 Amount Clevidipine Butyrate 25 0 47.567 8.9 mg In Empty Bag 1 bag @ 1 MG/HR 2 mls/hr IV .Q24H [facility] Rx#:[id number] propofoL 1,000 mg In 100.259 Empty Bag 1 bag @ Titrate IV .Q0M [facility] Rx#: [id number] Tube Feeding 507 429 39 Other 90 110 Output: Urine 0 0 0 Other: # Voids 0 # Bowel Movements 1 ABP, PAP, CO, CI - Last Documented Arterial Blood Pressure 152/51 - Exam Currently intubated, and mechanically ventilated. HEENT examination is grossly unremarkable. Neck supple. Full range of motion. No adenopathy thyromegaly or neck vein distention. Cardiovascular examination reveals regular rhythm rate. S1-S2 normal. No S3 or S4. No discernible murmur noted. Heart rate 58 bpm. Heart sounds are distant. Lungs reveal diffuse bilateral rhonchi and crackles. There are no wheezes. Br eath sounds are equal bilaterally. Abdomen soft bowel sounds are heard. No masses or tenderness. Extremities are intact. No cyanosis or clubbing. There is bilateral lower extremity edema. Skin is without rash or lesion. Neurologic examination is unchanged. Off of sedation, she opens her eyes, but there is no purposeful movements. - Labs CBC & Chem 7: 02/04/21 04:30 02/04/21 04:30 Labs: Abnormal Lab Results - Last 24 Hours (Table) 02/03/21 02/03/21 02/03/21 Range/Units 13:00 18:11 23:53 RBC (3.80-5.40) m/uL Hgb (11.4-16.0) gm/dL Hct (34.0-46.0) % RDW (11.5-15.5) % Neutrophils # (1.3-7.7) k/uL ABG HCO3 (21-25) mmol/L ABG Total CO2 (19-24) mmol/L ABG O2 Saturation (94-97) % BUN (7-17) mg/dL Creatinine (0.52-1.04) mg/dL Glucose (74-99) mg/dL POC Glucose (mg/dL) 274 H 275 H 255 H (75-99) mg/dL Alkaline Phosphatase (38-126) U/L Total Protein (6.3-8.2) g/dL Albumin (3.5-5.0) g/dL 02/03/21 02/04/21 02/04/21 Range/Units 23:59 04:16 04:30 RBC 2.91 L (3.80-5.40) m/uL Hgb 9.0 L (11.4-16.0) gm/dL Hct 28.5 L (34.0-46.0) % RDW 17.3 H (11.5-15.5) % Neutrophils # 8.4 H (1.3-7.7) k/uL ABG HCO3 27 H (21-25) mmol/L ABG Total CO2 28 H (19-24) mmol/L ABG O2 Saturation 97.3 H (94-97) % BUN (7-17) mg/dL Creatinine (0.52-1.04) mg/dL Glucose (74-99) mg/dL POC Glucose (mg/dL) 242 H (75-99) mg/dL Alkaline Phosphatase (38-126) U/L Total Protein (6.3-8.2) g/dL Albumin (3.5-5.0) g/dL 02/04/21 02/04/21 Range/Units 04:30 06:18 RBC (3.80-5.40) m/uL Hgb (11.4-16.0) gm/dL Hct (34.0-46.0) % RDW (11.5-15.5) % Neutrophils # (1.3-7.7) k/uL ABG HCO3 (21-25) mmol/L ABG Total CO2 (19-24) mmol/L ABG O2 Saturation (94-97) % BUN 50 H (7-17) mg/dL Creatinine 4.34 H (0.52-1.04) mg/dL Glucose 250 H (74-99) mg/dL POC Glucose (mg/dL) 277 H (75-99) mg/dL Alkaline Phosphatase 161 H (38-126) U/L Total Protein 6.1 L (6.3-8.2) g/dL Albumin 2.9 L (3.5-5.0) g/dL Assessment and Plan Assessment: Cardiac arrest most likely secondary to cardiac arrhythmia initial rhythm was ventricular fibrillation upon EMS arrival. Acute hypoxic respiratory failure secondary to above, with probable significant anoxic brain injury. Bilateral interstitial edema most likely secondary to end-stage renal disease and suspect acute systolic congestive heart failure, likely ischemic in nature. Cardiac workup is pending. Strongly suspect anoxic brain injury and metabolic encephalopathy secondary to cardiac arrest. Type 2 diabetes. Benign essential hypertension. end stage renal disease on hemodialysis. History of carotid artery disease. History of DVT been maintained on all across. History of diabetic peripheral neuropathy. History of cardiac arrhythmia requiring cardiac ablation. Chronic lymphedema and cellulitis of both lower extremities. History of irritable bowel syndrome. History of covid 19 infection in October of 2020 Possible right paratracheal hematoma from attempted central line placement, CT of the chest was ordered. Plan: Plan dated 02/02/2021. The patient will have a daily eruption of sedation today. We will hopefully attempt a spontaneous breathing trial. Currently, the patient is oxygenating well. She is receiving enteral nutrition. Chest x-ray, labs, and medications are all reviewed. Additional recommendations suggestions are forthcoming. Prognosis is guarded. The patient does have 3 day a week hemodialysis. Plan dated 02/03/2021. Today, we will again have a daily interruption of sedation. The patient's currently on propofol at 25 mcg/kg/m. The FiO2 be dropped from 40% down to 30%. PaO2 on the blood gases today was 129. The patient's overall prognosis is poor. She is poorly responsive off sedation. She does have hemodialysis 3 days a week. The primary hospitalist services talking to the family about CODE STATUS. Additional recommendations and suggestions are coming. Prognosis is poor. Labs, medications, and x-rays are all reviewed. Plan dated 02/04/2021. The primary hospitalist service to talk to the family about CODE STATUS. Apparently, they are insistent on keeping the patient on the life support machine at this time. We will go ahead and ask surgery to consider doing a tracheostomy and PEG tube placement. Her neurologic status is poor, and I looked at the from the neurologist, who suggested her likelihood of significant recovery is very small. Nonetheless, the patient is maintained on Cleveprex for blood pressure control. Gas exchange is reasonable. We will continue to follow. Prognosis is very poor. No additional recommendations are made. Time with Patient: Greater than 30
[2021-02-04 11:38] LABS: Glucose,Whole Blood 219 mg/dL (75-99)
--- NOTE | 2021-02-04 15:08 | P.GSCN ---
History of Present Illness Consult date: 02/04/21 History of present illness: CHIEF COMPLAINT: Cardiac arrest HISTORY OF PRESENT ILLNESS: This is a 65-year-old female with a known past medical history of end-stage renal disease on hemodialysis, hypertension, diabetes, coronary artery disease and previous episode of ventricle tachycardia with a prior cardiac ablation. Surgical history includes appendectomy, cholecys tectomy, and tubal ligation. Patient was brought in to the emergency room after having a cardiac arrest at home on 01/28/2021. Family initiated CPR. EMS found that patient did go ventricle fibrillation. She was defibrillated and CPR was continued. She also received epinephrine and had a second defibrillation. There was a return of spontaneous circulation. Down time about 20 minutes. Patient was brought into the emergency room kept on mechanical ventilation and taken to the ICU. Patient has a probable anoxic brain injury due to prolonged down time. Patient remains on mechanical ventilation and in the ICU. She is hypertensive and on Cleveprex for blood pressure control. S urgical consult was requested for trach and PEG tube placement. PAST MEDICAL HISTORY: See list. PAST SURGICAL HISTORY: See list. MEDICATIONS: See list. ALLERGIES: See list. SOCIAL HISTORY: No illicit drug use. REVIEW OF SYSTEMS: CONSTITUTIONAL: Denies fever or chills. HEENT: Denies blurred vision, vision changes, or eye pain. Denies hemoptysis CARDIOVASCULAR: Denies chest pain or pressure. RESPIRATORY: No shortness of breath. GASTROINTESTINAL: See HPI for pertinent findings HEMATOLOGIC: Denies bleeding disorders. GENITOURINARY: Denies any blood in urine or increased urinary frequency. SKIN: Denies pruitis. Denies rash. PHYSICAL EXAM: VITAL SIGNS: Reviewed GENERAL: Well-developed in no acute distress. HEENT: No sclera icterus. Extraocular movements grossly intact. Moist buccal mucosa. Head is atraumatic, normocephalic. No nasal drainage. ABDOMEN: Soft. Nondistended. Nontender NEUROLOGIC: Patient is intubated. Not on any sedation. Is able to open eyes but no purposeful movements LABORATORY DATA: WBC 10.5 Hgb 9 platelets 363 Sodium 137 potassium 3.7 creatinine 4.34 IMAGING: ASSESSMENT: 1. Cardiac arrest 2. Acute hypoxic respiratory failure 3. Possible anoxic brain injury 4. History of DVT maintained on Eliquis 5. End-stage renal disease 6. History of Covid 19 infection in October 2020 PLAN: -Patient is scheduled for tracheostomy and PEG tube placement on 02/07/[address] Mcintosh -Hold Elijoseis starting on Sunday morning in preparation for tracheostomy and PEG tube placement -Continue supportive care -Continue ICU management Physician Health Teacher note has been reviewed by physician. Signing provider agrees with the documented findings, assessment, and plan of care. Past Medical History Past Medical History: Diabetes Mellitus, Dialysis, Deep Vein Thrombosis (DVT), Hypertension, Renal Disease Additional Past Medical History / Comment(s): ESRD with hemodialysis,MWF, IDDM type II, past DKA, neuropathy bilateral feet/legs and alittle in hands, "fast heart rate"-had cardiac ablation, lymphedema bilateral lower legs/feet, gout R knee, mineral bone disease, IBS, R sided Mustafa's palsey.skin CA on back removed. covid 19 in October History of Any Multi-Drug Resistant Organisms: None Reported Past Surgical History: Appendectomy, Cardiac Ablation, Section, Cholecystectomy, Tubal Ligation Additional Past Surgical History / Comment(s): bilateral cataract removal with lens implants, C-sections, bilateral benign breast biopsies, AV graft left arm done 06-23-16 for dialysis, colonoscopy. Past Anesthesia/Blood Transfusion Reactions: Motion Sickness, Postoperative Nausea & Vomiting (PONV) Past Psychological History: No Psychological Hx Reported Additional Psychological History / Comment(s): . Smoking Status: Unknown if ever smoked Past Alcohol Use History: None Reported Past Drug Use History: None Reported - Past Family History Father Family Medical History: Cancer, Diabetes Mellitus Additional Family Medical History / Comment(s): Father had prostate cancer. Mother Family Medical History: Cancer Additional Family Medical History / Comment(s): Mother had breast cancer. Medications and Allergies Home Medications Medication Instructions Recorded Confirmed Type Gabapentin [Neurontin] 300 mg PO DAILY PRN 06/27/16 01/28/21 History Aspirin [Adult Low Dose Aspirin EC] 81 mg PO DAILY 09/16/16 01/28/21 History amLODIPine [Norvasc] 10 mg PO HS 11/29/16 01/28/21 History Lidocaine-Prilocaine Cream [Emla 1 applic TOPICAL TUTHSA PRN 05/19/20 01/28/21 History Cream 2.5%/2.5%] Ondansetron HCl [Zofran] 4 mg PO Q8H PRN 05/19/20 01/28/21 History Calcium Acetate [PhosLo] 1,334 mg PO AC-BID 07/12/20 01/28/21 History Calcium Acetate [PhosLo] 667 mg PO DAILY PRN 07/12/20 01/28/21 History INSULIN ASPART (NovoLOG) [NovoLOG See Protocol SQ AC-TID 07/12/20 01/28/21 History (formulary)] hydrALAZINE HCL [Apresoline] 50 mg PO TID #90 tab 07/16/20 01/28/21 Rx Furosemide [Lasix] 80 mg PO BID PRN 11/01/20 01/28/21 History Zinc 50 mg PO BID 12/08/20 01/28/21 History Albuterol Sulfate [Ventolin HFA] 2 puff INHALATION RT-QID PRN 01/26/21 01/28/21 History Apixaban [Eliquis] 2.5 mg PO BID 01/26/21 01/28/21 History Loperamide [Imodium] 4 mg PO Q6H PRN 01/26/21 01/28/21 History HYDROcodone/APAP 7.5-325MG [[place] 1 tablet PO BID #0 01/27/21 01/28/21 Rx 7.5-325] Insulin Glargine,Hum.rec.anlog 15 unit SQ HS #0 01/27/21 01/28/21 Rx [Basaglar Kwikpen U-100] Allergies Allergy/AdvReac Type Severity Reaction Status Date / Time sulfamethoxazole AdvReac Nausea & Verified 01/28/21 14:52 [From Bactrim] Vomiting,dyspnea trimethoprim [From Bactrim] AdvReac Nausea & Verified 01/28/21 14:52 Vomiting,dyspnea Surgical - Exam Vital Signs Pulse Resp Pulse Ox 90 20 100 01/28/21 14:09 01/28/21 14:09 01/28/21 14:09 Results - Labs 02/04/21 04:30 02/04/21 04:30 Abnormal Lab Results - Last 24 Hours (Table) 02/03/21 02/03/21 02/03/21 Range/Units 18:11 23:53 23:59 RBC (3.80-5.40) m/uL Hgb (11.4-16.0) gm/dL Hct (34.0-46.0) % RDW (11.5-15.5) % Neutrophils # (1.3-7.7) k/uL ABG HCO3 (21-25) mmol/L ABG Total CO2 (19-24) mmol/L ABG O2 Saturation (94-97) % BUN (7-17) mg/dL Creatinine (0.52-1.04) mg/dL Glucose (74-99) mg/dL POC Glucose (mg/dL) 275 H 255 H 242 H (75-99) mg/dL Alkaline Phosphatase (38-126) U/L Total Protein (6.3-8.2) g/dL Albumin (3.5-5.0) g/dL 02/04/21 02/04/21 02/04/21 Range/Units 04:16 04:30 04:30 RBC 2.91 L (3.80-5.40) m/uL Hgb 9.0 L (11.4-16.0) gm/dL Hct 28.5 L (34.0-46.0) % RDW 17.3 H (11.5-15.5) % Neutrophils # 8.4 H (1.3-7.7) k/uL ABG HCO3 27 H (21-25) mmol/L ABG Total CO2 28 H (19-24) mmol/L ABG O2 Saturation 97.3 H (94-97) % BUN 50 H (7-17) mg/dL Creatinine 4.34 H (0.52-1.04) mg/dL Glucose 250 H (74-99) mg/dL POC Glucose (mg/dL) (75-99) mg/dL Alkaline Phosphatase 161 H (38-126) U/L Total Protein 6.1 L (6.3-8.2) g/dL Albumin 2.9 L (3.5-5.0) g/dL 02/04/21 02/04/21 Range/Units 06:18 11:37 RBC (3.80-5.40) m/uL Hgb (11.4-16.0) gm/dL Hct (34.0-46.0) % RDW (11.5-15.5) % Neutrophils # (1.3-7.7) k/uL ABG HCO3 (21-25) mmol/L ABG Total CO2 (19-24) mmol/L ABG O2 Saturation (94-97) % BUN (7-17) mg/dL Creatinine (0.52-1.04) mg/dL Glucose (74-99) mg/dL POC Glucose (mg/dL) 277 H 219 H (75-99) mg/dL Alkaline Phosphatase (38-126) U/L Total Protein (6.3-8.2) g/dL Albumin (3.5-5.0) g/dL Diabetes panel 02/04/21 Range/Units 04:30 Sodium 137 (137-145) mmol/L Potassium 3.7 (3.5-5.1) mmol/L Chloride 99 (98-107) mmol/L Carbon Dioxide 25 (22-30) mmol/L BUN 50 H (7-17) mg/dL Creatinine 4.34 H (0.52-1.04) mg/dL Glucose 250 H (74-99) mg/dL Calcium 8.9 (8.4-10.2) mg/dL AST 24 (14-36) U/L ALT 12 (4-34) U/L Alkaline Phosphatase 161 H (38-126) U/L Total Protein 6.1 L (6.3-8.2) g/dL Albumin 2.9 L (3.5-5.0) g/dL Calcium panel 02/04/21 Range/Units 04:30 Calcium 8.9 (8.4-10.2) mg/dL Albumin 2.9 L (3.5-5.0) g/dL Pituitary panel 02/04/21 Range/Units 04:30 Sodium 137 (137-145) mmol/L Potassium 3.7 (3.5-5.1) mmol/L Chloride 99 (98-107) mmol/L Carbon Dioxide 25 (22-30) mmol/L BUN 50 H (7-17) mg/dL Creatinine 4.34 H (0.52-1.04) mg/dL Glucose 250 H (74-99) mg/dL Calcium 8.9 (8.4-10.2) mg/dL Adrenal panel 02/04/21 Range/Units 04:30 Sodium 137 (137-145) mmol/L Potassium 3.7 (3.5-5.1) mmol/L Chloride 99 (98-107) mmol/L Carbon Dioxide 25 (22-30) mmol/L BUN 50 H (7-17) mg/dL Creatinine 4.34 H (0.52-1.04) mg/dL Glucose 250 H (74-99) mg/dL Calcium 8.9 (8.4-10.2) mg/dL Total Bilirubin 0.4 (0.2-1.3) mg/dL AST 24 (14-36) U/L ALT 12 (4-34) U/L Alkaline Phosphatase 161 H (38-126) U/L Total Protein 6.1 L (6.3-8.2) g/dL Albumin 2.9 L (3.5-5.0) g/dL
--- NOTE | 2021-02-04 15:46 | P.PN ---
Subjective Patient is a pleasant 65-year-old the female was discharged from my service yesterday after she was treated for encephalopathy related to hypoglycemia. Patient had a cardiorespiratory arrest was pretty functional ambulate and go shopping at the time when she had a cardiorespiratory arrest, CPR was started and patient was later found to have went to her tachycardia, patient returned to sinus rhythm and 25 minutes subsequently was intubated and brought to emergency department. Patient did have history of ventricular tachycardia in the past pa tient was started on amiodarone at that time. Patient does have medical multiple medical problems including end-stage renal disease dialysis dependent chest x-ray showing significant infiltrate in the right lung mostly appears to be volume overload patient does have low-grade fever which can be secondary to cardiorespiratory arrest but patient was empirically started on Zosyn and patient is being admitted to ICU patient is presently intubated with FiO2 of 100% PEEP of 5 patient is breathing over the ventilator patient is on assist- control/volume controlled ventilation, on propofol patient does have conjunctival and corneal reflexes, does have gag reflex. No significant electrolyte abnormalities were appreciated. 01/29/2021 Patient is on ventilator support patient the doesn't have any significant response in after discontinue additional of sedation for about 4 hours. Patient was evaluated by multiple consultants including neurology patient had an EEG to assess for the brain function because of significant anoxic brain injury, patient has significant background slowing slowing encephalopathy. Patient still has brainstem reflexes that were described above. Patient had an echo Wh ich showed normal ejection fraction and grade 1 diastolic dysfunction. 01/30/2021 Patient was started back on propofol as patient is not tolerating ventilator patient remains on ventilatory support . Patient will undergo he hemodialysis tomorrow. Patient is on cisatracurium as well. Patient is undergoing repeat EEG to assess the brain function patient still has ranged stem reflexes at this time. 01/31/2021 Patient remains in intensity and neck done ventilatory support. Patient had a repeat EEG which she appeared to be bit better. Patient does have corneal reflex but doesn't have any conjunctival reflux, patient does have cough reflex biting on the ventilator. Patient remains on the propofol drip and patient neurological assessment it to be done off sedation although patient doesn't appear to be tolerating off sedation. Patient had dialysis today. 02/01/2021 Patient's sedation is being turned off at this time patient will be evaluated or sedation by neurology. Patient has sluggish are absent pupillary reflexes patient is still barely breathing over the ventilator at this time. Chest x-ray showing left lower lobe infiltrate today patient is on the NG tube feedings patient can use to be on Keppra prophylactically there is focal slowing on the EEG without any epileptiform discharges 02/02/2021 Patient is on sedation no symptom response patient has a corneal reflex but no conjunctival reflux patient does have some gag reflex as well although not responding. Patient was evaluated by neurology patient apparently had significant edema on the CT of the head that was done on january. Aspirin neurology chance of reasonable recovery is low and discussed with neurology and probably call family to discuss overall goals of care including comfort care terminal wean. 02/03/2021 Patient doesn't have any significant improvement in spite of hours of for holding off sedation. Doesn't appear to have significant improvement. Patient clinical condition and overall neurological status is bit worse. Discussed with the patient's family wants to continue the care at this time. 02/04/2021 Patient is off sedation for more than 30 hours without any significant improvem ent in her neurological status. Chest x-ray showing pulmonary edema patient will undergo hemodialysis today patient is unclear reflex her blood pressure. Patient is scheduled for tracheostomy and PEG tube placement on Sunday Review of systems: Unable to obtain as patient is intubated All inpatient medications were reviewed and appropriate changes in these medications as dictated in the interval history and assessment and plan. Objective - Vital Signs Vital signs: Vital Signs Temp 95.9 F L 02/04/21 12:00 Pulse 64 02/04/21 15:00 Resp 14 02/04/21 15:00 BP 155/66 02/03/21 04:30 Pulse Ox 98 02/04/21 15:00 Intake & Output 02/03/21 02/04/21 02/04/21 18:59 06:59 18:59 Intake Total 1027.259 856.567 342.9 Output Total 0 0 0 Balance 1027.259 856.567 342.9 Weight 103.6 kg Intake: IV 330 270 295 0.9 @ 10ml/hr 130 70 95 Piperacillin-Tazobactam 3 100 100 100 .375 gm In Sodium Chloride 0.9% 100 ml @ 25 mls/hr IVPB Q12HR [facility] Rx #:[id number] levETIRAcetam IV 500 mg 100 100 100 In Sodium Chloride 0.9% 100 ml @ 400 mls/hr IVPB Q12HR [facility] Rx#:[id number] Intake, IV Titration 100.259 47.567 8.9 Amount Clevidipine Butyrate 25 0 47.567 8.9 mg In Empty Bag 1 bag @ 1 MG/HR 2 mls/hr IV .Q24H [facility] Rx#:[id number] propofoL 1,000 mg In 100.259 Empty Bag 1 bag @ Titrate IV .Q0M [facility] Rx#: [id number] Tube Feeding 507 429 39 Other 90 110 Output: Urine 0 0 0 Other: # Voids 0 # Bowel Movements 1 ABP, PAP, CO, CI - Last Documented Arterial Blood Pressure 155/51 - Exam PHYSICAL EXAMINATION: GENERAL: Patient is intubated sedated, does have an NG tube with some bloody drainage from the NG tube. Patient has a central line and arterial line HEENT: Pupils are round and and constricted at this time because of propofol. EOMI. No scleral icterus. No conjunctival pallor. Normocephalic, atraumatic. No pharyngeal erythema. No thyromegaly. CARDIOVASCULAR: S1 and S2 present. No murmurs, rubs, or gallops. PULMONARY: Chest is clear to auscultation, no wheezing or crackles. ABDOMEN: Soft, nontender, nondistended, normoactive bowel sounds. No palpable organomegaly. MUSCULOSKELETAL: No joint swelling or deformity. EXTREMITIES: No cyanosis, clubbing, bilateral pedal edema which is chronic NEUROLOGICAL: Intubated sedated but does have brainstem reflexes, patient doesn't have cough reflex is breathing over the ventilator, does have gag reflex. SKIN: Stage I and 2 ulcers which doesn't appear to be infected - Labs CBC & Chem 7: 02/04/21 04:30 02/04/21 04:30 Labs: Abnormal Lab Results - Last 24 Hours (Table) 02/03/21 02/03/21 02/03/21 Range/Units 18:11 23:53 23:59 RBC (3.80-5.40) m/uL Hgb (11.4-16.0) gm/dL Hct (34.0-46.0) % RDW (11.5-15.5) % Neutrophils # (1.3-7.7) k/uL ABG HCO3 (21-25) mmol/L ABG Total CO2 (19-24) mmol/L ABG O2 Saturation (94-97) % BUN (7-17) mg/dL Creatinine (0.52-1.04) mg/dL Glucose (74-99) mg/dL POC Glucose (mg/dL) 275 H 255 H 242 H (75-99) mg/dL Alkaline Phosphatase (38-126) U/L Total Protein (6.3-8.2) g/dL Albumin (3.5-5.0) g/dL 02/04/21 02/04/21 02/04/21 Range/Units 04:16 04:30 04:30 RBC 2.91 L (3.80-5.40) m/uL Hgb 9.0 L (11.4-16.0) gm/dL Hct 28.5 L (34.0-46.0) % RDW 17.3 H (11.5-15.5) % Neutrophils # 8.4 H (1.3-7.7) k/uL ABG HCO3 27 H (21-25) mmol/L ABG Total CO2 28 H (19-24) mmol/L ABG O2 Saturation 97.3 H (94-97) % BUN 50 H (7-17) mg/dL Creatinine 4.34 H (0.52-1.04) mg/dL Glucose 250 H (74-99) mg/dL POC Glucose (mg/dL) (75-99) mg/dL Alkaline Phosphatase 161 H (38-126) U/L Total Protein 6.1 L (6.3-8.2) g/dL Albumin 2.9 L (3.5-5.0) g/dL 02/04/21 02/04/21 Range/Units 06:18 11:37 RBC (3.80-5.40) m/uL Hgb (11.4-16.0) gm/dL Hct (34.0-46.0) % RDW (11.5-15.5) % Neutrophils # (1.3-7.7) k/uL ABG HCO3 (21-25) mmol/L ABG Total CO2 (19-24) mmol/L ABG O2 Saturation (94-97) % BUN (7-17) mg/dL Creatinine (0.52-1.04) mg/dL Glucose (74-99) mg/dL POC Glucose (mg/dL) 277 H 219 H (75-99) mg/dL Alkaline Phosphatase (38-126) U/L Total Protein (6.3-8.2) g/dL Albumin (3.5-5.0) g/dL Assessment and Plan Plan: -Cardiorespiratory arrest leading to respiratory failure: Secondary to ventricular tachycardia patient was evaluated by cardiology echocardiogram as mentioned above . Repeat EEG showed some improvement in background slowing. Patient is on and off sedation no significant improvement in mental status or sedation. Patient has significant anoxic brain injury over all prognosis is poor, possibility of reasonable neurological recovery is low same thing was discussed with the family today. For now family wants to continue the care. Patient will undergo tracheostomy and PEG tube placement on Sunday -Acute hypoxic respiratory failure leading to anoxic brain injury. -Volume overload: Secondary to end-stage renal disease nephrology evaluated the patient. Patient is undergoing hemodialysis as scheduled -Fever: Most probably secondary to cardiorespiratory arrest blood cultures so far are negative except for sputum cultures showing gram-positive bacilli and cocci which is usually oral cavity bacteria -Recent covid 19 infection and month of October, patient had a repeat Covid 19 test that was positive again this is probably not a new infection but residual inactive RNA fragments. -End-stage renal disease, dialysis dependent -Type 2 diabetes mellitus patient is on sliding scale will hold off on long-act ing insulin history of DVT for which patient is on Eliquis -Hypertension -Diabetic peripheral neuropathy -bilateral lower extremity ulcers doesn't appear to have cellulitis but does have chronic lymphedema Patient prognosis is extremely poor.
[2021-02-04] MEDS: ALBUTEROL HFA INHALER INHALATION PRN ×2 (16:19→20:29)
[2021-02-04 17:16] LABS: Glucose,Whole Blood 213 mg/dL (75-99)
[2021-02-04] MEDS: levETIRAcetam 500 MG TAB PO SCH (18:58)
--- NOTE | 2021-02-04 20:10 | PN ---
PROGRESS NOTE Patient is seen for followup for end-stage renal disease. Patient is maintained on the vent. She has had anoxic encephalopathy and has not had any purposeful movements. She has been off of sedation for more than 24 hours. Family was contacted regarding CODE STATUS change, and it appears that they may not be ready yet. Patient is scheduled for hemodialysis today. PHYSICAL EXAMINATION: On examination today, blood pressure 154/51, heart rate 66 per minute. Patient is afebrile. No change in her general exam as per nursing staff. She is tolerating her tube feeds, and again no purposeful movements after being off of sedation for more than 24 hours. Patient is being followed by Neurology. LABS: Reviewed. Sodium 137, potassium 3.7, BUN 50, serum creatinine 4.34. ASSESSMENT: 1. End-stage renal disease, on hemodialysis on a Sunday, Sunday, Sunday schedule. 2. COVID pneumonia. 3. Acute hypoxic respiratory failure. 4. Status post cardiopulmonary arrest. 5. Anoxic encephalopathy with no improvement in mentation after being off of sedation for more than 30 hours now. PLAN: We will plan to dialyze the patient today. The case will be discussed again with the family over the weekend. There will be plans for trach and PEG if family would like to continue with aggressive medical treatment. MMODL / IJN: [id number] /
--- NOTE | 2021-02-04 21:12 | P.PN ---
Subjective Progress Note Date: 02/04/21 02/04/2021: Patient has been off sedation since 8 AM yesterday. Now she is off sedation for over 30 hours. No meaningful response. Patient does open her eyes, but does not track, does not make eye contact, and does not follow commands. 02/03/2021: Patient has been off sedation since 8 AM. No significant improvement. No seizure activity. Patient continues to be comatose, on mechanical ventilation. Please refer to examination below. 02/02/2021: Patient essentially unchanged. Per nursing report, propofol was discontinued for about 1-1/2 hours. The vent kept on alarming while the sedation was discontinued. She started coughing and gagging and blood pressure went up. There was no meaningful response noted. Now back on propofol 20 g. 02/01/2021: Patient was seen for a follow-up at 12:30 PM. Patient sedation was discontinued at 11:30 AM. I saw her almost one hour after she was off sedation. Patient continued to be comatose, not responding to any internal or external stimuli. No seizure-like activity noted. Patient apparently started biting on the ET tube, started to bite on her tongue. Fortunately she did not bite her tongue, as propofol was resumed and the tongue was gently pushed inside. 01/31/2021: Patient is a 65-year-old female came to the hospital on 01/28/2021 at 2:07 PM after a cardiac arrest with the downtime of 25 minutes. Patient had undergone hemodialysis in the morning, then for errands with her , came back home and had mentioned that she was not feeling well, vomited before she collapsed and had cardiac arrest. Patient's family started CPR before EMS arrived. Patient was shocked twice, appendectomy was given once and was intubated. Patient currently on propofol 20 g. Patient was initially seen by Dr. Lenny Fernandez. Please refer to his note for details. Patient has developed encephalopathy probably multifactorial due to anoxic brain injury from prolonged cardiac arrest, component of metabolic encephalopathy with uncontrolled diabetes, hypotension, underlying pneumonia from Covid. Patient also has history of end-stage renal disease on hemodialysis. Patient had an EEG performed yesterday, which revealed background slowing sugge stive of moderate encephalopathy. The bilateral frontal intermittent rhythmic delta activity is due to toxic metabolic disturbance or structural lesion. No epileptiform activity was seen. Patient's background has improved as compared to the EEG from the day prior for 01/15/2021. Patient's blood test shows WBC 10.3 hemoglobin 8.0, platelets 328. Sodium 130 potassium 4.4, BUN 33, creatinine 6.32. Hepatic panel normal. CT head from 01/31/2021 shows no acute process. Per nursing report, when sedation is decreased, patient starts biting on the ET tube and her breathing becomes fast. CT head reported as no acute process per radiology report from 01/31/2021. Although on my review, there is evidence of generalized cerebral edema, somewhat with effacement of the sulci as compared to the computed tomography scan from 01/29/2021. Objective - Vital Signs Vital signs: Vital Signs Temp 98.2 F 02/04/21 16:00 Pulse 69 02/04/21 19:00 Resp 19 02/04/21 19:00 BP 155/66 02/03/21 04:30 Pulse Ox 97 02/04/21 19:00 Intake & Output 02/04/21 02/04/21 02/05/21 06:59 18:59 06:59 Intake Total 856.567 418.833 Output Total 0 0 Balance 856.567 418.833 Weight 103.6 kg Intake: IV 270 355 0.9 @ 10ml/hr 70 155 Piperacillin-Tazobactam 3 100 100 .375 gm In Sodium Chloride 0.9% 100 ml @ 25 mls/hr IVPB Q12HR [facility] Rx #:[id number] levETIRAcetam IV 500 mg 100 100 In Sodium Chloride 0.9% 100 ml @ 400 mls/hr IVPB Q12HR [facility] Rx#:[id number] Intake, IV Titration 47.567 24.833 Amount Clevidipine Butyrate 25 47.567 24.833 mg In Empty Bag 1 bag @ 1 MG/HR 2 mls/hr IV .Q24H [facility] Rx#:[id number] Tube Feeding 429 39 Other 110 Output: Urine 0 0 Other: # Bowel Movements 1 1 ABP, PAP, CO, CI - Last Documented Arterial Blood Pressure 153/60 - Exam On examination patient is an elderly female, who is unresponsive. Patient is opening her eyes spontaneously, but her gaze is upwards, roving eye movements, does not track, does not make eye contact or follow command. Patient does not respond to any painful stimuli. Oculocephalics are positive, corneals are positive. Patient pupils are reacting. Patient does have a cough and gag reflex. No seizure activity noticed. Tone is equal bilaterally. Patient has peripheral edema. No response noted with nailbed pressure in either upper or lower extremities. Plantars are flat. Patient has peripheral edema. - Labs CBC & Chem 7: 02/04/21 04:30 02/04/21 04:30 Labs: Abnormal Lab Results - Last 24 Hours (Table) 02/03/21 02/03/21 02/04/21 Range/Units 23:53 23:59 04:16 RBC (3.80-5.40) m/uL Hgb (11.4-16.0) gm/dL Hct (34.0-46.0) % RDW (11.5-15.5) % Neutrophils # (1.3-7.7) k/uL ABG HCO3 27 H (21-25) mmol/L ABG Total CO2 28 H (19-24) mmol/L ABG O2 Saturation 97.3 H (94-97) % BUN (7-17) mg/dL Creatinine (0.52-1.04) mg/dL Glucose (74-99) mg/dL POC Glucose (mg/dL) 255 H 242 H (75-99) mg/dL Alkaline Phosphatase (38-126) U/L Total Protein (6.3-8.2) g/dL Albumin (3.5-5.0) g/dL 02/04/21 02/04/21 02/04/21 Range/Units 04:30 04:30 06:18 RBC 2.91 L (3.80-5.40) m/uL Hgb 9.0 L (11.4-16.0) gm/dL Hct 28.5 L (34.0-46.0) % RDW 17.3 H (11.5-15.5) % Neutrophils # 8.4 H (1.3-7.7) k/uL ABG HCO3 (21-25) mmol/L ABG Total CO2 (19-24) mmol/L ABG O2 Saturation (94-97) % BUN 50 H (7-17) mg/dL Creatinine 4.34 H (0.52-1.04) mg/dL Glucose 250 H (74-99) mg/dL POC Glucose (mg/dL) 277 H (75-99) mg/dL Alkaline Phosphatase 161 H (38-126) U/L Total Protein 6.1 L (6.3-8.2) g/dL Albumin 2.9 L (3.5-5.0) g/dL 02/04/21 02/04/21 Range/Units 11:37 17:14 RBC (3.80-5.40) m/uL Hgb (11.4-16.0) gm/dL Hct (34.0-46.0) % RDW (11.5-15.5) % Neutrophils # (1.3-7.7) k/uL ABG HCO3 (21-25) mmol/L ABG Total CO2 (19-24) mmol/L ABG O2 Saturation (94-97) % BUN (7-17) mg/dL Creatinine (0.52-1.04) mg/dL Glucose (74-99) mg/dL POC Glucose (mg/dL) 219 H 213 H (75-99) mg/dL Alkaline Phosphatase (38-126) U/L Total Protein (6.3-8.2) g/dL Albumin (3.5-5.0) g/dL Assessment and Plan Assessment: * Status post cardiac arrest with anoxic encephalopathy. Although patient is opening her eyes, but is not tracking, or showing meaningful response yet. * Probable superimposed component of metabolic encephalopathy. * End-stage renal disease on hemodialysis. * Acute Covid-19 related pneumonia. * Anemia. Plan: * Patient is day #7 post cardiac arrest. Patient is off sedation for last 30+ hours. Patient has started opening eyes, but not tracking, or following any commands. * Patient computed tomography scan of the head from 01/31/2021 shows mild generalized cerebral edema, with slight effacement of the sulci, as per my review, although the radiologist reported normal. * Prognosis appears very guarded for meaningful recovery at this time based upon lack of significant clinical improvement, and also multiple comorbid conditions. * Family requesting repeat EEG. * Possible trach and PEG placement on Sunday. * Dr. Friedman covering weekend. Please call neurology for any concerns over the weekend. Dr. Lenny Fernandez will resume neurology service on Sunday.
[2021-02-04] MEDS: amLODIPine 10 MG TAB PO SCH (21:50)
[2021-02-05 00:08] LABS: Glucose,Whole Blood 258 mg/dL (75-99)
[2021-02-05] MEDS: INSULIN ASPART (NovoLOG) 100 UNIT/ML VIAL SQ SCH ×4 (00:26→18:09)
[2021-02-05] MEDS: CLEVIDIPINE BUTYRATE 25 MG in EMPTY BAG 1 BAG IV SCH ×2 (03:05→06:59)
[2021-02-05 05:49] LABS: ABG HCO3 25 mmol/L (21-25); ABG Oxygen Saturation 97.5 % (94-97); ABG PCO2 38 mmHg (35-45); ABG PH 7.43 (7.35-7.45); ABG PO2 97 mmHg (83-108); ABG TCO2 27 mmol/L (19-24); Allen Test Performed? Yes
[2021-02-05 05:58] LABS: D-Dimer 5.59 mg/L FEU (<0.60)
[2021-02-05 06:05] LABS: Glucose,Whole Blood 383 mg/dL (75-99)
[2021-02-05] MEDS: ALBUTEROL HFA INHALER INHALATION PRN ×4 (07:36→20:15)
[2021-02-05] MEDS: CHLORHEXIDINE GLUCONATE 15 ML CUP MUCOUS MEM SCH ×2 (10:00→20:51)
[2021-02-05] MEDS: CALCIUM ACETATE 667 MG TAB PO SCH ×2 (10:00→18:09)
[2021-02-05] MEDS: ASPIRIN 81 MG PO SCH (10:00)
[2021-02-05] MEDS: ZINC SULFATE 220 MG CAP PO SCH ×2 (10:00→20:51)
[2021-02-05] MEDS: PANTOPRAZOLE 40 MG/10 ML VIAL IVP SCH ×2 (10:00→20:51)
[2021-02-05] MEDS: levETIRAcetam IV 500 MG in SODIUM CHLORIDE 0.9% 100 ML IVPB SCH ×2 (10:01→20:51)
[2021-02-05] MEDS: APIXABAN 2.5 MG TABLET PO SCH ×2 (10:01→20:51)
[2021-02-05] MEDS: DEXAMETHASONE SOD PHOSPHATE 10 MG/ML 1 ML VIAL IV SCH (10:02)
--- NOTE | 2021-02-05 10:19 | P.PN ---
Subjective Patient is seen in follow-up for end-stage renal disease. She is maintained on hemodialysis on Sunday schedule. Tolerated 2 L ultrafiltration yesterday. Intubated. On 30% FiO2. Vital signs are stable. No gross edema noted. Intubated. Exam discussed in detail with the nurse. Objective - Vital Signs Vital signs: Vital Signs Temp 99.0 F 02/05/21 04:00 Pulse 77 02/05/21 07:00 Resp 24 02/05/21 07:00 BP 147/67 02/05/21 00:00 Pulse Ox 96 02/05/21 07:00 Intake & Output 02/04/21 02/05/21 02/05/21 18:59 06:59 18:59 Intake Total 418.833 848.467 47 Output Total 0 Balance 418.833 848.467 47 Weight 103.6 kg Intake: IV 355 323 13 0.9 @ 10ml/hr 155 90 10 Sabine Flush 33 3 Piperacillin-Tazobactam 3 100 100 .375 gm In Sodium Chloride 0.9% 100 ml @ 25 mls/hr IVPB Q12HR [facility] Rx #:[id number] levETIRAcetam IV 500 mg 100 100 In Sodium Chloride 0.9% 100 ml @ 400 mls/hr IVPB Q12HR [facility] Rx#:[id number] Intake, IV Titration 24.833 57.467 Amount Clevidipine Butyrate 25 24.833 57.467 mg In Empty Bag 1 bag @ 1 MG/HR 2 mls/hr IV .Q24H [facility] Rx#:[id number] Tube Feeding 39 408 34 Other 60 Output: Urine 0 Other: # Bowel Movements 1 1 ABP, PAP, CO, CI - Last Documented Arterial Blood Pressure 156/56 - Labs CBC & Chem 7: 02/04/21 04:30 02/04/21 04:30 Labs: Abnormal Lab Results - Last 24 Hours (Table) 02/04/21 02/04/21 02/05/21 Range/Units 11:37 17:14 00:06 Fibrinogen (200-500) mg/dL D-Dimer (<0.60) mg/L FEU ABG Total CO2 (19-24) mmol/L ABG O2 Saturation (94-97) % POC Glucose (mg/dL) 219 H 213 H 258 H (75-99) mg/dL C-Reactive Protein (<10.0) mg/L 02/05/21 02/05/21 02/05/21 Range/Units 05:20 05:20 05:41 Fibrinogen 653 H (200-500) mg/dL D-Dimer 5.59 H (<0.60) mg/L FEU ABG Total CO2 27 H (19-24) mmol/L ABG O2 Saturation 97.5 H (94-97) % POC Glucose (mg/dL) (75-99) mg/dL C-Reactive Protein 39.0 H (<10.0) mg/L 02/05/21 Range/Units 06:04 Fibrinogen (200-500) mg/dL D-Dimer (<0.60) mg/L FEU ABG Total CO2 (19-24) mmol/L ABG O2 Saturation (94-97) % POC Glucose (mg/dL) 383 H (75-99) mg/dL C-Reactive Protein (<10.0) mg/L Assessment and Plan Plan: Assessment: 1. End-stage renal disease maintained on hemodialysis on Sunday schedule. 2. Status post cardiopulmonary arrest. 3. Anoxic brain injury. 4. Hypertension with chronic kidney disease. Stable. 5. Chronic kidney disease mineral bone disease maintained on PhosLo. 6. Diabetes mellitus. 7. COVID-19 positive. On steroids and zinc. Plan: Hemodialysis on Sunday. Family considering tracheostomy and PEG tube placement.
--- NOTE | 2021-02-05 10:40 | P.PN ---
Subjective Progress Note Date: 02/05/21 Principal diagnosis: Respiratory failure Patient stable on the ventilator. She is on a heparin drip. No bleeding. No obvious discomfort. Objective - Vital Signs Vital signs: Vital Signs Temp 99.0 F 02/05/21 04:00 Pulse 77 02/05/21 07:00 Resp 24 02/05/21 07:00 BP 147/67 02/05/21 00:00 Pulse Ox 96 02/05/21 07:00 Intake & Output 02/04/21 02/05/21 02/05/21 18:59 06:59 18:59 Intake Total 418.833 848.467 47 Output Total 0 Balance 418.833 848.467 47 Weight 103.6 kg Intake: IV 355 323 13 0.9 @ 10ml/hr 155 90 10 Sabine Flush 33 3 Piperacillin-Tazobactam 3 100 100 .375 gm In Sodium Chloride 0.9% 100 ml @ 25 mls/hr IVPB Q12HR [facility] Rx #:[id number] levETIRAcetam IV 500 mg 100 100 In Sodium Chloride 0.9% 100 ml @ 400 mls/hr IVPB Q12HR [facility] Rx#:[id number] Intake, IV Titration 24.833 57.467 Amount Clevidipine Butyrate 25 24.833 57.467 mg In Empty Bag 1 bag @ 1 MG/HR 2 mls/hr IV .Q24H [facility] Rx#:[id number] Tube Feeding 39 408 34 Other 60 Output: Urine 0 Other: # Bowel Movements 1 1 ABP, PAP, CO, CI - Last Documented Arterial Blood Pressure 156/56 - Exam Abdomen: Soft, nontender, nondistended - Labs CBC & Chem 7: 02/04/21 04:30 02/04/21 04:30 Labs: Abnormal Lab Results - Last 24 Hours (Table) 02/04/21 02/04/21 02/05/21 Range/Units 11:37 17:14 00:06 Fibrinogen (200-500) mg/dL D-Dimer (<0.60) mg/L FEU ABG Total CO2 (19-24) mmol/L ABG O2 Saturation (94-97) % POC Glucose (mg/dL) 219 H 213 H 258 H (75-99) mg/dL C-Reactive Protein (<10.0) mg/L 02/05/21 02/05/21 02/05/21 Range/Units 05:20 05:20 05:41 Fibrinogen 653 H (200-500) mg/dL D-Dimer 5.59 H (<0.60) mg/L FEU ABG Total CO2 27 H (19-24) mmol/L ABG O2 Saturation 97.5 H (94-97) % POC Glucose (mg/dL) (75-99) mg/dL C-Reactive Protein 39.0 H (<10.0) mg/L 02/05/21 Range/Units 06:04 Fibrinogen (200-500) mg/dL D-Dimer (<0.60) mg/L FEU ABG Total CO2 (19-24) mmol/L ABG O2 Saturation (94-97) % POC Glucose (mg/dL) 383 H (75-99) mg/dL C-Reactive Protein (<10.0) mg/L Assessment and Plan (1) Cardiac arrest Narrative/Plan: Patient remains stable on the ventilator. Plans are underway for tracheostomy and PEG tube placement on Sunday. Hold heparin on Sunday morning. Will follow. Current Visit: Yes Status: Acute Code(s): I46.9 - CARDIAC ARREST, CAUSE UNSPECIFIED SNOMED Code(s): 095350560
--- NOTE | 2021-02-05 10:40 | XR ---
EXAMINATION TYPE: XR chest 1V DATE OF EXAM: 02/05/2021 COMPARISON: 02/04/2021 INDICATION: Short of breath TECHNIQUE: Single frontal view of the chest is obtained. FINDINGS: The heart size is mildly prominent. The pulmonary vasculature is normal. Scattered periventricular increased lung markings are present. Some mild infiltrate is at the left ba se. Findings appear similar. There is an endotracheal tube which is at the level of the ady approximately 3 mm above the ady . This should be pulled back about 2 cm. Nasogastric tube transverses the thorax. IMPRESSION: 1. Endotracheal tube tip 3 mm above the ady. This should be pulled back 2 cm. 2. Mild periventricular and left lower lobe infiltrate which is nonspecific.
[2021-02-05 11:28] LABS: Glucose,Whole Blood 355 mg/dL (75-99)
[2021-02-05 11:56] LABS: Glucose,Whole Blood 378 mg/dL (75-99)
--- NOTE | 2021-02-05 11:59 | P.PN ---
Subjective Progress Note Date: 02/05/21 Principal diagnosis: Acute hypoxemic respiratory failure. This is a 65-year-old female with history of multiple medical problems, known to have end-stage renal disease, on hemodialysis, type 2 diabetes, coronary artery disease, cardiogenic in the form of ventricular tachycardia, patient had had hemodialysis yesterday, and she went home felt nauseated, while at home the patient had a sudden cardiac arrest at 1310. Family initiated CPR according to EMS, fire department arrived to the scene and found the patient to be unresponsive, in ventricular fibrillation. She was defibrillated, and CPR was continued. Patient received epinephrine, and after the second the defibrillat ion, there was return of spontaneous circulation. Down time was in the range of 20 minutes. Patient was brought into the emergency room, kept on mechanical ventilation, she was hemodynamically stable not requiring any pressors. Transferred to the ICU, and I was asked to see her on consultation. The major concern at this point is the fact that the patient had a prolonged downtime, and she most likely sustained anoxic brain injury. Hence a neurological consultation was initiated on this patient. I discontinued all her sedation and we will arrange for neurological consultation. Ventilator oreilly the patient is on assist control rate of 14, volume 350 FiO2 went down from 60% to 45%, ABG crow wed a pO2 of 130 pCO2 of 36 pH of 7.52. All this information was obtained from the chart, no family members available at bedside Patient was reevaluated today on 01/30/2021, remains in the ICU, intubated and mechanically ventilated. Her ventilator settings are assist control rate of 14 tidal volume of 350 FiO2 is 50% PEEP of 5. Patient remains on propofol at 30 mcg/kg/m, remains on antibiotics for her cellulitis she is on Zosyn. Patient is only withdrawing to painful stimuli, but no purposeful movement. She was seen by neurology on consultation, and neurology feels that the patient has anoxic brain injury from prolonged cardiac arrest along with metabolic encephalopathy. In addition to all of this she has underlying covid 19 pneumonia. In addition to this, the patient has history of end-stage renal disease on hemodialysis, she also had history of DVT maintained on all across, and history of peripheral neuropathy. Labs today showed a pO2 of 123 pCO2 of 42 pH of 7.47 her WBC count is 11.9 hemoglobin is 8.6. BUN is 27 creatinine is 4.63. On 01/31/2002, patient's follow-up in the intensive care unit, she remains intubated, sedated, currently on assist control with a rate of 14, tidal volumes 350, FiO2 of 50%, and PEEP of 5, this morning's blood gases show pO2 146, pCO2 44, and pH of 7.39 and subsequently FiO2 was dropped down to 40%, currently on 0.9 ns at 10 ML per hour, Diprivan is at 20 mics per kilo per minute, no other drips, nutritional support in the form of vital high protein at 30, with a goal of 39. Patient is currently receiving hemodialysis treatment, patient is a chronic hemodialysis patient on the Sunday schedule. Patient apparently failed daily interruption of sedation, has not been following purposeful commands, she is only withdrawing to painful stimuli, there is no purposeful movement. Patient has been seen in consultation by neurology and followed by neurology and there is a possibility of anoxic brain injury from prolonged cardiac arrest along with metabolic encephalopathy. Patient tested positive for COVID 19 this admission. Chest x-ray today shows diffuse interstitial densities. Brain CT showed no acute intracranial process. EEG on 2020 showed background slowing suggestive of moderate encephalopathy, with no focal slowing, epileptiform discharge or seizures. Patient is receiving Keppra. Patient is on empiric antibiotics in the form of Zosyn. She is on Eliquis at 2.5 mg twice daily previous history of DVT, and possible paroxysmal A. fib. Cardiology is following in regards to V. fib arrest, there has been no further arrhythmias overnight On 02/01/2021 patient is seen in follow-up in the intensive care unit, patient remains sedated, intubated on assist control mode of ventilation with a rate of 14, tidal significant, FiO2 of 40% and PEEP of 5, his blood gases show pO2 of 85, pCO2 43 pH is 7.43. Today's chest x-ray shows stable left lower lobe infiltrate. FiO2 is 40%. No acute events overnight. Patient receiving initiation of support informal vital high protein at 39 with a goal of 39 ML per hour. EEG was done on 01/30/2021, showing abnormal routine EEG, with background slowing suggestive of moderate encephalopathy due to toxic metabolic disturbance. There was no focal slowing or epileptiform discharge or seizure. Patient continues on Keppra. Neurology is following. There has been no recurrence of arrhythmia, cartiology is following. Patient is on Eliquis for paroxysmal atrial fibrillation Progress note dated 02/02/2021. This is a 65-year-old female, again seen here in the intensive care unit. She currently is on propofol at 20 mcg/kg/m, and vital high protein at 39 mL an hour, which is goal. She remains on the mechanical ventilator, on the assist control mode, rate of 14, tidal volume 350, FiO2 40%, and PEEP of 5. Blood gases show a PaO2 of 77, PaCO2 43, and a pH is 7.4. We will do a daily interruption of sedation today. Current white count 8.2, hemoglobin 8.1, hematocrit 26.1, and platelet count 295,000. Her d-dimer is 4.12. Sodium 139, potassium 3.9, chlorides 103, CO2 26, anion gap 10, the 135, and creatinine 4.78. Microbiology is negative. Chest x-ray shows bilateral scattered infiltrates, left lower lobe atelectasis. Progress note dated 02/03/2021. 65-year-old female again seen in the intensive care unit. She is in room 263. The patient remains on mechanical ventilator. Her ventilator settings include a volume assist control mode, rate of 14, tidal volume 350, FiO2 40%, to be dropped to 30%, and PEEP of 5. Blood gases show pO2 129, pCO2 43, the pH is 7.42. She's currently on propofol at 25 mcg/kg/m, saline at 10 mL an hour, and vital high protein at 39 mL an hour which is goal. Yesterday, she had a daily interruption of sedation, which only lasted 20 minutes. She was nonresponsive. Vital signs became unstable and she was placed back on sedation. White count 9.6, hemoglobin 8.6, hematocrit 27.9, platelet count 323,000. Sodium 134, potassium 4.2, chlorides 98, CO2 25, anion gap 11, BUN 31, and creatinine 3.46. Chest x-ray shows bibasilar opacities. Progress note dated 02/04/2021. 65-year-old female, again seen in the intensive care unit, room 263. She remains on the mechanical ventilator, in the volume assist control mode. Her tidal volume is 350, her rate is 14, FiO2 30%, and PEEP of 5. Blood gases show a PaO2 of 97, PaCO2 41, and a pH of 7.42. The propofol has been off for at least a day now, she remains on Cleveprex at 2 mg an hour, saline at KVO, and vital high protein at goal, which is 39 mL an hour. We are going to put in for a tracheostomy and PEG tube placement by the surgeon. Apparently the patient's family wants everything to be done at this point. Her neurologic status is poor, and not thought to be able to recover according to neurology. White count 10.5, hemoglobin 9, hematocrit 28.5, and platelet count 363,000. Sodium 137, potassium 3.7, chlorides 99, CO2 25, anion gap 13, BUN 50, creatinine 4.34. Chest x-ray shows left basilar opacity, and small effusions bilaterally. There may be some vascular congestion as well. Progress note dated 02/05/2021. 65-year-old female, again is seen in the intensive care unit, room 263. The patient remains on mechanical ventilator. She is on the volume assist control mode, rate 14, tidal volume 350, FiO2 30%, PEEP of 5. Blood gases show pO2 of 97, pCO2 38, pH is 7.43. She's getting saline at 10 mL an hour, Cleveprex 4 mg an hour, tube feeds with Nepro at 34 mL an hour, which is goal. We've asked surgery to see her for tracheostomy and PEG tube placement. Labs today include a blood gas, a d-dimer 5.59, and a C-reactive protein at 39. Chest x-ray show some bibasilar infiltrates or atelectasis. Objective - Vital Signs Vital signs: Vital Signs Temp 99.0 F 02/05/21 04:00 Pulse 72 02/05/21 11:00 Resp 21 02/05/21 11:00 BP 147/67 02/05/21 00:00 Pulse Ox 97 02/05/21 11:00 Intake & Output 02/04/21 02/05/21 02/05/21 18:59 06:59 18:59 Intake Total 418.833 848.467 365 Output Total 0 Balance 418.833 848.467 365 Weight 103.6 kg Intake: IV 355 323 165 0.9 @ 10ml/hr 155 90 50 Piperacillin-Tazobactam 3 100 100 .375 gm In Sodium Chloride 0.9% 100 ml @ 25 mls/hr IVPB Q12HR [facility] Rx #:[id number] levETIRAcetam IV 500 mg 100 100 100 In Sodium Chloride 0.9% 100 ml @ 400 mls/hr IVPB Q12HR [facility] Rx#:[id number] pressure bag 33 15 Intake, IV Titration 24.833 57.467 Amount Clevidipine Butyrate 25 24.833 57.467 mg In Empty Bag 1 bag @ 1 MG/HR 2 mls/hr IV .Q24H [facility] Rx#:[id number] Tube Feeding 39 408 170 Other 60 30 Output: Urine 0 Other: # Voids 0 # Bowel Movements 1 1 ABP, PAP, CO, CI - Last Documented Arterial Blood Pressure 156/56 - Exam Currently intubated, and mechanically ventilated. HEENT examination is grossly unremarkable. Neck supple. Full range of motion. No adenopathy thyromegaly or neck vein dis tention. Cardiovascular examination reveals regular rhythm rate. S1-S2 normal. No S3 or S4. No discernible murmur noted. Heart rate 72 bpm. Heart sounds are distant. Lungs reveal diffuse bilateral rhonchi and crackles. There are no wheezes. Breath sounds are equal bilaterally. Abdomen soft bowel sounds are heard. No masses or tenderness. Extremities are intact. No cyanosis or clubbing. There is bilateral lower extremity edema. Skin is without rash or lesion. Neurologic examination is unchanged. Off of sedation, she opens her eyes, but there is no purposeful movements. - Labs CBC & Chem 7: 02/04/21 04:30 02/04/21 04:30 Labs: Abnormal Lab Results - Last 24 Hours (Table) 02/04/21 02/05/21 02/05/21 Range/Units 17:14 00:06 05:20 Fibrinogen 653 H (200-500) mg/dL D-Dimer 5.59 H (<0.60) mg/L FEU ABG Total CO2 (19-24) mmol/L ABG O2 Saturation (94-97) % POC Glucose (mg/dL) 213 H 258 H (75-99) mg/dL C-Reactive Protein (<10.0) mg/L 02/05/21 02/05/21 02/05/21 Range/Units 05:20 05:41 06:04 Fibrinogen (200-500) mg/dL D-Dimer (<0.60) mg/L FEU ABG Total CO2 27 H (19-24) mmol/L ABG O2 Saturation 97.5 H (94-97) % POC Glucose (mg/dL) 383 H (75-99) mg/dL C-Reactive Protein 39.0 H (<10.0) mg/L 02/05/21 Range/Units 11:27 Fibrinogen (200-500) mg/dL D-Dimer (<0.60) mg/L FEU ABG Total CO2 (19-24) mmol/L ABG O2 Saturation (94-97) % POC Glucose (mg/dL) 355 H (75-99) mg/dL C-Reactive Protein (<10.0) mg/L Assessment and Plan Assessment: Cardiac arrest most likely secondary to cardiac arrhythmia initial rhythm was ventricular fibrillation upon EMS arrival. Acute hypoxic respiratory failure secondary to above, with probable significant anoxic brain injury. Bilateral interstitial edema most likely secondary to end-stage renal disease and suspect acute systolic congestive heart failure, likely ischemic in nature. Cardiac workup is pending. Strongly suspect anoxic brain injury and metabolic encephalopathy secondary to cardiac arrest. Type 2 diabetes. Benign essential hypertension. end stage renal disease on hemodialysis. History of carotid artery disease. History of DVT been maintained on all across. History of diabetic peripheral neuropathy. History of cardiac arrhythmia requiring cardiac ablation. Chronic lymphedema and cellulitis of both lower extremities. History of irritable bowel syndrome. History of covid 19 infection in October of 2020 Possible right paratracheal hematoma from attempted central line placement, CT of the chest was ordered. Plan: Plan dated 02/02/2021. The patient will have a daily eruption of sedation today. We will hopefully attempt a spontaneous breathing trial. Currently, the patient is oxygenating well. She is receiving enteral nutrition. Chest x-ray, labs, and medications are all reviewed. Additional recommendations suggestions are forthcoming. Prognosis is guarded. The patient does have 3 day a week hemodialysis. Plan dated 02/03/2021. Today, we will again have a daily interruption of sedation. The patient's cu rrently on propofol at 25 mcg/kg/m. The FiO2 be dropped from 40% down to 30%. PaO2 on the blood gases today was 129. The patient's overall prognosis is poor. She is poorly responsive off sedation. She does have hemodialysis 3 days a week. The primary hospitalist services talking to the family about CODE STATUS. Additional recommendations and suggestions are coming. Prognosis is poor. Labs, medications, and x-rays are all reviewed. Plan dated 02/04/2021. The primary hospitalist service to talk to the family about CODE STATUS. Apparently, they are insistent on keeping the patient on the life support machine at this time. We will go ahead and ask surgery to consider doing a tracheostomy and PEG tube placement. Her neurologic status is poor, and I looked at the from the neurologist, who suggested her likelihood of significant recovery is very small. Nonetheless, the patient is maintained on Cleveprex for blood pressure control. Gas exchange is reasonable. We will continue to follow. Prognosis is very poor. No additional recommendations are made. Plan dated 02/05/2021. The primary service did talk to the family about CODE STATUS. Today, are insistent on full code for this patient. Therefore, we will go ahead and ask surgery to see the patient for tracheostomy, and PEG tube placement. Her neurologic status is poor as documented by neurology services. She remains on current medications. She remains on Cleveprex for blood pressure control. She is getting tube feeds at goal. We will continue to follow make recommendations were appropriate. Overall prognosis remains very poor. Time with Patient: Greater than 30
[2021-02-05 12:22] LABS: Ferritin 1761.6 ng/mL (10.0-291.0)
[2021-02-05 12:40] LABS: Anisocytosis Slight; Basophils % (A) 0 %; Eosinophils % (A) 0 %; HCT 29.2 % (34.0-46.0); Hypochromasia Moderate; Lymphocytes # (A) 1.1 k/uL (1.0-4.8); Lymphocytes % (A) 12 %; MCHC 30.9 g/dL (31.0-37.0); MCV 97.3 fL (80.0-100.0); Macrocytosis Slight; Mean Platelet Volume 8.3; Monocytes # (A) 0.7 k/uL (0-1.0); Monocytes % (A) 7 %; Neutrophils # (A) 7.6 k/uL (1.3-7.7); Neutrophils % (A) 79 %; Platelet Count 372 k/uL (150-450); RDW 17.4 % (11.5-15.5); WBC 9.6 k/uL (3.8-10.6)
[2021-02-05 12:52] LABS: Calcium 8.9 mg/dL (8.4-10.2); Magnesium 2.6 mg/dL (1.6-2.3); Phosphorus 5.9 mg/dL (2.5-4.5); Potassium 3.9 mmol/L (3.5-5.1); Total Bilirubin 0.5 mg/dL (0.2-1.3); Total Protein 6.2 g/dL (6.3-8.2)
--- NOTE | 2021-02-05 13:45 | P.PN ---
Subjective Patient is a pleasant 65-year-old the female was discharged from my service yesterday after she was treated for encephalopathy related to hypoglycemia. Patient had a cardiorespiratory arrest was pretty functional ambulate and go shopping at the time when she had a cardiorespiratory arrest, CPR was started and patient was later found to have went to her tachycardia, patient returned to sinus rhythm and 25 minutes subsequently was intubated and brought to emergency department. Patient did have history of ventricular tachycardia in the past pa tient was started on amiodarone at that time. Patient does have medical multiple medical problems including end-stage renal disease dialysis dependent chest x-ray showing significant infiltrate in the right lung mostly appears to be volume overload patient does have low-grade fever which can be secondary to cardiorespiratory arrest but patient was empirically started on Zosyn and patient is being admitted to ICU patient is presently intubated with FiO2 of 100% PEEP of 5 patient is breathing over the ventilator patient is on assist- control/volume controlled ventilation, on propofol patient does have conjunctival and corneal reflexes, does have gag reflex. No significant electrolyte abnormalities were appreciated. 01/29/2021 Patient is on ventilator support patient the doesn't have any significant response in after discontinue additional of sedation for about 4 hours. Patient was evaluated by multiple consultants including neurology patient had an EEG to assess for the brain function because of significant anoxic brain injury, patient has significant background slowing slowing encephalopathy. Patient still has brainstem reflexes that were described above. Patient had an echo Wh ich showed normal ejection fraction and grade 1 diastolic dysfunction. 01/30/2021 Patient was started back on propofol as patient is not tolerating ventilator patient remains on ventilatory support . Patient will undergo he hemodialysis tomorrow. Patient is on cisatracurium as well. Patient is undergoing repeat EEG to assess the brain function patient still has ranged stem reflexes at this time. 01/31/2021 Patient remains in intensity and neck done ventilatory support. Patient had a repeat EEG which she appeared to be bit better. Patient does have corneal reflex but doesn't have any conjunctival reflux, patient does have cough reflex biting on the ventilator. Patient remains on the propofol drip and patient neurological assessment it to be done off sedation although patient doesn't appear to be tolerating off sedation. Patient had dialysis today. 02/01/2021 Patient's sedation is being turned off at this time patient will be evaluated or sedation by neurology. Patient has sluggish are absent pupillary reflexes patient is still barely breathing over the ventilator at this time. Chest x-ray showing left lower lobe infiltrate today patient is on the NG tube feedings patient can use to be on Keppra prophylactically there is focal slowing on the EEG without any epileptiform discharges 02/02/2021 Patient is on sedation no symptom response patient has a corneal reflex but no conjunctival reflux patient does have some gag reflex as well although not responding. Patient was evaluated by neurology patient apparently had significant edema on the CT of the head that was done on january. Aspirin neurology chance of reasonable recovery is low and discussed with neurology and probably call family to discuss overall goals of care including comfort care terminal wean. 02/03/2021 Patient doesn't have any significant improvement in spite of hours of for holding off sedation. Doesn't appear to have significant improvement. Patient clinical condition and overall neurological status is bit worse. Discussed with the patient's family wants to continue the care at this time. 02/04/2021 Patient is off sedation for more than 30 hours without any significant improvem ent in her neurological status. Chest x-ray showing pulmonary edema patient will undergo hemodialysis today patient is unclear reflex her blood pressure. Patient is scheduled for tracheostomy and PEG tube placement on Sunday02/05/2021 patient overall neurological status and overall clinical condition remains the same patient is still not arousable at this time. Review of systems: Unable to obtain as patient is intubated All inpatient medications were reviewed and appropriate changes in these medications as dictated in the interval history and assessment and plan. Objective - Vital Signs Vital signs: Vital Signs Temp 99.9 F H 02/05/21 12:00 Pulse 76 02/05/21 13:00 Resp 22 02/05/21 13:00 BP 147/67 02/05/21 00:00 Pulse Ox 96 02/05/21 13:00 Intake & Output 02/04/21 02/05/21 02/05/21 18:59 06:59 18:59 Intake Total 418.833 848.467 489 Output Total 0 Balance 418.833 848.467 489 Weight 103.6 kg Intake: IV 355 323 191 0.9 @ 10ml/hr 155 90 70 Piperacillin-Tazobactam 3 100 100 .375 gm In Sodium Chloride 0.9% 100 ml @ 25 mls/hr IVPB Q12HR [facility] Rx #:[id number] levETIRAcetam IV 500 mg 100 100 100 In Sodium Chloride 0.9% 100 ml @ 400 mls/hr IVPB Q12HR EL[facility] Rx#:[id number] pressure bag 33 21 Intake, IV Titration 24.833 57.467 Amount Clevidipine Butyrate 25 24.833 57.467 mg In Empty Bag 1 bag @ 1 MG/HR 2 mls/hr IV .Q24H EL[facility] Rx#:[id number] Tube Feeding 39 408 238 Other 60 60 Output: Urine 0 Other: # Voids 0 # Bowel Movements 1 1 ABP, PAP, CO, CI - Last Documented Arterial Blood Pressure 160/57 - Exam PHYSICAL EXAMINATION: GENERAL: Patient is intubated sedated, does have an NG tube with some bloody drainage from the NG tube. Patient has a central line and arterial line HEENT: Pupils are round and and constricted at this time because of propofol. EOMI. No scleral icterus. No conjunctival pallor. Normocephalic, atraumatic. No pharyngeal erythema. No thyromegaly. CARDIOVASCULAR: S1 and S2 present. No murmurs, rubs, or gallops. PULMONARY: Chest is clear to auscultation, no wheezing or crackles. ABDOMEN: Soft, nontender, nondistended, normoactive bowel sounds. No palpable organomegaly. MUSCULOSKELETAL: No joint swelling or deformity. EXTREMITIES: No cyanosis, clubbing, bilateral pedal edema which is chronic NEUROLOGICAL: Intubated sedated but does have brainstem reflexes, patient doesn't have cough reflex is breathing over the ventilator, does have gag reflex. SKIN: Stage I and 2 ulcers which doesn't appear to be infected - Labs CBC & Chem 7: 02/05/21 12:26 02/05/21 12:26 Labs: Abnormal Lab Results - Last 24 Hours (Table) 02/04/21 02/05/21 02/05/21 Range/Units 17:14 00:06 05:20 RBC (3.80-5.40) m/uL Hgb (11.4-16.0) gm/dL Hct (34.0-46.0) % MCHC (31.0-37.0) g/dL RDW (11.5-15.5) % Fibrinogen 653 H (200-500) mg/dL D-Dimer 5.59 H (<0.60) mg/L FEU ABG Total CO2 (19-24) mmol/L ABG O2 Saturation (94-97) % Sodium (137-145) mmol/L Chloride (98-107) mmol/L BUN (7-17) mg/dL Creatinine (0.52-1.04) mg/dL Glucose (74-99) mg/dL POC Glucose (mg/dL) 213 H 258 H (75-99) mg/dL Phosphorus (2.5-4.5) mg/dL Magnesium (1.6-2.3) mg/dL Ferritin (10.0-291.0) ng/mL Alkaline Phosphatase (38-126) U/L C-Reactive Protein (<10.0) mg/L Total Protein (6.3-8.2) g/dL Albumin (3.5-5.0) g/dL 02/05/21 02/05/21 02/05/21 Range/Units 05:20 05:41 06:04 RBC (3.80-5.40) m/uL Hgb (11.4-16.0) gm/dL Hct (34.0-46.0) % MCHC (31.0-37.0) g/dL RDW (11.5-15.5) % Fibrinogen (200-500) mg/dL D-Dimer (<0.60) mg/L FEU ABG Total CO2 27 H (19-24) mmol/L ABG O2 Saturation 97.5 H (94-97) % Sodium (137-145) mmol/L Chloride (98-107) mmol/L BUN (7-17) mg/dL Creatinine (0.52-1.04) mg/dL Glucose (74-99) mg/dL POC Glucose (mg/dL) 383 H (75-99) mg/dL Phosphorus (2.5-4.5) mg/dL Magnesium (1.6-2.3) mg/dL Ferritin 1761.6 H (10.0-291.0) ng/mL Alkaline Phosphatase (38-126) U/L C-Reactive Protein 39.0 H (<10.0) mg/L Total Protein (6.3-8.2) g/dL Albumin (3.5-5.0) g/dL 02/05/21 02/05/21 02/05/21 Range/Units 11:27 11:52 12:26 RBC 3.00 L (3.80-5.40) m/uL Hgb 9.0 L (11.4-16.0) gm/dL Hct 29.2 L (34.0-46.0) % MCHC 30.9 L (31.0-37.0) g/dL RDW 17.4 H (11.5-15.5) % Fibrinogen (200-500) mg/dL D-Dimer (<0.60) mg/L FEU ABG Total CO2 (19-24) mmol/L ABG O2 Saturation (94-97) % Sodium (137-145) mmol/L Chloride (98-107) mmol/L BUN (7-17) mg/dL Creatinine (0.52-1.04) mg/dL Glucose (74-99) mg/dL POC Glucose (mg/dL) 355 H 378 H (75-99) mg/dL Phosphorus (2.5-4.5) mg/dL Magnesium (1.6-2.3) mg/dL Ferritin (10.0-291.0) ng/mL Alkaline Phosphatase (38-126) U/L C-Reactive Protein (<10.0) mg/L Total Protein (6.3-8.2) g/dL Albumin (3.5-5.0) g/dL 02/05/21 Range/Units 12:26 RBC (3.80-5.40) m/uL Hgb (11.4-16.0) gm/dL Hct (34.0-46.0) % MCHC (31.0-37.0) g/dL RDW (11.5-15.5) % Fibrinogen (200-500) mg/dL D-Dimer (<0.60) mg/L FEU ABG Total CO2 (19-24) mmol/L ABG O2 Saturation (94-97) % Sodium 132 L (137-145) mmol/L Chloride 96 L (98-107) mmol/L BUN 56 H (7-17) mg/dL Creatinine 4.09 H (0.52-1.04) mg/dL Glucose 367 H (74-99) mg/dL POC Glucose (mg/dL) (75-99) mg/dL Phosphorus 5.9 H (2.5-4.5) mg/dL Magnesium 2.6 H (1.6-2.3) mg/dL Ferritin (10.0-291.0) ng/mL Alkaline Phosphatase 174 H (38-126) U/L C-Reactive Protein (<10.0) mg/L Total Protein 6.2 L (6.3-8.2) g/dL Albumin 3.0 L (3.5-5.0) g/dL Assessment and Plan Plan: -Cardiorespiratory arrest leading to respiratory failure: Secondary to ventricular tachycardia patient was evaluated by cardiology echocardiogram as mentioned above . Repeat EEG showed some improvement in background slowing. Patient is on and off sedation no significant improvement in mental status or sedation. Patient has significant anoxic brain injury over all prognosis is poor, possibility of reasonable neurological recovery is low same thing was discussed with the family today. For now family wants to continue the care. Patient will undergo tracheostomy and PEG tube placement on Sunday -Acute hypoxic respiratory failure leading to anoxic brain injury. -Volume overload: Secondary to end-stage renal disease nephrology evaluated the patient. Patient is undergoing hemodialysis as scheduled -Fever: Most probably secondary to cardiorespiratory arrest blood cultures so far are negative except for sputum cultures showing gram-positive bacilli and cocci which is usually oral cavity bacteria -Recent covid 19 infection and month of October, patient had a repeat Covid 19 test that was positive again this is probably not a new infection but residual inactive RNA fragments. -End-stage renal disease, dialysis dependent -Type 2 diabetes mellitus patient is on sliding scale will hold off on long- acting insulin history of DVT for which patient is on Eliquis -Hypertension -Diabetic peripheral neuropathy -bilateral lower extremity ulcers doesn't appear to have cellulitis but does have chronic lymphedema Patient prognosis is extremely poor.
[2021-02-05 17:14] LABS: Glucose,Whole Blood 242 mg/dL (75-99)
--- NOTE | 2021-02-05 18:38 | EEG ---
ELECTROENCEPHALOGRAM REPORT HISTORY: This is a bedside EEG being performed to assess cognitive status. FINDINGS: This is a 20 channel EEG setup using the international 10/20 placement system. There are bipolar and referential montages. At the onset of the recording there is noted to be a diffuse generalization slowing ranging in the delta frequencies at 1 to 3 Hertz. Photic stimulation is performed and does not produce a driving response. The background rhythm remains the same throughout the recording, there is no change. There is no evidence of stimulation of the patient. There is no eye opening. IMPRESSION: This is an abnormal EEG with diffuse slowing consistent with severe cerebral dysfunction of a toxic metabolic or anoxic etiology. Clinical correlation is advised. MMODL / IJN: [id number] /
[2021-02-05] MEDS: amLODIPine 10 MG TAB PO SCH (20:51)
[2021-02-05 23:54] LABS: Glucose,Whole Blood 205 mg/dL (75-99)
[2021-02-06] MEDS: INSULIN ASPART (NovoLOG) 100 UNIT/ML VIAL SQ SCH ×4 (00:14→17:30)
[2021-02-06] MEDS: CLEVIDIPINE BUTYRATE 25 MG in EMPTY BAG 1 BAG IV SCH ×3 (01:02→13:03)
[2021-02-06 05:21] LABS: Anisocytosis Slight; Basophils % (A) 0 %; Eosinophils # (A) 0.1 k/uL (0-0.7); Eosinophils % (A) 1 %; HCT 29.1 % (34.0-46.0); HGB 9.5 gm/dL (11.4-16.0); Hypochromasia Slight; Lymphocytes # (A) 1.7 k/uL (1.0-4.8); Lymphocytes % (A) 13 %; MCH 31.1 pg (25.0-35.0); MCHC 32.7 g/dL (31.0-37.0); MCV 94.9 fL (80.0-100.0); Mean Platelet Volume 7.8; Monocytes % (A) 7 %; Neutrophils # (A) 10.2 k/uL (1.3-7.7); Neutrophils % (A) 78 %; Platelet Count 383 k/uL (150-450); RBC 3.06 m/uL (3.80-5.40); RDW 17.1 % (11.5-15.5); WBC 13.1 k/uL (3.8-10.6)
[2021-02-06 05:48] LABS: D-Dimer 5.19 mg/L FEU (<0.60)
[2021-02-06 05:52] LABS: ABG Base Excess 0.6 mmol/L; ABG HCO3 25 mmol/L (21-25); ABG Oxygen Saturation 97.9 % (94-97); ABG PCO2 36 mmHg (35-45); ABG PH 7.45 (7.35-7.45); ABG PO2 97 mmHg (83-108); ABG TCO2 26 mmol/L (19-24); Allen Test Performed? Yes
[2021-02-06 06:08] LABS: Glucose,Whole Blood 281 mg/dL (75-99)
[2021-02-06 06:23] LABS: C Reactive Protein 29.2 mg/L (<10.0); Calcium 8.8 mg/dL (8.4-10.2); Potassium 3.9 mmol/L (3.5-5.1); Total Bilirubin 0.4 mg/dL (0.2-1.3); Total Protein 6.2 g/dL (6.3-8.2)
[2021-02-06] MEDS: ALBUTEROL HFA INHALER INHALATION PRN ×4 (07:56→19:04)
[2021-02-06] MEDS: CALCIUM ACETATE 667 MG TAB PO SCH ×2 (08:45→17:30)
[2021-02-06] MEDS: ASPIRIN 81 MG PO SCH ×2 (08:46→08:54)
[2021-02-06] MEDS: DEXAMETHASONE SOD PHOSPHATE 10 MG/ML 1 ML VIAL IV SCH ×2 (08:46→08:53)
[2021-02-06] MEDS: CHLORHEXIDINE GLUCONATE 15 ML CUP MUCOUS MEM SCH ×2 (08:46→22:10)
[2021-02-06] MEDS: PANTOPRAZOLE 40 MG/10 ML VIAL IVP SCH ×2 (08:46→22:10)
[2021-02-06] MEDS: ZINC SULFATE 220 MG CAP PO SCH ×2 (08:54→22:32)
[2021-02-06] MEDS: levETIRAcetam IV 500 MG in SODIUM CHLORIDE 0.9% 100 ML IVPB SCH ×2 (09:03→22:32)
[2021-02-06] MEDS: hydrALAZINE HCL 50 MG TAB PO SCH ×3 (09:23→22:36)
[2021-02-06 09:39] LABS: Ferritin 1594.4 ng/mL (10.0-291.0)
--- NOTE | 2021-02-06 09:46 | P.PN ---
Subjective Patient is seen in follow-up for end-stage renal disease. She is maintained on hemodialysis on Sunday schedule. Intubated. On 30% FiO2. Plan for tracheostomy and PEG tube placement tomorrow. Vital signs are stable. No gross edema noted. Intubated. Exam discussed in detail with the nurse. Objective - Vital Signs Vital signs: Vital Signs Temp 98.7 F 02/06/21 04:00 Pulse 73 02/06/21 05:00 Resp 24 02/06/21 05:00 BP 147/67 02/06/21 01:00 Pulse Ox 97 02/06/21 05:00 Intake & Output 02/05/21 02/06/21 02/06/21 18:59 06:59 18:59 Intake Total 804 797 47 Balance 804 797 47 Intake: IV 256 251 13 0.9 @ 10ml/hr 120 115 10 levETIRAcetam IV 500 mg 100 100 In Sodium Chloride 0.9% 100 ml @ 400 mls/hr IVPB Q12HR [facility] Rx#:[id number] pressure bag 36 36 3 Intake, IV Titration 50 34 Amount Clevidipine Butyrate 25 50 34 mg In Empty Bag 1 bag @ 1 MG/HR 2 mls/hr IV .Q24H [facility] Rx#:[id number] Tube Feeding 408 442 34 Other 90 70 Other: # Voids 0 0 ABP, PAP, CO, CI - Last Documented Arterial Blood Pressure 165/56 - Labs CBC & Chem 7: 02/06/21 04:55 02/06/21 04:55 Labs: Abnormal Lab Results - Last 24 Hours (Table) 02/05/21 02/05/21 02/05/21 Range/Units 05:20 11:27 11:52 WBC (3.8-10.6) k/uL RBC (3.80-5.40) m/uL Hgb (11.4-16.0) gm/dL Hct (34.0-46.0) % MCHC (31.0-37.0) g/dL RDW (11.5-15.5) % Neutrophils # (1.3-7.7) k/uL Fibrinogen (200-500) mg/dL D-Dimer (<0.60) mg/L FEU ABG Total CO2 (19-24) mmol/L ABG O2 Saturation (94-97) % Sodium (137-145) mmol/L Chloride (98-107) mmol/L BUN (7-17) mg/dL Creatinine (0.52-1.04) mg/dL Glucose (74-99) mg/dL POC Glucose (mg/dL) 355 H 378 H (75-99) mg/dL Phosphorus (2.5-4.5) mg/dL Magnesium (1.6-2.3) mg/dL Ferritin 1761.6 H (10.0-291.0) ng/mL Alkaline Phosphatase (38-126) U/L C-Reactive Protein (<10.0) mg/L Total Protein (6.3-8.2) g/dL Albumin (3.5-5.0) g/dL 02/05/21 02/05/21 02/05/21 Range/Units 12:26 12:26 17:13 WBC (3.8-10.6) k/uL RBC 3.00 L (3.80-5.40) m/uL Hgb 9.0 L (11.4-16.0) gm/dL Hct 29.2 L (34.0-46.0) % MCHC 30.9 L (31.0-37.0) g/dL RDW 17.4 H (11.5-15.5) % Neutrophils # (1.3-7.7) k/uL Fibrinogen (200-500) mg/dL D-Dimer (<0.60) mg/L FEU ABG Total CO2 (19-24) mmol/L ABG O2 Saturation (94-97) % Sodium 132 L (137-145) mmol/L Chloride 96 L (98-107) mmol/L BUN 56 H (7-17) mg/dL Creatinine 4.09 H (0.52-1.04) mg/dL Glucose 367 H (74-99) mg/dL POC Glucose (mg/dL) 242 H (75-99) mg/dL Phosphorus 5.9 H (2.5-4.5) mg/dL Magnesium 2.6 H (1.6-2.3) mg/dL Ferritin (10.0-291.0) ng/mL Alkaline Phosphatase 174 H (38-126) U/L C-Reactive Protein (<10.0) mg/L Total Protein 6.2 L (6.3-8.2) g/dL Albumin 3.0 L (3.5-5.0) g/dL 02/05/21 02/06/21 02/06/21 Range/Units 23:52 04:55 04:55 WBC 13.1 H (3.8-10.6) k/uL RBC 3.06 L (3.80-5.40) m/uL Hgb 9.5 L (11.4-16.0) gm/dL Hct 29.1 L (34.0-46.0) % MCHC (31.0-37.0) g/dL RDW 17.1 H (11.5-15.5) % Neutrophils # 10.2 H (1.3-7.7) k/uL Fibrinogen 714 H (200-500) mg/dL D-Dimer 5.19 H (<0.60) mg/L FEU ABG Total CO2 (19-24) mmol/L ABG O2 Saturation (94-97) % Sodium (137-145) mmol/L Chloride (98-107) mmol/L BUN (7-17) mg/dL Creatinine (0.52-1.04) mg/dL Glucose (74-99) mg/dL POC Glucose (mg/dL) 205 H (75-99) mg/dL Phosphorus (2.5-4.5) mg/dL Magnesium (1.6-2.3) mg/dL Ferritin (10.0-291.0) ng/mL Alkaline Phosphatase (38-126) U/L C-Reactive Protein (<10.0) mg/L Total Protein (6.3-8.2) g/dL Albumin (3.5-5.0) g/dL 02/06/21 02/06/21 02/06/21 Range/Units 04:55 05:45 06:06 WBC (3.8-10.6) k/uL RBC (3.80-5.40) m/uL Hgb (11.4-16.0) gm/dL Hct (34.0-46.0) % MCHC (31.0-37.0) g/dL RDW (11.5-15.5) % Neutrophils # (1.3-7.7) k/uL Fibrinogen (200-500) mg/dL D-Dimer (<0.60) mg/L FEU ABG Total CO2 26 H (19-24) mmol/L ABG O2 Saturation 97.9 H (94-97) % Sodium 132 L (137-145) mmol/L Chloride 95 L (98-107) mmol/L BUN 67 H (7-17) mg/dL Creatinine 5.16 H (0.52-1.04) mg/dL Glucose 246 H (74-99) mg/dL POC Glucose (mg/dL) 281 H (75-99) mg/dL Phosphorus (2.5-4.5) mg/dL Magnesium (1.6-2.3) mg/dL Ferritin 1594.4 H (10.0-291.0) ng/mL Alkaline Phosphatase 171 H (38-126) U/L C-Reactive Protein 29.2 H (<10.0) mg/L Total Protein 6.2 L (6.3-8.2) g/dL Albumin 3.0 L (3.5-5.0) g/dL Assessment and Plan Plan: Assessment: 1. End-stage renal disease maintained on hemodialysis on Sunday schedule. 2. Status post cardiopulmonary arrest. 3. Anoxic brain injury. 4. Hypertension with chronic kidney disease. 5. Chronic kidney disease mineral bone disease maintained on PhosLo. 6. Diabetes mellitus. 7. COVID-19 positive. On steroids and zinc. Plan: Hemodialysis on Sunday. Tracheostomy and PEG tube placement tomorrow. Add hydralazine 50 mg 3 times daily.
--- NOTE | 2021-02-06 09:48 | P.PN ---
Subjective Progress Note Date: 02/06/21 Principal diagnosis: Respiratory failure Patient remains on the ventilator. White blood cell count 13.1, hemoglobin 9.5. Creatinine increased further. Objective - Vital Signs Vital signs: Vital Signs Temp 98.7 F 02/06/21 04:00 Pulse 73 02/06/21 05:00 Resp 24 02/06/21 05:00 BP 147/67 02/06/21 01:00 Pulse Ox 97 02/06/21 05:00 Intake & Output 02/05/21 02/06/21 02/06/21 18:59 06:59 18:59 Intake Total 804 797 47 Balance 804 797 47 Intake: IV 256 251 13 0.9 @ 10ml/hr 120 115 10 levETIRAcetam IV 500 mg 100 100 In Sodium Chloride 0.9% 100 ml @ 400 mls/hr IVPB Q12HR [facility] Rx#:[id number] pressure bag 36 36 3 Intake, IV Titration 50 34 Amount Clevidipine Butyrate 25 50 34 mg In Empty Bag 1 bag @ 1 MG/HR 2 mls/hr IV .Q24H EL[facility] Rx#:[id number] Tube Feeding 408 442 34 Other 90 70 Other: # Voids 0 0 ABP, PAP, CO, CI - Last Documented Arterial Blood Pressure 165/56 - Exam Abdomen: Soft, nontender, nondistended - Labs CBC & Chem 7: 02/06/21 04:55 02/06/21 04:55 Labs: Abnormal Lab Results - Last 24 Hours (Table) 02/05/21 02/05/21 02/05/21 Range/Units 05:20 11:27 11:52 WBC (3.8-10.6) k/uL RBC (3.80-5.40) m/uL Hgb (11.4-16.0) gm/dL Hct (34.0-46.0) % MCHC (31.0-37.0) g/dL RDW (11.5-15.5) % Neutrophils # (1.3-7.7) k/uL Fibrinogen (200-500) mg/dL D-Dimer (<0.60) mg/L FEU ABG Total CO2 (19-24) mmol/L ABG O2 Saturation (94-97) % Sodium (137-145) mmol/L Chloride (98-107) mmol/L BUN (7-17) mg/dL Creatinine (0.52-1.04) mg/dL Glucose (74-99) mg/dL POC Glucose (mg/dL) 355 H 378 H (75-99) mg/dL Phosphorus (2.5-4.5) mg/dL Magnesium (1.6-2.3) mg/dL Ferritin 1761.6 H (10.0-291.0) ng/mL Alkaline Phosphatase (38-126) U/L C-Reactive Protein (<10.0) mg/L Total Protein (6.3-8.2) g/dL Albumin (3.5-5.0) g/dL 02/05/21 02/05/21 02/05/21 Range/Units 12:26 12:26 17:13 WBC (3.8-10.6) k/uL RBC 3.00 L (3.80-5.40) m/uL Hgb 9.0 L (11.4-16.0) gm/dL Hct 29.2 L (34.0-46.0) % MCHC 30.9 L (31.0-37.0) g/dL RDW 17.4 H (11.5-15.5) % Neutrophils # (1.3-7.7) k/uL Fibrinogen (200-500) mg/dL D-Dimer (<0.60) mg/L FEU ABG Total CO2 (19-24) mmol/L ABG O2 Saturation (94-97) % Sodium 132 L (137-145) mmol/L Chloride 96 L (98-107) mmol/L BUN 56 H (7-17) mg/dL Creatinine 4.09 H (0.52-1.04) mg/dL Glucose 367 H (74-99) mg/dL POC Glucose (mg/dL) 242 H (75-99) mg/dL Phosphorus 5.9 H (2.5-4.5) mg/dL Magnesium 2.6 H (1.6-2.3) mg/dL Ferritin (10.0-291.0) ng/mL Alkaline Phosphatase 174 H (38-126) U/L C-Reactive Protein (<10.0) mg/L Total Protein 6.2 L (6.3-8.2) g/dL Albumin 3.0 L (3.5-5.0) g/dL 02/05/21 02/06/21 02/06/21 Range/Units 23:52 04:55 04:55 WBC 13.1 H (3.8-10.6) k/uL RBC 3.06 L (3.80-5.40) m/uL Hgb 9.5 L (11.4-16.0) gm/dL Hct 29.1 L (34.0-46.0) % MCHC (31.0-37.0) g/dL RDW 17.1 H (11.5-15.5) % Neutrophils # 10.2 H (1.3-7.7) k/uL Fibrinogen 714 H (200-500) mg/dL D-Dimer 5.19 H (<0.60) mg/L FEU ABG Total CO2 (19-24) mmol/L ABG O2 Saturation (94-97) % Sodium (137-145) mmol/L Chloride (98-107) mmol/L BUN (7-17) mg/dL Creatinine (0.52-1.04) mg/dL Glucose (74-99) mg/dL POC Glucose (mg/dL) 205 H (75-99) mg/dL Phosphorus (2.5-4.5) mg/dL Magnesium (1.6-2.3) mg/dL Ferritin (10.0-291.0) ng/mL Alkaline Phosphatase (38-126) U/L C-Reactive Protein (<10.0) mg/L Total Protein (6.3-8.2) g/dL Albumin (3.5-5.0) g/dL 02/06/21 02/06/21 02/06/21 Range/Units 04:55 05:45 06:06 WBC (3.8-10.6) k/uL RBC (3.80-5.40) m/uL Hgb (11.4-16.0) gm/dL Hct (34.0-46.0) % MCHC (31.0-37.0) g/dL RDW (11.5-15.5) % Neutrophils # (1.3-7.7) k/uL Fibrinogen (200-500) mg/dL D-Dimer (<0.60) mg/L FEU ABG Total CO2 26 H (19-24) mmol/L ABG O2 Saturation 97.9 H (94-97) % Sodium 132 L (137-145) mmol/L Chloride 95 L (98-107) mmol/L BUN 67 H (7-17) mg/dL Creatinine 5.16 H (0.52-1.04) mg/dL Glucose 246 H (74-99) mg/dL POC Glucose (mg/dL) 281 H (75-99) mg/dL Phosphorus (2.5-4.5) mg/dL Magnesium (1.6-2.3) mg/dL Ferritin 1594.4 H (10.0-291.0) ng/mL Alkaline Phosphatase 171 H (38-126) U/L C-Reactive Protein 29.2 H (<10.0) mg/L Total Protein 6.2 L (6.3-8.2) g/dL Albumin 3.0 L (3.5-5.0) g/dL Assessment and Plan (1) Cardiac arrest Narrative/Plan: Will tube feeds after midnight. Family discussing with consultants regarding tracheostomy and PEG placement. She is tentatively scheduled for tomorrow. Current Visit: Yes Status: Acute Code(s): I46.9 - CARDIAC ARREST, CAUSE UNSPECIFIED SNOMED Code(s): 282654458
--- NOTE | 2021-02-06 10:36 | XR ---
EXAMINATION TYPE: XR chest 1V DATE OF EXAM: 02/06/2021 COMPARISON: 02/05/2021 INDICATION: Short of breath TECHNIQUE: Single frontal view of the chest is obtained. FINDINGS: The heart size is borderline in size. The pulmonary vasculature is upper limits of normal. Mild subsegmental infiltrate may be present. No focal infiltrate is in the left lower lobe. There is silhouetting of the diaphragm. The endotracheal tube tip is above the ady. This is been adjusted from prior study. Nasogastric tu be transverses the thorax with tip in the left upper quadrant of the abdomen. IMPRESSION: 1. Mild infiltrate most focal in the left lower lobe. Finding is stable from comparison. 2. Lines and catheters discussed above.
[2021-02-06 12:04] LABS: Glucose,Whole Blood 315 mg/dL (75-99)
[2021-02-06 12:04] LABS: Glucose,Whole Blood 318 mg/dL (75-99)
--- NOTE | 2021-02-06 13:03 | P.PN ---
Subjective Progress Note Date: 02/06/21 Principal diagnosis: Acute hypoxemic respiratory failure. This is a 65-year-old female with history of multiple medical problems, known to have end-stage renal disease, on hemodialysis, type 2 diabetes, coronary artery disease, cardiogenic in the form of ventricular tachycardia, patient had had hemodialysis yesterday, and she went home felt nauseated, while at home the patient had a sudden cardiac arrest at 1310. Family initiated CPR according to EMS, fire department arrived to the scene and found the patient to be unresponsive, in ventricular fibrillation. She was defibrillated, and CPR was continued. Patient received epinephrine, and after the second the defibrillat ion, there was return of spontaneous circulation. Down time was in the range of 20 minutes. Patient was brought into the emergency room, kept on mechanical ventilation, she was hemodynamically stable not requiring any pressors. Transferred to the ICU, and I was asked to see her on consultation. The major concern at this point is the fact that the patient had a prolonged downtime, and she most likely sustained anoxic brain injury. Hence a neurological consultation was initiated on this patient. I discontinued all her sedation and we will arrange for neurological consultation. Ventilator oreilly the patient is on assist control rate of 14, volume 350 FiO2 went down from 60% to 45%, ABG crow wed a pO2 of 130 pCO2 of 36 pH of 7.52. All this information was obtained from the chart, no family members available at bedside Patient was reevaluated today on 01/30/2021, remains in the ICU, intubated and mechanically ventilated. Her ventilator settings are assist control rate of 14 tidal volume of 350 FiO2 is 50% PEEP of 5. Patient remains on propofol at 30 mcg/kg/m, remains on antibiotics for her cellulitis she is on Zosyn. Patient is only withdrawing to painful stimuli, but no purposeful movement. She was seen by neurology on consultation, and neurology feels that the patient has anoxic brain injury from prolonged cardiac arrest along with metabolic encephalopathy. In addition to all of this she has underlying covid 19 pneumonia. In addition to this, the patient has history of end-stage renal disease on hemodialysis, she also had history of DVT maintained on all across, and history of peripheral neuropathy. Labs today showed a pO2 of 123 pCO2 of 42 pH of 7.47 her WBC count is 11.9 hemoglobin is 8.6. BUN is 27 creatinine is 4.63. On 01/31/2002, patient's follow-up in the intensive care unit, she remains intubated, sedated, currently on assist control with a rate of 14, tidal volumes 350, FiO2 of 50%, and PEEP of 5, this morning's blood gases show pO2 146, pCO2 44, and pH of 7.39 and subsequently FiO2 was dropped down to 40%, currently on 0.9 ns at 10 ML per hour, Diprivan is at 20 mics per kilo per minute, no other drips, nutritional support in the form of vital high protein at 30, with a goal of 39. Patient is currently receiving hemodialysis treatment, patient is a chronic hemodialysis patient on the Sunday schedule. Patient apparently failed daily interruption of sedation, has not been following purposeful commands, she is only withdrawing to painful stimuli, there is no purposeful movement. Patient has been seen in consultation by neurology and followed by neurology and there is a possibility of anoxic brain injury from prolonged cardiac arrest along with metabolic encephalopathy. Patient tested positive for COVID 19 this admission. Chest x-ray today shows diffuse interstitial densities. Brain CT showed no acute intracranial process. EEG on 2020 showed background slowing suggestive of moderate encephalopathy, with no focal slowing, epileptiform discharge or seizures. Patient is receiving Keppra. Patient is on empiric antibiotics in the form of Zosyn. She is on Eliquis at 2.5 mg twice daily previous history of DVT, and possible paroxysmal A. fib. Cardiology is following in regards to V. fib arrest, there has been no further arrhythmias overnight On 02/01/2021 patient is seen in follow-up in the intensive care unit, patient remains sedated, intubated on assist control mode of ventilation with a rate of 14, tidal significant, FiO2 of 40% and PEEP of 5, his blood gases show pO2 of 85, pCO2 43 pH is 7.43. Today's chest x-ray shows stable left lower lobe infiltrate. FiO2 is 40%. No acute events overnight. Patient receiving initiation of support informal vital high protein at 39 with a goal of 39 ML per hour. EEG was done on 01/30/2021, showing abnormal routine EEG, with background slowing suggestive of moderate encephalopathy due to toxic metabolic disturbance. There was no focal slowing or epileptiform discharge or seizure. Patient continues on Keppra. Neurology is following. There has been no recurrence of arrhythmia, cartiology is following. Patient is on Eliquis for paroxysmal atrial fibrillation Progress note dated 02/02/2021. This is a 65-year-old female, again seen here in the intensive care unit. She currently is on propofol at 20 mcg/kg/m, and vital high protein at 39 mL an hour, which is goal. She remains on the mechanical ventilator, on the assist control mode, rate of 14, tidal volume 350, FiO2 40%, and PEEP of 5. Blood gases show a PaO2 of 77, PaCO2 43, and a pH is 7.4. We will do a daily interruption of sedation today. Current white count 8.2, hemoglobin 8.1, hematocrit 26.1, and platelet count 295,000. Her d-dimer is 4.12. Sodium 139, potassium 3.9, chlorides 103, CO2 26, anion gap 10, the 135, and creatinine 4.78. Microbiology is negative. Chest x-ray shows bilateral scattered infiltrates, left lower lobe atelectasis. Progress note dated 02/03/2021. 65-year-old female again seen in the intensive care unit. She is in room 263. The patient remains on mechanical ventilator. Her ventilator settings include a volume assist control mode, rate of 14, tidal volume 350, FiO2 40%, to be dropped to 30%, and PEEP of 5. Blood gases show pO2 129, pCO2 43, the pH is 7.42. She's currently on propofol at 25 mcg/kg/m, saline at 10 mL an hour, and vital high protein at 39 mL an hour which is goal. Yesterday, she had a daily interruption of sedation, which only lasted 20 minutes. She was nonresponsive. Vital signs became unstable and she was placed back on sedation. White count 9.6, hemoglobin 8.6, hematocrit 27.9, platelet count 323,000. Sodium 134, potassium 4.2, chlorides 98, CO2 25, anion gap 11, BUN 31, and creatinine 3.46. Chest x-ray shows bibasilar opacities. Progress note dated 02/04/2021. 65-year-old female, again seen in the intensive care unit, room 263. She remains on the mechanical ventilator, in the volume assist control mode. Her tidal volume is 350, her rate is 14, FiO2 30%, and PEEP of 5. Blood gases show a PaO2 of 97, PaCO2 41, and a pH of 7.42. The propofol has been off for at least a day now, she remains on Cleveprex at 2 mg an hour, saline at KVO, and vital high protein at goal, which is 39 mL an hour. We are going to put in for a tracheostomy and PEG tube placement by the surgeon. Apparently the patient's family wants everything to be done at this point. Her neurologic status is poor, and not thought to be able to recover according to neurology. White count 10.5, hemoglobin 9, hematocrit 28.5, and platelet count 363,000. Sodium 137, potassium 3.7, chlorides 99, CO2 25, anion gap 13, BUN 50, creatinine 4.34. Chest x-ray shows left basilar opacity, and small effusions bilaterally. There may be some vascular congestion as well. Progress note dated 02/05/2021. 65-year-old female, again is seen in the intensive care unit, room 263. The patient remains on mechanical ventilator. She is on the volume assist control mode, rate 14, tidal volume 350, FiO2 30%, PEEP of 5. Blood gases show pO2 of 97, pCO2 38, pH is 7.43. She's getting saline at 10 mL an hour, Cleveprex 4 mg an hour, tube feeds with Nepro at 34 mL an hour, which is goal. We've asked surgery to see her for tracheostomy and PEG tube placement. Labs today include a blood gas, a d-dimer 5.59, and a C-reactive protein at 39. Chest x-ray show some bibasilar infiltrates or atelectasis. Progress note dated 02/06/2021. 65-year-old female, again seen in the intensive care unit, room 263. The patient remains on the mechanical ventilator. Ventilator settings include the volume assist control mode, rate 14, tidal volume 350, FiO2 30%, PEEP of 5. Arterial blood gases show a PaO2 of 97, pCO2 36, and a pH is 7.45. The patient is on saline at 10 mL an hour, Cleveprex for blood pressure control at 4 mg an hour, and tube feeds with Nepro at 34 mL an hour which is goal. The patient continues with intermittent hemodialysis. The family is adamant that the patient be a full code. I put in for a surgeon to do a tracheostomy and PEG tube on this patient tomorrow. White count 13.1, hemoglobin 9.5, hematocrit 29.1, platelet count 383,000. D-dimer 5.19, sodium 132, potassium 3.9, chlorides 95, CO2 23, anion gap 14, BUN 67 and creatinine 5.16. C-reactive protein is 29.2. Chest x-ray continues to show infiltrates bilaterally, most focal and significant in the left lower lobe. Objective - Vital Signs Vital signs: Vital Signs Temp 98.7 F 02/06/21 04:00 Pulse 73 02/06/21 05:00 Resp 24 02/06/21 12:00 BP 147/67 02/06/21 01:00 Pulse Ox 97 02/06/21 08:00 Intake & Output 02/05/21 02/06/21 02/06/21 18:59 06:59 18:59 Intake Total 804 797 505.267 Output Total 0 Balance 804 797 505.267 Intake: IV 256 251 163 0.9 @ 10ml/hr 120 115 60 levETIRAcetam IV 500 mg 100 100 100 In Sodium Chloride 0.9% 100 ml @ 400 mls/hr IVPB Q12HR [facility] Rx#:[id number] pressure bag 36 36 3 Intake, IV Titration 50 34 44.267 Amount Clevidipine Butyrate 25 50 34 44.267 mg In Empty Bag 1 bag @ 1 MG/HR 2 mls/hr IV .Q24H [facility] Rx#:[id number] Tube Feeding 408 442 238 Other 90 70 60 Output: Urine 0 Other: Voiding Method Incontinent # Voids 0 0 0 ABP, PAP, CO, CI - Last Documented Arterial Blood Pressure 165/56 - Exam Currently intubated, and mechanically ventilated. Currently on no sedation. HEENT examination is grossly unremarkable. Neck supple. Full range of motion. No adenopathy thyromegaly or neck vein distention. Cardiovascular examination reveals regular rhythm rate. S1-S2 normal. No S3 or S4. No discernible murmur noted. Heart rate 83 bpm. Heart sounds are distant. Lungs reveal diffuse bilateral rhonchi and crackles. There are no wheezes. Breath sounds are equal bilaterally. Abdomen soft bowel sounds are heard. No masses or tenderness. Extremities are intact. No cyanosis or clubbing. There is bilateral lower extremity edema. Skin is without rash or lesion. Neurologic examination is unchanged. Off of sedation, she opens her eyes, but there is no purposeful movements. - Labs CBC & Chem 7: 02/06/21 04:55 02/06/21 04:55 Labs: Abnormal Lab Results - Last 24 Hours (Table) 02/05/21 02/05/21 02/06/21 Range/Units 17:13 23:52 04:55 WBC 13.1 H (3.8-10.6) k/uL RBC 3.06 L (3.80-5.40) m/uL Hgb 9.5 L (11.4-16.0) gm/dL Hct 29.1 L (34.0-46.0) % RDW 17.1 H (11.5-15.5) % Neutrophils # 10.2 H (1.3-7.7) k/uL Fibrinogen (200-500) mg/dL D-Dimer (<0.60) mg/L FEU ABG Total CO2 (19-24) mmol/L ABG O2 Saturation (94-97) % Sodium (137-145) mmol/L Chloride (98-107) mmol/L BUN (7-17) mg/dL Creatinine (0.52-1.04) mg/dL Glucose (74-99) mg/dL POC Glucose (mg/dL) 242 H 205 H (75-99) mg/dL Ferritin (10.0-291.0) ng/mL Alkaline Phosphatase (38-126) U/L C-Reactive Protein (<10.0) mg/L Total Protein (6.3-8.2) g/dL Albumin (3.5-5.0) g/dL 02/06/21 02/06/21 02/06/21 Range/Units 04:55 04:55 05:45 WBC (3.8-10.6) k/uL RBC (3.80-5.40) m/uL Hgb (11.4-16.0) gm/dL Hct (34.0-46.0) % RDW (11.5-15.5) % Neutrophils # (1.3-7.7) k/uL Fibrinogen 714 H (200-500) mg/dL D-Dimer 5.19 H (<0.60) mg/L FEU ABG Total CO2 26 H (19-24) mmol/L ABG O2 Saturation 97.9 H (94-97) % Sodium 132 L (137-145) mmol/L Chloride 95 L (98-107) mmol/L BUN 67 H (7-17) mg/dL Creatinine 5.16 H (0.52-1.04) mg/dL Glucose 246 H (74-99) mg/dL POC Glucose (mg/dL) (75-99) mg/dL Ferritin 1594.4 H (10.0-291.0) ng/mL Alkaline Phosphatase 171 H (38-126) U/L C-Reactive Protein 29.2 H (<10.0) mg/L Total Protein 6.2 L (6.3-8.2) g/dL Albumin 3.0 L (3.5-5.0) g/dL 02/06/21 02/06/21 02/06/21 Range/Units 06:06 12:01 12:02 WBC (3.8-10.6) k/uL RBC (3.80-5.40) m/uL Hgb (11.4-16.0) gm/dL Hct (34.0-46.0) % RDW (11.5-15.5) % Neutrophils # (1.3-7.7) k/uL Fibrinogen (200-500) mg/dL D-Dimer (<0.60) mg/L FEU ABG Total CO2 (19-24) mmol/L ABG O2 Saturation (94-97) % Sodium (137-145) mmol/L Chloride (98-107) mmol/L BUN (7-17) mg/dL Creatinine (0.52-1.04) mg/dL Glucose (74-99) mg/dL POC Glucose (mg/dL) 281 H 315 H 318 H (75-99) mg/dL Ferritin (10.0-291.0) ng/mL Alkaline Phosphatase (38-126) U/L C-Reactive Protein (<10.0) mg/L Total Protein (6.3-8.2) g/dL Albumin (3.5-5.0) g/dL Assessment and Plan Assessment: Cardiac arrest most likely secondary to cardiac arrhythmia initial rhythm was ventricular fibrillation upon EMS arrival. Acute hypoxic respiratory failure secondary to above, with probable significant anoxic brain injury. Bilateral interstitial edema most likely secondary to end-stage renal disease and suspect acute systolic congestive heart failure, likely ischemic in nature. Cardiac workup is pending. Strongly suspect anoxic brain injury and metabolic encephalopathy secondary to cardiac arrest. Type 2 diabetes. Benign essential hypertension. end stage renal disease on hemodialysis. History of carotid artery disease. History of DVT been maintained on all across. History of diabetic peripheral neuropathy. History of cardiac arrhythmia requiring cardiac ablation. Chronic lymphedema and cellulitis of both lower extremities. History of irritable bowel syndrome. History of covid 19 infection in October of 2020 Possible right paratracheal hematoma from attempted central line placement, CT of the chest was ordered. Plan: Plan dated 02/02/2021. The patient will have a daily eruption of sedation today. We will hopefully attempt a spontaneous breathing trial. Currently, the patient is oxygenating well. She is receiving enteral nutrition. Chest x-ray, labs, and medications are all reviewed. Additional recommendations suggestions are forthcoming. Prognosis is guarded. The patient does have 3 day a week hemodialysis. Plan dated 02/03/2021. Today, we will again have a daily interruption of sedation. The patient's currently on propofol at 25 mcg/kg/m. The FiO2 be dropped from 40% down to 30%. PaO2 on the blood gases today was 129. The patient's overall prognosis is poor. She is poorly responsive off sedation. She does have hemodialysis 3 days a week. The primary hospitalist services talking to the family about CODE STATUS. Additional recommendations and suggestions are coming. Prognosis is poor. Labs, medications, and x-rays are all reviewed. Plan dated 02/04/2021. The primary hospitalist service to talk to the family about CODE STATUS. Apparently, they are insistent on keeping the patient on the life support machine at this time. We will go ahead and ask surgery to consider doing a tracheostomy and PEG tube placement. Her neurologic status is poor, and I looked at the from the neurologist, who suggested her likelihood of significant recovery is very small. Nonetheless, the patient is maintained on Cleveprex for blood pressure control. Gas exchange is reasonable. We will continue to follow . Prognosis is very poor. No additional recommendations are made. Plan dated 02/05/2021. The primary service did talk to the family about CODE STATUS. Today, are insistent on full code for this patient. Therefore, we will go ahead and ask surgery to see the patient for tracheostomy, and PEG tube placement. Her neurologic status is poor as documented by neurology services. She remains on current medications. She remains on Cleveprex for blood pressure control. She is getting tube feeds at goal. We will continue to follow make recommendations were appropriate. Overall prognosis remains very poor. Plan dated 02/06/2021. The hospital service did talk to the family in detail about CODE STATUS, and they insist on the patient being a full code, and even agreed to tracheostomy, and PEG tube placement. A surgeon was consulted for that and hopefully that'll be done tomorrow. She is currently off all sedation, and her neurologic status has not improved. I appreciate input by neurology. The patient is being nourished at goal. The patient remains on Cleveprex for blood pressure control. Additional recommendations and suggestions are forthcoming. Prognosis is poor. Time with Patient: Greater than 30
--- NOTE | 2021-02-06 16:04 | P.PN ---
Subjective Patient is a pleasant 65-year-old the female was discharged from my service yesterday after she was treated for encephalopathy related to hypoglycemia. Patient had a cardiorespiratory arrest was pretty functional ambulate and go shopping at the time when she had a cardiorespiratory arrest, CPR was started and patient was later found to have went to her tachycardia, patient returned to sinus rhythm and 25 minutes subsequently was intubated and brought to emergency department. Patient did have history of ventricular tachycardia in the past pa tient was started on amiodarone at that time. Patient does have medical multiple medical problems including end-stage renal disease dialysis dependent chest x-ray showing significant infiltrate in the right lung mostly appears to be volume overload patient does have low-grade fever which can be secondary to cardiorespiratory arrest but patient was empirically started on Zosyn and patient is being admitted to ICU patient is presently intubated with FiO2 of 100% PEEP of 5 patient is breathing over the ventilator patient is on assist- control/volume controlled ventilation, on propofol patient does have conjunctival and corneal reflexes, does have gag reflex. No significant electrolyte abnormalities were appreciated. 01/29/2021 Patient is on ventilator support patient the doesn't have any significant response in after discontinue additional of sedation for about 4 hours. Patient was evaluated by multiple consultants including neurology patient had an EEG to assess for the brain function because of significant anoxic brain injury, patient has significant background slowing slowing encephalopathy. Patient still has brainstem reflexes that were described above. Patient had an echo Wh ich showed normal ejection fraction and grade 1 diastolic dysfunction. 01/30/2021 Patient was started back on propofol as patient is not tolerating ventilator patient remains on ventilatory support . Patient will undergo he hemodialysis tomorrow. Patient is on cisatracurium as well. Patient is undergoing repeat EEG to assess the brain function patient still has ranged stem reflexes at this time. 01/31/2021 Patient remains in intensity and neck done ventilatory support. Patient had a repeat EEG which she appeared to be bit better. Patient does have corneal reflex but doesn't have any conjunctival reflux, patient does have cough reflex biting on the ventilator. Patient remains on the propofol drip and patient neurological assessment it to be done off sedation although patient doesn't appear to be tolerating off sedation. Patient had dialysis today. 02/01/2021 Patient's sedation is being turned off at this time patient will be evaluated or sedation by neurology. Patient has sluggish are absent pupillary reflexes patient is still barely breathing over the ventilator at this time. Chest x-ray showing left lower lobe infiltrate today patient is on the NG tube feedings patient can use to be on Keppra prophylactically there is focal slowing on the EEG without any epileptiform discharges 02/02/2021 Patient is on sedation no symptom response patient has a corneal reflex but no conjunctival reflux patient does have some gag reflex as well although not responding. Patient was evaluated by neurology patient apparently had significant edema on the CT of the head that was done on january. Aspirin neurology chance of reasonable recovery is low and discussed with neurology and probably call family to discuss overall goals of care including comfort care terminal wean. 02/03/2021 Patient doesn't have any significant improvement in spite of hours of for holding off sedation. Doesn't appear to have significant improvement. Patient clinical condition and overall neurological status is bit worse. Discussed with the patient's family wants to continue the care at this time. 02/04/2021 Patient is off sedation for more than 30 hours without any significant improvem ent in her neurological status. Chest x-ray showing pulmonary edema patient will undergo hemodialysis today patient is unclear reflex her blood pressure. Patient is scheduled for tracheostomy and PEG tube placement on Sunday02/05/2021 patient overall neurological status and overall clinical condition remains the same patient is still not arousable at this time. 02/06/2021 patient is off sedation for about 2-3 days. Patient is presently on Tobrex remains intubated is undergoing hemodialysis as scheduled patient is on cleveprex for blood pressure. Review of systems: Unable to obtain as patient is intubated All inpatient medications were reviewed and appropriate changes in these medica tions as dictated in the interval history and assessment and plan. Objective - Vital Signs Vital signs: Vital Signs Temp 99.8 F H 02/06/21 12:00 Pulse 86 02/06/21 15:00 Resp 14 02/06/21 15:00 BP 147/67 02/06/21 15:00 Pulse Ox 95 02/06/21 15:00 Intake & Output 02/05/21 02/06/21 02/06/21 18:59 06:59 18:59 Intake Total 804 797 677.000 Output Total 0 Balance 804 797 677.000 Intake: IV 256 251 193 0.9 @ 10ml/hr 120 115 90 levETIRAcetam IV 500 mg 100 100 100 In Sodium Chloride 0.9% 100 ml @ 400 mls/hr IVPB Q12HR ELIF Rx#:[id number] pressure bag 36 36 3 Intake, IV Titration 50 34 50.000 Amount Clevidipine Butyrate 25 50 34 50.000 mg In Empty Bag 1 bag @ 1 MG/HR 2 mls/hr IV .Q24H ELIF Rx#:[id number] Tube Feeding 408 442 374 Other 90 70 60 Output: Urine 0 Other: Voiding Method Incontinent # Voids 0 0 0 ABP, PAP, CO, CI - Last Documented Arterial Blood Pressure 149/57 - Exam PHYSICAL EXAMINATION: GENERAL: Patient is intubated sedated, does have an NG tube with some bloody drainage from the NG tube. Patient has a central line and arterial line HEENT: Pupils are round and and constricted at this time because of propofol. EOMI. No scleral icterus. No conjunctival pallor. Normocephalic, atraumatic. No pharyngeal erythema. No thyromegaly. Patient opens her eyes doesn't have any purposeful movements CARDIOVASCULAR: S1 and S2 present. No murmurs, rubs, or gallops. PULMONARY: Chest is clear to auscultation, no wheezing or crackles. ABDOMEN: Soft, nontender, nondistended, normoactive bowel sounds. No palpable organomegaly. MUSCULOSKELETAL: No joint swelling or deformity. EXTREMITIES: No cyanosis, clubbing, bilateral pedal edema which is chronic NEUROLOGICAL: Intubated sedated but does have brainstem reflexes, patient doesn't have cough reflex is breathing over the ventilator, does have gag reflex. SKIN: Stage I and 2 ulcers which doesn't appear to be infected - Labs CBC & Chem 7: 02/06/21 04:55 02/06/21 04:55 Labs: Abnormal Lab Results - Last 24 Hours (Table) 02/05/21 02/05/21 02/06/21 Range/Units 17:13 23:52 04:55 WBC 13.1 H (3.8-10.6) k/uL RBC 3.06 L (3.80-5.40) m/uL Hgb 9.5 L (11.4-16.0) gm/dL Hct 29.1 L (34.0-46.0) % RDW 17.1 H (11.5-15.5) % Neutrophils # 10.2 H (1.3-7.7) k/uL Fibrinogen (200-500) mg/dL D-Dimer (<0.60) mg/L FEU ABG Total CO2 (19-24) mmol/L ABG O2 Saturation (94-97) % Sodium (137-145) mmol/L Chloride (98-107) mmol/L BUN (7-17) mg/dL Creatinine (0.52-1.04) mg/dL Glucose (74-99) mg/dL POC Glucose (mg/dL) 242 H 205 H (75-99) mg/dL Ferritin (10.0-291.0) ng/mL Alkaline Phosphatase (38-126) U/L C-Reactive Protein (<10.0) mg/L Total Protein (6.3-8.2) g/dL Albumin (3.5-5.0) g/dL 02/06/21 02/06/21 02/06/21 Range/Units 04:55 04:55 05:45 WBC (3.8-10.6) k/uL RBC (3.80-5.40) m/uL Hgb (11.4-16.0) gm/dL Hct (34.0-46.0) % RDW (11.5-15.5) % Neutrophils # (1.3-7.7) k/uL Fibrinogen 714 H (200-500) mg/dL D-Dimer 5.19 H (<0.60) mg/L FEU ABG Total CO2 26 H (19-24) mmol/L ABG O2 Saturation 97.9 H (94-97) % Sodium 132 L (137-145) mmol/L Chloride 95 L (98-107) mmol/L BUN 67 H (7-17) mg/dL Creatinine 5.16 H (0.52-1.04) mg/dL Glucose 246 H (74-99) mg/dL POC Glucose (mg/dL) (75-99) mg/dL Ferritin 1594.4 H (10.0-291.0) ng/mL Alkaline Phosphatase 171 H (38-126) U/L C-Reactive Protein 29.2 H (<10.0) mg/L Total Protein 6.2 L (6.3-8.2) g/dL Albumin 3.0 L (3.5-5.0) g/dL 02/06/21 02/06/21 02/06/21 Range/Units 06:06 12:01 12:02 WBC (3.8-10.6) k/uL RBC (3.80-5.40) m/uL Hgb (11.4-16.0) gm/dL Hct (34.0-46.0) % RDW (11.5-15.5) % Neutrophils # (1.3-7.7) k/uL Fibrinogen (200-500) mg/dL D-Dimer (<0.60) mg/L FEU ABG Total CO2 (19-24) mmol/L ABG O2 Saturation (94-97) % Sodium (137-145) mmol/L Chloride (98-107) mmol/L BUN (7-17) mg/dL Creatinine (0.52-1.04) mg/dL Glucose (74-99) mg/dL POC Glucose (mg/dL) 281 H 315 H 318 H (75-99) mg/dL Ferritin (10.0-291.0) ng/mL Alkaline Phosphatase (38-126) U/L C-Reactive Protein (<10.0) mg/L Total Protein (6.3-8.2) g/dL Albumin (3.5-5.0) g/dL Assessment and Plan Plan: -Cardiorespiratory arrest leading to respiratory failure: Secondary to ventricular tachycardia patient was evaluated by cardiology echocardiogram as mentioned above . Repeat EEG showed some improvement in background slowing. She and had a repeat EEG on 02/06/2021 which continues to show diffuse slowing significant anoxic brain injury. Patient is on and off sedation no significant improvement in mental status offsedation. Patient has significant anoxic brain injury over all prognosis is poor, possibility of reasonable neurological recovery is low same thing was discussed with the family . For now family wants to continue the care. Patient will undergo tracheostomy and PEG tube placement on Sunday -Acute hypoxic respiratory failure leading to anoxic brain injury. -Volume overload: Secondary to end-stage renal disease nephrology evaluated the patient. Patient is undergoing hemodialysis as scheduled -Fever: Most probably secondary to cardiorespiratory arrest blood cultures so far are negative except for sputum cultures showing gram-positive bacilli and cocci which is usually oral cavity bacteria, patient is presently not on any antibiotics at this time -Recent covid 19 infection and month of October, patient had a repeat Covid 19 test that was positive again this is probably not a new infection but residual inactive RNA fragments. -End-stage renal disease, dialysis dependent -Type 2 diabetes mellitus patient is on sliding scale will hold off on long- acting insulin history of DVT for which patient is was on Eliquis which is being held. Not sure why this is being held all check with the director data management and nursing staff -Hypertension -Diabetic peripheral neuropathy -bilateral lower extremity ulcers doesn't appear to have cellulitis but does have chronic lymphedema Patient prognosis is extremely poor.
[2021-02-06 17:13] LABS: Glucose,Whole Blood 336 mg/dL (75-99)
[2021-02-06] MEDS: amLODIPine 10 MG TAB PO SCH (22:32)
[2021-02-06 23:33] LABS: Glucose,Whole Blood 363 mg/dL (75-99)
[2021-02-07] MEDS: INSULIN ASPART (NovoLOG) 100 UNIT/ML VIAL SQ SCH ×5 (00:03→23:46)
[2021-02-07 05:22] LABS: Glucose,Whole Blood 415 mg/dL (75-99)
[2021-02-07 05:34] LABS: Anisocytosis Slight; Basophils % (A) 0 %; Eosinophils % (A) 0 %; HCT 29.6 % (34.0-46.0); HGB 9.7 gm/dL (11.4-16.0); Hypochromasia Slight; Lymphocytes # (A) 1.2 k/uL (1.0-4.8); Lymphocytes % (A) 8 %; MCHC 32.6 g/dL (31.0-37.0); MCV 95.1 fL (80.0-100.0); Mean Platelet Volume 8.4; Monocytes # (A) 0.7 k/uL (0-1.0); Monocytes % (A) 4 %; Neutrophils # (A) 13.4 k/uL (1.3-7.7); Neutrophils % (A) 87 %; Platelet Count 371 k/uL (150-450); RBC 3.11 m/uL (3.80-5.40); RDW 16.9 % (11.5-15.5); WBC 15.4 k/uL (3.8-10.6)
[2021-02-07] MEDS: CALCIUM ACETATE 667 MG TAB PO SCH ×2 (05:50→18:18)
[2021-02-07 05:52] LABS: Calcium 9.1 mg/dL (8.4-10.2); Potassium 4.4 mmol/L (3.5-5.1); Total Bilirubin 0.4 mg/dL (0.2-1.3); Total Protein 6.2 g/dL (6.3-8.2)
--- NOTE | 2021-02-07 06:20 | P.PN ---
Subjective Progress Note Date: 02/07/21 Acute hypoxemic respiratory failure. On 02/07/2021 on seeing the patient for a follow-up. The patient is post cardiac arrest and hypoxic encephalopathy. The patient remains intubated on a mechanical ventilator. The patient is currently off sedation and neurologic function of being monitored very closely. The patient has been off sedation since 02/03/2021. Currently on assist control mode at the rate of 14 with a tidal volume of 350 and FiO2 of 30% with a PEEP of 5. The patient's chest x-ray is showing infiltrates bilaterally more significant in the left lower lobe. Blood gases is pending for now. Dr Fernandez had a discussion was done with the family earlier prior to l and the plan was to proceed with tracheostomy tube insertion for long-term need of ventilatory support. The patient meanwhile is receiving enteral feeding for nutritional support and the patient is currently on Nepro 34 mL an hour per goal. The patient is requiring dialysis intermittently. That the patient has an incisional disease and she has been on dialysis on outpatient basis 3 times a week. The patient has nephrology is on the case. The Cleviprex was discontinued and the patient's blood pressure is being monitored. Noted the patient has multiple medical problems and comorbidit ies. The patient has end-stage renal disease. The patient undergoes hemodialysis. The patient also has coronary artery disease, diabetes mellitus type 2 and the patient's had V. tach and cardiac arrest. The family initiated a CPR according to the history as the patient was found to be unresponsive. The patient got defibrillated and CPR was continued by EMS. The downtime was estimated to be at least 20 minutes. The patient has been in intensive care unit since 01/30/2021. He is post V. fib arrest. He is also on Norvasc 10 mg a day for blood pressure control. He is on Keppra for any seizure activity, prophylaxis. The patient is on aspirin. The patient is off sedation. The patient is on Decadron 6 mg IV scheduled. Other comorbidities include diabetic peripheral neuropathy, chronic lower extremity ulcers and onset cellulitis and the patient has chronic lymphedema. I further can't understand the patient's family is interested in transferring her to another facility. Meanwhile, the patient's blood work today showed a white cell count 15.4 with a hemoglobin of 9.7 and the platelet count of 371. Creatinine is 86 with a creatinine of 6.1 and sodium level of 132. The chest x-ray from today is essentially clear. The patient's ET tube is in a good location. The patient has a G-tube in place. No significant pulmonary infiltration. The patient is tolerating her enteral feeding for nutritional support. Her last session of hemodialysis was on Sunday which is 3 days ago. No seizure activity has been noted. The patient remains on Decadron 6 mg IV every 24 hours. Objective - Vital Signs Vital signs: Vital Signs Temp 97.8 F 02/07/21 00:00 Pulse 75 02/07/21 05:00 Resp 0 L 02/07/21 05:00 BP 154/67 02/07/21 04:00 Pulse Ox 99 02/07/21 05:00 Intake & Output 02/06/21 02/06/21 02/07/21 06:59 18:59 06:59 Intake Total 797 839.000 798 Output Total 0 0 Balance 797 839.000 798 Intake: IV 251 223 200 0.9 @ 10ml/hr 115 120 100 levETIRAcetam IV 500 mg 100 100 100 In Sodium Chloride 0.9% 100 ml @ 400 mls/hr IVPB Q12HR [facility] Rx#:[id number] pressure bag 36 3 Intake, IV Titration 34 50.000 Amount Clevidipine Butyrate 25 34 50.000 mg In Empty Bag 1 bag @ 1 MG/HR 2 mls/hr IV .Q24H EL[facility] Rx#:[id number] Tube Feeding 442 476 408 Other 70 90 190 Output: Urine 0 0 Other: Voiding Method Incontinent # Voids 0 0 0 ABP, PAP, CO, CI - Last Documented Arterial Blood Pressure 167/61 - Exam Currently intubated, and mechanically ventilated. Currently on no sedation. HEENT examination is grossly unremarkable. Neck supple. Full range of motion. No adenopathy thyromegaly or neck vein distention. Cardiovascular examination reveals regular rhythm rate. S1-S2 normal. No S3 or S4. No discernible murmur noted. Heart rate 83 bpm. Heart sounds are distant. Lungs reveal diffuse bilateral rhonchi and crackles. There are no wheezes. Breath sounds are equal bilaterally. Abdomen soft bowel sounds are heard. No masses or tenderness. Extremities are intact. No cyanosis or clubbing. There is bilateral lower extremity edema. Skin is without rash or lesion. Neurologic examination is unchanged. Off of sedation, she opens her eyes, but there is no purposeful movements. Pupils are equal and symmetrical. The patient has a preferential gaze to the left. No nystagmus. No clonus. Does not withdraw to any painful stimulation. Reflexes are diminished in all 4 extremities. No facial asymmetry. - Labs CBC & Chem 7: 02/07/21 05:15 02/07/21 05:15 Labs: Abnormal Lab Results - Last 24 Hours (Table) 02/06/21 02/06/21 02/06/21 Range/Units 04:55 12:01 12:02 WBC (3.8-10.6) k/uL RBC (3.80-5.40) m/uL Hgb (11.4-16.0) gm/dL Hct (34.0-46.0) % RDW (11.5-15.5) % Neutrophils # (1.3-7.7) k/uL Sodium 132 L (137-145) mmol/L Chloride 95 L (98-107) mmol/L Carbon Dioxide (22-30) mmol/L BUN 67 H (7-17) mg/dL Creatinine 5.16 H (0.52-1.04) mg/dL Glucose 246 H (74-99) mg/dL POC Glucose (mg/dL) 315 H 318 H (75-99) mg/dL Ferritin 1594.4 H (10.0-291.0) ng/mL Alkaline Phosphatase 171 H (38-126) U/L C-Reactive Protein 29.2 H (<10.0) mg/L Total Protein 6.2 L (6.3-8.2) g/dL Albumin 3.0 L (3.5-5.0) g/dL 02/06/21 02/06/21 02/07/21 Range/Units 17:10 23:32 05:15 WBC 15.4 H (3.8-10.6) k/uL RBC 3.11 L (3.80-5.40) m/uL Hgb 9.7 L (11.4-16.0) gm/dL Hct 29.6 L (34.0-46.0) % RDW 16.9 H (11.5-15.5) % Neutrophils # 13.4 H (1.3-7.7) k/uL Sodium (137-145) mmol/L Chloride (98-107) mmol/L Carbon Dioxide (22-30) mmol/L BUN (7-17) mg/dL Creatinine (0.52-1.04) mg/dL Glucose (74-99) mg/dL POC Glucose (mg/dL) 336 H 363 H (75-99) mg/dL Ferritin (10.0-291.0) ng/mL Alkaline Phosphatase (38-126) U/L C-Reactive Protein (<10.0) mg/L Total Protein (6.3-8.2) g/dL Albumin (3.5-5.0) g/dL 02/07/21 02/07/21 Range/Units 05:15 05:20 WBC (3.8-10.6) k/uL RBC (3.80-5.40) m/uL Hgb (11.4-16.0) gm/dL Hct (34.0-46.0) % RDW (11.5-15.5) % Neutrophils # (1.3-7.7) k/uL Sodium 132 L (137-145) mmol/L Chloride 96 L (98-107) mmol/L Carbon Dioxide 20 L (22-30) mmol/L BUN 86 H (7-17) mg/dL Creatinine 6.19 H (0.52-1.04) mg/dL Glucose 376 H (74-99) mg/dL POC Glucose (mg/dL) 415 H (75-99) mg/dL Ferritin (10.0-291.0) ng/mL Alkaline Phosphatase 153 H (38-126) U/L C-Reactive Protein (<10.0) mg/L Total Protein 6.2 L (6.3-8.2) g/dL Albumin 3.0 L (3.5-5.0) g/dL Assessment and Plan Plan: 1 Cardiac arrest most likely secondary to cardiac arrhythmia initial rhythm was ventricular fibrillation upon EMS arrival. The patient came into the hospital on 01/30/2021 patient is in the intensive care unit since. The patient has obvious signs of anoxic encephalopathy. Estimated down time of the time of the cardiac arrest was around 20 minutes. 2 Acute hypoxic respiratory failure secondary to above, with probable significant anoxic brain injury. On my neurologic evaluation, the patient has spontaneous eye opening and the patient has a weak cough. She is not following any commands and she does not withdraw to any painful stimulation. 3 Bilateral interstitial edema most likely secondary to end-stage renal disease and suspect acute systolic congestive heart failure, likely ischemic in nature. 4 Anoxic brain injury and metabolic encephalopathy secondary to cardiac arrest. The patient is currently off sedation and the patient is not showing any significant neurologic recovery. 5 Type 2 diabetes. 6 Benign essential hypertension. 7 end stage renal disease on hemodialysis. 8 History of carotid artery disease. 9 History of DVT 10 History of diabetic peripheral neuropathy. 11 History of cardiac arrhythmia requiring cardiac ablation. 12 Chronic lymphedema and cellulitis of both lower extremities. 13 History of irritable bowel syndrome. 14 History of covid 19 infection in October of 2020 15 Possible right paratracheal hematoma from attempted central line placement, CT of the chest was ordered. Plan: Continue ventilator support, no active pulmonary issues Keep the patient off sedation and monitor the mental status neurologist on the case and the last EEG was done on 02/05/2021 and the results showed diffuse slowing consistent with cerebral dysfunction and anoxic encephalopathy. Proceed with insertion of a tracheostomy tube and a PEG tube Wean of clevidipine drip and the patient is currently off the drips and use oral antihypertensive medication for blood pressure control Neurologist on the case regarding anoxic encephalopathy Continue Keppra Started patient on Lantus 15 units along with NovoLog sliding scale coverage and monitor blood sugar control Family is interested chest pain this patient to another facility Overall prognosis extremely poor baseline above-mentioned comorbidities. We'll continue to follow. Is a critically care evaluation was done more than 30 minutes.
[2021-02-07 06:24] LABS: ABG HCO3 23 mmol/L (21-25); ABG Oxygen Saturation 98.8 % (94-97); ABG PCO2 35 mmHg (35-45); ABG PH 7.41 (7.35-7.45); ABG PO2 120 mmHg (83-108); ABG TCO2 24 mmol/L (19-24); Allen Test Performed? Yes
[2021-02-07] MEDS ORDERED: INSULIN DETEMIR (LEVEMIR) 100 UNIT/ML SYR SQ SCH (07:00)
[2021-02-07] MEDS: CHLORHEXIDINE GLUCONATE 15 ML CUP MUCOUS MEM SCH ×2 (09:06→20:41)
[2021-02-07] MEDS: PANTOPRAZOLE 40 MG/10 ML VIAL IVP SCH ×2 (09:06→20:41)
[2021-02-07] MEDS: hydrALAZINE HCL 50 MG TAB PO SCH ×3 (09:06→20:42)
[2021-02-07] MEDS: ZINC SULFATE 220 MG CAP PO SCH ×2 (09:07→20:42)
[2021-02-07] MEDS: ALBUTEROL HFA INHALER INHALATION PRN ×3 (09:31→15:59)
--- NOTE | 2021-02-07 09:42 | XR ---
EXAMINATION TYPE: XR chest 1V DATE OF EXAM: 02/07/2021 CLINICAL HISTORY: Difficulty breathing progress study. TECHNIQUE: Single AP portable upright view of the chest is obtained. COMPARISON: Chest x-ray from one day earlier FINDINGS: Stable endotracheal and orogastric tubes. Persistent cardiomegaly. Background chronic parenchymal changes with persistent left basilar opacity. Underlying scoliotic curvature. IMPRESSION: Cardiomegaly with patchy left basilar acute infiltrate and/or atelectasis. No significant change from one day earlier.
[2021-02-07] MEDS: levETIRAcetam IV 500 MG in SODIUM CHLORIDE 0.9% 100 ML IVPB SCH ×2 (10:34→20:41)
--- NOTE | 2021-02-07 10:34 | P.PN ---
Subjective Patient is seen in follow-up for end-stage renal disease. She is maintained on hemodialysis on Sunday schedule. Intubated. On 30% FiO2. Severe anoxic brain injury. Remains off sedation. Vital signs are stable. No gross edema noted. Intubated. Exam discussed in detail with the nurse. Objective - Vital Signs Vital signs: Vital Signs Temp 98.8 F 02/07/21 08:00 Pulse 75 02/07/21 09:30 Resp 18 02/07/21 09:30 BP 154/67 02/07/21 09:30 Pulse Ox 99 02/07/21 09:30 Intake & Output 02/06/21 02/07/21 02/07/21 18:59 06:59 18:59 Intake Total 839.000 842 240 Output Total 0 0 200 Balance 839.000 842 40 Intake: IV 223 210 40 0.9 @ 10ml/hr 120 110 40 levETIRAcetam IV 500 mg 100 100 In Sodium Chloride 0.9% 100 ml @ 400 mls/hr IVPB Q12HR EL[facility] Rx#:[id number] pressure bag 3 Intake, IV Titration 50.000 Amount Clevidipine Butyrate 25 50.000 mg In Empty Bag 1 bag @ 1 MG/HR 2 mls/hr IV .Q24H ELIF Rx#:[id number] Tube Feeding 476 442 170 Other 90 190 30 Output: Urine 0 0 Stool 200 Other: Voiding Method Incontinent Incontinent # Voids 0 0 ABP, PAP, CO, CI - Last Documented Arterial Blood Pressure 162/55 - Labs CBC & Chem 7: 02/07/21 05:15 02/07/21 05:15 Labs: Abnormal Lab Results - Last 24 Hours (Table) 02/06/21 02/06/21 02/06/21 Range/Units 12:01 12:02 17:10 WBC (3.8-10.6) k/uL RBC (3.80-5.40) m/uL Hgb (11.4-16.0) gm/dL Hct (34.0-46.0) % RDW (11.5-15.5) % Neutrophils # (1.3-7.7) k/uL ABG pO2 (83-108) mmHg ABG O2 Saturation (94-97) % Sodium (137-145) mmol/L Chloride (98-107) mmol/L Carbon Dioxide (22-30) mmol/L BUN (7-17) mg/dL Creatinine (0.52-1.04) mg/dL Glucose (74-99) mg/dL POC Glucose (mg/dL) 315 H 318 H 336 H (75-99) mg/dL Alkaline Phosphatase (38-126) U/L Total Protein (6.3-8.2) g/dL Albumin (3.5-5.0) g/dL 02/06/21 02/07/21 02/07/21 Range/Units 23:32 05:15 05:15 WBC 15.4 H (3.8-10.6) k/uL RBC 3.11 L (3.80-5.40) m/uL Hgb 9.7 L (11.4-16.0) gm/dL Hct 29.6 L (34.0-46.0) % RDW 16.9 H (11.5-15.5) % Neutrophils # 13.4 H (1.3-7.7) k/uL ABG pO2 (83-108) mmHg ABG O2 Saturation (94-97) % Sodium 132 L (137-145) mmol/L Chloride 96 L (98-107) mmol/L Carbon Dioxide 20 L (22-30) mmol/L BUN 86 H (7-17) mg/dL Creatinine 6.19 H (0.52-1.04) mg/dL Glucose 376 H (74-99) mg/dL POC Glucose (mg/dL) 363 H (75-99) mg/dL Alkaline Phosphatase 153 H (38-126) U/L Total Protein 6.2 L (6.3-8.2) g/dL Albumin 3.0 L (3.5-5.0) g/dL 02/07/21 02/07/21 Range/Units 05:20 06:20 WBC (3.8-10.6) k/uL RBC (3.80-5.40) m/uL Hgb (11.4-16.0) gm/dL Hct (34.0-46.0) % RDW (11.5-15.5) % Neutrophils # (1.3-7.7) k/uL ABG pO2 120 H (83-108) mmHg ABG O2 Saturation 98.8 H (94-97) % Sodium (137-145) mmol/L Chloride (98-107) mmol/L Carbon Dioxide (22-30) mmol/L BUN (7-17) mg/dL Creatinine (0.52-1.04) mg/dL Glucose (74-99) mg/dL POC Glucose (mg/dL) 415 H (75-99) mg/dL Alkaline Phosphatase (38-126) U/L Total Protein (6.3-8.2) g/dL Albumin (3.5-5.0) g/dL Assessment and Plan Plan: Assessment: 1. End-stage renal disease maintained on hemodialysis on Sunday schedule. 2. Status post cardiopulmonary arrest. 3. Anoxic brain injury. 4. Hypertension with chronic kidney disease. Dose of hydralazine increased. 5. Chronic kidney disease mineral bone disease maintained on PhosLo. 6. Diabetes mellitus. 7. COVID-19 positive. On steroids and zinc. Plan: Hemodialysis today. Overall prognosis guarded. Possible trach and PEG today.
[2021-02-07 11:54] LABS: Glucose,Whole Blood 375 mg/dL (75-99)
--- NOTE | 2021-02-07 12:23 | CT ---
EXAMINATION TYPE: CT brain wo con DATE OF EXAM: 02/07/2021 COMPARISON: 01/31/2021 HISTORY: 65-year-old female confusion, altered mental status TECHNIQUE: Examination was done in axial plane without intravenous contrast. Coronal and sagittal r econstructions performed. CT DLP: 1098.4 mGycm Automated exposure control for dose reduction was used. FINDINGS: There is no evidence of acute intracranial hemorrhage, acute ischemic changes, mass effect, or extra -axial fluid collection. Redemonstrated 1.3 cm calcified extra-axial lesion right frontal convexity. There is no effacement of cerebral sulci or basal subarachnoid cisterns. There is no hydrocephalus. There is no midline shift. Gagnon-white matter distinction is preserved. Slight increased attenuation in the region of the bilateral basal ganglia, new from 01/31/2021. Paranasal sinuses and mastoid air cells are well pneumatized. Orbits and globes are intact. IMPRESSION: 1. Symmetric increased attenuation within the bilateral basal ganglia, new from 01/31/2021. Consider sy stemic/metabolic etiologies such as nonketotic hyperglycemia. 2. Redemonstrated 1.3 cm calcified meningioma along the right frontal convexity. Otherwise No acute i ntracranial abnormality seen.
[2021-02-07] MEDS ORDERED: INSULIN DETEMIR (LEVEMIR) 100 UNIT/ML SYR SQ ONE (14:25)
--- NOTE | 2021-02-07 15:03 | P.PN ---
Subjective Progress Note Date: 02/07/21 CHIEF COMPLAINT: Cardiac arrest HISTORY OF PRESENT ILLNESS: Patient is currently intubated and on mechanical ventilation in the ICU. She was tentatively scheduled for tracheostomy and PEG tube placement. Trach and PEG currently been placed on hold. Afebrile WBC 15.4 Hgb 9.7 PHYSICAL EXAM: VITAL SIGNS: Reviewed. GENERAL: Well-developed in no acute distress. HEENT: No sclera icterus. Extraocular movements grossly intact. Moist buccal mucosa. Head is atraumatic, normocephalic. ABDOMEN: Soft. Nondistended. Nontender. NEUROLOGIC: Intubated ASSESSMENT: 1. Cardiac arrest 2. Acute hypoxic respiratory failure 3. Possible anoxic brain injury 4. History of DVT maintained on Eliquis 5. End-stage renal disease 6. History of Covid 19 infection in October 2020 PLAN: -Tracheostomy and PEG tube placement currently on hold for today -Possibility of tracheostomy and PEG tube placement for tomorrow. Awaiting family's decision -Continue supportive care -Continue ICU management Physician Public Health Technologist note has been reviewed by physician. Signing provider agrees with the documented findings, assessment, and plan of care. Objective - Vital Signs Vital signs: Vital Signs Temp 98.8 F 02/07/21 08:00 Pulse 61 02/07/21 14:00 Resp 12 02/07/21 14:00 BP 154/67 02/07/21 14:00 Pulse Ox 93 L 02/07/21 14:00 Intake & Output 02/06/21 02/07/21 02/07/21 18:59 06:59 18:59 Intake Total 839.000 842 436 Output Total 0 0 400 Balance 839.000 842 36 Intake: IV 223 210 70 0.9 @ 10ml/hr 120 110 70 levETIRAcetam IV 500 mg 100 100 In Sodium Chloride 0.9% 100 ml @ 400 mls/hr IVPB Q12HR [facility] Rx#:[id number] pressure bag 3 Intake, IV Titration 50.000 Amount Clevidipine Butyrate 25 50.000 mg In Empty Bag 1 bag @ 1 MG/HR 2 mls/hr IV .Q24H ELIF Rx#:[id number] Tube Feeding 476 442 306 Other 90 190 60 Output: Urine 0 0 Stool 400 Other: Voiding Method Incontinent Incontinent # Voids 0 0 ABP, PAP, CO, CI - Last Documented Arterial Blood Pressure 168/70 - Labs CBC & Chem 7: 02/07/21 05:15 02/07/21 05:15 Labs: Abnormal Lab Results - Last 24 Hours (Table) 02/06/21 02/06/21 02/07/21 Range/Units 17:10 23:32 05:15 WBC 15.4 H (3.8-10.6) k/uL RBC 3.11 L (3.80-5.40) m/uL Hgb 9.7 L (11.4-16.0) gm/dL Hct 29.6 L (34.0-46.0) % RDW 16.9 H (11.5-15.5) % Neutrophils # 13.4 H (1.3-7.7) k/uL ABG pO2 (83-108) mmHg ABG O2 Saturation (94-97) % Sodium (137-145) mmol/L Chloride (98-107) mmol/L Carbon Dioxide (22-30) mmol/L BUN (7-17) mg/dL Creatinine (0.52-1.04) mg/dL Glucose (74-99) mg/dL POC Glucose (mg/dL) 336 H 363 H (75-99) mg/dL Alkaline Phosphatase (38-126) U/L Total Protein (6.3-8.2) g/dL Albumin (3.5-5.0) g/dL 02/07/21 02/07/21 02/07/21 Range/Units 05:15 05:20 06:20 WBC (3.8-10.6) k/uL RBC (3.80-5.40) m/uL Hgb (11.4-16.0) gm/dL Hct (34.0-46.0) % RDW (11.5-15.5) % Neutrophils # (1.3-7.7) k/uL ABG pO2 120 H (83-108) mmHg ABG O2 Saturation 98.8 H (94-97) % Sodium 132 L (137-145) mmol/L Chloride 96 L (98-107) mmol/L Carbon Dioxide 20 L (22-30) mmol/L BUN 86 H (7-17) mg/dL Creatinine 6.19 H (0.52-1.04) mg/dL Glucose 376 H (74-99) mg/dL POC Glucose (mg/dL) 415 H (75-99) mg/dL Alkaline Phosphatase 153 H (38-126) U/L Total Protein 6.2 L (6.3-8.2) g/dL Albumin 3.0 L (3.5-5.0) g/dL 02/07/21 Range/Units 11:52 WBC (3.8-10.6) k/uL RBC (3.80-5.40) m/uL Hgb (11.4-16.0) gm/dL Hct (34.0-46.0) % RDW (11.5-15.5) % Neutrophils # (1.3-7.7) k/uL ABG pO2 (83-108) mmHg ABG O2 Saturation (94-97) % Sodium (137-145) mmol/L Chloride (98-107) mmol/L Carbon Dioxide (22-30) mmol/L BUN (7-17) mg/dL Creatinine (0.52-1.04) mg/dL Glucose (74-99) mg/dL POC Glucose (mg/dL) 375 H (75-99) mg/dL Alkaline Phosphatase (38-126) U/L Total Protein (6.3-8.2) g/dL Albumin (3.5-5.0) g/dL
--- NOTE | 2021-02-07 15:15 | P.PN ---
Subjective Patient is a pleasant 65-year-old the female was discharged from my service yesterday after she was treated for encephalopathy related to hypoglycemia. Patient had a cardiorespiratory arrest was pretty functional ambulate and go shopping at the time when she had a cardiorespiratory arrest, CPR was started and patient was later found to have went to her tachycardia, patient returned to sinus rhythm and 25 minutes subsequently was intubated and brought to emergency department. Patient did have history of ventricular tachycardia in the past pa tient was started on amiodarone at that time. Patient does have medical multiple medical problems including end-stage renal disease dialysis dependent chest x-ray showing significant infiltrate in the right lung mostly appears to be volume overload patient does have low-grade fever which can be secondary to cardiorespiratory arrest but patient was empirically started on Zosyn and patient is being admitted to ICU patient is presently intubated with FiO2 of 100% PEEP of 5 patient is breathing over the ventilator patient is on assist- control/volume controlled ventilation, on propofol patient does have conjunctival and corneal reflexes, does have gag reflex. No significant electrolyte abnormalities were appreciated. 01/29/2021 Patient is on ventilator support patient the doesn't have any significant response in after discontinue additional of sedation for about 4 hours. Patient was evaluated by multiple consultants including neurology patient had an EEG to assess for the brain function because of significant anoxic brain injury, patient has significant background slowing slowing encephalopathy. Patient still has brainstem reflexes that were described above. Patient had an echo Wh ich showed normal ejection fraction and grade 1 diastolic dysfunction. 01/30/2021 Patient was started back on propofol as patient is not tolerating ventilator patient remains on ventilatory support . Patient will undergo he hemodialysis tomorrow. Patient is on cisatracurium as well. Patient is undergoing repeat EEG to assess the brain function patient still has ranged stem reflexes at this time. 01/31/2021 Patient remains in intensity and neck done ventilatory support. Patient had a repeat EEG which she appeared to be bit better. Patient does have corneal reflex but doesn't have any conjunctival reflux, patient does have cough reflex biting on the ventilator. Patient remains on the propofol drip and patient neurological assessment it to be done off sedation although patient doesn't appear to be tolerating off sedation. Patient had dialysis today. 02/01/2021 Patient's sedation is being turned off at this time patient will be evaluated or sedation by neurology. Patient has sluggish are absent pupillary reflexes patient is still barely breathing over the ventilator at this time. Chest x-ray showing left lower lobe infiltrate today patient is on the NG tube feedings patient can use to be on Keppra prophylactically there is focal slowing on the EEG without any epileptiform discharges 02/02/2021 Patient is on sedation no symptom response patient has a corneal reflex but no conjunctival reflux patient does have some gag reflex as well although not responding. Patient was evaluated by neurology patient apparently had significant edema on the CT of the head that was done on january. Aspirin neurology chance of reasonable recovery is low and discussed with neurology and probably call family to discuss overall goals of care including comfort care terminal wean. 02/03/2021 Patient doesn't have any significant improvement in spite of hours of for holding off sedation. Doesn't appear to have significant improvement. Patient clinical condition and overall neurological status is bit worse. Discussed with the patient's family wants to continue the care at this time. 02/04/2021 Patient is off sedation for more than 30 hours without any significant improvem ent in her neurological status. Chest x-ray showing pulmonary edema patient will undergo hemodialysis today patient is unclear reflex her blood pressure. Patient is scheduled for tracheostomy and PEG tube placement on Sunday02/05/2021 patient overall neurological status and overall clinical condition remains the same patient is still not arousable at this time. 02/06/2021 patient is off sedation for about 2-3 days. Patient is presently on Tobrex remains intubated is undergoing hemodialysis as scheduled patient is on cleveprex for blood pressure. 02/07/2021 patient remains on ventilator support her, there is no neurological recovery patient had a repeat CT is showing attenuation in bilateral basal ganglia. Neurologist or had a lengthy discussion with the patient's family regarding neurological recovery which is expected to be poor. will undergo hemodialysis today ration blood sugars are significantly high increasing the dose of Levemir. Patient the need an extra 34 units of sliding scale. Patient blood sugars are high because of Decadron. Review of systems: Unable to obtain as patient is intubated All inpatient medications were reviewed and appropriate changes in these medications as dictated in the interval history and assessment and plan. Objective - Vital Signs Vital signs: Vital Signs Temp 98.8 F 02/07/21 08:00 Pulse 61 02/07/21 14:00 Resp 12 02/07/21 14:00 BP 154/67 02/07/21 14:00 Pulse Ox 93 L 02/07/21 14:00 Intake & Output 02/06/21 02/07/21 02/07/21 18:59 06:59 18:59 Intake Total 839.000 842 436 Output Total 0 0 400 Balance 839.000 842 36 Weight 103.6 kg Intake: IV 223 210 70 0.9 @ 10ml/hr 120 110 70 levETIRAcetam IV 500 mg 100 100 In Sodium Chloride 0.9% 100 ml @ 400 mls/hr IVPB Q12HR [facility] Rx#:[id number] pressure bag 3 Intake, IV Titration 50.000 Amount Clevidipine Butyrate 25 50.000 mg In Empty Bag 1 bag @ 1 MG/HR 2 mls/hr IV .Q24H [facility] Rx#:[id number] Tube Feeding 476 442 306 Other 90 190 60 Output: Urine 0 0 Stool 400 Other: Voiding Method Incontinent Incontinent # Voids 0 0 ABP, PAP, CO, CI - Last Documented Arterial Blood Pressure 168/70 - Exam PHYSICAL EXAMINATION: GENERAL: Patient is intubated sedated, does have an NG tube with some bloody drainage from the NG tube. Patient has a central line and arterial line HEENT: Pupils are round and and constricted at this time because of propofol. EOMI. No scleral icterus. No conjunctival pallor. Normocephalic, atraumatic. No pharyngeal erythema. No thyromegaly. CARDIOVASCULAR: S1 and S2 present. No murmurs, rubs, or gallops. PULMONARY: Chest is clear to auscultation, no wheezing or crackles. ABDOMEN: Soft, nontender, nondistended, normoactive bowel sounds. No palpable organomegaly. MUSCULOSKELETAL: No joint swelling or deformity. EXTREMITIES: No cyanosis, clubbing, bilateral pedal edema which is chronic NEUROLOGICAL: Intubated sedated but does have brainstem reflexes, patient doesn't have cough reflex is breathing over the ventilator, does have gag reflex. SKIN: Stage I and 2 ulcers which doesn't appear to be infected - Labs CBC & Chem 7: 02/07/21 05:15 02/07/21 05:15 Labs: Abnormal Lab Results - Last 24 Hours (Table) 02/06/21 02/06/21 02/07/21 Range/Units 17:10 23:32 05:15 WBC 15.4 H (3.8-10.6) k/uL RBC 3.11 L (3.80-5.40) m/uL Hgb 9.7 L (11.4-16.0) gm/dL Hct 29.6 L (34.0-46.0) % RDW 16.9 H (11.5-15.5) % Neutrophils # 13.4 H (1.3-7.7) k/uL ABG pO2 (83-108) mmHg ABG O2 Saturation (94-97) % Sodium (137-145) mmol/L Chloride (98-107) mmol/L Carbon Dioxide (22-30) mmol/L BUN (7-17) mg/dL Creatinine (0.52-1.04) mg/dL Glucose (74-99) mg/dL POC Glucose (mg/dL) 336 H 363 H (75-99) mg/dL Alkaline Phosphatase (38-126) U/L Total Protein (6.3-8.2) g/dL Albumin (3.5-5.0) g/dL 02/07/21 02/07/21 02/07/21 Range/Units 05:15 05:20 06:20 WBC (3.8-10.6) k/uL RBC (3.80-5.40) m/uL Hgb (11.4-16.0) gm/dL Hct (34.0-46.0) % RDW (11.5-15.5) % Neutrophils # (1.3-7.7) k/uL ABG pO2 120 H (83-108) mmHg ABG O2 Saturation 98.8 H (94-97) % Sodium 132 L (137-145) mmol/L Chloride 96 L (98-107) mmol/L Carbon Dioxide 20 L (22-30) mmol/L BUN 86 H (7-17) mg/dL Creatinine 6.19 H (0.52-1.04) mg/dL Glucose 376 H (74-99) mg/dL POC Glucose (mg/dL) 415 H (75-99) mg/dL Alkaline Phosphatase 153 H (38-126) U/L Total Protein 6.2 L (6.3-8.2) g/dL Albumin 3.0 L (3.5-5.0) g/dL 02/07/21 Range/Units 11:52 WBC (3.8-10.6) k/uL RBC (3.80-5.40) m/uL Hgb (11.4-16.0) gm/dL Hct (34.0-46.0) % RDW (11.5-15.5) % Neutrophils # (1.3-7.7) k/uL ABG pO2 (83-108) mmHg ABG O2 Saturation (94-97) % Sodium (137-145) mmol/L Chloride (98-107) mmol/L Carbon Dioxide (22-30) mmol/L BUN (7-17) mg/dL Creatinine (0.52-1.04) mg/dL Glucose (74-99) mg/dL POC Glucose (mg/dL) 375 H (75-99) mg/dL Alkaline Phosphatase (38-126) U/L Total Protein (6.3-8.2) g/dL Albumin (3.5-5.0) g/dL Assessment and Plan Plan: -Cardiorespiratory arrest leading to respiratory failure: Secondary to ventricular tachycardia patient was evaluated by cardiology echocardiogram as mentioned above . Repeat EEG showed some improvement in background slowing. She and had a repeat EEG on 02/06/2021 which continues to show diffuse slowing significant anoxic brain injury. Patient is on and off sedation no significant improvement in mental status offsedation. Patient has significant anoxic brain injury over all prognosis is poor, possibility of reasonable neurological recovery is low same thing was discussed with the family . For now family wants to continue the care. Patient will undergo tracheostomy and PEG tube placement on Sunday -Acute hypoxic respiratory failure leading to anoxic brain injury. -Volume overload: Secondary to end-stage renal disease nephrology evaluated the patient. Patient is undergoing hemodialysis as scheduled -Fever on admission: Most probably secondary to cardiorespiratory arrest blood cultures so far are negative except for sputum cultures showing gram-positive bacilli and cocci which is usually oral cavity bacteria, patient is presently not on any antibiotics at this time -Recent covid 19 infection and month of October, patient had a repeat Covid 19 test that was positive again this is probably not a new infection but residual inactive RNA fragments. -End-stage renal disease, dialysis dependent -Type 2 diabetes mellitus History of DVT patient had a paratracheal hematoma but from attempted central line placement because of which I believe Eliquis is being held at this time. -Hypertension -Diabetic peripheral neuropathy -bilateral lower extremity ulcers doesn't appear to have cellulitis but does have chronic lymphedema Patient prognosis is extremely poor.
--- NOTE | 2021-02-07 16:53 | P.PN ---
Subjective Progress Note Date: 02/07/21 I'm seeing the patient since seening her last on 01/30/2021. The patient was followed up with Dr. Guajardo, please refer to hisfurther neurological workup. Per the patient nurse the patient has not been on sedation since 02/03/2021. Currently she is on spontaneous rib breathing. The per the patient's nurse the patient is not verbalizing, not following any commands. The patient had a repeat EEG on 02/05/2021 and is reported as abnormal EEG with diffuse slowing consistent with severe cerebral dysfunction of toxic metabolic or anoxic etiology. Clinical correlation is advised. Objective - Vital Signs Vital signs: Vital Signs Temp 98.8 F 02/07/21 16:16 Pulse 66 02/07/21 16:16 Resp 12 02/07/21 16:16 BP 163/66 02/07/21 16:16 Pulse Ox 93 L 02/07/21 15:47 Intake & Output 02/06/21 02/07/21 02/07/21 18:59 06:59 18:59 Intake Total 839.000 842 568 Output Total 0 0 2900 Balance 839.000 842 -2332 Weight 103.6 kg Intake: IV 223 210 100 0.9 @ 10ml/hr 120 110 100 levETIRAcetam IV 500 mg 100 100 In Sodium Chloride 0.9% 100 ml @ 400 mls/hr IVPB Q12HR [facility] Rx#:[id number] pressure bag 3 Intake, IV Titration 50.000 Amount Clevidipine Butyrate 25 50.000 mg In Empty Bag 1 bag @ 1 MG/HR 2 mls/hr IV .Q24H [facility] Rx#:[id number] Tube Feeding 476 442 408 Other 90 190 60 Output: Urine 0 0 Stool 400 Hemodialysis 2500 Other: Voiding Method Incontinent Incontinent # Voids 0 0 ABP, PAP, CO, CI - Last Documented Arterial Blood Pressure 182/76 - Exam GENERAL: The patient is lying in bed and is not in acute distress. Not on any sedation. LUNG: Intubated on sponatenous breathing. Not labored breathing. Breathing over the vent. NEUROLOGICAL: Limited because of her condition. Higher mental function: GCS 5 (E3,VT1,M1). Patient is non responisve and does verbalized or attempt to verbalize and does not follow commands. Cranial nerves: Would open eyes to painful stimuli. The pupils are round, equal and reactive to light. Pupils are round 3mm bilaterally. Positive corneal reflex bilaterally. No facial weakness. Positive cough and gag reflex. Motor: No movement noted sponateously or to painful stimuli. Decrease tone in bilateral upper extremities. Has lymphedema of bilateral lower extremities. Cerebellum: Could not assess. Sensation: Could not assess. Reflexes (right/left): 1+ uppers. 0 in lowers and limited because of lymphedema. Plantars are mute bilaterally. - Labs CBC & Chem 7: 02/07/21 05:15 02/07/21 05:15 Labs: Abnormal Lab Results - Last 24 Hours (Table) 02/06/21 02/06/21 02/07/21 Range/Units 17:10 23:32 05:15 WBC 15.4 H (3.8-10.6) k/uL RBC 3.11 L (3.80-5.40) m/uL Hgb 9.7 L (11.4-16.0) gm/dL Hct 29.6 L (34.0-46.0) % RDW 16.9 H (11.5-15.5) % Neutrophils # 13.4 H (1.3-7.7) k/uL ABG pO2 (83-108) mmHg ABG O2 Saturation (94-97) % Sodium (137-145) mmol/L Chloride (98-107) mmol/L Carbon Dioxide (22-30) mmol/L BUN (7-17) mg/dL Creatinine (0.52-1.04) mg/dL Glucose (74-99) mg/dL POC Glucose (mg/dL) 336 H 363 H (75-99) mg/dL Alkaline Phosphatase (38-126) U/L Total Protein (6.3-8.2) g/dL Albumin (3.5-5.0) g/dL 02/07/21 02/07/21 02/07/21 Range/Units 05:15 05:20 06:20 WBC (3.8-10.6) k/uL RBC (3.80-5.40) m/uL Hgb (11.4-16.0) gm/dL Hct (34.0-46.0) % RDW (11.5-15.5) % Neutrophils # (1.3-7.7) k/uL ABG pO2 120 H (83-108) mmHg ABG O2 Saturation 98.8 H (94-97) % Sodium 132 L (137-145) mmol/L Chloride 96 L (98-107) mmol/L Carbon Dioxide 20 L (22-30) mmol/L BUN 86 H (7-17) mg/dL Creatinine 6.19 H (0.52-1.04) mg/dL Glucose 376 H (74-99) mg/dL POC Glucose (mg/dL) 415 H (75-99) mg/dL Alkaline Phosphatase 153 H (38-126) U/L Total Protein 6.2 L (6.3-8.2) g/dL Albumin 3.0 L (3.5-5.0) g/dL 02/07/21 Range/Units 11:52 WBC (3.8-10.6) k/uL RBC (3.80-5.40) m/uL Hgb (11.4-16.0) gm/dL Hct (34.0-46.0) % RDW (11.5-15.5) % Neutrophils # (1.3-7.7) k/uL ABG pO2 (83-108) mmHg ABG O2 Saturation (94-97) % Sodium (137-145) mmol/L Chloride (98-107) mmol/L Carbon Dioxide (22-30) mmol/L BUN (7-17) mg/dL Creatinine (0.52-1.04) mg/dL Glucose (74-99) mg/dL POC Glucose (mg/dL) 375 H (75-99) mg/dL Alkaline Phosphatase (38-126) U/L Total Protein (6.3-8.2) g/dL Albumin (3.5-5.0) g/dL Assessment and Plan Assessment: This is a 65-year-old woman with multiple medical problems that presented emergency department on 01/28/2021 after a cardiac arrest in which she suffered around 13:10. Seems that the she had a cardiac arrest lasting for 25 minutes * Encephalopathy due to multiple factorial: Anoxic brain injury from prolonged cardiac arrest and component of metabolic encephalopathy (uncontrolled sugar), underlying pneuomonia from COVID 19. * Cardiac arrest on 01/28/2021 lasting 25 minutes * Acute pneumonia due to COVID 19 * Uncontrolled the diabetes mellitus and has brittle sugar level (episodes of hypoglycemia 40's to 50's in Nov and December/2020) * 1.3 cm calcified meningioma along the right frontal convexity * Mild hyponatremia * Hypertension * End-stage renal is on dialysis * Carotid artery disease * DVT on Eliquis * History of poor peripheral neuropathy Plan: Continue Keppra 500 mg 1 tablet twice a day. An additional 500mg post dialysis (M,W,F). Continue neuro checks Repeat CT of the head that today shows symmetrical increased attenuation within the bilateral basilar ganglia, new from 01/31/2021. Consider symmetrical/metabolic etiology such as nonketotic hyperglycemia. Redemonstrated 1.3 cm calcified meningioma along the right frontal convexity. Otherwise no acute intracranial abnormality seen. Possible trach and PEG. We'll defer the rest of medical management to the primary/ICU team. The patient prognosis is poor and has poor meaningful recovery due to prolonged cardiac arrest and multiple comorbitidies. Has only has brainstem reflexes. I spoke with the patient's (Solomon) and patient's son via phone and relayed my impression to them. The family would like the patient to be transferred tertiary center for further work-up (such as MRI of the brain which we cannot perform since patient is intubated and on ventilator. I notified the family members that getting the MRI would not place change roof bolter). The plan was discussed with the patient's nurse. Lenny Fernandez M.D. Neuro-hospitalist Time with Patient: Less than 30
[2021-02-07] MEDS: levETIRAcetam 500 MG TAB PO SCH (18:08)
[2021-02-07 18:11] LABS: Glucose,Whole Blood 215 mg/dL (75-99)
[2021-02-07] MEDS: amLODIPine 10 MG TAB PO SCH (20:42)
[2021-02-07 23:29] LABS: Glucose,Whole Blood 184 mg/dL (75-99)
[2021-02-08 04:08] LABS: Anisocytosis Slight; Basophils % (A) 0 %; Eosinophils % (A) 0 %; HCT 33.4 % (34.0-46.0); HGB 10.7 gm/dL (11.4-16.0); Lymphocytes # (A) 1.3 k/uL (1.0-4.8); Lymphocytes % (A) 7 %; MCH 30.1 pg (25.0-35.0); MCHC 32.1 g/dL (31.0-37.0); MCV 93.7 fL (80.0-100.0); Mean Platelet Volume 8.1; Monocytes # (A) 0.6 k/uL (0-1.0); Monocytes % (A) 3 %; Neutrophils # (A) 16.1 k/uL (1.3-7.7); Neutrophils % (A) 89 %; Platelet Count 435 k/uL (150-450); RBC 3.56 m/uL (3.80-5.40); RDW 16.9 % (11.5-15.5); WBC 18.1 k/uL (3.8-10.6)
[2021-02-08 04:26] LABS: Calcium 9.3 mg/dL (8.4-10.2); Potassium 3.8 mmol/L (3.5-5.1); Total Bilirubin 0.4 mg/dL (0.2-1.3); Total Protein 6.4 g/dL (6.3-8.2)
[2021-02-08 05:18] LABS: ABG Base Excess 4.5 mmol/L; ABG HCO3 29 mmol/L (21-25); ABG PCO2 42 mmHg (35-45); ABG PH 7.44 (7.35-7.45); ABG PO2 130 mmHg (83-108); ABG TCO2 30 mmol/L (19-24)
--- NOTE | 2021-02-08 06:01 | P.PN ---
Subjective Progress Note Date: 02/08/21 On 02/07/2021 on seeing the patient for a follow-up. The patient is post cardiac arrest and hypoxic encephalopathy. The patient remains intubated on a mechanical ventilator. The patient is currently off sedation and neurologic function of being monitored very closely. The patient has been off sedation since 02/03/2021. Currently on assist control mode at the rate of 14 with a tidal volume of 350 and FiO2 of 30% with a PEEP of 5. The patient's chest x-ray is showing infiltrates bilaterally more significant in the left lower lobe. Blood gases is pending for now. Dr Fernandez had a discussion was done with the family earlier prior to l and the plan was to proceed with tracheostomy tube insertion for long-term need of ventilatory support. The patient meanwhile is receiving enteral feeding for nutritional support and the patient is currently on Nepro 34 mL an hour per goal. The patient is requiring dialysis intermittently. That the patient has an incisional disease and she has been on dialysis on outpatient basis 3 times a week. The patient has nephrology is on the case. The Cleviprex was discontinued and the patient's blood pressure is being monitored. Noted the patient has multiple medical problems and comorbidities. The patient has end-stage renal disease. The patient undergoes hemodialysis. The patient also has coronary artery disease, diabetes mellitus type 2 and the patient's had V. tach and cardiac arrest. The family initiated a CPR according to the history as the patient was found to be unresponsive. The patient got defibrillated and CPR was continued by EMS. The downtime was estimated to be at least 20 minutes. The patient has been in intensive care unit since 01/30/2021. He is post V. fib arrest. He is also on Norvasc 10 mg a day for blood pressure control. He is on Keppra for any seizure activity, prophylaxis. The patient is on aspirin. The patient is off sedation. The patient is on Decadron 6 mg IV scheduled. Other comorbidities include diabetic peripheral neuropathy, chronic lower extremity ulcers and onset cellulitis and the patient has chronic lymphedema. I further can't understand the patient's family is interested in transferring her to another facility. Meanwhile, the patient's blood work today showed a white cell count 15.4 with a hemoglobin of 9.7 and the platelet count of 371. Creatinine is 86 with a creatinine of 6.1 and sodium level of 132. The chest x-ray from today is essentially clear. The patient's ET tube is in a good location. The patient has a G-tube in place. No significant pulmonary infiltration. The patient is tolerating her enteral feeding for nutritional support. Her last session of hemodialysis was on Sunday which is 3 days ago. No seizure activity has been noted. The patient remains on Decadron 6 mg IV every 24 hours. 02/08/2021, the patient remains off sedation. There is a case of hypoxic encephalopathy and the patient has not shown any signs of neurologic recovery. No seizure activity has been noted. I discussed the case with neurology and Dr. Galvez has also spoken to the family in this regard. The patient remains off sedation. Neurologic functions are quite impaired. She does have a weak cough and gag. She is completely unresponsive to any verbal stimulation. He does not withdraw to painful stimulation. She is currently on assist control mode at the rate of 14 with a tidal volume of 350 and FiO2 of 30% with a PEEP of 5. Yesterday, I give the patient a breathing trial with a pressure support of 10 and PEEP of 5. She was able to tolerate that for a total of 10 hours and ultimately she had to be placed back on assist control mode of ventilation yesterday. The patient underwent also dialysis yesterday. Nephrology remains on the case. The patient is still off Cleviprex Blood pressure is currently at 157/64. The patient is also on Norvasc 10 mg by mouth daily in addition to hydralazine 100 mg by mouth 3 times a day regarding blood pressure control. Cardiac rhythm is sinus. The blood gases from today showed a pH of 7.44 with a pCO2 of 42 and pO2 of 130 and this was done on assist control mode of ventilation. Chest x-ray still pending for now. Meanwhile, the rest of the blood work include a CBC shows a white cell count of 18 with a hemoglobin of 10.7 and the platelets of 436. TPN is at 58 with a creatinine of 4.1 and the patient's potassium level is at 3.8. The patient is receiving enteral feeding for nutritional support and the patient is currently on Nepro running at the rate of 34 mL an hour. She remains on Decadron 6 mg IV every 24 hours been no seizure activity has been noted. No other significant events overnight. She remains on [facility]. Neurologist on the case. Objective - Vital Signs Vital signs: Vital Signs Temp 97.8 F 02/08/21 04:00 Pulse 63 02/08/21 05:00 Resp 16 02/08/21 05:00 BP 154/67 02/07/21 18:30 Pulse Ox 98 02/08/21 05:00 Intake & Output 02/07/21 02/07/21 02/08/21 06:59 18:59 06:59 Intake Total 842 764 720 Output Total 0 2900 Balance 842 -2136 720 Weight 103.6 kg 103.4 kg Intake: IV 210 130 230 0.9 @ 10ml/hr 110 130 100 levETIRAcetam IV 500 mg 100 100 In Sodium Chloride 0.9% 100 ml @ 400 mls/hr IVPB Q12HR [facility] Rx#:[id number] pressure bag 30 Tube Feeding 442 544 340 Other 190 90 150 Output: Urine 0 Stool 400 Hemodialysis 2500 Other: Voiding Method Incontinent Incontinent Incontinent # Voids 0 ABP, PAP, CO, CI - Last Documented Arterial Blood Pressure 160/61 - Exam Currently intubated, and mechanically ventilated. Currently on no sedation. The patient remains completely unresponsive. Orotracheal and orogastric tube are both in place and the patient is an volume cycled mechanical ventilation. HEENT examination is grossly unremarkable. Neck supple. Full range of motion. No adenopathy thyromegaly or neck vein distention. Cardiovascular examination reveals regular rhythm rate. S1-S2 normal. No S3 or S4. No discernible murmur noted. Heart sounds are distant. Lungs reveal diffuse bilateral rhonchi and crackles. There are no wheezes. Breath sounds are equal bilaterally. Abdomen soft bowel sounds are heard. No masses or tenderness. Extremities are intact. No cyanosis or clubbing. There is bilateral lower extremity edema. Skin is without rash or lesion. Neurologic examination is unchanged. Off of sedation, she opens her eyes, but there is no purposeful movements. Pupils are equal and symmetrical. The patient has a preferential gaze to the left. No nystagmus. No clonus. Does not withdraw to any painful stimulation. Reflexes are diminished in all 4 extremities. No facial asymmetry. - Labs CBC & Chem 7: 02/08/21 03:50 02/08/21 03:50 Labs: Abnormal Lab Results - Last 24 Hours (Table) 02/07/21 02/07/21 02/07/21 Range/Units 06:20 11:52 18:09 WBC (3.8-10.6) k/uL RBC (3.80-5.40) m/uL Hgb (11.4-16.0) gm/dL Hct (34.0-46.0) % RDW (11.5-15.5) % Neutrophils # (1.3-7.7) k/uL ABG pO2 120 H (83-108) mmHg ABG HCO3 (21-25) mmol/L ABG Total CO2 (19-24) mmol/L ABG O2 Saturation 98.8 H (94-97) % Sodium (137-145) mmol/L Chloride (98-107) mmol/L BUN (7-17) mg/dL Creatinine (0.52-1.04) mg/dL Glucose (74-99) mg/dL POC Glucose (mg/dL) 375 H 215 H (75-99) mg/dL Alkaline Phosphatase (38-126) U/L Albumin (3.5-5.0) g/dL 02/07/21 02/08/21 02/08/21 Range/Units 23:27 03:50 03:50 WBC 18.1 H (3.8-10.6) k/uL RBC 3.56 L (3.80-5.40) m/uL Hgb 10.7 L (11.4-16.0) gm/dL Hct 33.4 L (34.0-46.0) % RDW 16.9 H (11.5-15.5) % Neutrophils # 16.1 H (1.3-7.7) k/uL ABG pO2 (83-108) mmHg ABG HCO3 (21-25) mmol/L ABG Total CO2 (19-24) mmol/L ABG O2 Saturation (94-97) % Sodium 134 L (137-145) mmol/L Chloride 96 L (98-107) mmol/L BUN 58 H (7-17) mg/dL Creatinine 4.17 H (0.52-1.04) mg/dL Glucose 185 H (74-99) mg/dL POC Glucose (mg/dL) 184 H (75-99) mg/dL Alkaline Phosphatase 160 H (38-126) U/L Albumin 3.0 L (3.5-5.0) g/dL 02/08/21 Range/Units 05:08 WBC (3.8-10.6) k/uL RBC (3.80-5.40) m/uL Hgb (11.4-16.0) gm/dL Hct (34.0-46.0) % RDW (11.5-15.5) % Neutrophils # (1.3-7.7) k/uL ABG pO2 130 H (83-108) mmHg ABG HCO3 29 H (21-25) mmol/L ABG Total CO2 30 H (19-24) mmol/L ABG O2 Saturation 99.0 H (94-97) % Sodium (137-145) mmol/L Chloride (98-107) mmol/L BUN (7-17) mg/dL Creatinine (0.52-1.04) mg/dL Glucose (74-99) mg/dL POC Glucose (mg/dL) (75-99) mg/dL Alkaline Phosphatase (38-126) U/L Albumin (3.5-5.0) g/dL Assessment and Plan Plan: 1 Cardiac arrest most likely secondary to cardiac arrhythmia initial rhythm was ventricular fibrillation upon EMS arrival. The patient came into the hospital on 01/30/2021 patient is in the intensive care unit since. The patient has obvious signs of anoxic encephalopathy. Estimated down time of the time of the cardiac arrest was around 20 minutes. The patient currently is hemodynamically stable on no pressors 2 Acute hypoxic respiratory failure secondary to above, with probable significant anoxic brain injury. On my neurologic evaluation, the patient has spontaneous eye opening and the patient has a weak cough. She is not following any commands and she does not withdraw to any painful stimulation. In terms of her respiratory failure, the patient is able to tolerate pressure support mode of ventilation with a pressure support of 10 and PEEP of 5 for a total of 10 hours yesterday. Eduardo be done today. I'm not so sure about extubation as the patient is completely unresponsive and I'm concerned about airway p rotection. 3 Bilateral interstitial edema most likely secondary to end-stage renal disease and suspect acute systolic congestive heart failure, likely ischemic in nature. 4 Anoxic brain injury and metabolic encephalopathy secondary to cardiac arrest. The patient is currently off sedation and the patient is not showing any significant neurologic recovery. 5 Type 2 diabetes. The patient is currently on Levemir insulin at 35 units along with vascular coverage. 6 Benign essential hypertension. 7 end stage renal disease on hemodialysis. The patient is undergoing episodic dialysis 8 History of carotid artery disease. 9 History of DVT 10 History of diabetic peripheral neuropathy. 11 History of cardiac arrhythmia requiring cardiac ablation. 12 Chronic lymphedema and cellulitis of both lower extremities. 13 History of irritable bowel syndrome. 14 History of covid 19 infection in October of 2020, and the patient also tested positive on 01/28/2021. 15 Possible right paratracheal hematoma from attempted central line placement, CT of the chest was ordered. Plan: Continue ventilator support, no active pulmonary issues Keep the patient off sedation and monitor the mental status neurologist on the case and the last EEG was done on 02/05/2021 and the results showed diffuse s lowing consistent with cerebral dysfunction and anoxic encephalopathy. I confirmed that the patient has significant anoxic encephalopathy and I will also discuss this with neurology was been in touch with the family. tracheostomy tube and a PEG tube was declined by the family. Wean of clevidipine drip and the patient is currently off the drips and use oral antihypertensive medication for blood pressure control Neurologist on the case regarding anoxic encephalopathy Continue Keppra Started patient on Lantus 35 units along with NovoLog sliding scale coverage and monitor blood sugar control Family is interested in moving the patient to another facility The prognosis extremely poor We'll give the patient another spot has breathing trial a pressure support of 10 and a PEEP of 5 Continue enteral feeding for nutritional support Overall prognosis extremely poor baseline above-mentioned comorbidities. We'll continue to follow. Is a critically care evaluation was done more than 30 minutes. Time with Patient: Greater than 30
[2021-02-08 06:48] LABS: Glucose,Whole Blood 221 mg/dL (75-99)
[2021-02-08] MEDS: INSULIN ASPART (NovoLOG) 100 UNIT/ML VIAL SQ SCH ×3 (07:08→18:07)
[2021-02-08] MEDS: CALCIUM ACETATE 667 MG TAB PO SCH ×2 (07:08→15:32)
[2021-02-08] MEDS: INSULIN DETEMIR (LEVEMIR) 100 UNIT/ML SYR SQ SCH (07:08)
[2021-02-08] MEDS: ALBUTEROL HFA INHALER INHALATION PRN ×4 (08:14→21:44)
[2021-02-08] MEDS: PANTOPRAZOLE 40 MG/10 ML VIAL IVP SCH ×2 (08:55→20:51)
[2021-02-08] MEDS: DEXAMETHASONE SOD PHOSPHATE 10 MG/ML 1 ML VIAL IV SCH (08:56)
[2021-02-08] MEDS: levETIRAcetam IV 500 MG in SODIUM CHLORIDE 0.9% 100 ML IVPB SCH ×2 (08:56→20:51)
[2021-02-08] MEDS: ZINC SULFATE 220 MG CAP PO SCH ×2 (08:56→20:51)
[2021-02-08] MEDS: ASPIRIN 81 MG PO SCH (08:56)
[2021-02-08] MEDS: hydrALAZINE HCL 50 MG TAB PO SCH ×3 (08:56→20:51)
[2021-02-08] MEDS: CHLORHEXIDINE GLUCONATE 15 ML CUP MUCOUS MEM SCH ×2 (08:57→20:51)
--- NOTE | 2021-02-08 09:08 | XR ---
EXAMINATION TYPE: XR chest 1V portable DATE OF EXAM: 02/08/2021 Comparison: 02/07/2021 Clinical History: 65-year-old female Rhonchi Findings: ET tube satisfactory. NG tube courses below the diaphragm. Patient is rotated towards the left. Heart borderline enlarged. Interstitial densities may be slightly increased. Retrocardiac opacity may be i ncreased. Impression: Borderline heart size. Interstitial densities may be slightly increased. Correlate to exclude mild pu lmonary vascular congestion. Retrocardiac opacity is also increased. Possible small effusion with adj acent atelectasis and/or consolidation.
--- NOTE | 2021-02-08 09:13 | P.PN ---
Subjective Progress Note Date: 02/08/21 I saw the patient at bedside and no change. As dictated in my prior progress note, sedation was stopped on 02/03/2021 and the patient continues not to be verbalizing or following any commands or moving of any extremities. Patient's blood sugar and is in the range of 180s to 220 which is better than prior. Objective - Vital Signs Vital signs: Vital Signs Temp 97.1 F L 02/08/21 08:00 Pulse 65 02/08/21 08:00 Resp 15 02/08/21 08:00 BP 154/67 02/08/21 08:00 Pulse Ox 99 02/08/21 08:00 Intake & Output 02/07/21 02/08/21 02/08/21 18:59 06:59 18:59 Intake Total 764 767 171 Output Total 2900 Balance -2136 767 171 Weight 103.6 kg 103.4 kg Intake: IV 130 243 39 0.9 @ 10ml/hr 130 110 30 levETIRAcetam IV 500 mg 100 In Sodium Chloride 0.9% 100 ml @ 400 mls/hr IVPB Q12HR [facility] Rx#:[id number] pressure bag 33 9 Tube Feeding 544 374 102 Other 90 150 30 Output: Stool 400 Hemodialysis 2500 Other: Voiding Method Incontinent Incontinent Incontinent ABP, PAP, CO, CI - Last Documented Arterial Blood Pressure 165/63 - Exam GENERAL: The patient is lying in bed and is not in acute distress. Not on any sedation. LUNG: Intubated on sponatenous breathing. Not labored breathing. NEUROLOGICAL: Limited because of her condition. Higher mental function: GCS 5 (E3,VT1,M1). Patient is non responisve and does verbalized or attempt to verbalize and does not follow commands. Cranial nerves: Would open eyes to painful stimuli. The pupils are round, equal and reactive to light. Pupils are round 3mm bilaterally. Positive corneal reflex bilaterally. No facial weakness. Positive cough and gag reflex. Motor: No movement noted sponateously or to painful stimuli. Decrease tone in bilateral upper extremities. Has lymphedema of bilateral lower extremities. Cerebellum: Could not assess. Sensation: Could not assess. Reflexes (right/left): 1+ uppers. 0 in lowers and limited because of lymphedema. Plantars are mute bilaterally. - Labs CBC & Chem 7: 02/08/21 03:50 02/08/21 03:50 Labs: Abnormal Lab Results - Last 24 Hours (Table) 02/07/21 02/07/21 02/07/21 Range/Units 11:52 18:09 23:27 WBC (3.8-10.6) k/uL RBC (3.80-5.40) m/uL Hgb (11.4-16.0) gm/dL Hct (34.0-46.0) % RDW (11.5-15.5) % Neutrophils # (1.3-7.7) k/uL ABG pO2 (83-108) mmHg ABG HCO3 (21-25) mmol/L ABG Total CO2 (19-24) mmol/L ABG O2 Saturation (94-97) % Sodium (137-145) mmol/L Chloride (98-107) mmol/L BUN (7-17) mg/dL Creatinine (0.52-1.04) mg/dL Glucose (74-99) mg/dL POC Glucose (mg/dL) 375 H 215 H 184 H (75-99) mg/dL Alkaline Phosphatase (38-126) U/L Albumin (3.5-5.0) g/dL 02/08/21 02/08/21 02/08/21 Range/Units 03:50 03:50 05:08 WBC 18.1 H (3.8-10.6) k/uL RBC 3.56 L (3.80-5.40) m/uL Hgb 10.7 L (11.4-16.0) gm/dL Hct 33.4 L (34.0-46.0) % RDW 16.9 H (11.5-15.5) % Neutrophils # 16.1 H (1.3-7.7) k/uL ABG pO2 130 H (83-108) mmHg ABG HCO3 29 H (21-25) mmol/L ABG Total CO2 30 H (19-24) mmol/L ABG O2 Saturation 99.0 H (94-97) % Sodium 134 L (137-145) mmol/L Chloride 96 L (98-107) mmol/L BUN 58 H (7-17) mg/dL Creatinine 4.17 H (0.52-1.04) mg/dL Glucose 185 H (74-99) mg/dL POC Glucose (mg/dL) (75-99) mg/dL Alkaline Phosphatase 160 H (38-126) U/L Albumin 3.0 L (3.5-5.0) g/dL 02/08/21 Range/Units 06:46 WBC (3.8-10.6) k/uL RBC (3.80-5.40) m/uL Hgb (11.4-16.0) gm/dL Hct (34.0-46.0) % RDW (11.5-15.5) % Neutrophils # (1.3-7.7) k/uL ABG pO2 (83-108) mmHg ABG HCO3 (21-25) mmol/L ABG Total CO2 (19-24) mmol/L ABG O2 Saturation (94-97) % Sodium (137-145) mmol/L Chloride (98-107) mmol/L BUN (7-17) mg/dL Creatinine (0.52-1.04) mg/dL Glucose (74-99) mg/dL POC Glucose (mg/dL) 221 H (75-99) mg/dL Alkaline Phosphatase (38-126) U/L Albumin (3.5-5.0) g/dL Assessment and Plan Assessment: This is a 65-year-old woman with multiple medical problems that presented emergency department on 01/28/2021 after a cardiac arrest in which she suffered around 13:10. Seems that the she had a cardiac arrest lasting for 25 minutes * Encephalopathy due to multiple factorial: Anoxic brain injury from prolonged cardiac arrest and component of metabolic encephalopathy (uncontrolled sugar), underlying pneuomonia from COVID 19. Sedation has been stopped since 02/03/2021. * Cardiac arrest on 01/28/2021 lasting 25 minutes * Acute pneumonia due to COVID 19 * Uncontrolled the diabetes mellitus and has brittle sugar level (episodes of hypoglycemia 40's to 50's in Nov and December/2020)--improving * 1.3 cm calcified meningioma along the right frontal convexity * Mild hyponatremia--slight improvement * Hypertension * End-stage renal is on dialysis * Carotid artery disease * DVT on Eliquis * History of poor peripheral neuropathy Plan: Continue Keppra 500 mg 1 tablet twice a day. An additional 500mg post dialysis (M,W,F). Continue neuro checks Repeat CT of the head on 02/07/21 shows symmetrical increased attenuation within the bilateral basilar ganglia, new from 01/31/2021. Consider symmetrical/metabolic etiology such as nonketotic hyperglycemia. Redemonstrated 1.3 cm calcified meningioma along the right frontal convexity. Otherwise no acute intracranial abnormality seen. Possible trach and PEG. We'll defer the rest of medical management to the primary/ICU team. The patient prognosis is poor and has poor meaningful recovery due to prolonged cardiac arrest and multiple comorbitidies. Has only has brainstem reflexes. I spoke with the patient's family members multiple times ( (Solomon) and p zaira's son as well as daughter) via phone and relayed my impression to them. The family would like the patient to be transferred tertiary center for further work-up (such as MRI of the brain which we cannot perform since patient is intubated and on ventilator. I notified the family members that getting the MRI would not change control manager). The plan was discussed with the patient's nurse. Lenny Fernandez M.D. Neuro-hospitalist Time with Patient: Less than 30
--- NOTE | 2021-02-08 10:27 | P.PN ---
Subjective Patient is seen in follow-up for end-stage renal disease. She is maintained on hemodialysis on Sunday schedule. Intubated. On 30% FiO2. Severe anoxic brain injury. Remains off sedation. Vital signs are stable. General: The patient appeared well nourished and normally developed. HEENT: Intubated. LUNGS: Breath sounds decreased. HEART: Rate and Rhythm are regular. ABDOMEN: Soft, obese. EXTREMITITES: Chronic changes noted. 1+ edema. Chronic lymphedema. Objective - Vital Signs Vital signs: Vital Signs Temp 97.1 F L 02/08/21 08:00 Pulse 58 L 02/08/21 09:00 Resp 11 L 02/08/21 09:00 BP 154/67 02/08/21 09:00 Pulse Ox 98 02/08/21 09:00 Intake & Output 02/07/21 02/08/21 02/08/21 18:59 06:59 18:59 Intake Total 764 767 252 Output Total 2900 Balance -2136 767 252 Weight 103.6 kg 103.4 kg Intake: IV 130 243 52 0.9 @ 10ml/hr 130 110 40 levETIRAcetam IV 500 mg 100 In Sodium Chloride 0.9% 100 ml @ 400 mls/hr IVPB Q12HR [facility] Rx#:[id number] pressure bag 33 12 Tube Feeding 544 374 170 Other 90 150 30 Output: Stool 400 Hemodialysis 2500 Other: Voiding Method Incontinent Incontinent Incontinent ABP, PAP, CO, CI - Last Documented Arterial Blood Pressure 150/58 - Labs CBC & Chem 7: 02/08/21 03:50 02/08/21 03:50 Labs: Abnormal Lab Results - Last 24 Hours (Table) 02/07/21 02/07/21 02/07/21 Range/Units 11:52 18:09 23:27 WBC (3.8-10.6) k/uL RBC (3.80-5.40) m/uL Hgb (11.4-16.0) gm/dL Hct (34.0-46.0) % RDW (11.5-15.5) % Neutrophils # (1.3-7.7) k/uL ABG pO2 (83-108) mmHg ABG HCO3 (21-25) mmol/L ABG Total CO2 (19-24) mmol/L ABG O2 Saturation (94-97) % Sodium (137-145) mmol/L Chloride (98-107) mmol/L BUN (7-17) mg/dL Creatinine (0.52-1.04) mg/dL Glucose (74-99) mg/dL POC Glucose (mg/dL) 375 H 215 H 184 H (75-99) mg/dL Alkaline Phosphatase (38-126) U/L Albumin (3.5-5.0) g/dL 02/08/21 02/08/21 02/08/21 Range/Units 03:50 03:50 05:08 WBC 18.1 H (3.8-10.6) k/uL RBC 3.56 L (3.80-5.40) m/uL Hgb 10.7 L (11.4-16.0) gm/dL Hct 33.4 L (34.0-46.0) % RDW 16.9 H (11.5-15.5) % Neutrophils # 16.1 H (1.3-7.7) k/uL ABG pO2 130 H (83-108) mmHg ABG HCO3 29 H (21-25) mmol/L ABG Total CO2 30 H (19-24) mmol/L ABG O2 Saturation 99.0 H (94-97) % Sodium 134 L (137-145) mmol/L Chloride 96 L (98-107) mmol/L BUN 58 H (7-17) mg/dL Creatinine 4.17 H (0.52-1.04) mg/dL Glucose 185 H (74-99) mg/dL POC Glucose (mg/dL) (75-99) mg/dL Alkaline Phosphatase 160 H (38-126) U/L Albumin 3.0 L (3.5-5.0) g/dL 02/08/21 Range/Units 06:46 WBC (3.8-10.6) k/uL RBC (3.80-5.40) m/uL Hgb (11.4-16.0) gm/dL Hct (34.0-46.0) % RDW (11.5-15.5) % Neutrophils # (1.3-7.7) k/uL ABG pO2 (83-108) mmHg ABG HCO3 (21-25) mmol/L ABG Total CO2 (19-24) mmol/L ABG O2 Saturation (94-97) % Sodium (137-145) mmol/L Chloride (98-107) mmol/L BUN (7-17) mg/dL Creatinine (0.52-1.04) mg/dL Glucose (74-99) mg/dL POC Glucose (mg/dL) 221 H (75-99) mg/dL Alkaline Phosphatase (38-126) U/L Albumin (3.5-5.0) g/dL Assessment and Plan Plan: Assessment: 1. End-stage renal disease maintained on hemodialysis on Sunday schedule. 2. Status post cardiopulmonary arrest. 3. Anoxic brain injury. 4. Hypertension with chronic kidney disease. Stable. 5. Chronic kidney disease mineral bone disease maintained on PhosLo. 6. Diabetes mellitus. 7. COVID-19 positive. On steroids and zinc. Plan: Hemodialysis tomorrow. Overall prognosis guarded. Trach and PEG pending.
[2021-02-08 11:58] LABS: Glucose,Whole Blood 155 mg/dL (75-99)
--- NOTE | 2021-02-08 12:44 | P.PN ---
Subjective Progress Note Date: 02/08/21 CHIEF COMPLAINT: Cardiac arrest HISTORY OF PRESENT ILLNESS: Patient is currently intubated and on mechanical ventilation in the ICU. Surgical service is following regards to possible tracheostomy and PEG tube placement. At this time family has declined trach and PEG. Afebrile WBC 18.1 PHYSICAL EXAM: VITAL SIGNS: Reviewed. GENERAL: Well-developed in no acute distress. HEENT: No sclera icterus. Extraocular movements grossly intact. Moist buccal mucosa. Head is atraumatic, normocephalic. ABDOMEN: Soft. Nondistended. Nontender. NEUROLOGIC: Intubated ASSESSMENT: 1. Cardiac arrest 2. Acute hypoxic respiratory failure 3. Possible anoxic brain injury 4. History of DVT maintained on Eliquis 5. End-stage renal disease 6. History of Covid 19 infection in October 2020 PLAN: -Family has declined tracheostomy and PEG tube placement -Surgical service will remain on standby -Continue supportive care -Continue ICU management Physician Extruder Operator note has been reviewed by physician. Signing provider agrees with the documented findings, assessment, and plan of care. Objective - Vital Signs Vital signs: Vital Signs Temp 98.6 F 02/08/21 12:00 Pulse 54 L 02/08/21 12:00 Resp 14 02/08/21 12:00 BP 154/67 02/08/21 12:00 Pulse Ox 98 02/08/21 12:00 Intake & Output 02/07/21 02/08/21 02/08/21 18:59 06:59 18:59 Intake Total 764 767 376 Output Total 2900 Balance -2136 767 376 Weight 103.6 kg 103.4 kg Intake: IV 130 243 78 0.9 @ 10ml/hr 130 110 60 levETIRAcetam IV 500 mg 100 In Sodium Chloride 0.9% 100 ml @ 400 mls/hr IVPB Q12HR [facility] Rx#:[id number] pressure bag 33 18 Tube Feeding 544 374 238 Other 90 150 60 Output: Stool 400 Hemodialysis 2500 Other: Voiding Method Incontinent Incontinent Incontinent ABP, PAP, CO, CI - Last Documented Arterial Blood Pressure 146/58 - Labs CBC & Chem 7: 02/08/21 03:50 02/08/21 03:50 Labs: Abnormal Lab Results - Last 24 Hours (Table) 02/07/21 02/07/21 02/08/21 Range/Units 18:09 23:27 03:50 WBC 18.1 H (3.8-10.6) k/uL RBC 3.56 L (3.80-5.40) m/uL Hgb 10.7 L (11.4-16.0) gm/dL Hct 33.4 L (34.0-46.0) % RDW 16.9 H (11.5-15.5) % Neutrophils # 16.1 H (1.3-7.7) k/uL ABG pO2 (83-108) mmHg ABG HCO3 (21-25) mmol/L ABG Total CO2 (19-24) mmol/L ABG O2 Saturation (94-97) % Sodium (137-145) mmol/L Chloride (98-107) mmol/L BUN (7-17) mg/dL Creatinine (0.52-1.04) mg/dL Glucose (74-99) mg/dL POC Glucose (mg/dL) 215 H 184 H (75-99) mg/dL Alkaline Phosphatase (38-126) U/L Albumin (3.5-5.0) g/dL 02/08/21 02/08/21 02/08/21 Range/Units 03:50 05:08 06:46 WBC (3.8-10.6) k/uL RBC (3.80-5.40) m/uL Hgb (11.4-16.0) gm/dL Hct (34.0-46.0) % RDW (11.5-15.5) % Neutrophils # (1.3-7.7) k/uL ABG pO2 130 H (83-108) mmHg ABG HCO3 29 H (21-25) mmol/L ABG Total CO2 30 H (19-24) mmol/L ABG O2 Saturation 99.0 H (94-97) % Sodium 134 L (137-145) mmol/L Chloride 96 L (98-107) mmol/L BUN 58 H (7-17) mg/dL Creatinine 4.17 H (0.52-1.04) mg/dL Glucose 185 H (74-99) mg/dL POC Glucose (mg/dL) 221 H (75-99) mg/dL Alkaline Phosphatase 160 H (38-126) U/L Albumin 3.0 L (3.5-5.0) g/dL 02/08/21 Range/Units 11:55 WBC (3.8-10.6) k/uL RBC (3.80-5.40) m/uL Hgb (11.4-16.0) gm/dL Hct (34.0-46.0) % RDW (11.5-15.5) % Neutrophils # (1.3-7.7) k/uL ABG pO2 (83-108) mmHg ABG HCO3 (21-25) mmol/L ABG Total CO2 (19-24) mmol/L ABG O2 Saturation (94-97) % Sodium (137-145) mmol/L Chloride (98-107) mmol/L BUN (7-17) mg/dL Creatinine (0.52-1.04) mg/dL Glucose (74-99) mg/dL POC Glucose (mg/dL) 155 H (75-99) mg/dL Alkaline Phosphatase (38-126) U/L Albumin (3.5-5.0) g/dL
--- NOTE | 2021-02-08 12:51 | P.PN ---
Subjective Patient is a pleasant 65-year-old the female was discharged from my service yesterday after she was treated for encephalopathy related to hypoglycemia. Patient had a cardiorespiratory arrest was pretty functional ambulate and go shopping at the time when she had a cardiorespiratory arrest, CPR was started and patient was later found to have went to her tachycardia, patient returned to sinus rhythm and 25 minutes subsequently was intubated and brought to emergency department. Patient did have history of ventricular tachycardia in the past pa tient was started on amiodarone at that time. Patient does have medical multiple medical problems including end-stage renal disease dialysis dependent chest x-ray showing significant infiltrate in the right lung mostly appears to be volume overload patient does have low-grade fever which can be secondary to cardiorespiratory arrest but patient was empirically started on Zosyn and patient is being admitted to ICU patient is presently intubated with FiO2 of 100% PEEP of 5 patient is breathing over the ventilator patient is on assist- control/volume controlled ventilation, on propofol patient does have conjunctival and corneal reflexes, does have gag reflex. No significant electrolyte abnormalities were appreciated. 01/29/2021 Patient is on ventilator support patient the doesn't have any significant response in after discontinue additional of sedation for about 4 hours. Patient was evaluated by multiple consultants including neurology patient had an EEG to assess for the brain function because of significant anoxic brain injury, patient has significant background slowing slowing encephalopathy. Patient still has brainstem reflexes that were described above. Patient had an echo Wh ich showed normal ejection fraction and grade 1 diastolic dysfunction. 01/30/2021 Patient was started back on propofol as patient is not tolerating ventilator patient remains on ventilatory support . Patient will undergo he hemodialysis tomorrow. Patient is on cisatracurium as well. Patient is undergoing repeat EEG to assess the brain function patient still has ranged stem reflexes at this time. 01/31/2021 Patient remains in intensity and neck done ventilatory support. Patient had a repeat EEG which she appeared to be bit better. Patient does have corneal reflex but doesn't have any conjunctival reflux, patient does have cough reflex biting on the ventilator. Patient remains on the propofol drip and patient neurological assessment it to be done off sedation although patient doesn't appear to be tolerating off sedation. Patient had dialysis today. 02/01/2021 Patient's sedation is being turned off at this time patient will be evaluated or sedation by neurology. Patient has sluggish are absent pupillary reflexes patient is still barely breathing over the ventilator at this time. Chest x-ray showing left lower lobe infiltrate today patient is on the NG tube feedings patient can use to be on Keppra prophylactically there is focal slowing on the EEG without any epileptiform discharges 02/02/2021 Patient is on sedation no symptom response patient has a corneal reflex but no conjunctival reflux patient does have some gag reflex as well although not responding. Patient was evaluated by neurology patient apparently had significant edema on the CT of the head that was done on january. Aspirin neurology chance of reasonable recovery is low and discussed with neurology and probably call family to discuss overall goals of care including comfort care terminal wean. 02/03/2021 Patient doesn't have any significant improvement in spite of hours of for holding off sedation. Doesn't appear to have significant improvement. Patient clinical condition and overall neurological status is bit worse. Discussed with the patient's family wants to continue the care at this time. 02/04/2021 Patient is off sedation for more than 30 hours without any significant improvem ent in her neurological status. Chest x-ray showing pulmonary edema patient will undergo hemodialysis today patient is unclear reflex her blood pressure. Patient is scheduled for tracheostomy and PEG tube placement on Sunday02/05/2021 patient overall neurological status and overall clinical condition remains the same patient is still not arousable at this time. 02/06/2021 patient is off sedation for about 2-3 days. Patient is presently on Tobrex remains intubated is undergoing hemodialysis as scheduled patient is on cleveprex for blood pressure. 02/07/2021 patient remains on ventilator support her, there is no neurological recovery patient had a repeat CT is showing attenuation in bilateral basal ganglia. Neurologist or had a lengthy discussion with the patient's family regarding neurological recovery which is expected to be poor. will undergo hemodialysis today ration blood sugars are significantly high increasing the dose of Levemir. Patient the need an extra 34 units of sliding scale. Patient blood sugars are high because of Decadron.w 02/08/2021 Patient remains on ventilator support patient is off sedation since 02/03/2021. Patient doesn't have any significant reasonable neurological recovery except for some brainstem reflexes patient does open eyes without any purposeful movements. Patient will undergo hemodialysis again tomorrow. Did discuss her situation in casework manager meeting. I believe it's appropriate to discuss her case in ethics committee as the care we are providing to the patient is futile care Review of systems: Unable to obtain as patient is intubated All inpatient medications were reviewed and appropriate changes in these medications as dictated in the interval history and assessment and plan. Objective - Vital Signs Vital signs: Vital Signs Temp 98.6 F 02/08/21 12:00 Pulse 54 L 02/08/21 12:00 Resp 14 02/08/21 12:00 BP 154/67 02/08/21 12:00 Pulse Ox 98 02/08/21 12:00 Intake & Output 02/07/21 02/08/21 02/08/21 18:59 06:59 18:59 Intake Total 764 767 376 Output Total 2900 Balance -2136 767 376 Weight 103.6 kg 103.4 kg Intake: IV 130 243 78 0.9 @ 10ml/hr 130 110 60 levETIRAcetam IV 500 mg 100 In Sodium Chloride 0.9% 100 ml @ 400 mls/hr IVPB Q12HR [facility] Rx#:[id number] pressure bag 33 18 Tube Feeding 544 374 238 Other 90 150 60 Output: Stool 400 Hemodialysis 2500 Other: Voiding Method Incontinent Incontinent Incontinent ABP, PAP, CO, CI - Last Documented Arterial Blood Pressure 146/58 - Exam PHYSICAL EXAMINATION: GENERAL: Patient is intubated sedated, does have an NG tube with some bloody drainage from the NG tube. Patient has a central line and arterial line HEENT: Pupils are round and and constricted at this time because of propofol. EOMI. No scleral icterus. No conjunctival pallor. Normocephalic, atraumatic. No pharyngeal erythema. No thyromegaly. CARDIOVASCULAR: S1 and S2 present. No murmurs, rubs, or gallops. PULMONARY: Chest is clear to auscultation, no wheezing or crackles. ABDOMEN: Soft, nontender, nondistended, normoactive bowel sounds. No palpable organomegaly. MUSCULOSKELETAL: No joint swelling or deformity. EXTREMITIES: No cyanosis, clubbing, bilateral pedal edema which is chronic NEUROLOGICAL: Intubated sedated but does have brainstem reflexes, patient doesn't have cough reflex is breathing over the ventilator, does have gag reflex. SKIN: Stage I and 2 ulcers which doesn't appear to be infected Note: Because of COVID 19 isolation, some of the history and physical exam findings are indirect and obtained from nursing staff, and other physician exami nations to avoid unnecessary contact with the patient. - Labs CBC & Chem 7: 02/08/21 03:50 02/08/21 03:50 Labs: Abnormal Lab Results - Last 24 Hours (Table) 02/07/21 02/07/21 02/08/21 Range/Units 18:09 23:27 03:50 WBC 18.1 H (3.8-10.6) k/uL RBC 3.56 L (3.80-5.40) m/uL Hgb 10.7 L (11.4-16.0) gm/dL Hct 33.4 L (34.0-46.0) % RDW 16.9 H (11.5-15.5) % Neutrophils # 16.1 H (1.3-7.7) k/uL ABG pO2 (83-108) mmHg ABG HCO3 (21-25) mmol/L ABG Total CO2 (19-24) mmol/L ABG O2 Saturation (94-97) % Sodium (137-145) mmol/L Chloride (98-107) mmol/L BUN (7-17) mg/dL Creatinine (0.52-1.04) mg/dL Glucose (74-99) mg/dL POC Glucose (mg/dL) 215 H 184 H (75-99) mg/dL Alkaline Phosphatase (38-126) U/L Albumin (3.5-5.0) g/dL 02/08/21 02/08/21 02/08/21 Range/Units 03:50 05:08 06:46 WBC (3.8-10.6) k/uL RBC (3.80-5.40) m/uL Hgb (11.4-16.0) gm/dL Hct (34.0-46.0) % RDW (11.5-15.5) % Neutrophils # (1.3-7.7) k/uL ABG pO2 130 H (83-108) mmHg ABG HCO3 29 H (21-25) mmol/L ABG Total CO2 30 H (19-24) mmol/L ABG O2 Saturation 99.0 H (94-97) % Sodium 134 L (137-145) mmol/L Chloride 96 L (98-107) mmol/L BUN 58 H (7-17) mg/dL Creatinine 4.17 H (0.52-1.04) mg/dL Glucose 185 H (74-99) mg/dL POC Glucose (mg/dL) 221 H (75-99) mg/dL Alkaline Phosphatase 160 H (38-126) U/L Albumin 3.0 L (3.5-5.0) g/dL 02/08/21 Range/Units 11:55 WBC (3.8-10.6) k/uL RBC (3.80-5.40) m/uL Hgb (11.4-16.0) gm/dL Hct (34.0-46.0) % RDW (11.5-15.5) % Neutrophils # (1.3-7.7) k/uL ABG pO2 (83-108) mmHg ABG HCO3 (21-25) mmol/L ABG Total CO2 (19-24) mmol/L ABG O2 Saturation (94-97) % Sodium (137-145) mmol/L Chloride (98-107) mmol/L BUN (7-17) mg/dL Creatinine (0.52-1.04) mg/dL Glucose (74-99) mg/dL POC Glucose (mg/dL) 155 H (75-99) mg/dL Alkaline Phosphatase (38-126) U/L Albumin (3.5-5.0) g/dL Assessment and Plan Plan: -Cardiorespiratory arrest leading to respiratory failure: Secondary to ventricular tachycardia patient was evaluated by cardiology echocardiogram as mentioned above . Repeat EEG showed some improvement in background slowing. She and had a repeat EEG on 02/06/2021 which continues to show diffuse slowing significant anoxic brain injury. Patient is off sedation since no significant improvement in mental status offsedation. Patient has significant anoxic brain injury over all prognosis is poor, possibility of reasonable neurological recovery is low same thing was discussed with the family . For now family wants to continue the care. Patient's family declined a tracheostomy and PEG tube placement at this time. Prolonged intubation can lead to more infections. -Acute hypoxic respiratory failure leading to anoxic brain injury. -Volume overload: Secondary to end-stage renal disease nephrology evaluated the patient. Patient is undergoing hemodialysis as scheduled -Fever on admission: Last fever was 02/06/2021 Most probably secondary to cardiorespiratory arrest blood cultures so far are negative except for sputum cultures showing gram-positive bacilli and cocci which is usually oral cavity bacteria, patient is presently not on any antibiotics at this time -Recent covid 19 infection and month of October, patient had a repeat Covid 19 test that was positive again this is probably not a new infection but residual inactive RNA fragments. -End-stage renal disease, dialysis dependent -Type 2 diabetes mellitus : Blood sugars are better controlled today with increasing long-acting insulin will continue the same dose is as today History of DVT patient had a paratracheal hematoma but from attempted central line placement because of which I believe Eliquis is being held at this time. -Hypertension -Diabetic peripheral neuropathy -bilateral lower extremity ulcers doesn't appear to have cellulitis but does have chronic lymphedema Patient prognosis is extremely poor.
[2021-02-08 14:31] LABS: Glucose,Whole Blood 182 mg/dL (75-99)
[2021-02-08 17:22] LABS: Glucose,Whole Blood 165 mg/dL (75-99)
[2021-02-08] MEDS: amLODIPine 10 MG TAB PO SCH (20:51)
[2021-02-08 22:36] LABS: LD Isoenzymes 1 24 % (19-38); LD Isoenzymes 2 38 % (30-43); LD Isoenzymes 3 17 % (16-26); LD Isoenzymes 4 8 % (3-12); LD Isoenzymes 5 13 % (3-14); Lactacte Dehydrogenase(LD) ISO 211 U/L (120-250)
[2021-02-08 22:36] LABS: LD Isoenzymes 1 31 % (19-38); LD Isoenzymes 2 36 % (30-43); LD Isoenzymes 3 15 % (16-26); LD Isoenzymes 4 6 % (3-12); LD Isoenzymes 5 12 % (3-14); Lactacte Dehydrogenase(LD) ISO 197 U/L (120-250)
[2021-02-09 00:34] LABS: Glucose,Whole Blood 182 mg/dL (75-99)
[2021-02-09] MEDS: INSULIN ASPART (NovoLOG) 100 UNIT/ML VIAL SQ SCH ×5 (00:44→23:34)
[2021-02-09 04:28] LABS: Anisocytosis Slight; HCT 35.5 % (34.0-46.0); HGB 10.7 gm/dL (11.4-16.0); Hypochromasia Slight; MCH 29.1 pg (25.0-35.0); MCHC 30.1 g/dL (31.0-37.0); Macrocytosis Slight; Mean Platelet Volume 8.1; Platelet Count 497 k/uL (150-450); RBC 3.66 m/uL (3.80-5.40); RDW 17.3 % (11.5-15.5); WBC 21.6 k/uL (3.8-10.6)
[2021-02-09 04:40] LABS: Calcium 9.3 mg/dL (8.4-10.2); Potassium 4.2 mmol/L (3.5-5.1)
[2021-02-09 05:27] LABS: ABG Base Excess 2.8 mmol/L; ABG HCO3 27 mmol/L (21-25); ABG Oxygen Saturation 98.9 % (94-97); ABG PCO2 39 mmHg (35-45); ABG PH 7.45 (7.35-7.45); ABG PO2 117 mmHg (83-108); ABG TCO2 28 mmol/L (19-24); Allen Test Performed? Yes
[2021-02-09 06:03] LABS: Glucose,Whole Blood 199 mg/dL (75-99)
[2021-02-09] MEDS: CALCIUM ACETATE 667 MG TAB PO SCH ×2 (06:16→15:07)
[2021-02-09] MEDS: INSULIN DETEMIR (LEVEMIR) 100 UNIT/ML SYR SQ SCH (06:16)
[2021-02-09] MEDS: DEXAMETHASONE SOD PHOSPHATE 10 MG/ML 1 ML VIAL IV SCH (08:38)
[2021-02-09] MEDS: CHLORHEXIDINE GLUCONATE 15 ML CUP MUCOUS MEM SCH ×2 (08:38→20:22)
[2021-02-09] MEDS: PANTOPRAZOLE 40 MG/10 ML VIAL IVP SCH ×2 (08:38→20:23)
[2021-02-09] MEDS: hydrALAZINE HCL 50 MG TAB PO SCH ×3 (08:39→20:23)
[2021-02-09] MEDS: ZINC SULFATE 220 MG CAP PO SCH ×2 (08:39→20:23)
[2021-02-09] MEDS: ASPIRIN 81 MG PO SCH (08:39)
[2021-02-09] MEDS: levETIRAcetam IV 500 MG in SODIUM CHLORIDE 0.9% 100 ML IVPB SCH ×2 (08:39→20:22)
--- NOTE | 2021-02-09 09:37 | P.PN ---
Subjective Progress Note Date: 02/09/21 On 02/07/2021 on seeing the patient for a follow-up. The patient is post cardiac arrest and hypoxic encephalopathy. The patient remains intubated on a mechanical ventilator. The patient is currently off sedation and neurologic function of being monitored very closely. The patient has been off sedation since 02/03/2021. Currently on assist control mode at the rate of 14 with a tidal volume of 350 and FiO2 of 30% with a PEEP of 5. The patient's chest x-ray is showing infiltrates bilaterally more significant in the left lower lobe. Blood gases is pending for now. Dr Fernandez had a discussion was done with the family earlier prior to l and the plan was to proceed with tracheostomy tube insertion for long-term need of ventilatory support. The patient meanwhile is receiving enteral feeding for nutritional support and the patient is currently on Nepro 34 mL an hour per goal. The patient is requiring dialysis intermittently. That the patient has an incisional disease and she has been on dialysis on outpatient basis 3 times a week. The patient has nephrology is on the case. The Cleviprex was discontinued and the patient's blood pressure is being monitored. Noted the patient has multiple medical problems and comorbidities. The patient has end-stage renal disease. The patient undergoes hemodialysis. The patient also has coronary artery disease, diabetes mellitus type 2 and the patient's had V. tach and cardiac arrest. The family initiated a CPR according to the history as the patient was found to be unresponsive. The patient got defibrillated and CPR was continued by EMS. The downtime was estimated to be at least 20 minutes. The patient has been in intensive care unit since 01/30/2021. He is post V. fib arrest. He is also on Norvasc 10 mg a day for blood pressure control. He is on Keppra for any seizure activity, prophylaxis. The patient is on aspirin. The patient is off sedation. The patient is on Decadron 6 mg IV scheduled. Other comorbidities include diabetic peripheral neuropathy, chronic lower extremity ulcers and onset cellulitis and the patient has chronic lymphedema. I further can't understand the patient's family is interested in transferring her to another facility. Meanwhile, the patient's blood work today showed a white cell count 15.4 with a hemoglobin of 9.7 and the platelet count of 371. Creatinine is 86 with a creatinine of 6.1 and sodium level of 132. The chest x-ray from today is essentially clear. The patient's ET tube is in a good location. The patient has a G-tube in place. No significant pulmonary infiltration. The patient is tolerating her enteral feeding for nutritional support. Her last session of hemodialysis was on Sunday which is 3 days ago. No seizure activity has been noted. The patient remains on Decadron 6 mg IV every 24 hours. 02/08/2021, the patient remains off sedation. There is a case of hypoxic encephalopathy and the patient has not shown any signs of neurologic recovery. No seizure activity has been noted. I discussed the case with neurology and Dr. Galvez has also spoken to the family in this regard. The patient remains off sedation. Neurologic functions are quite impaired. She does have a weak cough and gag. She is completely unresponsive to any verbal stimulation. He does not withdraw to painful stimulation. She is currently on assist control mode at the rate of 14 with a tidal volume of 350 and FiO2 of 30% with a PEEP of 5. Yesterday, I give the patient a breathing trial with a pressure support of 10 and PEEP of 5. She was able to tolerate that for a total of 10 hours and ultimately she had to be placed back on assist control mode of ventilation yesterday. The patient underwent also dialysis yesterday. Nephrology remains on the case. The patient is still off Cleviprex Blood pressure is currently at 157/64. The patient is also on Norvasc 10 mg by mouth daily in addition to hydralazine 100 mg by mouth 3 times a day regarding blood pressure control. Cardiac rhythm is sinus. The blood gases from today showed a pH of 7.44 with a pCO2 of 42 and pO2 of 130 and this was done on assist control mode of ventilation. Chest x-ray still pending for now. Meanwhile, the rest of the blood work include a CBC shows a white cell count of 18 with a hemoglobin of 10.7 and the platelets of 436. BUN is at 58 with a creatinine of 4.1 and the patient's potassium level is at 3.8. The patient is receiving enteral feeding for nutritional support and the patient is currently on Nepro running at the rate of 34 mL an hour. She remains on Decadron 6 mg IV every 24 hours been no seizure activity has been noted. No other significant events overnight. She remains on [facility]. Neurologist on the case. 02/09/2021, neurologically unchanged and the patient is unresponsive. She has a cough and a gag on today's evaluation. She is also having some respiratory se cretions and she requires suctioning every shift. Meanwhile, the patient is currently on a pressure support mode of ventilation with a pressure support of 10 and a PEEP of 5. She was able to tolerate this setting for the past 24 hours and her current FiO2 is at 30%. She is hemodynamically stable. She is undergoing hemodialysis today. No neurological recovery. Discussed the case with neurology. She is neurologically impaired and she has anoxic encephalopathy. No seizure activity has been noted and the patient remains on Keppra. She is receiving enteral feeding for nutritional support through her PEG tube. She has adequate blood pressure control and the patient is hemodynamically stable for now. Cardiac rhythm is sinus for now. Objective - Vital Signs Vital signs: Vital Signs Temp 98.2 F 02/09/21 04:00 Pulse 74 02/09/21 07:00 Resp 18 02/09/21 07:00 BP 156/69 02/09/21 07:00 Pulse Ox 97 02/09/21 08:00 Intake & Output 02/08/21 02/09/21 02/09/21 18:59 06:59 18:59 Intake Total 756 714 168 Output Total 200 Balance 556 714 168 Weight 105.1 kg Intake: IV 156 156 26 0.9 @ 10ml/hr 120 120 20 pressure bag 36 36 6 Tube Feeding 510 408 102 Other 90 150 40 Output: Stool 200 Other: Voiding Method Incontinent Incontinent Incontinent ABP, PAP, CO, CI - Last Documented Arterial Blood Pressure 176/60 - Exam Currently intubated, and mechanically ventilated. Currently on no sedation. The patient remains completely unresponsive. Orotracheal and orogastric tube are both in place and the patient is an volume cycled mechanical ventilation. HEENT examination is grossly unremarkable. Neck supple. Full range of motion. No adenopathy thyromegaly or neck vein distention. Cardiovascular examination reveals regular rhythm rate. S1-S2 normal. No S3 or S4. No discernible murmur noted. Heart sounds are distant. Lungs reveal diffuse bilateral rhonchi and crackles. There are no wheezes. Breath sounds are equal bilaterally. Abdomen soft bowel sounds are heard. No masses or tenderness. Extremities are intact. No cyanosis or clubbing. There is bilateral lower extremity edema. Skin is without rash or lesion. Neurologic examination is unchanged. Off of sedation, she opens her eyes, but there is no purposeful movements. Pupils are equal and symmetrical. The patient has a preferential gaze to the left. No nystagmus. No clonus. Does not withdraw to any painful stimulation. Reflexes are diminished in all 4 extremities. No facial asymmetry. - Labs CBC & Chem 7: 02/09/21 03:55 02/09/21 03:55 Labs: Abnormal Lab Results - Last 24 Hours (Table) 02/06/21 02/08/21 02/08/21 Range/Units 04:55 11:55 14:20 WBC (3.8-10.6) k/uL RBC (3.80-5.40) m/uL Hgb (11.4-16.0) gm/dL MCHC (31.0-37.0) g/dL RDW (11.5-15.5) % Plt Count (150-450) k/uL ABG pO2 (83-108) mmHg ABG HCO3 (21-25) mmol/L ABG Total CO2 (19-24) mmol/L ABG O2 Saturation (94-97) % Sodium (137-145) mmol/L Chloride (98-107) mmol/L BUN (7-17) mg/dL Creatinine (0.52-1.04) mg/dL Glucose (74-99) mg/dL POC Glucose (mg/dL) 155 H 182 H (75-99) mg/dL LD 3 15 L (16-26) % 02/08/21 02/09/21 02/09/21 Range/Units 17:20 00:32 03:55 WBC 21.6 H (3.8-10.6) k/uL RBC 3.66 L (3.80-5.40) m/uL Hgb 10.7 L (11.4-16.0) gm/dL MCHC 30.1 L (31.0-37.0) g/dL RDW 17.3 H (11.5-15.5) % Plt Count 497 H (150-450) k/uL ABG pO2 (83-108) mmHg ABG HCO3 (21-25) mmol/L ABG Total CO2 (19-24) mmol/L ABG O2 Saturation (94-97) % Sodium (137-145) mmol/L Chloride (98-107) mmol/L BUN (7-17) mg/dL Creatinine (0.52-1.04) mg/dL Glucose (74-99) mg/dL POC Glucose (mg/dL) 165 H 182 H (75-99) mg/dL LD 3 (16-26) % 02/09/21 02/09/21 02/09/21 Range/Units 03:55 05:21 06:02 WBC (3.8-10.6) k/uL RBC (3.80-5.40) m/uL Hgb (11.4-16.0) gm/dL MCHC (31.0-37.0) g/dL RDW (11.5-15.5) % Plt Count (150-450) k/uL ABG pO2 117 H (83-108) mmHg ABG HCO3 27 H (21-25) mmol/L ABG Total CO2 28 H (19-24) mmol/L ABG O2 Saturation 98.9 H (94-97) % Sodium 132 L (137-145) mmol/L Chloride 94 L (98-107) mmol/L BUN 78 H (7-17) mg/dL Creatinine 5.00 H (0.52-1.04) mg/dL Glucose 184 H (74-99) mg/dL POC Glucose (mg/dL) 199 H (75-99) mg/dL LD 3 (16-26) % Assessment and Plan Plan: 1 Cardiac arrest most likely secondary to cardiac arrhythmia initial rhythm was ventricular fibrillation upon EMS arrival. The patient came into the hospital on 01/30/2021 patient is in the intensive care unit since. The patient has obvious signs of anoxic encephalopathy. Estimated down time of the time of the cardiac arrest was around 20 minutes. The patient currently is hemodynamically stable on no pressors 2 Acute hypoxic respiratory failure secondary to above, with significant anoxic brain injury. Patient is able to tolerate a pressure support of 10 and a PEEP of 5 and FiO2 of 30% and she was on a pressure support mode for the past 24 hours. Chest x-ray findings are essentially unchanged and stable. She is not being extubated due to concern of her ability to secure her airways. She does have a cough and gag. Neurologically she is appears that she has anoxic encephalopathy. 3 Bilateral interstitial edema most likely secondary to end-stage renal disease and suspect acute systolic congestive heart failure, and the follow-up chest x- ray from today is essentially stable without any acute major abnormalities. 4 Anoxic brain injury and metabolic encephalopathy secondary to cardiac arrest. The patient is currently off sedation and the patient is not showing any significant neurologic recovery. 5 Type 2 diabetes. The patient is currently on Levemir insulin at 35 units along with vascular coverage. 6 Benign essential hypertension. 7 end stage renal disease on hemodialysis. The patient is undergoing episodic dialysis amount currently undergoing hemodialysis this morning 8 History of carotid artery disease. 9 History of DVT 10 History of diabetic peripheral neuropathy. 11 History of cardiac arrhythmia requiring cardiac ablation. 12 Chronic lymphedema and cellulitis of both lower extremities. 13 History of irritable bowel syndrome. 14 History of covid 19 infection in October of 2020, and the patient also tested positive on 01/28/2021. 15 Possible right paratracheal hematoma from attempted central line placement, stable hemoglobin, chest x-ray findings and is also stable. Plan: Continue ventilator support, no active pulmonary issues keep the patient on pr essure support mode of ventilation. Extubation may be checked. The patient may decompensate if she is unable to cough and secure airways patient does have some limited secretions. Chest x-rays stable for now. No sedation Family is declined tracheostomy tube insertion and PEG tube insertion She is currently off [employer] Neurologist on the case regarding anoxic encephalopathy , had several discussion s with neurology. No obvious neurologic recovery the patient's long-term prognosis poor Continue Keppra Started patient on Lantus 35 units along with NovoLog sliding scale coverage and monitor blood sugar control The prognosis extremely poor Continue enteral feeding for nutritional support Overall prognosis extremely poor baseline above-mentioned comorbidities. We'll continue to follow. Is a critically care evaluation was done more than 30 minutes. Time with Patient: Greater than 30
--- NOTE | 2021-02-09 10:12 | P.PN ---
Subjective Patient is seen in follow-up for end-stage renal disease. She is maintained on hemodialysis on Sunday schedule. Intubated. On 30% FiO2. Severe anoxic brain injury. Remains off sedation. Tolerating dialysis well. Vital signs are stable. Exam discussed with the nurse. Objective - Vital Signs Vital signs: Vital Signs Temp 98.2 F 02/09/21 04:00 Pulse 74 02/09/21 07:00 Resp 18 02/09/21 07:00 BP 156/69 02/09/21 07:00 Pulse Ox 97 02/09/21 08:00 Intake & Output 02/08/21 02/09/21 02/09/21 18:59 06:59 18:59 Intake Total 756 714 168 Output Total 200 Balance 556 714 168 Weight 105.1 kg Intake: IV 156 156 26 0.9 @ 10ml/hr 120 120 20 pressure bag 36 36 6 Tube Feeding 510 408 102 Other 90 150 40 Output: Stool 200 Other: Voiding Method Incontinent Incontinent Incontinent ABP, PAP, CO, CI - Last Documented Arterial Blood Pressure 176/60 - Labs CBC & Chem 7: 02/09/21 03:55 02/09/21 03:55 Labs: Abnormal Lab Results - Last 24 Hours (Table) 02/06/21 02/08/21 02/08/21 Range/Units 04:55 11:55 14:20 WBC (3.8-10.6) k/uL RBC (3.80-5.40) m/uL Hgb (11.4-16.0) gm/dL MCHC (31.0-37.0) g/dL RDW (11.5-15.5) % Plt Count (150-450) k/uL ABG pO2 (83-108) mmHg ABG HCO3 (21-25) mmol/L ABG Total CO2 (19-24) mmol/L ABG O2 Saturation (94-97) % Sodium (137-145) mmol/L Chloride (98-107) mmol/L BUN (7-17) mg/dL Creatinine (0.52-1.04) mg/dL Glucose (74-99) mg/dL POC Glucose (mg/dL) 155 H 182 H (75-99) mg/dL LD 3 15 L (16-26) % 02/08/21 02/09/2102/09/21 Range/Units 17:20 00:32 03:55 WBC 21.6 H (3.8-10.6) k/uL RBC 3.66 L (3.80-5.40) m/uL Hgb 10.7 L (11.4-16.0) gm/dL MCHC 30.1 L (31.0-37.0) g/dL RDW 17.3 H (11.5-15.5) % Plt Count 497 H (150-450) k/uL ABG pO2 (83-108) mmHg ABG HCO3 (21-25) mmol/L ABG Total CO2 (19-24) mmol/L ABG O2 Saturation (94-97) % Sodium (137-145) mmol/L Chloride (98-107) mmol/L BUN (7-17) mg/dL Creatinine (0.52-1.04) mg/dL Glucose (74-99) mg/dL POC Glucose (mg/dL) 165 H 182 H (75-99) mg/dL LD 3 (16-26) % 02/09/21 02/09/21 02/09/21 Range/Units 03:55 05:21 06:02 WBC (3.8-10.6) k/uL RBC (3.80-5.40) m/uL Hgb (11.4-16.0) gm/dL MCHC (31.0-37.0) g/dL RDW (11.5-15.5) % Plt Count (150-450) k/uL ABG pO2 117 H (83-108) mmHg ABG HCO3 27 H (21-25) mmol/L ABG Total CO2 28 H (19-24) mmol/L ABG O2 Saturation 98.9 H (94-97) % Sodium 132 L (137-145) mmol/L Chloride 94 L (98-107) mmol/L BUN 78 H (7-17) mg/dL Creatinine 5.00 H (0.52-1.04) mg/dL Glucose 184 H (74-99) mg/dL POC Glucose (mg/dL) 199 H (75-99) mg/dL LD 3 (16-26) % Assessment and Plan Plan: Assessment: 1. End-stage renal disease maintained on hemodialysis on Sunday schedule. 2. Status post cardiopulmonary arrest. 3. Anoxic brain injury. 4. Hypertension with chronic kidney disease. Exacerbated by steroids. 5. Chronic kidney disease mineral bone disease maintained on PhosLo. 6. Diabetes mellitus. 7. COVID-19 positive. On steroids and zinc. Plan: Currently seen while undergoing hemodialysis. Next treatment on Sunday. Overall prognosis guarded. Family refused tracheostomy and PEG tube placement. Possible extubation today. Add hydralazine 10 mg every 4 hours as needed for systolic blood pressure greater than 160.
--- NOTE | 2021-02-09 11:24 | P.PN ---
Subjective Progress Note Date: 02/09/21 CHIEF COMPLAINT: Cardiac arrest HISTORY OF PRESENT ILLNESS: Patient is currently intubated and on mechanical ventilation in the ICU. Surgical service is following regards to possible tracheostomy and PEG tube placement. At this time family has declined trach and PEG. Afebrile WBC 21.6 They're trying to extubate patient today. PHYSICAL EXAM: VITAL SIGNS: Reviewed. GENERAL: Well-developed in no acute distress. HEENT: No sclera icterus. Extraocular movements grossly intact. Moist buccal mucosa. Head is atraumatic, normocephalic. ABDOMEN: Soft. Nondistended. Nontender. NEUROLOGIC: Intubated ASSESSMENT: 1. Cardiac arrest 2. Acute hypoxic respiratory failure 3. Possible anoxic brain injury 4. History of DVT maintained on Eliquis 5. End-stage renal disease 6. History of Covid 19 infection in October 2020 PLAN: -Family has declined tracheostomy and PEG tube placement -Surgical service will remain on standby -Continue supportive care -Continue ICU management Physician Chair Mechanic note has been reviewed by physician. Signing provider agrees with the documented findings, assessment, and plan of care. Objective - Vital Signs Vital signs: Vital Signs Temp 97.4 F L 02/09/21 08:00 Pulse 73 02/09/21 10:00 Resp 20 02/09/21 10:00 BP 156/69 02/09/21 07:00 Pulse Ox 96 02/09/21 10:00 Intake & Output 02/08/21 02/09/21 02/09/21 18:59 06:59 18:59 Intake Total 756 714 168 Output Total 200 Balance 556 714 168 Weight 105.1 kg Intake: IV 156 156 26 0.9 @ 10ml/hr 120 120 20 pressure bag 36 36 6 Tube Feeding 510 408 102 Other 90 150 40 Output: Stool 200 Other: Voiding Method Incontinent Incontinent Incontinent ABP, PAP, CO, CI - Last Documented Arterial Blood Pressure 124/48 - Labs CBC & Chem 7: 02/09/21 03:55 02/09/21 03:55 Labs: Abnormal Lab Results - Last 24 Hours (Table) 02/06/21 02/08/21 02/08/21 Range/Units 04:55 11:55 14:20 WBC (3.8-10.6) k/uL RBC (3.80-5.40) m/uL Hgb (11.4-16.0) gm/dL MCHC (31.0-37.0) g/dL RDW (11.5-15.5) % Plt Count (150-450) k/uL ABG pO2 (83-108) mmHg ABG HCO3 (21-25) mmol/L ABG Total CO2 (19-24) mmol/L ABG O2 Saturation (94-97) % Sodium (137-145) mmol/L Chloride (98-107) mmol/L BUN (7-17) mg/dL Creatinine (0.52-1.04) mg/dL Glucose (74-99) mg/dL POC Glucose (mg/dL) 155 H 182 H (75-99) mg/dL LD 3 15 L (16-26) % 02/08/21 02/09/21 02/09/21 Range/Units 17:20 00:32 03:55 WBC 21.6 H (3.8-10.6) k/uL RBC 3.66 L (3.80-5.40) m/uL Hgb 10.7 L (11.4-16.0) gm/dL MCHC 30.1 L (31.0-37.0) g/dL RDW 17.3 H (11.5-15.5) % Plt Count 497 H (150-450) k/uL ABG pO2 (83-108) mmHg ABG HCO3 (21-25) mmol/L ABG Total CO2 (19-24) mmol/L ABG O2 Saturation (94-97) % Sodium (137-145) mmol/L Chloride (98-107) mmol/L BUN (7-17) mg/dL Creatinine (0.52-1.04) mg/dL Glucose (74-99) mg/dL POC Glucose (mg/dL) 165 H 182 H (75-99) mg/dL LD 3 (16-26) % 02/09/21 02/09/21 02/09/21 Range/Units 03:55 05:21 06:02 WBC (3.8-10.6) k/uL RBC (3.80-5.40) m/uL Hgb (11.4-16.0) gm/dL MCHC (31.0-37.0) g/dL RDW (11.5-15.5) % Plt Count (150-450) k/uL ABG pO2 117 H (83-108) mmHg ABG HCO3 27 H (21-25) mmol/L ABG Total CO2 28 H (19-24) mmol/L ABG O2 Saturation 98.9 H (94-97) % Sodium 132 L (137-145) mmol/L Chloride 94 L (98-107) mmol/L BUN 78 H (7-17) mg/dL Creatinine 5.00 H (0.52-1.04) mg/dL Glucose 184 H (74-99) mg/dL POC Glucose (mg/dL) 199 H (75-99) mg/dL LD 3 (16-26) %
[2021-02-09] MEDS: ALBUTEROL HFA INHALER INHALATION PRN ×2 (11:34→15:34)
--- NOTE | 2021-02-09 11:45 | P.PN ---
Subjective Progress Note Date: 02/09/21 I seen the patient at bedside and per the patient nurse he stated the patient condition has not changed and has been the same. She continues to be off sedation since 02/03/2021. She comes currently on spontaneous breathing. She is also currently getting dialysis. Objective - Vital Signs Vital signs: Vital Signs Temp 97.4 F L 02/09/21 08:00 Pulse 73 02/09/21 10:00 Resp 20 02/09/21 10:00 BP 156/69 02/09/21 07:00 Pulse Ox 96 02/09/21 10:00 Intake & Output 02/08/21 02/09/21 02/09/21 18:59 06:59 18:59 Intake Total 756 714 168 Output Total 200 Balance 556 714 168 Weight 105.1 kg Intake: IV 156 156 26 0.9 @ 10ml/hr 120 120 20 pressure bag 36 36 6 Tube Feeding 510 408 102 Other 90 150 40 Output: Stool 200 Other: Voiding Method Incontinent Incontinent Incontinent ABP, PAP, CO, CI - Last Documented Arterial Blood Pressure 124/48 - Exam GENERAL: The patient is lying in bed and is not in acute distress. Not on any sedation. LUNG: Intubated on sponatenous breathing. Not labored breathing. NEUROLOGICAL: Limited because of her condition. Not on any sedation Higher mental function: GCS 6 (E3,VT1,M2). Patient is non responisve and does verbalized or attempt to verbalize and does not follow commands. Cranial nerves: Would open eyes to painful stimuli. The pupils are round, equal (3mm bilaterally) and reactive to light. Positive corneal reflex bilaterally. +ve oculocephalic reflex. No facial weakness. Positive cough and gag reflex. On sponatenous breathing Motor: No movement noted sponateously or to painful stimuli. Decrease tone in bilateral upper extremities. Has lymphedema of bilateral lower extremities. To painful stimuli of the right upper extremity she has extensor posturing otherwise no movement in any of extremeties. Has no spontaneous movement. Cerebellum: Could not assess. Sensation: Could not assess. Reflexes (right/left): 1+ uppers. 0 in lowers and limited because of lymphe diamond. Plantars are mute bilaterally. - Labs CBC & Chem 7: 02/09/21 03:55 02/09/21 03:55 Labs: Abnormal Lab Results - Last 24 Hours (Table) 02/06/21 02/08/21 02/08/21 Range/Units 04:55 11:55 14:20 WBC (3.8-10.6) k/uL RBC (3.80-5.40) m/uL Hgb (11.4-16.0) gm/dL MCHC (31.0-37.0) g/dL RDW (11.5-15.5) % Plt Count (150-450) k/uL ABG pO2 (83-108) mmHg ABG HCO3 (21-25) mmol/L ABG Total CO2 (19-24) mmol/L ABG O2 Saturation (94-97) % Sodium (137-145) mmol/L Chloride (98-107) mmol/L BUN (7-17) mg/dL Creatinine (0.52-1.04) mg/dL Glucose (74-99) mg/dL POC Glucose (mg/dL) 155 H 182 H (75-99) mg/dL LD 3 15 L (16-26) % 02/08/21 02/09/21 02/09/21 Range/Units 17:20 00:32 03:55 WBC 21.6 H (3.8-10.6) k/uL RBC 3.66 L (3.80-5.40) m/uL Hgb 10.7 L (11.4-16.0) gm/dL MCHC 30.1 L (31.0-37.0) g/dL RDW 17.3 H (11.5-15.5) % Plt Count 497 H (150-450) k/uL ABG pO2 (83-108) mmHg ABG HCO3 (21-25) mmol/L ABG Total CO2 (19-24) mmol/L ABG O2 Saturation (94-97) % Sodium (137-145) mmol/L Chloride (98-107) mmol/L BUN (7-17) mg/dL Creatinine (0.52-1.04) mg/dL Glucose (74-99) mg/dL POC Glucose (mg/dL) 165 H 182 H (75-99) mg/dL LD 3 (16-26) % 02/09/21 02/09/21 02/09/21 Range/Units 03:55 05:21 06:02 WBC (3.8-10.6) k/uL RBC (3.80-5.40) m/uL Hgb (11.4-16.0) gm/dL MCHC (31.0-37.0) g/dL RDW (11.5-15.5) % Plt Count (150-450) k/uL ABG pO2 117 H (83-108) mmHg ABG HCO3 27 H (21-25) mmol/L ABG Total CO2 28 H (19-24) mmol/L ABG O2 Saturation 98.9 H (94-97) % Sodium 132 L (137-145) mmol/L Chloride 94 L (98-107) mmol/L BUN 78 H (7-17) mg/dL Creatinine 5.00 H (0.52-1.04) mg/dL Glucose 184 H (74-99) mg/dL POC Glucose (mg/dL) 199 H (75-99) mg/dL LD 3 (16-26) % Assessment and Plan Assessment: This is a 65-year-old woman with multiple medical problems that presented emergency department on 01/28/2021 after a cardiac arrest in which she suffered around 13:10. Seems that the she had a cardiac arrest lasting for 25 minutes * Encephalopathy due to multiple factorial: Largely from Anoxic brain injury from prolonged cardiac arrest. Also has component from component of metabolic encephalopathy, underlying pneuomonia from COVID 19. Sedation has been stopped since 02/03/2021. * Cardiac arrest on 01/28/2021 lasting 25 minutes * Acute pneumonia due to COVID 19 * Uncontrolled the diabetes mellitus and has brittle sugar level (episodes of hypoglycemia 40's to 50's in Nov and December/2020)--improving * 1.3 cm calcified meningioma along the right frontal convexity * Mild hyponatremia--slight improvement * Hypertension * End-stage renal is on dialysis * Carotid artery disease * DVT on Eliquis * History of poor peripheral neuropathy Plan: Continue Keppra 500 mg 1 tablet twice a day. An additional 500mg post dialysis (M,W,F). Continue neuro checks Repeat CT of the head on 02/07/21 shows symmetrical increased attenuation within the bilateral basilar ganglia, new from 01/31/2021. Consider symme trical/metabolic etiology such as nonketotic hyperglycemia. Redemonstrated 1.3 cm calcified meningioma along the right frontal convexity. Otherwise no acute intracranial abnormality seen. She had multiple CT of the head and none showed acute ischemia or intracranial parenchymal bleed or any stroke. She also had 3 EEGs and none showed seizures. We'll defer the rest of medical management to the primary/ICU team. The patient prognosis is poor and has poor meaningful recovery due to prolonged cardiac arrest and multiple comorbitidies. Has only has brainstem reflexes. I spoke with the patient's family members multiple times in the past as well as today ( (Solomon) and patient's daughter via phone and relayed my impression to them. The family are leaning of the patient to be taken to long-term facility. Upon asking that the family that she needs a trach and the PEG they stated that they'll think about it and they'll give us an answer later today. The plan was discussed with the patient's nurse. Lenny Fernandez M.D. Neuro-hospitalist Time with Patient: Less than 30
--- NOTE | 2021-02-09 11:54 | XR ---
EXAMINATION TYPE: XR chest 1V portable DATE OF EXAM: 02/09/2021 COMPARISON: 02/08/2021 INDICATION: Abnormal auscultation TECHNIQUE: Single frontal view of the chest is obtained. FINDINGS: The heart size is mildly prominent. The pulmonary vasculature is prominent. Mild left lower lobe infiltrate is present. There is slight improvement. Endotracheal tube tip is above the ady. Nasogastric tube transverses the thorax. IMPRESSION: 1. Mild improvement lower lobe infiltrate. 2. Lines and catheters discussed above.
[2021-02-09 12:33] LABS: Glucose,Whole Blood 128 mg/dL (75-99)
--- NOTE | 2021-02-09 13:24 | P.PN ---
Subjective Patient is a pleasant 65-year-old the female was discharged from my service yesterday after she was treated for encephalopathy related to hypoglycemia. Patient had a cardiorespiratory arrest was pretty functional ambulate and go shopping at the time when she had a cardiorespiratory arrest, CPR was started and patient was later found to have went to her tachycardia, patient returned to sinus rhythm and 25 minutes subsequently was intubated and brought to emergency department. Patient did have history of ventricular tachycardia in the past pa tient was started on amiodarone at that time. Patient does have medical multiple medical problems including end-stage renal disease dialysis dependent chest x-ray showing significant infiltrate in the right lung mostly appears to be volume overload patient does have low-grade fever which can be secondary to cardiorespiratory arrest but patient was empirically started on Zosyn and patient is being admitted to ICU patient is presently intubated with FiO2 of 100% PEEP of 5 patient is breathing over the ventilator patient is on assist- control/volume controlled ventilation, on propofol patient does have conjunctival and corneal reflexes, does have gag reflex. No significant electrolyte abnormalities were appreciated. 01/29/2021 Patient is on ventilator support patient the doesn't have any significant response in after discontinue additional of sedation for about 4 hours. Patient was evaluated by multiple consultants including neurology patient had an EEG to assess for the brain function because of significant anoxic brain injury, patient has significant background slowing slowing encephalopathy. Patient still has brainstem reflexes that were described above. Patient had an echo Wh ich showed normal ejection fraction and grade 1 diastolic dysfunction. 01/30/2021 Patient was started back on propofol as patient is not tolerating ventilator patient remains on ventilatory support . Patient will undergo he hemodialysis tomorrow. Patient is on cisatracurium as well. Patient is undergoing repeat EEG to assess the brain function patient still has ranged stem reflexes at this time. 01/31/2021 Patient remains in intensity and neck done ventilatory support. Patient had a repeat EEG which she appeared to be bit better. Patient does have corneal reflex but doesn't have any conjunctival reflux, patient does have cough reflex biting on the ventilator. Patient remains on the propofol drip and patient neurological assessment it to be done off sedation although patient doesn't appear to be tolerating off sedation. Patient had dialysis today. 02/01/2021 Patient's sedation is being turned off at this time patient will be evaluated or sedation by neurology. Patient has sluggish are absent pupillary reflexes patient is still barely breathing over the ventilator at this time. Chest x-ray showing left lower lobe infiltrate today patient is on the NG tube feedings patient can use to be on Keppra prophylactically there is focal slowing on the EEG without any epileptiform discharges 02/02/2021 Patient is on sedation no symptom response patient has a corneal reflex but no conjunctival reflux patient does have some gag reflex as well although not responding. Patient was evaluated by neurology patient apparently had significant edema on the CT of the head that was done on january. Aspirin neurology chance of reasonable recovery is low and discussed with neurology and probably call family to discuss overall goals of care including comfort care terminal wean. 02/03/2021 Patient doesn't have any significant improvement in spite of hours of for holding off sedation. Doesn't appear to have significant improvement. Patient clinical condition and overall neurological status is bit worse. Discussed with the patient's family wants to continue the care at this time. 02/04/2021 Patient is off sedation for more than 30 hours without any significant improvem ent in her neurological status. Chest x-ray showing pulmonary edema patient will undergo hemodialysis today patient is unclear reflex her blood pressure. Patient is scheduled for tracheostomy and PEG tube placement on Sunday02/05/2021 patient overall neurological status and overall clinical condition remains the same patient is still not arousable at this time. 02/06/2021 patient is off sedation for about 2-3 days. Patient is presently on Tobrex remains intubated is undergoing hemodialysis as scheduled patient is on cleveprex for blood pressure. 02/07/2021 patient remains on ventilator support her, there is no neurological recovery patient had a repeat CT is showing attenuation in bilateral basal ganglia. Neurologist or had a lengthy discussion with the patient's family regarding neurological recovery which is expected to be poor. will undergo hemodialysis today ration blood sugars are significantly high increasing the dose of Levemir. Patient the need an extra 34 units of sliding scale. Patient blood sugars are high because of Decadron.w 02/08/2021 Patient remains on ventilator support patient is off sedation since 02/03/2021. Patient doesn't have any significant reasonable neurological recovery except for some brainstem reflexes patient does open eyes without any purposeful movements. Patient will undergo hemodialysis again tomorrow. Did discuss her situation in caser meeting. I believe it's appropriate to discuss her case in ethics committee as the care we are providing to the patient is futile care 02/09/2021 Patient remains unresponsive no significant change in her neurological status patient has been off sedation last few days. Patient has severe encephalopathy. Patient the is on Keppra at this time prophylactically no seizure activity. Patient is having nutritional support via entry to feedings. Review of systems: Unable to obtain as patient is intubated All inpatient medications were reviewed and appropriate changes in these medications as dictated in the interval history and assessment and plan. Objective - Vital Signs Vital signs: Vital Signs Temp 97.4 F L 02/09/21 08:00 Pulse 73 02/09/21 10:00 Resp 20 02/09/21 10:00 BP 156/69 02/09/21 07:00 Pulse Ox 96 02/09/21 10:00 Intake & Output 02/08/21 02/09/21 02/09/21 18:59 06:59 18:59 Intake Total 756 714 433 Output Total 200 Balance 556 714 433 Weight 105.1 kg Intake: IV 156 156 91 0.9 @ 10ml/hr 120 120 70 pressure bag 36 36 21 Tube Feeding 510 408 272 Other 90 150 70 Output: Stool 200 Other: Voiding Method Incontinent Incontinent Incontinent ABP, PAP, CO, CI - Last Documented Arterial Blood Pressure 124/48 - Exam PHYSICAL EXAMINATION: GENERAL: Patient is intubated sedated, does have an NG tube with some bloody drainage from the NG tube. Patient has a central line and arterial line HEENT: Pupils are round and and constricted at this time because of propofol. EOMI. No scleral icterus. No conjunctival pallor. Normocephalic, atraumatic. No pharyngeal erythema. No thyromegaly. CARDIOVASCULAR: S1 and S2 present. No murmurs, rubs, or gallops. PULMONARY: Chest is clear to auscultation, no wheezing or crackles. ABDOMEN: Soft, nontender, nondistended, normoactive bowel sounds. No palpable organomegaly. MUSCULOSKELETAL: No joint swelling or deformity. EXTREMITIES: No cyanosis, clubbing, bilateral pedal edema which is chronic NEUROLOGICAL: Intubated sedated but does have brainstem reflexes, patient doesn't have cough reflex is breathing over the ventilator, does have gag re flex. SKIN: Stage I and 2 ulcers which doesn't appear to be infected Note: Because of COVID 19 isolation, some of the history and physical exam findings are indirect and obtained from nursing staff, and other physician examinations to avoid unnecessary contact with the patient. - Labs CBC & Chem 7: 02/09/21 03:55 02/09/21 03:55 Labs: Abnormal Lab Results - Last 24 Hours (Table) 02/06/21 02/08/21 02/08/21 Range/Units 04:55 14:20 17:20 WBC (3.8-10.6) k/uL RBC (3.80-5.40) m/uL Hgb (11.4-16.0) gm/dL MCHC (31.0-37.0) g/dL RDW (11.5-15.5) % Plt Count (150-450) k/uL ABG pO2 (83-108) mmHg ABG HCO3 (21-25) mmol/L ABG Total CO2 (19-24) mmol/L ABG O2 Saturation (94-97) % Sodium (137-145) mmol/L Chloride (98-107) mmol/L BUN (7-17) mg/dL Creatinine (0.52-1.04) mg/dL Glucose (74-99) mg/dL POC Glucose (mg/dL) 182 H 165 H (75-99) mg/dL LD 3 15 L (16-26) % 02/09/21 02/09/21 02/09/21 Range/Units 00:32 03:55 03:55 WBC 21.6 H (3.8-10.6) k/uL RBC 3.66 L (3.80-5.40) m/uL Hgb 10.7 L (11.4-16.0) gm/dL MCHC 30.1 L (31.0-37.0) g/dL RDW 17.3 H (11.5-15.5) % Plt Count 497 H (150-450) k/uL ABG pO2 (83-108) mmHg ABG HCO3 (21-25) mmol/L ABG Total CO2 (19-24) mmol/L ABG O2 Saturation (94-97) % Sodium 132 L (137-145) mmol/L Chloride 94 L (98-107) mmol/L BUN 78 H (7-17) mg/dL Creatinine 5.00 H (0.52-1.04) mg/dL Glucose 184 H (74-99) mg/dL POC Glucose (mg/dL) 182 H (75-99) mg/dL LD 3 (16-26) % 02/09/21 02/09/21 02/09/21 Range/Units 05:21 06:02 12:32 WBC (3.8-10.6) k/uL RBC (3.80-5.40) m/uL Hgb (11.4-16.0) gm/dL MCHC (31.0-37.0) g/dL RDW (11.5-15.5) % Plt Count (150-450) k/uL ABG pO2 117 H (83-108) mmHg ABG HCO3 27 H (21-25) mmol/L ABG Total CO2 28 H (19-24) mmol/L ABG O2 Saturation 98.9 H (94-97) % Sodium (137-145) mmol/L Chloride (98-107) mmol/L BUN (7-17) mg/dL Creatinine (0.52-1.04) mg/dL Glucose (74-99) mg/dL POC Glucose (mg/dL) 199 H 128 H (75-99) mg/dL LD 3 (16-26) % Assessment and Plan Plan: -Cardiorespiratory arrest leading to respiratory failure: Secondary to ventricular tachycardia . Patient had multiple EEGs and computed tomography scan of the brain all of which showed significant anoxic brain injury. Patient is off sedation since no significant improvement in mental status off sedation. Patient has significant anoxic brain injury over all prognosis is poor, possibility of reasonable neurological recovery is low same thing was discussed with the family . For now family wants to continue the care. Patient's family declined a tracheostomy and PEG tube placement at this time. Prolonged intubation can lead to more infections. -Acute hypoxic respiratory failure leading to anoxic brain injury. -Volume overload: Secondary to end-stage renal disease nephrology evaluated the patient. Patient is undergoing hemodialysis as scheduled -Fever on admission: Last fever was 02/06/2021 Most probably secondary to cardiorespiratory arrest blood cultures so far are negative except for sputum cultures showing gram-positive bacilli and cocci which is usually oral cavity bacteria, patient is presently not on any antibiotics at this time -Recent covid 19 infection and month of October, patient had a repeat Covid 19 test that was positive again this is probably not a new infection but residual inactive RNA fragments. -End-stage renal disease, dialysis dependent -Type 2 diabetes mellitus : Blood sugars are better controlled continue with present regimen History of DVT patient had a paratracheal hematoma but from attempted central line placement because of which Eliquis is being held at this time. -Hypertension -Diabetic peripheral neuropathy -bilateral lower extremity ulcers doesn't appear to have cellulitis but does have chronic lymphedema Patient prognosis is extremely poor.
[2021-02-09] MEDS ORDERED: cloNIDine HCL 0.2 MG TAB PO STA (13:40)
[2021-02-09] MEDS: levETIRAcetam 500 MG TAB PO SCH (15:52)
[2021-02-09 17:37] LABS: Glucose,Whole Blood 173 mg/dL (75-99)
[2021-02-09] MEDS: cloNIDine HCL 0.1 MG TAB PO SCH (20:23)
[2021-02-09] MEDS: amLODIPine 10 MG TAB PO SCH (20:23)
[2021-02-09 23:19] LABS: Glucose,Whole Blood 163 mg/dL (75-99)
[2021-02-10 04:24] LABS: C Reactive Protein 14.5 mg/L (<10.0); Potassium 3.7 mmol/L (3.5-5.1)
[2021-02-10 04:25] LABS: Anisocytosis Slight; HCT 35.4 % (34.0-46.0); HGB 10.8 gm/dL (11.4-16.0); Hypochromasia Slight; MCH 29.5 pg (25.0-35.0); MCHC 30.5 g/dL (31.0-37.0); Macrocytosis Slight; Mean Platelet Volume 7.8; Platelet Count 423 k/uL (150-450); RBC 3.65 m/uL (3.80-5.40); RDW 17.1 % (11.5-15.5); WBC 16.9 k/uL (3.8-10.6)
[2021-02-10 04:38] LABS: D-Dimer 4.94 mg/L FEU (<0.60)
[2021-02-10 05:33] LABS: ABG Base Excess 4.7 mmol/L; ABG HCO3 29 mmol/L (21-25); ABG Oxygen Saturation 99.5 % (94-97); ABG PCO2 41 mmHg (35-45); ABG PH 7.45 (7.35-7.45); ABG PO2 134 mmHg (83-108); ABG TCO2 30 mmol/L (19-24)
[2021-02-10 05:58] LABS: Allen Test Performed? no
[2021-02-10 06:04] LABS: Glucose,Whole Blood 169 mg/dL (75-99)
[2021-02-10] MEDS: INSULIN ASPART (NovoLOG) 100 UNIT/ML VIAL SQ SCH ×3 (06:21→18:05)
[2021-02-10] MEDS: CALCIUM ACETATE 667 MG TAB PO SCH ×2 (06:21→15:29)
[2021-02-10] MEDS: INSULIN DETEMIR (LEVEMIR) 100 UNIT/ML SYR SQ SCH (06:22)
[2021-02-10] MEDS: hydrALAZINE HCL 20 MG/ML 1 ML VIAL IVP PRN ×2 (06:39→18:22)
[2021-02-10] MEDS: ALBUTEROL HFA INHALER INHALATION PRN ×4 (07:35→19:53)
[2021-02-10] MEDS: CHLORHEXIDINE GLUCONATE 15 ML CUP MUCOUS MEM SCH ×2 (08:16→21:09)
[2021-02-10] MEDS: cloNIDine HCL 0.1 MG TAB PO SCH ×3 (08:16→21:09)
[2021-02-10] MEDS: DEXAMETHASONE SOD PHOSPHATE 10 MG/ML 1 ML VIAL IV SCH (08:16)
[2021-02-10] MEDS: hydrALAZINE HCL 50 MG TAB PO SCH ×3 (08:16→21:08)
[2021-02-10] MEDS: ASPIRIN 81 MG PO SCH (08:16)
[2021-02-10] MEDS: PANTOPRAZOLE 40 MG/10 ML VIAL IVP SCH ×2 (08:17→21:09)
[2021-02-10] MEDS: ZINC SULFATE 220 MG CAP PO SCH (08:17)
--- NOTE | 2021-02-10 08:29 | P.PN ---
Subjective Progress Note Date: 02/10/21 On 02/07/2021 on seeing the patient for a follow-up. The patient is post cardiac arrest and hypoxic encephalopathy. The patient remains intubated on a mechanical ventilator. The patient is currently off sedation and neurologic function of being monitored very closely. The patient has been off sedation since 02/03/2021. Currently on assist control mode at the rate of 14 with a tidal volume of 350 and FiO2 of 30% with a PEEP of 5. The patient's chest x-ray is showing infiltrates bilaterally more significant in the left lower lobe. Blood gases is pending for now. Dr Fernandez had a discussion was done with the family earlier prior to l and the plan was to proceed with tracheostomy tube insertion for long-term need of ventilatory support. The patient meanwhile is receiving enteral feeding for nutritional support and the patient is currently on Nepro 34 mL an hour per goal. The patient is requiring dialysis intermittently. That the patient has an incisional disease and she has been on dialysis on outpatient basis 3 times a week. The patient has nephrology is on the case. The Cleviprex was discontinued and the patient's blood pressure is being monitored. Noted the patient has multiple medical problems and comorbidities. The patient has end-stage renal disease. The patient undergoes hemodialysis. The patient also has coronary artery disease, diabetes mellitus type 2 and the patient's had V. tach and cardiac arrest. The family initiated a CPR according to the history as the patient was found to be unresponsive. The patient got defibrillated and CPR was continued by EMS. The downtime was estimated to be at least 20 minutes. The patient has been in intensive care unit since 01/30/2021. He is post V. fib arrest. He is also on Norvasc 10 mg a day for blood pressure control. He is on Keppra for any seizure activity, prophylaxis. The patient is on aspirin. The patient is off sedation. The patient is on Decadron 6 mg IV scheduled. Other comorbidities include diabetic peripheral neuropathy, chronic lower extremity ulcers and onset cellulitis and the patient has chronic lymphedema. I further can't understand the patient's family is interested in transferring her to another facility. Meanwhile, the patient's blood work today showed a white cell count 15.4 with a hemoglobin of 9.7 and the platelet count of 371. Creatinine is 86 with a creatinine of 6.1 and sodium level of 132. The chest x-ray from today is essentially clear. The patient's ET tube is in a good location. The patient has a G-tube in place. No significant pulmonary infiltration. The patient is tolerating her enteral feeding for nutritional support. Her last session of hemodialysis was on Sunday which is 3 days ago. No seizure activity has been noted. The patient remains on Decadron 6 mg IV every 24 hours. 02/08/2021, the patient remains off sedation. There is a case of hypoxic encephalopathy and the patient has not shown any signs of neurologic recovery. No seizure activity has been noted. I discussed the case with neurology and Dr. Galvez has also spoken to the family in this regard. The patient remains off sedation. Neurologic functions are quite impaired. She does have a weak cough and gag. She is completely unresponsive to any verbal stimulation. He does not withdraw to painful stimulation. She is currently on assist control mode at the rate of 14 with a tidal volume of 350 and FiO2 of 30% with a PEEP of 5. Yesterday, I give the patient a breathing trial with a pressure support of 10 and PEEP of 5. She was able to tolerate that for a total of 10 hours and ultimately she had to be placed back on assist control mode of ventilation yesterday. The patient underwent also dialysis yesterday. Nephrology remains on the case. The patient is still off Cleviprex Blood pressure is currently at 157/64. The patient is also on Norvasc 10 mg by mouth daily in addition to hydralazine 100 mg by mouth 3 times a day regarding blood pressure control. Cardiac rhythm is sinus. The blood gases from today showed a pH of 7.44 with a pCO2 of 42 and pO2 of 130 and this was done on assist control mode of ventilation. Chest x-ray still pending for now. Meanwhile, the rest of the blood work include a CBC shows a white cell count of 18 with a hemoglobin of 10.7 and the platelets of 436. BUN is at 58 with a creatinine of 4.1 and the patient's potassium level is at 3.8. The patient is receiving enteral feeding for nutritional support and the patient is currently on Nepro running at the rate of 34 mL an hour. She remains on Decadron 6 mg IV every 24 hours been no seizure activity has been noted. No other significant events overnight. She remains on [facility]. Neurologist on the case. 02/09/2021, neurologically unchanged and the patient is unresponsive. She has a cough and a gag on today's evaluation. She is also having some respiratory se cretions and she requires suctioning every shift. Meanwhile, the patient is currently on a pressure support mode of ventilation with a pressure support of 10 and a PEEP of 5. She was able to tolerate this setting for the past 24 hours and her current FiO2 is at 30%. She is hemodynamically stable. She is undergoing hemodialysis today. No neurological recovery. Discussed the case with neurology. She is neurologically impaired and she has anoxic encephalopathy. No seizure activity has been noted and the patient remains on Keppra. She is receiving enteral feeding for nutritional support through her PEG tube. She has adequate blood pressure control and the patient is hemodynamically stable for now. Cardiac rhythm is sinus for now. 2020, neurologically the patient remains unchanged and we have not seen any signs of neurologic recovery this patient over the past several days. Neurology is closely monitoring her progress and I have been talking to Dr. barros and based on our conversation there is no signs of any neurologic progress and recovery. Meanwhile, I have switched this patient to a pressure support mode of ventilation and she remains on a pressure support of 10 and she is also a PEEP of 5. She is doing very well with an FiO2 of 30%. No signs of any respiratory distress pH is able to generate adequate tidal volumes. No tachypnea. No significant respiratory secretions. The chest x-ray from today is not showing any acute abnormalities and the lungs are well expanded. No pulmonary infiltrates. ET tube is in a good location. There may be some left basilar atelectasis compared to yesterday. Otherwise, the patient remains hemodynamically stable. The patient continues to receive enteral feeding and nutritional support. The patient is able to tolerate her tube feeds. Cardiac rhythm is sinus. No fever. No chills. Her dialysis was done yesterday and a total of 2 L of ultrafiltration was done. The patient does not make any urine for now. The patient is also on 35 units of Levemir the patient is on a sliding scale coverage. She is receiving enteral feeding in the form of Nepro at the rate of 34 mL an hour which is currently at goal. She remains on 6 mg of IV Decadron for 24 hours. She is also on Keppra. No seizure activity has been noted. Objective - Vital Signs Vital signs: Vital Signs Temp 97.9 F 02/10/21 04:00 Pulse 71 02/10/21 07:00 Resp 13 02/10/21 07:00 BP 166/56 02/09/21 16:13 Pulse Ox 98 02/10/21 07:00 Intake & Output 02/09/21 02/10/21 02/10/21 18:59 06:59 18:59 Intake Total 766 754 47 Output Total 2200 Balance -1434 754 47 Weight 103.6 kg Intake: IV 156 156 13 0.9 @ 10ml/hr 120 120 10 pressure bag 36 36 3 Tube Feeding 510 408 34 Other 100 190 Output: Stool 200 Hemodialysis 1999 Other: Voiding Method Incontinent Incontinent ABP, PAP, CO, CI - Last Documented Arterial Blood Pressure 167/60 - Exam Currently intubated, and mechanically ventilated. Currently on no sedation. The patient remains completely unresponsive. Orotracheal and orogastric tube are both in place and the patient is on spontaneous breathing with a pressure support of 10 and a PEEP of 5. HEENT examination is grossly unremarkable. Neck supple. Full range of motion. No adenopathy thyromegaly or neck vein distention. Cardiovascular examination reveals regular rhythm rate. S1-S2 normal. No S3 or S4. No discernible murmur noted. Heart sounds are distant. Lungs reveal diffuse bilateral rhonchi and crackles. There are no wheezes. Br eath sounds are equal bilaterally. Abdomen soft bowel sounds are heard. No masses or tenderness. Extremities are intact. No cyanosis or clubbing. There is bilateral lower extremity edema. Skin is without rash or lesion. Neurologic examination is unchanged. Off of sedation, she opens her eyes, but there is no purposeful movements. Pupils are equal and symmetrical. The patient has a preferential gaze to the left. No nystagmus. No clonus. Does not withdraw to any painful stimulation. Reflexes are diminished in all 4 extremities. No facial asymmetry. - Labs CBC & Chem 7: 02/10/21 03:45 02/10/21 03:45 Labs: Abnormal Lab Results - Last 24 Hours (Table) 02/09/21 02/09/21 02/09/21 Range/Units 12:32 17:35 23:18 WBC (3.8-10.6) k/uL RBC (3.80-5.40) m/uL Hgb (11.4-16.0) gm/dL MCHC (31.0-37.0) g/dL RDW (11.5-15.5) % Fibrinogen (200-500) mg/dL D-Dimer (<0.60) mg/L FEU ABG pO2 (83-108) mmHg ABG HCO3 (21-25) mmol/L ABG Total CO2 (19-24) mmol/L ABG O2 Saturation (94-97) % Sodium (137-145) mmol/L Chloride (98-107) mmol/L BUN (7-17) mg/dL Creatinine (0.52-1.04) mg/dL Glucose (74-99) mg/dL POC Glucose (mg/dL) 128 H 173 H 163 H (75-99) mg/dL Creatine Kinase (30-135) U/L C-Reactive Protein (<10.0) mg/L 02/10/21 02/10/21 02/10/21 Range/Units 03:45 03:45 03:45 WBC 16.9 H (3.8-10.6) k/uL RBC 3.65 L (3.80-5.40) m/uL Hgb 10.8 L (11.4-16.0) gm/dL MCHC 30.5 L (31.0-37.0) g/dL RDW 17.1 H (11.5-15.5) % Fibrinogen 634 H (200-500) mg/dL D-Dimer 4.94 H (<0.60) mg/L FEU ABG pO2 (83-108) mmHg ABG HCO3 (21-25) mmol/L ABG Total CO2 (19-24) mmol/L ABG O2 Saturation (94-97) % Sodium 132 L (137-145) mmol/L Chloride 95 L (98-107) mmol/L BUN 53 H (7-17) mg/dL Creatinine 3.58 H (0.52-1.04) mg/dL Glucose 150 H (74-99) mg/dL POC Glucose (mg/dL) (75-99) mg/dL Creatine Kinase 22 L (30-135) U/L C-Reactive Protein 14.5 H (<10.0) mg/L 02/10/21 02/10/21 Range/Units 05:31 06:03 WBC (3.8-10.6) k/uL RBC (3.80-5.40) m/uL Hgb (11.4-16.0) gm/dL MCHC (31.0-37.0) g/dL RDW (11.5-15.5) % Fibrinogen (200-500) mg/dL D-Dimer (<0.60) mg/L FEU ABG pO2 134 H (83-108) mmHg ABG HCO3 29 H (21-25) mmol/L ABG Total CO2 30 H (19-24) mmol/L ABG O2 Saturation 99.5 H (94-97) % Sodium (137-145) mmol/L Chloride (98-107) mmol/L BUN (7-17) mg/dL Creatinine (0.52-1.04) mg/dL Glucose (74-99) mg/dL POC Glucose (mg/dL) 169 H (75-99) mg/dL Creatine Kinase (30-135) U/L C-Reactive Protein (<10.0) mg/L Assessment and Plan Plan: 1 Cardiac arrest most likely secondary to cardiac arrhythmia initial rhythm was ventricular fibrillation upon EMS arrival. The patient came into the hospital on 01/30/2021 patient is in the intensive care unit since. The patient has obvious signs of anoxic encephalopathy. Estimated down time of the time of the cardiac arrest was around 20 minutes. The patient currently is hemodynamically stable on no pressors 2 Acute hypoxic respiratory failure secondary to above, with significant anoxic brain injury. Patient is able to tolerate a pressure support of 10 and a PEEP of 5 and FiO2 of 30%. . Chest x-ray findings are essentially unchanged and stable. She is not being extubated due to concern of her ability to secure her airways. She does have a cough and gag. Neurologically she is appears that she has anoxic encephalopathy. Note that the patient has been on this spontaneous mode of breathing for the past 48 hours. She is doing well and she is quite comfortable. Chest x-ray was noted that showed some left basilar atelectatic change. No evidence of any consolidation or airspace disease. Blood gases was noted and the patient is able to oxygenate normally 3 unresponsiveness secondary to anoxic encephalopathy 4 Anoxic brain injury and metabolic encephalopathy secondary to cardiac arrest. The patient is currently off sedation and the patient is not showing any significant neurologic recovery. 5 Type 2 diabetes. The patient is currently on Levemir insulin at 35 units along with SS coverage. 6 Benign essential hypertension. 7 end stage renal disease on hemodialysis. The patient is undergoing episodic dialysis amount currently undergoing hemodialysis neurologically, last dialysis was done yesterday 8 History of carotid artery disease. 9 History of DVT 10 History of diabetic peripheral neuropathy. 11 History of cardiac arrhythmia requiring cardiac ablation. 12 Chronic lymphedema and cellulitis of both lower extremities. 13 History of irritable bowel syndrome. 14 History of covid 19 infection in October of 2020, and the patient also tested positive on 01/28/2021. 15 Possible right paratracheal hematoma from attempted central line placement, stable hemoglobin, chest x-ray findings and is also stable. Plan: Continue ventilator support, no plans for extubation at this point in time filled the. Chest x-rays stable for now. I do not think the patient will do well if extubated on a long-term basis. I do not think she has enough neurologic function to maintain and perform adequate pulmonary toileting No sedation for now Family is declined tracheostomy tube insertion and PEG tube insertion Neurologist on the case regarding anoxic encephalopathy , had several discussions with neurology. No obvious neurologic recovery the patient's long- term prognosis poor Continue Keppra Started patient on Lantus 35 units along with NovoLog sliding scale coverage and monitor blood sugar control The prognosis extremely poor Continue enteral feeding for nutritional support Overall prognosis extremely poor baseline above-mentioned comorbidities. We'll continue to follow. The family is going to make it final decision about her CODE STATUS. She is being considered for end-of-life care and possible extubation.critically care evaluation was done more than 30 minutes. Time with Patient: Greater than 30
[2021-02-10] MEDS: levETIRAcetam IV 500 MG in SODIUM CHLORIDE 0.9% 100 ML IVPB SCH ×2 (08:30→21:09)
--- NOTE | 2021-02-10 09:11 | XR ---
EXAMINATION TYPE: XR chest 1V portable DATE OF EXAM: 02/10/2021 COMPARISON: 02/09/2021 INDICATION: Abnormal auscultation TECHNIQUE: Single frontal view of the chest is obtained. FINDINGS: The heart size is mildly prominent. The pulmonary vasculature is normal. Mild diffuse increased lung markings throughout the upper lung [place]. Left lower lobe infiltrate is present findings may be slightly worsened over the interval. Endotracheal tube tip is above the ady. Nasogastric tube transverses the thorax. IMPRESSION: 1. Minimal infiltrates upper lung [place] and left lower lobe slightly worsened over the interval. 2. Lines and catheters discussed above.
[2021-02-10 10:01] LABS: Ferritin 1308.2 ng/mL (10.0-291.0)
--- NOTE | 2021-02-10 10:17 | P.PN ---
Subjective Patient is seen in follow-up for end-stage renal disease. She is maintained on hemodialysis on Sunday schedule. Intubated. On 30% FiO2. Severe anoxic brain injury. Remains off sedation. No problems with dialysis yesterday. Vital signs are stable. Intubated. Exam discussed with the nurse. Objective - Vital Signs Vital signs: Vital Signs Temp 97.9 F 02/10/21 04:00 Pulse 71 02/10/21 07:00 Resp 13 02/10/21 07:00 BP 166/56 02/09/21 16:13 Pulse Ox 98 02/10/21 07:00 Intake & Output 02/09/21 02/10/21 02/10/21 18:59 06:59 18:59 Intake Total 766 754 47 Output Total 2200 Balance -1434 754 47 Weight 103.6 kg Intake: IV 156 156 13 0.9 @ 10ml/hr 120 120 10 pressure bag 36 36 3 Tube Feeding 510 408 34 Other 100 190 Output: Stool 200 Hemodialysis 2000 Other: Voiding Method Incontinent Incontinent ABP, PAP, CO, CI - Last Documented Arterial Blood Pressure 167/60 - Labs CBC & Chem 7: 02/10/21 03:45 02/10/21 03:45 Labs: Abnormal Lab Results - Last 24 Hours (Table) 02/09/21 02/09/21 02/09/21 Range/Units 12:32 17:35 23:18 WBC (3.8-10.6) k/uL RBC (3.80-5.40) m/uL Hgb (11.4-16.0) gm/dL MCHC (31.0-37.0) g/dL RDW (11.5-15.5) % Fibrinogen (200-500) mg/dL D-Dimer (<0.60) mg/L FEU ABG pO2 (83-108) mmHg ABG HCO3 (21-25) mmol/L ABG Total CO2 (19-24) mmol/L ABG O2 Saturation (94-97) % Sodium (137-145) mmol/L Chloride (98-107) mmol/L BUN (7-17) mg/dL Creatinine (0.52-1.04) mg/dL Glucose (74-99) mg/dL POC Glucose (mg/dL) 128 H 173 H 163 H (75-99) mg/dL Ferritin (10.0-291.0) ng/mL Creatine Kinase (30-135) U/L C-Reactive Protein (<10.0) mg/L 02/10/21 02/10/21 02/10/21 Range/Units 03:45 03:45 03:45 WBC 16.9 H (3.8-10.6) k/uL RBC 3.65 L (3.80-5.40) m/uL Hgb 10.8 L (11.4-16.0) gm/dL MCHC 30.5 L (31.0-37.0) g/dL RDW 17.1 H (11.5-15.5) % Fibrinogen 634 H (200-500) mg/dL D-Dimer 4.94 H (<0.60) mg/L FEU ABG pO2 (83-108) mmHg ABG HCO3 (21-25) mmol/L ABG Total CO2 (19-24) mmol/L ABG O2 Saturation (94-97) % Sodium 132 L (137-145) mmol/L Chloride 95 L (98-107) mmol/L BUN 53 H (7-17) mg/dL Creatinine 3.58 H (0.52-1.04) mg/dL Glucose 150 H (74-99) mg/dL POC Glucose (mg/dL) (75-99) mg/dL Ferritin 1308.2 H (10.0-291.0) ng/mL Creatine Kinase 22 L (30-135) U/L C-Reactive Protein 14.5 H (<10.0) mg/L 02/10/21 02/10/21 Range/Units 05:31 06:03 WBC (3.8-10.6) k/uL RBC (3.80-5.40) m/uL Hgb (11.4-16.0) gm/dL MCHC (31.0-37.0) g/dL RDW (11.5-15.5) % Fibrinogen (200-500) mg/dL D-Dimer (<0.60) mg/L FEU ABG pO2 134 H (83-108) mmHg ABG HCO3 29 H (21-25) mmol/L ABG Total CO2 30 H (19-24) mmol/L ABG O2 Saturation 99.5 H (94-97) % Sodium (137-145) mmol/L Chloride (98-107) mmol/L BUN (7-17) mg/dL Creatinine (0.52-1.04) mg/dL Glucose (74-99) mg/dL POC Glucose (mg/dL) 169 H (75-99) mg/dL Ferritin (10.0-291.0) ng/mL Creatine Kinase (30-135) U/L C-Reactive Protein (<10.0) mg/L Assessment and Plan Plan: Assessment: 1. End-stage renal disease maintained on hemodialysis on Sunday schedule. 2. Status post cardiopulmonary arrest. 3. Anoxic brain injury. 4. Hypertension with chronic kidney disease. Exacerbated by steroids. 5. Chronic kidney disease mineral bone disease maintained on PhosLo. 6. Diabetes mellitus. 7. COVID-19 positive. On steroids and zinc. Plan: Hemodialysis tomorrow. Family refused tracheostomy and PEG tube placement. Overall prognosis guarded. Comfort measures be considered.
--- NOTE | 2021-02-10 10:49 | P.PN ---
Subjective Progress Note Date: 02/10/21 CHIEF COMPLAINT: Cardiac arrest HISTORY OF PRESENT ILLNESS: Patient is currently intubated and on mechanical ventilation in the ICU. Surgical service is following regards to possible tracheostomy and PEG tube placement. At this time family has declined trach and PEG. Patient has been off sedation. She remains unresponsive. She is followed by neurology. She also had dialysis yesterday. Afebrile WBC 16.9 PHYSICAL EXAM: VITAL SIGNS: Reviewed. GENERAL: Well-developed in no acute distress. HEENT: No sclera icterus. Extraocular movements grossly intact. Moist buccal mucosa. Head is atraumatic, normocephalic. ABDOMEN: Soft. Nondistended. Nontender. NEUROLOGIC: Intubated ASSESSMENT: 1. Cardiac arrest 2. Acute hypoxic respiratory failure 3. anoxic brain injury 4. History of DVT maintained on Eliquis 5. End-stage renal disease 6. History of Covid 19 infection in October 2020 PLAN: -Family has declined tracheostomy and PEG tube placement -Surgical service will remain on standby -Continue supportive care -Continue ICU management Physician Layout Artist note has been reviewed by physician. Signing provider agrees with the documented findings, assessment, and plan of care. Objective - Vital Signs Vital signs: Vital Signs Temp 97.9 F 02/10/21 04:00 Pulse 71 02/10/21 07:00 Resp 13 02/10/21 07:00 BP 166/56 02/09/21 16:13 Pulse Ox 98 02/10/21 07:00 Intake & Output 02/09/21 02/10/21 02/10/21 18:59 06:59 18:59 Intake Total 766 754 47 Output Total 2200 Balance -1434 754 47 Weight 103.6 kg Intake: IV 156 156 13 0.9 @ 10ml/hr 120 120 10 pressure bag 36 36 3 Tube Feeding 510 408 34 Other 100 190 Output: Stool 200 Hemodialysis 1999 Other: Voiding Method Incontinent Incontinent ABP, PAP, CO, CI - Last Documented Arterial Blood Pressure 167/60 - Labs CBC & Chem 7: 02/10/21 03:45 02/10/21 03:45 Labs: Abnormal Lab Results - Last 24 Hours (Table) 02/09/21 02/09/21 02/09/21 Range/Units 12:32 17:35 23:18 WBC (3.8-10.6) k/uL RBC (3.80-5.40) m/uL Hgb (11.4-16.0) gm/dL MCHC (31.0-37.0) g/dL RDW (11.5-15.5) % Fibrinogen (200-500) mg/dL D-Dimer (<0.60) mg/L FEU ABG pO2 (83-108) mmHg ABG HCO3 (21-25) mmol/L ABG Total CO2 (19-24) mmol/L ABG O2 Saturation (94-97) % Sodium (137-145) mmol/L Chloride (98-107) mmol/L BUN (7-17) mg/dL Creatinine (0.52-1.04) mg/dL Glucose (74-99) mg/dL POC Glucose (mg/dL) 128 H 173 H 163 H (75-99) mg/dL Ferritin (10.0-291.0) ng/mL Creatine Kinase (30-135) U/L C-Reactive Protein (<10.0) mg/L 02/10/21 02/10/21 02/10/21 Range/Units 03:45 03:45 03:45 WBC 16.9 H (3.8-10.6) k/uL RBC 3.65 L (3.80-5.40) m/uL Hgb 10.8 L (11.4-16.0) gm/dL MCHC 30.5 L (31.0-37.0) g/dL RDW 17.1 H (11.5-15.5) % Fibrinogen 634 H (200-500) mg/dL D-Dimer 4.94 H (<0.60) mg/L FEU ABG pO2 (83-108) mmHg ABG HCO3 (21-25) mmol/L ABG Total CO2 (19-24) mmol/L ABG O2 Saturation (94-97) % Sodium 132 L (137-145) mmol/L Chloride 95 L (98-107) mmol/L BUN 53 H (7-17) mg/dL Creatinine 3.58 H (0.52-1.04) mg/dL Glucose 150 H (74-99) mg/dL POC Glucose (mg/dL) (75-99) mg/dL Ferritin 1308.2 H (10.0-291.0) ng/mL Creatine Kinase 22 L (30-135) U/L C-Reactive Protein 14.5 H (<10.0) mg/L 02/10/21 02/10/21 Range/Units 05:31 06:03 WBC (3.8-10.6) k/uL RBC (3.80-5.40) m/uL Hgb (11.4-16.0) gm/dL MCHC (31.0-37.0) g/dL RDW (11.5-15.5) % Fibrinogen (200-500) mg/dL D-Dimer (<0.60) mg/L FEU ABG pO2 134 H (83-108) mmHg ABG HCO3 29 H (21-25) mmol/L ABG Total CO2 30 H (19-24) mmol/L ABG O2 Saturation 99.5 H (94-97) % Sodium (137-145) mmol/L Chloride (98-107) mmol/L BUN (7-17) mg/dL Creatinine (0.52-1.04) mg/dL Glucose (74-99) mg/dL POC Glucose (mg/dL) 169 H (75-99) mg/dL Ferritin (10.0-291.0) ng/mL Creatine Kinase (30-135) U/L C-Reactive Protein (<10.0) mg/L
[2021-02-10 11:10] LABS: Glucose,Whole Blood 169 mg/dL (75-99)
--- NOTE | 2021-02-10 13:12 | P.PN ---
Subjective Progress Note Date: 02/10/21 The patient was seen at bedside and per the patient nurse she continues to be about the same. She is on spontaneous breathing but otherwise is not verbalizing or moving the extremities to command. She stated that the patient's family called him yesterday and they did not want to pursue with a trach and a pad and possibly considering comfort care. Objective - Vital Signs Vital signs: Vital Signs Temp 97.9 F 02/10/21 08:00 Pulse 71 02/10/21 12:00 Resp 11 L 02/10/21 12:00 BP 160/70 02/10/21 12:00 Pulse Ox 98 02/10/21 12:00 Intake & Output 02/09/21 02/10/21 02/10/21 18:59 06:59 18:59 Intake Total 766 754 445 Output Total 2200 0 Balance -1434 754 445 Weight 103.6 kg 103.6 kg Intake: IV 156 156 181 0.9 @ 10ml/hr 120 120 60 levETIRAcetam IV 500 mg 100 In Sodium Chloride 0.9% 100 ml @ 400 mls/hr IVPB Q12HR [facility] Rx#:[id number] pressure bag 36 36 21 Tube Feeding 510 408 170 Other 100 190 94 Output: Urine 0 Stool 200 Hemodialysis 2000 Other: Voiding Method Incontinent Incontinent Incontinent # Voids 0 ABP, PAP, CO, CI - Last Documented Arterial Blood Pressure 160/59 - Exam GENERAL: The patient is lying in bed and is not in acute distress. Not on any sedation. LUNG: Intubated on sponatenous breathing. Not labored breathing. NEUROLOGICAL: Limited because of her condition. Not on any sedation Higher mental function: GCS 6 (E3,VT1,M2). Patient is non responisve and does verbalized or attempt to verbalize and does not follow commands. Cranial nerves: Would open eyes to painful stimuli. The pupils are round, equal (3mm bilaterally) and reactive to light. Positive corneal reflex bilaterally. +ve oculocephalic reflex. No facial weakness. Positive cough and gag reflex. On sponatenous breathing Motor: No movement noted sponateously or to painful stimuli. Decrease tone in bilateral upper extremities. Has lymphedema of bilateral lower extremities. To painful stimuli of the right upper extremity she has extensor posturing otherwise no movement in any of extremeties. Has no spontaneous movement. Cerebellum: Could not assess. Sensation: Could not assess. Reflexes (right/left): 1+ uppers. 0 in lowers and limited because of lymphedema. Plantars are mute bilaterally. - Labs CBC & Chem 7: 02/10/21 03:45 02/10/21 03:45 Labs: Abnormal Lab Results - Last 24 Hours (Table) 02/09/21 02/09/21 02/10/21 Range/Units 17:35 23:18 03:45 WBC 16.9 H (3.8-10.6) k/uL RBC 3.65 L (3.80-5.40) m/uL Hgb 10.8 L (11.4-16.0) gm/dL MCHC 30.5 L (31.0-37.0) g/dL RDW 17.1 H (11.5-15.5) % Fibrinogen (200-500) mg/dL D-Dimer (<0.60) mg/L FEU ABG pO2 (83-108) mmHg ABG HCO3 (21-25) mmol/L ABG Total CO2 (19-24) mmol/L ABG O2 Saturation (94-97) % Sodium (137-145) mmol/L Chloride (98-107) mmol/L BUN (7-17) mg/dL Creatinine (0.52-1.04) mg/dL Glucose (74-99) mg/dL POC Glucose (mg/dL) 173 H 163 H (75-99) mg/dL Ferritin (10.0-291.0) ng/mL Creatine Kinase (30-135) U/L C-Reactive Protein (<10.0) mg/L 02/10/21 02/10/21 02/10/21 Range/Units 03:45 03:45 05:31 WBC (3.8-10.6) k/uL RBC (3.80-5.40) m/uL Hgb (11.4-16.0) gm/dL MCHC (31.0-37.0) g/dL RDW (11.5-15.5) % Fibrinogen 634 H (200-500) mg/dL D-Dimer 4.94 H (<0.60) mg/L FEU ABG pO2 134 H (83-108) mmHg ABG HCO3 29 H (21-25) mmol/L ABG Total CO2 30 H (19-24) mmol/L ABG O2 Saturation 99.5 H (94-97) % Sodium 132 L (137-145) mmol/L Chloride 95 L (98-107) mmol/L BUN 53 H (7-17) mg/dL Creatinine 3.58 H (0.52-1.04) mg/dL Glucose 150 H (74-99) mg/dL POC Glucose (mg/dL) (75-99) mg/dL Ferritin 1308.2 H (10.0-291.0) ng/mL Creatine Kinase 22 L (30-135) U/L C-Reactive Protein 14.5 H (<10.0) mg/L 02/10/21 02/10/21 Range/Units 06:03 11:08 WBC (3.8-10.6) k/uL RBC (3.80-5.40) m/uL Hgb (11.4-16.0) gm/dL MCHC (31.0-37.0) g/dL RDW (11.5-15.5) % Fibrinogen (200-500) mg/dL D-Dimer (<0.60) mg/L FEU ABG pO2 (83-108) mmHg ABG HCO3 (21-25) mmol/L ABG Total CO2 (19-24) mmol/L ABG O2 Saturation (94-97) % Sodium (137-145) mmol/L Chloride (98-107) mmol/L BUN (7-17) mg/dL Creatinine (0.52-1.04) mg/dL Glucose (74-99) mg/dL POC Glucose (mg/dL) 169 H 169 H (75-99) mg/dL Ferritin (10.0-291.0) ng/mL Creatine Kinase (30-135) U/L C-Reactive Protein (<10.0) mg/L Assessment and Plan Assessment: This is a 65-year-old woman with multiple medical problems that presented emergency department on 01/28/2021 after a cardiac arrest in which she suffered around 13:10. Seems that the she had a cardiac arrest lasting for 25 minutes * Encephalopathy due to multiple factorial: Largely from Anoxic brain injury from prolonged cardiac arrest. Also has component from component of metabolic encephalopathy, underlying pneuomonia from COVID 19. Sedation has been stopped since 02/03/2021. * Cardiac arrest on 01/28/2021 lasting 25 minutes * Acute pneumonia due to COVID 19 * Uncontrolled the diabetes mellitus and has brittle sugar level (episodes of hypoglycemia 40's to 50's in Nov and December/2020)--improving * 1.3 cm calcified meningioma along the right frontal convexity * Mild hyponatremia--slight improvement * Hypertension * End-stage renal is on dialysis * Carotid artery disease * DVT on Eliquis * History of poor peripheral neuropathy Plan: Continue Keppra 500 mg 1 tablet twice a day. An additional 500mg post dialysis (M,W,F). Continue neuro checks Repeat CT of the head on 02/07/21 shows symmetrical increased attenuation within the bilateral basilar ganglia, new from 01/31/2021. Consider symmetrical/metabolic etiology such as nonketotic hyperglycemia. Redemonstrated 1.3 cm calcified meningioma along the right frontal convexity. Otherwise no acute intracranial abnormality seen. She had multiple CT of the head and none showed acute ischemia or intracranial parenchymal bleed or any stroke. She also had 3 EEGs and none showed seizures. We'll defer the rest of medical management to the primary/ICU team. The patient prognosis is poor and has poor meaningful recovery due to prolonged cardiac arrest and multiple comorbitidies. Has only has brainstem reflexes. Per the patient's nurse, family is considering comfort care. The plan was discussed with the patient's nurse. Lenny Fernandez M.D. Neuro-hospitalist Time with Patient: Less than 30
--- NOTE | 2021-02-10 16:37 | P.PN ---
Subjective Patient is a pleasant 65-year-old the female was discharged from my service yesterday after she was treated for encephalopathy related to hypoglycemia. Patient had a cardiorespiratory arrest was pretty functional ambulate and go shopping at the time when she had a cardiorespiratory arrest, CPR was started and patient was later found to have went to her tachycardia, patient returned to sinus rhythm and 25 minutes subsequently was intubated and brought to emergency department. Patient did have history of ventricular tachycardia in the past pa tient was started on amiodarone at that time. Patient does have medical multiple medical problems including end-stage renal disease dialysis dependent chest x-ray showing significant infiltrate in the right lung mostly appears to be volume overload patient does have low-grade fever which can be secondary to cardiorespiratory arrest but patient was empirically started on Zosyn and patient is being admitted to ICU patient is presently intubated with FiO2 of 100% PEEP of 5 patient is breathing over the ventilator patient is on assist- control/volume controlled ventilation, on propofol patient does have conjunctival and corneal reflexes, does have gag reflex. No significant electrolyte abnormalities were appreciated. 01/29/2021 Patient is on ventilator support patient the doesn't have any significant response in after discontinue additional of sedation for about 4 hours. Patient was evaluated by multiple consultants including neurology patient had an EEG to assess for the brain function because of significant anoxic brain injury, patient has significant background slowing slowing encephalopathy. Patient still has brainstem reflexes that were described above. Patient had an echo Wh ich showed normal ejection fraction and grade 1 diastolic dysfunction. 01/30/2021 Patient was started back on propofol as patient is not tolerating ventilator patient remains on ventilatory support . Patient will undergo he hemodialysis tomorrow. Patient is on cisatracurium as well. Patient is undergoing repeat EEG to assess the brain function patient still has ranged stem reflexes at this time. 01/31/2021 Patient remains in intensity and neck done ventilatory support. Patient had a repeat EEG which she appeared to be bit better. Patient does have corneal reflex but doesn't have any conjunctival reflux, patient does have cough reflex biting on the ventilator. Patient remains on the propofol drip and patient neurological assessment it to be done off sedation although patient doesn't appear to be tolerating off sedation. Patient had dialysis today. 02/01/2021 Patient's sedation is being turned off at this time patient will be evaluated or sedation by neurology. Patient has sluggish are absent pupillary reflexes patient is still barely breathing over the ventilator at this time. Chest x-ray showing left lower lobe infiltrate today patient is on the NG tube feedings patient can use to be on Keppra prophylactically there is focal slowing on the EEG without any epileptiform discharges 02/02/2021 Patient is on sedation no symptom response patient has a corneal reflex but no conjunctival reflux patient does have some gag reflex as well although not responding. Patient was evaluated by neurology patient apparently had significant edema on the CT of the head that was done on january. Aspirin neurology chance of reasonable recovery is low and discussed with neurology and probably call family to discuss overall goals of care including comfort care terminal wean. 02/03/2021 Patient doesn't have any significant improvement in spite of hours of for holding off sedation. Doesn't appear to have significant improvement. Patient clinical condition and overall neurological status is bit worse. Discussed with the patient's family wants to continue the care at this time. 02/04/2021 Patient is off sedation for more than 30 hours without any significant improvem ent in her neurological status. Chest x-ray showing pulmonary edema patient will undergo hemodialysis today patient is unclear reflex her blood pressure. Patient is scheduled for tracheostomy and PEG tube placement on Sunday02/05/2021 patient overall neurological status and overall clinical condition remains the same patient is still not arousable at this time. 02/06/2021 patient is off sedation for about 2-3 days. Patient is presently on Tobrex remains intubated is undergoing hemodialysis as scheduled patient is on cleveprex for blood pressure. 02/07/2021 patient remains on ventilator support her, there is no neurological recovery patient had a repeat CT is showing attenuation in bilateral basal ganglia. Neurologist or had a lengthy discussion with the patient's family regarding neurological recovery which is expected to be poor. will undergo hemodialysis today ration blood sugars are significantly high increasing the dose of Levemir. Patient the need an extra 34 units of sliding scale. Patient blood sugars are high because of Decadron.w 02/08/2021 Patient remains on ventilator support patient is off sedation since 02/03/2021. Patient doesn't have any significant reasonable neurological recovery except for some brainstem reflexes patient does open eyes without any purposeful movements. Patient will undergo hemodialysis again tomorrow. Did discuss her situation in family service caseworker meeting. I believe it's appropriate to discuss her case in ethics committee as the care we are providing to the patient is futile care 02/09/2021 Patient remains unresponsive no significant change in her neurological status patient has been off sedation last few days. Patient has severe encephalopathy. Patient the is on Keppra at this time prophylactically no seizure activity. Patient is having nutritional support via entry to feedings. 02/10/2021 Patient does open her eyes. Doesn't have any purposeful movements patient remains on ventilatory support although patient is able to tolerate BiPAP very well patient has some bibasilar atelectasis on the chest x-ray patient continues to undergo hemodialysis as scheduled patient had hemodialysis yesterday patient is hemodynamically stable at this time patient blood sugars are well controlled on present regimen of 34 units of long-acting insulin along with sliding scale. Review of systems: Unable to obtain as patient is intubated All inpatient medications were reviewed and appropriate changes in these medications as dictated in the interval history and assessment and plan. Objective - Vital Signs Vital signs: Vital Signs Temp 97.9 F 02/10/21 08:00 Pulse 72 02/10/21 15:13 Resp 13 02/10/21 15:13 BP 165/70 02/10/21 13:00 Pulse Ox 97 02/10/21 15:00 Intake & Output 02/09/21 02/10/21 02/10/21 18:59 06:59 18:59 Intake Total 766 754 663 Output Total 2200 0 Balance -1434 754 663 Weight 103.6 kg 103.6 kg Intake: IV 156 156 233 0.9 @ 10ml/hr 120 120 100 levETIRAcetam IV 500 mg 100 In Sodium Chloride 0.9% 100 ml @ 400 mls/hr IVPB Q12HR [facility] Rx#:[id number] pressure bag 36 36 33 Tube Feeding 510 408 306 Other 100 190 124 Output: Urine 0 Stool 200 Hemodialysis 2000 Other: Voiding Method Incontinent Incontinent Incontinent # Voids 0 ABP, PAP, CO, CI - Last Documented Arterial Blood Pressure 165/63 - Exam PHYSICAL EXAMINATION: GENERAL: Patient is intubated sedated, does have an NG tube with some bloody drainage from the NG tube. Patient has a central line and arterial line HEENT: Pupils are round and and constricted at this time because of propofol. EOMI. No scleral icterus. No conjunctival pallor. Normocephalic, atraumatic. No pharyngeal erythema. No thyromegaly. CARDIOVASCULAR: S1 and S2 present. No murmurs, rubs, or gallops. PULMONARY: Chest is clear to auscultation, no wheezing or crackles. ABDOMEN: Soft, nontender, nondistended, normoactive bowel sounds. No palpable organomegaly. MUSCULOSKELETAL: No joint swelling or deformity. EXTREMITIES: No cyanosis, clubbing, bilateral pedal edema which is chronic NEUROLOGICAL: Intubated sedated but does have brainstem reflexes, patient doesn't have cough reflex is breathing over the ventilator, does have gag reflex. SKIN: Stage I and 2 ulcers which doesn't appear to be infected Note: Because of COVID 19 isolation, some of the history and physical exam findings are indirect and obtained from nursing staff, and other physician examinations to avoid unnecessary contact with the patient. - Labs CBC & Chem 7: 02/10/21 03:45 02/10/21 03:45 Labs: Abnormal Lab Results - Last 24 Hours (Table) 02/09/21 02/09/21 02/10/21 Range/Units 17:35 23:18 03:45 WBC 16.9 H (3.8-10.6) k/uL RBC 3.65 L (3.80-5.40) m/uL Hgb 10.8 L (11.4-16.0) gm/dL MCHC 30.5 L (31.0-37.0) g/dL RDW 17.1 H (11.5-15.5) % Fibrinogen (200-500) mg/dL D-Dimer (<0.60) mg/L FEU ABG pO2 (83-108) mmHg ABG HCO3 (21-25) mmol/L ABG Total CO2 (19-24) mmol/L ABG O2 Saturation (94-97) % Sodium (137-145) mmol/L Chloride (98-107) mmol/L BUN (7-17) mg/dL Creatinine (0.52-1.04) mg/dL Glucose (74-99) mg/dL POC Glucose (mg/dL) 173 H 163 H (75-99) mg/dL Ferritin (10.0-291.0) ng/mL Creatine Kinase (30-135) U/L C-Reactive Protein (<10.0) mg/L 02/10/21 02/10/21 02/10/21 Range/Units 03:45 03:45 05:31 WBC (3.8-10.6) k/uL RBC (3.80-5.40) m/uL Hgb (11.4-16.0) gm/dL MCHC (31.0-37.0) g/dL RDW (11.5-15.5) % Fibrinogen 634 H (200-500) mg/dL D-Dimer 4.94 H (<0.60) mg/L FEU ABG pO2 134 H (83-108) mmHg ABG HCO3 29 H (21-25) mmol/L ABG Total CO2 30 H (19-24) mmol/L ABG O2 Saturation 99.5 H (94-97) % Sodium 132 L (137-145) mmol/L Chloride 95 L (98-107) mmol/L BUN 53 H (7-17) mg/dL Creatinine 3.58 H (0.52-1.04) mg/dL Glucose 150 H (74-99) mg/dL POC Glucose (mg/dL) (75-99) mg/dL Ferritin 1308.2 H (10.0-291.0) ng/mL Creatine Kinase 22 L (30-135) U/L C-Reactive Protein 14.5 H (<10.0) mg/L 02/10/21 02/10/21 Range/Units 06:03 11:08 WBC (3.8-10.6) k/uL RBC (3.80-5.40) m/uL Hgb (11.4-16.0) gm/dL MCHC (31.0-37.0) g/dL RDW (11.5-15.5) % Fibrinogen (200-500) mg/dL D-Dimer (<0.60) mg/L FEU ABG pO2 (83-108) mmHg ABG HCO3 (21-25) mmol/L ABG Total CO2 (19-24) mmol/L ABG O2 Saturation (94-97) % Sodium (137-145) mmol/L Chloride (98-107) mmol/L BUN (7-17) mg/dL Creatinine (0.52-1.04) mg/dL Glucose (74-99) mg/dL POC Glucose (mg/dL) 169 H 169 H (75-99) mg/dL Ferritin (10.0-291.0) ng/mL Creatine Kinase (30-135) U/L C-Reactive Protein (<10.0) mg/L Assessment and Plan Plan: -Cardiorespiratory arrest leading to respiratory failure: Secondary to ventricular tachycardia . Patient had multiple EEGs and computed tomography scan of the brain all of which showed significant anoxic brain injury. Patient is off sedation since no significant improvement in mental status off sedation. Patient has significant anoxic brain injury over all prognosis is poor, possibility of reasonable neurological recovery is low same thing was discussed with the family . For now family wants to continue the care. Patient's family declined a tracheostomy and PEG tube placement at this time. Prolonged intubation can lead to more infections. -Acute hypoxic respiratory failure leading to anoxic brain injury. -Volume overload: Secondary to end-stage renal disease nephrology evaluated the patient. Patient is undergoing hemodialysis as scheduled -Fever on admission: Last fever was 02/06/2021 Most probably secondary to cardiorespiratory arrest blood cultures so far are negative except for sputum cultures showing gram-positive bacilli and cocci which is usually oral cavity bacteria, patient is presently not on any antibiotics at this time -Recent covid 19 infection and month of October, patient had a repeat Covid 19 test that was positive again this is probably not a new infection but residual inactive RNA fragments. -End-stage renal disease, dialysis dependent -Type 2 diabetes mellitus : Blood sugars are better controlled continue with present regimen History of DVT patient had a paratracheal hematoma but from attempted central line placement because of which Eliquis is being held at this time. -Hypertension -Diabetic peripheral neuropathy -bilateral lower extremity ulcers doesn't appear to have cellulitis but does have chronic lymphedema Patient prognosis is extremely poor. Family will visit her tomorrow we'll decide on hospice and comfort care tomorrow
[2021-02-10 17:59] LABS: Glucose,Whole Blood 208 mg/dL (75-99)
[2021-02-10] MEDS: amLODIPine 10 MG TAB PO SCH (21:09)
[2021-02-10 23:39] LABS: Glucose,Whole Blood 190 mg/dL (75-99)
[2021-02-11] MEDS: INSULIN ASPART (NovoLOG) 100 UNIT/ML VIAL SQ SCH ×4 (01:01→17:39)
[2021-02-11 04:44] LABS: ABG Base Excess 2.8 mmol/L; ABG HCO3 27 mmol/L (21-25); ABG Oxygen Saturation 99.4 % (94-97); ABG PCO2 41 mmHg (35-45); ABG PH 7.43 (7.35-7.45); ABG PO2 122 mmHg (83-108); ABG TCO2 28 mmol/L (19-24); Allen Test Performed? Yes
[2021-02-11 05:14] LABS: Anisocytosis Slight; Basophils % (A) 0 %; Eosinophils % (A) 0 %; HGB 10.8 gm/dL (11.4-16.0); Hypochromasia Slight; Lymphocytes # (A) 1.1 k/uL (1.0-4.8); Lymphocytes % (A) 9 %; MCH 31.3 pg (25.0-35.0); MCHC 32.8 g/dL (31.0-37.0); MCV 95.7 fL (80.0-100.0); Mean Platelet Volume 8.1; Monocytes # (A) 0.6 k/uL (0-1.0); Monocytes % (A) 5 %; Neutrophils # (A) 9.8 k/uL (1.3-7.7); Neutrophils % (A) 85 %; Platelet Count 373 k/uL (150-450); RBC 3.45 m/uL (3.80-5.40); RDW 16.4 % (11.5-15.5); WBC 11.5 k/uL (3.8-10.6)
[2021-02-11 05:24] LABS: Albumin 2.6 g/dL (3.5-5.0); Potassium 4.1 mmol/L (3.5-5.1); Total Bilirubin 0.2 mg/dL (0.2-1.3); Total Protein 5.4 g/dL (6.3-8.2)
[2021-02-11 05:51] LABS: Glucose,Whole Blood 187 mg/dL (75-99)
[2021-02-11] MEDS: INSULIN DETEMIR (LEVEMIR) 100 UNIT/ML SYR SQ SCH (06:13)
[2021-02-11] MEDS: CALCIUM ACETATE 667 MG TAB PO SCH ×2 (06:14→17:38)
[2021-02-11 06:48] LABS: D-Dimer 4.86 mg/L FEU (<0.60)
[2021-02-11] MEDS: ALBUTEROL HFA INHALER INHALATION PRN ×5 (07:57→22:44)
--- NOTE | 2021-02-11 09:31 | P.PN ---
Subjective Progress Note Date: 02/11/21 On 02/07/2021 on seeing the patient for a follow-up. The patient is post cardiac arrest and hypoxic encephalopathy. The patient remains intubated on a mechanical ventilator. The patient is currently off sedation and neurologic function of being monitored very closely. The patient has been off sedation since 02/03/2021. Currently on assist control mode at the rate of 14 with a tidal volume of 350 and FiO2 of 30% with a PEEP of 5. The patient's chest x-ray is showing infiltrates bilaterally more significant in the left lower lobe. Blood gases is pending for now. Dr Fernandez had a discussion was done with the family earlier prior to l and the plan was to proceed with tracheostomy tube insertion for long-term need of ventilatory support. The patient meanwhile is receiving enteral feeding for nutritional support and the patient is currently on Nepro 34 mL an hour per goal. The patient is requiring dialysis intermittently. That the patient has an incisional disease and she has been on dialysis on outpatient basis 3 times a week. The patient has nephrology is on the case. The Cleviprex was discontinued and the patient's blood pressure is being monitored. Noted the patient has multiple medical problems and comorbidities. The patient has end-stage renal disease. The patient undergoes hemodialysis. The patient also has coronary artery disease, diabetes mellitus type 2 and the patient's had V. tach and cardiac arrest. The family initiated a CPR according to the history as the patient was found to be unresponsive. The patient got defibrillated and CPR was continued by EMS. The downtime was estimated to be at least 20 minutes. The patient has been in intensive care unit since 01/30/2021. He is post V. fib arrest. He is also on Norvasc 10 mg a day for blood pressure control. He is on Keppra for any seizure activity, prophylaxis. The patient is on aspirin. The patient is off sedation. The patient is on Decadron 6 mg IV scheduled. Other comorbidities include diabetic peripheral neuropathy, chronic lower extremity ulcers and onset cellulitis and the patient has chronic lymphedema. I further can't understand the patient's family is interested in transferring her to another facility. Meanwhile, the patient's blood work today showed a white cell count 15.4 with a hemoglobin of 9.7 and the platelet count of 371. Creatinine is 86 with a creatinine of 6.1 and sodium level of 132. The chest x-ray from today is essentially clear. The patient's ET tube is in a good location. The patient has a G-tube in place. No significant pulmonary infiltration. The patient is tolerating her enteral feeding for nutritional support. Her last session of hemodialysis was on Sunday which is 3 days ago. No seizure activity has been noted. The patient remains on Decadron 6 mg IV every 24 hours. 02/08/2021, the patient remains off sedation. There is a case of hypoxic encephalopathy and the patient has not shown any signs of neurologic recovery. No seizure activity has been noted. I discussed the case with neurology and Dr. Galvez has also spoken to the family in this regard. The patient remains off sedation. Neurologic functions are quite impaired. She does have a weak cough and gag. She is completely unresponsive to any verbal stimulation. He does not withdraw to painful stimulation. She is currently on assist control mode at the rate of 14 with a tidal volume of 350 and FiO2 of 30% with a PEEP of 5. Yesterday, I give the patient a breathing trial with a pressure support of 10 and PEEP of 5. She was able to tolerate that for a total of 10 hours and ultimately she had to be placed back on assist control mode of ventilation yesterday. The patient underwent also dialysis yesterday. Nephrology remains on the case. The patient is still off Cleviprex Blood pressure is currently at 157/64. The patient is also on Norvasc 10 mg by mouth daily in addition to hydralazine 100 mg by mouth 3 times a day regarding blood pressure control. Cardiac rhythm is sinus. The blood gases from today showed a pH of 7.44 with a pCO2 of 42 and pO2 of 130 and this was done on assist control mode of ventilation. Chest x-ray still pending for now. Meanwhile, the rest of the blood work include a CBC shows a white cell count of 18 with a hemoglobin of 10.7 and the platelets of 436. BUN is at 58 with a creatinine of 4.1 and the patient's potassium level is at 3.8. The patient is receiving enteral feeding for nutritional support and the patient is currently on Nepro running at the rate of 34 mL an hour. She remains on Decadron 6 mg IV every 24 hours been no seizure activity has been noted. No other significant events overnight. She remains on [facility]. Neurologist on the case. 02/09/2021, neurologically unchanged and the patient is unresponsive. She has a cough and a gag on today's evaluation. She is also having some respiratory se cretions and she requires suctioning every shift. Meanwhile, the patient is currently on a pressure support mode of ventilation with a pressure support of 10 and a PEEP of 5. She was able to tolerate this setting for the past 24 hours and her current FiO2 is at 30%. She is hemodynamically stable. She is undergoing hemodialysis today. No neurological recovery. Discussed the case with neurology. She is neurologically impaired and she has anoxic encephalopathy. No seizure activity has been noted and the patient remains on Keppra. She is receiving enteral feeding for nutritional support through her PEG tube. She has adequate blood pressure control and the patient is hemodynamically stable for now. Cardiac rhythm is sinus for now. 2020, neurologically the patient remains unchanged and we have not seen any signs of neurologic recovery this patient over the past several days. Neurology is closely monitoring her progress and I have been talking to Dr. barros and based on our conversation there is no signs of any neurologic progress and recovery. Meanwhile, I have switched this patient to a pressure support mode of ventilation and she remains on a pressure support of 10 and she is also a PEEP of 5. She is doing very well with an FiO2 of 30%. No signs of any respiratory distress pH is able to generate adequate tidal volumes. No tachypnea. No significant respiratory secretions. The chest x-ray from today is not showing any acute abnormalities and the lungs are well expanded. No pulmonary infiltrates. ET tube is in a good location. There may be some left basilar atelectasis compared to yesterday. Otherwise, the patient remains hemodynamically stable. The patient continues to receive enteral feeding and nutritional support. The patient is able to tolerate her tube feeds. Cardiac rhythm is sinus. No fever. No chills. Her dialysis was done yesterday and a total of 2 L of ultrafiltration was done. The patient does not make any urine for now. The patient is also on 35 units of Levemir the patient is on a sliding scale coverage. She is receiving enteral feeding in the form of Nepro at the rate of 34 mL an hour which is currently at goal. She remains on 6 mg of IV Decadron for 24 hours. She is also on Keppra. No seizure activity has been noted. 02/11/2021, neurologically, the patient remains unresponsive. She opens her eyes spontaneously. She has a positive cough and a gag. Does not track. Does not follow commands. Does not withdraw to painful stimulation. No purposeful activity. Neurologic functions are unchanged. She remains on pressure support mode of ventilation at the pressure support of 10 and a PEEP of 5. She has been on this most for more than 48 hours. FiO2 still at 30%. No signs of any respiratory distress. No orotracheal secretions. She is currently undergoing dialysis and the plan is to change her CODE STATUS to comfort care measures or even hospice and subsequently once the decision is made I'm going to extubate the patient can I think she was going to breathe spontaneously for a while postextubation. Her cardiac rhythm is sinus. Hemodynamically stable. She remains on Levemir insulin 35 units along with a sliding scale coverage. She is tolerating enteral feeding for nutritional support through an NG tube. No seizure activity has been noted. She remains on Decadron 6 mg IV every 24 hours. Hemodynamically, she is stable. Her blood work, no major abnormalities have been noted. White cell count of 11.5 with a hemoglobin of 10.8. Her d- dimer is at 4.8. Morning blood gases showed a pH of 7.43 with a pCO2 of 41 and pO2 of 122. Rest of the blood work shows a BUN of 74 with a creatinine of 4.7. Electrolytes are normal. LDH from yesterday was 578. The chest x-ray from today showing no difficulty in abnormalities. Orotracheal tube remains in adequate positioning and the patient also has an NG tube in place. She does have cardiomegaly. Objective - Vital Signs Vital signs: Vital Signs Temp 97.8 F 02/11/21 04:00 Pulse 64 02/11/21 07:00 Resp 11 L 02/11/21 07:00 BP 159/73 02/10/21 18:00 Pulse Ox 98 02/11/21 07:00 Intake & Output 02/10/21 02/11/21 02/11/21 18:59 06:59 18:59 Intake Total 760 844 47 Output Total 0 0 200 Balance 760 844 -153 Weight 103.6 kg 108.8 kg Intake: IV 262 256 13 0.9 @ 10ml/hr 120 120 10 levETIRAcetam IV 500 mg 100 100 In Sodium Chloride 0.9% 100 ml @ 400 mls/hr IVPB Q12HR [facility] Rx#:[id number] pressure bag 42 36 3 Tube Feeding 374 408 34 Other 124 180 Output: Urine 0 0 Stool 200 Other: Voiding Method Incontinent Incontinent Incontinent # Voids 0 ABP, PAP, CO, CI - Last Documented Arterial Blood Pressure 141/50 - Exam Currently intubated, and mechanically ventilated. Currently on no sedation. The patient remains completely unresponsive. Orotracheal and orogastric tube are both in place and the patient is on spontaneous breathing with a pressure support of 10 and a PEEP of 5. HEENT examination is grossly unremarkable. Neck supple. Full range of motion. No adenopathy thyromegaly or neck vein distention. Cardiovascular examination reveals regular rhythm rate. S1-S2 normal. No S3 or S4. No discernible murmur noted. Heart sounds are distant. Lungs reveal diffuse bilateral rhonchi and crackles. There are no wheezes. Breath sounds are equal bilaterally. Abdomen soft bowel sounds are heard. No masses or tenderness. Extremities are intact. No cyanosis or clubbing. There is bilateral lower extremity edema. Skin is without rash or lesion. Neurologic examination is unchanged. Off of sedation, she opens her eyes, but there is no purposeful movements. Pupils are equal and symmetrical. The p atient has a preferential gaze to the left. No nystagmus. No clonus. Does not withdraw to any painful stimulation. Reflexes are diminished in all 4 extremities. No facial asymmetry. - Labs CBC & Chem 7: 02/11/21 03:45 02/11/21 03:45 Labs: Abnormal Lab Results - Last 24 Hours (Table) 02/10/21 02/10/21 02/10/21 Range/Units 03:45 11:08 17:58 WBC (3.8-10.6) k/uL RBC (3.80-5.40) m/uL Hgb (11.4-16.0) gm/dL Hct (34.0-46.0) % RDW (11.5-15.5) % Neutrophils # (1.3-7.7) k/uL Fibrinogen (200-500) mg/dL D-Dimer (<0.60) mg/L FEU ABG pO2 (83-108) mmHg ABG HCO3 (21-25) mmol/L ABG Total CO2 (19-24) mmol/L ABG O2 Saturation (94-97) % Sodium (137-145) mmol/L Chloride (98-107) mmol/L BUN (7-17) mg/dL Creatinine (0.52-1.04) mg/dL Glucose (74-99) mg/dL POC Glucose (mg/dL) 169 H 208 H (75-99) mg/dL Ferritin 1308.2 H (10.0-291.0) ng/mL Total Protein (6.3-8.2) g/dL Albumin (3.5-5.0) g/dL 02/10/21 02/11/21 02/11/21 Range/Units 23:38 03:45 03:45 WBC 11.5 H (3.8-10.6) k/uL RBC 3.45 L (3.80-5.40) m/uL Hgb 10.8 L (11.4-16.0) gm/dL Hct 33.0 L (34.0-46.0) % RDW 16.4 H (11.5-15.5) % Neutrophils # 9.8 H (1.3-7.7) k/uL Fibrinogen 532 H (200-500) mg/dL D-Dimer 4.86 H (<0.60) mg/L FEU ABG pO2 (83-108) mmHg ABG HCO3 (21-25) mmol/L ABG Total CO2 (19-24) mmol/L ABG O2 Saturation (94-97) % Sodium (137-145) mmol/L Chloride (98-107) mmol/L BUN (7-17) mg/dL Creatinine (0.52-1.04) mg/dL Glucose (74-99) mg/dL POC Glucose (mg/dL) 190 H (75-99) mg/dL Ferritin (10.0-291.0) ng/mL Total Protein (6.3-8.2) g/dL Albumin (3.5-5.0) g/dL 02/11/21 02/11/21 02/11/21 Range/Units 03:45 04:40 05:50 WBC (3.8-10.6) k/uL RBC (3.80-5.40) m/uL Hgb (11.4-16.0) gm/dL Hct (34.0-46.0) % RDW (11.5-15.5) % Neutrophils # (1.3-7.7) k/uL Fibrinogen (200-500) mg/dL D-Dimer (<0.60) mg/L FEU ABG pO2 122 H (83-108) mmHg ABG HCO3 27 H (21-25) mmol/L ABG Total CO2 28 H (19-24) mmol/L ABG O2 Saturation 99.4 H (94-97) % Sodium 131 L (137-145) mmol/L Chloride 94 L (98-107) mmol/L BUN 74 H (7-17) mg/dL Creatinine 4.73 H (0.52-1.04) mg/dL Glucose 192 H (74-99) mg/dL POC Glucose (mg/dL) 187 H (75-99) mg/dL Ferritin (10.0-291.0) ng/mL Total Protein 5.4 L (6.3-8.2) g/dL Albumin 2.6 L (3.5-5.0) g/dL Assessment and Plan Plan: 1 Cardiac arrest most likely secondary to cardiac arrhythmia initial rhythm was ventricular fibrillation upon EMS arrival. The patient came into the hospital on 01/30/2021 patient is in the intensive care unit since. The patient has obvious signs of anoxic encephalopathy. Estimated down time of the time of the cardiac arrest was around 20 minutes. The patient currently is hemodynamically stable on no pressors 2 Acute hypoxic respiratory failure secondary to above, with significant anoxic brain injury. Overall respiratory status is stable and the patient is on a pressure support of 10 and a PEEP of 5 with an FiO2 of 30% with a stable chest x-ray. Currently she is still on Decadron. She has a positive cough and a gag. Unable to extubate because of her underlying anoxic encephalopathy. She will likely not be able to protect her respiratory secretions. Awaiting a final CODE STATUS prior to extubation. 3 unresponsiveness secondary to anoxic encephalopathy 4 Anoxic brain injury and metabolic encephalopathy secondary to cardiac arrest. The patient is currently off sedation and the patient is not showing any significant neurologic recovery. 5 Type 2 diabetes. The patient is currently on Levemir insulin at 35 units along with SS coverage. 6 Benign essential hypertension. 7 end stage renal disease on hemodialysis. The patient is undergoing episodic dialysis amount currently undergoing hemodialysis , currently being dialyzed 8 History of carotid artery disease. 9 History of DVT 10 History of diabetic peripheral neuropathy. 11 History of cardiac arrhythmia requiring cardiac ablation. 12 Chronic lymphedema and cellulitis of both lower extremities. 13 History of irritable bowel syndrome. 14 History of covid 19 infection in October of 2020, and the patient also tested positive on 01/28/2021. 15 Possible right paratracheal hematoma from attempted central line placement, stable hemoglobin, chest x-ray findings and is also stable. Plan: Continue ventilator support no plans for extubation until the patient gives us a final CODE STATUS. Chest x-rays stable for now. I do not think the patient will do well if extubated on a long-term basis. I do not think she has enough neurologic function to maintain and perform adequate pulmonary toileting and she is probably going to breathe on her own for a while with subsequent respiratory insufficiency and failure. Family is declined tracheostomy tube insertion and PEG tube insertion Neurologist on the case regarding anoxic encephalopathy , had several discussions with neurology. No obvious neurologic recovery the patient's long- term prognosis poor Continue Keppra Started patient on Lantus 35 units along with NovoLog sliding scale coverage and monitor blood sugar control The prognosis extremely poor Continue enteral feeding for nutritional support Overall prognosis extremely poor baseline above-mentioned comorbidities. We'll continue to follow. Family will make a decision about extubation and hospice care today. Critical care eval > 30 min Time with Patient: Greater than 30
--- NOTE | 2021-02-11 10:31 | P.PN ---
Subjective Patient is seen in follow-up for end-stage renal disease. She is maintained on hemodialysis on Sunday schedule. Intubated. On 30% FiO2. Severe anoxic brain injury. Remains off sedation. Tolerating dialysis well. Vital signs are stable. Intubated. Exam discussed with the nurse. Objective - Vital Signs Vital signs: Vital Signs Temp 97.8 F 02/11/21 04:00 Pulse 64 02/11/21 07:00 Resp 11 L 02/11/21 07:00 BP 159/73 02/10/21 18:00 Pulse Ox 98 02/11/21 07:00 Intake & Output 02/10/21 02/11/21 02/11/21 18:59 06:59 18:59 Intake Total 760 844 218 Output Total 0 0 200 Balance 760 844 18 Weight 103.6 kg 108.8 kg Intake: IV 262 256 52 0.9 @ 10ml/hr 120 120 40 levETIRAcetam IV 500 mg 100 100 In Sodium Chloride 0.9% 100 ml @ 400 mls/hr IVPB Q12HR [facility] Rx#:[id number] pressure bag 42 36 12 Tube Feeding 374 408 136 Other 124 180 30 Output: Urine 0 0 Stool 200 Other: Voiding Method Incontinent Incontinent Incontinent # Voids 0 ABP, PAP, CO, CI - Last Documented Arterial Blood Pressure 141/50 - Labs CBC & Chem 7: 02/11/21 03:45 02/11/21 03:45 Labs: Abnormal Lab Results - Last 24 Hours (Table) 02/10/21 02/10/21 02/10/21 Range/Units 11:08 17:58 23:38 WBC (3.8-10.6) k/uL RBC (3.80-5.40) m/uL Hgb (11.4-16.0) gm/dL Hct (34.0-46.0) % RDW (11.5-15.5) % Neutrophils # (1.3-7.7) k/uL Fibrinogen (200-500) mg/dL D-Dimer (<0.60) mg/L FEU ABG pO2 (83-108) mmHg ABG HCO3 (21-25) mmol/L ABG Total CO2 (19-24) mmol/L ABG O2 Saturation (94-97) % Sodium (137-145) mmol/L Chloride (98-107) mmol/L BUN (7-17) mg/dL Creatinine (0.52-1.04) mg/dL Glucose (74-99) mg/dL POC Glucose (mg/dL) 169 H 208 H 190 H (75-99) mg/dL Total Protein (6.3-8.2) g/dL Albumin (3.5-5.0) g/dL 02/11/21 02/11/21 02/11/21 Range/Units 03:45 03:45 03:45 WBC 11.5 H (3.8-10.6) k/uL RBC 3.45 L (3.80-5.40) m/uL Hgb 10.8 L (11.4-16.0) gm/dL Hct 33.0 L (34.0-46.0) % RDW 16.4 H (11.5-15.5) % Neutrophils # 9.8 H (1.3-7.7) k/uL Fibrinogen 532 H (200-500) mg/dL D-Dimer 4.86 H (<0.60) mg/L FEU ABG pO2 (83-108) mmHg ABG HCO3 (21-25) mmol/L ABG Total CO2 (19-24) mmol/L ABG O2 Saturation (94-97) % Sodium 131 L (137-145) mmol/L Chloride 94 L (98-107) mmol/L BUN 74 H (7-17) mg/dL Creatinine 4.73 H (0.52-1.04) mg/dL Glucose 192 H (74-99) mg/dL POC Glucose (mg/dL) (75-99) mg/dL Total Protein 5.4 L (6.3-8.2) g/dL Albumin 2.6 L (3.5-5.0) g/dL 02/11/21 02/11/21 Range/Units 04:40 05:50 WBC (3.8-10.6) k/uL RBC (3.80-5.40) m/uL Hgb (11.4-16.0) gm/dL Hct (34.0-46.0) % RDW (11.5-15.5) % Neutrophils # (1.3-7.7) k/uL Fibrinogen (200-500) mg/dL D-Dimer (<0.60) mg/L FEU ABG pO2 122 H (83-108) mmHg ABG HCO3 27 H (21-25) mmol/L ABG Total CO2 28 H (19-24) mmol/L ABG O2 Saturation 99.4 H (94-97) % Sodium (137-145) mmol/L Chloride (98-107) mmol/L BUN (7-17) mg/dL Creatinine (0.52-1.04) mg/dL Glucose (74-99) mg/dL POC Glucose (mg/dL) 187 H (75-99) mg/dL Total Protein (6.3-8.2) g/dL Albumin (3.5-5.0) g/dL Assessment and Plan Plan: Assessment: 1. End-stage renal disease maintained on hemodialysis on Sunday schedule. 2. Status post cardiopulmonary arrest. 3. Anoxic brain injury. 4. Hypertension with chronic kidney disease. Exacerbated by steroids. 5. Chronic kidney disease mineral bone disease maintained on PhosLo. 6. Diabetes mellitus. 7. COVID-19 positive. On steroids. Plan: Currently seen while undergoing hemodialysis. Family refused tracheostomy and PEG tube placement. Overall prognosis guarded. Possibly going comfort care today.
[2021-02-11] MEDS: PANTOPRAZOLE 40 MG/10 ML VIAL IVP SCH ×2 (10:36→21:45)
[2021-02-11] MEDS: cloNIDine HCL 0.1 MG TAB PO SCH ×3 (10:37→23:13)
[2021-02-11] MEDS: ASPIRIN 81 MG PO SCH (10:37)
[2021-02-11] MEDS: DEXAMETHASONE SOD PHOSPHATE 10 MG/ML 1 ML VIAL IV SCH (10:37)
[2021-02-11] MEDS: hydrALAZINE HCL 50 MG TAB PO SCH ×3 (10:37→23:13)
[2021-02-11] MEDS: levETIRAcetam IV 500 MG in SODIUM CHLORIDE 0.9% 100 ML IVPB SCH ×2 (10:40→21:45)
[2021-02-11] MEDS: CHLORHEXIDINE GLUCONATE 15 ML CUP MUCOUS MEM SCH ×2 (10:41→21:45)
--- NOTE | 2021-02-11 11:15 | P.PN ---
Subjective Progress Note Date: 02/11/21 CHIEF COMPLAINT: Cardiac arrest HISTORY OF PRESENT ILLNESS: Patient is currently intubated and on mechanical ventilation in the ICU. Surgical service is following in regards to possible tracheostomy and PEG tube placement. At this time family has declined trach and PEG. Patient has been off sedation. She remains unresponsive. She is followed by neurology. She is getting hemodialysis this morning. Afebrile WBC 11.5 PHYSICAL EXAM: VITAL SIGNS: Reviewed. GENERAL: Well-developed in no acute distress. HEENT: No sclera icterus. Extraocular movements grossly intact. Moist buccal mucosa. Head is atraumatic, normocephalic. ABDOMEN: Soft. Nondistended. Nontender. NEUROLOGIC: Intubated. Nonresponsive ASSESSMENT: 1. Cardiac arrest 2. Acute hypoxic respiratory failure 3. anoxic brain injury 4. History of DVT maintained on Eliquis 5. End-stage renal disease 6. History of Covid 19 infection in October 2020 PLAN: -Family has declined tracheostomy and PEG tube placement -Surgical service will remain on standby -Continue supportive care -Continue ICU management -Awaiting family's decision about possible hospice care Physician V[employer] Person note has been reviewed by physician. Signing provider agrees with the documented findings, assessment, and plan of care. Objective - Vital Signs Vital signs: Vital Signs Temp 97.6 F 02/11/21 08:00 Pulse 70 02/11/21 11:00 Resp 15 02/11/21 11:00 BP 132/68 02/11/21 11:00 Pulse Ox 98 02/11/21 11:00 Intake & Output 02/10/21 02/11/21 02/11/21 18:59 06:59 18:59 Intake Total 760 844 265 Output Total 0 0 200 Balance 760 844 65 Weight 103.6 kg 108.8 kg Intake: IV 262 256 65 0.9 @ 10ml/hr 120 120 50 levETIRAcetam IV 500 mg 100 100 In Sodium Chloride 0.9% 100 ml @ 400 mls/hr IVPB Q12HR [facility] Rx#:[id number] pressure bag 42 36 15 Tube Feeding 374 408 170 Other 124 180 30 Output: Urine 0 0 Stool 200 Other: Voiding Method Incontinent Incontinent Incontinent # Voids 0 ABP, PAP, CO, CI - Last Documented Arterial Blood Pressure 165/56 - Labs CBC & Chem 7: 02/11/21 03:45 04/16/21 03:45 Labs: Abnormal Lab Results - Last 24 Hours (Table) 02/10/21 02/10/21 02/11/21 Range/Units 17:58 23:38 03:45 WBC 11.5 H (3.8-10.6) k/uL RBC 3.45 L (3.80-5.40) m/uL Hgb 10.8 L (11.4-16.0) gm/dL Hct 33.0 L (34.0-46.0) % RDW 16.4 H (11.5-15.5) % Neutrophils # 9.8 H (1.3-7.7) k/uL Fibrinogen (200-500) mg/dL D-Dimer (<0.60) mg/L FEU ABG pO2 (83-108) mmHg ABG HCO3 (21-25) mmol/L ABG Total CO2 (19-24) mmol/L ABG O2 Saturation (94-97) % Sodium (137-145) mmol/L Chloride (98-107) mmol/L BUN (7-17) mg/dL Creatinine (0.52-1.04) mg/dL Glucose (74-99) mg/dL POC Glucose (mg/dL) 208 H 190 H (75-99) mg/dL Total Protein (6.3-8.2) g/dL Albumin (3.5-5.0) g/dL 02/11/21 02/11/21 02/11/21 Range/Units 03:45 03:45 04:40 WBC (3.8-10.6) k/uL RBC (3.80-5.40) m/uL Hgb (11.4-16.0) gm/dL Hct (34.0-46.0) % RDW (11.5-15.5) % Neutrophils # (1.3-7.7) k/uL Fibrinogen 532 H (200-500) mg/dL D-Dimer 4.86 H (<0.60) mg/L FEU ABG pO2 122 H (83-108) mmHg ABG HCO3 27 H (21-25) mmol/L ABG Total CO2 28 H (19-24) mmol/L ABG O2 Saturation 99.4 H (94-97) % Sodium 131 L (137-145) mmol/L Chloride 94 L (98-107) mmol/L BUN 74 H (7-17) mg/dL Creatinine 4.73 H (0.52-1.04) mg/dL Glucose 192 H (74-99) mg/dL POC Glucose (mg/dL) (75-99) mg/dL Total Protein 5.4 L (6.3-8.2) g/dL Albumin 2.6 L (3.5-5.0) g/dL 02/11/21 Range/Units 05:50 WBC (3.8-10.6) k/uL RBC (3.80-5.40) m/uL Hgb (11.4-16.0) gm/dL Hct (34.0-46.0) % RDW (11.5-15.5) % Neutrophils # (1.3-7.7) k/uL Fibrinogen (200-500) mg/dL D-Dimer (<0.60) mg/L FEU ABG pO2 (83-108) mmHg ABG HCO3 (21-25) mmol/L ABG Total CO2 (19-24) mmol/L ABG O2 Saturation (94-97) % Sodium (137-145) mmol/L Chloride (98-107) mmol/L BUN (7-17) mg/dL Creatinine (0.52-1.04) mg/dL Glucose (74-99) mg/dL POC Glucose (mg/dL) 187 H (75-99) mg/dL Total Protein (6.3-8.2) g/dL Albumin (3.5-5.0) g/dL
[2021-02-11 11:21] LABS: Glucose,Whole Blood 161 mg/dL (75-99)
--- NOTE | 2021-02-11 11:31 | XR ---
EXAMINATION TYPE: XR chest 1V portable DATE OF EXAM: 02/11/2021 Comparison: 02/10/2021 Clinical History: 65-year-old female ICU MANAGEMENT Findings: ET tube satisfactory. NG tube courses below the diaphragm. Heart remains enlarged. Diffuse interstiti al opacities persist as well as retrocardiac and left basilar opacity. Impression: Continued cardiomegaly and diffuse interstitial and left basilar opacities.
[2021-02-11] MEDS: levETIRAcetam 500 MG TAB PO SCH (11:39)
--- NOTE | 2021-02-11 15:42 | P.PN ---
Subjective Progress Note Date: 02/11/21 Principal diagnosis: 1. Cardiac arrest 2. Acute hypoxic respiratory failure 3. anoxic brain injury 65-year-old the female was discharged recently after she was treated for en cephalopathy related to hypoglycemia. Patient went shopping when she had a cardiorespiratory arrest, CPR was started and patient was later found to have went to her tachycardia, patient returned to sinus rhythm and 25 minutes subsequently was intubated and brought to emergency department. Patient did have history of ventricular tachycardia in the past patient was started on amiodarone at that time. Patient does have medical multiple medical problems including end-stage renal disease dialysis dependent chest x-ray showing significant infiltrate in the right lung mostly appears to be volume overload patient does have low-grade fever which can be secondary to cardiorespiratory arrest but patient was empirically started on Zosyn and patient is being admitted to ICU patient is presently intubated with FiO2 of 100% PEEP of 5 patient is breathing over the ventilator patient is on assist-control/volume controlled ventilation, on propofol patient does have conjunctival and corneal reflexes, does have gag reflex. No significant electrolyte abnormalities were appreciated. 02/11/2021 the patient remains unresponsive. She opens her eyes spontaneously. She has a positive cough and a gag. Does not follow commands. Neurologic functions are unchanged. She remains on pressure support mode of ventilation at the pressure support of 10 and a PEEP of 5. She has been on this most for more than 48 hours. FiO2 still at 30%. She is currently undergoing dialysis and the plan is to change her CODE STATUS to comfort care measures or even hospice and subsequently once the decision is made Patient remains in normal sinus rhythm. Hemodynamically stable. She remains on Levemir insulin 35 units along with a sliding scale coverage. She is tolerating enteral feeding for nutritional support through an NG tube. She remains on Decadron 6 mg IV every 24 hours. Hemodynamically, she is stable. Her blood work, no major abnormalities have been noted. White cell count of 11.5 with a hemoglobin of 10.8. Her d-dimer is at 4.8. Morning blood gases showed a pH of 7.43 with a pCO2 of 41 and pO2 of 122. Rest of the blood work shows a BUN of 74 with a creatinine of 4.7. Electrolytes are normal. LDH from yesterday was 578. The chest x-ray from today showing no difficulty in abnormalities. Orotracheal tube remains in adequate positioning and the patient also has an NG tube in place. Plan is comfort care versus hospice once family except there might Objective - Vital Signs Vital signs: Vital Signs Temp 97.6 F 02/11/21 08:00 Pulse 70 02/11/21 11:00 Resp 15 02/11/21 11:00 BP 132/68 02/11/21 11:00 Pulse Ox 98 02/11/21 11:00 Intake & Output 02/10/21 02/11/21 02/11/21 18:59 06:59 18:59 Intake Total 760 844 265 Output Total 0 0 200 Balance 760 844 65 Weight 103.6 kg 108.8 kg Intake: IV 262 256 65 0.9 @ 10ml/hr 120 120 50 levETIRAcetam IV 500 mg 100 100 In Sodium Chloride 0.9% 100 ml @ 400 mls/hr IVPB Q12HR [facility] Rx#:[id number] pressure bag 42 36 15 Tube Feeding 374 408 170 Other 124 180 30 Output: Urine 0 0 Stool 200 Other: Voiding Method Incontinent Incontinent Incontinent # Voids 0 ABP, PAP, CO, CI - Last Documented Arterial Blood Pressure 165/56 - Exam GENERAL: Patient is intubated sedated, does have an NG tube with some bloody d rainage from the NG tube. Patient has a central line and arterial line HEENT: Pupils are round and and constricted at this time because of propofol. EOMI. No scleral icterus. No conjunctival pallor. Normocephalic, atraumatic. No pharyngeal erythema. No thyromegaly. CARDIOVASCULAR: S1 and S2 present. No murmurs, rubs, or gallops. PULMONARY: Chest is clear to auscultation, no wheezing or crackles. ABDOMEN: Soft, nontender, nondistended, normoactive bowel sounds. No palpable organomegaly. MUSCULOSKELETAL: No joint swelling or deformity. EXTREMITIES: No cyanosis, clubbing, bilateral pedal edema which is chronic NEUROLOGICAL: Intubated sedated but does have brainstem reflexes, patient doesn' t have cough reflex is breathing over the ventilator, does have gag reflex. SKIN: Stage I and 2 ulcers which doesn't appear to be infected - Labs CBC & Chem 7: 02/11/21 03:45 02/11/21 03:45 Labs: Abnormal Lab Results - Last 24 Hours (Table) 02/10/21 02/10/21 02/11/21 Range/Units 17:58 23:38 03:45 WBC 11.5 H (3.8-10.6) k/uL RBC 3.45 L (3.80-5.40) m/uL Hgb 10.8 L (11.4-16.0) gm/dL Hct 33.0 L (34.0-46.0) % RDW 16.4 H (11.5-15.5) % Neutrophils # 9.8 H (1.3-7.7) k/uL Fibrinogen (200-500) mg/dL D-Dimer (<0.60) mg/L FEU ABG pO2 (83-108) mmHg ABG HCO3 (21-25) mmol/L ABG Total CO2 (19-24) mmol/L ABG O2 Saturation (94-97) % Sodium (137-145) mmol/L Chloride (98-107) mmol/L BUN (7-17) mg/dL Creatinine (0.52-1.04) mg/dL Glucose (74-99) mg/dL POC Glucose (mg/dL) 208 H 190 H (75-99) mg/dL Total Protein (6.3-8.2) g/dL Albumin (3.5-5.0) g/dL 02/11/21 02/11/21 02/11/21 Range/Units 03:45 03:45 04:40 WBC (3.8-10.6) k/uL RBC (3.80-5.40) m/uL Hgb (11.4-16.0) gm/dL Hct (34.0-46.0) % RDW (11.5-15.5) % Neutrophils # (1.3-7.7) k/uL Fibrinogen 532 H (200-500) mg/dL D-Dimer 4.86 H (<0.60) mg/L FEU ABG pO2 122 H (83-108) mmHg ABG HCO3 27 H (21-25) mmol/L ABG Total CO2 28 H (19-24) mmol/L ABG O2 Saturation 99.4 H (94-97) % Sodium 131 L (137-145) mmol/L Chloride 94 L (98-107) mmol/L BUN 74 H (7-17) mg/dL Creatinine 4.73 H (0.52-1.04) mg/dL Glucose 192 H (74-99) mg/dL POC Glucose (mg/dL) (75-99) mg/dL Total Protein 5.4 L (6.3-8.2) g/dL Albumin 2.6 L (3.5-5.0) g/dL 02/11/21 Range/Units 05:50 WBC (3.8-10.6) k/uL RBC (3.80-5.40) m/uL Hgb (11.4-16.0) gm/dL Hct (34.0-46.0) % RDW (11.5-15.5) % Neutrophils # (1.3-7.7) k/uL Fibrinogen (200-500) mg/dL D-Dimer (<0.60) mg/L FEU ABG pO2 (83-108) mmHg ABG HCO3 (21-25) mmol/L ABG Total CO2 (19-24) mmol/L ABG O2 Saturation (94-97) % Sodium (137-145) mmol/L Chloride (98-107) mmol/L BUN (7-17) mg/dL Creatinine (0.52-1.04) mg/dL Glucose (74-99) mg/dL POC Glucose (mg/dL) 187 H (75-99) mg/dL Total Protein (6.3-8.2) g/dL Albumin (3.5-5.0) g/dL Assessment and Plan Assessment: -Cardiorespiratory arrest leading to respiratory failure: Secondary to ventricular tachycardia . Patient had multiple EEGs and computed tomography scan of the brain all of which showed significant anoxic brain injury. Patient is off sedation since no significant improvement in mental status off sedation. Patient has significant anoxic brain injury over all prognosis is poor, possibility of reasonable neurological recovery is low same thing was dis cussed with the family . For now family wants to continue the care. Patient's family declined a tracheostomy and PEG tube placement at this time. Prolonged intubation can lead to more infections. -Acute hypoxic respiratory failure leading to anoxic brain injury. -Volume overload: Secondary to end-stage renal disease nephrology evaluated the patient. Patient is undergoing hemodialysis as scheduled -Fever on admission: Last fever was 02/06/2021 Most probably secondary to cardiorespiratory arrest blood cultures so far are negative except for sputum cultures showing gram-positive bacilli and cocci which is usually oral cavity bacteria, patient is presently not on any antibiotics at this time -Recent covid 19 infection and month of October, patient had a repeat Covid 19 test that was positive again this is probably not a new infection but residual inactive RNA fragments. -End-stage renal disease, dialysis dependent -Type 2 diabetes mellitus : Blood sugars are better controlled continue with present regimen History of DVT patient had a paratracheal hematoma but from attempted central l ine placement because of which Eliquis is being held at this time. -Hypertension -Diabetic peripheral neuropathy -bilateral lower extremity ulcers doesn't appear to have cellulitis but does have chronic lymphedema Patient prognosis is extremely poor. Family will decide on hospice and comfort care
[2021-02-11 17:29] LABS: Glucose,Whole Blood 151 mg/dL (75-99)
--- NOTE | 2021-02-11 18:57 | P.PN ---
Subjective Progress Note Date: 02/11/21 She was seen at bedside and per the patient nurse her condition continues to be the same. She continues to be off sedation. The family decided to get hospice involved. Objective - Vital Signs Vital signs: Vital Signs Temp 97.6 F 02/11/21 16:00 Pulse 69 02/11/21 18:00 Resp 16 02/11/21 18:00 BP 143/70 02/11/21 18:00 Pulse Ox 98 02/11/21 18:00 Intake & Output 02/10/21 02/11/21 02/11/21 18:59 06:59 18:59 Intake Total 760 844 954 Output Total 0 0 1900 Balance 760 844 -946 Weight 103.6 kg 108.8 kg 108.8 kg Intake: IV 262 256 156 0.9 @ 10ml/hr 120 120 120 levETIRAcetam IV 500 mg 100 100 In Sodium Chloride 0.9% 100 ml @ 400 mls/hr IVPB Q12HR [facility] Rx#:[id number] pressure bag 42 36 36 Tube Feeding 374 408 408 Hemodialysis 300 Other 124 180 90 Output: Urine 0 0 Stool 600 Hemodialysis 1300 Other: Voiding Method Incontinent Incontinent Incontinent # Voids 0 ABP, PAP, CO, CI - Last Documented Arterial Blood Pressure 167/66 - Exam GENERAL: The patient is lying in bed and is not in acute distress. Not on any sedation. LUNG: Intubated on sponatenous breathing. Not labored breathing. NEUROLOGICAL: Limited because of her condition. Not on any sedation Higher mental function: GCS 6 (E3,VT1,M2). Patient is non responisve and does verbalized or attempt to verbalize and does not follow commands. Cranial nerves: Would open eyes to painful stimuli. The pupils are round, equal (3mm bilaterally) and reactive to light. Positive corneal reflex bilaterally. +ve oculocephalic reflex. No facial weakness. Positive cough and gag reflex. On sponatenous breathing Motor: No movement noted sponateously or to painful stimuli. Decrease tone in bilateral upper extremities. Has lymphedema of bilateral lower extremities. To painful stimuli of the right upper extremity she has extensor posturing otherwise no movement in any of extremeties. Has no spontaneous movement. Cerebellum: Could not assess. Sensation: Could not assess. Reflexes (right/left): 1+ uppers. 0 in lowers and limited because of lymphedema. Plantars are mute bilaterally. - Labs CBC & Chem 7: 02/11/21 03:45 02/11/21 03:45 Labs: Abnormal Lab Results - Last 24 Hours (Table) 02/10/21 02/11/21 02/11/21 Range/Units 23:38 03:45 03:45 WBC 11.5 H (3.8-10.6) k/uL RBC 3.45 L (3.80-5.40) m/uL Hgb 10.8 L (11.4-16.0) gm/dL Hct 33.0 L (34.0-46.0) % RDW 16.4 H (11.5-15.5) % Neutrophils # 9.8 H (1.3-7.7) k/uL Fibrinogen 532 H (200-500) mg/dL D-Dimer 4.86 H (<0.60) mg/L FEU ABG pO2 (83-108) mmHg ABG HCO3 (21-25) mmol/L ABG Total CO2 (19-24) mmol/L ABG O2 Saturation (94-97) % Sodium (137-145) mmol/L Chloride (98-107) mmol/L BUN (7-17) mg/dL Creatinine (0.52-1.04) mg/dL Glucose (74-99) mg/dL POC Glucose (mg/dL) 190 H (75-99) mg/dL Total Protein (6.3-8.2) g/dL Albumin (3.5-5.0) g/dL 02/11/21 02/11/21 02/11/21 Range/Units 03:45 04:40 05:50 WBC (3.8-10.6) k/uL RBC (3.80-5.40) m/uL Hgb (11.4-16.0) gm/dL Hct (34.0-46.0) % RDW (11.5-15.5) % Neutrophils # (1.3-7.7) k/uL Fibrinogen (200-500) mg/dL D-Dimer (<0.60) mg/L FEU ABG pO2 122 H (83-108) mmHg ABG HCO3 27 H (21-25) mmol/L ABG Total CO2 28 H (19-24) mmol/L ABG O2 Saturation 99.4 H (94-97) % Sodium 131 L (137-145) mmol/L Chloride 94 L (98-107) mmol/L BUN 74 H (7-17) mg/dL Creatinine 4.73 H (0.52-1.04) mg/dL Glucose 192 H (74-99) mg/dL POC Glucose (mg/dL) 187 H (75-99) mg/dL Total Protein 5.4 L (6.3-8.2) g/dL Albumin 2.6 L (3.5-5.0) g/dL 02/11/21 02/11/21 Range/Units 11:18 17:28 WBC (3.8-10.6) k/uL RBC (3.80-5.40) m/uL Hgb (11.4-16.0) gm/dL Hct (34.0-46.0) % RDW (11.5-15.5) % Neutrophils # (1.3-7.7) k/uL Fibrinogen (200-500) mg/dL D-Dimer (<0.60) mg/L FEU ABG pO2 (83-108) mmHg ABG HCO3 (21-25) mmol/L ABG Total CO2 (19-24) mmol/L ABG O2 Saturation (94-97) % Sodium (137-145) mmol/L Chloride (98-107) mmol/L BUN (7-17) mg/dL Creatinine (0.52-1.04) mg/dL Glucose (74-99) mg/dL POC Glucose (mg/dL) 161 H 151 H (75-99) mg/dL Total Protein (6.3-8.2) g/dL Albumin (3.5-5.0) g/dL Assessment and Plan Assessment: This is a 65-year-old woman with multiple medical problems that presented anna rgency department on 01/28/2021 after a cardiac arrest in which she suffered around 13:10. Seems that the she had a cardiac arrest lasting for 25 minutes * Encephalopathy due to multiple factorial: Largely from Anoxic brain injury from prolonged cardiac arrest. Also has component from component of metabolic encephalopathy, underlying pneuomonia from COVID 19. Sedation has been stopped since 02/03/2021. * Cardiac arrest on 01/28/2021 lasting 25 minutes * Acute pneumonia due to COVID 19 * Uncontrolled the diabetes mellitus and has brittle sugar level (episodes of hypoglycemia 40's to 50's in Nov and December/2020)--improving * 1.3 cm calcified meningioma along the right frontal convexity * Mild hyponatremia--slight improvement * Hypertension * End-stage renal is on dialysis * Carotid artery disease * DVT on Eliquis * History of poor peripheral neuropathy Plan: Continue Keppra 500 mg 1 tablet twice a day. An additional 500mg post dialysis (M,W,F). Continue neuro checks Repeat CT of the head on 02/07/21 shows symmetrical increased attenuation within the bilateral basilar ganglia, new from 01/31/2021. Consider symmetrical/metabolic etiology such as nonketotic hyperglycemia. Redemonstrated 1.3 cm calcified meningioma along the right frontal convexity. Otherwise no acute intracranial abnormality seen. She had multiple CT of the head and none showed acute ischemia or intracranial parenchymal bleed or any stroke. She also had 3 EEGs and none showed seizures. We'll defer the rest of medical management to the primary/ICU team. The patient prognosis is poor and has poor meaningful recovery due to prolonged cardiac arrest and multiple comorbitidies. Has only has brainstem reflexes. Per the patient's nurse, family is want hospice consulted. The plan was discussed with the patient's nurse. Lenny Fernandez M.D. Neuro-hospitalist Time with Patient: Less than 30
--- NOTE | 2021-02-11 22:01 | XR ---
EXAMINATION TYPE: XR chest 1V portable DATE OF EXAM: 02/11/2021 COMPARISON: Today HISTORY: Check tube placement TECHNIQUE: Single view FINDINGS: There is endotracheal tube 3.7 cm from the ady. There is nasogastric tube with the tip w ell below the diaphragm and in the stomach. Heart is enlarged. There is no heart failure. Mediastinum is normal. Trachea is midline. IMPRESSION: There is improvement in the pulmonary interstitial edema compared to exam this morning. T ubing in good position.
[2021-02-11 22:23] LABS: Anisocytosis Slight; Basophils % (A) 0 %; Eosinophils % (A) 0 %; HCT 33.8 % (34.0-46.0); HGB 11.1 gm/dL (11.4-16.0); Hypochromasia Slight; Lymphocytes # (A) 1.1 k/uL (1.0-4.8); Lymphocytes % (A) 8 %; MCH 30.9 pg (25.0-35.0); MCHC 32.7 g/dL (31.0-37.0); MCV 94.3 fL (80.0-100.0); Mean Platelet Volume 8.4; Monocytes # (A) 0.4 k/uL (0-1.0); Monocytes % (A) 2 %; Neutrophils # (A) 13.1 k/uL (1.3-7.7); Neutrophils % (A) 89 %; Platelet Count 352 k/uL (150-450); RBC 3.58 m/uL (3.80-5.40); RDW 16.2 % (11.5-15.5); WBC 14.7 k/uL (3.8-10.6)
[2021-02-11] MEDS: amLODIPine 10 MG TAB PO SCH (23:12)
[2021-02-12 00:02] LABS: Glucose,Whole Blood 122 mg/dL (75-99)
[2021-02-12] MEDS: INSULIN ASPART (NovoLOG) 100 UNIT/ML VIAL SQ SCH ×5 (00:56→23:59)
[2021-02-12] MEDS: hydrALAZINE HCL 20 MG/ML 1 ML VIAL IVP PRN (01:38)
[2021-02-12 04:36] LABS: Anisocytosis Slight; Basophils % (A) 0 %; Eosinophils # (A) 0.1 k/uL (0-0.7); Eosinophils % (A) 0 %; HCT 34.1 % (34.0-46.0); HGB 10.6 gm/dL (11.4-16.0); Hypochromasia Slight; Lymphocytes # (A) 1.7 k/uL (1.0-4.8); Lymphocytes % (A) 10 %; MCH 29.7 pg (25.0-35.0); MCV 95.8 fL (80.0-100.0); Mean Platelet Volume 8.3; Monocytes # (A) 0.7 k/uL (0-1.0); Monocytes % (A) 4 %; Neutrophils # (A) 14.2 k/uL (1.3-7.7); Neutrophils % (A) 85 %; Platelet Count 390 k/uL (150-450); RBC 3.57 m/uL (3.80-5.40); RDW 16.5 % (11.5-15.5); WBC 16.7 k/uL (3.8-10.6)
[2021-02-12 04:59] LABS: Albumin 2.7 g/dL (3.5-5.0); Calcium 9.1 mg/dL (8.4-10.2); Potassium 4.3 mmol/L (3.5-5.1); Total Bilirubin 0.4 mg/dL (0.2-1.3); Total Protein 5.6 g/dL (6.3-8.2)
[2021-02-12 05:42] LABS: Glucose,Whole Blood 138 mg/dL (75-99)
[2021-02-12 06:08] LABS: ABG Base Excess 2.4 mmol/L; ABG HCO3 27 mmol/L (21-25); ABG Oxygen Saturation 94.1 % (94-97); ABG PCO2 41 mmHg (35-45); ABG PH 7.42 (7.35-7.45); ABG PO2 71 mmHg (83-108); ABG TCO2 28 mmol/L (19-24)
[2021-02-12 06:11] LABS: Allen Test Performed? no
--- NOTE | 2021-02-12 06:58 | XR ---
EXAMINATION TYPE: XR chest 1V portable DATE OF EXAM: 02/12/2021 CLINICAL HISTORY: Difficulty breathing progress study. TECHNIQUE: Single AP portable upright view of the chest is obtained. COMPARISON: Chest x-ray from one day earlier and older studies. FINDINGS: Stable endotracheal and orogastric tubes. Stable cardiomegaly. Background chronic parenchymal changes with persistent left basilar opacity. Und erlying scoliotic curvature or positioning. IMPRESSION: Cardiomegaly with left basilar acute infiltrate and/or atelectasis redemonstrated. No sig nificant change from one day earlier.
[2021-02-12] MEDS: INSULIN DETEMIR (LEVEMIR) 100 UNIT/ML SYR SQ SCH (06:59)
[2021-02-12] MEDS: CALCIUM ACETATE 667 MG TAB PO SCH (07:00)
[2021-02-12] MEDS: ALBUTEROL HFA INHALER INHALATION PRN (07:43)
--- NOTE | 2021-02-12 08:53 | P.PN ---
Subjective Progress Note Date: 02/12/21 On 02/07/2021 on seeing the patient for a follow-up. The patient is post cardiac arrest and hypoxic encephalopathy. The patient remains intubated on a mechanical ventilator. The patient is currently off sedation and neurologic function of being monitored very closely. The patient has been off sedation since 02/03/2021. Currently on assist control mode at the rate of 14 with a tidal volume of 350 and FiO2 of 30% with a PEEP of 5. The patient's chest x-ray is showing infiltrates bilaterally more significant in the left lower lobe. Blood gases is pending for now. Dr Fernandez had a discussion was done with the family earlier prior to l and the plan was to proceed with tracheostomy tube insertion for long-term need of ventilatory support. The patient meanwhile is receiving enteral feeding for nutritional support and the patient is currently on Nepro 34 mL an hour per goal. The patient is requiring dialysis intermittently. That the patient has an incisional disease and she has been on dialysis on outpatient basis 3 times a week. The patient has nephrology is on the case. The Cleviprex was discontinued and the patient's blood pressure is being monitored. Noted the patient has multiple medical problems and comorbidities. The patient has end-stage renal disease. The patient undergoes hemodialysis. The patient also has coronary artery disease, diabetes mellitus type 2 and the patient's had V. tach and cardiac arrest. The family initiated a CPR according to the history as the patient was found to be unresponsive. The patient got defibrillated and CPR was continued by EMS. The downtime was estimated to be at least 20 minutes. The patient has been in intensive care unit since 01/30/2021. He is post V. fib arrest. He is also on Norvasc 10 mg a day for blood pressure control. He is on Keppra for any seizure activity, prophylaxis. The patient is on aspirin. The patient is off sedation. The patient is on Decadron 6 mg IV scheduled. Other comorbidities include diabetic peripheral neuropathy, chronic lower extremity ulcers and onset cellulitis and the patient has chronic lymphedema. I further can't understand the patient's family is interested in transferring her to another facility. Meanwhile, the patient's blood work today showed a white cell count 15.4 with a hemoglobin of 9.7 and the platelet count of 371. Creatinine is 86 with a creatinine of 6.1 and sodium level of 132. The chest x-ray from today is essentially clear. The patient's ET tube is in a good location. The patient has a G-tube in place. No significant pulmonary infiltration. The patient is tolerating her enteral feeding for nutritional support. Her last session of hemodialysis was on Sunday which is 3 days ago. No seizure activity has been noted. The patient remains on Decadron 6 mg IV every 24 hours. 02/08/2021, the patient remains off sedation. There is a case of hypoxic encephalopathy and the patient has not shown any signs of neurologic recovery. No seizure activity has been noted. I discussed the case with neurology and Dr. Galvez has also spoken to the family in this regard. The patient remains off sedation. Neurologic functions are quite impaired. She does have a weak cough and gag. She is completely unresponsive to any verbal stimulation. He does not withdraw to painful stimulation. She is currently on assist control mode at the rate of 14 with a tidal volume of 350 and FiO2 of 30% with a PEEP of 5. Yesterday, I give the patient a breathing trial with a pressure support of 10 and PEEP of 5. She was able to tolerate that for a total of 10 hours and ultimately she had to be placed back on assist control mode of ventilation yesterday. The patient underwent also dialysis yesterday. Nephrology remains on the case. The patient is still off Cleviprex Blood pressure is currently at 157/64. The patient is also on Norvasc 10 mg by mouth daily in addition to hydralazine 100 mg by mouth 3 times a day regarding blood pressure control. Cardiac rhythm is sinus. The blood gases from today showed a pH of 7.44 with a pCO2 of 42 and pO2 of 130 and this was done on assist control mode of ventilation. Chest x-ray still pending for now. Meanwhile, the rest of the blood work include a CBC shows a white cell count of 18 with a hemoglobin of 10.7 and the platelets of 436. BUN is at 58 with a creatinine of 4.1 and the patient's potassium level is at 3.8. The patient is receiving enteral feeding for nutritional support and the patient is currently on Nepro running at the rate of 34 mL an hour. She remains on Decadron 6 mg IV every 24 hours been no seizure activity has been noted. No other significant events overnight. She remains on [facility]. Neurologist on the case. 02/09/2021, neurologically unchanged and the patient is unresponsive. She has a cough and a gag on today's evaluation. She is also having some respiratory se cretions and she requires suctioning every shift. Meanwhile, the patient is currently on a pressure support mode of ventilation with a pressure support of 10 and a PEEP of 5. She was able to tolerate this setting for the past 24 hours and her current FiO2 is at 30%. She is hemodynamically stable. She is undergoing hemodialysis today. No neurological recovery. Discussed the case with neurology. She is neurologically impaired and she has anoxic encephalopathy. No seizure activity has been noted and the patient remains on Keppra. She is receiving enteral feeding for nutritional support through her PEG tube. She has adequate blood pressure control and the patient is hemodynamically stable for now. Cardiac rhythm is sinus for now. 2020, neurologically the patient remains unchanged and we have not seen any signs of neurologic recovery this patient over the past several days. Neurology is closely monitoring her progress and I have been talking to Dr. barros and based on our conversation there is no signs of any neurologic progress and recovery. Meanwhile, I have switched this patient to a pressure support mode of ventilation and she remains on a pressure support of 10 and she is also a PEEP of 5. She is doing very well with an FiO2 of 30%. No signs of any respiratory distress pH is able to generate adequate tidal volumes. No tachypnea. No significant respiratory secretions. The chest x-ray from today is not showing any acute abnormalities and the lungs are well expanded. No pulmonary infiltrates. ET tube is in a good location. There may be some left basilar atelectasis compared to yesterday. Otherwise, the patient remains hemodynamically stable. The patient continues to receive enteral feeding and nutritional support. The patient is able to tolerate her tube feeds. Cardiac rhythm is sinus. No fever. No chills. Her dialysis was done yesterday and a total of 2 L of ultrafiltration was done. The patient does not make any urine for now. The patient is also on 35 units of Levemir the patient is on a sliding scale coverage. She is receiving enteral feeding in the form of Nepro at the rate of 34 mL an hour which is currently at goal. She remains on 6 mg of IV Decadron for 24 hours. She is also on Keppra. No seizure activity has been noted. 02/11/2021, neurologically, the patient remains unresponsive. She opens her eyes spontaneously. She has a positive cough and a gag. Does not track. Does not follow commands. Does not withdraw to painful stimulation. No purposeful activity. Neurologic functions are unchanged. She remains on pressure support mode of ventilation at the pressure support of 10 and a PEEP of 5. She has been on this most for more than 48 hours. FiO2 still at 30%. No signs of any respiratory distress. No orotracheal secretions. She is currently undergoing dialysis and the plan is to change her CODE STATUS to comfort care measures or even hospice and subsequently once the decision is made I'm going to extubate the patient can I think she was going to breathe spontaneously for a while postextubation. Her cardiac rhythm is sinus. Hemodynamically stable. She remains on Levemir insulin 35 units along with a sliding scale coverage. She is tolerating enteral feeding for nutritional support through an NG tube. No seizure activity has been noted. She remains on Decadron 6 mg IV every 24 hours. Hemodynamically, she is stable. Her blood work, no major abnormalities have been noted. White cell count of 11.5 with a hemoglobin of 10.8. Her d- dimer is at 4.8. Morning blood gases showed a pH of 7.43 with a pCO2 of 41 and pO2 of 122. Rest of the blood work shows a BUN of 74 with a creatinine of 4.7. Electrolytes are normal. LDH from yesterday was 578. The chest x-ray from today showing no difficulty in abnormalities. Orotracheal tube remains in adequate positioning and the patient also has an NG tube in place. She does have cardiomegaly. 02/12/2021, no change in the patient's neurologic condition. Remains comatose and she is also suffering from hypoxic encephalopathy. Meanwhile, while removal of her originally inserted NG tube, the patient encountered some epistaxis which was ultimately controlled by packing. This was probably related to the prolonged NG tube insertion timing that the patient had for almost 2 weeks. No active bleeding for now. She is hemodynamically stable. She has been on a pressure support mode of ventilation for the past 3 days and she is currently on a pressure support of 10 and PEEP of 5 with an FiO2 of 30% and she's been very comfortable. No significant orotracheal secretions. She has a positive cough and a gag. I'm awaiting final CODE STATUS to be established by the family to proceed with extubation today. As mentioned earlier, the patient may likely be a successful extubation for quite some time. PH is 7.42 pCO2 of 41 and pO2 of 71. Electrolytes are normal. Her last dialysis session was yesterday that was done without any complications. Chest x-ray from today is not showing any acute abnormalities. Findings are stable for now. The patient continues to receive enteral feeding for nutritional support through her NG tube. She remains on Levemir insulin at 35 units along with a sliding scale coverage patient remains on Decadron 6 mg IV every 24 hours. Objective - Vital Signs Vital signs: Vital Signs Temp 97.7 F 02/12/21 04:00 Pulse 67 02/12/21 08:00 Resp 13 02/12/21 08:00 BP 102/71 02/12/21 08:00 Pulse Ox 100 02/12/21 08:00 Intake & Output 02/11/21 02/12/21 02/12/21 18:59 06:59 18:59 Intake Total 954 190 26 Output Total 1900 50 Balance -946 140 26 Weight 108.8 kg 102.4 kg Intake: IV 156 156 26 0.9 @ 10ml/hr 120 120 20 pressure bag 36 36 6 Tube Feeding 408 34 Hemodialysis 300 Other 90 Output: Gastric Drainage 50 Stool 600 Hemodialysis 1300 Other: Voiding Method Incontinent Incontinent Incontinent ABP, PAP, CO, CI - Last Documented Arterial Blood Pressure 168/52 - Exam Currently intubated, and mechanically ventilated. Currently on no sedation. The patient remains completely unresponsive. Orotracheal and orogastric tube are both in place and the patient is on spontaneous breathing with a pressure support of 10 and a PEEP of 5. HEENT examination is grossly unremarkable. Neck supple. Full range of motion. No adenopathy thyromegaly or neck vein distention. Cardiovascular examination reveals regular rhythm rate. S1-S2 normal. No S3 or S4. No discernible murmur noted. Heart sounds are distant. Lungs reveal diffuse bilateral rhonchi and crackles. There are no wheezes. Breath sounds are equal bilaterally. Abdomen soft bowel sounds are heard. No masses or tenderness. Extremities are intact. No cyanosis or clubbing. There is bilateral lower extremity edema. Skin is without rash or lesion. Neurologic examination is unchanged. Off of sedation, she opens her eyes, but there is no purposeful movements. Pupils are equal and symmetrical. The patient has a preferential gaze to the left. No nystagmus. No clonus. Does not withdraw to any painful stimulation. Reflexes are diminished in all 4 extremities. No facial asymmetry. - Labs CBC & Chem 7: 02/12/21 04:05 02/12/21 04:05 Labs: Abnormal Lab Results - Last 24 Hours (Table) 02/11/21 02/11/21 02/11/21 Range/Units 11:18 17:28 22:10 WBC 14.7 H (3.8-10.6) k/uL RBC 3.58 L (3.80-5.40) m/uL Hgb 11.1 L (11.4-16.0) gm/dL Hct 33.8 L (34.0-46.0) % RDW 16.2 H (11.5-15.5) % Neutrophils # 13.1 H (1.3-7.7) k/uL ABG pO2 (83-108) mmHg ABG HCO3 (21-25) mmol/L ABG Total CO2 (19-24) mmol/L Sodium (137-145) mmol/L Chloride (98-107) mmol/L BUN (7-17) mg/dL Creatinine (0.52-1.04) mg/dL Glucose (74-99) mg/dL POC Glucose (mg/dL) 161 H 151 H (75-99) mg/dL Alkaline Phosphatase (38-126) U/L Total Protein (6.3-8.2) g/dL Albumin (3.5-5.0) g/dL 02/12/21 02/12/21 02/12/21 Range/Units 00:01 04:05 04:05 WBC 16.7 H (3.8-10.6) k/uL RBC 3.57 L (3.80-5.40) m/uL Hgb 10.6 L (11.4-16.0) gm/dL Hct (34.0-46.0) % RDW 16.5 H (11.5-15.5) % Neutrophils # 14.2 H (1.3-7.7) k/uL ABG pO2 (83-108) mmHg ABG HCO3 (21-25) mmol/L ABG Total CO2 (19-24) mmol/L Sodium 130 L (137-145) mmol/L Chloride 95 L (98-107) mmol/L BUN 63 H (7-17) mg/dL Creatinine 4.14 H (0.52-1.04) mg/dL Glucose 119 H (74-99) mg/dL POC Glucose (mg/dL) 122 H (75-99) mg/dL Alkaline Phosphatase 139 H (38-126) U/L Total Protein 5.6 L (6.3-8.2) g/dL Albumin 2.7 L (3.5-5.0) g/dL 02/12/21 02/12/21 Range/Units 05:40 06:05 WBC (3.8-10.6) k/uL RBC (3.80-5.40) m/uL Hgb (11.4-16.0) gm/dL Hct (34.0-46.0) % RDW (11.5-15.5) % Neutrophils # (1.3-7.7) k/uL ABG pO2 71 L (83-108) mmHg ABG HCO3 27 H (21-25) mmol/L ABG Total CO2 28 H (19-24) mmol/L Sodium (137-145) mmol/L Chloride (98-107) mmol/L BUN (7-17) mg/dL Creatinine (0.52-1.04) mg/dL Glucose (74-99) mg/dL POC Glucose (mg/dL) 138 H (75-99) mg/dL Alkaline Phosphatase (38-126) U/L Total Protein (6.3-8.2) g/dL Albumin (3.5-5.0) g/dL Assessment and Plan Plan: 1 Cardiac arrest most likely secondary to cardiac arrhythmia initial rhythm was ventricular fibrillation upon EMS arrival. The patient came into the hospital on 01/30/2021 patient is in the intensive care unit since. The patient has obvious signs of anoxic encephalopathy. Estimated down time of the time of the cardiac arrest was around 20 minutes. The patient currently is hemodynamically stable on no pressors , on no pressors and the patient is hemodynamically stable 2 Acute hypoxic respiratory failure secondary to above, with significant anoxic brain injury. Overall respiratory status is stable and the patient is on a pressure support of 10 and a PEEP of 5 with an FiO2 of 30% with a stable chest x-ray. Currently she is still on Decadron. She has a positive cough and a gag. With extubated once the patient's CODE STATUS has been finally e stablished. 3 unresponsiveness secondary to anoxic encephalopathy, no change 4 Anoxic brain injury and metabolic encephalopathy secondary to cardiac arrest. The patient is currently off sedation and the patient is not showing any significant neurologic recovery. 5 Type 2 diabetes. The patient is currently on Levemir insulin at 35 units along with SS coverage. 6 Benign essential hypertension. 7 end stage renal disease on hemodialysis. The patient is undergoing episodic dialysis amount currently undergoing hemodialysis , currently being dialyzed 8 History of carotid artery disease. 9 History of DVT 10 History of diabetic peripheral neuropathy. 11 History of cardiac arrhythmia requiring cardiac ablation. 12 Chronic lymphedema and cellulitis of both lower extremities. 13 History of irritable bowel syndrome. 14 History of covid 19 infection in October of 2020, and the patient also tested positive on 01/28/2021. 15 Possible right paratracheal hematoma from attempted central line placement, stable hemoglobin, chest x-ray findings and is also stable. Plan: Continue ventilator support and the patient remains on a pressure support mode of ventilation with a pressure support of 10 and PEEP of 5 no plans for extubation until the patient gives us a final CODE STATUS. This will hopefully be finalized today Chest x-rays stable for now. Neurologist on the case regarding anoxic encephalopathy , had several discussions with neurology. No obvious neurologic recovery the patient's long- term prognosis poor Continue Keppra Started patient on Lantus 35 units along with NovoLog sliding scale coverage and monitor blood sugar control The prognosis extremely poor Continue enteral feeding for nutritional support No active bleeding for now. NG tube was replaced with a orogastric tube. Overall prognosis extremely poor baseline above-mentioned comorbidities. We'll continue to follow. Family will make a decision about extubation and hospice care today. Critical care eval > 30 min Time with Patient: Greater than 30
[2021-02-12] MEDS: levETIRAcetam IV 500 MG in SODIUM CHLORIDE 0.9% 100 ML IVPB SCH (10:07)
[2021-02-12] MEDS: PANTOPRAZOLE 40 MG/10 ML VIAL IVP SCH ×2 (10:07→21:28)
[2021-02-12] MEDS: DEXAMETHASONE SOD PHOSPHATE 10 MG/ML 1 ML VIAL IV SCH (10:08)
[2021-02-12] MEDS: CHLORHEXIDINE GLUCONATE 15 ML CUP MUCOUS MEM SCH (10:08)
[2021-02-12] MEDS ORDERED: LORazepam 2 MG/ML INJ IV PRN (11:04)
--- NOTE | 2021-02-12 15:58 | P.PN ---
Subjective Progress Note Date: 02/12/21 Principal diagnosis: 1. Cardiac arrest 2. Acute hypoxic respiratory failure 3. anoxic brain injury 65-year-old the female was discharged recently after she was treated for en cephalopathy related to hypoglycemia. Patient went shopping when she had a cardiorespiratory arrest, CPR was started and patient was later found to have went to her tachycardia, patient returned to sinus rhythm and 25 minutes subsequently was intubated and brought to emergency department. Patient did have history of ventricular tachycardia in the past patient was started on amiodarone at that time. Patient does have medical multiple medical problems including end-stage renal disease dialysis dependent chest x-ray showing significant infiltrate in the right lung mostly appears to be volume overload patient does have low-grade fever which can be secondary to cardiorespiratory arrest but patient was empirically started on Zosyn and patient is being admitted to ICU patient is presently intubated with FiO2 of 100% PEEP of 5 patient is breathing over the ventilator patient is on assist-control/volume controlled ventilation, on propofol patient does have conjunctival and corneal reflexes, does have gag reflex. No significant electrolyte abnormalities were appreciated. 02/11/2021 the patient remains unresponsive. She opens her eyes spontaneously. She has a positive cough and a gag. Does not follow commands. Neurologic functions are unchanged. She remains on pressure support mode of ventilation at the pressure support of 10 and a PEEP of 5. She has been on this most for more than 48 hours. FiO2 still at 30%. She is currently undergoing dialysis and the plan is to change her CODE STATUS to comfort care measures or even hospice and subsequently once the decision is made Patient remains in normal sinus rhythm. Hemodynamically stable. She remains on Levemir insulin 35 units along with a sliding scale coverage. She is tolerating enteral feeding for nutritional support through an NG tube. She remains on Decadron 6 mg IV every 24 hours. Hemodynamically, she is stable. Her blood work, no major abnormalities have been noted. White cell count of 11.5 with a hemoglobin of 10.8. Her d-dimer is at 4.8. Morning blood gases showed a pH of 7.43 with a pCO2 of 41 and pO2 of 122. Rest of the blood work shows a BUN of 74 with a creatinine of 4.7. Electrolytes are normal. LDH from yesterday was 578. The chest x-ray from today showing no difficulty in abnormalities. Orotracheal tube remains in adequate positioning and the patient also has an NG tube in place. Plan is comfort care versus hospice once family except there might 02/12/2021 Patient remains in ICU; family members are at bedside; CODE STATUS has been changed to comfort care only; patient has been extubated and currently maintaining her oxygen saturation; chest x-ray obtained this morning is unremarkable; remains on enteral tube feeding with NG tube; Decadron 6 mg IV every 24 hours; Objective - Vital Signs Vital signs: Vital Signs Temp 97.7 F 02/12/21 04:00 Pulse 67 02/12/21 09:00 Resp 16 02/12/21 09:00 BP 146/63 02/12/21 09:00 Pulse Ox 100 02/12/21 09:00 Intake & Output 02/11/21 02/12/21 02/12/21 18:59 06:59 18:59 Intake Total 954 190 39 Output Total 1900 50 Balance -946 140 39 Weight 108.8 kg 102.4 kg Intake: IV 156 156 39 0.9 @ 10ml/hr 120 120 30 pressure bag 36 36 9 Tube Feeding 408 34 Hemodialysis 300 Other 90 Output: Gastric Drainage 50 Stool 600 Hemodialysis 1300 Other: Voiding Method Incontinent Incontinent Incontinent ABP, PAP, CO, CI - Last Documented Arterial Blood Pressure 160/51 - Exam GENERAL: Patient is intubated sedated, does have an NG tube with some bloody drainage from the NG tube. Patient has a central line and arterial line HEENT: Pupils are round and and constricted at this time because of propofol. EOMI. No scleral icterus. No conjunctival pallor. Normocephalic, atraumatic. No pharyngeal erythema. No thyromegaly. CARDIOVASCULAR: S1 and S2 present. No murmurs, rubs, or gallops. PULMONARY: Chest is clear to auscultation, no wheezing or crackles. ABDOMEN: Soft, nontender, nondistended, normoactive bowel sounds. No palpable organomegaly. MUSCULOSKELETAL: No joint swelling or deformity. EXTREMITIES: No cyanosis, clubbing, bilateral pedal edema which is chronic NEUROLOGICAL: Intubated sedated but does have brainstem reflexes, patient doesn't have cough reflex is breathing over the ventilator, does have gag reflex. SKIN: Stage I and 2 ulcers which doesn't appear to be infected - Labs CBC & Chem 7: 02/12/21 04:05 02/12/21 04:05 Labs: Abnormal Lab Results - Last 24 Hours (Table) 02/11/21 02/11/21 02/11/21 Range/Units 11:18 17:28 22:10 WBC 14.7 H (3.8-10.6) k/uL RBC 3.58 L (3.80-5.40) m/uL Hgb 11.1 L (11.4-16.0) gm/dL Hct 33.8 L (34.0-46.0) % RDW 16.2 H (11.5-15.5) % Neutrophils # 13.1 H (1.3-7.7) k/uL ABG pO2 (83-108) mmHg ABG HCO3 (21-25) mmol/L ABG Total CO2 (19-24) mmol/L Sodium (137-145) mmol/L Chloride (98-107) mmol/L BUN (7-17) mg/dL Creatinine (0.52-1.04) mg/dL Glucose (74-99) mg/dL POC Glucose (mg/dL) 161 H 151 H (75-99) mg/dL Alkaline Phosphatase (38-126) U/L Total Protein (6.3-8.2) g/dL Albumin (3.5-5.0) g/dL 02/12/21 02/12/21 02/12/21 Range/Units 00:01 04:05 04:05 WBC 16.7 H (3.8-10.6) k/uL RBC 3.57 L (3.80-5.40) m/uL Hgb 10.6 L (11.4-16.0) gm/dL Hct (34.0-46.0) % RDW 16.5 H (11.5-15.5) % Neutrophils # 14.2 H (1.3-7.7) k/uL ABG pO2 (83-108) mmHg ABG HCO3 (21-25) mmol/L ABG Total CO2 (19-24) mmol/L Sodium 130 L (137-145) mmol/L Chloride 95 L (98-107) mmol/L BUN 63 H (7-17) mg/dL Creatinine 4.14 H (0.52-1.04) mg/dL Glucose 119 H (74-99) mg/dL POC Glucose (mg/dL) 122 H (75-99) mg/dL Alkaline Phosphatase 139 H (38-126) U/L Total Protein 5.6 L (6.3-8.2) g/dL Albumin 2.7 L (3.5-5.0) g/dL 02/12/21 02/12/21 Range/Units 05:40 06:05 WBC (3.8-10.6) k/uL RBC (3.80-5.40) m/uL Hgb (11.4-16.0) gm/dL Hct (34.0-46.0) % RDW (11.5-15.5) % Neutrophils # (1.3-7.7) k/uL ABG pO2 71 L (83-108) mmHg ABG HCO3 27 H (21-25) mmol/L ABG Total CO2 28 H (19-24) mmol/L Sodium (137-145) mmol/L Chloride (98-107) mmol/L BUN (7-17) mg/dL Creatinine (0.52-1.04) mg/dL Glucose (74-99) mg/dL POC Glucose (mg/dL) 138 H (75-99) mg/dL Alkaline Phosphatase (38-126) U/L Total Protein (6.3-8.2) g/dL Albumin (3.5-5.0) g/dL Assessment and Plan Assessment: -Cardiorespiratory arrest leading to respiratory failure: Secondary to ventricular tachycardia . Patient had multiple EEGs and computed tomography scan of the brain all of which showed significant anoxic brain injury. Patient is off sedation since no significant improvement in mental status off sedation. Patient has significant anoxic brain injury over all prognosis is poor, possibility of reasonable neurological recovery is low same thing was discussed with the family . For now family wants to continue the care. Patient's family declined a tracheostomy and PEG tube placement at this time. Prolonged intubation can lead to more infections. -Acute hypoxic respiratory failure leading to anoxic brain injury. -Volume overload: Secondary to end-stage renal disease nephrology evaluated the patient. Patient is undergoing hemodialysis as scheduled -Fever on admission: Last fever was 02/06/2021 Most probably secondary to cardiorespiratory arrest blood cultures so far are negative except for sputum cultures showing gram-positive bacilli and cocci which is usually oral cavity bacteria, patient is presently not on any antibiotics at this time -Recent covid 19 infection and month of October, patient had a repeat Covid 19 test that was positive again this is probably not a new infection but residual inactive RNA fragments. -End-stage renal disease, dialysis dependent -Type 2 diabetes mellitus : Blood sugars are better controlled continue with present regimen History of DVT patient had a paratracheal hematoma but from attempted central line placement because of which Eliquis is being held at this time. -Hypertension -Diabetic peripheral neuropathy -bilateral lower extremity ulcers doesn't appear to have cellulitis but does have chronic lymphedema Patient prognosis is extremely poor. Family will decide on hospice and comfort care
--- NOTE | 2021-02-12 16:10 | PN ---
PROGRESS NOTE Patient is being followed for end-stage renal disease. She has been unresponsive and remains comatose. She is maintained on the vent. She is status post cardiac arrest with anoxic brain injury. The patient was dialyzed yesterday. She tolerated her treatment well. There are plans for possible further change in code status and further discussion. PHYSICAL EXAMINATION: The patient is not examined. Vital signs are reviewed. Blood pressure has been 140-102 mmHg. Heart rate about 67 per minute. Patient is afebrile. LABS: Show sodium 130, potassium 4.3, BUN 63, creatinine 4.1. ASSESSMENT: 1. End-stage renal disease, on hemodialysis on a Sunday, Sunday, Sunday schedule. 2. Acute hypoxic respiratory failure. 3. COVID pneumonia. 4. Status post cardiac arrest. 5. Anoxic encephalopathy with no improvement post cessation of sedation. PLAN: Very poor prognosis and code status will be further discussed sometime today. Consideration for possible hospice care/comfort care. MMTIFFANYL / DUKEN: [id number] /
[2021-02-12] MEDS: ASPIRIN 81 MG PO SCH (17:12)
[2021-02-12] MEDS: hydrALAZINE HCL 50 MG TAB PO SCH (17:12)
[2021-02-12] MEDS: cloNIDine HCL 0.1 MG TAB PO SCH (17:12)
[2021-02-12] MEDS ORDERED: hydrALAZINE HCL 20 MG/ML 1 ML VIAL IVP PRN (20:32)
[2021-02-12 20:38] LABS: Glucose,Whole Blood 62 mg/dL (75-99)
[2021-02-12] MEDS ORDERED: DEXTROSE 50% SYRINGE 50 ML IVP STA (20:42)
[2021-02-12] MEDS ORDERED: SODIUM CHLORIDE 0.9% 500 ML 500 ML IV SCH (20:45)
[2021-02-12] MEDS: MORPHINE SULFATE 2 MG/ML SYRINGE IV PRN (21:58)
[2021-02-12 22:29] LABS: Glucose,Whole Blood 88 mg/dL (75-99)
[2021-02-12 23:58] LABS: Glucose,Whole Blood 76 mg/dL (75-99)
[2021-02-13 03:14] LABS: Glucose,Whole Blood 52 mg/dL (75-99)
[2021-02-13] MEDS ORDERED: DEXTROSE 5%-0.45% NACL 1,000 ML IV SCH (03:30)
[2021-02-13] MEDS: DEXTROSE 5%-0.45% NACL 1,000 ML IV SCH ×2 (03:55→21:31)
[2021-02-13 05:51] LABS: Glucose,Whole Blood 54 mg/dL (75-99)
[2021-02-13] MEDS ORDERED: DEXTROSE 50% SYRINGE 50 ML IVP STA (05:51)
[2021-02-13] MEDS: INSULIN ASPART (NovoLOG) 100 UNIT/ML VIAL SQ SCH ×3 (06:55→17:28)
[2021-02-13 07:15] LABS: Glucose,Whole Blood 90 mg/dL (75-99)
[2021-02-13] MEDS: DEXAMETHASONE SOD PHOSPHATE 10 MG/ML 1 ML VIAL IV SCH (07:56)
[2021-02-13] MEDS: PANTOPRAZOLE 40 MG/10 ML VIAL IVP SCH ×2 (07:56→21:23)
[2021-02-13] MEDS: MORPHINE SULFATE 2 MG/ML SYRINGE IV PRN ×4 (11:38→23:56)
[2021-02-13 11:40] LABS: Glucose,Whole Blood 87 mg/dL (75-99)
[2021-02-13] MEDS: hydrALAZINE HCL 50 MG TAB PO SCH (12:36)
--- NOTE | 2021-02-13 12:53 | PN ---
PROGRESS NOTE Patient has been extubated and transferred out of the ICU. However, she is still not comfort care and family is requesting to proceed with dialysis. The patient remains obtunded, does not respond to any stimuli. PHYSICAL EXAMINATION: Blood pressure was 160/61, heart rate 60 per minute. She is afebrile. Examination of lower extremities shows edema 1+. There is significant edema noted of her left upper extremity. Abdomen is soft, nontender. The patient remains obtunded. She is not moving any of her extremities. There is some epistaxis noted which is mostly currently dry blood at her nose. LAB: Show sodium 130, potassium 4.3, BUN 63, creatinine 4.1 on 02/12/2021. ASSESSMENT: 1. End-stage renal disease, on hemodialysis on a Sunday, Sunday, Sunday schedule. 2. Status post cardiac arrest. 3. Anoxic encephalopathy. 4. Acute hypoxic respiratory failure status post extubation. PLAN: I will discuss with family regarding the care including dialysis. Her prognosis is poor. We will plan to dialyze her tomorrow. However, I do not believe she will benefit from continued renal replacement therapy given the significant anoxic encephalopathy. MMODL / IJN: [id number] /
--- NOTE | 2021-02-13 15:59 | P.PN ---
Subjective Progress Note Date: 02/13/21 On 02/07/2021 on seeing the patient for a follow-up. The patient is post cardiac arrest and hypoxic encephalopathy. The patient remains intubated on a mechanical ventilator. The patient is currently off sedation and neurologic function of being monitored very closely. The patient has been off sedation since 02/03/2021. Currently on assist control mode at the rate of 14 with a tidal volume of 350 and FiO2 of 30% with a PEEP of 5. The patient's chest x-ray is showing infiltrates bilaterally more significant in the left lower lobe. Blood gases is pending for now. Dr Fernandez had a discussion was done with the family earlier prior to l and the plan was to proceed with tracheostomy tube insertion for long-term need of ventilatory support. The patient meanwhile is receiving enteral feeding for nutritional support and the patient is currently on Nepro 34 mL an hour per goal. The patient is requiring dialysis intermittently. That the patient has an incisional disease and she has been on dialysis on outpatient basis 3 times a week. The patient has nephrology is on the case. The Cleviprex was discontinued and the patient's blood pressure is being monitored. Noted the patient has multiple medical problems and comorbidities. The patient has end-stage renal disease. The patient undergoes hemodialysis. The patient also has coronary artery disease, diabetes mellitus type 2 and the patient's had V. tach and cardiac arrest. The family initiated a CPR according to the history as the patient was found to be unresponsive. The patient got defibrillated and CPR was continued by EMS. The downtime was estimated to be at least 20 minutes. The patient has been in intensive care unit since 01/30/2021. He is post V. fib arrest. He is also on Norvasc 10 mg a day for blood pressure control. He is on Keppra for any seizure activity, prophylaxis. The patient is on aspirin. The patient is off sedation. The patient is on Decadron 6 mg IV scheduled. Other comorbidities include diabetic peripheral neuropathy, chronic lower extremity ulcers and onset cellulitis and the patient has chronic lymphedema. I further can't understand the patient's family is interested in transferring her to another facility. Meanwhile, the patient's blood work today showed a white cell count 15.4 with a hemoglobin of 9.7 and the platelet count of 371. Creatinine is 86 with a creatinine of 6.1 and sodium level of 132. The chest x-ray from today is essentially clear. The patient's ET tube is in a good location. The patient has a G-tube in place. No significant pulmonary infiltration. The patient is tolerating her enteral feeding for nutritional support. Her last session of hemodialysis was on Sunday which is 3 days ago. No seizure activity has been noted. The patient remains on Decadron 6 mg IV every 24 hours. 02/08/2021, the patient remains off sedation. There is a case of hypoxic encephalopathy and the patient has not shown any signs of neurologic recovery. No seizure activity has been noted. I discussed the case with neurology and Dr. Galvez has also spoken to the family in this regard. The patient remains off sedation. Neurologic functions are quite impaired. She does have a weak cough and gag. She is completely unresponsive to any verbal stimulation. He does not withdraw to painful stimulation. She is currently on assist control mode at the rate of 14 with a tidal volume of 350 and FiO2 of 30% with a PEEP of 5. Yesterday, I give the patient a breathing trial with a pressure support of 10 and PEEP of 5. She was able to tolerate that for a total of 10 hours and ultimately she had to be placed back on assist control mode of ventilation yesterday. The patient underwent also dialysis yesterday. Nephrology remains on the case. The patient is still off Cleviprex Blood pressure is currently at 157/64. The patient is also on Norvasc 10 mg by mouth daily in addition to hydralazine 100 mg by mouth 3 times a day regarding blood pressure control. Cardiac rhythm is sinus. The blood gases from today showed a pH of 7.44 with a pCO2 of 42 and pO2 of 130 and this was done on assist control mode of ventilation. Chest x-ray still pending for now. Meanwhile, the rest of the blood work include a CBC shows a white cell count of 18 with a hemoglobin of 10.7 and the platelets of 436. BUN is at 58 with a creatinine of 4.1 and the patient's potassium level is at 3.8. The patient is receiving enteral feeding for nutritional support and the patient is currently on Nepro running at the rate of 34 mL an hour. She remains on Decadron 6 mg IV every 24 hours been no seizure activity has been noted. No other significant events overnight. She remains on [facility]. Neurologist on the case. 02/09/2021, neurologically unchanged and the patient is unresponsive. She has a cough and a gag on today's evaluation. She is also having some respiratory se cretions and she requires suctioning every shift. Meanwhile, the patient is currently on a pressure support mode of ventilation with a pressure support of 10 and a PEEP of 5. She was able to tolerate this setting for the past 24 hours and her current FiO2 is at 30%. She is hemodynamically stable. She is undergoing hemodialysis today. No neurological recovery. Discussed the case with neurology. She is neurologically impaired and she has anoxic encephalopathy. No seizure activity has been noted and the patient remains on Keppra. She is receiving enteral feeding for nutritional support through her PEG tube. She has adequate blood pressure control and the patient is hemodynamically stable for now. Cardiac rhythm is sinus for now. 2020, neurologically the patient remains unchanged and we have not seen any signs of neurologic recovery this patient over the past several days. Neurology is closely monitoring her progress and I have been talking to Dr. barros and based on our conversation there is no signs of any neurologic progress and recovery. Meanwhile, I have switched this patient to a pressure support mode of ventilation and she remains on a pressure support of 10 and she is also a PEEP of 5. She is doing very well with an FiO2 of 30%. No signs of any respiratory distress pH is able to generate adequate tidal volumes. No tachypnea. No significant respiratory secretions. The chest x-ray from today is not showing any acute abnormalities and the lungs are well expanded. No pulmonary infiltrates. ET tube is in a good location. There may be some left basilar atelectasis compared to yesterday. Otherwise, the patient remains hemodynamically stable. The patient continues to receive enteral feeding and nutritional support. The patient is able to tolerate her tube feeds. Cardiac rhythm is sinus. No fever. No chills. Her dialysis was done yesterday and a total of 2 L of ultrafiltration was done. The patient does not make any urine for now. The patient is also on 35 units of Levemir the patient is on a sliding scale coverage. She is receiving enteral feeding in the form of Nepro at the rate of 34 mL an hour which is currently at goal. She remains on 6 mg of IV Decadron for 24 hours. She is also on Keppra. No seizure activity has been noted. 02/11/2021, neurologically, the patient remains unresponsive. She opens her eyes spontaneously. She has a positive cough and a gag. Does not track. Does not follow commands. Does not withdraw to painful stimulation. No purposeful activity. Neurologic functions are unchanged. She remains on pressure support mode of ventilation at the pressure support of 10 and a PEEP of 5. She has been on this most for more than 48 hours. FiO2 still at 30%. No signs of any respiratory distress. No orotracheal secretions. She is currently undergoing dialysis and the plan is to change her CODE STATUS to comfort care measures or even hospice and subsequently once the decision is made I'm going to extubate the patient can I think she was going to breathe spontaneously for a while postextubation. Her cardiac rhythm is sinus. Hemodynamically stable. She remains on Levemir insulin 35 units along with a sliding scale coverage. She is tolerating enteral feeding for nutritional support through an NG tube. No seizure activity has been noted. She remains on Decadron 6 mg IV every 24 hours. Hemodynamically, she is stable. Her blood work, no major abnormalities have been noted. White cell count of 11.5 with a hemoglobin of 10.8. Her d- dimer is at 4.8. Morning blood gases showed a pH of 7.43 with a pCO2 of 41 and pO2 of 122. Rest of the blood work shows a BUN of 74 with a creatinine of 4.7. Electrolytes are normal. LDH from yesterday was 578. The chest x-ray from today showing no difficulty in abnormalities. Orotracheal tube remains in adequate positioning and the patient also has an NG tube in place. She does have cardiomegaly. 02/12/2021, no change in the patient's neurologic condition. Remains comatose and she is also suffering from hypoxic encephalopathy. Meanwhile, while removal of her originally inserted NG tube, the patient encountered some epistaxis which was ultimately controlled by packing. This was probably related to the prolonged NG tube insertion timing that the patient had for almost 2 weeks. No active bleeding for now. She is hemodynamically stable. She has been on a pressure support mode of ventilation for the past 3 days and she is currently on a pressure support of 10 and PEEP of 5 with an FiO2 of 30% and she's been very comfortable. No significant orotracheal secretions. She has a positive cough and a gag. I'm awaiting final CODE STATUS to be established by the family to proceed with extubation today. As mentioned earlier, the patient may likely be a successful extubation for quite some time. PH is 7.42 pCO2 of 41 and pO2 of 71. Electrolytes are normal. Her last dialysis session was yesterday that was done without any complications. Chest x-ray from today is not showing any acute abnormalities. Findings are stable for now. The patient continues to receive enteral feeding for nutritional support through her NG tube. She remains on Levemir insulin at 35 units along with a sliding scale coverage patient remains on Decadron 6 mg IV every 24 hours. 02/13/2021, the patient is on a medical floor. The patient has been extubated and the patient is currently on a Ventimask 40% FiO2. Doing well. No signi ficant respiratory difficulties. She has a cough and she is able to protect her airways for now. Neurologically unchanged and the patient has developed severe hypoxic encephalopathy and the patient remains completely unresponsive to any verbal or tactile stimulation. She does have some reflexes which is expected in patients with anoxic encephalopathy. The family the bedside. She is not receiv ing any form of enteral feeding. The patient however is going to get dialyzed per family's request. The family is interested in palliative care for now. The patient is on NovoLog sliding scale coverage. His resting comfortably in bed. She remains on Decadron 6 mg IV every 24 hours. No seizure activity has been noted. Objective - Vital Signs Vital signs: Vital Signs Temp 96.8 F L 02/12/21 20:00 Pulse 57 L 02/13/21 14:00 Resp 14 02/13/21 14:00 BP 127/67 02/13/21 14:00 Pulse Ox 96 02/13/21 14:00 Intake & Output 02/12/21 02/13/21 02/13/21 18:59 06:59 18:59 Intake Total 52 Output Total 1000 Balance -948 Intake: IV 52 0.9 @ 10ml/hr 40 pressure bag 12 Output: Stool 1000 Other: Voiding Method Incontinent Incontinent # Voids 0 ABP, PAP, CO, CI - Last Documented Arterial Blood Pressure 150/49 - Exam Gen. appearance unresponsive, comatose, calm and comfortable, the patient is currently on 40% Ventimask. HEENT examination is grossly unremarkable. Neck supple. Full range of motion. No adenopathy thyromegaly or neck vein distention. Cardiovascular examination reveals regular rhythm rate. S1-S2 normal. No S3 or S4. No discernible murmur noted. Heart sounds are distant. Lungs reveal diffuse bilateral rhonchi and crackles. There are no wheezes. Breath sounds are equal bilaterally. Abdomen soft bowel sounds are heard. No masses or tenderness. Extremities are intact. No cyanosis or clubbing. There is bilateral lower extremity edema. Skin is without rash or lesion. Neurologic examination is unchanged. she opens her eyes, but there is no purposeful movements. Pupils are equal and symmetrical. The patient has a preferential gaze to the left. No nystagmus. No clonus. Does not withdraw to any painful stimulation. Reflexes are diminished in all 4 extremities. No facial asymmetry. - Labs CBC & Chem 7: 02/12/21 04:05 02/12/21 04:05 Labs: Abnormal Lab Results - Last 24 Hours (Table) 02/12/21 02/13/21 02/13/21 Range/Units 20:35 03:11 05:48 POC Glucose (mg/dL) 62 L 52 L 54 L (75-99) mg/dL Assessment and Plan Plan: 1 Cardiac arrest most likely secondary to cardiac arrhythmia initial rhythm was ventricular fibrillation upon EMS arrival. The patient came into the hospital on 01/30/2021 patient is in the intensive care unit since. The patient has obvious signs of anoxic encephalopathy. Estimated down time of the time of the cardiac arrest was around 20 minutes. The patient currently is hemodynamically stable on no pressors , on no pressors and the patient is hemodynamically stable 2 Acute hypoxic respiratory failure secondary to above, extubated and patient is currently on a 40% Ventimask and she is able to protect her airways. 3 unresponsiveness secondary to anoxic encephalopathy, no change 4 Anoxic brain injury and metabolic encephalopathy secondary to cardiac arrest. The patient is currently off sedation and the patient is not showing any significant neurologic recovery. 5 Type 2 diabetes. The patient is currently on Levemir insulin at 35 units along with SS coverage. 6 Benign essential hypertension. 7 end stage renal disease on hemodialysis. The patient is undergoing episodic dialysis amount currently undergoing hemodialysis , currently being dialyzed 8 History of carotid artery disease. 9 History of DVT 10 History of diabetic peripheral neuropathy. 11 History of cardiac arrhythmia requiring cardiac ablation. 12 Chronic lymphedema and cellulitis of both lower extremities. 13 History of irritable bowel syndrome. 14 History of covid 19 infection in October of 2020, and the patient also tested positive on 01/28/2021. 15 Possible right paratracheal hematoma from attempted central line placement, stable hemoglobin, chest x-ray findings and is also stable. Plan: patient is extubated. NG tube is removed. Continue 40% Ventimask. Palliative care versus hospice. No signs of any neurologic recovery. Pulmonary critical care services we'll sign off.
[2021-02-13 17:13] LABS: Glucose,Whole Blood 90 mg/dL (75-99)
--- NOTE | 2021-02-13 18:19 | P.PN ---
Subjective Progress Note Date: 02/13/21 Principal diagnosis: 1. Cardiac arrest 2. Acute hypoxic respiratory failure 3. anoxic brain injury 65-year-old the female was discharged recently after she was treated for en cephalopathy related to hypoglycemia. Patient went shopping when she had a cardiorespiratory arrest, CPR was started and patient was later found to have went to her tachycardia, patient returned to sinus rhythm and 25 minutes subsequently was intubated and brought to emergency department. Patient did have history of ventricular tachycardia in the past patient was started on amiodarone at that time. Patient does have medical multiple medical problems including end-stage renal disease dialysis dependent chest x-ray showing significant infiltrate in the right lung mostly appears to be volume overload patient does have low-grade fever which can be secondary to cardiorespiratory arrest but patient was empirically started on Zosyn and patient is being admitted to ICU patient is presently intubated with FiO2 of 100% PEEP of 5 patient is breathing over the ventilator patient is on assist-control/volume controlled ventilation, on propofol patient does have conjunctival and corneal reflexes, does have gag reflex. No significant electrolyte abnormalities were appreciated. 02/11/2021 the patient remains unresponsive. She opens her eyes spontaneously. She has a positive cough and a gag. Does not follow commands. Neurologic functions are unchanged. She remains on pressure support mode of ventilation at the pressure support of 10 and a PEEP of 5. She has been on this most for more than 48 hours. FiO2 still at 30%. She is currently undergoing dialysis and the plan is to change her CODE STATUS to comfort care measures or even hospice and subsequently once the decision is made Patient remains in normal sinus rhythm. Hemodynamically stable. She remains on Levemir insulin 35 units along with a sliding scale coverage. She is tolerating enteral feeding for nutritional support through an NG tube. She remains on Decadron 6 mg IV every 24 hours. Hemodynamically, she is stable. Her blood work, no major abnormalities have been noted. White cell count of 11.5 with a hemoglobin of 10.8. Her d-dimer is at 4.8. Morning blood gases showed a pH of 7.43 with a pCO2 of 41 and pO2 of 122. Rest of the blood work shows a BUN of 74 with a creatinine of 4.7. Electrolytes are normal. LDH from yesterday was 578. The chest x-ray from today showing no difficulty in abnormalities. Orotracheal tube remains in adequate positioning and the patient also has an NG tube in place. Plan is comfort care versus hospice once family except there might 02/12/2021 Patient remains in ICU; family members are at bedside; CODE STATUS has been changed to comfort care only; patient has been extubated and currently maintaining her oxygen saturation; chest x-ray obtained this morning is unremarkable; remains on enteral tube feeding with NG tube; Decadron 6 mg IV every 24 hours; 02/13/2021 Patient is seen and evaluated with family members at bedside; currently on 40% Ventimask with SpO2 greater than 95% Patient has severe hypoxic encephalopathy; remains unchanged neurologically; family initially decided to sign up with hospice care; not requesting discharge with palliative care Patient is currently not receiving any form of tube feeding; family is requesting to continue with hemodialysis Objective - Vital Signs Vital signs: Vital Signs Temp 96.8 F L 02/12/21 20:00 Pulse 60 02/13/21 08:00 Resp 14 02/13/21 08:00 BP 160/61 02/13/21 08:00 Pulse Ox 97 02/13/21 08:00 Intake & Output 02/12/21 02/13/21 02/13/21 18:59 06:59 18:59 Intake Total 52 Output Total 1000 Balance -948 Intake: IV 52 0.9 @ 10ml/hr 40 pressure bag 12 Output: Stool 1000 Other: Voiding Method Incontinent Incontinent # Voids 0 ABP, PAP, CO, CI - Last Documented Arterial Blood Pressure 150/49 - Exam GENERAL: Patient is intubated sedated, does have an NG tube with some bloody drainage from the NG tube. Patient has a central line and arterial line HEENT: Pupils are round and and constricted at this time because of propofol. EOMI. No scleral icterus. No conjunctival pallor. Normocephalic, atraumatic. No pharyngeal erythema. No thyromegaly. CARDIOVASCULAR: S1 and S2 present. No murmurs, rubs, or gallops. PULMONARY: Chest is clear to auscultation, no wheezing or crackles. ABDOMEN: Soft, nontender, nondistended, normoactive bowel sounds. No palpable organomegaly. MUSCULOSKELETAL: No joint swelling or deformity. EXTREMITIES: No cyanosis, clubbing, bilateral pedal edema which is chronic NEUROLOGICAL: Intubated sedated but does have brainstem reflexes, patient doesn't have cough reflex is breathing over the ventilator, does have gag refle x. SKIN: Stage I and 2 ulcers which doesn't appear to be infected - Labs CBC & Chem 7: 02/12/21 04:05 02/12/21 04:05 Labs: Abnormal Lab Results - Last 24 Hours (Table) 02/12/21 02/13/21 02/13/21 Range/Units 20:35 03:11 05:48 POC Glucose (mg/dL) 62 L 52 L 54 L (75-99) mg/dL Assessment and Plan Assessment: -Cardiorespiratory arrest leading to respiratory failure: Secondary to ventricular tachycardia . Patient had multiple EEGs and computed tomography scan of the brain all of which showed significant anoxic brain injury. Patient is off sedation since no significant improvement in mental status off sedation. Patient has significant anoxic brain injury over all prognosis is poor, possibility of reasonable neurological recovery is low same thing was discussed with the family . For now family wants to continue the care. Patient's family declined a tracheostomy and PEG tube placement at this time. Prolonged intubation can lead to more infections. -Acute hypoxic respiratory failure leading to anoxic brain injury. -Volume overload: Secondary to end-stage renal disease nephrology evaluated the patient. Patient is undergoing hemodialysis as scheduled -Fever on admission: Last fever was 02/06/2021 Most probably secondary to cardiorespiratory arrest blood cultures so far are negative except for sputum cultures showing gram-positive bacilli and cocci which is usually oral cavity bacteria, patient is presently not on any antibiotics at this time -Recent covid 19 infection and month of October, patient had a repeat Covid 19 test that was positive again this is probably not a new infection but residual inactive RNA fragments. -End-stage renal disease, dialysis dependent -Type 2 diabetes mellitus : Blood sugars are better controlled continue with present regimen History of DVT patient had a paratracheal hematoma but from attempted central line placement because of which Eliquis is being held at this time. -Hypertension -Diabetic peripheral neuropathy -bilateral lower extremity ulcers doesn't appear to have cellulitis but does hav e chronic lymphedema Patient prognosis is extremely poor. Family will decide on hospice and comfort care
[2021-02-13 21:38] LABS: Glucose,Whole Blood 48 mg/dL (75-99)
[2021-02-13 21:38] LABS: Glucose,Whole Blood 96 mg/dL (75-99)
[2021-02-13 21:38] LABS: Glucose,Whole Blood 66 mg/dL (75-99)
[2021-02-14 00:09] LABS: Glucose,Whole Blood 105 mg/dL (75-99)
[2021-02-14 02:35] LABS: Glucose,Whole Blood 113 mg/dL (75-99)
[2021-02-14] MEDS: MORPHINE SULFATE 2 MG/ML SYRINGE IV PRN ×3 (03:49→19:48)
[2021-02-14] MEDS: INSULIN ASPART (NovoLOG) 100 UNIT/ML VIAL SQ SCH ×4 (05:13→17:37)
[2021-02-14] MEDS: PANTOPRAZOLE 40 MG/10 ML VIAL IVP SCH ×2 (08:07→19:21)
[2021-02-14] MEDS: DEXAMETHASONE SOD PHOSPHATE 10 MG/ML 1 ML VIAL IV SCH (08:07)
[2021-02-14 08:12] VITALS: TEMP 97
[2021-02-14 08:22] LABS: Glucose,Whole Blood 185 mg/dL (75-99)
[2021-02-14 09:13] LABS: Basophils # (A) 0.02 X 10*3/uL (0.00-0.10); Basophils % (A) 0.1 %; Eosinophils # (A) 0.21 X 10*3/uL (0.04-0.35); Eosinophils % (A) 1.3 %; HCT 30.1 % (37.2-46.3); HGB 9.4 g/dL (12.0-15.0); Lymphocytes # (A) 1.06 X 10*3/uL (0.90-5.00); Lymphocytes % (A) 6.8 %; MCH 29.8 pg (27.0-32.0); MCHC 31.2 g/dL (32.0-37.0); MCV 95.6 fL (80.0-97.0); Mean Platelet Volume 11.1 fL (9.5-12.2); Monocytes # (A) 0.91 X 10*3/uL (0.20-1.00); Monocytes % (A) 5.8 %; Neutrophils # (A) 13.39 X 10*3/uL (1.80-7.70); Neutrophils % (A) 85.5 %; Platelet Count 351 X 10*3/uL (140-440); RBC 3.15 X 10*6/uL (4.10-5.20); RDW 16.2 % (11.5-14.5); WBC 15.67 X 10*3/uL (4.50-10.00)
[2021-02-14 10:36] LABS: Anion Gap 13.8 mmol/L (4.00-12.00); BUN/Creat Ratio 18.78 Ratio (12.00-20.00); Calcium 8.4 mg/dL (8.7-10.3); Carbon Dioxide 22.2 mmol/L (21.6-31.8); Non-African American GFR(CKD) 8.6 (60.0-200.0)
[2021-02-14 11:25] LABS: Glucose,Whole Blood 202 mg/dL (75-99)
[2021-02-14 11:53] VITALS: BMI 36.4
--- NOTE | 2021-02-14 13:38 | P.PN ---
Subjective Progress Note Date: 02/14/21 CHIEF COMPLAINT: Cardiac arrest HISTORY OF PRESENT ILLNESS: Patient admitted to the hospital after cardiac arrest with hypoxic respiratory failure and anoxic brain injury. Surgical service following regards to trach and PEG tube placement. Family had declined tracheostomy and PEG tube placement. Patient is currently under palliative care. She is on a Ventimask. Afebrile. WBC 15.67 hemoglobin 9.4 PHYSICAL EXAM: VITAL SIGNS: Reviewed. GENERAL: Well-developed in no acute distress. HEENT: No sclera icterus. Extraocular movements grossly intact. Moist buccal mucosa. Head is atraumatic, normocephalic. ABDOMEN: Soft. Nondistended. Nontender. NEUROLOGIC: Nonresponsive ASSESSMENT: 1. Cardiac arrest 2. Acute hypoxic respiratory failure 3. anoxic brain injury 4. History of DVT maintained 5. End-stage renal disease 6. History of Covid 19 infection in October 2020 PLAN: -Continue palliative care -Surgical service will sign off Physician Computer Graphics Illustrator note has been reviewed by physician. Signing provider agrees with the documented findings, assessment, and plan of care. Objective - Vital Signs Vital signs: Vital Signs Temp 97.0 F L 02/14/21 08:00 Pulse 59 L 02/14/21 08:00 Resp 16 02/14/21 08:00 BP 109/62 02/14/21 08:00 Pulse Ox 97 02/14/21 08:00 Intake & Output 02/13/21 02/14/21 02/14/21 18:59 06:59 18:59 Intake Total 600 Balance 600 Weight 102.4 kg Intake: Intake, IV Titration 600 Amount Dextrose 5%-0.45% NaCl 1, 600 000 ml @ 50 mls/hr IV . Q20H [facility] Rx#:[id number] Other: Voiding Method Incontinent Incontinent # Voids 0 ABP, PAP, CO, CI - Last Documented Arterial Blood Pressure 150/49 - Labs CBC & Chem 7: 02/14/21 05:02 02/14/21 05:02 Labs: Abnormal Lab Results - Last 24 Hours (Table) 02/13/21 02/13/21 02/14/21 Range/Units 21:28 21:29 00:00 WBC (4.50-10.00) X 10*3/uL RBC (4.10-5.20) X 10*6/uL Hgb (12.0-15.0) g/dL Hct (37.2-46.3) % MCHC (32.0-37.0) g/dL RDW (11.5-14.5) % Immature Gran # (0.00-0.04) X 10*3/uL Neutrophils # (1.80-7.70) X 10*3/uL Sodium (135-145) mmol/L Anion Gap (4.00-12.00) mmol/L BUN (9.0-27.0) mg/dL Creatinine (0.6-1.5) mg/dL Est GFR (CKD-EPI)AfAm (60.0-200.0) Est GFR (CKD-EPI)NonAf (60.0-200.0) Glucose (70-110) mg/dL POC Glucose (mg/dL) 66 L 48 L 105 H (75-99) mg/dL Calcium (8.7-10.3) mg/dL 02/14/21 02/14/21 02/14/21 Range/Units 02:33 05:02 05:02 WBC 15.67 H (4.50-10.00) X 10*3/uL RBC 3.15 L (4.10-5.20) X 10*6/uL Hgb 9.4 L (12.0-15.0) g/dL Hct 30.1 L (37.2-46.3) % MCHC 31.2 L (32.0-37.0) g/dL RDW 16.2 H (11.5-14.5) % Immature Gran # 0.08 H (0.00-0.04) X 10*3/uL Neutrophils # 13.39 H (1.80-7.70) X 10*3/uL Sodium 134 L (135-145) mmol/L Anion Gap 13.80 H (4.00-12.00) mmol/L BUN 92.0 H (9.0-27.0) mg/dL Creatinine 4.9 H (0.6-1.5) mg/dL Est GFR (CKD-EPI)AfAm 10.0 L (60.0-200.0) Est GFR (CKD-EPI)NonAf 8.6 L (60.0-200.0) Glucose 136 H (70-110) mg/dL POC Glucose (mg/dL) 113 H (75-99) mg/dL Calcium 8.4 L (8.7-10.3) mg/dL 02/14/21 02/14/21 Range/Units 08:18 11:20 WBC (4.50-10.00) X 10*3/uL RBC (4.10-5.20) X 10*6/uL Hgb (12.0-15.0) g/dL Hct (37.2-46.3) % MCHC (32.0-37.0) g/dL RDW (11.5-14.5) % Immature Gran # (0.00-0.04) X 10*3/uL Neutrophils # (1.80-7.70) X 10*3/uL Sodium (135-145) mmol/L Anion Gap (4.00-12.00) mmol/L BUN (9.0-27.0) mg/dL Creatinine (0.6-1.5) mg/dL Est GFR (CKD-EPI)AfAm (60.0-200.0) Est GFR (CKD-EPI)NonAf (60.0-200.0) Glucose (70-110) mg/dL POC Glucose (mg/dL) 185 H 202 H (75-99) mg/dL Calcium (8.7-10.3) mg/dL
[2021-02-14 17:31] LABS: Glucose,Whole Blood 210 mg/dL (75-99)
--- NOTE | 2021-02-14 18:27 | PN ---
PROGRESS NOTE Patient is seen for followup for end-stage renal disease. I had a discussion with the family yesterday, and at this time they would like to continue with dialysis along with palliative care. They would like to continue with dialysis the next few days. PHYSICAL EXAMINATION: On examination today, blood pressure is 109/62, heart rate 59 per minute. Patient is obtunded. Her eyes open unpurposefully. EXAMINATION OF THE HEART: S1 and S2. EXAMINATION OF LUNGS: Bilateral breath sounds are decreased. ABDOMEN: Soft, obese. Left arm is significantly swollen. There is edema 1+ noted in bilateral lower extremities. LABS: Sodium 134, potassium 4.4, hemoglobin 9.4 g/dL. ASSESSMENT: 1. End-stage renal disease, on hemodialysis on a Sunday, Sunday, Sunday schedule. Patient will be dialyzed today. 2. Severe anoxic encephalopathy, not improving. 3. Status post cardiopulmonary arrest. 4. COVID pneumonia, status post extubation, status post steroids. PLAN: Hemodialysis today. Overall prognosis is guarded. Possible change to comfort care and discontinuation of renal replacement therapy if there is no further improvement in mentation. MMODL / IJN: [id number] /
[2021-02-14] MEDS: DEXTROSE 5%-0.45% NACL 1,000 ML IV SCH (19:21)
--- NOTE | 2021-02-14 19:25 | P.PN ---
Subjective Progress Note Date: 02/14/21 02/14/2021: Patient's nurse perfect serve me at 1:25 PM, stating "patient's is here in patient's room and would like to speak with you before he and his family makes a decision regarding PEG tube placement". Family requested reexamination and further discussion. I came to see the patient shortly afterwards. Patient's was also present. Patient currently laying in the bed, comfortably, in no distress. Patient opens her eyes, but does not make any eye contact, does not follow commands. Patient has some roving eye movements at times. Sometimes she blinks, which at times appears to coincide with some commands, which patient's family perceives as a meaningful response. No obvious seizure activity. No significant clinical improvement otherwise. Please refer to examination below. Patient had a computed tomography scan of head performed 02/07/2021, which revealed symmetric increased attenuation within the bilateral basal ganglia, new from 01/31/2021. Consider systemic/metabolic etiology such as nonketotic hyperglycemia. I suspect, it could also be related to hypoxic/anoxic encephalopathy. Repeat EEG from 6 02/05/2021 shows abnormal EEG with diffuse slowing consistent with severe cerebral dysfunction of a toxic metabolic or anoxic etiology. No epileptiform activity was reported. 02/04/2021: Patient has been off sedation since 8 AM yesterday. Now she is off sedation for over 30 hours. No meaningful response. Patient does open her eyes, but does not track, does not make eye contact, and does not follow commands. 02/03/2021: Patient has been off sedation since 8 AM. No significant improvement. No seizure activity. Patient continues to be comatose, on m echanical ventilation. Please refer to examination below. 02/02/2021: Patient essentially unchanged. Per nursing report, propofol was discontinued for about 1-1/2 hours. The vent kept on alarming while the sedation was discontinued. She started coughing and gagging and blood pressure went up. There was no meaningful response noted. Now back on propofol 20 g. 02/01/2021: Patient was seen for a follow-up at 12:30 PM. Patient sedation was discontinued at 11:30 AM. I saw her almost one hour after she was off sedation. Patient continued to be comatose, not responding to any internal or external stimuli. No seizure-like activity noted. Patient apparently started biting on the ET tube, started to bite on her tongue. Fortunately she did not bite her tongue, as propofol was resumed and the tongue was gently pushed inside. 01/31/2021: Patient is a 65-year-old female came to the hospital on 01/28/2021 at 2:07 PM after a cardiac arrest with the downtime of 25 minutes. Patient had undergone hemodialysis in the morning, then for errands with her , came back home and had mentioned that she was not feeling well, vomited before she collapsed and had cardiac arrest. Patient's family started CPR before EMS arrived. Patient was shocked twice, appendectomy was given once and was intubated. Patient currently on propofol 20 g. Patient was initially seen by Dr. Lenny Fernandez. Please refer to his note for details. Patient has developed encephalopathy probably multifactorial due to anoxic brain injury from prolonged cardiac arrest, component of metabolic encephalopathy with uncontrolled diabetes, hypotension, underlying pneumonia from Covid. Patient also has history of end-stage renal disease on hemodialysis. Patient had an EEG performed yesterday, which revealed background slowing suggestive of moderate encephalopathy. The bilateral frontal intermittent rhythmic delta activity is due to toxic metabolic disturbance or structural lesion. No epileptiform activity was seen. Patient's background has improved as compared to the EEG from the day prior for 01/15/2021. Patient's blood test shows WBC 10.3 hemoglobin 8.0, platelets 328. Sodium 130 potassium 4.4, BUN 33, creatinine 6.32. Hepatic panel normal. CT head from 01/31/2021 shows no acute process. Per nursing report, when sedation is decreased, patient starts biting on the ET tube and her breathing becomes fast. CT head reported as no acute process per radiology report from 01/31/2021. Although on my review, there is evidence of generalized cerebral edema, somewhat with effacement of the sulci as compared to the computed tomography scan from 01/29/2021. Objective - Vital Signs Vital signs: Vital Signs Temp 97.0 F L 02/14/21 08:00 Pulse 58 L 02/14/21 14:00 Resp 20 02/14/21 14:00 BP 134/63 02/14/21 14:00 Pulse Ox 98 02/14/21 14:00 Intake & Output 02/14/21 02/14/21 02/15/21 06:59 18:59 06:59 Intake Total 600 Balance 600 Weight 102.4 kg Intake: Intake, IV Titration 600 Amount Dextrose 5%-0.45% NaCl 1, 600 000 ml @ 50 mls/hr IV . Q20H [facility] Rx#:[id number] Other: Voiding Method Incontinent # Voids 0 ABP, PAP, CO, CI - Last Documented Arterial Blood Pressure 150/49 - Exam On examination patient is an elderly female, who is laying comfortably in the bed, keeps her eyes closed, but then opens spontaneously, blinks, some roving eye movements, not clearly tracks, or make eye contact. Patient pupils are round and reacting, oculocephalics are absent. Corneals are present. Face appears symmetric. Patient not on any sedation. Patient does not withdraw, or grimace to painful stimuli. Patient did not even flicker her fingers or toes to painful stimuli. Patient does not clearly blink to visual threat consistently, sometimes does. Face is symmetric. Reflexes are diminished, and plantars are flat. Patient has peripheral edema. - Labs CBC & Chem 7: 02/14/21 05:02 02/14/21 05:02 Labs: Abnormal Lab Results - Last 24 Hours (Table) 02/13/21 02/13/21 02/14/21 Range/Units 21:28 21:29 00:00 WBC (4.50-10.00) X 10*3/uL RBC (4.10-5.20) X 10*6/uL Hgb (12.0-15.0) g/dL Hct (37.2-46.3) % MCHC (32.0-37.0) g/dL RDW (11.5-14.5) % Immature Gran # (0.00-0.04) X 10*3/uL Neutrophils # (1.80-7.70) X 10*3/uL Sodium (135-145) mmol/L Anion Gap (4.00-12.00) mmol/L BUN (9.0-27.0) mg/dL Creatinine (0.6-1.5) mg/dL Est GFR (CKD-EPI)AfAm (60.0-200.0) Est GFR (CKD-EPI)NonAf (60.0-200.0) Glucose (70-110) mg/dL POC Glucose (mg/dL) 66 L 48 L 105 H (75-99) mg/dL Calcium (8.7-10.3) mg/dL 02/14/21 02/14/21 02/14/21 Range/Units 02:33 05:02 05:02 WBC 15.67 H (4.50-10.00) X 10*3/uL RBC 3.15 L (4.10-5.20) X 10*6/uL Hgb 9.4 L (12.0-15.0) g/dL Hct 30.1 L (37.2-46.3) % MCHC 31.2 L (32.0-37.0) g/dL RDW 16.2 H (11.5-14.5) % Immature Gran # 0.08 H (0.00-0.04) X 10*3/uL Neutrophils # 13.39 H (1.80-7.70) X 10*3/uL Sodium 134 L (135-145) mmol/L Anion Gap 13.80 H (4.00-12.00) mmol/L BUN 92.0 H (9.0-27.0) mg/dL Creatinine 4.9 H (0.6-1.5) mg/dL Est GFR (CKD-EPI)AfAm 10.0 L (60.0-200.0) Est GFR (CKD-EPI)NonAf 8.6 L (60.0-200.0) Glucose 136 H (70-110) mg/dL POC Glucose (mg/dL) 113 H (75-99) mg/dL Calcium 8.4 L (8.7-10.3) mg/dL 02/14/21 02/14/21 02/14/21 Range/Units 08:18 11:20 17:29 WBC (4.50-10.00) X 10*3/uL RBC (4.10-5.20) X 10*6/uL Hgb (12.0-15.0) g/dL Hct (37.2-46.3) % MCHC (32.0-37.0) g/dL RDW (11.5-14.5) % Immature Gran # (0.00-0.04) X 10*3/uL Neutrophils # (1.80-7.70) X 10*3/uL Sodium (135-145) mmol/L Anion Gap (4.00-12.00) mmol/L BUN (9.0-27.0) mg/dL Creatinine (0.6-1.5) mg/dL Est GFR (CKD-EPI)AfAm (60.0-200.0) Est GFR (CKD-EPI)NonAf (60.0-200.0) Glucose (70-110) mg/dL POC Glucose (mg/dL) 185 H 202 H 210 H (75-99) mg/dL Calcium (8.7-10.3) mg/dL Assessment and Plan Assessment: * Status post cardiac arrest with anoxic encephalopathy. Although patient is opening her eyes, but is not tracking, or showing meaningful response yet. * Probable superimposed component of metabolic encephalopathy. * End-stage renal disease on hemodialysis. * Acute Covid-19 related pneumonia. * Anemia. Plan: * I am not entirely sure what family is interested in regarding prognosis. Do they want her to be comfortable, or they want to continue medical/supportive care as long as she tolerates/survives. I informed patient's family that she has not shown significant clinical improvement. She is more awake, but is not showing any meaningful response. She is not moving her extremities, therefore probably has severe sensorymotor deficits. She will probably will not be able to speak, walk and probably will be in a vegetative state in half-way, for long-term care. After speaking to the patient's , he wanted all 4 children to have a telephone conference. I spent 16 minutes on the telephone with the patient's family. * Apparently patient's family finally decided to make patient hospice. Time with Patient: Greater than 30 (Counseling and coordinating care.)
--- NOTE | 2021-02-14 23:05 | PN ---
PROGRESS NOTE DATE OF SERVICE: 02/14/2021 This 65-year-old woman admitted after cardiac arrest and acute hypoxic respiratory failure also had anoxic brain injury. The patient is barely responsive. Patient is being closely monitored at this time. The family is considering PEG tube placement as well as hospice measures. Multiple consultants are following the patient closely. The creatinine is 4.9. Neurology is following the patient closely. EEG is noted. The patient is on hemodialysis on a Sunday, Sunday, Sunday schedule. Hemodialysis is being planned for today. Past medical history reviewed. Review of systems could not be taken; the patient is stuporous. CURRENT MEDICATIONS: Reviewed. They include Tylenol, Decadron, Apresoline, NovoLog, Ativan, Protonix. Doses are reviewed. PHYSICAL EXAMINATION: Pulse is 63, blood pressure 139/60, respiration 15, temperature 97 degrees, pulse ox 97% on 3 L. HEENT: Conjunctivae normal. NECK: No jugular venous distention. CARDIOVASCULAR SYSTEM: S1, S2 muffled. RESPIRATORY SYSTEM: Breath sounds diminished at the bases. A few scattered rhonchi. ABDOMEN: Soft. LEGS: No edema. No swelling. Nervous system could not be examined. LABS: WBC 15.6, hemoglobin 9.4. Creatinine noted. Cultures are negative so far. ASSESSMENT: 1. Status post cardiorespiratory arrest secondary to ventricular tachycardia and possible ventricular fibrillation. 2. Acute anoxic brain injury. 3. Change in mental status, toxic metabolic encephalopathy. 4. Acute hypoxic respiratory failure. 5. Volume overload. 6. Chronic kidney disease, end-stage renal disease, on hemodialysis. 7. Recent COVID-19 infection. 8. Diabetes mellitus, type 2. 9. Hypertension. 10.Diabetic peripheral neuropathy. 11.Bilateral lower extremity ulcers. 12.NO CODE, NO CPR, NO VENT. 13.Comfort measures and hospice. RECOMMENDATIONS AND DISCUSSION: In this 65-year-old woman who presented with multiple complex medical issues, the family had an extensive detailed discussion with Neurology. Because of the grave prognosis, they have decided to go with hospice measures at this time, and PEG tube placement was being canceled at this time. Otherwise, the dialysis also will be canceled per family's wishes. Will work with the group social worker and case fitter for discharge planning. Otherwise, we will continue to monitor. Prognosis extremely guarded because of the multiple complex medical issues. Further recommendations to follow. A copy of this dictation is being forwarded to Dr. Ingram, who is the primary physician. MMODL / IJN: [id number] /
[2021-02-14 23:56] LABS: Glucose,Whole Blood 286 mg/dL (75-99)
[2021-02-15] MEDS: INSULIN ASPART (NovoLOG) 100 UNIT/ML VIAL SQ SCH ×4 (00:39→18:29)
[2021-02-15] MEDS: MORPHINE SULFATE 2 MG/ML SYRINGE IV PRN ×4 (00:42→22:34)
[2021-02-15 05:43] LABS: Glucose,Whole Blood 307 mg/dL (75-99)
[2021-02-15 07:41] LABS: Glucose,Whole Blood 242 mg/dL (75-99)
[2021-02-15] MEDS: PANTOPRAZOLE 40 MG/10 ML VIAL IVP SCH ×2 (09:37→22:35)
[2021-02-15] MEDS: DEXAMETHASONE SOD PHOSPHATE 10 MG/ML 1 ML VIAL IV SCH (09:38)
[2021-02-15 12:33] LABS: Glucose,Whole Blood 245 mg/dL (75-99)
[2021-02-15] MEDS: ATROPINE OPHTH SOLN 1% 5ML BTL SUBLINGUAL PRN ×2 (13:10→17:00)
[2021-02-15] MEDS: DEXTROSE 5%-0.45% NACL 1,000 ML IV SCH (14:59)
--- NOTE | 2021-02-15 15:48 | P.PN ---
Subjective Progress Note Date: 02/15/21 This is a 65-year-old female who was recently admitted with acute hypoxic respiratory failure also with anoxic brain injury after cardiac arrest and is being closely monitored. Family has met with hospice and are signing on to hospice services. Family is unable to bring the patient home given the current living situations of multiple family members and small children living there. Possible discharge to [facility] hospice house and referrals were placed. Case management following. Patient continues to be unresponsive and has comfort measures ordered as needed. Multiple medical consultations including nephrology and neurology following as patient was maintained on hemodialysis for end-stage renal disease. Family has opted to discontinue dialysis at this time. Review of systems: Unable to obtain as patient continues to be stuporous and unresponsive Active Medications Acetaminophen (Acetaminophen Tab 325 Mg Tab) 650 mg PO Q4HR PRN PRN Reason: Fever and/or Mild Pain Atropine Sulfate (Atropine Ophth Soln 1% 5ml Btl) 1 drops SUBLINGUAL TID PRN PRN Reason: Secretions Last Admin: 02/15/21 13:10 Dose: 1 drops Documented by: Dexamethasone Sodium Phosphate (Dexamethasone Sod Phosphate 10 Mg/Ml 1 Ml Vial) 6 mg IV DAILY [facility] Last Admin: 02/15/21 09:38 Dose: 6 mg Documented by: Hydralazine HCl (Hydralazine Hcl 20 Mg/Ml 1 Ml Vial) 10 mg IVP Q4HR PRN PRN Reason: Blood Pressure - High Last Admin: 02/12/21 21:34 Dose: 10 mg Documented by: Dextrose/Sodium Chloride (Dextrose 5%-1/2ns Iv Soln) 1,000 mls @ 50 mls/hr IV .Q20H [facility] Last Admin: 02/15/21 14:59 Dose: Not Given Documented by: Insulin Aspart (Insulin Aspart (Novolog) 100 Unit/Ml Vial) 0 unit SQ Q6HR [facility]; Protocol Last Admin: 02/15/21 13:08 Dose: 3 unit Documented by: Lorazepam (Lorazepam 2 Mg/Ml Inj) 1 mg IV Q6HR PRN PRN Reason: Anxiety Morphine Sulfate (Morphine Sulfate 2 Mg/Ml Syringe) 2 mg IV Q15M PRN PRN Reason: Breakthrough Pain Last Admin: 02/15/21 05:51 Dose: 2 mg Documented by: Pantoprazole Sodium (Pantoprazole 40 Mg/10 Ml Vial) 40 mg IVP BID [facility] Last Admin: 02/15/21 09:37 Dose: 40 mg Documented by: Objective - Vital Signs Vital signs: Vital Signs Temp 97.0 F L 02/14/21 08:00 Pulse 56 L 02/15/21 08:00 Resp 12 02/15/21 08:00 BP 124/68 02/15/21 08:00 Pulse Ox 98 02/15/21 08:00 Intake & Output 02/14/21 02/15/21 02/15/21 18:59 06:59 18:59 Output Total 50 Balance -50 Weight 102.4 kg Output: Urine 0 Stool 50 Other: Voiding Method Incontinent Incontinent # Voids 0 0 ABP, PAP, CO, CI - Last Documented Arterial Blood Pressure 150/49 - Exam Gen: This is a 65-year-old female lying in bed stuporous, unresponsive. Current heart rate is 48 with respirations of 14 blood pressure is 107/55 and oxygen saturation is 91% on 3 L via nasal cannula. HEENT: Head is atraumatic, normocephalic. Pupils equal, round. Sclerae is anicteric. NECK: Supple. No JVD. No lymphadenopathy. No thyromegaly. LUNGS: Diminished breath sounds at the bases with a few scattered crackles and rhonchi noted HEART: S1, S2 are muffled ABDOMEN: Soft. Bowel sounds are present. No masses. No tenderness. EXTREMITIES: No pedal edema. No calf tenderness. NEUROLOGICAL: Unable to assess - Labs CBC & Chem 7: 02/14/21 05:02 02/14/21 05:02 Labs: Abnormal Lab Results - Last 24 Hours (Table) 02/14/21 02/14/21 02/15/21 Range/Units 17:29 23:55 05:42 POC Glucose (mg/dL) 210 H 286 H 307 H (75-99) mg/dL 02/15/21 02/15/21 Range/Units 07:35 12:32 POC Glucose (mg/dL) 242 H 245 H (75-99) mg/dL Assessment and Plan Assessment: Status post cardiorespiratory arrest secondary to ventricular tachycardia and possible ventricular fibrillation Acute anoxic brain injury Change in mental status, toxic metabolic encephalopathy Acute hypoxic respiratory failure Volume overload Chronic kidney disease, end-stage renal disease, on hemodialysis Recent COVID-19 infection Diabetes mellitus type 2 Hypertension Diabetic peripheral neuropathy Bilateral lower extremity ulcers No code, no CPR, no vent Comfort measures and hospice Recommendations and discussion: Recommend to continue with current comfort measures medications and symptomatic treatment. [facility] has not with the family and they are agreeable to hospice and currently looking for placement at [facility] and referrals were sent. These management is following and assisting with this. Family has opted to discontinue hemodialysis and continue with comfort measures only. Due to multiple complex medical issues, prognosis remains poor and extremely guarded. Further recommendations to follow. Possible discharge to hospice house in 24 hours.
--- NOTE | 2021-02-15 16:15 | P.PN ---
Subjective Progress Note Date: 02/15/21 02/15/2021: Patient was seen for a follow-up. No clinical improvement at all. Patient is laying comfortably in the bed. Patient has nasal cannula on. 02/14/2021: Patient's nurse perfect serve me at 1:25 PM, stating "patient's is here in patient's room and would like to speak with you before he and his family makes a decision regarding PEG tube placement". Family requested reexamination and further discussion. I came to see the patient shortly afterwards. Patient's was also present. Patient currently laying in the bed, comfortably, in no distress. Patient opens her eyes, but does not make any eye contact, does not follow commands. Patient has some roving eye movements at times. Sometimes she blinks, which at times appears to coincide with some commands, which patient's family perceives as a meaningful response. No obvious seizure activity. No significant clinical improvement otherwise. Please refer to examination below. Patient had a computed tomography scan of head performed 02/07/2021, which revealed symmetric increased attenuation within the bilateral basal ganglia, new from 01/31/2021. Consider systemic/metabolic etiology such as nonketotic hyperglycemia. I suspect, it could also be related to hypoxic/anoxic encephalopathy. Repeat EEG from 6 02/05/2021 shows abnormal EEG with diffuse slowing consistent with severe cerebral dysfunction of a toxic metabolic or anoxic etiology. No epileptiform activity was reported. 02/04/2021: Patient has been off sedation since 8 AM yesterday. Now she is off sedation for over 30 hours. No meaningful response. Patient does open her eyes, but does not track, does not make eye contact, and does not follow c ommands. 02/03/2021: Patient has been off sedation since 8 AM. No significant improvement. No seizure activity. Patient continues to be comatose, on mechanical ventilation. Please refer to examination below. 02/02/2021: Patient essentially unchanged. Per nursing report, propofol was discontinued for about 1-1/2 hours. The vent kept on alarming while the sedation was discontinued. She started coughing and gagging and blood pressure went up. There was no meaningful response noted. Now back on propofol 20 g. 02/01/2021: Patient was seen for a follow-up at 12:30 PM. Patient sedation was discontinued at 11:30 AM. I saw her almost one hour after she was off sedation. Patient continued to be comatose, not responding to any internal or external stimuli. No seizure-like activity noted. Patient apparently started biting on the ET tube, started to bite on her tongue. Fortunately she did not bite her tongue, as propofol was resumed and the tongue was gently pushed inside. 01/31/2021: Patient is a 65-year-old female came to the hospital on 01/28/2021 at 2:07 PM after a cardiac arrest with the downtime of 25 minutes. Patient had undergone hemodialysis in the morning, then for errands with her , came back home and had mentioned that she was not feeling well, vomited before she collapsed and had cardiac arrest. Patient's family started CPR before EMS arrived. Patient was shocked twice, appendectomy was given once and was intubated. Patient currently on propofol 20 g. Patient was initially seen by Dr. Lenny Fernandez. Please refer to his note for details. Patient has developed encephalopathy probably multifactorial due to anoxic brain injury from prolonged cardiac arrest, component of metabolic encephalopathy with uncontrolled diabetes, hypotension, underlying pneumonia from Covid. Patient also has history of end-stage renal disease on hemodialysis. Patient had an EEG performed yesterday, which revealed background slowing suggestive of moderate encephalopathy. The bilateral frontal intermittent rhythmic delta activity is due to toxic metabolic disturbance or structural lesion. No epileptiform activity was seen. Patient's background has improved as compared to the EEG from the day prior for 01/15/2021. Patient's blood test shows WBC 10.3 hemoglobin 8.0, platelets 328. Sodium 130 potassium 4.4, BUN 33, creatinine 6.32. Hepatic panel normal. CT head from 01/31/2021 shows no acute process. Per nursing report, when sedation is decreased, patient starts biting on the ET tube and her breathing becomes fast. CT head reported as no acute process per radiology report from 01/31/2021. Although on my review, there is evidence of generalized cerebral edema, somewhat with effacement of the sulci as compared to the computed tomography scan from 01/29/2021. Objective - Vital Signs Vital signs: Vital Signs Temp 97.0 F L 02/14/21 08:00 Pulse 48 L 02/15/21 14:00 Resp 14 02/15/21 14:00 BP 107/55 02/15/21 14:00 Pulse Ox 91 L 02/15/21 14:00 Intake & Output 02/14/21 02/15/21 02/15/21 18:59 06:59 18:59 Output Total 50 Balance -50 Weight 102.4 kg Output: Urine 0 Stool 50 Other: Voiding Method Incontinent Incontinent # Voids 0 0 ABP, PAP, CO, CI - Last Documented Arterial Blood Pressure 150/49 - Exam On examination patient is an elderly female, who is laying comfortably in the bed, very awake, eyes open, but does not make any eye contact, tracks or follows commands. Patient pupils are round and reacting, oculocephalics are absent. Corneals are present. Face appears symmetric. Patient not on any sedation. Patient does not withdraw, or grimace to painful stimuli. Patient did not even flicker her fingers or toes to painful stimuli. Patient does not clearly blink to visual threat consistently, sometimes does. Reflexes are diminished, and plantars are flat. Patient has peripheral edema. - Labs CBC & Chem 7: 02/14/21 05:02 02/14/21 05:02 Labs: Abnormal Lab Results - Last 24 Hours (Table) 02/14/21 02/14/21 02/15/21 Range/Units 17:29 23:55 05:42 POC Glucose (mg/dL) 210 H 286 H 307 H (75-99) mg/dL 02/15/21 02/15/21 Range/Units 07:35 12:32 POC Glucose (mg/dL) 242 H 245 H (75-99) mg/dL Assessment and Plan Assessment: * Status post cardiac arrest with severe anoxic encephalopathy. Patient is awake, but still not showing any meaningful response yet. * Probable superimposed component of metabolic encephalopathy. * End-stage renal disease on hemodialysis. * Acute Covid-19 related pneumonia. * Anemia. Plan: * Patient has not shown any clinical improvement. Today's examination, again shows no improvement. Overall prognosis for meaningful recovery is very low to poor. I have relayed to patient's and family as of yesterday. * Apparently patient's family finally meeting today to decide about possible hospice.
[2021-02-15 16:59] LABS: Glucose,Whole Blood 201 mg/dL (75-99)
[2021-02-15 21:07] LABS: Glucose,Whole Blood 184 mg/dL (75-99)
[2021-02-15 22:05] VITALS: BP 85/45
[2021-02-16] MEDS: MORPHINE SULFATE 2 MG/ML SYRINGE IV PRN ×2 (01:25→06:06)
[2021-02-16] MEDS: INSULIN ASPART (NovoLOG) 100 UNIT/ML VIAL SQ SCH ×3 (05:06→11:46)
[2021-02-16 07:26] LABS: Glucose,Whole Blood 340 mg/dL (75-99)
[2021-02-16 08:47] VITALS: PULSE 72; RESP 6
[2021-02-16] MEDS: PANTOPRAZOLE 40 MG/10 ML VIAL IVP SCH (10:04)
[2021-02-16] MEDS: DEXAMETHASONE SOD PHOSPHATE 10 MG/ML 1 ML VIAL IV SCH (10:04)
[2021-02-16] MEDS: DEXTROSE 5%-0.45% NACL 1,000 ML IV SCH (10:55)
--- NOTE | 2021-02-17 06:39 | DS ---
DISCHARGE SUMMARY PRIMARY CAUSE OF : Coronary atherosclerosis leading to ventricular fibrillation and ventricular tachycardia with cardiorespiratory arrest. OTHER DIAGNOSES: 1. Acute anoxic brain injury. 2. Metabolic toxic encephalopathy with change in mental status. 3. Acute hypoxic respiratory failure. 4. Volume overload. 5. Chronic kidney disease and end-stage renal disease on hemodialysis. 6. Recent COVID-19 infection. 7. Diabetes mellitus type 2. 8. Hypertension. 9. Diabetic peripheral neuropathy. 10.Bilateral lower extremity ulcers. 11.NO CODE, NO CPR, NO VENT. 12.Comfort measures. HISTORY OF PRESENT ILLNESS: This 65-year-old woman with a past history of multiple medical problems, as mentioned earlier, was admitted with cardiorespiratory arrest following episode of ventricular fibrillation, ventricular tachycardia, possibly to coronary atherosclerosis. The patient was monitored closely. Patient was mechanically intubated. Patient had features of anoxic brain injury. The patient continued to be unresponsive. Multiple consultants including Pulmonary and Neurology was consulted. This case discussed at length with the family and the family decided to go with comfort measures and the patient due to the above mentioned multiple complex medical issues. The prognosis once again was extremely guarded throughout the hospitalization. Multiple consultants saw the patient during the hospitalization. Please refer to the consultations and progress notes for further information. MMODL / IJN: [id number] /
== END 2021-02-16 12:19 | disposition expired | DRG 308 ==
LOC: EC 14:07 → 2SICU 15:20 → UNDOADMIN 15:20 → 2SICU 22:21 → 6NMEDSUR 02-12 16:47
PROVIDERS: ADMIT Internal Medicine; ATTEND Internal Medicine
PROC: 5A1955Z Respiratory Ventilation, Greater than 96 Consecutive Hours (ICD-10-PCS; principal; 2021-01-28)
PROC: 0D9670Z Drainage of Stomach with Drainage Device, Via Natural or Artificial Opening (ICD-10-PCS; 2021-01-28)
PROC: 2Y41X5Z Packing of Nasal Region using Packing Material (ICD-10-PCS; 2021-01-28)
PROC: 3E0G76Z Introduction of Nutritional Substance into Upper GI, Via Natural or Artificial Opening (ICD-10-PCS; 2021-01-29)
PROC: 05JY3ZZ Inspection of Upper Vein, Percutaneous Approach (ICD-10-PCS; 2021-01-30)
PROC: 4A133J1 Monitoring of Arterial Pulse, Peripheral, Percutaneous Approach (ICD-10-PCS; 2021-01-30)
PROC: 03HY32Z Insertion of Monitoring Device into Upper Artery, Percutaneous Approach (ICD-10-PCS; 2021-01-30)
PROC: 4A133B1 Monitoring of Arterial Pressure, Peripheral, Percutaneous Approach (ICD-10-PCS; 2021-01-30)
PROC: 06HM33Z Insertion of Infusion Device into Right Femoral Vein, Percutaneous Approach (ICD-10-PCS; 2021-01-30)
PROC: 5A1D70Z Performance of Urinary Filtration, Intermittent, Less than 6 Hours Per Day (ICD-10-PCS; 2021-01-31)
DX: I49.01 Ventricular fibrillation (principal); J96.01 Acute respiratory failure with hypoxia; G93.6 Cerebral edema; G92 Toxic encephalopathy; J18.9 Pneumonia, unspecified organism; I50.21 Acute systolic (congestive) heart failure; N18.6 End stage renal disease; I13.2 Hypertensive heart and chronic kidney disease with heart failure and with stage 5 chronic kidney disease, or end stage renal disease; G93.1 Anoxic brain damage, not elsewhere classified; E87.1 Hypo-osmolality and hyponatremia; E87.3 Alkalosis; L97.919 Non-pressure chronic ulcer of unspecified part of right lower leg with unspecified severity; L97.929 Non-pressure chronic ulcer of unspecified part of left lower leg with unspecified severity; J98.11 Atelectasis; I47.2 Ventricular tachycardia; I46.2 Cardiac arrest due to underlying cardiac condition; E11.649 Type 2 diabetes mellitus with hypoglycemia without coma; Z99.2 Dependence on renal dialysis; D32.9 Benign neoplasm of meninges, unspecified; L89.622 Pressure ulcer of left heel, stage 2; L89.612 Pressure ulcer of right heel, stage 2; Z79.4 Long term (current) use of insulin; I48.0 Paroxysmal atrial fibrillation; Z51.5 Encounter for palliative care; Z66 Do not resuscitate; B94.8 Sequelae of other specified infectious and parasitic diseases; E83.9 Disorder of mineral metabolism, unspecified; I95.9 Hypotension, unspecified; G93.89 Other specified disorders of brain; D63.1 Anemia in chronic kidney disease; I25.10 Atherosclerotic heart disease of native coronary artery without angina pectoris; E11.622 Type 2 diabetes mellitus with other skin ulcer; E11.42 Type 2 diabetes mellitus with diabetic polyneuropathy; E11.22 Type 2 diabetes mellitus with diabetic chronic kidney disease; K58.9 Irritable bowel syndrome, unspecified; E11.65 Type 2 diabetes mellitus with hyperglycemia; I77.9 Disorder of arteries and arterioles, unspecified; I89.0 Lymphedema, not elsewhere classified; T38.0X5A Adverse effect of glucocorticoids and synthetic analogues, initial encounter; R04.0 Epistaxis; G51.0 Bell's palsy; R32 Unspecified urinary incontinence; E66.9 Obesity, unspecified; Z68.36 Body mass index [BMI] 36.0-36.9, adult; Z79.01 Long term (current) use of anticoagulants; Z79.82 Long term (current) use of aspirin; Z79.899 Other long term (current) drug therapy; Z86.718 Personal history of other venous thrombosis and embolism; Z85.828 Personal history of other malignant neoplasm of skin; Z90.49 Acquired absence of other specified parts of digestive tract; Z87.19 Personal history of other diseases of the digestive system; Z87.2 Personal history of diseases of the skin and subcutaneous tissue; Z86.018 Personal history of other benign neoplasm; Z86.79 Personal history of other diseases of the circulatory system; Z87.39 Personal history of other diseases of the musculoskeletal system and connective tissue; Z98.51 Tubal ligation status; Z96.1 Presence of intraocular lens; Z98.41 Cataract extraction status, right eye; Z98.42 Cataract extraction status, left eye; Z98.891 History of uterine scar from previous surgery; Z98.890 Other specified postprocedural states; Z71.3 Dietary counseling and surveillance; Z88.2 Allergy status to sulfonamides; Z83.3 Family history of diabetes mellitus; Z80.42 Family history of malignant neoplasm of prostate; Z80.3 Family history of malignant neoplasm of breast
CPT/HCPCS: 36415; 36600; 70450; 71045; 71260; 80048; 80053; 81001; 82550; 82728; 82805; 83615; 83625; 83735; 84100; 84145; 84484; 85025; 85027; 85379; 85384; 85610; 86140; 87070; 87205; 87635; 90935; 93005; 93306; 94002; 94003; 94640; 95816; 95819; 96374; 96375; 99291